=== PATIENT | female | born 2000 | race Caucasian/White ===

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

== ENCOUNTER → 2019-03-04 12:11 | Outpatient (CLI) | payer MEDICAID, SELFPAY ==
[2019-03-04 11:26] VITALS: BMI 25.8
[2019-03-04 13:21] LABS: Prolactin 5.4 ng/mL; Thyroid Stim Hormone (TSH) 1.01 uIU/mL (0.358-3.74)
== END ==
PROVIDERS: Family Provider Pediatrics; PCP Pediatrics; Referring Provider Nurse Practitioner Women's Health; Visit Provider Nurse Practitioner Women's Health
DX: N91.1 Secondary amenorrhea (principal)
CPT/HCPCS: 36415; 84146; 84443

== ENCOUNTER 2019-03-31 11:10 | Emergency (ER) | payer MEDICAID, SELFPAY ==
[2019-03-04 11:26] VITALS: BMI 25.8
[2019-03-31 11:11] VITALS: BP 130/73; PULSE 90; RESP 16; TEMP 36.8; BMI 23.1
--- NOTE | 2019-03-31 11:26 | ED.VIS.GEN ---
History of Present Illness Chief Complaint: Fatigue Informant: Patient Onset: Today Current Severity: Mild Maximum Severity: Mild Narrative: Patient felt slightly lightheaded this morning. She has had some dental pain for some time and it got worse over the past few days. She may have had decreased p.o. intake. She feels lightheaded. She has no chest pain shortness of breath fever or chills. She denies . She has no PE or DVT risk factors. She did not have a syncopal episode she does not have a headache but she does have right side of the face pain. Past Medical History - Allergies and Home Meds Allergies/Adverse Reactions: Allergies No Known Allergies Allergy (Verified 03/31/19 11:12) Primary Care Physician: Deysi Soriano MD [Primary Care Provider] - Past Medical History: - - Endometriosis Smoking Status: Unknown if ever smoked Review of Systems All systems negative except as indicated General: Denies: Fever Eyes: Denies: Visual changes - bilaterally ENT: Reports: - - Dental pain is in HPI Cardiovascular: Denies: Chest pain Respiratory: Denies: Dyspnea, Cough Gastrointestinal: Denies: Abdominal pain Genitourinary: Denies: Dysuria Musculoskeletal: Denies: Myalgias Skin: Denies: Rash, Abscess Neurological: Denies: Weakness Physical Exam Vital Signs/Narrative: Vital Signs Temp Pulse Resp BP 03/31/19 11:11 98.2 F 90 16 130/73 H General: Well nourished, Well developed Eyes: Perrl ENT: - - Slightly dry mucous membrane. She has right lower molar tenderness to palpation she has dental decay I cannot palpate any abscesses. There is no facial swelling. Cardiovascular: Regular rate, Regular rhythm Respiratory: No distress, CTA bilaterally Abdomen: Soft, Nontender Back: Nontender, Normal Inspection Extremities: Nontender Skin: Normal color Neurological: Alert Diagnostic/Tx/Re-eval - Medical Decision Making Patient has a normal exam, she is not tachycardic, she has slightly dry mucous membranes which is likely causing her to be lightheaded she opted for p.o. hydration. I will start antibiotics and give her Naprosyn for home. Bath discharge stable condition ED Disposition - Plan for ED Patient: Disposition: Home or Assisted Living Diagnosis: Mild dehydration, Pain, dental Prescriptions: Naproxen [Naprosyn] 500 mg PO BID PRN #20 tab Transmission Status: Pending to [facility] #30 Penicillin Vk [Pen-Vee K 250MG] 250 mg PO 4X/DAY #28 tab Transmission Status: Pending to [facility] #30 Ondansetron [Zofran Odt] 4 mg PO Q8H PRN PRN #10 tab PRN Reason: Nausea Transmission Status: Pending to [facility] #30 Referrals: Deysi Soriano MD [Primary Care Provider] - 3-5 Days
[2019-03-31 11:59] VITALS: BP 107/63; PULSE 72
== END 2019-03-31 12:09 | disposition home or self-care (01) ==
LOC: ED 12:01
PROVIDERS: Emergency Provider Emergency Medicine; Family Provider Pediatrics; PCP Pediatrics
DX: E86.0 Dehydration (principal); K08.89 Other specified disorders of teeth and supporting structures; K02.9 Dental caries, unspecified; Z79.899 Other long term (current) drug therapy
CPT/HCPCS: 99282

== ENCOUNTER 2019-05-21 15:31 | Emergency (ER) | payer MEDICAID, SELFPAY ==
[2019-05-21 15:31] VITALS: BP 118/79; PULSE 76; RESP 15; TEMP 36.7; O2SAT 98; BMI 22.3
--- NOTE | 2019-05-21 15:41 | CT_ITS ---
STUDY: CT ABDOMEN AND PELVIS WITH CONTRAST REASON FOR EXAM: Female, 19 years old. N/V, LOWER ABD PAIN SINCE SATURDAY NIGHT. FATIGUE. H/O ENDOMETRIOSIS, DIAGNOSED NOVEMBER 2018 AFTER LAPARSCOPY. RADIATION DOSAGE (If Supplied By Facility): CTDIvol = ( 8.33 ) mGy, DLP = ( 328.10 ) mGycm TECHNIQUE: Transaxial images were obtained from the dome of the diaphragm to the symphysis pubis without oral contrast. Oral and amp; IV Gastrografin and amp; 100mL Isovue-300 was administered. Sagittal and coronal images were reconstructed. Individualized dose optimization techniques were used for this CT. COMPARISON: None. FINDINGS: The visualized lung bases are unremarkable. The visualized portions of the heart are within normal limits. Normal liver. Normal gallbladder and extrahepatic biliary system. Normal spleen. Normal pancreas. Normal bilateral adrenal glands. Normal right kidney. Normal left kidney. Normal visualized stomach. Normal small intestine. Normal colon. There is non-visualization of the appendix. Normal abdominal aorta. Normal inferior vena cava. Normal retroperitoneum. Normal urinary bladder. There is a small umbilical hernia containing fat. Normal osseous structures. CT/Abdomen/Pelvis WITH Contrast IMPRESSION: Small fat-containing umbilical hernia. The appendix is not visualized. There is no evidence of pericecal inflammatory process. There is no evidence of free intra-abdominal or intrapelvic air or fluid. Electronically Signed: Taras Weber MD at 17:47 EST , Service support ,
--- NOTE | 2019-05-21 15:52 | ED.DCSUM_ITS ---
- ER Visit Summary Date of Service: 05/21/19 Chief Complaint: Nausea, vomiting History of Present Illness: The patient is a 19 F presenting with nausea, vomiting, diarrhea. This started on Saturday. She states she had several episodes of diarrhea overnight and she had 2 episodes of vomiting. She also complains of abdominal pain. She took a test yesterday which was negative. She states her period is 1 day late but her periods are typically irregular. She denies fever. Denies other complaints. Physical Examination: Vitals are stable. Patient is afebrile. Alert no acute distress. HEENT exam is unremarkable. Neck is supple. Lungs are clear and equal bilaterally. Heart is regular rate and rhythm. Abdomen is soft right lower quadrant, no rebound or guarding Extremities are unremarkable. Skin is warm and dry. No focal neurologic deficit. Remainder of exam is unremarkable. Emergency Department Course and Treatment: CBC, chemistries unremarkable other than potassium 3.0. Liver lipase are normal. hCG negative. Patient given IV fluids, Zofran, potassium oral replacement. CT abdomen pelvis shows small fat- containing umbilical hernia. The appendix is not visualized. There is no evidence of pericecal inflammatory process. There is no evidence of free intra- abdominal or intrapelvic air or fluid. On reevaluation, patient is resting comfortably. She was advised strict return instructions should her symptoms worsen. Advised to follow-up with primary care physician. She is given prescription for Zofran. Advised return to ED for worsening complaints. Disposition: Discharge home Impression: Vomiting and diarrhea This note was generated with [employer] dictation software. It may contain incorrect words, spelling, and punctuation that were not noted in review of the chart prior to signing ED Disposition - Plan for ED Patient: Instructions: VOMITING AND DIARRHEA, Nonspecific (Adult) Prescriptions: Ondansetron [Zofran Odt] 4 mg PO Q8H PRN PRN #10 tab PRN Reason: Nausea Prescription Printed Referrals: Deysi Soriano MD [Primary Care Provider] -
[2019-05-21 15:57] LABS: Absolute Lymphocyte Count 1.73 X10^3/uL (0.83-4.51); Absolute Neutrophil Count 3.4 X10^3/uL (2.0-7.7); Basophil# 0.03 X10^3/uL; Basophil% 0.5 % (0-1); Eosinophil# 0.06 X10^3/uL; Eosinophils% 1.1 % (0-5); Hematocrit 41.2 % (37-47); Hemoglobin 14.5 g/dL (12.0-15.0); Lymphocyte # 1.73 X10^3/ul (4.0); Lymphocyte % 30.5 % (19-41); Mean Corp Hgb Conc 35.2 g/dL (32-36); Mean Corpuscular Hgb 30.3 pg (27.0-32.0); Mean Platelet Vol. 10.5 fl (6.2-12.0); Monocyte# 0.47 X10^3/uL; Monocyte% 8.3 % (0-10); NRBC Flagged by Analyzer 0 % (0-5); Neutrophil # 3.37 X10^3/uL (2.7-7.7); Neutrophil % 59.4 % (47-70); Platelet Count 153 K/mm3 (150-450); RBC Distribution Width CV 11.8 % (11.6-14.6); RBC Distribution Width SD 37.2 fl (35.1-43.9); Red Blood Count 4.79 M/mm3 (4.2-5.4); White Blood Count 5.7 K/mm3 (4.4-11.0)
[2019-05-21 16:16] VITALS: RESP 16
[2019-05-21 16:16] LABS: ALB/GLOB Ratio 1.2 RATIO (0.9-2.4); AST(SGOT) 24 U/L (15-37); Alanine Aminotransfer ALT/SGPT 27 U/L (13-56); Albumin, Serum 3.9 g/dL (3.2-5.0); Alkaline Phosphatase 79 U/L (45-117); Anion Gap 5 (5-15); BUN 16 mg/dL (7-18); BUN/Creat Ratio 22.3 RATIO (10-20); Calcium,Total 8.8 mg/dL (8.5-10.1); Chloride 109 mmol/L (98-107); Creatinine, Serum 0.72 mg/dL (0.55-1.02); EST Glomerular Filtration Rate 110 mL/min (>60); Est Glom Filt Rate - Afr Amer 134 mL/min (>60); Estimated Creatinine Clearance 107.63 ml/min; Globulin 3.3 g/dL (2.2-4.2); Glucose 79 mg/dL (74-106); Lipase 165 U/L (73-393); Protein, Total 7.2 g/dL (6.4-8.2); Sodium Level 140 mmol/L (136-145)
[2019-05-21] MEDS: 0.9% Normal Saline 1,000 ML 1000 ML IV (16:16)
[2019-05-21] MEDS: Ondansetron 4 MG/2 ML Vial IV (16:16)
[2019-05-21 16:21] LABS: Internal QC Validated? YES +Cl - CLEAR BKGD; Pregnancy, Serum, hCG Quali. NEGATIVE Negative
--- NOTE | 2019-05-21 18:17 | ED.DEP ---
ED Disposition - Plan for ED Patient: Instructions: VOMITING AND DIARRHEA, Nonspecific (Adult) Prescriptions: Ondansetron [Zofran Odt] 4 mg PO Q8H PRN PRN #10 tablet PRN Reason: Nausea Referrals: Deysi Soriano MD [Primary Care Provider] -
[2019-05-21 18:29] VITALS: BP 116/75; PULSE 80; RESP 16; O2SAT 100
== END 2019-05-21 18:30 | disposition home or self-care (01) ==
LOC: ED 16:39
PROVIDERS: Emergency Provider Emergency Medicine; PCP Pediatrics
DX: R11.2 Nausea with vomiting, unspecified (principal); R19.7 Diarrhea, unspecified; K42.9 Umbilical hernia without obstruction or gangrene; Z79.899 Other long term (current) drug therapy
CPT/HCPCS: 74177; 80053; 83690; 84703; 85025; 96361; 96374; 99284; J7030; Q9967; A4216; J2405

== ENCOUNTER 2020-03-01 10:58 | Emergency (ER) | payer MEDICAID, SELFPAY ==
[2019-10-07 09:30] VITALS: BMI 22.3
[2020-03-01 10:59] VITALS: BP 131/66; PULSE 93; RESP 16; TEMP 36.3; BMI 22.8
--- NOTE | 2020-03-01 11:40 | US_ITS ---
STUDY: FIRST TRIMESTER OBSTETRICAL ULTRASOUND REASON FOR EXAM: Female, 19 years old PAIN W/EARLY PREG QUANT [id number] LMP: 01/17/2020 TECHNIQUE: Transvaginal TECHNICAL QUALITY: Adequate. PRIOR ULTRASOUND: None. FINDINGS: There is visualization of a single gestational sac in a normal intrauterine position. The mean sac diameter (MSD) measures 1.28 cm, indicating an estimated gestational age (EGA) of 6 weeks, 0 days. The gestational sac shape is within normal limits. There is a visualized yolk sac. The yolk sac measures 4.2 mm. The placenta is non-visualized. There is visualization of a live embryo. The crown-rump length (CRL) measures 2.5 mm, indicating an estimated gestational age (EGA) of 5 weeks, 6 days. There is demonstrated cardiac activity with a heart rate of 1:15 bpm. The estimated gestation age (EGA) by LMP is 6 weeks, 2 days. The estimated date of delivery (CHRISTIE) by LMP is 10/23/2020. The estimated gestation age (EGA) by US is 6 weeks, 0 days. The estimated date of delivery (CHRISTIE) by US is 10/25/2020. The uterus measures 7.7 cm x 6.5 cm x 5.1 cm. There is no demonstrated uterine fibroid. The cervix is closed. There is a 1.8 cm x 0.8 cm by 1.3 cm subchorionic bleed. The right ovary measures 4.3 cm x 2.8 cm x 2.0 cm. 2.1 cm x 1.6 cm x 1.9 cm hypoechoic nodule in the right ovary most likely representing a regressing cyst. There is no visualized right adnexal mass or complex lesion. The left ovary measures 2.4 cm x 2.6 cm x 1.3 cm. There is no left ovarian cyst. There is no visualized left adnexal mass or complex lesion. There is no fluid in the cul de sac. US/Transvaginal w/Preg US IMPRESSION: Single live uterine gestation with a mean gestational age of 6 weeks. Small subchorionic bleed. Electronically Signed: Santos Burnett, at 13:55 EDT , Service support ,
--- NOTE | 2020-03-01 11:41 | ED.DCSUM_ITS ---
- ER Visit Summary Date of Service: 03/01/20 Chief Complaint: [Abdominal pain] History of Present Illness: The patient is a 19 F [presents to the emergency department complaint of abdominal pain that started around 9:40 AM. Patient states that she had gone to the restroom and had some discomfort that she noted on the right side of her lower pelvis and a burning sensation in her abdomen. She has had that discomfort since that time. Patient is and her last menstrual period was January 16. She has taken multiple home test that been positive. She has a follow-up appointment with her NEWS VIDEOTAPE EDITOR but has had no care as of yet and no ultrasound. She denies any vaginal bleeding. She denies urinary symptoms. She had some mild nausea. Patient is normally a smoker but she quit when she found out she was .] Physical Examination: [HEENT-PERRLA, EOMI. Cranial nerves II through XII grossly intact. TMs clear. Mucous membranes moist. No adenopathy. Cardiovascular-regular rate and rhythm without murmur or ectopy Lungs-clear to auscultation, chest wall stable without crepitus or subcu emphysema Abdomen-normoactive bowel sounds, soft. Patient has some mild tenderness over the right lower quadrant into the right pelvis. There is no rebound, rigidity, or peritoneal signs. No masses palpated. Extremities-intact ?4, normal range of motion, normal pulses, atraumatic] Test Results: [CBC with differential obtained showed a white count 5.7, hemoglobin 13, hematocrit 40, plates 151. Urinalysis was normal. Blood type was a positive. Patient had a pelvic ultrasound that showed a single live intrauterine at 6 weeks with small subchorionic bleed. There was heart tones of 115 bpm.] Emergency Department Course and Treatment: [IV line established on arrival. Case was discussed with patient's NEWS VIDEOTAPE EDITOR who asked that she follow-up with our office.] On repeat examination at 1410 patient's abdominal pain essentially resolved. Treatment Plan: [Patient to follow-up with her NEWS VIDEOTAPE EDITOR at scheduled appointment. She is advised to return if worsening pain, fever, vomiting, vaginal bleeding, or condition should worsen anyway.] Disposition: [Discharged home in stable condition] Impression: [Abdominal pain-resolved First trimester ] This note was generated with [employer] software. It may contain incorrect words, spelling, and punctuation that were not noted in review of the chart prior to signing ED Disposition - Plan for ED Patient: Referrals: Deysi Soriano MD [Primary Care Provider] -
[2020-03-01 12:04] LABS: Absolute Lymphocyte Count 1.85 X10^3/uL (0.83-4.51); Absolute Neutrophil Count 3.3 X10^3/uL (2.0-7.7); Basophil# 0.04 X10^3/uL; Basophil% 0.7 % (0-1); Eosinophil# 0.05 X10^3/uL; Eosinophils% 0.9 % (0-5); Hematocrit 39.9 % (37-47); Hemoglobin 13.3 g/dL (12.0-15.0); Lymphocyte # 1.85 X10^3/ul (4.0); Lymphocyte % 32.3 % (19-41); Mean Corp Hgb Conc 33.3 g/dL (32-36); Mean Corpuscular Hgb 29.3 pg (27.0-32.0); Mean Corpuscular Volume 87.9 fL (81-99); Mean Platelet Vol. 10.9 fl (6.2-12.0); Monocyte# 0.47 X10^3/uL; Monocyte% 8.2 % (0-10); NRBC Flagged by Analyzer 0 % (0-5); Neutrophil # 3.31 X10^3/uL (2.7-7.7); Neutrophil % 57.7 % (47-70); Platelet Count 151 K/mm3 (150-450); RBC Distribution Width CV 12.3 % (11.6-14.6); RBC Distribution Width SD 39.9 fl (35.1-43.9); Red Blood Count 4.54 M/mm3 (4.2-5.4); White Blood Count 5.7 K/mm3 (4.4-11.0)
[2020-03-01 12:19] LABS: Mucous, Urine 0 SEEN /hpf (<or=2+); Red Blood Cells-Urine 0 SEEN /hpf (0-5)
[2020-03-01 12:42] LABS: Color, Urine Yellow (Yellow); Glucose, Dipstick Normal (Normal); Ketone-Dipstick Negative (Negative); Leukocyte Esterase-Dipstick Negative /ul (Negative); Nitrite-Dipstick Negative (Negative); Occult Blood-Urine Negative /ul (Negative); Protein-Dipstick Negative (Negative); Urine Bilirubin Dipstick Negative (Negative); Urine Clarity Clear (Clear); Urine Urobilinogen Normal (Normal)
[2020-03-01 12:55] LABS: Bacteria 1+ /hpf (None Seen); Squamous Epithelial Cells - UA 5-10 SEEN /hpf (5-10); White Blood Cells 0-5 SEEN /hpf (0-5)
[2020-03-01 13:10] LABS: hCG Titer Quant., Serum 16458 mIU/mL (1-3)
--- NOTE | 2020-03-01 14:09 | ED.DEP ---
ED Disposition - Plan for ED Patient: Instructions: ED Abdominal Pain Unkn Cause Fem Referrals: Deysi Soriano MD [Primary Care Provider] - Cathy Wakefield MD [STAFF PHYSICIAN] - 5-7 Days
[2020-03-01 14:15] VITALS: BP 113/70; PULSE 77; RESP 16; O2SAT 100
== END 2020-03-01 14:16 | disposition home or self-care (01) ==
LOC: ED 11:46
PROVIDERS: Emergency Provider Emergency Medicine; PCP Pediatrics
DX: O26.891 Other specified pregnancy related conditions, first trimester (principal); R10.31 Right lower quadrant pain; O20.9 Hemorrhage in early pregnancy, unspecified; Z87.891 Personal history of nicotine dependence; Z3A.01 Less than 8 weeks gestation of pregnancy
CPT/HCPCS: 76817; 81001; 84702; 85025; 86900; 86901; 99282; A4216

== ENCOUNTER 2020-03-13 13:12 | Emergency (ER) | payer MEDICAID, SELFPAY ==
[2020-03-13 13:12] VITALS: BP 128/73; PULSE 83; RESP 16; TEMP 36.7; O2SAT 99
[2020-03-13 13:13] VITALS: BP 128/73; PULSE 83; RESP 16; TEMP 36.7; BMI 24.0
--- NOTE | 2020-03-13 13:29 | ED.DCSUM_ITS ---
History of Present Illness Chief Complaint: Complaint Detail of Chief Complaint: Dysuria, frequency and hematuria Onset: Yesterday Context: Sudden Onset Timing: Intermittent Quality: Urinary symptoms Location: , lower Current Severity: - Maximum Severity: Moderate Worsened by: Urination Relieved by: Nothing Associated Symptoms: No associated symptoms Narrative: Patient is a G2, P1 Ab0 female who had an ultrasound on March 01 and revealed a single live intrauterine at approximately 6 weeks. She presents with dysuria, frequency and hematuria. She denies nausea or vomiting. She denies suprapubic or central low back pain. She denies right or left flank pain. She denies vaginal bleeding or vaginal discharge. She states she had no complications with first . She denies rash. She denies headache, visual, ocular auditory symptoms. Prior similar symptoms: Yes Recent Illness/Hospitalization: No - Abdominal pain, ER visit March 01, 2020 - Past Medical History (1) Anxiety and depression Status: Acute (2) Endometriosis Status: Acute Comment: confirmed with laparoscopy 2018 (3) Fatigue Status: Acute (4) Pilonidal cyst Status: Acute Past Medical History - Allergies and Home Meds Allergies/Adverse Reactions: Allergies No Known Allergies Allergy (Verified 03/13/20 13:15) Primary Care Physician: Deysi Soriano MD [Primary Care Provider] - Prior records reviewed: Yes Surgical History: noncontributory Lives: With Family Smoking Status: Former smoker Alcohol: None Drugs: None Review of Systems General: Denies: Chills, Fever, Malaise, Subjective, Sweats Eyes: Denies: Visual changes - bilaterally, Blurred Vision - bilaterally ENT: Denies: Rhinorrhea, Sore throat Cardiovascular: Denies: Chest pain, Palpitations Respiratory: Denies: Dyspnea, Cough, Dyspnea on exertion Gastrointestinal: Reports: Nausea - Morning sickness. Denies: Abdominal pain, Vomiting, Diarrhea Genitourinary: Reports: Dysuria, Hematuria, Frequency Musculoskeletal: Denies: Myalgias, Arthralgias, Neck pain, Back pain Neurological: Denies: Headache, Weakness Physical Exam Vital Signs/Narrative: Vital Signs Temp Pulse Resp BP Pulse Ox 03/13/20 13:13 98.1 F 83 16 128/73 H 03/13/20 13:12 98.1 F 83 16 128/73 H 99 Inital Vital Signs reviewed: Yes General: Well nourished, Well developed, No Acute Distress Head: Normocephalic, Atraumatic Eyes: Perrl, EOMI. Negative for: Pale conjunctiva, Scleral icterus ENT: Moist mucous membranes, No rhinorrhea Neck: Supple, Nontender, No lymphadenopathy, No JVD Cardiovascular: Regular rate, Regular rhythm, No murmurs, Normal S1, Normal S2 Respiratory: No distress, CTA bilaterally, Chest nontender Abdomen: Soft, Nontender, Nondistended, Normal bowel sounds. Negative for: No masses Back: Nontender, Normal Inspection. Negative for: CVA tenderness Skin: Negative for: Normal color, No rash Neurological: Alert, Oriented x3, Cranial nerves II-XII grossly intact, Normal Strength, Normal Sensation Psychological: Normal affect, Normal Mood Diagnostic/Tx/Re-eval Laboratory Results 03/13/20 11:20 Urine Color Yellow Urine Clarity Sl. Cloudy Urine pH 6.5 Ur Specific [place] 1.020 Urine Protein 30 H Urine Glucose (UA) Normal Urine Ketones Negative Urine Occult Blood 250 H Urine Nitrite Negative Urine Bilirubin Negative Urine Urobilinogen Normal Ur Leukocyte Esterase 500 H Urine RBC 25-50 SEEN Urine WBC 50-100 SEEN Ur Squamous Epith Cells 0-5 SEEN Urine Bacteria 2+ Urine Mucus 0 SEEN Urine is consistent with infection. She received a dose of Rocephin IV piggyback. She was discharged with prescription for antibiotics. She is to follow-up with her motor driver Dr. Gregorio Gutierrez in 2 to 3 days. - Medical Decision Making Presents with urinary symptoms. She is . Will obtain UA. If evidence of bacteria or prior urea will send culture and treat with antibiotics since she is . ED Disposition - Plan for ED Patient: Disposition: Home or Assisted Living Diagnosis: Acute cystitis during in first trimester Instructions: ED CYSTITIS Female Adult Prescriptions: Cephalexin [Keflex] 500 mg PO Q6 #28 cap Transmission Status: Pending to [facility]30 Phenazopyridine HCl [Pyridium] 200 mg PO TID #10 tab Transmission Status: Pending to [facility]30 Referrals: Deysi Soriano MD [Primary Care Provider] - Cathy Wakefield MD [STAFF PHYSICIAN] - 3-5 Days
[2020-03-13 13:39] LABS: Mucous, Urine 0 SEEN /hpf (<or=2+)
[2020-03-13 13:41] LABS: Color, Urine Yellow (Yellow); Glucose, Dipstick Normal (Normal); Ketone-Dipstick Negative (Negative); Leukocyte Esterase-Dipstick 500 /ul (Negative); Nitrite-Dipstick Negative (Negative); Occult Blood-Urine 250 /ul (Negative); Protein-Dipstick 30 mg/dl (Negative); Urine Bilirubin Dipstick Negative (Negative); Urine Clarity Sl. Cloudy (Clear); Urine Urobilinogen Normal (Normal); Urine pH 6.5 (5.0 - 8.0)
[2020-03-13 13:48] LABS: Bacteria 2+ /hpf (None Seen); Red Blood Cells-Urine 25-50 SEEN /hpf (0-5); Squamous Epithelial Cells - UA 0-5 SEEN /hpf (5-10); White Blood Cells 50-100 SEEN /hpf (0-5)
[2020-03-13 14:48] VITALS: BP 128/73; PULSE 83; RESP 16; TEMP 36.7; O2SAT 99
[2020-03-13] MEDS: Ceftriaxone 1 GM/50 ML BAG IV (14:51)
[2020-03-13 15:14] VITALS: BP 118/62; PULSE 79; RESP 18; O2SAT 99
== END 2020-03-13 15:15 | disposition home or self-care (01) ==
PROVIDERS: Emergency Provider Emergency Medicine; PCP Pediatrics
DX: O23.11 Infections of bladder in pregnancy, first trimester (principal); Z3A.01 Less than 8 weeks gestation of pregnancy; Z87.891 Personal history of nicotine dependence
CPT/HCPCS: 81001; 96365; 99283; A4216

== ENCOUNTER → 2020-03-15 17:00 | Outpatient (CLI) | payer MEDICAID, SELFPAY ==
[2020-03-15 11:31] VITALS: BMI 22.0
== END ==
PROVIDERS: PCP Pediatrics; Referring Provider Nurse Practitioner Women's Health; Visit Provider Nurse Practitioner Women's Health
DX: N39.0 Urinary tract infection, site not specified (principal)
CPT/HCPCS: 87086

== ENCOUNTER → 2020-03-17 | Outpatient (CLI) | payer MEDICAID, SELFPAY ==
[2020-03-17 11:43] VITALS: BMI 23.0
[2020-03-21 20:07] LABS: Chlamydia By Nucleic Acid AMP Negative (Negative)
[2020-03-21 21:08] LABS: Gonococcus By Nucleic Acid AMP Negative (Negative)
== END | disposition home or self-care (01) ==
LOC: LABSPEC 13:13
PROVIDERS: PCP Pediatrics; Visit Provider Obstetrics & Gynecology
DX: Z34.90 Encounter for supervision of normal pregnancy, unspecified, unspecified trimester (principal)
CPT/HCPCS: 87491; 87591

== ENCOUNTER → 2020-03-30 17:38 | Outpatient (CLI) | payer MEDICAID, SELFPAY ==
[2020-03-17 11:43] VITALS: BMI 23.0
== END ==
PROVIDERS: PCP Pediatrics
DX: R09.89 Other specified symptoms and signs involving the circulatory and respiratory systems (principal); G44.209 Tension-type headache, unspecified, not intractable
CPT/HCPCS: 87635; C9803; U0003

== ENCOUNTER → 2020-04-04 09:32 | Outpatient (CLI) | payer MEDICAID, SELFPAY ==
[2020-03-17 11:43] VITALS: BMI 23.0
[2020-04-04 10:35] LABS: Absolute Lymphocyte Count 1.63 X10^3/uL (0.83-4.51); Absolute Neutrophil Count 4.2 X10^3/uL (2.0-7.7); Basophil# 0.02 X10^3/uL; Basophil% 0.3 % (0-1); Eosinophil# 0.08 X10^3/uL; Eosinophils% 1.3 % (0-5); Hematocrit 40.8 % (37-47); Hemoglobin 13.3 g/dL (12.0-15.0); Lymphocyte # 1.63 X10^3/ul (4.0); Lymphocyte % 25.9 % (19-41); Mean Corp Hgb Conc 32.6 g/dL (32-36); Mean Corpuscular Hgb 28.7 pg (27.0-32.0); Mean Corpuscular Volume 87.9 fL (81-99); Mean Platelet Vol. 10.9 fl (6.2-12.0); Monocyte# 0.38 X10^3/uL; NRBC Flagged by Analyzer 0 % (0-5); Neutrophil # 4.17 X10^3/uL (2.7-7.7); Neutrophil % 66.3 % (47-70); Platelet Count 170 K/mm3 (150-450); RBC Distribution Width CV 12.8 % (11.6-14.6); RBC Distribution Width SD 41.6 fl (35.1-43.9); Red Blood Count 4.64 M/mm3 (4.2-5.4); White Blood Count 6.3 K/mm3 (4.4-11.0)
[2020-04-04 10:39] LABS: NATERA MAILED SPECIMEN
[2020-04-04 11:32] LABS: HIV - WCH Non-Reactive (Nonreactive); Hepatitis B Surface Antigen Non-Reactive (Nonreactive); Hepatitis C Antibody Non-Reactive (Nonreactive)
[2020-04-07 02:17] LABS: Rapid Plasmin Reagin (RPR) NONREACTIVE (NONREACTIVE)
== END ==
PROVIDERS: PCP Pediatrics; Referring Provider Obstetrics & Gynecology; Visit Provider Obstetrics & Gynecology
DX: Z34.81 Encounter for supervision of other normal pregnancy, first trimester (principal); Z31.430 Encounter of female for testing for genetic disease carrier status for procreative management
CPT/HCPCS: 36415; 85025; 86592; 86703; 86803; 86850; 86900; 86901; 87340

== ENCOUNTER → 2020-04-13 | Outpatient (CLI) | payer MEDICAID, SELFPAY ==
[2020-04-13 11:24] VITALS: BMI 22.7
== END | disposition home or self-care (01) ==
LOC: LABSPEC 12:46
PROVIDERS: PCP Pediatrics; Referring Provider Obstetrics & Gynecology; Visit Provider Obstetrics & Gynecology
DX: Z34.80 Encounter for supervision of other normal pregnancy, unspecified trimester (principal)
CPT/HCPCS: 87086; 87088

== ENCOUNTER → 2020-05-03 12:23 | Outpatient (CLI) | payer MEDICAID, SELFPAY ==
[2020-03-17 11:43] VITALS: BMI 23.0
[2020-04-13 11:24] VITALS: BMI 22.7
== END ==
PROVIDERS: PCP Pediatrics; Referring Provider Obstetrics & Gynecology; Visit Provider Obstetrics & Gynecology
DX: N63.20 Unspecified lump in the left breast, unspecified quadrant (principal)

== ENCOUNTER → 2020-05-23 | Outpatient (CLI) | payer MEDICAID, SELFPAY ==
[2020-05-23 15:33] VITALS: BMI 24.9
== END | disposition home or self-care (01) ==
LOC: LABSPEC 16:43
PROVIDERS: PCP Pediatrics; Visit Provider Obstetrics & Gynecology
DX: O26.899 Other specified pregnancy related conditions, unspecified trimester (principal); N89.8 Other specified noninflammatory disorders of vagina
CPT/HCPCS: 87070; 87205

== ENCOUNTER → 2020-08-04 10:42 | Outpatient (CLI) | payer MEDICAID, SELFPAY ==
[2020-07-08 11:02] VITALS: BMI 26.2
[2020-08-04 11:37] LABS: Absolute Lymphocyte Count 1.59 X10^3/uL (0.83-4.51); Absolute Neutrophil Count 6.7 X10^3/uL (2.0-7.7); Basophil# 0.03 X10^3/uL; Basophil% 0.3 % (0-1); Eosinophil# 0.11 X10^3/uL; Eosinophils% 1.2 % (0-5); Hematocrit 33.4 % (37-47); Hemoglobin 10.6 g/dL (12.0-15.0); Lymphocyte # 1.59 X10^3/ul (4.0); Lymphocyte % 17.5 % (19-41); Mean Corp Hgb Conc 31.7 g/dL (32-36); Mean Corpuscular Volume 88.4 fL (81-99); Monocyte# 0.61 X10^3/uL; Monocyte% 6.7 % (0-10); NRBC Flagged by Analyzer 0 % (0-5); Neutrophil # 6.73 X10^3/uL (2.7-7.7); Neutrophil % 73.9 % (47-70); Platelet Count 168 K/mm3 (150-450); Red Blood Count 3.78 M/mm3 (4.2-5.4); White Blood Count 9.1 K/mm3 (4.4-11.0)
[2020-08-04 11:58] LABS: Glucose Challenge Gest 1H 50g 127 mg/dL (70-140)
[2020-08-04 12:15] LABS: Rubella IgG Reactive (Nonreactive)
== END ==
PROVIDERS: Referring Provider Obstetrics & Gynecology; Visit Provider Obstetrics & Gynecology
DX: Z34.90 Encounter for supervision of normal pregnancy, unspecified, unspecified trimester (principal); Z13.1 Encounter for screening for diabetes mellitus
CPT/HCPCS: 36415; 82950; 85025; 86762

== ENCOUNTER → 2020-09-30 16:45 | Outpatient (CLI) | payer MEDICAID, SELFPAY ==
[2020-09-30 13:32] VITALS: BMI 27.3
== END ==
PROVIDERS: Referring Provider Obstetrics & Gynecology; Visit Provider Obstetrics & Gynecology
DX: Z34.80 Encounter for supervision of other normal pregnancy, unspecified trimester (principal)
CPT/HCPCS: 87081

== ENCOUNTER → 2020-10-21 14:27 | Outpatient (CLI) | payer MEDICAID, SELFPAY ==
[2020-09-30 13:32] VITALS: BMI 27.3
[2020-10-21 11:04] VITALS: BMI 27.3
== END ==
PROVIDERS: Visit Provider Obstetrics & Gynecology
DX: Z34.90 Encounter for supervision of normal pregnancy, unspecified, unspecified trimester (principal)
CPT/HCPCS: 87635; C9803; U0005; U0003

== ENCOUNTER 2020-10-24 13:15 | Outpatient (CLI) | payer MEDICAID, SELFPAY ==
[2020-10-21 11:04] VITALS: BMI 27.3
[2020-10-24 14:18] LABS: ROM Internal Control Test YES-OK TO RESULT pt. (Internal QC); ROM Patient Test Negative (Negative)
[2020-10-24 14:31] VITALS: BP 122/75; PULSE 90
[2020-10-24 14:32] VITALS: BMI 30.9
--- NOTE | 2020-10-25 03:32 | OB.TRI.PN ---
Progress Notes Date of Service: 10/24/20 Progress Note: Patient presents for triage evaluation secondary to possible rupture of membranes. Upon evaluation her ROM plus was negative and she did not have any persistent leaking. FHT: 130 Moderate variability reactive no decelerations category I tracing [place]: q 4-6 Contractions Assessment and plan: Amnionic membranes intact false labor no cervical change reactive NST, reassuring maternal and status patient discharged to home to follow-up as scheduled. See problem list details for additional plan information. Laboratory Studies: Laboratory Tests 10/24/20 Range/Units 13:35 Vag Amniotic Fld Detect Negative (Negative) Charges/Coding Procedures Urinary/Genital 52xxx-59xxx: [id number] non-stress test Interp Assessment & Plan (1) Intact amniotic membranes:
== END 2020-10-24 15:35 | disposition home or self-care (01) ==
LOC: WPOUT 13:20 → WP 13:22
PROVIDERS: Referring Provider Obstetrics & Gynecology; Visit Provider Obstetrics & Gynecology
DX: O47.9 False labor, unspecified (principal); Z3A.00 Weeks of gestation of pregnancy not specified
CPT/HCPCS: 59050; 84112; 99218; G0378

== ENCOUNTER 2020-10-25 23:15 | Inpatient (IN) | payer MEDICAID, SELFPAY ==
[2020-10-24 14:32] VITALS: BMI 30.9
[2020-10-25 22:51] VITALS: BMI 30.9
[2020-10-25 22:58] VITALS: BP 122/78; PULSE 96; TEMP 36.6
[2020-10-25] MEDS: Lactated Ringers 500 ML 999 ML IV (23:42)
[2020-10-25 23:54] LABS: Absolute Lymphocyte Count 1.69 X10^3/uL (0.83-4.51); Basophil# 0.03 X10^3/uL; Basophil% 0.3 % (0-1); Eosinophil# 0.09 X10^3/uL; Eosinophils% 0.9 % (0-5); Hematocrit 31.6 % (37-47); Lymphocyte # 1.69 X10^3/ul (0.83-4.51); Lymphocyte % 17.5 % (19-41); Mean Corp Hgb Conc 31.6 g/dL (32-36); Mean Corpuscular Hgb 25.4 pg (27.0-32.0); Mean Corpuscular Volume 80.2 fL (81-99); Monocyte# 0.85 X10^3/uL; Monocyte% 8.8 % (0-10); NRBC Flagged by Analyzer 0 % (0-5); Neutrophil # 6.95 X10^3/uL (2.7-7.7); Platelet Count 160 K/mm3 (150-450); RBC Distribution Width CV 15.9 % (11.6-14.6); RBC Distribution Width SD 46.1 fl (35.1-43.9); Red Blood Count 3.94 M/mm3 (4.2-5.4); White Blood Count 9.7 K/mm3 (4.4-11.0)
[2020-10-26] VITALS (52 sets, daily range): BP systolic 106–131; BP diastolic 62–86; PULSE 83–107; RESP 16–20; TEMP 36.4–37.1; O2SAT 88–100
[2020-10-26] MEDS: 0.9% Saline Lock 10 ML Syringe IV
[2020-10-26] MEDS: Lactated Ringers 1,000 ML 50 ML IV (00:13)
[2020-10-26] MEDS: fentaNYL-bupivacaine (epidural) 100 ML BAG EPIDURAL (00:45)
--- NOTE | 2020-10-26 01:46 | HP.PCM.OB_ITS ---
HPI - General General Date of Admission: 10/25/20 HPI Narrative FELICIA COLON, is a 20 F who presents in active labor is with cervical change to 6 cm, intact amniotic membranes small bleeding. Maternal Data Information CHRISTIE Calculator Estimated Delivery Date Method Current WG Current Estimate 10/23/20 Manual 40w 3d PFSH [facility] Medical History (Updated 10/26/20 @ 01:[address] Cathy Wakefield MD) Anxiety and depression Fatigue Pilonidal cyst Home Medications multivitamin no.47-iron fum 27 mg-folate no.1 1 mg-dha 300 mg capsule 1 cap PO DAILY 03/08/20 [History Last Taken 10/23/20] Allergy/AdvReac Type Severity Reaction Status Date / Time No Known Allergies Allergy Verified 10/24/20 14:34 Family History Father Arthritis Diabetes Hypertension High cholesterol Mother Arthritis Hypertension Lupus Surgical History History of laparoscopy Social History Smoking Status: Former smoker quit date: 07/16/17 second hand exposure: No alcohol intake: never substance use type: does not use caffeine: Yes what type of physical activity do you participate in: none seatbelt use: always do you feel safe at home: Yes 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 Date Name GA/Weeks Outcome Route Bth Weight Gen Labor Lgth Anesthesia Del Locatn Provider FOB 03/24/18 [place] 40 live - full term 7lbs 5oz Male 12 h ours epidural [facility] SM Delivery Date: 03/24/18 dec- internal monitor used. Tammy Singletary Visit Details Expected Delivery Route/Plan Labor Preferences- CB/BF classes: no labor support person: Lloyd labor intervention preferences: open to standard interventions pain management options preferred: considering natural but likely epidural cut cord/dad catch: yes : yes PP control planned: pill discussed possible routes of delivery and associated risks: discussed possible delivery modalities and possible indications for each including R/B/A of , VAVD, FAVD, and CS. questions answered. special requests: none Plans covid status: non immune flu vaccine: no tdap vaccine: given rhogam: na LARC form signed: yes movement and labor precautions reviewed. Problem list reviewed and updated with the most current plan of care details and appropriate orders placed. Relevant counseling for the gestational age provided. Continue routine care and follow up unless otherwise noted in visit notes/problem list details OB Flowsheet Initial Weight: 150 lb Date -?-?-?-?-?-?-?-?-?-?-?-?- EGA Weight BP Urine Prot -?-?-?-?-?-?-?-?-?-?-?-?- Glucose FHR FuHt Pres Dilation -?-?-?-?-?-?-?-?-?-?-?-?- Effaced St Visit Note 07/08/20 -?-?-?-?-?-?-?-?-?-?-?-?- 24w 5d 153 lb (+3 lb) 116/62 -?-?-?-?-?-?-?-?-?--?-?-?- 150 25 -?-?-?-?-?-?-?-?-?-?-?-?- SM- no vb lof go od fm no regular ctx 08/04/20 -?-?-?-?-?-?-?-?-?-?-?-?- 28w 4d 159 lb (+9 lb) 114/66 Trace -?-?-?-?-?-?-?-?-?-?-?-?- Negative 148 28 -?-?-?-?-?-?-?-?-?-?-?-?- MH-No Vb, LOF. G ood FM. 28 wk labs, rubella, tdap, larc. 08/19/20 -?-?-?-?-?-?-?-?-?-?-?-?- 30w 5d 159 lb (+9 lb) 128/82 Negative -?-?-?-?-?-?-?-?-?-?-?-?- Negative 145 30 Cephalic -?-?-?-?-?-?-?-?-?-?-?-?- SM- no vb lof go od fm no regular ctx 09/02/20 -?-?-?-?-?-?-?-?-?-?-?-?- 32w 5d 166 lb (+16 lb) 118/88 Negative -?-?-?-?-?-?-?-?-?-?-?-?- Negative 145 32 Cephalic -?-?-?-?-?-?-?-?-?-?-?-?- GP - no LOF, VB, DFM, ctx. Denies complaints. 09/16/20 -?-?-?-?-?-?-?-?-?-?-?-?- 34w 5d 167 lb 4 oz (+17 lb 4 oz) 120/80 -?-?-?-?-?-?-?-?-?-?-?-?- 140 34 Cephalic -?-?-?-?-?-?-?-?-?-?-?-?- GP - no LOF, VB, DFM, ctx. Denies complaints. Discussed labor preferences and routes of delivery. 09/30/20 -?-?-?-?-?-?-?-?-?-?-?-?- 36w 5d 169 lb 2 oz (+19 lb 2 oz) 120/80 Negative -?-?-?-?-?-?-?-?-?-?-?-?- Negative 125 36 Cephalic -?-?-?-?-?-?-?-?-?-?-?-?- GP - no LOF, VB, DFM, ctx. GBS today. 10/07/20 -?-?-?-?-?-?-?-?-?-?-?-?- 37w 5d 169 lb 6 oz (+19 lb 6 oz) 130/80 Negative -?-?-?-?-?-?-?-?-?--?-?-?- Negative 135 37 Cephalic 0 -?-?-?-?-?-?-?-?-?-?-?-?- 50 -2 GP - no LO F, VB, DFM, ctx. Denies complaints 10/14/20 -?-?-?-?-?-?-?-?-?-?-?-?- 38w 5d 176 lb (+26 lb) 130/86 Negative -?-?-?-?-?-?-?-?-?-?-?-?- Negative 135 38 Cephalic 3 -?-?-?-?-?-?-?-?-?-?-?-?- 50 -3 GP - no LO F, VB, DFM, ctx. Changed mind on name - planning on Thaddeus 10/21/20 -?-?-?-?-?-?-?-?-?-?-?-?- 39w 5d 175 lb (+25 lb) 124/78 Negative -?-?-?-?-?-?-?-?-?-?-?-?- Negative 140 39 Cephalic 3 -?-?-?-?-?-?-?-?-?-?-?-?- SM- no vb lof go od fm no regular ctx, uncomfortable 10/24/20 -?-?-?-?-?-?-?-?-?-?-?-?- 40w 1d 180 lb 5.41 oz (+30 lb 5.41 oz) 122/ -?-?-?-?-?-?-?-?-?-?-?-?- -?-?-?-?-?-?-?-?-?-?-?-?- 10/25/20 -?-?-?-?-?-?-?-?-?-?-?-?- 40w 2d 180 lb 3.2 oz (+30 lb 3.2 oz) 122/78 123/86 122/86 128/82 127/73 131/80 122/70 117/66 110/66 109/70 118/66 107/65 115/71 107/66 -?-?-?-?-?-?-?-?-?-?-?-?- -?-?-?-?-?-?-?-?-?-?-?-?- NST FHR Rate Baby A Baseline: 140 Variability:: Moderate Accelerations:: 15 x 15 Decelerations:: None NST Reactive:: Yes FHR Category:: Category I Uterine Activity:: q3-5 ROS Constitutional Constitutional: Reports systems reviewed and no addt'l complaints, except as documented ENT HEENT: Reports systems reviewed and no addt'l complaints, except as documented Cardiovascular Cardiovascular: Reports systems reviewed and no addt'l complaints, except as documented Respiratory/Chest Respiratory/Chest: Reports systems reviewed and no addt'l complaints, except as documented Gastrointestinal Gastrointestinal: Reports systems reviewed and no addt'l complaints, except as documented and nausea; Denies abdominal pain Genitourinary Genitourinary: Reports systems reviewed and no addt'l complaints, except as documented, contractions Details: present and frequency (regular ) and movement Details: present Musculoskeletal Musculoskeletal: Reports systems reviewed and no addt'l complaints, except as documented Integumentary Integumentary: Reports as per HPI Neurologic Neurologic: Reports systems reviewed and no addt'l complaints, except as documented Endocrine Endocrinology: Reports systems reviewed and no addt'l complaints, except as documented Vital Signs Vital Signs Vital Signs: 10/25/20 22:58 10/26/20 00:13 10/26/20 00:22 Temperature 97.9 F Temperature Source Temporal Pulse Rate 96 83 98 Blood Pressure 122/78 H 123/86 H BP Systolic 122 123 BP Diastolic 78 86 Pulse Ox 100 10/26/20 00:27 10/26/20 00:32 10/26/20 00:37 Temperature Temperature Source Pulse Rate 105 H 95 92 Blood Pressure 122/86 H 128/82 H BP Systolic 122 128 BP Diastolic 86 82 Pulse Ox 99 99 99 10/26/20 00:39 10/26/20 00:42 10/26/20 00:47 Temperature Temperature Source Pulse Rate 98 97 87 Blood Pressure 127/73 H 131/80 H BP Systolic 127 131 BP Diastolic 73 80 Pulse Ox 99 99 10/26/20 00:49 10/26/20 00:51 10/26/20 00:52 Temperature Temperature Source Pulse Rate 93 100 Blood Pressure 122/70 H 117/66 BP Systolic 122 117 BP Diastolic 70 66 Pulse Ox 99 10/26/20 00:53 10/26/20 00:57 10/26/20 00:58 Temperature Temperature Source Pulse Rate 96 98 99 Blood Pressure 110/66 109/70 BP Systolic 110 109 BP Diastolic 66 70 Pulse Ox 99 10/26/20 01:02 10/26/20 01:03 10/26/20 01:07 Temperature Temperature Source Pulse Rate 99 Blood Pressure 118/66 BP Systolic 118 BP Diastolic 66 Pulse Ox 99 99 10/26/20 01:08 10/26/20 01:12 10/26/20 01:13 Temperature Temperature Source Pulse Rate 96 102 H Blood Pressure 107/65 115/71 BP Systolic 107 115 BP Diastolic 65 71 Pulse Ox 99 10/26/20 01:17 10/26/20 01:22 10/26/20 01:27 Temperature Temperature Source Pulse Rate 97 94 95 Blood Pressure 107/66 BP Systolic 107 BP Diastolic 66 Pulse Ox 98 100 99 10/26/20 01:32 10/26/20 01:37 10/26/20 01:42 Temperature Temperature Source Pulse Rate 90 93 97 Blood Pressure BP Systolic BP Diastolic Pulse Ox 99 98 100 Weight Weight: 180 lb 3.2 oz Body Mass Index (BMI) 30.9 Physical Exam Const alert, oriented x3 and healthy appearing Constitutional Narrative: uncomfortable with contractions HEENT normocephalic and moist oral mucous membranes Head and Scalp: atraumatic Neck full ROM, no lymphadenopathy, supple and thyroid normal General: trachea midline Thyroid: thyroid normal Lymph Lymphatic: no lymphadenopathy noted Chest inspection of chest normal Resp normal respiratory effort Cardio regular rate GI normal to inspection, nondistended, normoactive bowel sounds, soft to palpation and non-tender Inspection: gravid external exam normal Bimanual Exam - Vag & Uterus: uterus non-tender Manual OB Exam: estimated gestational size appropriate, presentation cephalic, dilated, effaced and station Extremity normal to inspection General Extremity: Negative for edema Skin no rashes or lesions noted Neuro deep tendon reflexes 2+ bilaterally Motor Exam: strength 5/5 throughout and clonus absent Psych mental status grossly normal Labs Labs Labs: Blood Type A POSITIVE Antibody Screen NEGATIVE Hct 31.6 % (37-47) L Hgb 10.0 g/dL (12.0-15.0) L Obstetrics US Rubella IgG Antibody Reactive (Nonreactive) Hep Bs Antigen Non-Reactive (Nonreactive) Neisseria gonorrhoeae DNA (ASHLIE) Negative (Negative) HIV 1&2 Antibody Non-Reactive (Nonreactive) C.trachomatis DNA (PCR) Negative (Negative) Glucose 1 Hr 50 gm 127 mg/dL (70-140) Group B Strep DNA POSITIVE (Negative) H Rhogam given: No Miscellaneous Test Assessment & Plan (1) 37 weeks gestation of : COMMENT: electronic covid test ordered 10/04/20 (scheduled 10/21/20 at 1340) (2) Anemia affecting : COMMENT: iron added (3) History of tetanus, diphtheria, and acellular pertussis booster vaccination (Tdap): COMMENT: 08/04/20 (4) Supervision of other normal : COMMENT: PRR CHRISTIE 10/23/20 boy! Thaddeus PC: Jomar (Boy) BF: Lloyd (5) : QUALIFIERS: Weeks of gestation: 39 weeks Qualified Code(s): Z3A.39 - 39 weeks gestation of COMMENT: genetic- LR boy, carrier- neg and NTD, anatomy nl. GBS negative (6) Anxiety and depression: COMMENT: prozac. encouraged counseling. 08/04 stable (7) Active labor at term: PLAN: Patient presents IAL, plan expectant management for , pitocin/AROM if needed. Pain management: Plans epidural. GBS negative. Management of any complications: None I have reviewed the [facility] and made any clinically relevant updates.
[2020-10-26] MEDS: Lactated Ringers 500 ML 999 ML IV (03:18)
[2020-10-26] MEDS: Oxytocin 30 units/NS 500 ml 30 UNITS/500 ML IV.SOLN 334 UNITS IV (04:04)
[2020-10-26] MEDS: Ondansetron 4 MG/2 ML Vial IV ×2 (04:35)
[2020-10-27 00:02] VITALS: BP 120/67; PULSE 95
[2020-10-27 00:08] VITALS: BP 120/67; PULSE 95; RESP 16; TEMP 36.9
[2020-10-27 04:10] VITALS: BP 112/68; PULSE 81; RESP 16; TEMP 36.1
[2020-10-27 04:11] VITALS: BP 112/68; PULSE 81
[2020-10-27 07:28] VITALS: BP 114/79; PULSE 80
[2020-10-27 07:30] VITALS: BP 114/79; PULSE 80; RESP 16; TEMP 37.1
--- NOTE | 2020-10-27 08:12 | EX.PCM.OBRPT ---
Maternal Data Information CHRISTIE Calculator Estimated Delivery Date Method Current Current Estimate 10/23/20 Manual 40w 4d Vaginal Delivery Operative Information Date of Procedure: 10/27/20 Pre-Operative Diagnosis: IAL Post-Operative Diagnosis: same Surgery / Procedure Performed: Spontaneous Vaginal Delivery Type of Anesthesia: Epidural Special Medications: none Estimated Blood Loss: 100 Fluids Replaced: crystalloid Findings Description of Procedure: Patient began pushing and delivered the head in the FERNANDO presentation. The head was delivered atraumatically tight nuchal cord x1 was identified and the cord was clamped and cut and the infant delivered through.. The anterior and posterior shoulders delivered without complication followed by the rest of the and the was placed on the maternal abdomen. Delayed cord clamping was employed for approximately 60 seconds. Cord was clamped and cut and gentle traction was applied to the cord and the placenta delivered spontaneously immediately following it was noted to be intact with three-vessel cord. The perineum and vagina were inspected and noted to have no laceration. EBL was 100 cc. Patient and infant tolerated delivery well. Presentation: FERNANDO Amniotic Membrane Rupture Type: Artificial Amniotic Fluid Description: Clear Placental Delivery Description: Spontaneous Placenta Disposition: [facility] Cord Vessel Description: 3 Vessels Cord Entanglement: None Delayed Cord Clamping: Yes Post Vaginal Delivery Medications Given After Delivery: IV Pitocin Episiotomy Description: None Laceration: None Complication Complications: None Procedures Urinary/Genital [id number]: 20075 Vaginal Delivery+ Care([facility])
--- NOTE | 2020-10-27 08:13 | PCM.DC ---
Discharge Instructions Diet Discharge Diet: No restrictions Activity Discharge Activity: Return to Normal Activity, May Not Drive (while taking narcotic pain medications.) and May Shower May resume sexual activity in: 4-6 weeks Dressing / Incision Call your doctor if your incision/area has: Continuous Slow Oozing, Sudden Increased Bleeding, Increased Pain/ Swelling, Increased Redness and Foul Smelling Discharge Follow Up Care Please Follow Up With: Cathy Wakefield MD When: Call [phone] to make an appointment with your doctor in 6 weeks. If you had elevated blood pressure or 4th degree laceration, you will need to be seen in 2 weeks. Test Results: Test results from this visit will be discussed in further detail at your follow-up appointment, if applicable. Discharge Plan Admission Admit Date/Time: 10/25/20 23:15 Primary Reason for Your Visit: suzette Attending Provider: Cathy Wakefield Primary Care Provider: Care Physician,No Primary Discharge Orders/Prescriptions Prescriptions: No Action PNV-DHA 27 mg iron-1 mg -300 mg capsule 1 cap PO DAILY RF: 0 Referrals / Follow Up: Cathy Wakefield MD [STAFF PHYSICIAN] - Care Physician,No Primary [Primary Care Provider] - Disposition Disposition (needs filled in before D/C Order can be placed): Home, Self Care
--- NOTE | 2020-10-27 08:14 | PCM.PN.OB ---
Subjective Subjective Patient doing well without complaints. Tolerating PO. Ambulating and voiding without difficulty. feeding well. Denies chest pain, shortness of breath, calf pain/swelling, fevers, chills, lightheadedness. Objective Data Objective Data Vital Signs: Vital Signs Temp Pulse Resp BP Pulse Ox 98.7 F 80 16 114/79 100 10/27/20 07:30 10/27/20 07:30 10/27/20 07:30 10/27/20 07:30 10/26/20 04:22 Oxygen Delivery Method Room Air Weight: 180 lb 3.2 oz Body Mass Index (BMI) 30.9 Intake & Output: Intake and Output for Last 24 Hours 10/25/20 10/26/20 10/27/20 23:59 23:59 23:59 Intake Total 1690.83 / 1690.83 Output Total 1200 / 1200 Balance 490.83 / 490.83 Lab / Micro Data Result Diagrams: 10/25/20 23:35 ROS Constitutional Constitutional: Reports systems reviewed and no addt'l complaints, except as documented Cardiovascular Cardiovascular: Reports systems reviewed and no addt'l complaints, except as documented Respiratory/Chest Respiratory/Chest: Reports systems reviewed and no addt'l complaints, except as documented Gastrointestinal Gastrointestinal: Reports systems reviewed and no addt'l complaints, except as documented Physical Exam Const alert, oriented x3 and no apparent distress HEENT Head and Scalp: atraumatic Resp normal respiratory effort GI soft to palpation and non-tender Bimanual Exam - Vag & Uterus: uterus non-tender Uterus Palpation: uterus fundus firm (below Umbilicus) Assessment & Plan (1) Vaginal delivery: COMMENT: 39 Thaddeus boy PLAN: s/p PPD # 1 1. routine post delivery care 2. breast feeding- support given 3. rh positive 4. rubella immune
== END 2020-10-27 08:51 | disposition home or self-care (01) | DRG 560 ==
LOC: WPOUT 23:17 → WP 23:17
PROVIDERS: Admitting Provider Obstetrics & Gynecology; Visit Provider Obstetrics & Gynecology
DX: O69.1XX0 Labor and delivery complicated by cord around neck, with compression, not applicable or unspecified (principal); O99.344 Other mental disorders complicating childbirth; F32.9 Major depressive disorder, single episode, unspecified; F41.9 Anxiety disorder, unspecified; Z79.899 Other long term (current) drug therapy; Z87.891 Personal history of nicotine dependence; Z3A.37 37 weeks gestation of pregnancy; Z37.0 Single live birth
CPT/HCPCS: 59025; 59050; 84112; 85025; 86850; 86900; 86901; 99218; J7120; A4216; G0378; J2405

== ENCOUNTER 2020-11-01 17:13 | Emergency (ER) | payer MEDICAID, SELFPAY ==
[2020-11-01 17:14] VITALS: BP 126/82; PULSE 78; RESP 15; TEMP 37.3; O2SAT 97; BMI 27.1
--- NOTE | 2020-11-01 17:58 | US_ITS ---
INDICATION: pelvic pain EXAMINATION: US Transvaginal Non-OB TECHNIQUE: Transvaginal (for optimal evaluation of the adnexa) pelvic ultrasound was performed. Grayscale, spectral waveform, and color flow Doppler evaluation of the adnexa. COMPARISON: 10/23/2018. FINDINGS: UTERUS: Anteverted. The uterus measures 14.6 x 11.2 x 6.6 cm. There is no uterine mass. The endometrial stripe measures 9 mm in AP diameter which is within normal limits. Nabothian cysts. RIGHT OVARY: 2.4 x 1.7 x 1.7 cm. Non-enlarged, normal echogenicity. There is normal arterial inflow and venous outflow present in the right ovary. LEFT OVARY: 3.5 x 1.9 x 1.2 cm. Non-enlarged, normal echogenicity. There is normal arterial inflow and venous outflow present in the left ovary. FREE FLUID: None. US/Transvaginal Non- IMPRESSION: Normal pelvic ultrasound. Electronically Signed: Josh Kumar MD at 19:29 EDT Tel , Service support ,
[2020-11-01] MEDS: Ondansetron 4 MG/2 ML Vial IV (18:16)
[2020-11-01] MEDS: 0.9% Normal Saline 1,000 ML 1000 ML IV (18:16)
[2020-11-01 18:19] LABS: Absolute Lymphocyte Count 0.83 X10^3/uL (0.83-4.51); Absolute Neutrophil Count 5.9 X10^3/uL (2.0-7.7); Basophil# 0.04 X10^3/uL; Basophil% 0.5 % (0-1); Eosinophil# 0.14 X10^3/uL; Eosinophils% 1.9 % (0-5); Hematocrit 36.3 % (37-47); Hemoglobin 11.4 g/dL (12.0-15.0); Lymphocyte # 0.83 X10^3/ul (0.83-4.51); Mean Corp Hgb Conc 31.4 g/dL (32-36); Mean Corpuscular Hgb 24.9 pg (27.0-32.0); Mean Corpuscular Volume 79.4 fL (81-99); Mean Platelet Vol. 10.5 fl (6.2-12.0); Monocyte# 0.66 X10^3/uL; Monocyte% 8.7 % (0-10); NRBC Flagged by Analyzer 0 % (0-5); Neutrophil # 5.85 X10^3/uL (2.7-7.7); Neutrophil % 77.4 % (47-70); Platelet Count 195 K/mm3 (150-450); RBC Distribution Width CV 16.1 % (11.6-14.6); RBC Distribution Width SD 45.9 fl (35.1-43.9); Red Blood Count 4.57 M/mm3 (4.2-5.4); White Blood Count 7.6 K/mm3 (4.4-11.0)
[2020-11-01 18:26] LABS: Mucous, Urine 0 SEEN /hpf (<or=2+); Squamous Epithelial Cells - UA 0 SEEN /hpf (5-10)
[2020-11-01 18:30] LABS: Color, Urine Yellow (Yellow); Glucose, Dipstick Normal (Normal); Ketone-Dipstick Negative (Negative); Leukocyte Esterase-Dipstick 500 /ul (Negative); Nitrite-Dipstick Negative (Negative); Occult Blood-Urine 250 /ul (Negative); Protein-Dipstick Negative (Negative); Urine Bilirubin Dipstick Negative (Negative); Urine Clarity Clear (Clear); Urine Urobilinogen Normal (Normal)
--- NOTE | 2020-11-01 18:31 | ED.VIS.FEGU ---
HPI HPI - Female History of Present Illness Chief Complaint: Vag Bleeding Narrative Narrative: Patient presenting with vaginal spotting 6 days post post delivery. She is A0. Patient states that she has some mild cramping as well. Today she passed a large piece of tissue which did not appear to be clot. Patient states that she called her TELECOMMUNICATION TOWER TECHNICIAN who stated that she might want to do an ultrasound. Following that call patient states she felt much worse and came to the ER for evaluation. She denies fever. She does express that she has nausea without vomiting. PFSH PFS Medical History Anxiety and depression Fatigue Pilonidal cyst Home Medications multivitamin no.47-iron fum 27 mg-folate no.1 1 mg-dha 300 mg capsule 1 cap PO DAILY 03/08/20 [History Last Taken 10/23/20] Allergy/AdvReac Type Severity Reaction Status Date / Time No Known Allergies Allergy Verified 11/01/20 17:18 Family History Father Arthritis Diabetes Hypertension High cholesterol Mother Arthritis Hypertension Lupus Surgical History History of laparoscopy Social History Smoking Status: Former smoker quit date: 07/16/17 second hand exposure: No alcohol intake: never substance use type: does not use caffeine: Yes what type of physical activity do you participate in: none seatbelt use: always do you feel safe at home: Yes 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 history: Lloyd boyfriend- works on [employer] ROS ROS ED Constitutional Constitutional ED: Denies fever(s) or subjective Eyes Eyes: Denies blurry vision or diplopia ENT ENT ED: Denies rhinorrhea or sore throat Cardiovascular Cardiovascular: Denies chest pain or palpitations Respiratory/Chest Respiratory/Chest: Denies cough or dyspnea Gastrointestinal Gastrointestinal: Reports abdominal pain and nausea; Denies diarrhea or vomiting Genitourinary Genitourinary ED: Reports other Details: Vaginal spotting and tissue passage ; Denies dysuria or hematuria Musculoskeletal Musculoskeletal: Denies arthralgias or myalgias Integumentary Denies abscess or rash Neurologic Neurologic: Denies headache(s) or weakness Psychiatric Psychiatric: Denies anxiety or depression EXAM Physical Exam Const Vital Signs: 11/01/20 17:14 11/01/20 19:59 Temperature 99.2 F H Temperature Source Temporal Pulse Rate 78 80 Respiratory Rate 15 18 Blood Pressure 126/82 H 115/84 H Blood Pressure Mean 96 Pulse Ox 97 99 Oxygen Delivery Method Room Air Positive well nourished HEENT Reports moist mucous membranes Negative for trauma Eyes PERRL General Eye ED: Negative for pale conjunctiva Resp normal respiratory effort and clear to auscultation bilaterally Cardio regular rate and regular rhythm GI GI Narrative: Mild pelvic tenderness. Abdomen nonperitoneal. No adnexal tenderness. Neuro oriented x3 Sensorium / Orientation: alert Psych mental status grossly normal Skin no rashes or lesions noted and no wounds MDM MDM MDM Narrative Medical decision making narrative: Patient presenting with pelvic pain with nausea and vaginal spotting as well as passing tissue. Patient did call her TELECOMMUNICATION TOWER TECHNICIAN earlier who was possibly to do an ultrasound in the future however patient states she felt much worse and came to the ER. When she arrived she did show me a picture of what she had passed and it looks like a large piece of tissue. I did order a transvaginal ultrasound and prior to her going the sterile processing tech asked to be if Dr. Wakefield had approved this because she did not want to do an ultrasound less than 6 weeks after delivering. I did speak with Dr. Wakefield, who stated of course she wanted an ultrasound and this was performed. Patient's blood work is unremarkable. She does not have a white blood cell count elevation and her hemoglobin is actually elevated over her previous. Renal function and electrolytes are normal. Urinalysis shows 500 leukocyte esterase and 5-10 white blood cells there is rare bacteria seen however it appears that there is blood contamination and likely contamination from her vaginal bleeding. She is not having any urinary complaints currently. Transvaginal ultrasound shows nothing acute. Her ovaries have good vascular flow. There is no retained products of conception. Patient counseled on this finding. I did also speak with Dr. Wakefield regarding the results. Patient will follow up with her as needed. Impression: 1. vaginal bleeding 2. Past products of conception Lab Data Attestation: I reviewed the patient's lab results. Labs: Laboratory Results - last 24 hr 11/01/20 11/01/20 11/01/20 18:09 18:09 18:20 WBC 7.6 RBC 4.57 Hgb 11.4 L Hct 36.3 L MCV 79.4 L MCH 24.9 L MCHC 31.4 L RDW Std Deviation 45.9 H RDW Coeff of Zi 16.1 H Plt Count 195 MPV 10.5 Immature Gran % (Auto) 0.500 Neut % (Auto) 77.4 H Lymph % (Auto) 11.0 L [place] % (Auto) 8.7 Eos % (Auto) 1.9 Baso % (Auto) 0.5 Absolute Neuts (auto) 5.9 Absolute Lymphs (auto) 0.83 Nucleated RBC % 0 Sodium 140 Potassium 3.8 Chloride 108 H Carbon Dioxide 25.0 Anion Gap 7 BUN 9 Creatinine 0.53 L Estim Creat Clear Calc 144.99 Est GFR (MDRD) Af Amer 188 Est GFR (MDRD) Non-Af 155 BUN/Creatinine Ratio 17.1 Glucose 79 Calcium 8.6 Total Bilirubin 0.20 AST 23 ALT 38 Alkaline Phosphatase 166 H Total Protein 7.0 Albumin 2.9 L Globulin 4.1 Albumin/Globulin Ratio 0.7 L Urine Color Yellow Urine Clarity Clear Urine pH 7.0 Ur Specific [place] 1.010 Urine Protein Negative Urine Glucose (UA) Normal Urine Ketones Negative Urine Occult Blood 250 H Urine Nitrite Negative Urine Bilirubin Negative Urine Urobilinogen Normal Ur Leukocyte Esterase 500 H Urine RBC 0-5 SEEN Urine WBC 5-10 SEEN Ur Squamous Epith Cells 0 SEEN Urine Bacteria RARE Urine Mucus 0 SEEN Radiography Diagnostic Testing: Radiology Impression Transvaginal US 11/01/20 17:58 IMPRESSION: Normal pelvic ultrasound. Electronically Signed: Josh Kumar MD at 19:29 EDT Tel , Service support , Discharge Plan Triage Chief Complaint: Vag Bleeding ED Provider: Samir Townsend Dx/Rx/DC Orders Instructions: Understanding Uterine Bleeding Prescriptions: No Action PNV-DHA 27 mg iron-1 mg -300 mg capsule 1 cap PO DAILY RF: 0 Primary Care Provider: Care Physician,No Primary Referrals: Cathy Wakefield MD [STAFF PHYSICIAN] - As Needed Care Physician,No Primary [Primary Care Provider] - Disposition Disposition: Home, Self Care Discharge Date/Time: 11/01/20 20:01
[2020-11-01 18:37] LABS: ALB/GLOB Ratio 0.7 RATIO (0.9-2.4); AST(SGOT) 23 U/L (15-37); Alanine Aminotransfer ALT/SGPT 38 U/L (13-56); Albumin, Serum 2.9 g/dL (3.2-5.0); Alkaline Phosphatase 166 U/L (45-117); Anion Gap 7 (5-15); BUN 9 mg/dL (7-18); BUN/Creat Ratio 17.1 RATIO (10-20); Calcium,Total 8.6 mg/dL (8.5-10.1); Chloride 108 mmol/L (98-107); Creatinine, Serum 0.53 mg/dL (0.55-1.02); EST Glomerular Filtration Rate 155 mL/min (>60); Est Glom Filt Rate - Afr Amer 188 mL/min (>60); Estimated Creatinine Clearance 144.99 ml/min; Globulin 4.1 g/dL (2.2-4.2); Glucose 79 mg/dL (74-106); Potassium 3.8 mmol/L (3.5-5.1); Sodium Level 140 mmol/L (136-145)
[2020-11-01 18:38] LABS: Bacteria RARE /hpf (None Seen); Red Blood Cells-Urine 0-5 SEEN /hpf (0-5); White Blood Cells 5-10 SEEN /hpf (0-5)
[2020-11-01 19:59] VITALS: BP 115/84; PULSE 80; RESP 18; O2SAT 99
== END 2020-11-01 20:01 | disposition home or self-care (01) ==
PROVIDERS: Emergency Provider Student in an Organized Health Care Education/Training Program
DX: O72.2 Delayed and secondary postpartum hemorrhage (principal); Z87.891 Personal history of nicotine dependence
CPT/HCPCS: 76830; 80053; 81001; 85025; 93976; 96361; 96374; 99283; J7030; A4216; J2405

== ENCOUNTER → 2021-01-12 | Outpatient (CLI) | payer MEDICAID, SELFPAY ==
[2021-01-17 03:07] LABS: Chlamydia By Nucleic Acid AMP Negative (Negative)
[2021-01-17 08:03] LABS: Gonococcus By Nucleic Acid AMP Negative (Negative)
[2021-01-17 10:33] LABS: HPV Reflexed? NOT INDICATED
== END | disposition home or self-care (01) ==
LOC: LABSPEC 14:54
PROVIDERS: Referring Provider Nurse Practitioner Women's Health; Visit Provider Nurse Practitioner Women's Health
DX: Z12.4 Encounter for screening for malignant neoplasm of cervix (principal); Z11.3 Encounter for screening for infections with a predominantly sexual mode of transmission
CPT/HCPCS: 87491; 87591; 88175; G0145

== ENCOUNTER 2021-04-06 05:54 | Emergency (ER) | payer MEDICAID, SELFPAY ==
[2021-04-06 05:55] VITALS: BP 121/73; PULSE 73; RESP 16; TEMP 37.6; O2SAT 98; BMI 24.5
--- NOTE | 2021-04-06 06:10 | RAD_ITS ---
STUDY: X-RAY CHEST REASON FOR EXAM: Female, 20 years old. R chest pain, cough TECHNIQUE: Portable, upright AP chest radiograph COMPARISON: None. FINDINGS: The lungs are clear and expanded. There is no demonstrated pleural abnormality. Normal size heart. Normal mediastinum and mack. Normal visualized pulmonary arteries. Normal visualized aortic arch and descending thoracic aorta. There is no demonstrated abnormality of the visualized soft tissue structures of the upper abdomen. RAD/Chest 1 View (Portable) IMPRESSION: No acute abnormal cardiopulmonary finding. Electronically Signed: Pilo Headley MD at 6:37 EST Tel , Service support ,
[2021-04-06] MEDS: Ketorolac 30 MG/ML Syringe IV (06:19)
[2021-04-06 06:38] LABS: D-Dimer Quantitative (DVT/PE) 0.44 FEU/ug/m (0.27-0.49)
--- NOTE | 2021-04-06 06:39 | EDS_ITS ---
HPI History of Present Illness Chief Complaint: Chest Other Informant: patient Onset/Context/Timing Onset: Weeks (1) Activity at onset: gradual and onset Timing: Intermittent Quality: Positive for Aching Location: Right Chest Current Severity: Moderate Maximum Severity: Moderate Worsened By: Movement of Arm, Movement of Torso and Breathing; Not Worsened By Palpation Relieved By: Rest and Remaining Still Associated Symptoms: Positive for Cough; Negative for Nausea, Vomiting, Diaphoresis, Dyspnea, Fever, Lightheadedness, Acid Reflux and Palpitations Narrative Narrative: For the last week or so, patient has been having off-and-on pain in her right mid chest, behind her breast, it has become worse and now is more persistent. It is pleuritic, also worse with movement. She denies dyspnea. She denies any long travel lately, leg pain, swelling, history of DVT or PE. She has had a cough lately. She denies any fevers or chills. She has had some diarrhea. She has not been vaccinated against Covid nor has she had a that she knows of. [facility] Medical History Anxiety and depression Fatigue Pilonidal cyst Home Medications multivitamin no.47-iron fum 27 mg-folate no.1 1 mg-dha 300 mg capsule 1 cap PO DAILY 03/08/20 [History Last Taken 10/23/20] citalopram 20 mg tablet 20 mg PO DAILY #90 tab 01/12/21 [Rx Last Taken Unknown] naproxen 500 mg PO BID PRN #20 tab 04/06/21 [Rx Last Taken Unknown] Allergy/AdvReac Type Severity Reaction Status Date / Time No Known Allergies Allergy Verified 04/06/21 05:57 Family History Father Arthritis Diabetes Hypertension High cholesterol Mother Arthritis Hypertension Lupus Surgical History History of laparoscopy Social History Smoking Status: Former smoker quit date: 07/16/17 second hand exposure: No alcohol intake: never substance use type: does not use caffeine: Yes what type of physical activity do you participate in: none seatbelt use: always do you feel safe at home: Yes 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 ROS ED Constitutional Constitutional ED: Denies chills or fever(s) Eyes Eyes: Denies change in vision or diplopia ENT ENT ED: Denies rhinorrhea or sore throat Cardiovascular Cardiovascular: Reports chest pain; Denies palpitations Respiratory/Chest Respiratory/Chest: Reports cough; Denies dyspnea Gastrointestinal Gastrointestinal: Reports diarrhea; Denies abdominal pain, nausea or vomiting Genitourinary Genitourinary ED: Denies dysuria or hematuria Musculoskeletal Musculoskeletal: Denies back pain or neck pain Integumentary Denies abscess or rash Neurologic Neurologic: Denies headache(s), paresthesias or weakness Psychiatric Psychiatric: Denies anxiety or suicidal thoughts EXAM Physical Exam Const Vital Signs: 04/06/21 05:55 04/06/21 05:57 Temperature 99.6 F H Temperature Source Temporal Pulse Rate 73 Respiratory Rate 16 Respiratory Effort Normal Respiratory Pattern Normal Blood Pressure 121/73 H Blood Pressure Mean 89 Pulse Ox 98 Oxygen Delivery Method Room Air Positive well nourished and well developed General Appearance ED: well developed and NAD HEENT Reports moist mucous membranes normocephalic and atraumatic Eyes PERRL and EOMs intact bilaterally Neck full ROM and supple Chest Wall inspection of chest normal and palpation of chest normal Chest Narrative: No reproducible tenderness in the area of concern right chest inframammary/retromammary Resp normal respiratory effort and clear to auscultation bilaterally Cardio regular rate, regular rhythm and no murmurs GI non-tender and non-distended Auscultation: normoactive bowel sounds Palpation: soft Back/Spine no CVA tenderness General Back: other FROM Extremity normal to inspection General Extremety ED: Negative for edema, pulses abnormal or tenderness General Extremity: Negative for edema or pulses abnormal Neuro oriented x3, CN's II-XII intact bilaterally and no sensory deficits noted Sensorium / Orientation: awake and alert Motor Exam: strength 5/5 throughout Skin no rashes or lesions noted and no wounds MDM MDM MDM Narrative Medical decision making narrative: D-dimer is within normal limits, chest x-ray is unremarkable. Covid is negative. Patient was given Toradol for pain. This helped some. Consistent with pleurisy, especially in context of cough and low- grade fever that is probably all viral. Patient given appropriate instructions and prescription for Naprosyn, we discussed reasons to return she is comfortable with that plan. Lab Data Attestation: I reviewed the patient's lab results. Labs: Laboratory Results - last 24 hr 04/06/21 06:20 D-Dimer Quant (PE/DVT) 0.44 Radiography Diagnostic Testing: Clinical Impression(s) from Imaging Studies Chest X-Ray 04/06/21 06:10 IMPRESSION: No acute abnormal cardiopulmonary finding. Electronically Signed: Pilo Headley MD at 6:37 EST Tel , Service support , Discharge Plan Triage Chief Complaint: Chest Other ED Provider: Delfin Bashir Dx/Rx/DC Orders Clinical Impression: Pleurisy, Viral URI with cough Instructions: ED Pleurisy Prescriptions: New naproxen 500 MG tablet 500 mg PO BID PRN Qty: 20 RF: 0 No Action PNV-DHA 27 mg iron-1 mg -300 mg capsule 1 cap PO DAILY RF: 0 citalopram [Celexa] 20 mg tablet 20 mg PO DAILY Qty: 90 RF: 3 Primary Care Provider: Deysi Soriano Referrals: Deysi Soriano MD [Primary Care Provider] - 1 Week if not improving Disposition Disposition: Home, Self Care
[2021-04-06 07:16] VITALS: BP 111/67; PULSE 71; RESP 16; O2SAT 97
== END 2021-04-06 07:17 | disposition home or self-care (01) ==
PROVIDERS: Emergency Provider Emergency Medicine; PCP Pediatrics
DX: R09.1 Pleurisy (principal); J06.9 Acute upper respiratory infection, unspecified; Z20.822 Contact with and (suspected) exposure to COVID-19; F32.A Depression, unspecified; F41.9 Anxiety disorder, unspecified; Z79.899 Other long term (current) drug therapy; Z87.891 Personal history of nicotine dependence
CPT/HCPCS: 71045; 85379; 87426; 96374; 99282

== ENCOUNTER 2021-04-11 13:00 | Emergency (ER) | payer MEDICAID, SELFPAY ==
[2021-04-11 13:01] VITALS: BP 114/78; PULSE 74; RESP 18; TEMP 37.2; O2SAT 100; BMI 23.1
--- NOTE | 2021-04-11 13:10 | RAD_ITS ---
STUDY: X-RAY CHEST REASON FOR EXAM: Female, 20 years old. PAIN WITH DEEP BREATH -- ED HALLWAY TECHNIQUE: Single AP portable view of the chest. COMPARISON: Comparison is made with prior study dated 04/06/2021. FINDINGS: The lungs are clear and expanded. There is no demonstrated pleural abnormality. Normal size heart. Normal mediastinum and mack. Normal visualized pulmonary arteries. Normal visualized aortic arch and descending thoracic aorta. Normal visualized thoracic spine. Normal visualized ribs, clavicles, and shoulders. There is no demonstrated abnormality of the visualized soft tissue structures of the upper abdomen. RAD/Chest 1 View IMPRESSION: Normal x-ray examination of the chest. Electronically Signed: Santos Burnett MD at 15:41 EST , Service support ,
--- NOTE | 2021-04-11 15:08 | EDS_ITS ---
HPI History of Present Illness Chief Complaint: Chest Other Informant: patient Onset/Context/Timing Onset: Weeks Context: Gradual Onset Current Severity: Mild Maximum Severity: Moderate Narrative Narrative: Patient returns to the ER with continued right chest pain. Patient was seen in the ER last week with a 1 week history of intermittent sharp right- sided chest pain just beneath her right breast. Pain is worse with a deep breath. She had a recent cough that is now improving. No fever or chills. Last week her D-dimer was negative and her chest x-ray was clear. She was started on naproxen for pleurisy. Patient states in spite of taking that she continues to worsen. [facility] Medical History Anxiety and depression Fatigue Pilonidal cyst Home Medications citalopram 20 mg tablet 20 mg PO DAILY #90 tab 01/12/21 [Rx Last Taken Unknown] omeprazole magnesium [Prilosec OTC] 20 mg PO DAILY #14 tab 04/11/21 [Rx Last Taken Unknown] prednisone 40 mg PO DAILY #8 tab 04/11/21 [Rx Last Taken Unknown] Allergy/AdvReac Type Severity Reaction Status Date / Time No Known Allergies Allergy Verified 04/11/21 13:01 Family History Father Arthritis Diabetes Hypertension High cholesterol Mother Arthritis Hypertension Lupus Surgical History History of laparoscopy Social History Smoking Status: Former smoker quit date: 07/16/17 second hand exposure: No alcohol intake: never substance use type: does not use caffeine: Yes what type of physical activity do you participate in: none seatbelt use: always do you feel safe at home: Yes 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 ROS ED Constitutional Constitutional ED: Denies chills or fever(s) Eyes Eyes: Denies change in vision ENT ENT ED: Denies sore throat Cardiovascular Cardiovascular: Reports chest pain Respiratory/Chest Respiratory/Chest: Denies cough or dyspnea Gastrointestinal Gastrointestinal: Denies abdominal pain, diarrhea, nausea or vomiting Genitourinary Genitourinary ED: Denies dysuria Musculoskeletal Musculoskeletal: Denies back pain Integumentary Denies rash Neurologic Neurologic: Denies headache(s) or weakness Allergic/Immunologic Allergic/Immunologic ED: Denies urticaria EXAM Physical Exam Const Vital Signs: 04/11/21 13:01 04/11/21 16:03 04/11/21 16:06 Temperature 99.0 F Temperature Source Temporal Pulse Rate 74 Respiratory Rate 18 18 Respiratory Effort Normal Non-Labored Blood Pressure 114/78 Blood Pressure Mean 90 Pulse Ox 100 Oxygen Delivery Method Room Air Positive well nourished and well developed General Appearance ED: well developed HEENT Reports moist mucous membranes Eyes PERRL and EOMs intact bilaterally Neck supple Chest Wall inspection of chest normal and palpation of chest normal Resp normal respiratory effort and clear to auscultation bilaterally Cardio regular rate and regular rhythm GI normal to inspection, nondistended, normoactive bowel sounds and non-tender Palpation: soft Extremity normal to inspection Neuro oriented x3 Sensorium / Orientation: alert Skin no rashes or lesions noted MDM MDM MDM Narrative Medical decision making narrative: EKG, chest x-ray, D-dimer obtained. Lab Data Attestation: I reviewed the patient's lab results. Labs: Laboratory Results - last 24 hr 04/11/21 15:25 D-Dimer Quant (PE/DVT) 1.68 H* Radiography Chest X-Ray - ED: 1 View, Read by ED Physician, Normal, Heart, Lungs and Mediastinum Diagnostic Testing: Clinical Impression(s) from Imaging Studies Chest X-Ray 04/11/21 13:10 IMPRESSION: Normal x-ray examination of the chest. Electronically Signed: Santos Burnett MD at 15:41 EST , Service support , Chest CTA 04/11/21 16:21 IMPRESSION: Negative CTA chest. Electronically Signed: Marcio Hayes MD at 17:00 EST , Service support , EKG Initial EKG: Interpretation: Sinus Bradycardia (Sinus bradycardia at 49 bpm. No acute ischemia.) Treatment and Re-Evaluation Comments:: Patient's D-dimer is elevated at 1.68. In light of the CTA of the chest is obtained and negative. Test results discussed with the patient. She has been on anti-inflammatories without improvement. We will start her on prednisone. I will also write her for Prilosec to help protect her stomach. Discharge Plan Triage Chief Complaint: Chest Other ED Provider: Palmira Henao Dx/Rx/DC Orders Clinical Impression: Pleurisy Instructions: ED Pleurisy Prescriptions: New prednisone 20 mg tablet 40 mg PO DAILY Qty: 8 RF: 0 omeprazole magnesium [Prilosec OTC] 20 mg tablet,delayed release (DR/EC) 20 mg PO DAILY Qty: 14 RF: 0 No Action citalopram [Celexa] 20 mg tablet 20 mg PO DAILY Qty: 90 RF: 3 Primary Care Provider: Deysi Soriano Referrals: Deysi Soriano MD [Primary Care Provider] - 1 Week if not improving Disposition Disposition: Home, Self Care
--- NOTE | 2021-04-11 15:08 | EKG12_ITS ---
Test Reason : CHEST OTHER Blood Pressure : / mmHG Vent. Rate : 049 BPM Atrial Rate : 049 BPM P-R Int : 166 ms QRS Dur : 080 ms QT Int : 444 ms P-R-T Axes : 036 068 058 degrees QTc Int : 401 ms Sinus bradycardia with sinus arrhythmia Otherwise normal ECG Confirmed by ADELIA BULLARD, DOE ([id number]), pictures editor ALLISON BARRIOS ([id number]) on 04/13/2021 12:15:34 PM Referred By: NANCY Confirmed By:DOE DELVALLE MD
[2021-04-11 16:03] VITALS: RESP 18
--- NOTE | 2021-04-11 16:21 | CT_ITS ---
EXAM: CT ANGIOGRAPHY CHEST WITHOUT AND WITH INTRAVENOUS CONTRAST CLINICAL INDICATION: chest pain, elevated d-dimer Technologist Notes Right sided chest wall pain worse with deep breath starting 2 wks ago. TECHNIQUE: Helically acquired angiography images were obtained of the chest without and with intravenous contrast. This CT exam was performed using one or more of the following dose reduction techniques: automated exposure control, adjustment of the mA and/or kV according to patient size, and/or use of iterative reconstruction technique. This report was created using [employer] report generation technology. MIP reconstructed images were created and reviewed. CONTRAST: IV 75mL [id number] COMPARISON: None. FINDINGS: PULMONARY ARTERIES: Unremarkable. Normal in caliber. No evidence of pulmonary embolism. AORTA: Unremarkable. Normal in caliber. No evidence of dissection. GREAT VESSELS OF AORTIC ARCH: Unremarkable. Normal in caliber. No evidence of dissection. LUNGS AND PLEURAL SPACES: Unremarkable. No mass. No consolidation or edema. No pleural effusion or thickening. No pneumothorax. HEART: Unremarkable. Heart size is normal. No pericardial effusion. No signs of right heart strain, ratio of right ventricle to left ventricle measures less than 1. MEDIASTINUM: Unremarkable. No mediastinal or hilar adenopathy. Esophagus is unremarkable. No hiatal hernia. THYROID: Unremarkable. No thyroid lesions. BONES/JOINTS: Unremarkable. No suspicious lytic or blastic abnormality. CT/CTA Chest W/WO Contrast IMPRESSION: Negative CTA chest. Electronically Signed: Marcio Hayes MD at 17:00 EST , Service support ,
[2021-04-11 16:22] LABS: D-Dimer Quantitative (DVT/PE) 1.68 FEU/ug/m (0.27-0.49)
[2021-04-11] MEDS: predniSONE 20 MG Tablet 40 MG PO (17:24)
== END 2021-04-11 17:30 | disposition home or self-care (01) ==
PROVIDERS: Emergency Provider Emergency Medicine; PCP Pediatrics
DX: R09.1 Pleurisy (principal); F32.A Depression, unspecified; F41.9 Anxiety disorder, unspecified; Z79.899 Other long term (current) drug therapy; Z87.891 Personal history of nicotine dependence
CPT/HCPCS: 71045; 71275; 85379; 93005; 99283; Q9967

== ENCOUNTER 2021-07-07 17:07 | Outpatient (CLI) | payer MEDICAID, SELFPAY | END 2021-07-07 23:59 | disposition home or self-care (01) | PROVIDERS: PCP Pediatrics; Visit Provider Obstetrics & Gynecology | DX: N39.0 Urinary tract infection, site not specified (principal) | CPT/HCPCS: 87086; 87088 ==

== ENCOUNTER 2021-08-01 12:53 | Outpatient (CLI) | payer MEDICAID, SELFPAY ==
--- NOTE | 2021-08-01 12:57 | US_ITS ---
STUDY: ULTRASOUND OF THE FEMALE PELVIS - COMPLETE REASON FOR EXAM: Female, 21 years old. IUD placement LMP: 04/19/2021. TECHNIQUE: Transabdominal and Transvaginal TECHNICAL QUALITY: Adequate. COMPARISON: Comparison is made with prior examination dated 11/01/2020. FINDINGS: The uterus is anteverted and is in a midline position. The uterus measures 6.8 cm x 5.1 cm x 3.8 cm. Normal uterine cervix. The endometrium measures 6 mm in thickness, and is hyperechoic. There is no demonstrated endometrial mass. There is no demonstrated myometrial mass. I.U.D. - The patient does have an I.U.D. . The IUD is seen within the fundal portion of the uterus. The right ovary is visualized. The right ovary measures 3 cm x 3.4 cm x 1.7 cm. There is no right ovarian cyst or ovarian mass. There is no visualized right adnexal mass or complex lesion. There is normal arterial and normal venous vascularity. The left ovary is visualized. The left ovary measures 2.4 cm x 2.3 cm x 1.8 cm. A follicle is seen within the ovary measuring 1.3 cm x 1.2 cm x 1 cm. There is no visualized left adnexal mass or complex lesion. There is normal arterial and normal venous vascularity. There is no fluid in the cul-de-sac. The pre void volume of the bladder was 257 ml. US/Pelvic (Non ) IMPRESSION: IUD seen within the fundal portion of the uterus. 1.3 cm x 1.2 cm x 1 cm left follicle. Electronically Signed: Santos Brunett MD at 15:09 EDT ,
--- NOTE | 2021-08-01 12:57 | US_ITS ---
STUDY: ULTRASOUND OF THE FEMALE PELVIS - COMPLETE REASON FOR EXAM: Female, 21 years old. IUD placement LMP: 04/19/2021. TECHNIQUE: Transabdominal and Transvaginal TECHNICAL QUALITY: Adequate. COMPARISON: Comparison is made with prior examination dated 11/01/2020. FINDINGS: The uterus is anteverted and is in a midline position. The uterus measures 6.8 cm x 5.1 cm x 3.8 cm. Normal uterine cervix. The endometrium measures 6 mm in thickness, and is hyperechoic. There is no demonstrated endometrial mass. There is no demonstrated myometrial mass. I.U.D. - The patient does have an I.U.D. . The IUD is seen within the fundal portion of the uterus. The right ovary is visualized. The right ovary measures 3 cm x 3.4 cm x 1.7 cm. There is no right ovarian cyst or ovarian mass. There is no visualized right adnexal mass or complex lesion. There is normal arterial and normal venous vascularity. The left ovary is visualized. The left ovary measures 2.4 cm x 2.3 cm x 1.8 cm. A follicle is seen within the ovary measuring 1.3 cm x 1.2 cm x 1 cm. There is no visualized left adnexal mass or complex lesion. There is normal arterial and normal venous vascularity. There is no fluid in the cul-de-sac. The pre void volume of the bladder was 257 ml. US/Transvaginal Non- IMPRESSION: IUD seen within the fundal portion of the uterus. 1.3 cm x 1.2 cm x 1 cm left follicle. Electronically Signed: Santos Burnett MD at 15:09 EDT ,
== END 2021-08-01 23:59 | disposition home or self-care (01) ==
LOC: US 12:54
PROVIDERS: PCP Pediatrics; Referring Provider Obstetrics & Gynecology; Visit Provider Obstetrics & Gynecology
DX: R10.2 Pelvic and perineal pain (principal)
CPT/HCPCS: 76830; 76856; 93976

== ENCOUNTER 2021-10-04 11:01 | Emergency (ER) | payer MEDICAID, SELFPAY ==
[2021-10-04 11:02] VITALS: BP 104/73; PULSE 78; RESP 17; TEMP 36.7; O2SAT 98; BMI 21.9
--- NOTE | 2021-10-04 11:52 | CM.ED ---
SW Note Referral Source: No PCP SW met with patient as she has no PCP. SW provided patient with [facility] HealthCare Directory and Where to Go When Resources. No other issues or concerns voiced. Plan: Resources provided Sigrid LAMB
[2021-10-04 12:01] LABS: Bacteria 0 SEEN /hpf (None Seen); Red Blood Cells-Urine 0 SEEN /hpf (0-5)
[2021-10-04 12:03] LABS: Color, Urine Yellow (Yellow); Glucose, Dipstick Normal (Normal); Ketone-Dipstick 15 mg/dl (Negative); Leukocyte Esterase-Dipstick 100 /ul (Negative); Nitrite-Dipstick Negative (Negative); Occult Blood-Urine 10 /ul (Negative); Protein-Dipstick 15 mg/dl (Negative); Specific Gravity, Urine 1.015 (1.002-1.030); Urine Bilirubin Dipstick Negative (Negative); Urine Clarity Sl. Cloudy (Clear); Urine Urobilinogen 1 mg/dl (Normal); Urine pH 6.5 (5.0 - 8.0)
[2021-10-04] MEDS: 0.9% Normal Saline 1,000 ML 1000 ML IV (12:06)
[2021-10-04] MEDS: Ondansetron 4 MG/2 ML Vial IV (12:06)
[2021-10-04 12:07] LABS: Absolute Lymphocyte Count 1.06 X10^3/uL (0.83-4.51); Absolute Neutrophil Count 5.1 X10^3/uL (2.0-7.7); Basophil# 0.06 X10^3/uL; Basophil% 0.9 % (0-1); Eosinophil# 0.02 X10^3/uL; Eosinophils% 0.3 % (0-5); Hematocrit 41.4 % (37-47); Hemoglobin 14.1 g/dL (12.0-15.0); Lymphocyte # 1.06 X10^3/ul (0.83-4.51); Lymphocyte % 16.3 % (19-41); Mean Corp Hgb Conc 34.1 g/dL (32-36); Mean Corpuscular Hgb 30.3 pg (27.0-32.0); Mean Platelet Vol. 10.8 fl (6.2-12.0); Monocyte# 0.26 X10^3/uL; NRBC Flagged by Analyzer 0 % (0-5); Neutrophil # 5.11 X10^3/uL (2.7-7.7); Neutrophil % 78.3 % (47-70); Platelet Count 168 K/mm3 (150-450); RBC Distribution Width CV 12.6 % (11.6-14.6); RBC Distribution Width SD 40.9 fl (35.1-43.9); Red Blood Count 4.65 M/mm3 (4.2-5.4); White Blood Count 6.5 K/mm3 (4.4-11.0)
[2021-10-04 12:18] LABS: Mucous, Urine 1+ /hpf (<or=2+); Squamous Epithelial Cells - UA 0-5 SEEN /hpf (5-10); White Blood Cells 0-5 SEEN /hpf (0-5)
[2021-10-04 12:21] LABS: ALB/GLOB Ratio 1.2 RATIO (0.9-2.4); AST(SGOT) 14 U/L (15-37); Alanine Aminotransfer ALT/SGPT 20 U/L (13-56); Albumin, Serum 3.8 g/dL (3.2-5.0); Alkaline Phosphatase 74 U/L (45-117); Anion Gap 6 (5-15); BUN 7 mg/dL (7-18); BUN/Creat Ratio 11.6 RATIO (10-20); Calcium,Total 8.8 mg/dL (8.5-10.1); Chloride 109 mmol/L (98-107); EST Glomerular Filtration Rate 131 mL/min (>60); Est Glom Filt Rate - Afr Amer 159 mL/min (>60); Globulin 3.1 g/dL (2.2-4.2); Glucose 92 mg/dL (74-106); Potassium 3.5 mmol/L (3.5-5.1); Protein, Total 6.9 g/dL (6.4-8.2); Sodium Level 143 mmol/L (136-145)
--- NOTE | 2021-10-04 14:36 | EDS_ITS ---
HPI History of Present Illness Chief Complaint: Nausea/Vomiting Informant: patient Onset/Context/Timing Onset: Weeks (Problem for approximately 2 weeks) Timing: Intermittent (Worse in the morning) Quality: Nausea and vomiting several times in the morning Location: Home Current Severity: Mild (Patient presently complains of nausea) Maximum Severity: Severe Worsened by: Unknown Relieved by: Nothing Associated Symptoms Associated Symptoms: Nothing Narrative Narrative: Patient is a 21-year-old who presents because of nausea and vomiting for the past 2 weeks. The nausea vomit occurs during the morning. She did not have vomiting yesterday morning. She does complain of dry mouth and thirst. She intermittently complains of orthostatic symptoms. She denies hematemesis. She denies black or maroon-colored stool. She does report bilateral lower abdominal pain. She denies fever, chills night sweats. She denies headache. She denies ocular, visual or auditory symptoms. She denies cardiac or respiratory symptoms. Her last normal menses was back to 2 weeks ago. She does have an IUD. She has no signs or symptoms of . She denies dysuria, frequency, urgency or hematuria. She denies abnormal vaginal bleeding or discharge. Prior similar symptoms: No Recent Illness/Hospitalization: No PFSH PFSH Medical History Anxiety and depression Fatigue Pilonidal cyst Home Medications ondansetron 4 mg PO Q8H PRN PRN #10 tab 10/04/21 [Rx Last Taken Unknown] Allergy/AdvReac Type Severity Reaction Status Date / Time No Known Allergies Allergy Verified 10/04/21 11:02 Family History Father Arthritis Diabetes Hypertension High cholesterol Mother Arthritis Hypertension Lupus Surgical History History of laparoscopy Social History (Updated 10/04/21 @ 14:[address] 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 ROS ED Constitutional Constitutional ED: Denies chills, fever(s), subjective, sweats or weight loss Eyes Eyes: Denies blurry vision, change in vision or diplopia ENT ENT ED: Denies ear pain, rhinorrhea or sore throat Cardiovascular Cardiovascular: Denies chest pain, palpitations or racing heartbeat Respiratory/Chest Respiratory/Chest: Denies cough, dyspnea or dyspnea on exertion Gastrointestinal Gastrointestinal: Reports abdominal pain, nausea and vomiting; Denies constipation, diarrhea or melena Genitourinary Genitourinary ED: Denies dysuria, hematuria or urinary frequency Musculoskeletal Musculoskeletal: Denies arthralgias, back pain, myalgias or neck pain Integumentary Denies abscess, Abrasions or rash Neurologic Neurologic: Denies headache(s) or weakness Psychiatric Psychiatric: Reports anxiety and depression Endocrine Endocrinology: Denies polydipsia, polyphagia or polyuria EXAM Physical Exam Const Vital Signs: 10/04/21 11:02 Temperature 98.0 F Temperature Source Temporal Pulse Rate 78 Respiratory Rate 17 Blood Pressure 104/73 Blood Pressure Mean 83 Pulse Ox 98 Oxygen Delivery Method Room Air Positive well nourished and well developed General Appearance ED: well developed, pallor and other Patient appears slightly pale. Does not appear toxic. ; Negative for cyanotic, diaphoretic or NAD HEENT Reports dry mucous membranes; Denies TM's clear Negative for trauma or tenderness Tympanic Membrane ED: Negative for TM's clear Mouth ED: Yes dry mucous membranes Mouth: dry mucous membranes Eyes PERRL and EOMs intact bilaterally General Eye ED: Negative for pale conjunctiva or scleral icterus Neck no lymphadenopathy, supple and no JVD Resp normal respiratory effort and clear to auscultation bilaterally Cardio regular rate, regular rhythm, S1 normal heart sound, S2 normal heart sound and no murmurs GI normal to inspection, nondistended, normoactive bowel sounds, non-tender and non-distended Palpation: soft Back/Spine no CVA tenderness Thoracic Spine / Upper Back: Negative for thoracic spinal tenderness or paraspinal muscle tenderness Extremity normal to inspection General Extremety ED: Negative for edema or tenderness General Extremity: Negative for edema Neuro oriented x3, CN's II-XII intact bilaterally and no sensory deficits noted Sensorium / Orientation: alert Motor Exam: strength 5/5 throughout Psych Appearance: other Affect is flat Skin no rashes or lesions noted, no wounds and No skin turgor normal General Skin Exam: pallor; Negative for jaundice MDM MDM MDM Narrative Medical decision making narrative: Patient states she is performed 3 test and they are all negative. Will obtain CBC to assess for anemia and white count. Comprehensive metabolic panel to assess liver enzymes and renal function. Urinalysis to assess specific gravity and if patient has ketones consistent with poor p.o. intake. Patient was treated with Zofran and IV fluids. Patient was reassessed at 1435. She does appear better and reports feeling better. She asked if I may know what is the cause. She was asked if she is under significant stress and she admitted yes. I suspect this represents cyclic vomiting. Lab Data Attestation: I reviewed the patient's lab results. Labs: Laboratory Results - last 24 hr 10/04/21 10/04/21 10/04/21 11:52 11:55 11:55 WBC 6.5 RBC 4.65 Hgb 14.1 Hct 41.4 MCV 89.0 MCH 30.3 MCHC 34.1 RDW Std Deviation 40.9 RDW Coeff of Zi 12.6 Plt Count 168 MPV 10.8 Immature Gran % (Auto) 0.200 Neut % (Auto) 78.3 H Lymph % (Auto) 16.3 L [place] % (Auto) 4.0 Eos % (Auto) 0.3 Baso % (Auto) 0.9 Absolute Neuts (auto) 5.1 Absolute Lymphs (auto) 1.06 Nucleated RBC % 0 Sodium 143 Potassium 3.5 Chloride 109 H Carbon Dioxide 28.0 Anion Gap 6 BUN 7 Creatinine 0.60 Estim Creat Clear Calc 127.00 Est GFR (MDRD) Af Amer 159 Est GFR (MDRD) Non-Af 131 BUN/Creatinine Ratio 11.6 Glucose 92 Calcium 8.8 Total Bilirubin 0.40 AST 14 L ALT 20 Alkaline Phosphatase 74 Total Protein 6.9 Albumin 3.8 Globulin 3.1 Albumin/Globulin Ratio 1.2 Urine Color Yellow Urine Clarity Sl. Cloudy Urine pH 6.5 Ur Specific [place] 1.015 Urine Protein 15 H Urine Glucose (UA) Normal Urine Ketones 15 H Urine Occult Blood 10 H Urine Nitrite Negative Urine Bilirubin Negative Urine Urobilinogen 1 H Ur Leukocyte Esterase 100 H Urine RBC 0 SEEN Urine WBC 0-5 SEEN Ur Squamous Epith Cells 0-5 SEEN Urine Bacteria 0 SEEN Urine Mucus 1+ Discharge Plan Triage Chief Complaint: Nausea/Vomiting ED Provider: Beau Rebolledo Dx/Rx/DC Orders Clinical Impression: Cyclic vomiting syndrome, Dehydration, mild, Ketosis Instructions: ED Cyclic Vomiting Syndrome Prescriptions: New ondansetron [ondansetron] 4 MG tablet 4 mg PO Q8H PRN PRN (Reason: Nausea) Qty: 10 RF: 0 Primary Care Provider: Care Physician,No Primary Referrals: Claudia Fulton [NON-STAFF] - 5-7 Days Care Physician,No Primary [Primary Care Provider] - Disposition Disposition: Home, Self Care
[2021-10-04 15:18] VITALS: PULSE 82; RESP 17; O2SAT 99
== END 2021-10-04 15:19 | disposition home or self-care (01) ==
PROVIDERS: Emergency Provider Emergency Medicine; Visit Provider Emergency Medicine
DX: R11.15 Cyclical vomiting syndrome unrelated to migraine (principal); E86.0 Dehydration; E87.2 Acidosis; R10.32 Left lower quadrant pain; R10.31 Right lower quadrant pain; Z97.5 Presence of (intrauterine) contraceptive device; Z87.891 Personal history of nicotine dependence
CPT/HCPCS: 80053; 81001; 85025; 96361; 96374; 99283; J7030; J2405

== ENCOUNTER → 2022-09-04 | Outpatient (CLI) | payer MEDICAID, SELFPAY ==
--- NOTE | 2022-09-04 07:17 | US_ITS ---
STUDY: ULTRASOUND TRANSVAGINAL CLINICAL: Female, 22 years old patient presents for IUD placement check. TECHNIQUE: Transvaginal COMPARISON: Pelvic ultrasound dated November 01, 2020. FINDINGS: Normal uterine size measuring 8.1 cm in maximal craniocaudal dimension. There are no myometrial masses. Normal endometrial thickness measuring 6 mm. There are no endometrial masses. There is small volume of fluid in the endometrial cavity. IUD is documented within the endometrial cavity. Normal uterine cervix. Normal right ovary, measuring 3.5 x 1.6 x 2.0 cm. There are multiple follicles without a dominant cyst. Normal left ovary, measuring 2.9 x 1.5 x 2.9 cm. There are multiple follicles with a dominant cyst measuring 1.5 x 1.1 x 1.5 cm. There is no free fluid in the pelvis. Polycystic ovary disease: No. US/Transvaginal Non- IMPRESSION: 1. IUD is documented within the endometrial cavity. 2. Small volume of endometrial fluid. Electronically Signed: Galilea Soriano MD at 7:59 EDT ,
== END | disposition home or self-care (01) ==
LOC: US 07:17
PROVIDERS: Referring Provider Nurse Practitioner Women's Health; Visit Provider Nurse Practitioner Women's Health
DX: R10.2 Pelvic and perineal pain (principal)
CPT/HCPCS: 76830

== ENCOUNTER 2022-11-10 07:02 | Emergency (ER) | payer MEDICAID, SELFPAY ==
[2022-11-10 07:04] VITALS: BP 124/74; PULSE 79; RESP 16; TEMP 35.9; O2SAT 100; BMI 19.7
--- NOTE | 2022-11-10 07:17 | EDS_ITS ---
HPI HPI - Female History of Present Illness Chief Complaint: Complaint Informant: patient Pain Pain: Positive for Pelvic Pain Associated Symptoms Associated Symptoms: Positive for Dysuria, Frequency and Urgency; Negative for Hematuria Narrative Narrative: 22-year-old female feels like she has a UTI. She has been having symptoms for 6 days, she states usually they go away on their own without antibiotics but this 1 has been persistent so she presents because the discomfort is increasing. She has burning dysuria, frequency, urgency, hesitancy without hematuria. She had some suprapubic discomfort that is not severe, radiates into her mid low back, no fevers, nausea, vomiting, or vaginal symptoms. She has been taking Azo, injolly oreilly was helping but now it is not and she was up all night urinating off and on. PFSH [facility] Medical History Anxiety and depression Fatigue Pilonidal cyst Vaginal delivery Home Medications ondansetron 4 mg disintegrating tablet 4 mg PO Q8H PRN PRN Nausea #10 tabs 10/04/21 [Rx Last Taken Unknown] sulfamethoxazole 800 mg-trimethoprim 160 mg tablet 1 tab PO BID #6 TABLETS 11/10/22 [Rx Last Taken Unknown] Allergy/AdvReac Type Severity Reaction Status Date / Time No Known Allergies Allergy Verified 11/10/22 07:43 Family History Father Arthritis Diabetes Hypertension High cholesterol Mother Arthritis Hypertension Lupus Surgical History History of laparoscopy Social History household members: children Smoking Status: Former smoker quit date: 07/16/17 second hand exposure: No alcohol intake: never substance use type: does not use caffeine: Yes what type of physical activity do you participate in: none seatbelt use: always do you feel safe at home: Yes 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 ROS ED Constitutional Constitutional ED: Denies chills or fever(s) Gastrointestinal Gastrointestinal: Reports abdominal pain; Denies nausea or vomiting Genitourinary Genitourinary ED: Reports dysuria and urinary frequency; Denies hematuria Musculoskeletal Musculoskeletal: Reports as per HPI and back pain EXAM Physical Exam Const Vital Signs: 11/10/22 07:04 11/10/22 09:22 Temperature 96.6 F L 97.8 F Temperature Source Temporal Pulse Rate 79 64 Respiratory Rate 16 14 Blood Pressure 124/74 H 124/76 H Blood Pressure Mean 90 Pulse Ox 100 99 Oxygen Delivery Method Room Air Positive well nourished and well developed General Appearance ED: well developed and NAD HEENT Reports moist mucous membranes Eyes PERRL and EOMs intact bilaterally Resp normal respiratory effort GI soft to palpation and non-distended GI Narrative: Mild suprapubic tenderness, otherwise benign abdomen. No guarding or rebound. Back/Spine no CVA tenderness Neuro oriented x3, CN's II-XII intact bilaterally and gait normal Psych mental status grossly normal Skin no rashes or lesions noted and no wounds MDM MDM MDM Narrative Medical decision making narrative: negative, urinalysis consistent with infection although nitrate positive is probably due to the fact that her urine is orange from Azo. She does have pyuria and no need for a culture and is young healthy female with a history of UTIs and classic symptoms at this time will place on Bactrim. Lab Data Attestation: I reviewed the patient's lab results. Labs: Laboratory Results - last 24 hr 11/10/22 07:15 Urine Color Shira Urine Clarity Clear Urine pH 6.0 Ur Specific [place] 1.020 Urine Protein 30 H Urine Glucose (UA) Normal Urine Ketones Negative Urine Occult Blood 25 H Urine Nitrite Positive H Urine Bilirubin 3 H Urine Urobilinogen 8 H Ur Leukocyte Esterase 100 H Urine RBC 0-5 SEEN Urine WBC 25-50 SEEN Ur Squamous Epith Cells 0-5 SEEN Urine Bacteria 3+ Urine Mucus 0 SEEN Urine Test Negative Discharge Plan Triage Chief Complaint: Complaint ED Provider: Delfin Bashir Dx/Rx/DC Orders Clinical Impression: Acute cystitis without hematuria Instructions: ED Cystitis Female Adult Prescriptions: New sulfamethoxazole-trimethoprim [sulfamethoxazole-trimethoprim] 800-160 mg tablet 1 tab PO BID Qty: 6 0RF No Action ondansetron [ondansetron] 4 MG tablet 4 mg PO Q8H PRN PRN (Reason: Nausea) Qty: 10 0RF Primary Care Provider: Care Physician,No Primary Referrals: Doctor,Your [Non-Staff] - 3-5 Days if not improving Disposition Disposition: Home, Self Care Discharge Date/Time: 11/10/22 09:26
[2022-11-10 07:18] LABS: Mucous, Urine 0 SEEN /hpf (<or=2+)
[2022-11-10 07:20] LABS: Color, Urine Amber (Yellow); Glucose, Dipstick Normal (Normal); Ketone-Dipstick Negative (Negative); Leukocyte Esterase-Dipstick 100 /ul (Negative); Nitrite-Dipstick Positive (Negative); Occult Blood-Urine 25 /ul (Negative); Protein-Dipstick 30 mg/dl (Negative); Urine Clarity Clear (Clear); Urine Urobilinogen 8 mg/dl (Normal)
[2022-11-10] MEDS: Smz/Tmp Ds Tablet 1 TABLET PO (07:59)
[2022-11-10 09:03] LABS: Internal QC Validated? YES +Cl - CLEAR BKGD; Pregnancy, Urine Negative Negative
[2022-11-10 09:22] VITALS: BP 124/76; PULSE 64; RESP 14; TEMP 36.6; O2SAT 99
[2022-11-10 09:27] LABS: Urine Bilirubin Dipstick 3 mg/dL (Negative)
[2022-11-10 09:35] LABS: Bacteria 3+ /hpf (None Seen); Red Blood Cells-Urine 0-5 SEEN /hpf (0-5); Squamous Epithelial Cells - UA 0-5 SEEN /hpf (5-10); White Blood Cells 25-50 SEEN /hpf (0-5)
== END 2022-11-10 09:26 | disposition home or self-care (01) ==
LOC: ED 07:21
PROVIDERS: Emergency Provider Emergency Medicine; Visit Provider Emergency Medicine
DX: N30.00 Acute cystitis without hematuria (principal); R82.81 Pyuria; Z87.891 Personal history of nicotine dependence
CPT/HCPCS: 81001; 81025; 99283

== ENCOUNTER 2022-12-08 12:24 | Emergency (ER) | payer MEDICAID, SELFPAY ==
[2022-12-08 12:25] VITALS: BP 121/67; PULSE 83; RESP 14; TEMP 36.3; O2SAT 99; BMI 20.6
[2022-12-08 12:38] VITALS: BP 111/69; PULSE 75; RESP 16; TEMP 37.5; O2SAT 100
--- NOTE | 2022-12-08 12:49 | EDS_ITS ---
HPI History of Present Illness Chief Complaint: General Illness Detail of Chief Complaint: Back and abdomen pain and chills Informant: patient Narrative Narrative: Patient presents the emergency department with complaint of pain in her right lower back and right lower quadrant of her abdomen. Patient states initially started 3 days ago. She was seen at [facility] last evening and she had lab work including a CT scan of her abdomen pelvis. Patient was diagnosed with a UTI and started on cefdinir. Patient does complain of frequency. She complains of nausea. She complains of chills and sweats. She was told that if she got worse to come back to the emergency department but she came to our facility instead. [facility] Medical History Anxiety and depression Fatigue Pilonidal cyst Vaginal delivery Home Medications cefdinir 300 mg capsule 300 mg PO Q12H 12/08/22 [History Last Taken 12/08/22] Allergy/AdvReac Type Severity Reaction Status Date / Time No Known Allergies Allergy Verified 12/08/22 12:25 Family History Father Arthritis Diabetes Hypertension High cholesterol Mother Arthritis Hypertension Lupus Surgical History History of laparoscopy Social History (Updated 12/08/22 @ 12:33 by Tammy Singletary) household members: spouse and children Smoking Status: Current some day smoker tobacco type: e-cigarettes second hand exposure: No alcohol intake: never substance use type: does not use caffeine: Yes what type of physical activity do you participate in: none seatbelt use: always do you feel safe at home: Yes 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 ROS ED Review of Systems ROS Unobtainable: other Constitutional Constitutional ED: Reports chills, fever(s) and lethargy; Denies sweats or weight loss Eyes Eyes: Denies blurry vision, change in vision or diplopia ENT ENT ED: Denies rhinorrhea or sore throat Cardiovascular Cardiovascular: Denies chest pain, orthopnea or racing heartbeat Respiratory/Chest Respiratory/Chest: Denies cough, dyspnea, dyspnea on exertion, orthopnea or sputum Gastrointestinal Gastrointestinal: Reports abdominal pain; Denies diarrhea, nausea or vomiting Genitourinary Genitourinary ED: Denies dysuria, hematuria or urinary frequency Musculoskeletal Musculoskeletal: Reports back pain; Denies arthralgias, myalgias or neck pain Integumentary Denies abscess, Abrasions or rash Neurologic Neurologic: Denies headache(s) or weakness Psychiatric Psychiatric: Denies anxiety, depression or suicidal thoughts Endocrine Endocrinology: Denies polydipsia, polyphagia or polyuria Hematologic/Lymphatic Hematologic/Lymphatic: Denies easy bleeding, easy bruising or lymphadenopathy Allergic/Immunologic Allergic/Immunologic ED: Denies mouth swelling, tongue swelling or urticaria EXAM Physical Exam Const Vital Signs: 12/08/22 12:25 12/08/22 12:33 12/08/22 12:38 Temperature 97.4 F L 99.5 F H Temperature Source Temporal Temporal Pulse Rate 83 75 Respiratory Rate 14 16 Respiratory Effort Short of Breath Respiratory Pattern Normal Blood Pressure 121/67 H 111/69 Blood Pressure Mean 85 83 Pulse Ox 99 100 Oxygen Delivery Method Room Air Room Air 12/08/22 16:01 Temperature Temperature Source Pulse Rate Respiratory Rate 16 Respiratory Effort Respiratory Pattern Blood Pressure Blood Pressure Mean Pulse Ox Oxygen Delivery Method Positive well nourished and well developed General Appearance ED: well developed and NAD HEENT Reports TM's clear and moist mucous membranes normocephalic and atraumatic; Negative for trauma or tenderness Tympanic Membrane ED: Yes TM's clear Eyes PERRL and EOMs intact bilaterally General Eye ED: Negative for pale conjunctiva or scleral icterus Neck no lymphadenopathy, supple and no JVD General: Negative for tenderness Chest Wall inspection of chest normal and palpation of chest normal Chest: Negative for tenderness Resp normal respiratory effort and clear to auscultation bilaterally Effort and Inspection: Negative for respiratory distress or pain with movement Auscultation: Negative for rhonchi, wheezes or diminished lung sounds Cardio regular rate, regular rhythm, S1 normal heart sound, S2 normal heart sound and no murmurs Peripheral Pulses: pulses 2+ throughout GI normal to inspection, nondistended, normoactive bowel sounds, soft to palpation, non-distended and no masses GI Narrative: Tenderness palpation over the right lower quadrant and left lower quadrant with some guarding. There is no rebound, rigidity, or pedal signs. No mass palpated. She does have CVA tenderness on the right. Back/Spine no thoracic nor lumbar tenderness Back/Spine Narrative: CVA tenderness on the right. Extremity normal to inspection General Extremety ED: Negative for edema General Extremity: Negative for edema Neuro oriented x3, CN's II-XII intact bilaterally, no sensory deficits noted and gait normal Sensorium / Orientation: awake, alert, oriented to person, oriented to place and oriented to time Motor Exam: strength 5/5 throughout and strength abnormal Psych mental status grossly normal Skin no rashes or lesions noted and no wounds MDM MDM MDM Narrative Medical decision making narrative: Patient presents with right-sided lower abdomen and back pain. Seen at [facility] last evening. Did have an odor to her urine about a week ago. She has had some frequency. She had lab work and CT yesterday and I was able to get those results from [facility]. The CT did not definitively see the appendix. Lactate was normal other lab work unremarkable. Patient had blood cultures ordered and sent. CBC with differential obtained here showed a white count of 6.7 with hemoglobin 12.8 and platelet count of 108. Chemistries unremarkable. He had urinalysis had 0-5 WBCs and no bacteria and was negative for nitrites. I did order a CT scan of the abdomen pelvis with IV and p.o. contrast to evaluate further. CT was read by radiology as normal visualized appendix. She had stones in both kidneys but no urolithiasis. Nothing else significant. I did send urine for gonorrhea chlamydia and a urine culture. Clinically patient looks well. Her lactate was normal. Suspect likely this was UTI and recommended she continue with her antibiotics. Advised to push fluids. Advised to return if worsening pain, fever, vomiting, or condition should worsen anyway. Patient is and monogamous and is not concerned about PID. Lab Data Attestation: I reviewed the patient's lab results. Labs: Laboratory Results - last 24 hr 12/08/22 13:07 WBC 6.7 RBC 4.18 L Hgb 12.8 Hct 38.9 MCV 93.1 MCH 30.6 MCHC 32.9 RDW Std Deviation 41.2 RDW Coeff of Zi 12.0 Plt Count 108 L MPV 11.2 Immature Gran % (Auto) 0.100 Neut % (Auto) 73.7 H Lymph % (Auto) 14.2 L [place] % (Auto) 10.0 Eos % (Auto) 1.6 Baso % (Auto) 0.4 Absolute Neuts (auto) 4.9 Absolute Lymphs (auto) 0.95 Nucleated RBC % 0 Sodium 142 Potassium 3.6 Chloride 111 H Carbon Dioxide 27.0 Anion Gap 4 L BUN 10 Creatinine 0.47 L Estim Creat Clear Calc 160.50 Est GFR (MDRD) Af Amer 211 Est GFR (MDRD) Non-Af 174 BUN/Creatinine Ratio 21.4 H Glucose 86 Lactic Acid 0.8 Calcium 8.0 L Serum , Qual NEGATIVE Urine Color Yellow Urine Clarity Sl. Cloudy Urine pH 7.0 Ur Specific [place] 1.010 Urine Protein 30 H Urine Glucose (UA) Normal Urine Ketones 5 H Urine Occult Blood 10 H Urine Nitrite Negative Urine Bilirubin Negative Urine Urobilinogen 1 H Ur Leukocyte Esterase Negative Urine RBC 0 SEEN Urine WBC 0-5 SEEN Ur Squamous Epith Cells 5-10 SEEN Urine Bacteria 0 SEEN Urine Mucus 0 SEEN Radiography Diagnostic Testing: Clinical Impression(s) from Imaging Studies Abdomen/Pelvis CT 12/08/22 13:33 IMPRESSION: (NOT LISTED IN ORDER OF SIGNIFICANCE) The appendix is visualized and is normal. 1.7 mm solitary nodule in the right lower lobe. This is stable since April 11, 2021. Fleischner Society Guidelines (MacMahon, et al. Radiology 2017; 284(1):228-43) suggest that no follow-up is necessary for patients with a low or high risk of malignancy. There are bilateral renal calculi. There is no evidence for an obstruction. There is no hydronephrosis. Other findings as above. Electronically Signed: Marcio Hayes MD at 15:35 EDT Reading Location ID and State: [facility] / [place] , Service support , ADDENDUM: 12/08/22 [id number] IMPRESSION: undefined Discharge Plan Triage Chief Complaint: General Illness ED Provider: Radha Curtis Dx/Rx/DC Orders Clinical Impression: UTI (urinary tract infection), Fever Instructions: ED FUO Adult, ED Cystitis Female Adult Prescriptions: No Action cefdinir 300 mg capsule 300 mg PO Q12H Primary Care Provider: Care Physician,No Primary Referrals: Mera Perry MD [Med Staff - [employer]] - 3-5 Days Care Physician,No Primary [Primary Care Provider] - Disposition Disposition: Home, Self Care Discharge Date/Time: 12/08/22 16:02
[2022-12-08] MEDS: Ketorolac 30 MG/ML Syringe IV (13:02)
[2022-12-08] MEDS: 0.9% Normal Saline 1,000 ML 150 ML IV (13:05)
[2022-12-08 13:18] LABS: Bacteria 0 SEEN /hpf (None Seen); Mucous, Urine 0 SEEN /hpf (<or=2+); Red Blood Cells-Urine 0 SEEN /hpf (0-5)
[2022-12-08 13:21] LABS: Color, Urine Yellow (Yellow); Glucose, Dipstick Normal (Normal); Ketone-Dipstick 5 mg/dl (Negative); Leukocyte Esterase-Dipstick Negative /ul (Negative); Nitrite-Dipstick Negative (Negative); Occult Blood-Urine 10 /ul (Negative); Protein-Dipstick 30 mg/dl (Negative); Urine Bilirubin Dipstick Negative (Negative); Urine Clarity Sl. Cloudy (Clear); Urine Urobilinogen 1 mg/dl (Normal)
[2022-12-08 13:22] LABS: Absolute Lymphocyte Count 0.95 X10^3/uL (0.83-4.51); Absolute Neutrophil Count 4.9 X10^3/uL (2.0-7.7); Basophil# 0.03 X10^3/uL; Basophil% 0.4 % (0-1); Eosinophil# 0.11 X10^3/uL; Eosinophils% 1.6 % (0-5); Hematocrit 38.9 % (37-47); Hemoglobin 12.8 g/dL (12.0-15.0); Lymphocyte # 0.95 X10^3/ul (0.83-4.51); Lymphocyte % 14.2 % (19-41); Mean Corp Hgb Conc 32.9 g/dL (32-36); Mean Corpuscular Hgb 30.6 pg (27.0-32.0); Mean Corpuscular Volume 93.1 fL (81-99); Mean Platelet Vol. 11.2 fl (6.2-12.0); Monocyte# 0.67 X10^3/uL; NRBC Flagged by Analyzer 0 % (0-5); Neutrophil # 4.93 X10^3/uL (2.7-7.7); Neutrophil % 73.7 % (47-70); Platelet Count 108 K/mm3 (150-450); RBC Distribution Width SD 41.2 fl (35.1-43.9); Red Blood Count 4.18 M/mm3 (4.2-5.4); White Blood Count 6.7 K/mm3 (4.4-11.0)
[2022-12-08 13:28] LABS: Internal QC Validated? YES +Cl - CLEAR BKGD; Pregnancy, Serum, hCG Quali. NEGATIVE Negative; Squamous Epithelial Cells - UA 5-10 SEEN /hpf (5-10); White Blood Cells 0-5 SEEN /hpf (0-5)
[2022-12-08 13:33] LABS: Anion Gap 4 (5-15); BUN 10 mg/dL (7-18); BUN/Creat Ratio 21.4 RATIO (10-20); Chloride 111 mmol/L (98-107); Creatinine, Serum 0.47 mg/dL (0.55-1.02); EST Glomerular Filtration Rate 174 mL/min (>60); Est Glom Filt Rate - Afr Amer 211 mL/min (>60); Glucose 86 mg/dL (74-106); Potassium 3.6 mmol/L (3.5-5.1); Sodium Level 142 mmol/L (136-145)
--- NOTE | 2022-12-08 13:33 | CT_ITS ---
STUDY: CT Abdomen And Pelvis W/ Contrast Injection 12/08/2022 3:29 PM REASON FOR EXAM: Female, 22 years old. ABDOMINAL PAIN right lower quadrant abdominal pain TECHNIQUE: Transaxial images were obtained oral contrast, and Oral and amp; IV Gastrografin and amp; 100mL Isovue-370 intravenous contrast. Individualized dose optimization techniques were used for this CT. COMPARISON: 05.21.19 CT abdomen and pelvis and CT chest of April 11, 2021 FINDINGS: 1.7 mm solitary nodule in the right lower lobe. This is stable since April 11, 2021. The visualized portions of the heart are within normal limits. Unremarkable liver. Unremarkable gallbladder and extrahepatic biliary system. Unremarkable spleen. Unremarkable pancreas. Unremarkable bilateral adrenal glands. Non obstructive 3.8 mm right renal parenchymal stones. Non obstructive 3.9mm left renal parenchymal stones. Unremarkable visualized stomach. Unremarkable small intestine. Unremarkable colon. The appendix is visualized and appears unremarkable. There are no acute findings of the abdominal aorta. Unremarkable inferior vena cava. Subcentimeter mesenteric lymph nodes. Unremarkable urinary bladder. Normal visualized uterus. IUD visualized. There is an umbilical hernia containing fat. Unremarkable osseous structures. CT/Abdomen/Pelvis WITH Contrast IMPRESSION: (NOT LISTED IN ORDER OF SIGNIFICANCE) The appendix is visualized and is normal. 1.7 mm solitary nodule in the right lower lobe. This is stable since April 11, 2021. Fleischner Society Guidelines (MacMahon, et al. Radiology 2017; 284(1):228-43) suggest that no follow-up is necessary for patients with a low or high risk of malignancy. There are bilateral renal calculi. There is no evidence for an obstruction. There is no hydronephrosis. Other findings as above. Electronically Signed: Marcio Hayes MD at 15:35 EDT ,
[2022-12-08 13:44] LABS: Lactic Acid 0.8 mmol/L (0.4-1.9)
[2022-12-08 16:01] VITALS: RESP 16
== END 2022-12-08 16:02 | disposition home or self-care (01) ==
PROVIDERS: Emergency Provider Emergency Medicine; Visit Provider Emergency Medicine
DX: N39.0 Urinary tract infection, site not specified (principal); N20.0 Calculus of kidney; F17.290 Nicotine dependence, other tobacco product, uncomplicated
CPT/HCPCS: 74177; 80048; 81001; 83605; 84703; 85025; 87040; 87491; 87591; 96361; 96374; 99283; J7030; Q9967

== ENCOUNTER → 2022-12-19 | Outpatient (CLI) | payer MEDICAID, SELFPAY ==
--- NOTE | 2022-12-19 09:42 | RAD_ITS ---
EXAM: XR ABDOMEN, 1 VIEW CLINICAL INDICATION: KIDNEY STONES TECHNIQUE: 2 frontal supine views of the abdomen/pelvis. COMPARISON: Abdominal pelvic CT of 12/08/2022. FINDINGS: LOWER THORAX: Visualized lung bases are clear. GASTROINTESTINAL TRACT: Scattered gas and fecal material within the colon. No distended bowel loops. ORGANS: Projected over the mid to lower pole of the left kidney is a 7 mm ovoid calcification which correlates with a renal stone seen on the prior CT. Projected over the lower pole of the right kidney and stool-filled proximal transverse colon is a 3 mm ovoid calcific density. No organomegaly. BONES/JOINTS: Slight lumbar levoscoliosis. No acute osseous abnormality. SOFT TISSUES: IUD projected over the mid pelvis. RAD/Abdomen Single View IMPRESSION: Nonobstructing 7 mm left renal calculus. 3 mm calcification projected over the lower pole of the right kidney, which could represent a renal calculus or opaque material within the fecal stream. Normal bowel gas pattern. Electronically Signed: Graham Smith MD at 23:00 EDT ,
== END | disposition home or self-care (01) ==
PROVIDERS: Referring Provider Urology; Visit Provider Urology
DX: N20.0 Calculus of kidney (principal)
CPT/HCPCS: 74018

== ENCOUNTER 2023-01-10 09:41 | Day surgery (SDC) | payer MEDICAID, SELFPAY ==
[2023-01-10 10:08] VITALS: BP 110/72; PULSE 65; RESP 16; TEMP 36.7; O2SAT 100; BMI 19.3
[2023-01-10] MEDS: Lactated Ringers 1,000 ML 15 ML IV (10:11)
[2023-01-10 10:38] LABS: Internal QC Validated? YES +Cl - CLEAR BKGD; Pregnancy, Urine Negative Negative; Record Kit Lot#,Urine Preg HCG0000667200
[2023-01-10] MEDS: Cefazolin 2 GM in 0.9% Normal Saline 100 ML IV (11:54)
[2023-01-10 13:00] VITALS: BP 105/67; BP 110/72; PULSE 58; RESP 18; O2SAT 100
[2023-01-10 13:13] VITALS: BP 109/74; BP 110/72; PULSE 60; RESP 18; TEMP 36.6; O2SAT 99
[2023-01-10 13:15] VITALS: BP 100/68; BP 110/72; PULSE 56; RESP 18; O2SAT 100
[2023-01-10 13:25] VITALS: BP 110/72; BP 98/68; PULSE 56; RESP 18; TEMP 36.6; O2SAT 100
--- NOTE | 2023-01-10 13:31 | DCINST_ITS ---
Discharge Instructions Diet Discharge Diet: No restrictions Activity Discharge Activity: Return to Normal Activity Dressing / Incision Call your doctor if you observe: Fever of 101 or Higher, Inability to urinate and Inability to have a bowel movement Follow Up Care Please Follow Up With: Shy Henry MD When: The office will call to make arrangements for follow-up in 2 to 3 weeks with a KUB Test Results: Test results from this visit will be discussed in further detail at your follow- up appointment, if applicable. Discharge Plan Admission Attending Provider: Shy Henry Primary Care Provider: Care PhysicianJennifer Primary Discharge Orders/Prescriptions Prescriptions: New oxycodone-acetaminophen [Percocet] 5-325 mg tablet 1 tab PO Q8H PRN (Reason: pain) 3 Days Qty: 10 0RF cephalexin [cephalexin] 500 mg capsule 500 mg PO Q12 3 Days Qty: 6 0RF Continued cranberry 1,000 mg capsule 1,000 mg PO DAILY Rx Instructions: administer with a meal Referrals / Follow Up: Care Physician,Jennifer Primary [Primary Care Provider] - Disposition Disposition (needs filled in before D/C Order can be placed): Home, Self Care
--- NOTE | 2023-01-10 13:33 | PCM.OPRPT ---
Report of Operation Date of Procedure: 01/10/23 Pre-Operative Diagnosis: Left renal stone Post-Operative Diagnosis: Same Surgery/Procedure Performed:: Left renal extracorporal shockwave lithotripsy Surgeon: Shy Henry Type of Anesthesia: General Description of Procedure: The patient is a 22-year-old female with stones identified on a CT scan who now presents for definitive surgical intervention. Informed consent has been obtained. The patient was taken to the operating room and placed on the operating room table. Anesthesia monitored the head, neck, airway, IV access and vital signs throughout the case. Once anesthesia was appropriately administered, the patient was aligned with the lithotripter and the stone was easily visible. In total 2000 shocks were applied to the stone which appeared to be completely fragmented and was no longer visible. At this time the patient was awakened and taken to the recovery room in good condition. There were no complications during this procedure. Complications None Admit VTE Documentation VTE Present on Admission: Yes VTE Mechan Device Prophylaxis: SCD's VTE Pharm Prophylaxis ordered?: No Reason prophylaxis not ordered:: Treatment Not Indicated
[2023-01-10 13:41] VITALS: BP 110/72
== END 2023-01-10 14:02 | disposition home or self-care (01) ==
LOC: SDC 09:41 → AC 09:43
PROVIDERS: Anesthesiology; Referring Provider Urology; Visit Provider Urology
PROC: (CPT 50590; principal; 2023-01-10 11:10)
DX: N20.0 Calculus of kidney (principal); N39.3 Stress incontinence (female) (male); F17.290 Nicotine dependence, other tobacco product, uncomplicated
CPT/HCPCS: 50590; 00873; 81025; J7120; J2405

== ENCOUNTER → 2023-01-30 | Outpatient (CLI) | payer MEDICAID, SELFPAY ==
--- NOTE | 2023-01-30 15:00 | RAD_ITS ---
STUDY: X-RAY - ABDOMEN/PELVIS REASON FOR EXAM: Female, 22 years old. RENAL CALC TECHNIQUE: Frontal views COMPARISON: None. FINDINGS: Normal visualized lung bases. There is an unremarkable bowel gas pattern. There is no demonstrated free abdominal air. Retained gastric contents. IUD noted over the pelvis. Normal soft tissue structures. Normal visualized osseous structures. RAD/Abdomen Single View IMPRESSION: Normal x-ray examination of the abdomen and pelvis. Electronically Signed: Rafy Link DO at 17:25 EDT ,
== END | disposition home or self-care (01) ==
PROVIDERS: Referring Provider Urology; Visit Provider Urology
DX: N20.0 Calculus of kidney (principal)
CPT/HCPCS: 74018

== ENCOUNTER → 2023-04-03 | Outpatient (CLI) | payer MEDICAID, SELFPAY | END | disposition home or self-care (01) | LOC: LABSPEC 13:32 | PROVIDERS: Referring Provider Nurse Practitioner Women's Health; Visit Provider Nurse Practitioner Women's Health | DX: O23.40 Unspecified infection of urinary tract in pregnancy, unspecified trimester (principal); Z3A.00 Weeks of gestation of pregnancy not specified | CPT/HCPCS: 87086; 87088; 87186 ==

== ENCOUNTER → 2023-04-16 | Outpatient (CLI) | payer MEDICAID, SELFPAY ==
[2023-04-16 15:40] LABS: hCG Titer Quant., Serum 17187 mIU/mL (1-3)
[2023-04-18 21:07] LABS: Chlamydia By Nucleic Acid AMP Negative (Negative); Gonococcus By Nucleic Acid AMP Negative (Negative)
== END | disposition home or self-care (01) ==
PROVIDERS: Advanced Practice Midwife; Referring Provider Nurse Practitioner Women's Health; Visit Provider Nurse Practitioner Women's Health
DX: O23.40 Unspecified infection of urinary tract in pregnancy, unspecified trimester (principal); Z3A.00 Weeks of gestation of pregnancy not specified
CPT/HCPCS: 36415; 84702; 87086; 87491; 87591

== ENCOUNTER → 2023-04-18 | Outpatient (CLI) | payer MEDICAID, SELFPAY | END | disposition home or self-care (01) | LOC: LAB 13:19 | PROVIDERS: Referring Provider Advanced Practice Midwife; Visit Provider Advanced Practice Midwife | DX: Z34.90 Encounter for supervision of normal pregnancy, unspecified, unspecified trimester (principal); Z3A.00 Weeks of gestation of pregnancy not specified | CPT/HCPCS: 36415; 84702 ==

== ENCOUNTER → 2023-04-20 | Outpatient (CLI) | payer MEDICAID, SELFPAY | END | disposition home or self-care (01) | LOC: LAB 09:44 | PROVIDERS: Referring Provider Advanced Practice Midwife; Visit Provider Advanced Practice Midwife | DX: Z34.90 Encounter for supervision of normal pregnancy, unspecified, unspecified trimester (principal); Z3A.00 Weeks of gestation of pregnancy not specified | CPT/HCPCS: 36415; 84702 ==

== ENCOUNTER → 2023-04-24 | Outpatient (CLI) | payer MEDICAID, SELFPAY ==
--- NOTE | 2023-04-24 12:08 | US_ITS ---
STUDY: FIRST TRIMESTER OBSTETRICAL ULTRASOUND REASON FOR EXAM: Female, 23 years old viability LMP: March 03, 2023. TECHNIQUE: Transvaginal TECHNICAL QUALITY: Adequate. PRIOR ULTRASOUND: None. FINDINGS: There is visualization of a single gestational sac in a normal intrauterine position. The mean sac diameter (MSD) measures 2.06 cm, indicating an estimated gestational age (EGA) of 7 weeks, 0 days. The gestational sac shape is within normal limits. Small subchorionic bleed measuring 0.7 cm x 1.3 cm x 1.6 cm. There is a visualized yolk sac. The yolk sac measures 2.3 mm. The placenta is non-visualized. There is visualization of a live embryo. The crown-rump length (CRL) measures 9.5, indicating an estimated gestational age (EGA) of 7 weeks, 1 days. There is demonstrated cardiac activity with a heart rate of 124 bpm. The estimated gestation age (EGA) by LMP is 9 weeks, 3 days. The estimated date of delivery (CHRISTIE) by LMP is November 24, 2023. The estimated gestation age (EGA) by US is 7 weeks, 1 days. The estimated date of delivery (CHRISTIE) by US is December 10, 2023. The uterus measures 9.7 cm x 8.4 cm x 5.4 cm. There is no demonstrated uterine fibroid. The cervix is closed. The right ovary measures 2.9 cm x 1.8 cm x 1.3 cm. There is no right ovarian cyst. There is no visualized right adnexal mass or complex lesion. The left ovary measures 2.7 cm x 2 cm x 1.7 cm. There is no left ovarian cyst. There is no visualized left adnexal mass or complex lesion. There is no fluid in the cul de sac. US/Transvaginal w/Preg US IMPRESSION: Single live intrauterine gestation with a mean gestational age of 7 weeks and 1 day. Small subchorionic bleed measuring 0.7 cm x 1.3 cm x 1.6 cm. Electronically Signed: Santos Burnett MD at 15:35 EST ,
== END | disposition home or self-care (01) ==
LOC: US 12:07
PROVIDERS: Referring Provider Obstetrics & Gynecology; Visit Provider Obstetrics & Gynecology
DX: O09.91 Supervision of high risk pregnancy, unspecified, first trimester (principal); Z3A.00 Weeks of gestation of pregnancy not specified
CPT/HCPCS: 76817

== ENCOUNTER → 2023-05-14 | Outpatient (CLI) | payer MEDICAID, SELFPAY ==
--- OUTSIDE RECORDS SUMMARY | 2023-05-14 11:59 | XMS RPT_ITS | CCD ---
Author Name Unknown Address [facility] [address] [place] [address] Organization [facility] Care Team Providers Care Accounting File Clerk Name Role Phone GEOVANNY CLINTON Unavailable Unavailable NO FAMILY PHYSICIAN, [phone] Unavailable Unavail able ANASTACIO SUERO Primary Care Unavailable Results Test Name Value Interpretation Reference Range Facil ity Encounters Encounter Date Encounter Type Care Provider Facility Start: 12-07-2022 Emergency department patient visit ANASTACIO SUERO Facility:[facility] Start: 03-03-2017 End: 03-04-2017 Emergency department patient visit GEOVANNY CLINTON Facility:[id number] Payers Date Payer Category Payer Medicaid [id number] Summary Purpose Family History No Family History Records FoundNo Family History Records FoundNo Family History Records FoundNo Family History Records FoundNo Family History Records Found Advance Directives No Advanced Directives Records FoundNo Advanced Directives Records FoundNo Advanced Directives Records FoundNo Advanced Directives Records FoundNo Advanced Directives Records Found Procedure Findings Note HNO ID: [id number] Author: Candelario Mensah Service: Gynecology Author Type: Physician Type: Brief Op Note Filed: 11/27/2018 12:38 PM Note Text: BRIEF OPERATIVE / PROCEDURE NOTE LOG ID: [id number] SURGERY/PROCEDURE DATE: 11/27/2018 INCISION/PROCEDURE START TIME: 11:50 AM INCISION CLOSE/PROCEDURE END TIME: 12:13 PM SURGEON(S)/PROCEDURALIST(S) AND SCALEMAN(S): Surgeon(s) and Role: * Joe Mensah - Primary Registered Nurse Event Services Manager: Sahara (Rn) JANNA Hill; Shameka (Rn) JANNA Garcia SURGERY/PROCEDURE(S): Dx laparoscopy, fulguration of endometriosis ANESTHESIA: General FINDINGS: Normal uterus, ovaries and tubes. Minimal endometriosis on right uterosacral ligament and anterior cul-de-sac ESTIMATED BLOOD LOSS: 5 mls SPECIMENS: None COMPLICATIONS: None PRE-OP/PRE-PROCEDURE DIAGNOSIS: Pelvic pain POST-OP/POST-PROCEDURE DIAGNOSIS: endometriosis SIGNATURE: Joe Mensah MD PATIENT NAME: Kimani Pandya DATE: November 27, 2018 TIME: 12:31 PM PAGER/CONTACT #: Note HNO ID: [id number] Author: Candelario Mensah Service: Gynecology Author Type: Physician Type: Discharge Summary Filed: 11/27/2018 12:31 PM Note Text: POST-OPERATIVE INSTRUCTIONS FOR LAPAROSCOPIC SURGERY - Recovery from surgery is generally 2-4 weeks, but sometimes longer for more strenuous activity. It is normal to be very tired during this time. - It is OK to climb stairs as tolerated. - No driving while you are taking narcotic pain medication, or until you feel that you are ready. It is okay to ride in a car after surgery. Please wear your seatbelt. - You may return to work when directed by your physician. Please contact your doctor if you need any return to work letters or medical leave paperwork to be completed. - You will most likely experience gas pain, abdominal swelling, or shoulder pain for 24-72 hours after surgery. This is from the carbon dioxide gas put into your abdomen to better visualize your organs. A warm shower, heating pad, and/or walking may help. - You will be given (more content not included)... Hospital Course Note HNO ID: [id number] Author: Candelario Mensah Service: Gynecology Author Type: Physician Type: Discharge Summary Filed: 11/27/2018 12:31 PM Note Text: POST-OPERATIVE INSTRUCTIONS FOR LAPAROSCOPIC SURGERY - Recovery from surgery is generally 2-4 weeks, but sometimes longer for more strenuous activity. It is normal to be very tired during this time. - It is OK to climb stairs as tolerated. - No driving while you are taking narcotic pain medication, or until you feel that you are ready. It is okay to ride in a car after surgery. Please wear your seatbelt. - You may return to work when directed by your physician. Please contact your doctor if you need any return to work letters or medical leave paperwork to be completed. - You will most likely experience gas pain, abdominal swelling, or shoulder pain for 24-72 hours after surgery. This is from the carbon dioxide gas put into your abdomen to better visualize your organs. A warm shower, heating pad, and/or walking may help. - You will be given (more content not included)... Additional Source Comments INFORMATION SOURCE (unrecogn ized section and content) DATE CREATED AUTHOR AUTHOR'S ORGANIZ ATION 11/28/2018 [facility] DATE CREATED AUTHOR AUTHOR'S ORGANIZ ATION 06/02/2019 [facility] DATE CREATED AUTHOR AUTHOR'S ORGANIZ ATION 05/30/2020 [facility] DATE CREATED AUTHOR AUTHOR'S ORGANIZ ATION 12/14/2022 [facility] FOR RECORDS PERTAINING TO PATIENTS WHO ARE OR HAVE BEEN ENROLLED IN A CHEMICAL DEPENDENCY/SUBSTANCEABUSE PROGRAM, SOME INFORMATION MAY BE OMITTED. This clinical summary was aggregated from multiple sources. Caution should be exercised in using it in the provision of clinical care. This summary normalizes information from multiple sources, and as a consequence, information in this document may materially change the coding, format and clinical context of patient data. In addition, data may be omitted in some cases. CLINICAL DECISIONS SHOULD BE BASED ON THE PRIMARY CLINICAL RECORDS. [employer] provides no warranty or guarantee of the accuracy or completeness of information in this document.
[2023-05-14 12:07] LABS: NATERA MAILED SPECIMEN
== END | disposition home or self-care (01) ==
LOC: LAB 11:03
PROVIDERS: Referring Provider Registered Nurse; Visit Provider Registered Nurse
DX: Z34.81 Encounter for supervision of other normal pregnancy, first trimester (principal); Z3A.00 Weeks of gestation of pregnancy not specified
CPT/HCPCS: 36415

== ENCOUNTER 2023-05-20 19:46 | Emergency (ER) | payer MEDICAID, SELFPAY ==
[2023-05-20 19:48] VITALS: BP 117/76; PULSE 80; RESP 18; TEMP 36.2; O2SAT 100; BMI 22.2
--- OUTSIDE RECORDS SUMMARY | 2023-05-20 21:08 | XMS RPT_ITS | CCD ---
Author Name Unknown Address [facility] [address] [place] [address] Organization [facility] Care Team Providers Care Inhalation Therapy Aide Name Role Phone GEOVANNY CLINTON Unavailable Unavailable NO FAMILY PHYSICIAN, 837 Unavailable Unavail able ANASTACIO SUERO Primary Care Unavailable Results Test Name Value Interpretation Reference Range Facil ity Encounters Encounter Date Encounter Type Care Provider Facility Start: 12-07-2022 Emergency department patient visit ANASTACIO SUERO Facility:[facility] Start: 03-03-2017 End: 03-04-2017 Emergency department patient visit GEOVANNY CLINTON Facility:[id number] Payers Date Payer Category Payer Medicaid [id number] Summary Purpose Family History No Family History Records FoundNo Family History Records FoundNo Family History Records FoundNo Family History Records FoundNo Family History Records Found Advance Directives No Advanced Directives Records FoundNo Advanced Directives Records FoundNo Advanced Directives Records FoundNo Advanced Directives Records FoundNo Advanced Directives Records Found Procedure Findings Note HNO ID: [id number] Author: Candelario Mensah Service: Gynecology Author Type: Physician Type: Brief Op Note Filed: 11/27/2018 12:38 PM Note Text: BRIEF OPERATIVE / PROCEDURE NOTE LOG ID: [id number] SURGERY/PROCEDURE DATE: 11/27/2018 INCISION/PROCEDURE START TIME: 11:50 AM INCISION CLOSE/PROCEDURE END TIME: 12:13 PM SURGEON(S)/PROCEDURALIST(S) AND DEPUTY DIRECTOR OF PUBLIC WORKS(S): Surgeon(s) and Role: * Joe Mensah - Primary Registered Nurse Microfilm Duplicating Unit Supervisor: Sahara (Rn) JANNA Hill; Shameka (Rn) JANNA [...] 12:31 PM PAGER/CONTACT #: Note HNO ID: [id number] Author: Candelario Mensah Service: Gynecology Author Type: [...] not included)... Hospital Course Note HNO ID: [id number] Author: Candelario Mensah Service: Gynecology Author Type: [...] DATE CREATED AUTHOR AUTHOR'S ORGANIZ ATION 11/28/2018 [facility] DATE CREATED AUTHOR AUTHOR'S ORGANIZ ATION 06/02/2019 [facility] DATE CREATED AUTHOR AUTHOR'S ORGANIZ ATION 05/30/2020 [facility] DATE CREATED AUTHOR AUTHOR'S ORGANIZ ATION 12/14/2022 [facility] FOR RECORDS PERTAINING TO PATIENTS WHO ARE [...] BE BASED ON THE PRIMARY CLINICAL RECORDS. [employer] provides no warranty or guarantee of the accuracy or completeness of information in this document.
== END 2023-05-20 20:20 | disposition left against medical advice (07) ==
LOC: ED 20:59
DX: Z53.21 Procedure and treatment not carried out due to patient leaving prior to being seen by health care provider (principal)

== ENCOUNTER 2023-05-22 10:45 | Day surgery (SDC) | payer MEDICAID, SELFPAY ==
[2023-05-22] VITALS (9 sets, daily range): BP systolic 88–102; BP diastolic 53–68; PULSE 68–77; RESP 16; TEMP 36.6–37.3; O2SAT 97–100; BMI 21.9
[2023-05-22] MEDS: Lactated Ringers 1,000 ML 15 ML IV (11:28)
[2023-05-22] MEDS: Doxycycline 100 MG CAPSULE PO (11:29)
[2023-05-22 11:41] LABS: Hematocrit 37.5 % (37-47); Hemoglobin 12.7 g/dL (12.0-15.0); Mean Corp Hgb Conc 33.9 g/dL (32-36); Mean Corpuscular Hgb 31.2 pg (27.0-32.0); Mean Corpuscular Volume 92.1 fL (81-99); Mean Platelet Vol. 11.1 fl (6.2-12.0); Platelet Count 141 K/mm3 (150-450); RBC Distribution Width CV 12.5 % (11.6-14.6); RBC Distribution Width SD 42.1 fl (35.1-43.9); Red Blood Count 4.07 M/mm3 (4.2-5.4); White Blood Count 10.2 K/mm3 (4.4-11.0)
[2023-05-22] MEDS: Ondansetron 4 MG/2 ML Vial IV (12:37)
--- NOTE | 2023-05-22 12:43 | PCM.HP.BLA ---
History and Physical Date of Admission: 05/22/23 Intake Vital Signs 05/20/2418:48 05/21/2412:59 05/21/2413:00 Height 5 ft 4 in 5 ft 4 in 5 ft 4 in Weight: 129 lb 8 oz BMI 22.2 BP 124/78 H Intake Visit Reasons: Discuss options Recreation Programmer Required: No Is patient in pain?: No Allergies No Known Allergies Allergy (Verified 05/21/23 14:00) Medications cranberry 1,000 mg capsule 1,000 mg PO DAILY 12/31/22 [History Confirmed 05/21/23] docosahexaenoic acid 200 mg capsule ( DHA) mg PO 04/02/23 [History Confirmed 05/21/23] Post menopausal: No Patient : No : No PFSH Medical History Anxiety and depression Fatigue History of stress test Left renal stone Low iron Marijuana use Migraine headache Pilonidal cyst depression Vaginal delivery Vapes nicotine containing substance Surgical History History of laparoscopy Hx of wisdom tooth extraction Family History Father Arthritis Diabetes Hypertension High cholesterolMother Arthritis Hypertension Lupus Social History household members: spouse and children housing: house number of children: 2 current occupational status: employed current occupation: [employer] current occupational exposures/hazards: No pets and animals: Yes (2) pets and animals: dog(s) history of recent travel: No sexually active: Yes Smoking Status: Former smoker quit date: 07/16/17 second hand exposure: No alcohol intake: never substance use type: does not use diet: lactose free well-balanced diet: about half the time caffeine: No eating out: 1-3 times/week during the past year weight has: decreased > 10 lbs what type of physical activity do you participate in: none seatbelt use: always do you feel safe at home: Yes 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 history: [place]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 She went there late last night when noticed was bleeding and ultrasound was performed showing no heart tones. She is tearful today but states that the bleeding has slowed down. History 3 Elective abortions Hx Para 2 Spontaneous abortions Hx # Term Pregnancies 2 Ectopic pregnancies Hx # Pregnancies Multiple births # of living children 2 Past Pregnancies Del. Date Name GA/Weeks Outcome Route Bth Weight Gen Labor Lgth Anesthesia Del Locatn Provider FOB 03/24/18 [place] 40 live - full term 7lbs 5oz Male 12 hours epidural [facility] SM 10/27/20 Thaddeus 40 live - full term 7lbs 14oz Male epidural [facility] Marcanthony Delivery Date: 03/24/18 Last Updated by: Tammy Singletary dec- internal monitor used. ROS Const ROS Unobtainable: All systems reviewed & are unremarkable except as noted in H Resp Resp: Reports system reviewed and no additional complaints, except as documented; Denies cough GI GI: Reports as per HPI Psych Psych: Reports system reviewed and no additional complaints, except as documented Exam Const General: cooperative, healthy appearing, comfortable and no acute distress Resp Effort & Inspection: normal respiratory effort General: bimanual renal exam normal bilaterally External Female Exam: normal appearance of the urethra Urethra: normal appearance of the urethra Speculum Exam - Vagina: normal appearance of the vagina and vaginal bleeding Speculum Exam - Cervix: normal appearance of the cervix Bimanual Exam- Adnexa, other: normal adnexae and normal Pelvic Support: normal OB/External & Speculum: vaginal bleeding Speculum Exam: vaginal bleeding Other: ultrasound shows a 7 week 6 day iup without heart tones. Skin General: no rashes or lesions noted Psych Appearance: grossly normal Speech and Movement: speech and movement normal Coding Level of Care Code Off vis,est,level 4 Diagnoses Incomplete O03.4 Assessment and Plan Assessment and Plan (1) Incomplete : Status: Acute Plan: After discussing the patient's diagnosis and treatment plan options, patient wishes to proceed with surgical management. I have discussed with the patient the risks, benefits, and alternatives of the procedure which include but are not limited to risks of anesthesia, bleeding, infection, possible damage to bowel, bladder, or surrounding vasculature which could lead to additional surgery to evaluate any complications. Patient agrees to procedure and wishes to proceed. ACOG/uptodate references given for additional information regarding procedure. plan for suction dilation and curettage. patient declines Anora testing.
--- NOTE | 2023-05-22 12:45 | POC_PTH ---
PATHOLOGY RESULTS PATIENT: FELICIA VICTOR LOC: [facility] [place] U#:[id number] AGE/SX: 23/ ROOM: RE05/22/[address]: Dr. Palmira Duncan DO : 2000 BED: DIS: 05/22/2023 SPEC #: [id number] RECD: 05/23/23 08:10 STATUS: JOSLYN ELIER #: [id number] TAURUS: 05/22/23 12:[address]: Palmira Duncan DEPT: SURGICAL PATHOLOGY RECD BY: Opal Ayon ENTERED: 05/23/23 08:11 SP TYPE: PROD CONC OTHR DR: No Primary Care Phys Tissues: Product of conception, NOS Procedures: Surgery Specimen Level IV HEADER OPERATION: Suction dilation and curettage PRE-OP DIAGNOSIS: Incomplete TISSUE SUBMITTED: Products of conception MICROSCOPIC DIAGNOSIS Endometrium, curettage: Chorionic villi, decidualized stroma and trophoblastic cells (products of conception). AM:rashawn 05/24/2023 MICROSCOPIC DESCRIPTION Slides are reviewed. GROSS DESCRIPTION Received in fixative is one container labeled with the patient's name and designated products of conception. The specimen consists of multiple irregular fragments of light to dark guerra soft tissue that in aggregate measure 9.0 x 6.0 x 1.0 cm. parts are not grossly recognized. Window Trimmer Apprentice portions are submitted in one cassette. / AM:rashawn 05/23/2023 TC:5 CPT: 34332
--- NOTE | 2023-05-22 13:02 | DCINST_ITS ---
Discharge Instructions Diet Discharge Diet: No restrictions Activity Discharge Activity: Return to Normal Activity, May Shower and May Take a Tub Bath (after 1 week) May resume sexual activity in: 1-2 weeks Weight Bearing Status: Weight bearing as tolerated Lifting Restrictions: none Dressing / Incision Call your doctor if you observe: Fever of 101 or Higher, Using more than 1 pad per hour, Shortness of breath and Uncontrolled pain Follow Up Care Please Follow Up With: Palmira Duncan DO When: Call [phone] to schedule appointment. Test Results: Test results from this visit will be discussed in further detail at your follow- up appointment, if applicable. Discharge Plan Admission Primary Reason for Your Visit: dilation and curettage Attending Provider: Palmira Duncan Primary Care Provider: Care Physician,Jennifer Primary Discharge Orders/Prescriptions Prescriptions: New ibuprofen 800 mg tablet 800 mg PO Q8H PRN (Reason: pain) Qty: 30 0RF oxycodone-acetaminophen [Percocet] 5-325 mg tablet 1 tab PO Q4H PRN (Reason: pain) 7 Days Qty: 10 0RF Rx Instructions: 1-2 tabs q 4 hrs as needed for pain No Action DHA 200 mg capsule 200 mg PO DAILY Referrals / Follow Up: Care Physician,Jennifer Primary [Primary Care Provider] - Disposition Disposition (needs filled in before D/C Order can be placed): Home, Self Care
[2023-05-22] MEDS: Lidocaine 1% (20 ml mdv) 20 ML Vial (14:04)
--- NOTE | 2023-05-22 14:08 | OP.PCM_ITS ---
Problems Associated Problem List Diagnoses (1) Incomplete : Report of Operation Date of Procedure: 05/22/23 Pre-Operative Diagnosis: 7 week 6 day missed Post-Operative Diagnosis: 7 week 6 day missed Surgery/Procedure Performed:: suction dilation and curettage Description of Surgical Findings:: 10 cm uterus, normal cervix. moderate products of conception Surgeon: Palmira Duncan restaurant delivery driver: None Type of Anesthesia: MAC/Supplemental/Local Anesthesiologist: Francisco Muñoz Specimen's removed: products of conception Estimated Blood Loss (mL): 50cc Description of Procedure: Patient was taken to the operating room and placed under MAC local anesthesia. She was prepped and draped in the normal sterile fashion the dorsal lithotomy position. Bladder was drained of clear urine and anterior lip of the cervix was grasped and the uterus sounded to 10 cm. Cervix was progressively dilated to allow passage of a 9mm suction curette. Progressive passes were made removing the retained products of conception without complication. Sharp curettage confirmed complete removal of the retained products. All instruments were removed from the vagina and excellent hemostasis was noted and the patient was taken to recovery in stable condition. Procedure Start Time: 13:56 Procedure Stop Time: 14:06 Complications none Admit VTE Documentation VTE Present on Admission: No VTE Mechan Device Prophylaxis: SCD's VTE Pharm Prophylaxis ordered?: No Multi Select Codes Urinary/Genital Urinary/Genital CPT Codes: 31209 Surg Trtmt missed Ab 1TM
== END 2023-05-22 15:50 | disposition home or self-care (01) ==
LOC: SDC 10:46 → AC 10:46
PROVIDERS: Referring Provider Obstetrics & Gynecology; Visit Provider Obstetrics & Gynecology
PROC: (CPT 59820; principal; 2023-05-22 12:30)
DX: O03.4 Incomplete spontaneous abortion without complication (principal); O02.1 Missed abortion; Z87.891 Personal history of nicotine dependence
CPT/HCPCS: 59820; 01965; 85027; 86850; 86900; 86901; 88305; J7120; J2405

== ENCOUNTER → 2023-07-06 | Outpatient (CLI) | payer MEDICAID, SELFPAY ==
--- OUTSIDE RECORDS SUMMARY | 2023-07-06 08:18 | XMS RPT_ITS | CCD ---
Author Name Unknown Address [address] [place] [address] Organization [facility] Care Team Providers Care Magnet Maker Name Role Phone GEOVANNY CLINTON Unavailable Unavailable NO FAMILY PHYSICIAN, 837 Unavailable Unavail able ANASTACIO SUERO Primary Care Unavailable PHYSICIAN, NONE Primary Care Physician Unavailab mariza GRAVES MD, BROWN Attending Unavailable PHYSICIAN, NONE Primary Care Unavailable Medications Current Medications Medication Drug Class(es) Dates Sig (Normalized) Sig (Original) cephalexin 500 mg oral tablet (1 source) Cephalosporin Antibacterial Start: 05-20-2023 End: 05-27-2023 cephalexin 500 mg oral tablet Dose : 500 mg = 1 tab(s), PO, BID, X 7 day(s), # 14 tab(s), 0 Refill(s), 05/27/23 9:14:00 PM EST Start Date: 05/20/23 Stop Date: 05/27/23 Status: Ordered Problems Problem Classification Problem Date Documented Da te Episodic/Chronic Other and delivery including normal (1 source) 05-20-2023 Episodic Results Test Name Value Interpretation Reference Range Facil ity Vital Signs Date Time Vital Sign Value Performing Clinician Faci lity 05-20-2023 22:33-0500 Heart rate 88 /min BROWN GRAVES MD [facility] 05-20-2023 22:33-0500 Respiratory rate 18 /min BROWN GRAVES MD [facility] 05-20-2023 20:25-0500 Body temperature 98.06 [degF] BROWN GRAVES MD [facility] 05-20-2023 20:25-0500 Diastolic Blood Pressure Non-Invasive 81 mm[Hg] BROWN GRAVES MD [facility] 05-20-2023 20:25-0500 Heart rate 102 /min BROWN GRAVES MD [facility] 05-20-2023 20:25-0500 Respiratory rate 16 /min BROWN GRAVES MD [facility] 05-20-2023 20:25-0500 Systolic Blood Pressure Non-Invasive 131 mm[Hg] BROWN GRAVES MD [facility] Encounters Encounter Date Encounter Type Care Provider Facility Start: 05-20-2023 End: 05-21-2023 Emergency department patient visit BROWN GRAVES MD Facility:B Start: 05-20-2023 End: 05-20-2023 Emergency department patient visit BROWN GRAVES MD [facility] Start: 12-07-2022 Emergency department patient visit ANASTACIO SUERO Facility:[facility] Start: 03-03-2017 End: 03-04-2017 Emergency department [facility] Facility[facility] Payers Date Payer Category Payer Medicaid [id number] 2000 Unknown [id number] Social History Date Type Detail Facility Tobacco smoking status No Smoking Status Entered [facility] Sex Assigned At Female [facility] Functional Status Date Assessment Result Facility 05-20-2023 Functional Status ID band on, Call device within reach, Bed in low position [facility] Mental Status Date Assessment Result Facility 05-20-2023 Mental Status Orientation Oriented x 4 [facility] 05-20-2023 Mental Status [facility] Clinical Note 05-22-2023 Note Date & Type Note Facility 05-22-2023 Note . MICRO - Microbiology PROCEDURE: Urine Culture [*1] SOURCE: Urine, Clean Catch BODY SITE: COLLECTED DATE/TIME: 05/20/2023 21:05 EST RECEIVED DATE/TIME: 05/21/2023 14:45 EST START DATE/TIME: 05/21/2023 14:46 EST FREE TEXT SOURCE: FINAL REPORTS Final Report [] Verified Date/Time/Personnel: 05/22/2023 14:23 EST >100,000 cfu/ml Multiple bacterial morphotypes present. Probable Contamination. Suggest recollection if clinically indicated. Performing Locations *1: This test was performed at: [facility], [address] [place] [address], [facility] , [facility] Discharge instructions 05-21-2023 Note Date & Type Note Facility 05-21-2023 Hospital Discharg e instructions Patient Education 05/20/2023 22:21:48 Missed Miscarriage Missed Miscarriage Today's exams show your has ended suddenly. This can be emotionally difficult. There is little that can be done to change the way you feel. But understand that miscarriages are common. About 1 or 2 out of every [address] Some even end before you know you are . This happens for a number of reasons, and usually the cause is never known. It s important you know that it is not your fault. It didn t happen because you did anything wrong. Having sex or exercising does not cause a miscarriage. These activities are usually safe unless you have pain or bleeding or your doctor tells you to stop. Even minor falls won t cause a miscarriage. Miscarriages happen because things were not developing as they were supposed to. You still have some tissue from the in your uterus. Because of this, you may have some bleeding. It might be light spotting or as heavy as a period. You may also have some cramping. Usually all of the tissue will pass out by itself and nothing else needs to be done. But sometimes tissue stays in the uterus. In that case, it must be removed to stop bleeding and prevent infection. After you have recovered, you should still be able to get again. But before trying, talk with your healthcare provider. Home care Follow these tips to take of yourself at home: You can go back to your normal activities if you don t have heavy bleeding or pain. You may have some cramping and bleeding, but it shouldn t be severe. Until the bleeding stops completely and to prevent infection: Don t have sex until your healthcare provider says it s OK Use sanitary napkins instead of tampons. Don t douche. Having a miscarriage can be very difficult emotionally. It is natural to feel sadness or grief. It may help to talk about your feelings with family and friends, or with a counselor. Follow-up care Follow up with your healthcare provider, or as advised. You may pass tissue. If you see anything, it may appear as a 1-inch or larger piece of louis or pink flesh. If tissue has not passed from your vagina within the next 5 days, you need to see your healthcare provider for another exam. To prevent infection in the uterus, your provider might need to take out the tissue by surgery. Or you may be given medicine to take at home to help your body expel the rest of the tissue. If you had an ultrasound, a radiologist will review it. You will be told of any new findings that may affect your care. Call 911 Call 911 if you have: Severe pain and very heavy bleeding Severe lightheadedness, passing out, or fainting Rapid heart rate Difficulty breathing Confusion or difficulty waking up When to seek medical advice Call your healthcare provider right away if any of these occur: Heavy bleeding. This means soaking 1 new pad an hour over 3 hours. Foul-smelling vaginal discharge Fever of 100.4 F (38 C) or higher, or as directed by your healthcare provider Pain in your lower belly (abdomen) that gets worse Weakness or dizziness Passage of anything that resembles tissue. This would be pink or grayish membrane or solid material. Save the tissue in a clean container and bring it to your provider. 9587-1916 [employer]. [address] [place] [address], [place] [address]. All rights reserved. This information is not intended as a substitute for professional medical care. Always follow your healthcare professional's instructions. 05/20/2023 22:18:28 Urinary Tract Infections in Women Urinary Tract Infections in Women Urinary tract infections (UTIs) are most often caused by bacteria. These bacteria enter the urinary tract. The bacteria may come from outside the body. Or they may travel from the skin outside the rectum or vagina into the urethra. Female anatomy makes it easy for bacteria from the bowel to enter a woman s urinary tract, which is the most common source of UTI. This means women develop UTIs more often than men. Pain in or around the urinary tract is a common UTI symptom. But the only way to know for sure if you have a UTI for the healthcare provider to test your urine. The two tests that may be done are the urinalysis and urine culture. Types of UTIs Cystitis. A bladder infection (cystitis) is the most common UTI in women. You may have urgent or frequent urination. You may also have pain, burning when you urinate, and bloody urine. Urethritis. This is an inflamed urethra, which is the tube that carries urine from the bladder to outside the body. You may have lower stomach or back pain. You may also have urgent or frequent urination. Pyelonephritis. This is a kidney infection. If not treated, it can be serious and damage your kidneys. In severe cases, you may need to stay in the hospital. You may have a fever and lower back pain. Medicines to treat a UTI Most UTIs are treated with antibiotics. These kill the bacteria. The length of time you need to take them depends on the type of infection. It may be as short as 3 days. If you have repeated UTIs, you may need a low-dose antibiotic for several months. Take antibiotics exactly as directed. Don t stop taking them until all of the medicine is gone. If you stop taking the antibiotic too soon, the infection may not go away. You may also develop a resistance to the antibiotic. This can make it much harder to treat. Lifestyle changes to treat and prevent UTIs The lifestyle changes below will help get rid of your UTI. They may also help prevent future UTIs. Drink plenty of fluids. This includes water, juice, or other caffeine-free drinks. Fluids help flush bacteria out of your body. Empty your bladder. Always empty your bladder when you feel the urge to urinate. And always urinate before going to sleep. Urine that stays in your bladder can lead to infection. Try to urinate before and after sex as well. Practice good personal hygiene. Wipe yourself from front to back after using the toilet. This helps keep bacteria from getting into the urethra. Use condoms during sex. These help prevent UTIs caused by sexually transmitted bacteria. Also don't use spermicides during sex. These can increase the risk for UTIs. Choose other forms of control instead. For women who tend to get UTIs after sex, a low-dose of a preventive antibiotic may be used. Be sure to discuss this option with your healthcare provider. Follow up with your healthcare provider as directed. He or she may test to make sure the infection has cleared. If needed, more treatment may be started. 8318-3289 [employer]. [address] [place] [address]. All rights reserved. This information is not intended as a substitute for professional medical care. Always follow your healthcare professional's instructions. Follow Up Care 05/20/2023 20:25:22 With:TONY GLORIA Address: [address] [address] [phone] Business (1) When:1-2 days Comments:Schedule appointment for close follow-up.Tylenol for pain as needed.Use antibiotic (cephalexin) to treat presumed UTI.Return to the ED if symptoms worsen. [facility] Clinical Note 05-20-2023 Note Date & Type Note Facility 05-20-2023 Note Discharge Instructions Thank you for allowing [facility] to assist you with your healthcare needs. The following is important discharge information regarding your hospital visit. Diagnosis from Today's Visit Vaginal bleeding - 11 wks What to Do Next Instructions from Your Care Team No qualifying data available. Post Acute Orders No qualifying data available. You Need to Schedule the Following Appointments Follow Up with TONY GLORIA When Within 1-2 days Why: Schedule appointment for close follow-up. Tylenol for pain as needed. Use antibiotic (cephalexin) to treat presumed UTI. Return to the ED if symptoms worsen. Where: [address] [address] [phone] Business (1) Allergies NKA Medications Please ask your primary doctor or pharmacist before taking any other medication not listed, including over the counter drugs, herbal medications, vitamins and or supplements as they may interact with your home medications. What How Much When Instructions Last Dose New cephalexin (cephalexin 500 mg oral tablet) 1 tab(s) by mouth Two (2) times a day Duration: 7 Days Printed Prescription Please take this list to your next doctor s visit. Bring all medications you take, including over the counter medications, herbals and other supplements with you to your doctor s visit. Patients and families are reminded to discard old lists and to update any records with all medication providers or retail pharmacies. Education Materials Missed Miscarriage Today's exams show your has ended suddenly. This can be emotionally difficult. There is little that can be done to change the way you feel. But understand that miscarriages are common. About 1 or 2 out of every [address] Some even end before you know you are . This happens for a number of reasons, and usually the cause is never known. It s important you know that it is not your fault. It didn t happen because you did anything wrong. Having sex or exercising does not cause a miscarriage. These activities are usually safe unless you have pain or bleeding or your doctor tells you to stop. Even minor falls won t cause a miscarriage. Miscarriages happen because things were not developing as they were supposed to. You still have some tissue from the in your uterus. Because of this, you may have some bleeding. It might be light spotting or as heavy as a period. You may also have some cramping. Usually all of the tissue will pass out by itself and nothing else needs to be done. But sometimes tissue stays in the uterus. In that case, it must be removed to stop bleeding and prevent infection. After you have recovered, you should still be able to get again. But before trying, talk with your healthcare provider. Home care Follow these tips to take of yourself at home: You can go back to your normal activities if you don t have heavy bleeding or pain. You may have some cramping and bleeding, but it shouldn t be severe. Until the bleeding stops completely and to prevent infection: Don t have sex until your healthcare provider says it s OK Use sanitary napkins instead of tampons. Don t douche. Having a miscarriage can be very difficult emotionally. It is natural to feel sadness or grief. It may help to talk about your feelings with family and friends, or with a counselor. Follow-up care Follow up with your healthcare provider, or as advised. You may pass tissue. If you see anything, it may appear as a 1-inch or larger piece of louis or pink flesh. If tissue has not passed from your vagina within the next 5 days, you need to see your healthcare provider for another exam. To prevent infection in the uterus, your provider might need to take out the tissue by surgery. Or you may be given medicine to take at home to help your body expel the rest of the tissue. If you had an ultrasound, a radiologist will review it. You will be told of any new findings that may affect your care. Call 911 Call 911 if you have: Severe pain and very heavy bleeding Severe lightheadedness, passing out, or fainting Rapid heart rate Difficulty breathing Confusion or difficulty waking up When to seek medical advice Call your healthcare provider right away if any of these occur: Heavy bleeding. This means soaking 1 new pad an hour over 3 hours. Foul-smelling vaginal discharge Fever of 100.4 F (38 C) or higher, or as directed by your healthcare provider Pain in your lower belly (abdomen) that gets worse Weakness or dizziness Passage of anything that resembles tissue. This would be pink or grayish membrane or solid material. Save the tissue in a clean container and bring it to your provider. 8523-6920 [employer]. [address] [place] [address]. All rights reserved. This information is not intended as a substitute for professional medical care. Always follow your healthcare professional's instructions. Urinary Tract Infections in Women Urinary tract infections (UTIs) are most often caused by bacteria. These bacteria enter the urinary tract. The bacteria may come from outside the body. Or they may travel from the skin outside the rectum or vagina into the urethra. Female anatomy makes it easy for bacteria from the bowel to enter a woman s urinary tract, which is the most common source of UTI. This means women develop UTIs more often than men. Pain in or around the urinary tract is a common UTI symptom. But the only way to know for sure if you have a UTI for the healthcare provider to test your urine. The two tests that may be done are the urinalysis and urine culture. Types of UTIs Cystitis. A bladder infection (cystitis) is the most common UTI in women. You may have urgent or frequent urination. You may also have pain, burning when you urinate, and bloody urine. Urethritis. This is an inflamed urethra, which is the tube that carries urine from the bladder to outside the body. You may have lower stomach or back pain. You may also have urgent or frequent urination. Pyelonephritis. This is a kidney infection. If not treated, it can be serious and damage your kidneys. In severe cases, you may need to stay in the hospital. You may have a fever and lower back pain. Medicines to treat a UTI Most UTIs are treated with antibiotics. These kill the bacteria. The length of time you need to take them depends on the type of infection. It may be as short as 3 days. If you have repeated UTIs, you may need a low-dose antibiotic for several months. Take antibiotics exactly as directed. Don t stop taking them until all of the medicine is gone. If you stop taking the antibiotic too soon, the infection may not go away. You may also develop a resistance to the antibiotic. This can make it much harder to treat. Lifestyle changes to treat and prevent UTIs The lifestyle changes below will help get rid of your UTI. They may also help prevent future UTIs. Drink plenty of fluids. This includes water, juice, or other caffeine-free drinks. Fluids help flush bacteria out of your body. Empty your bladder. Always empty your bladder when you feel the urge to urinate. And always urinate before going to sleep. Urine that stays in your bladder can lead to infection. Try to urinate before and after sex as well. Practice good personal hygiene. Wipe yourself from front to back after using the toilet. This helps keep bacteria from getting into the urethra. Use condoms during sex. These help prevent UTIs caused by sexually transmitted bacteria. Also don't use spermicides during sex. These can increase the risk for UTIs. Choose other forms of control instead. For women who tend to get UTIs after sex, a low-dose of a preventive antibiotic may be used. Be sure to discuss this option with your healthcare provider. Follow up with your healthcare provider as directed. He or she may test to make sure the infection has cleared. If needed, more treatment may be started. 0896-7078 [employer]. [address] [place] [address], [place] [address]. All rights reserved. This information is not intended as a substitute for professional medical care. Always follow your healthcare professional's instructions. Additional Information VACCINATE! IT SAVES LIVES! Members of the community who have not yet received the COVID-19 vaccine and would like to receive it can visit one of [facility] vaccine clinics. There are many vaccine clinic locations within the [facility]. For locations and available times, please visit www.gettheshot.coronavirus.[place].gov/. It is important to note that some COVID mobile vaccine clinics are held outdoors and may be canceled in rainy or stormy conditions. To learn more about pediatric vaccinations (ages 5-11), we invite you to visit the [employer] webpage. [email or web address]/[email or web address]-Afdhpkgzlha-Frequently-[email or web address] -Questions.html To learn more about the COVID-19 vaccine, we invite you to visit the CDC website for a list of frequently asked questions. https://www.cdc.gov/coronavirus/2019-n cov/vaccines/faq.html [facility] Patient Portal Access Instructions: Stay connected with your healthcare team and access your personal medical information anytime with the [facility] Patient Portal. If you would like a full copy of your medical records please contact the [facility] Medical Records Department Saturday through Saturday between 8a.m. and 4:30p.m. Please follow the directions below to access the portal: 1.Access the email account you provided upon registration to the [facility].2.Look for an invitation email from [facility].3.Open the email and access the invitation link: Accept Invitation to [facility]4.Fill in the required cho to create your account. Sign into www.[email or web address] with your username and password that you created in the above steps to stay up to date. You can then view a summary of results, a summary of your visits, and the ability to download your summaries to your computer or send the information securely to a physician. Remember that your healthcare information is confidential, so carefully consider who you will allow to register on the [facility] Patient Portal for access to your information. You can also access the [facility] Patient Portal on the [employer] daquan. Simply click on Health Records under Health Data and then click on the [employer] logo. HOW TO SAFELY DISPOSE OF PRESCRIPTION MEDICATIONS Please use one of the following methods to safely dispose of your unused medications. 1.Use a drug disposal kit: the drug disposal pouch allows you to safely discard your old and unused drugs. Ask your nurse to give you one when you are discharged.2.Visit a local take-back location: Many local pharmacies and police departments have programs that collect old and unwanted prescription drugs. Call your local pharmacy or go to http://[employer]/4O5Zk9f to find one close to you.3.Make use of household items: Use cat litter or old coffee grounds to dispose medications if other options are not available. Mix your drugs with these household products, seal them in an airtight container and throw it into the garbage. Call [facility]: [phone] to be sure your drugs can be disposed of in this way. Some medicines may require a different approach.4.Never flush your medications down the toilet. IF YOU HAVE BEEN PRESCRIBED AN OPIOIDS FOR PAIN If you have been prescribed an opioid (such as hydrocodone, oxycodone or morphine), it is critical to understand the possible side effects and risks of opioid pain medications. Even when taken as directed, opioids can have several side effects including: Tolerance, meaning you might need to take more of a medication for the same pain relief. Nausea, vomiting and/or constipation. Sleepiness, dizziness, dry mouth, confusion, depression or itching. Physical dependence, meaning you have withdrawal symptoms when a medication is stopped ? this can develop within a few days. KNOW YOUR RESPONSIBILITIES It is important to know exactly how much and how often to take the opioid pain medications you are prescribed. Never take opioids in higher amounts or more often than prescribed. Do not combine opioids with alcohol or other drugs that cause drowsiness, such as benzodiazepines, also known as benzos, including diazepam and alprazolam, muscle relaxants or sleep aids. Never sell or share prescription opioids. This is illegal. Store opioids in a secure place and out of reach of others (including children, family, friends and visitors). The last page(s) of this document has been signed and retained as a CHART COPY Signatures Patient Education Materials Missed Miscarriage Urinary Tract Infections in Women Medication Leaflets My discharge plan and instructions have been reviewed and explained to me and I,KIAMNI VICTOR understand my current condition and have read and understand these discharge instructions. I have received a written copy of the plan/instructions. If I have questions, I am aware that I should contact my doctor. 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 Signature: _ Date/Time: Relationship to Patient: Witness Name/Signature: Date/Time: [facility] Evaluation + Plan note 05-20-2023 Note Date & Type Note Facility 05-20-2023 Evaluation + Plan note Diagnostic Tests PendingUrine Culture 05/20/23 [facility] Hospital course Narrative Note Date & Type Note Facility Hospital course Narrative No data available for this section [facility] Summary Purpose Family History No Family History Records FoundNo Family History Records FoundNo Family History Records FoundNo Family History Records FoundNo Family History Records Found No data available for this section No Family History Records Found Advance Directives No Advanced Directives Records FoundNo Advanced Directives Records FoundNo Advanced Directives Records FoundNo Advanced Directives Records FoundNo Advanced Directives Records FoundNo Advanced Directives Records Found Procedure Findings Note HNO ID: [id number] Author: Candelario Mensah Service: Gynecology Author Type: Physician Type: Brief Op Note Filed: 11/27/2018 12:38 PM Note Text: BRIEF OPERATIVE / PROCEDURE NOTE LOG ID: [id number] SURGERY/PROCEDURE DATE: 11/27/2018 INCISION/PROCEDURE START TIME: 11:50 AM INCISION CLOSE/PROCEDURE END TIME: 12:13 PM SURGEON(S)/PROCEDURALIST(S) AND INTEGRITY ENGINEER(S): Surgeon(s) and Role: * Joe Mensah - Primary Registered Nurse Landscape Laborer: Sahara (Rn) JANNA Hill; Shameka (Rn) JANNA [...] 12:31 PM PAGER/CONTACT #: Note HNO ID: [id number] Author: Candelario Mensah Service: Gynecology Author Type: [...] not included)... Hospital Course Note HNO ID: [id number] Author: Candelario Mensah Service: Gynecology Author Type: [...] DATE CREATED AUTHOR AUTHOR'S ORGANIZ ATION 11/28/2018 [facility] DATE CREATED AUTHOR AUTHOR'S ORGANIZ ATION 06/02/2019 [facility] DATE CREATED AUTHOR AUTHOR'S ORGANIZ ATION 05/30/2020 [facility] DATE CREATED AUTHOR AUTHOR'S ORGANIZ ATION 12/14/2022 [facility] DATE CREATED AUTHOR AUTHOR'S ORGANIZ ATION 05/26/2023 [facility] Patient Care team informatio n (unrecognized section and content) Care Team Personnel Name: PHYSICIAN, NONE Position: Physician Member Role: Primary Care Physician Name: BROWN GRAVES MD Position: ED Physician Member Role: ED Physician Address: Address: [facility] [address] [place], [place] [address] Name: Alisha Red RN Position: AO RN Member Role: ED RN FOR RECORDS PERTAINING TO PATIENTS WHO ARE [...] BE BASED ON THE PRIMARY CLINICAL RECORDS. [employer] [facility]. provides no warranty or guarantee of the accuracy or completeness of information in this document.
[2023-07-06 10:03] LABS: hCG Titer Quant., Serum < 1 mIU/mL (1-3)
== END | disposition home or self-care (01) ==
LOC: LAB 08:15
PROVIDERS: Referring Provider Obstetrics & Gynecology; Visit Provider Obstetrics & Gynecology
DX: N91.2 Amenorrhea, unspecified (principal)
CPT/HCPCS: 36415; 84702

== ENCOUNTER → 2023-07-23 | Outpatient (CLI) | payer MEDICAID, SELFPAY ==
[2023-07-23 11:21] LABS: Absolute Lymphocyte Count 2.08 X10^3/uL (0.83-4.51); Absolute Neutrophil Count 2.8 X10^3/uL (2.0-7.7); Basophil# 0.05 X10^3/uL; Basophil% 0.9 % (0-1); Eosinophil# 0.17 X10^3/uL; Hematocrit 40.5 % (37-47); Hemoglobin 13.6 g/dL (12.0-15.0); Lymphocyte # 2.08 X10^3/ul (0.83-4.51); Lymphocyte % 37.1 % (19-41); Mean Corp Hgb Conc 33.6 g/dL (32-36); Mean Corpuscular Hgb 29.8 pg (27.0-32.0); Mean Corpuscular Volume 88.6 fL (81-99); Monocyte# 0.47 X10^3/uL; Monocyte% 8.4 % (0-10); NRBC Flagged by Analyzer 0 % (0-5); Neutrophil # 2.83 X10^3/uL (2.7-7.7); Neutrophil % 50.4 % (47-70); Platelet Count 150 K/mm3 (150-450); RBC Distribution Width CV 11.7 % (11.6-14.6); RBC Distribution Width SD 37.2 fl (35.1-43.9); Red Blood Count 4.57 M/mm3 (4.2-5.4); White Blood Count 5.6 K/mm3 (4.4-11.0)
[2023-07-23 11:47] LABS: hCG Titer Quant., Serum 265 mIU/mL (1-3)
[2023-07-23 12:26] LABS: HIV - WCH Non-Reactive (Nonreactive); Hepatitis B Surface Antigen Non-Reactive (Nonreactive); Hepatitis C Antibody Non-Reactive (Nonreactive); Rubella IgG Reactive (Nonreactive); Syphilis Antibodies Non-reactive
== END | disposition home or self-care (01) ==
LOC: LAB 10:52
PROVIDERS: Nurse Practitioner Women's Health; Referring Provider Obstetrics & Gynecology; Visit Provider Obstetrics & Gynecology
DX: N91.2 Amenorrhea, unspecified (principal)
CPT/HCPCS: 36415; 84702; 85025; 86703; 86762; 86780; 86803; 86850; 86900; 86901; 87340

== ENCOUNTER → 2023-07-25 | Outpatient (CLI) | payer MEDICAID, SELFPAY ==
[2023-07-25 10:55] LABS: hCG Titer Quant., Serum 570 mIU/mL (1-3)
== END | disposition home or self-care (01) ==
LOC: LAB 09:55
PROVIDERS: Referring Provider Obstetrics & Gynecology; Visit Provider Obstetrics & Gynecology
DX: N91.2 Amenorrhea, unspecified (principal)
CPT/HCPCS: 36415; 84702

== ENCOUNTER 2023-07-29 14:17 | Emergency (ER) | payer MEDICAID, SELFPAY ==
[2023-07-29 14:17] VITALS: BP 126/87; PULSE 63; RESP 14; TEMP 36.2; O2SAT 99; BMI 20.5
--- NOTE | 2023-07-29 14:48 | US_ITS ---
STUDY: FIRST TRIMESTER OBSTETRICAL ULTRASOUND REASON FOR EXAM: Female, 23 years old RLQ pain LMP: March 27, 2024. TECHNIQUE: Transvaginal TECHNICAL QUALITY: Adequate. PRIOR ULTRASOUND: None. FINDINGS: There is visualization of a single gestational sac in a normal intrauterine position. The mean sac diameter (MSD) measures 6.9 mm, indicating an estimated gestational age (EGA) of 5 weeks, 3 days. The gestational sac shape is within normal limits. There is a visualized yolk sac. The yolk sac measures 1.7 mm. The placenta is non-visualized. There is no demonstrated embryo ( pole). The estimated gestation age (EGA) by LMP is 5 weeks, 3 days. The estimated date of delivery (CHRISTIE) by LMP is March 27, 2024. The estimated gestation age (EGA) by US is 5 weeks, 3 days. The estimated date of delivery (CHRISTIE) by US is March 27, 2024. The uterus measures 9.7 cm x 8 cm x 5.3 cm. 9 mm x 5 mm x 3 mm fluid collection surrounding the gestational sac There is no demonstrated uterine fibroid. The cervix is closed. The right ovary measures 2.3 cm x 1.2 cm x 1.5 cm. There is no right ovarian cyst. There is no visualized right adnexal mass or complex lesion. The left ovary measures 3 cm x 2.5 cm x 1.6 cm. There is a dominant 2.1 cm x 1.9 cm x 1.4 cm ovarian follicle. There is no visualized left adnexal mass or complex lesion. There is no fluid in the cul de sac. US/Transvaginal w/Preg US IMPRESSION: Intrauterine gestation with mean gestational age of 5 weeks and 3 days. No pole is seen at this time. Dominant follicle in the left ovary. Electronically Signed: Santos Burnett MD at 16:04 EDT ,
[2023-07-29 15:01] LABS: Mucous, Urine 0 SEEN /hpf (<or=2+); Red Blood Cells-Urine 0 SEEN /hpf (0-5)
[2023-07-29 15:02] LABS: Color, Urine Yellow (Yellow); Glucose, Dipstick Normal (Normal); Ketone-Dipstick Negative (Negative); Leukocyte Esterase-Dipstick 25 /ul (Negative); Nitrite-Dipstick Negative (Negative); Occult Blood-Urine Negative /ul (Negative); Protein-Dipstick 30 mg/dl (Negative); Specific Gravity, Urine 1.015 (1.002-1.030); Urine Bilirubin Dipstick Negative (Negative); Urine Clarity Clear (Clear); Urine Urobilinogen 1 mg/dl (Normal)
[2023-07-29 15:03] LABS: Absolute Lymphocyte Count 2.16 X10^3/uL (0.83-4.51); Absolute Neutrophil Count 3.4 X10^3/uL (2.0-7.7); Basophil# 0.05 X10^3/uL; Basophil% 0.8 % (0-1); Eosinophils% 1.6 % (0-5); Hematocrit 40.8 % (37-47); Hemoglobin 13.9 g/dL (12.0-15.0); Lymphocyte # 2.16 X10^3/ul (0.83-4.51); Lymphocyte % 35.4 % (19-41); Mean Corp Hgb Conc 34.1 g/dL (32-36); Mean Corpuscular Hgb 30.3 pg (27.0-32.0); Mean Corpuscular Volume 88.9 fL (81-99); Mean Platelet Vol. 11.3 fl (6.2-12.0); Monocyte# 0.37 X10^3/uL; Monocyte% 6.1 % (0-10); NRBC Flagged by Analyzer 0 % (0-5); Neutrophil # 3.42 X10^3/uL (2.7-7.7); Neutrophil % 55.9 % (47-70); Platelet Count 129 K/mm3 (150-450); RBC Distribution Width CV 11.8 % (11.6-14.6); RBC Distribution Width SD 37.3 fl (35.1-43.9); Red Blood Count 4.59 M/mm3 (4.2-5.4); White Blood Count 6.1 K/mm3 (4.4-11.0)
[2023-07-29 15:07] LABS: Bacteria 1+ /hpf (None Seen); Squamous Epithelial Cells - UA 0-5 SEEN /hpf (5-10); White Blood Cells 0-5 SEEN /hpf (0-5)
--- NOTE | 2023-07-29 15:09 | EX.ED.DYSGE1 ---
HPI History of Present Illness Chief Complaint: Flank Pain Detail of Chief Complaint: Right lower quadrant pain Informant: patient Narrative Narrative: Patient presents secondary to right lower quadrant. She is currently 5-1/2 weeks (G4, P2, Ab1). She states during the she has had some pain in the right lower quadrant that is progressively worsening. She had a miscarriage in May and is not sure if she is just anxious. She states that she has felt cold but not truly had the chills. No fever. No urinary symptoms. No bleeding or spotting. Her blood type is A positive. PFSH PFSH Medical History Anxiety and depression Easy bruising Fatigue History of stress test Left renal stone Low iron Marijuana use Migraine headache Pilonidal cyst depression Supervision of high-risk UTI in Vaginal delivery Vapes nicotine containing substance Home Medications docosahexaenoic acid 200 mg capsule ( DHA) 200 mg PO DAILY 04/02/23 [History Last Taken Unknown] ibuprofen 800 mg tablet 800 mg PO Q8H PRN pain #30 tabs 05/22/23 [Rx Last Taken Unknown] oxycodone-acetaminophen 5 mg-325 mg tablet (Percocet) 1 tab PO Q4H PRN pain 7 days #10 tabs 05/22/23 [Rx Last Taken Unknown] cephalexin 500 mg capsule 500 mg PO Q12 #14 CAPSULES 07/29/23 [Rx Last Taken Unknown] Allergy/AdvReac Type Severity Reaction Status Date / Time No Known Allergies Allergy Verified 05/22/23 11:23 Family History Father Arthritis Diabetes Hypertension High cholesterol Mother Arthritis Hypertension Lupus Surgical History History of laparoscopy Hx of wisdom tooth extraction Status post dilation and curettage Social History household members: spouse and children housing: house number of children: 2 current occupational status: employed current occupation: [employer] current occupational exposures/hazards: No pets and animals: Yes (2) pets and animals: dog(s) history of recent travel: No sexually active: Yes Smoking Status: Current every day smoker tobacco type: cigarettes second hand exposure: No alcohol intake: never substance use type: does not use diet: lactose free well-balanced diet: about half the time caffeine: No eating out: 1-3 times/week during the past year weight has: decreased > 10 lbs what type of physical activity do you participate in: none seatbelt use: always do you feel safe at home: Yes 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 history: [employer]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 ROS ROS ED Constitutional Constitutional ED: Denies chills or fever(s) Eyes Eyes: Denies discharge from eye(s) ENT ENT ED: Denies discharge from eye(s), rhinorrhea or sore throat Cardiovascular Cardiovascular: Denies chest pain or palpitations Respiratory/Chest Respiratory/Chest: Denies cough or dyspnea Gastrointestinal Gastrointestinal: Reports abdominal pain; Denies diarrhea, nausea or vomiting Genitourinary Genitourinary ED: Denies difficulty urinating, dysuria or hematuria Musculoskeletal Musculoskeletal: Denies back pain or extremity pain Integumentary Denies Abrasions or rash Neurologic Neurologic: Denies headache(s) or weakness Psychiatric Psychiatric: Denies anxiety or depression Allergic/Immunologic Allergic/Immunologic ED: Denies lip swelling or urticaria EXAM Physical Exam Const Vital Signs: 07/29/23 14:17 07/29/23 16:44 Temperature 97.2 F L Temperature Source Temporal Pulse Rate 63 98 Respiratory Rate 14 16 Blood Pressure 126/87 H 95/59 L Blood Pressure Mean 100 71 Pulse Ox 99 99 Oxygen Delivery Method Room Air Room Air Positive well nourished and well developed General Appearance ED: well developed HEENT Reports moist mucous membranes Eyes EOMs intact bilaterally Chest Wall inspection of chest normal and palpation of chest normal Resp normal respiratory effort and clear to auscultation bilaterally Cardio regular rate and regular rhythm GI GI Narrative: Abdomen soft with no reproducible tenderness. No guarding or rebound. Extremity normal to inspection Neuro oriented x3 and no sensory deficits noted Motor Exam: strength 5/5 throughout Psych mental status grossly normal Skin no rashes or lesions noted MDM MDM MDM Narrative Medical decision making narrative: IV line established. Labwork obtained to evaluate for leukocytosis, anemia, and electrolyte derangement. Urinalysis obtained to evaluate for infection/hematuria. Pelvic ultrasound obtained to evaluate for potential evidence of ectopic . Lab Data Attestation: I reviewed the patient's lab results. Labs: Laboratory Results - last 24 hr 07/29/23 07/29/23 14:44 14:55 WBC 6.1 RBC 4.59 Hgb 13.9 Hct 40.8 MCV 88.9 MCH 30.3 MCHC 34.1 RDW Std Deviation 37.3 RDW Coeff of Zi 11.8 Plt Count 129 L MPV 11.3 Immature Gran % (Auto) 0.200 Neut % (Auto) 55.9 Lymph % (Auto) 35.4 [place] % (Auto) 6.1 Eos % (Auto) 1.6 Baso % (Auto) 0.8 Absolute Neuts (auto) 3.4 Absolute Lymphs (auto) 2.16 Nucleated RBC % 0 Sodium 140 Potassium 3.8 Chloride 111 H Carbon Dioxide 25.0 Anion Gap 4 L BUN 8 Creatinine 0.50 L Estim Creat Clear Calc 149.00 Est GFR (MDRD) Af Amer 193 Est GFR (MDRD) Non-Af 159 BUN/Creatinine Ratio 15.9 Glucose 79 Calcium 8.8 HCG, Quant 2615 H Urine Color Yellow Urine Clarity Clear Urine pH 7.0 Ur Specific [place] 1.015 Urine Protein 30 H Urine Glucose (UA) Normal Urine Ketones Negative Urine Occult Blood Negative Urine Nitrite Negative Urine Bilirubin Negative Urine Urobilinogen 1 H Ur Leukocyte Esterase 25 H Urine RBC 0 SEEN Urine WBC 0-5 SEEN Ur Squamous Epith Cells 0-5 SEEN Urine Bacteria 1+ Urine Mucus 0 SEEN Radiography Diagnostic Testing: Clinical Impression(s) from Imaging Studies Obstetrics Ultrasound 07/29/23 14:48 IMPRESSION: Intrauterine gestation with mean gestational age of 5 weeks and 3 days. No pole is seen at this time. Dominant follicle in the left ovary. Electronically Signed: Santos Burnett MD at 16:04 EDT , Treatment and Re-Evaluation :: CBC normal white count 6.1 with a hemoglobin of 13.9. Chemistry studies unremarkable. Quant is 2615. Urinalysis reveals 1+ bacteria with 0-5 epithelial cells. Pelvic ultrasound reveals intrauterine gestation with mean gestational age of 5 weeks and 3 days. No pole seen at this time. Dominant follicle noted in the left ovary. Given the patient is and has bacteria in her urine, I will cover her with Keflex. Prescription will be sent to the pharmacy for her and she will receive her first dose here. Patient is to follow with [facility]. Discharge Plan Triage Chief Complaint: Flank Pain ED Provider: Palmira Henao Dx/Rx/DC Orders Clinical Impression: Bacteriuria, Pelvic pain, Early stage of Instructions: ED Abdominal Pain, Early Prescriptions: New cephalexin 500 mg capsule 500 mg PO Q12 Qty: 14 0RF No Action DHA 200 mg capsule 200 mg PO DAILY ibuprofen 800 mg tablet 800 mg PO Q8H PRN (Reason: pain) Qty: 30 0RF oxycodone-acetaminophen [Percocet] 5-325 mg tablet 1 tab PO Q4H PRN (Reason: pain) 7 Days Qty: 10 0RF Rx Instructions: 1-2 tabs q 4 hrs as needed for pain Primary Care Provider: Care Physician,No Primary Referrals: Cathy Wakefield MD [Med Staff - Active Staff] - 1 Week Care Physician,No Primary [Primary Care Provider] - Disposition Disposition: Home, Self Care
[2023-07-29 15:17] LABS: Anion Gap 4 (5-15); BUN 8 mg/dL (7-18); BUN/Creat Ratio 15.9 RATIO (10-20); Calcium,Total 8.8 mg/dL (8.5-10.1); Chloride 111 mmol/L (98-107); EST Glomerular Filtration Rate 159 mL/min (>60); Est Glom Filt Rate - Afr Amer 193 mL/min (>60); Glucose 79 mg/dL (74-106); Potassium 3.8 mmol/L (3.5-5.1); Sodium Level 140 mmol/L (136-145)
[2023-07-29 15:35] LABS: hCG Titer Quant., Serum 2615 mIU/mL (1-3)
[2023-07-29 16:44] VITALS: BP 95/59; PULSE 98; RESP 16; O2SAT 99
[2023-07-29 18:00] VITALS: BP 101/59; PULSE 92; RESP 16; TEMP 36.6; O2SAT 99
[2023-07-29] MEDS: Cephalexin 250 MG Capsule 500 MG PO (18:10)
== END 2023-07-29 18:23 | disposition home or self-care (01) ==
PROVIDERS: Emergency Provider Emergency Medicine; Visit Provider Emergency Medicine
DX: O26.891 Other specified pregnancy related conditions, first trimester (principal); R82.71 Bacteriuria; R10.2 Pelvic and perineal pain; R10.31 Right lower quadrant pain; Z3A.01 Less than 8 weeks gestation of pregnancy; O99.331 Smoking (tobacco) complicating pregnancy, first trimester; F17.210 Nicotine dependence, cigarettes, uncomplicated
CPT/HCPCS: 76817; 80048; 81001; 84702; 85025; 99283; A4216

== ENCOUNTER → 2023-08-12 | Outpatient (CLI) | payer MEDICAID, SELFPAY ==
[2023-08-12 11:22] LABS: hCG Titer Quant., Serum 21552 mIU/mL (1-3)
== END | disposition home or self-care (01) ==
LOC: LAB 10:06
PROVIDERS: Referring Provider Obstetrics & Gynecology; Visit Provider Obstetrics & Gynecology
DX: O09.299 Supervision of pregnancy with other poor reproductive or obstetric history, unspecified trimester (principal); Z3A.00 Weeks of gestation of pregnancy not specified
CPT/HCPCS: 36415; 84702

== ENCOUNTER → 2023-08-13 | Outpatient (CLI) | payer MEDICAID, SELFPAY ==
--- NOTE | 2023-08-13 10:48 | US_ITS ---
STUDY: FIRST TRIMESTER OBSTETRICAL ULTRASOUND REASON FOR EXAM: Female, 23 years old right sided pain in preg LMP: June 21, 2023. TECHNIQUE: Transvaginal TECHNICAL QUALITY: Adequate. PRIOR ULTRASOUND: Comparison is made with prior study dated July 29, 2023. FINDINGS: There is visualization of a single gestational sac in a normal intrauterine position. The mean sac diameter (MSD) measures 2.2 cm, indicating an estimated gestational age (EGA) of 7 weeks, 0 days. The gestational sac shape is within normal limits. There is a visualized yolk sac. The yolk sac measures 3.6 mm. The placenta is non-visualized. There is visualization of a live embryo. The crown-rump length (CRL) measures 1.2 cm, indicating an estimated gestational age (EGA) of 7 weeks, 3 days. There is demonstrated cardiac activity with a heart rate of 152 bpm. The estimated gestation age (EGA) by LMP is 7 weeks, 4 days. The estimated date of delivery (CHRISTIE) by LMP is March 27, 2024. The estimated gestation age (EGA) by US is 7 weeks, 2 days. The estimated date of delivery (CHRISTIE) by US is March 29, 2024. The uterus measures 10.2 cm x 1.2 cm x 1.3 cm. There is a 1.3 cm x 2.6 cm x 0.9 cm complex fluid collection superior to the gestational sac. There is no demonstrated uterine fibroid. The cervix is closed. The right ovary measures 2 cm x 1.2 cm x 1.3 cm. There is no right ovarian cyst. There is no visualized right adnexal mass or complex lesion. The left ovary measures 2 cm x 2.3 cm x 1.8 cm. There is a 1.6 cm x 1.7 cm x 1.6 cm dominant ovarian follicle. There is no visualized left adnexal mass or complex lesion. There is no fluid in the cul de sac. US/Transvaginal w/Preg US IMPRESSION: Single live intrauterine gestation with a mean gestational age of 7 weeks and 2 days. Electronically Signed: Santos Burnett MD at 12:15 EDT ,
== END | disposition home or self-care (01) ==
LOC: US 10:48
PROVIDERS: Referring Provider Nurse Practitioner Women's Health; Visit Provider Nurse Practitioner Women's Health
DX: O26.899 Other specified pregnancy related conditions, unspecified trimester (principal); O09.299 Supervision of pregnancy with other poor reproductive or obstetric history, unspecified trimester; R10.31 Right lower quadrant pain; Z3A.00 Weeks of gestation of pregnancy not specified
CPT/HCPCS: 76817

== ENCOUNTER → 2023-08-15 | Outpatient (CLI) | payer MEDICAID, SELFPAY ==
[2023-08-19 00:06] LABS: Chlamydia By Nucleic Acid AMP Negative (Negative); Gonococcus By Nucleic Acid AMP Negative (Negative)
[2023-08-21 19:46] LABS: HPV Reflexed? NOT INDICATED
== END | disposition home or self-care (01) ==
PROVIDERS: Referring Provider Advanced Practice Midwife; Visit Provider Advanced Practice Midwife
DX: O09.90 Supervision of high risk pregnancy, unspecified, unspecified trimester (principal); Z3A.00 Weeks of gestation of pregnancy not specified; Z12.4 Encounter for screening for malignant neoplasm of cervix
CPT/HCPCS: 87077; 87086; 87088; 87186; 87491; 87591; 88175; G0145

== ENCOUNTER → 2023-08-30 | Outpatient (CLI) | payer MEDICAID, SELFPAY ==
[2023-08-30 10:51] LABS: Absolute Neutrophil Count 6.6 X10^3/uL (2.0-7.7); Basophil# 0.05 X10^3/uL; Basophil% 0.5 % (0-1); Eosinophil# 0.54 X10^3/uL; Eosinophils% 5.7 % (0-5); Hematocrit 36.2 % (37-47); Hemoglobin 12.3 g/dL (12.0-15.0); Lymphocyte % 17.8 % (19-41); Mean Corpuscular Hgb 29.9 pg (27.0-32.0); Mean Corpuscular Volume 88.1 fL (81-99); Mean Platelet Vol. 10.8 fl (6.2-12.0); Monocyte# 0.61 X10^3/uL; Monocyte% 6.4 % (0-10); NRBC Flagged by Analyzer 0 % (0-5); Neutrophil # 6.59 X10^3/uL (2.7-7.7); Neutrophil % 69.2 % (47-70); Platelet Count 142 K/mm3 (150-450); RBC Distribution Width CV 12.2 % (11.6-14.6); RBC Distribution Width SD 39.8 fl (35.1-43.9); Red Blood Count 4.11 M/mm3 (4.2-5.4); White Blood Count 9.5 K/mm3 (4.4-11.0)
[2023-08-30 12:05] LABS: HIV - WCH Non-Reactive (Nonreactive); Hepatitis B Surface Antigen Non-Reactive (Nonreactive); Hepatitis C Antibody Non-Reactive (Nonreactive); Rubella IgG Reactive (Nonreactive); Syphilis Antibodies Non-reactive
== END | disposition home or self-care (01) ==
LOC: LAB 10:11
PROVIDERS: Referring Provider Advanced Practice Midwife; Visit Provider Advanced Practice Midwife
DX: O09.90 Supervision of high risk pregnancy, unspecified, unspecified trimester (principal); Z3A.00 Weeks of gestation of pregnancy not specified
CPT/HCPCS: 36415; 85025; 86703; 86762; 86780; 86803; 86850; 86900; 86901; 87340

== ENCOUNTER → 2023-10-31 | Outpatient (CLI) | payer MEDICAID, SELFPAY ==
[2023-10-31 10:52] LABS: Absolute Lymphocyte Count 1.56 X10^3/uL (0.83-4.51); Absolute Neutrophil Count 6.8 X10^3/uL (2.0-7.7); Basophil# 0.04 X10^3/uL; Basophil% 0.4 % (0-1); Eosinophil# 0.13 X10^3/uL; Eosinophils% 1.4 % (0-5); Hematocrit 36.5 % (37-47); Hemoglobin 12.2 g/dL (12.0-15.0); Lymphocyte # 1.56 X10^3/ul (0.83-4.51); Lymphocyte % 17.2 % (19-41); Mean Corp Hgb Conc 33.4 g/dL (32-36); Mean Corpuscular Hgb 30.4 pg (27.0-32.0); Mean Platelet Vol. 10.6 fl (6.2-12.0); Monocyte# 0.48 X10^3/uL; Monocyte% 5.3 % (0-10); NRBC Flagged by Analyzer 0 % (0-5); Neutrophil % 75.3 % (47-70); Platelet Count 157 K/mm3 (150-450); RBC Distribution Width CV 12.7 % (11.6-14.6); RBC Distribution Width SD 41.7 fl (35.1-43.9); Red Blood Count 4.01 M/mm3 (4.2-5.4); White Blood Count 9.1 K/mm3 (4.4-11.0)
== END | disposition home or self-care (01) ==
LOC: LAB 10:19
PROVIDERS: Referring Provider Obstetrics & Gynecology; Visit Provider Obstetrics & Gynecology
DX: O99.119 Other diseases of the blood and blood-forming organs and certain disorders involving the immune mechanism complicating pregnancy, unspecified trimester (principal); D69.6 Thrombocytopenia, unspecified; Z3A.00 Weeks of gestation of pregnancy not specified
CPT/HCPCS: 36415; 85025

== ENCOUNTER 2023-12-03 10:30 | Outpatient (CLI) | payer MEDICAID, SELFPAY ==
[2023-12-03 11:05] VITALS: BP 116/79; PULSE 84; RESP 16; TEMP 36.7; O2SAT 98
[2023-12-03 11:21] VITALS: BMI 24.3
[2023-12-03 11:39] LABS: ROM Internal Control Test YES-OK TO RESULT pt. (Internal QC); ROM Patient Test Negative (Negative); Record Kit Lot#, ROM+ K1866
--- NOTE | 2023-12-03 12:43 | OB.TRI.NOTE ---
HPI - General General Date of Service: 12/03/23 HPI Narrative FELICIA VICTOR, is a 23 F @ 23.4 weeks who presents to r/o [facility] Medical History (Updated 12/03/23 @ 12:[address] 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, antepartum Easy bruising Incomplete UTI in [place] Left renal stone Marijuana use Low iron Migraine headache Vapes nicotine containing substance History of stress test depression Fatigue Pilonidal cyst Anxiety and depression Home Medications ?Medication ?Instructions ?Recorded ?Last Taken ?Type multivitamin no.47-iron fum 27 1 cap PO DAILY 08/09/23 11/30/23 10:00 History mg-folate no.1 1 mg-dha 300 mg 1 cap capsule (PNV-DHA) ondansetron 4 mg disintegrating 4 mg PO Q6H PRN nausea and 10/07/23 Unknown Rx tablet vomiting #30 tabs Allergy/AdvReac Type Severity Reaction Status Date / Time No Known Allergies Allergy Verified 12/03/23 11:25 Family History Father Arthritis Diabetes Hypertension High cholesterol Mother Arthritis Hypertension Lupus Zhxie-Pxewrkajj-Jozkv (WPW) syndrome Grandmother Thyroid cancer, Onset Age: 70 Maternal Surgical History Status post dilation and curettage Hx of wisdom tooth extraction History of laparoscopy Social History adopted: No household members: spouse and children housing: house number of children: 2 current occupational status: unemployed current occupation: [employer] current occupational exposures/hazards: No pets and animals: Yes (2) pets and animals: dog(s) history of recent travel: No sexually active: Yes Smoking Status: Former smoker quit date: 07/22/23 second hand exposure: No alcohol intake: never substance use type: does not use diet: lactose free well-balanced diet: daily or most days caffeine: No eating out: 1-3 times/week during the past year weight has: remained stable what type of physical activity do you participate in: none amish/rastafarian: None seatbelt use: always do you feel safe at home: Yes 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 history: [employer] () History 4 Elective abortions Hx Para 2 Spontaneous abortions 1 Hx # Term Pregnancies 2 Ectopic pregnancies Hx # Pregnancies Multiple births # of living children 2 Past Pregnancies Del. Date Name GA/Weeks Outcome Route Bth Weight Infant Gen Labor Lgth Anesthesia Del Locatn Provider FOB 03/24/18 River 40 live - full term 7lbs 5oz Male 12 hours epidural [facility] SM 10/27/20 Thaddeus 40 live - full term 7lbs 14oz Male epidural [facility] Ashu 05/21/23 11 spontaneous Delivery Date: 03/24/18 Last Updated by: Tammy Singletary dec- internal monitor used. Delivery Date: 05/21/23 Last Updated by: Mony Oswald D&C @ 11WKS, BABY STOPPED DEVELOPING AT 7 WKS NST FHR Rate Baby A Baseline: 145 Variability:: Moderate Accelerations:: 10 x 10 Decelerations:: None NST Reactive:: Yes and Appropriate for gestational age FHR Category:: Category I Uterine Activity:: none Assessment & Plan (1) False labor before 37 completed weeks of gestation: PLAN: Plan @ 23.4 weeks, Membranes intact, not in labor 1) follow up in office as scheduled 2) NST reassuring for 23 week fetus 3) ROM plus was negative. 4) dc home
== END 2023-12-03 11:55 | disposition home or self-care (01) ==
LOC: WPOUT 10:55 → WP 10:55
PROVIDERS: Referring Provider Obstetrics & Gynecology; Visit Provider Obstetrics & Gynecology
DX: O47.02 False labor before 37 completed weeks of gestation, second trimester (principal); Z3A.23 23 weeks gestation of pregnancy
CPT/HCPCS: 59025; 59050; 84112; 99221; G0378

== ENCOUNTER 2024-01-17 09:29 | Emergency (ER) | payer MEDICAID, SELFPAY ==
[2024-01-17 09:30] VITALS: BP 125/76; PULSE 85; RESP 16; TEMP 36.4; O2SAT 100; BMI 25.4
[2024-01-17 09:44] VITALS: BP 127/83; PULSE 84; RESP 19; TEMP 36.9; O2SAT 97
--- NOTE | 2024-01-17 10:05 | EX.ED.DYSGE1 ---
HPI History of Present Illness Chief Complaint: General Illness Narrative Narrative: Patient is a 23-year-old female with 1 miscarriage at 30 weeks currently who presents to the emergency department with chief complaint of nausea vomiting not tolerating oral intake. Patient states that for the past week she has had a cough and then last night she noted that she had nausea vomiting prompting her to come here for the valuation management. States that she ran out of her Zofran at home. Patient states that last week she went to an urgent care and was given an inhaler however states that she felt like this was not helping her and stopped this several days ago. States that her children recently went back to school and had been bringing several viruses home and she feels like she is getting all of them. 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, antepartum Easy bruising Incomplete UTI in [place] Left renal stone Marijuana use Low iron Migraine headache Vapes nicotine containing substance History of stress test depression Fatigue Pilonidal cyst Anxiety and depression Home Medications ?Medication ?Instructions ?Recorded ?Last Taken ?Type multivitamin no.47-iron fum 27 1 cap PO DAILY 08/09/23 11/30/23 10:00 History mg-folate no.1 1 mg-dha 300 mg 1 cap capsule (PNV-DHA) ondansetron 4 mg disintegrating 4 mg PO Q6H PRN nausea and 10/07/23 Unknown Rx tablet vomiting #30 tabs cephalexin 500 mg capsule 500 mg PO BID 7 days #14 caps 01/17/24 Unknown Rx ondansetron 4 mg disintegrating 4 mg PO Q6H PRN nausea and 01/17/24 Unknown Rx tablet vomiting #20 tabs Allergy/AdvReac Type Severity Reaction Status Date / Time No Known Allergies Allergy Verified 12/03/23 11:25 Family History Father Arthritis Diabetes Hypertension High cholesterol Mother Arthritis Hypertension Lupus Mxfru-Weamotcqj-Oivuc (WPW) syndrome Grandmother Thyroid cancer, Onset Age: 70 Maternal Surgical History Status post dilation and curettage Hx of wisdom tooth extraction History of laparoscopy Social History adopted: No household members: spouse and children housing: house number of children: 2 current occupational status: unemployed current occupation: [employer] current occupational exposures/hazards: No pets and animals: Yes (2) pets and animals: dog(s) history of recent travel: No sexually active: Yes Smoking Status: Former smoker quit date: 07/22/23 second hand exposure: No alcohol intake: never substance use type: does not use diet: lactose free well-balanced diet: daily or most days caffeine: No eating out: 1-3 times/week during the past year weight has: remained stable what type of physical activity do you participate in: none amish/adventism: None seatbelt use: always do you feel safe at home: Yes 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 history: Lloyd () ROS ROS ED ROS Narrative Constitutional: Patient denies any fevers, chills, headaches, lightness Cardiovascular: Denies chest pain or palpitations Respiratory: Complains of cough as noted above Abdomen: Complains of nausea vomiting denies abdominal pain : Denies any painful urination, hematuria complains of increased frequency of urinating Neurological: Denies numbness, weakness, tingling Musculoskeletal: Denies back pain Skin: Denies rashes or lesions EXAM Physical Exam Narrative Exam Narrative: General: Patient was lying in bed rest comfortably did not appear to be acute distress Head: Atraumatic, normocephalic Eyes, ears, nose, throat: PERRL bilateral, EOMI bilateral, no conjunctival injection noted. Posterior pharynx visualized, uvula midline, no erythema noted no exudates noted Neck: Soft and supple, trachea midline Cardiovascular: Regular rate and rhythm no murmurs gallops rubs noted Respiratory: Clear to auscultation bilaterally no rales rhonchi or wheezes noted Abdomen: Soft, gravid abdomen, no tenderness palpation, bowel sounds present x 4 Extremities: +5/5 strength noted in the bilateral upper and lower extremities, no pedal edema neuroexam Neurological: Patient follow commands knew that she was at [facility] year is 2023 Skin: Warm, dry, tact Const Vital Signs: 01/17/24 09:30 01/17/24 09:42 01/17/24 09:44 Temperature 97.6 F L 98.4 F Temperature Source Temporal Oral Pulse Rate 85 84 Respiratory Rate 16 19 H Respiratory Effort Normal Non-Labored Respiratory Pattern Normal Blood Pressure 125/76 H 127/83 H Blood Pressure Mean 92 97 Pulse Ox 100 97 Oxygen Delivery Method Room Air Room Air 01/17/24 12:37 Temperature Temperature Source Pulse Rate 88 Respiratory Rate 21 H Respiratory Effort Respiratory Pattern Blood Pressure 127/78 H Blood Pressure Mean 94 Pulse Ox 100 Oxygen Delivery Method Room Air MDM MDM MDM Narrative Medical decision making narrative: Patient is a 23-year-old female who presented to the emerged part with a chief complaint of nausea vomiting not feeling well. Patient will have a workup performed here on the differential diagnose includes but not limited to UTI, viral gastroenteritis second of ideology, upper respiratory effect second viral etiology. Once workup is obtained reviewed she will be reevaluated. Patient given IV fluids, Zofran. Patient's urinalysis reviewed and show concerns for a urinary tract infection with positive nitrites 100 leukocyte esterase with 10-25 white cells noted with 3+ bacteria she was given a gram of Rocephin here. Patient's urine was sent for culture she was advised to follow-up on her culture results with her SENIOR CLINICAL PROJECT MANAGER and her [facility] primary care physician. She was encouraged return with worsening symptoms or other concerns. Patient's test for COVID flu and RSV were negative. She would like to go home at this point time. Prescription was sent for Keflex and Zofran. She was discharged home in stable condition with all concerns answered Lab Data Labs: Laboratory Results - last 24 hr 01/17/24 11:49 Urine Color Yellow Urine Clarity Cloudy Urine pH 7.0 Ur Specific [place] 1.010 Urine Protein 15 H Urine Glucose (UA) Normal Urine Ketones 150 A* Urine Occult Blood Negative Urine Nitrite Positive H Urine Bilirubin Negative Urine Urobilinogen 4 H Ur Leukocyte Esterase 100 H Urine RBC 0-5 SEEN Urine WBC 10-25 SEEN Ur Squamous Epith Cells 10-25 SEEN Urine Bacteria 3+ Urine Mucus 0 SEEN Discharge Plan Triage Chief Complaint: General Illness ED Provider: Duke Calhoun Dx/Rx/DC Orders Clinical Impression: Urinary tract infection Prescriptions: New cephalexin 500 mg capsule 500 mg PO BID 7 Days Qty: 14 0RF ondansetron 4 mg tablet,disintegrating 4 mg PO Q6H PRN (Reason: nausea and vomiting) Qty: 20 0RF No Action PNV-DHA 27 mg iron-1 mg -300 mg capsule 1 cap PO DAILY ondansetron 4 mg tablet,disintegrating 4 mg PO Q6H PRN (Reason: nausea and vomiting) Qty: 30 2RF Primary Care Provider: Care Physician,No Primary Referrals: Care Physician,No Primary [Primary Care Provider] - Activity Restrictions/Additional Instructions: Follow-up on culture result with your SENIOR CLINICAL PROJECT MANAGER and your primary care physician. Take antibiotics as prescribed. Return with worsening symptoms or other concerns. Print Language: Vietnamese Disposition Disposition: Home, Self Care
[2024-01-17] MEDS: Ondansetron 4 MG/2 ML Vial IV (11:01)
[2024-01-17] MEDS: 0.9% Normal Saline (1000mL) 1,000 ML 999 ML IV (11:01)
[2024-01-17 12:00] LABS: Mucous, Urine 0 SEEN /hpf (<or=2+)
[2024-01-17 12:09] LABS: Color, Urine Yellow (Yellow); Glucose, Dipstick Normal (Normal); Leukocyte Esterase-Dipstick 100 /ul (Negative); Nitrite-Dipstick Positive (Negative); Occult Blood-Urine Negative /ul (Negative); Protein-Dipstick 15 mg/dl (Negative); Urine Bilirubin Dipstick Negative (Negative); Urine Clarity Cloudy (Clear); Urine Urobilinogen 4 mg/dl (Normal)
[2024-01-17 12:11] LABS: Ketone-Dipstick 150 mg/dl (Negative)
[2024-01-17 12:37] VITALS: BP 127/78; PULSE 88; RESP 21; O2SAT 100
[2024-01-17 12:46] LABS: Bacteria 3+ /hpf (None Seen); Red Blood Cells-Urine 0-5 SEEN /hpf (0-5); Squamous Epithelial Cells - UA 10-25 SEEN /hpf (5-10); White Blood Cells 10-25 SEEN /hpf (0-5)
[2024-01-17] MEDS: Ceftriaxone 1 GM/50 ML BAG IV (14:00)
[2024-01-17 14:32] VITALS: BP 119/75; PULSE 81; RESP 22; TEMP 36.4; O2SAT 98
== END 2024-01-17 14:35 | disposition home or self-care (01) ==
PROVIDERS: Emergency Provider Emergency Medicine; Visit Provider Emergency Medicine
DX: O23.43 Unspecified infection of urinary tract in pregnancy, third trimester (principal); Z87.891 Personal history of nicotine dependence; Z3A.30 30 weeks gestation of pregnancy
CPT/HCPCS: 81001; 87077; 87086; 87088; 87186; 87631; 96361; 96365; 96375; 99283; J2405

== ENCOUNTER 2024-02-24 13:15 | Outpatient (CLI) | payer MEDICAID, SELFPAY ==
[2024-02-24 13:29] VITALS: BMI 24.5
[2024-02-24 13:37] VITALS: RESP 16; TEMP 36.6
[2024-02-24 13:39] VITALS: PULSE 97; O2SAT 99
[2024-02-24 13:40] VITALS: BP 113/72; PULSE 98; O2SAT 97
[2024-02-24 14:11] LABS: Mucous, Urine 0 SEEN /hpf (<or=2+); Red Blood Cells-Urine 0 SEEN /hpf (0-5)
[2024-02-24 14:12] LABS: Color, Urine Yellow (Yellow); Glucose, Dipstick Normal (Normal); Ketone-Dipstick 15 mg/dl (Negative); Leukocyte Esterase-Dipstick 100 /ul (Negative); Nitrite-Dipstick Positive (Negative); Occult Blood-Urine Negative /ul (Negative); Protein-Dipstick Negative (Negative); Urine Bilirubin Dipstick Negative (Negative); Urine Clarity Cloudy (Clear); Urine Urobilinogen 1 mg/dl (Normal)
[2024-02-24 14:28] VITALS: BP 138/91; PULSE 82; RESP 16; TEMP 36.9; O2SAT 99
[2024-02-24 14:44] LABS: Bacteria 1+ /hpf (None Seen); Squamous Epithelial Cells - UA 5-10 SEEN /hpf (5-10); White Blood Cells 0-5 SEEN /hpf (0-5)
--- NOTE | 2024-02-24 17:40 | OB.TRI.HP_ITS ---
HPI - General HPI Narrative FELICIA VICTOR, is a 23 F who presents for contractions and cramping. at 35w3. PFSH PFSH Medical History Circumvallate placenta Thrombocytopenia affecting History of miscarriage, currently Supervision of high-risk Abdominal pain of right lower quadrant during , antepartum Chromosome abnormality fetus, affect management of mother, antepartum Easy bruising Incomplete UTI in [place] Left renal stone Marijuana use Low iron Migraine headache Vapes nicotine containing substance History of stress test depression Fatigue Pilonidal cyst Anxiety and depression Home Medications ?Medication ?Instructions ?Recorded ?Last Taken ?Type multivitamin no.47-iron fum 27 1 cap PO DAILY 08/09/23 02/22/24 22:00 History mg-folate no.1 1 mg-dha 300 mg capsule (PNV-DHA) ondansetron 4 mg disintegrating 4 mg PO Q6H PRN nausea and 10/07/23 02/24/24 08:00 Rx tablet vomiting #30 tabs omeprazole 20 mg capsule,delayed 20 mg PO PRN 02/24/24 02/23/24 18:00 History release Allergy/AdvReac Type Severity Reaction Status Date / Time No Known Allergies Allergy Verified 02/24/24 13:47 Family History Father Arthritis Diabetes Hypertension High cholesterol Mother Arthritis Hypertension Lupus Fushc-Wrkwuphkh-Unvhz (WPW) syndrome Grandmother Thyroid cancer, Onset Age: 70 Maternal Surgical History Status post dilation and curettage Hx of wisdom tooth extraction History of laparoscopy Social History adopted: No household members: spouse and children housing: house number of children: 2 current occupational status: unemployed current occupation: [employer] current occupational exposures/hazards: No pets and animals: Yes (2) pets and animals: dog(s) history of recent travel: No sexually active: Yes Smoking Status: Former smoker quit date: 07/22/23 second hand exposure: No alcohol intake: never substance use type: does not use diet: lactose free well-balanced diet: daily or most days caffeine: No eating out: 1-3 times/week during the past year weight has: remained stable what type of physical activity do you participate in: none amish/synagogue: None seatbelt use: always do you feel safe at home: Yes 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 history: Lloyd () History 4 Elective abortions Hx Para 2 Spontaneous abortions 1 Hx # Term Pregnancies 2 Ectopic pregnancies Hx # Pregnancies Multiple births # of living children 2 Past Pregnancies Del. Date Name GA/Weeks Outcome Route Bth Weight Gen Labor Lgth Anesthesia Del Locatn Provider FOB 03/24/18 River 40 live - full term 7lbs 5oz Male [address] [facility] SM 10/27/20 Thadedus 40 live - full term 7lbs 14oz Male ep idural [facility] Marcanthony 05/21/23 11 spontaneous Delivery Date: 03/24/18 Last Updated by: Tammy Singletary dec- internal monitor used. Delivery Date: 05/21/23 Last Updated by: Mony Oswald D&C @ 11WKS, BABY STOPPED DEVELOPING AT 7 WKS NST FHR Rate Baby A Baseline: 125 Variability:: Moderate Accelerations:: 15 x 15 Decelerations:: None NST Reactive:: Yes Assessment & Plan (1) Urinary tract infection: COMMENT: 02/24/24 Macrobid PLAN: Plan 1) UA positive for nitrites and leukocytes. Macrobid 100mg PO BID x7 days 2) Urine culture sent 3) No signs of labor, D/C home
== END 2024-02-24 15:45 | disposition home or self-care (01) ==
LOC: WPOUT 13:21 → WP 13:22
PROVIDERS: Referring Provider Advanced Practice Midwife; Visit Provider Advanced Practice Midwife
DX: O23.43 Unspecified infection of urinary tract in pregnancy, third trimester (principal); Z3A.35 35 weeks gestation of pregnancy; Z87.891 Personal history of nicotine dependence
CPT/HCPCS: 59025; 59050; 81001; 87077; 87086; 87088; 87186; 99221; G0378

== ENCOUNTER 2024-03-25 07:26 | Inpatient (IN) | payer MEDICAID, SELFPAY ==
[2024-03-25] VITALS (61 sets, daily range): BP systolic 109–145; BP diastolic 62–100; PULSE 63–116; RESP 16–18; TEMP 36.1–37.1; O2SAT 80–100; BMI 27.9
--- NOTE | 2024-03-25 07:45 | HP.PCM.OB_ITS ---
HPI - General General Date of Admission: 03/25/24 HPI Narrative * FELICIA VICTOR, is a 23 F at 39.5 weeks gestation who presents for an elective induction of labor. Maternal Data Information CHRISTIE Calculator Estimated Delivery Date Method Current WG Current Estimate 03/27/24 Manual 39w 5d PFSH PFSH Medical History Circumvallate placenta Supervision of high-risk Thrombocytopenia affecting History of miscarriage, currently Abdominal pain of right lower quadrant during , antepartum Chromosome abnormality fetus, affect management of mother, antepartum Easy bruising Incomplete UTI in [place] Left renal stone Marijuana use Low iron Migraine headache Vapes nicotine containing substance History of stress test depression Fatigue Pilonidal cyst Anxiety and depression Home Medications ?Medication ?Instructions ?Recorded ?Last Taken ?Type multivitamin no.47-iron fum 27 1 cap PO DAILY 08/09/23 02/22/24 22:00 History mg-folate no.1 1 mg-dha 300 mg capsule (PNV-DHA) ondansetron 4 mg disintegrating 4 mg PO Q6H PRN nausea and 10/07/23 03/25/24 Rx tablet vomiting #30 tabs omeprazole 20 mg capsule,delayed 20 mg PO PRN heartburn 02/24/24 03/24/24 History release Allergy/AdvReac Type Severity Reaction Status Date / Time cephalexin (From Keflex) AdvReac Other Verified 03/25/24 07:46 Family History Father Arthritis Diabetes Hypertension High cholesterol Mother Arthritis Hypertension Lupus Litpd-Ewruqksix-Kuhxa (WPW) syndrome Grandmother Thyroid cancer, Onset Age: 70 Maternal Surgical History Status post dilation and curettage Hx of wisdom tooth extraction History of laparoscopy Social History adopted: No household members: spouse and children housing: house number of children: 2 current occupational status: unemployed 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 current occupational exposures/hazards: No pets and animals: Yes (2) pets and animals: dog(s) history of recent travel: No sexually active: Yes Smoking Status: Former smoker quit date: 07/22/23 second hand exposure: No alcohol intake: never substance use type: does not use diet: lactose free well-balanced diet: daily or most days caffeine: No eating out: 1-3 times/week during the past year weight has: remained stable what type of physical activity do you participate in: none amish/holiness: None seatbelt use: always do you feel safe at home: Yes 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 history: Lloyd () History 4 Elective abortions Hx Para 3 Spontaneous abortions 1 Hx # Term Pregnancies 2 Ectopic pregnancies Hx # Pregnancies Multiple births # of living children 2 Past Pregnancies Del. Date Name GA/Weeks Outcome Route Bth Weight Gen Labor Lgth Anesthesia Del Locatn Provider FOB 03/24/18 [place] 40 live - full term 7lbs 5oz Male 12 h ours epidural [facility] 10/27/20 Thaddeus 40 live - full term 7lbs 14oz Male ep idural [facility] Abdullahi newman 05/21/23 11 spontaneous Delivery Date: 03/24/18 Last Updated by: Tammy Singletary dec- internal monitor used. Delivery Date: 05/21/23 Last Updated by: Mony Oswald D&C @ 11WKS, BABY STOPPED DEVELOPING AT 7 WKS ROS Eyes Eyes: Denies blurry vision, change in vision or spots in vision ENT HEENT: Denies dizziness or headache(s) Cardiovascular Cardiovascular: Denies abdominal pain, chest pain or dyspnea Respiratory/Chest Respiratory/Chest: Denies cough, dyspnea, shortness of breath at rest or shortness of breath with exertion Gastrointestinal Gastrointestinal: Denies abdominal pain, diarrhea or vomiting Genitourinary Genitourinary: Denies change in urinary stream, difficulty urinating or dysuria Musculoskeletal Musculoskeletal: Reports none Integumentary Integumentary: Denies rash Neurologic Neurologic: Denies dizziness, headache(s), memory loss or weakness Psychiatric Psychiatric: Reports none Physical Exam Const alert, oriented x3 and no apparent distress General Appearance: cooperative Orientation / Consciousness: awake Exam Limitations: no limitations HEENT normocephalic Head and Scalp: normal to inspection Eyes General Eye: normal appearance of both eyes Neck full ROM and no lymphadenopathy Lymph Lymphatic: no lymphadenopathy noted Chest inspection of chest normal Resp normal respiratory effort, normal air movement and clear to auscultation bilaterally Effort and Inspection: able to speak in complete sentences and symmetric chest movement Cardio regular rate and regular rhythm GI normal to inspection, nondistended, normoactive bowel sounds Manual OB Exam: presentation cephalic Back/Spine normal ROM Extremity full ROM and no calf tenderness Skin no rashes or lesions noted General Skin Exam: no breakdown Neuro oriented x3 and CN's II-XII intact bilaterally Psych mental status grossly normal and thought process normal Labs Labs GBS negative on 02/27/24 Assessment & Plan (1) Supervision of high-risk : COMMENT: PRR , CHRISTIE 03/27/24, PC Thaddeus [place]ley, Del (2) Circumvallate placenta: COMMENT: growth scans q 4 weeks (3) Anxiety and depression: COMMENT: NO MEDS (4) Encounter for elective induction of labor: (5) 39 weeks gestation of : PLAN: Plan Admit to labor and delivery Routine labs Start IV and run fluids per orders GBS negative Start Pitocin at 2 mu/min and increase per orders Epidural when indicated Dr. Teixeira notified of admission and is collaborating physicain
[2024-03-25] MEDS: Lactated Ringers 1,000 ML 50 ML IV (07:50)
[2024-03-25 08:06] LABS: Absolute Neutrophil Count 6.6 X10^3/uL (2.0-7.7); Basophil# 0.04 X10^3/uL; Basophil% 0.4 % (0-1); Hematocrit 31.1 % (37-47); Hemoglobin 9.8 g/dL (12.0-15.0); Lymphocyte % 21.5 % (19-41); Mean Corp Hgb Conc 31.5 g/dL (32-36); Mean Corpuscular Hgb 25.5 pg (27.0-32.0); Mean Platelet Vol. 11.8 fl (6.2-12.0); Monocyte# 0.86 X10^3/uL; Monocyte% 8.8 % (0-10); NRBC Flagged by Analyzer 0 % (0-5); Neutrophil # 6.62 X10^3/uL (2.7-7.7); Neutrophil % 67.7 % (47-70); Platelet Count 180 K/mm3 (150-450); RBC Distribution Width CV 14.4 % (11.6-14.6); RBC Distribution Width SD 42.1 fl (35.1-43.9); Red Blood Count 3.84 M/mm3 (4.2-5.4); White Blood Count 9.8 K/mm3 (4.4-11.0)
[2024-03-25] MEDS: Oxytocin 15 Units/NS 250ml 15 UNITS/250 ML IV.SOLN 2 UNITS IV (08:20)
[2024-03-25] MEDS: Ondansetron 4 MG/2 ML Vial IV ×2 (08:46→13:21)
[2024-03-25] MEDS: 0.9% Saline Lock 10 ML Syringe IV ×2 (08:46→13:21)
[2024-03-25 10:45] LABS: Syphilis Antibodies Non-reactive
[2024-03-25 11:40] LABS: Amphetamine Urine VISTA NEGATIVE (<1000 ng/mL); Barbiturate Urine VISTA NEGATIVE (< 200 ng/mL); Benzodiazepine Urine VISTA NEGATIVE (< 200 ng/mL); Cocaine Urine VISTA NEGATIVE (< 300 ng/mL); Ecstacy Urine VISTA NEGATIVE (< 500 ng/mL); Methadone Urine VISTA NEGATIVE (< 300 ng/mL); PCP Urine VISTA NEGATIVE (< 25 ng/mL); THC Urine VISTA POSITIVE (< 50 ng/mL); Vista UDS pH Range 6
--- NOTE | 2024-03-25 12:18 | PN.OBGYN_ITS ---
Subjective Subjective Patient seen at bedside. Using nitrous oxide for pain management. Undecided about an epidural. Objective Data Objective Data Vital Signs: Vital Signs Temp Pulse Resp BP Pulse Ox 97.8 F 83 17 123/78 H 98 03/25/24 11:08 03/25/24 11:08 03/25/24 11:08 03/25/24 11:08 03/25/24 11:08 Weight: 163 lb Body Mass Index (BMI) 27.9 Intake & Output: Intake and Output for Last 24 Hours 03/23/24 03/24/24 03/25/24 23:59 23:59 23:59 Intake Total . / Balance / Lab / Micro Data 03/25/24 07:50 Labs: Laboratory Results - last 24 hr 03/25/24 07:50: WBC 9.8, RBC 3.84 L, Hgb 9.8 L, Hct 31.1 L, MCV 81.0, MCH 25.5 L , MCHC 31.5 L, RDW Std Deviation 42.1, RDW Coeff of Zi 14.4, Plt Count 180, MPV 11.8, Immature Gran % (Auto) 0.600, Neut % (Auto) 67.7, Lymph % (Auto) 21.5, [place] % (Auto) 8.8, Eos % (Auto) 1.0, Baso % (Auto) 0.4, Absolute Neuts (auto) 6.6, Absolute Lymphs (auto) 2.10, Nucleated RBC % 0, Syphilis Total Ab Non- reactive, Blood Type A POSITIVE, Antibody Screen NEGATIVE 03/25/24 11:00: Urine Opiates Screen NEGATIVE, Urine Methadone Screen NEGATIVE, Ur Barbiturates Screen NEGATIVE, Ur Phencyclidine Scrn NEGATIVE, Ur Amphetamines Screen NEGATIVE, MDMA (Ecstasy) Screen NEGATIVE, U Benzodiazepines Scrn NEGATIVE, Urine Cocaine Screen NEGATIVE, U Cannabinoids Screen POSITIVE H, Ur Drug Screen Comment NST FHR Rate Baby A Baseline: 125 Variability:: Moderate Accelerations:: 15 x 15 Decelerations:: None NST Reactive:: Yes FHR Category:: Category I Uterine Activity:: 1-3 minutes- palpate moderate and relaxed in between Assessment & Plan (1) Polyhydramnios affecting : (2) Meconium in amniotic fluid: (3) 39 weeks gestation of : (4) Encounter for elective induction of labor: (5) Circumvallate placenta: COMMENT: growth scans q 4 weeks (6) Anxiety and depression: COMMENT: NO MEDS PLAN: Plan CE- 3.5/70/-2 AROM for copious amount of meconium stained fluid Cat. 1 tracing Pitocin at 8 mu/min- continue to increase per orders Epidural if indicated Anticipate
[2024-03-25] MEDS: Lactated Ringers 1,000 ML 999 ML IV (14:10)
[2024-03-25] MEDS: fentaNYL-bupivacaine (epidural) 100 ML BAG EPIDURAL (15:47)
--- NOTE | 2024-03-25 16:48 | OB.VAGDELI_ITS ---
Assessment & Plan (1) Meconium in amniotic fluid: (2) (spontaneous vaginal delivery): (3) Anxiety and depression: COMMENT: NO MEDS Maternal Data Information CHRISTIE Calculator Estimated Delivery Date Method Current WG Current Estimate 03/27/24 Manual 39w 5d Vaginal Delivery Maternal Presentation Maternal Presentation: Elective Induction Type of Induction: Pitocin and Amniotomy Vaginal Delivery Information Procedure Performed: Spontaneous Vaginal Delivery Surgeon/Practitioner: Lucia Coleman Date of Procedure: 03/25/24 Pre-Procedure Diagnosis: Term gestation, Elective induction of labor Post-Procedure Diagnosis: , Live male infant Type of anesthesia: Epidural Estimated Blood Loss: 250 Time of Delivery: 16:35 Findings Description of procedure: Called to patient's bedside for feeling urge to bear down. Patient complete dila tion. Director Of Acquisition Marketing and RT at bedside for delivery. With good maternal effort, head delivered followed by anterior shoulder and remainder of body via somersault maneuver due to nuchal cord around neck and body. Vigorous male was delivered atraumatically and placed on maternal abdomen. Pitocin IV started for active management of the third stage of labor. 3 vessel cord clamped and cut after delay and infant placed immediately skin to skin with patient. Placenta delivered spontaneously and intact. Circumvallate placenta. After inspection, vagina and perineum are intact. Vaginal sweep performed. Fundus is firm 2 below U and bleeding is hemostatic. Sponge and sharps counts correct. Patient and bonding well at this time. Dr. Teixeira notified of delivery. Routine post orders placed. 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
[2024-03-25] MEDS: Oxytocin 15 Units/NS 250ml 15 UNITS/250 ML IV.SOLN 83 UNITS IV (17:10)
[2024-03-25] MEDS: Acetaminophen 500 MG Tablet 1000 MG PO (18:58)
[2024-03-26] VITALS (7 sets, daily range): BP systolic 118–131; BP diastolic 60–91; PULSE 78–95; RESP 14–16; TEMP 36.4–36.8; O2SAT 98
[2024-03-26] MEDS: Naproxen 500 MG Tablet PO (05:55)
--- NOTE | 2024-03-26 06:47 | DS.PCM_ITS ---
Providers Date of Admission: 03/25/24 Primary Care Physician: No Primary Care Phys Reason For Visit: VAGINAL DELIVERY Diagnosis Discharge Diagnosis (1) Meconium in amniotic fluid: Status: Acute Code(s): P96.83 - Meconium staining (2) (spontaneous vaginal delivery): Status: Acute Code(s): O80 - Encounter for full-term uncomplicated delivery (3) Anxiety and depression: Status: Acute Code(s): F41.8 - Other specified anxiety disorders Plan PPD 1 Routine care support D/C home after 24 hours per patient request Medications at Discharge Home Medications multivitamin no.47-iron fum 27 mg-folate no.1 1 mg-dha 300 mg capsule (PNV-DHA) 1 cap PO DAILY 08/09/23 naproxen 500 mg tablet 500 mg PO Q8H PRN PRN Pain Score 1-10 #0 tabs 03/26/24 Hospital Course Operations None Procedures None Summary of Care Provided Minutes Spent on Discharge: 15 Hospital Course: Patient had vaginal delivery. Hospital course was uneventful. Physical Exam Narrative Patient seen at bedside. Denies pain. Ambulating and voiding without difficulty. Lochia decreased. Desires discharge home today. Const alert and oriented x3 General Appearance: Negative for in distress HEENT normocephalic Eyes General Eye: normal appearance of both eyes Neck General: normal visual inspection Chest Chest: symmetrical chest wall rise Resp normal respiratory effort and normal air movement Effort and Inspection: symmetric chest movement; Negative for tachypneic Auscultation: clear to auscultation bilaterally Cardio regular rate and regular rhythm Peripheral Pulses: pulses 2+ throughout GI normal to inspection, nondistended, normoactive bowel sounds Narrative: Ice to perineum OB / External & Speculum: vaginal bleeding and other Lochia decreasing Uterus Palpation: uterus fundus firm (Below U) Extremity normal to inspection, full ROM and normal capillary refill Skin no rashes or lesions noted Neuro oriented x3, CN's II-XII intact bilaterally and gait normal Psych mental status grossly normal, thought process normal and activity/motor behavior normal Weight / BMI Weight Weight: 163 lb Body Mass Index (BMI) 27.9 ABG / Lab / Microbiology Data 03/25/24 07:50 Laboratory: Laboratory Results - last 24 hr 03/25/24 07:50: WBC 9.8, RBC 3.84 L, Hgb 9.8 L, Hct 31.1 L, MCV 81.0, MCH 25.5 L , MCHC 31.5 L, RDW Std Deviation 42.1, RDW Coeff of Zi 14.4, Plt Count 180, MPV 11.8, Immature Gran % (Auto) 0.600, Neut % (Auto) 67.7, Lymph % (Auto) 21.5, [place] % (Auto) 8.8, Eos % (Auto) 1.0, Baso % (Auto) 0.4, Absolute Neuts (auto) 6.6, Absolute Lymphs (auto) 2.10, Nucleated RBC % 0, Syphilis Total Ab Non- reactive, Blood Type A POSITIVE, Antibody Screen NEGATIVE 03/25/24 11:00: Urine Opiates Screen NEGATIVE, Urine Methadone Screen NEGATIVE, Ur Barbiturates Screen NEGATIVE, Ur Phencyclidine Scrn NEGATIVE, Ur Amphetamines Screen NEGATIVE, MDMA (Ecstasy) Screen NEGATIVE, U Benzodiazepines Scrn NEGATIVE, Urine Cocaine Screen NEGATIVE, U Cannabinoids Screen POSITIVE H, Ur Drug Screen Comment D/C Instructions Discharge Diet: No restrictions Discharge Activity: Return to Normal Activity, No Restrictions, May Drive, May Shower and May Take a Tub Bath (Warm water only. No bath salts, soaps, bubbles) May resume sexual activity in: 6-8 weeks Weight Bearing Status: Weight bearing as tolerated Call your doctor if you observe: Fever of 101 or Higher, Inability to urinate, Using more than 1 pad per hour, Shortness of breath, Dizziness, Chest pain, Calf discomfort and Uncontrolled pain DC O2, CPAP, BIPAP Needs Additional Home O2 Discharge instructions: No DC home with Oxygen: No Please Follow Up With: [facility] OLIVIA When: 2 weeks in office or virtual Meaningful Use Info Meaningful Use Meaningful Use Diagnoses (Choose all that apply): None applicable Ischemic Stroke Statin Dosing Therapy Reference: STATIN DOSE THERAPY REFERENCE: * Patients > 75 years receive moderate or high dose statin therapy. * Patients 75 years or YOUNGER should receive HIGH intensity statin dose unless contraindicated. You will be required to document reason for non-treatment if statin daily dose does not meet guidelines. HIGH DOSE STATIN THERAPY DAILY Atorvastatin > than or = to 40 mg Rosuvastatin > than or = to 20 mg Amlodipine + Atorvastatin > than or = to 2.5/40 mg Ezetimibe + Simvastatin 10/80 mg Simvastatin 80mg Discharge Plan Admission Admit Date/Time: 03/25/24 07:26 Primary Reason for Your Visit: Labor and Delivery Attending Provider: Lucia Coleman Primary Care Provider: Care Physician,No Primary Discharge Orders/Prescriptions Prescriptions: New naproxen 500 mg Tablet 500 mg PO Q8H PRN PRN (Reason: Pain Score 1-10) Qty: 0 0RF Continued PNV-DHA 27 mg iron-1 mg -300 mg capsule 1 cap PO DAILY Discontinued omeprazole 20 mg capsule,delayed release(DR/EC) 20 mg PO PRN ondansetron 4 mg tablet,disintegrating 4 mg PO Q6H PRN (Reason: nausea and vomiting) Qty: 30 2RF Referrals / Follow Up: Lucia Coleman CNM [Med Staff - Adv Practice Prof] - Care Physician,No Primary [Primary Care Provider] - Disposition Disposition (needs filled in before D/C Order can be placed): Home, Self Care
--- NOTE | 2024-03-26 11:31 | CASEMGMT ---
Social Work Assessment Labor and Delivery Unit Patient Address:[facility] [place] [address] Phone number: [phone] Date of Referral: 03/25/24 Time of Referral:? 2117 Referred By: Lucia Coleman Date of Intervention: ??03/26/24 Time of Intervention:?1034 Reason for Referral:? anxiety, depression, depression Sw completed chart review and acknowledges social work consult due to maternal mental health history. Sw presented to bedside and introduced self to mother of baby (LEONIE- Kimani) and father of baby (FODilcia- Lloyd). Sw explained reason for sw involvement and completed psychosocial assessment. History obtained from: medical records, MOB and FOB. ??? Household composition: Currently residing in the family home is LIZABETH HADLEY, their two older sons: Jomar (6) and Thaddeus (3). baby to be added to residence when ready for discharge. Parents deny any issues or concerns with current housing, stating that it is safe and secure. Patient's parent/guardian status:?Parents report that they have been together for 7 years, after starting to date each other while in high school. They had their first baby while they were both seniors. They have been for one year. baby is third child for both parents, together. No concerns reported of domestic violence or intimate partner violence. ? Medical History: ?LEONIE is 23 year old female who is 4, para 2- now 3 following labor and delivery of . LEONIE did experience a loss at 23 weeks gestation at which time her baby was at . LEONIE received routine care during with [place]. LEONIE presented to hospital for scheduled elective induction of labor at 39 weeks gestation. LEONIE delivered baby on 03/25/24 via vaginal delivery. Baby boy, named Herrera Kuhn, was born weighing 7lb 11oz with apgars of 8 and 9 at one and five minutes of life, respectfully. LEONIE states that she is breast feeding and baby will be followed by Dr. Soriano for pediatrics. Educational Status:? LIZABETH states that he graduated from high school, MOB completed 11th grade. No concerns with reading, learning or comprehension. 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 LEONIE is a stay at home mom. Infant Supplies: Parents report that they have obtained all necessary baby supplies, including: car seat, safe sleep space, clothes, diapers and wipes. Childcare/Caregiver(s):? LEONIE is a stay at home mom and will be the primary caregiver to baby, along with FOB when he is not working. Transportation:??Both parents drive and have reliable means of transportation. NO barriers at this time. Programs/Agencies Involved: LEONIE states that she and her other children are connected to insurance through [employer] ([facility]), and baby will also be added. MOB states that she is not receiving SNAP, but is considering WIC. Vickie informed MOB that it can take 4 weeks to be seen in [facility] and encouraged MOB to make an appointment sooner than later. ??? Children Services/Legal Issues:???Parents deny history of involvement with children services. Vickie explained to parents that sw will be making referral to [facility] Children Services due to maternal substance use of THC during . Parents express understanding. - Vickie called [facility] and spoke to hotline screener, Rubina Cespedes took the report and stated it would be submitted to the supervisor harvesting for review, if screened in the worker will follow up with family at home once discharged. Behavioral Health Issues: ??Mental Health History:LIZABETH denies mental health history. LEONIE states that she has been diagnosed with anxiety and depression. MOB states that those diagnoses are from her childhood when she struggled with feeling abandoned from her mother. MOB states that she has a relationship with her mom now. MOB states that she also struggled with depression following the delivery of her second baby. LEONIE has used medication in the past to help manage her mental health symptoms, but is not currently prescribed anything. ??? Substance Use History:?MOB states that she used marijuana during to help with nausea. MOB states that the frequency was about one time a week, with the last time being about a week or two ago. MOB states that now that baby is born she does not have any intentions of continuing to use. FOB states that she does smoke marijuana. He reports to smoking out in the detached garage away from the primary home and children. ? Family History:???FOB states that his father and step dad were both alcoholics. He has been mindful of this and does not drink. LEONIE reports that her mom had issues with alcohol, but does not any longer. Parents were reminded to be mindful of the genetic disposition and to not seek comfort from drugs or alcohol. Positive and healthy coping skills discussed. ?? Drug Screens: MOB urine screen at time of delivery was positive for THC. Baby's urine screen was negative and the meconium is still pending. Family/Social Stressors:? Parents deny any issues, concerns or stressors at this time. Support Systems: Parents report that each other is their biggest supports, along maternal grandma and paternal grandma. Depression/Shaken Baby/Safe Sleeping: Vickie educated parents on signs and symptoms of baby blues and mood and anxiety disorders to be mindful of. MOB states that when she struggled with her mental health after her second son was born, she had just lost her grandma and was grieving that loss, along with several other issues that they were working through at that time. MOB states that currently she feels really good mentally, and is not worried about struggling with her mental health during this period. MOB states that if she would struggle, she would talk to FOB and also reach out to her OBGYN. Vickie educated parents on shaken baby prevention and ABCs of safe sleep. Parents express understanding. ASSESSMENT:? MOB and baby admitted following labor and delivery of . MOB with history of mental health in the past and depression after her last baby was born. MOB states that she is feeling good so far after delivery, and has a plan going forward with this journey. MOB receptive to discussing healthy and appropriate coping skills that she feels comfortable utilizing if she were to struggle with her mental health. MOB also receptive to talking to FOB, family and OBGYN if she feels that she is not coping well. MOB admits to smoking marijuana once a week throughout , with the last time being a week or two ago. MOB urine screen positive for THC, baby was negative (meconium pending). FOB also admits to marijuana use on a regular basis outside of the home. Parents have everything that they need for baby and natural resources in place. Parents understanding of need for referral to be made to children services. Safe Plan of Care for infant related to substance use:? MOB denies intention of continuing to use now that baby has been born. PLAN:?? No other services requested or indicated. MOB and baby to be discharged when medically ready. Parents were provided literature regarding: signs and symptoms of baby blues and mood and anxiety disorders, Help Me Grow, shaken baby prevention, ABCs of safe sleep and a list of county resources that are available for them should any needs present themselves. Salvador Rae, ATTENDING PHYSICIAN, ENVIRONMENTAL MANAGEMENT SPECIALIST
[2024-03-26] MEDS: Ferrous Sulfate 325 MG Tablet PO (12:34)
[2024-03-26] MEDS: FLU VACC 2024-25(6MOS UP)/PF 45 MCG/0.5 ML SYRINGE IM (12:35)
--- NOTE | 2024-03-30 11:52 | NURSING ---
Follow up phone call made. Patients states she is doing well, having no pain and only minimal bleeding. Denies any headaches, visual disturbance, or Baby Blues. Patient states she switched to formula feeding and Herrera is doing well, eating every 2-3 hours. Denies any questions or concerns at this time.
== END 2024-03-26 17:40 | disposition home or self-care (01) | DRG 560 ==
PROVIDERS: Admitting Provider Advanced Practice Midwife; Referring Provider Advanced Practice Midwife; Visit Provider Advanced Practice Midwife
DX: O43.113 Circumvallate placenta, third trimester (principal); Z37.0 Single live birth; O40.3XX0 Polyhydramnios, third trimester, not applicable or unspecified; O69.1XX0 Labor and delivery complicated by cord around neck, with compression, not applicable or unspecified; O77.0 Labor and delivery complicated by meconium in amniotic fluid; Z3A.39 39 weeks gestation of pregnancy; Z87.891 Personal history of nicotine dependence
CPT/HCPCS: 59025; 59050; 80307; 85025; 86780; 86850; 86900; 86901; 90656; 99221; J7120; A4216; G0378; J2405

== ENCOUNTER 2024-09-30 10:12 | Emergency (ER) | payer MEDICAID, SELFPAY ==
[2024-09-30 10:13] VITALS: BP 117/84; PULSE 88; RESP 18; TEMP 36.8; O2SAT 98; BMI 18.8
--- NOTE | 2024-09-30 11:30 | EX.ED.DYSGE1 ---
HPI History of Present Illness Chief Complaint: General Illness Narrative Narrative: Chief complaint and HPI: 24-year-old female with recurrent UTI presents for evaluation of fever, body aches, and cough. Onset of symptoms 3 days ago. Associated symptom is also nasal congestion. Denies any headache, facial tenderness, ear pain, sore throat, shortness of breath, chest pain, abdominal pain, nausea, vomiting, diarrhea. States she has had some dysuria and smell to her urine. Concerned she could have a UTI. Normal menstrual cycles. Last had intercourse 2 days ago. No concern for STI. Does not believe herself to be . Review of systems: See HPI Medications: As listed on the chart Allergies: As listed on the chart PFSH: Per chart Vital signs: As listed on the chart. Reviewed. Physical exam: Gen: A&O x3, NAD Head: Normocephalic, atraumatic Eyes: No sclera icterus, conjunctiva clear, PERRL, EOMI ENT: TMs clear BL, moist mucous membranes, posterior oropharynx unremarkable, uvula midline, tonsils not enlarged, no tonsillar exudates Neck: Trachea midline, No JVD, Full ROM, No meningismus CV: RRR, no murmurs, no peripheral edema Resp: Lungs CTA BL, no w/r/c, + dry cough GI: Abd soft, non-distended, non-tender, no r/r/g : No CVA tenderness Musc: Full ROM, no deformity Skin: Warm, dry, no rash Neuro: Alert, oriented, grossly intact, sensation intact Psych: Cooperative, appropriate mood and affect [facility] Medical History (Updated 09/30/24 @ 12:[address] Ihsan Heart, ) (spontaneous vaginal delivery) Polyhydramnios depression Depression Anxiety Circumvallate placenta Thrombocytopenia affecting Abdominal pain of right lower quadrant during , antepartum History of miscarriage, currently Supervision of high-risk Chromosome abnormality fetus, affect management of mother, antepartum Easy bruising Incomplete UTI in [place] Left renal stone Marijuana use Low iron Migraine headache Vapes nicotine containing substance History of stress test depression Fatigue Pilonidal cyst Anxiety and depression Home Medications ?Medication ?Instructions ?Recorded ?Last Taken ?Type multivitamin no.47-iron fum 27 1 cap PO DAILY 08/09/23 02/22/24 22:00 History mg-folate no.1 1 mg-dha 300 mg capsule (PNV-DHA) naproxen 500 mg tablet 500 mg PO Q8H PRN PRN Pain Score 03/26/24 Unknown Rx 1-10 #0 tabs amoxicillin 875 mg-potassium 1 tab PO BID 5 days #10 tabs 09/30/24 Unknown Rx clavulanate 125 mg tablet Allergy/AdvReac Type Severity Reaction Status Date / Time cephalexin (From Keflex) AdvReac Other Verified 09/30/24 10:15 Family History Father Arthritis Diabetes Hypertension High cholesterol Mother Arthritis Hypertension Lupus Wxdqd-Jnwvrivkr-Tvvpp (WPW) syndrome Grandmother Thyroid cancer, Onset Age: 70 Maternal Surgical History Status post dilation and curettage Hx of wisdom tooth extraction History of laparoscopy Social History adopted: No household members: spouse and children housing: house number of children: 2 current occupational status: unemployed current occupation: [employer] current occupational exposures/hazards: No pets and animals: Yes (2) pets and animals: dog(s) history of recent travel: No sexually active: Yes Smoking Status: Former smoker quit date: 07/22/23 second hand exposure: No alcohol intake: never substance use type: does not use diet: lactose free well-balanced diet: daily or most days caffeine: No eating out: 1-3 times/week during the past year weight has: remained stable what type of physical activity do you participate in: none amish/muslim: None seatbelt use: always do you feel safe at home: Yes 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 history: Lloyd () EXAM Physical Exam Const Vital Signs: 09/30/24 10:12 09/30/24 10:13 09/30/24 12:12 Temperature 98.2 F Temperature Source Oral Pulse Rate 88 63 Respiratory Rate 18 Respiratory Effort Normal Non-Labored Respiratory Pattern Normal Blood Pressure 117/84 H 107/82 H Blood Pressure Mean 95 90 Pulse Ox 98 100 Oxygen Delivery Method Room Air 09/30/24 12:49 Temperature 98 F Temperature Source Pulse Rate 63 Respiratory Rate 16 Respiratory Effort Respiratory Pattern Blood Pressure 107/82 H Blood Pressure Mean 90 Pulse Ox 100 Oxygen Delivery Method MDM MDM MDM Narrative Medical decision making narrative: 24-year-old female with recurrent UTI presents for evaluation of fever, body aches, and cough. Onset of symptoms 3 days ago. Associated symptom is also nasal congestion and dysuria. No back pain. Patient is no acute distress, nontoxic. Vitals are stable. Physical exam is unremarkable. Differential diagnosis includes but is not limited to viral illness, COVID-19 infection, influenza, pneumonia, UTI. I do not think any laboratory workup is needed at this time. UA and urine ordered. COVID, flu, RSV and chest x-ray ordered. Chest x-ray was personally viewed interpreted by me, ED physician. No pneumonia, effusion, cardiomegaly, pneumothorax. Radiology in agreement. COVID, flu, RSV negative. UA is positive for UTI. Urine culture sent. On previous urine cultures, patient was positive for E. coli that was pansensitive. Patient has allergy to Keflex. Will place her on a 5-day course of Augmentin. Urine negative. This point in time, I suspect patient's symptoms are secondary to viral syndrome and UTI. Follow-up with PCP and urologist. Return back to the ED if symptoms change or worsen. She confirmed understanding of the plan. Patient stable to discharge home. Impression: 1. Viral syndrome 2. UTI Lab Data Labs: Laboratory Results - last 24 hr 09/30/24 11:12 Urine Color Yellow Urine Clarity Clear Urine pH 6.0 Ur Specific [place] 1.020 Urine Protein 100 H Urine Glucose (UA) Normal Urine Ketones 50 H Urine Occult Blood 10 H Urine Nitrite Positive H Urine Bilirubin Negative Urine Urobilinogen Normal Ur Leukocyte Esterase 25 H Urine RBC 0-5 SEEN Urine WBC 0-5 SEEN Ur Squamous Epith Cells 0-5 SEEN Urine Bacteria 2+ Urine Mucus 2+ Urine Test Negative Radiography Diagnostic Testing: Clinical Impression(s) from Imaging Studies Chest X-Ray 09/30/24 11:34 IMPRESSION: No acute cardiopulmonary process. Reading Location: [facility] Discharge Plan Triage Chief Complaint: General Illness ED Provider: Ihsan Heart Dx/Rx/DC Orders Clinical Impression: Viral syndrome, UTI (urinary tract infection) Instructions: Urinary Tract Infections in Women, ED Viral Syndrome (Adult) Prescriptions: New amoxicillin-pot clavulanate 875-125 mg tablet 1 tab PO BID 5 Days Qty: 10 0RF No Action PNV-DHA 27 mg iron-1 mg -300 mg capsule 1 cap PO DAILY naproxen 500 mg Tablet 500 mg PO Q8H PRN PRN (Reason: Pain Score 1-10) Qty: 0 0RF Primary Care Provider: Care Physician,No Primary Referrals: Shy Henry MD [Med Staff - Active Staff] - 3-5 Days Pilo Angeles MD [Med Staff - Active Staff] - 3-5 Days Activity Restrictions/Additional Instructions: Follow-up with primary care physician as well as urologist. Return back to the ED if symptoms change or worsen. If you do not have 1 follow-up with the 1 provided above. Print Language: Tajik Disposition Disposition: Home, Self Care Discharge Date/Time: 09/30/24 13:05
[2024-09-30 11:31] LABS: Color, Urine Yellow (Yellow); Glucose, Dipstick Normal (Normal); Ketone-Dipstick 50 mg/dl (Negative); Leukocyte Esterase-Dipstick 25 /ul (Negative); Nitrite-Dipstick Positive (Negative); Occult Blood-Urine 10 /ul (Negative); Protein-Dipstick 100 mg/dl (Negative); Urine Bilirubin Dipstick Negative (Negative); Urine Clarity Clear (Clear); Urine Urobilinogen Normal (Normal)
--- NOTE | 2024-09-30 11:34 | RAD_ITS ---
EXAM: XR Chest, 2 Views CLINICAL INDICATION: COUGH TECHNIQUE: Frontal and lateral views of the chest. COMPARISON: No relevant prior studies available. FINDINGS: LUNGS AND PLEURAL SPACES: Unremarkable. No consolidation. No pneumothorax. HEART: Unremarkable. No cardiomegaly. MEDIASTINUM: Unremarkable. Normal mediastinal contour. BONES/JOINTS: Unremarkable. No acute fracture. RAD/Chest PA and Lateral IMPRESSION: No acute cardiopulmonary process. Reading Location: [facility]
[2024-09-30 11:44] LABS: Internal QC Validated? YES +Cl - CLEAR BKGD; Pregnancy, Urine Negative Negative
[2024-09-30 12:12] VITALS: BP 107/82; PULSE 63; O2SAT 100
[2024-09-30 12:49] VITALS: BP 107/82; PULSE 63; RESP 16; TEMP 36.6; O2SAT 100
--- NOTE | 2024-09-30 12:49 | CM.ED ---
Social work Reason for referral: no PCP Referral source: case find This SW identified patient's lack of PCP and need for resources. Patient confirmed lacking a PCP and losing the [facility] paper that patient previously had. Patient received [facility] Provider Directory and new [facility] information sheet. Patient denied further needs at this time. Sri Stubbs, MANGANESE BREAKER, ACADEMIC INTERVENTIONIST
[2024-09-30 13:08] LABS: Bacteria 2+ /hpf (None Seen); Squamous Epithelial Cells - UA 0-5 SEEN /hpf (5-10)
[2024-09-30 13:10] LABS: White Blood Cells 0-5 SEEN /hpf (0-5)
[2024-09-30 13:11] LABS: Red Blood Cells-Urine 0-5 SEEN /hpf (0-5)
[2024-09-30 13:14] LABS: Mucous, Urine 2+ /hpf (<or=2+)
== END 2024-09-30 13:05 | disposition home or self-care (01) ==
PROVIDERS: Emergency Provider Surgery; Visit Provider Surgery
DX: B34.9 Viral infection, unspecified (principal); N39.0 Urinary tract infection, site not specified; Z87.891 Personal history of nicotine dependence
CPT/HCPCS: 71046; 81001; 81025; 87077; 87086; 87088; 87186; 87631; 99282; A4216

== ENCOUNTER 2025-05-02 11:55 | Outpatient (CLI) | payer MEDICAID, SELFPAY ==
--- OUTSIDE RECORDS SUMMARY | 2025-05-02 12:02 | XMS RPT_ITS | CCD ---
Author Organization [facility] ion [facility] Care Team Providers Care Settlement Clerk Name Role Phone GEOVANNY CLINTON Unavailable Unavailable NO FAMILY PHYSICIAN, [address] Deysi Soriano Primary Care Provider Dr. Deysi Soriano Referring Provider Dr. Tony Gloria Attending Provider Care Physician, No Primary Primary Care Provider Unavailable Care Physician, No Primary Referring Provider Un available Kenmare CARETAKER GROUNDS, CARETAKER GROUNDS-C Sandra Attending Provider CAM Cooper Attending Provider Care Physician, No Primary Primary Care Provider Unavailable Care Physician, No Primary Referring Provider Un available Bertha CARETAKER GROUNDS, CARETAKER GROUNDS-C Sandra Attending Provider [phone] JANNA Valencia Attending Provider Unavailabl JOLYNN Rodas Attending Provider [phone] JOLYNN Anderson Attending Provider PHYSICIAN, NONE Primary Care Physician Unavailab Dr. Palmira López Attending Provider [phone] Dr. Palmira Duncan Referring Provider [phone] Dr. Palmira Duncan Other Provider BROWN GRAVES MD Attending Unavailable PHYSICIAN, NONE Primary Care Unavailable Care Physician, No Primary Primary Care Provider Unavailable Care Physician, No Primary Referring Provider Un available Kenmare CARETAKER GROUNDS, CARETAKER GROUNDS-C Sandra Attending Provider Care Physician, No Primary Primary Care Provider Unavailable JANNA Valencia Attending Provider Unavailabl e Care Physician, No Primary Referring Provider Un available Bertha CARETAKER GROUNDS, CARETAKER GROUNDS-C Sandra Attending Provider [phone] JOLYNN Ramos Attending Provider [phone] JOLYNN Anderson Attending Provider Holly Oliva, Dr. Chavis Attending Provider [phone] Dr. Palmira Duncan Referring Provider [phone] Dr. Palmira Duncan Other Provider Care Physician, No Primary Primary Care Provider Unavailable Care Physician, No Primary Referring Provider Un available JOLYNN Ramos Attending Provider [phone] Care Physician, No Primary Primary Care Provider Unavailable Care Physician, No Primary Referring Provider Un available NO PRIMARY CARE, Primary Care Unavailable TONY GLORIA Referring Unavailabl e SAEED BRYANT Attending Unavailable Unavailable Primary Care Provider Unavailabl e BERTRAM CABRERA Attending Unavailable BERTRAM CABRERA Admitting Unavailable Care Physician, No Primary Primary Care Provider Unavailable Dr. Ihsan Heart DO Emergency Provider Care Physician, No Primary Primary Care Physicia n Unavailable Carl BULLARD, Dr. Begum Attending Physician Care Physician, No Primary Referring Provider Un available Chata Braun Attending Unavailable Chata Braun Referring Unavailable Care Physician, No Primary Primary Care Unava ilable PlotKaya london Admitting Unavailable PlotKaya london Attending Unavailable Plotts, Kaya Referring Unavailable Care Physician, No Primary Primary Care Unava ilable Ihsan Heart Attending Unavailabl e Care Physician, No Primary Primary Care Unava ilable Care Physician, No Primary Referring Unava ilable Shy Henry Attending Unavailable Care Physician, No Primary Primary Care Unava ilable MAICO SOSA Attending Unavailable MAICO SOSA Attending Unavailable PLOTTS, KAYA Referring Unavailable PLOTTSKAYA Attending Unavailable PLOTTSKAYA Attending Unavailable PLOTTS, KAYA Referring Unavailable DAFNE BRADLEY Attending Unavailable PALMIRA PALMER Attending Unavailable RUSTY LARA Attending Unavail able PLOTTSKAYA Attending Unavailable PLOTTS, KAYA Referring Unavailable JAN CANTU Attending Unavailable PLOTTS, KAYA Referring Unavailable MACARENA MEHTA Attending Unavailable PLOTTS, KAYA Referring Unavailable MURIEL ESTRADA Attending Unavailable PLOTTS, KAYA Referring Unavailable PLOTTS, KAYA Referring Unavailable PLOTTS, KAYA Referring Unavailable RAJGURU, DAFNE J Attending Unavailable RAJGURU, DAFNE J Referring Unavailable SELF Referring Unavailable PLOTTS, KAYA Attending Unavailable PLOTTS, KAYA Referring Unavailable PALMIRA PALMER Attending Unavailable RAJGURU, DAFNE J Referring Unavailable PLOTTS, KAYA Referring Unavailable JAN CANTU Attending Unavailable PALMIRA PALMER Attending Unavailable PLOTTS, KAYA Attending Unavailable PLOTTS, KAYA Referring Unavailable PLOTTS, KAYA Attending Unavailable PLOTTS, KAYA Attending Unavailable RAJGURU, DAFNE J Referring Unavailable RAJGURU, DAFNE J Attending Unavailable PLOTTS, KAYA Referring Unavailable MAXIMO GOETZ Attending Unavailable PLOTTS, KAYA Attending Unavailable JAMES HARGROVE Attending Unavailable RAJGURU, DAFNE J Referring Unavailable RAJGURU, DAFNE J Attending Unavailable Allergies Allergy Classification Reported Allergen(s) Allergy Type Date of Onset Reaction(s) Facility (20 sources) Cephalexin; Translations: [CEPHALEXIN] Drug Allergy 4 Other: See Comments [facility] Comment on above: thrombocytopenia (1 source) Cephalexin Drug Allergy 5 [facility] Repository Medications Current Medications Medication Drug Class(es) Dates Sig (Normalized) Sig (Original) acetaminophen 500 mg oral tablet (20 sources) take 2 tablets by mouth every eight hours as needed acetaminophen (TYLENOL EXTRA STRENGTH) 500 mg tablet Take 1,000 mg by mouth every 8 hours as needed. Active amoxicillin 875 mg / clavulanate 125 mg oral tablet (20 sources) Penicillin-class Antibacterial Start: 09-30-2024 End: 02-09-2025 take 1 tablet by mouth twice daily amoxicillin-clavul anate potassium (AUGMENTIN) 875-125 mg per tablet Take 1 tablet by mouth two times a day for 7 days. 14 tablet 11/28/2024 12/05/2024 Active Start: 09-18-2022 End: 09-28-2022 Amoxicillin-Pot Clavulanate 875-125 mg tablet Discontinued 1 {tbl} PO Q12H 20 10 0 September 18, 2022 12:00am September 27, 2022 12:00am September 28, 2022 12:04am Acute sinusitis, unspecified Start: 09-18-2022 End: 09-28-2022 take 1 tablet by mouth every twelve hours Amoxicillin-Pot Clavulanate Discontinued 1 TABLET PO Q12H 20 September 18, 2022 12:00am September 28, 2022 12:04am aspirin 81 mg delayed release oral tablet (15 sources) Platelet Aggregation Inhibitor, Nonsteroidal Anti-inflammatory Drug Start: 11-11-2024 take 1 tablet by mouth once daily aspirin, enteric coated (ECOTRIN LOW STRENGTH) 81 mg EC tablet Indications: with uncertain dates, antepartum (HCC) Take 1 tablet by mouth once daily. 90 tablet 3 11/11/2024 Active benzonatate 100 mg oral capsule (1 source) Non-narcotic Antitussive Start: 06-02-2019 benzonatate (TESSALON PERLES) 100 mg capsule Take 1-2 capsules tid prn, no more than 6 in 24 hours. 30 capsule 0 06/02/2019 Active cefdinir 300 mg oral capsule (1 source) Cephalosporin Antibacterial Start: 12-08-2022 take 300 mg by mouth every twelve hours Cefdinir Active 300 MG PO Q12H December 08, 2022 12:00am cephalexin 500 mg oral capsule (20 sources) Cephalosporin Antibacterial Start: 09-30-2024 take 1 capsule by mouth every twelve hours Cephalexin 500 mg capsule Active 500 mg PO EVERY 12 HOURS 02 07September 30, 2024 12:00am Start: 01-17-2024 End: 02-19-2024 cephALEXin (KEFLEX) 500 mg c apsule 01/17/2024 02/19/2024 Discontinued Start: 01-17-2024 End: 02-24-2024 take 1 capsule by mouth twice daily Cephalexin 500 mg capsule Discontinued 500 mg PO TWICE A DAY 14 7 0 January 17, 2024 12:00am February 24, 2024 1:47pm Start: 09-12-2023 End: 12-03-2023 take 1 capsule by mouth twice daily Cephalexin 500 mg capsule Discontinued 500 mg PO TWICE A DAY 60 6 September 12, 2023 11:28am December 03, 2023 11:25am Start: 08-20-2023 End: 11-21-2023 cephALEXin (KEFLEX) 250 mg c apsule Start: 07-29-2023 End: 09-12-2023 take 1 capsule by mouth every twelve hours Cephalexin 500 mg capsule Discontinued 500 mg PO EVERY 12 HOURS 14 0 July 29, 2023 12:00am September 12, 2023 11:16am Start: 05-20-2023 End: 05-27-2023 cephalexin 500 mg oral table t Dose : 500 mg = 1 tab(s), PO, BID, X 7 day(s), # 14 tab(s), 0 Refill(s), 05/27/23 9:14:00 PM EST Start Date: 05/20/23 Stop Date: 05/27/23 Status: Ordered Start: 01-10-2023 End: 04-03-2023 take 1 capsule by mouth every twelve hours Cephalexin 500 mg capsule Discontinued 500 mg PO EVERY 12 HOURS 6 3 0 January 10, 2023 12:00am April 03, 2023 1:08pm post-operative Start: 03-13-2020 End: 03-15-2020 take 1 capsule by mouth every six hours Cephalexin 500 MG capsule Discontinued 500 mg PO EVERY 6 HOURS 28 0 March 13, 2020 1:00am March 15, 2020 12:46pm cranberry preparation 1000 mg oral capsule (5 sources) Non-Standardized Food Allergenic Extract, Non-Standardized Plant Allergenic Extract Start: 12-31-2022 take 1000 mg by mouth once daily Cranberry Active 1000 MG PO DAILY December 30, 2022 11:00pm administer with a meal elagolix 150 mg oral tablet (1 source) Start: 02-25-2019 take 1 tablet by mouth once daily elagolix (ORILISSA) 150 mg tab Take 1 tablet by mouth once daily. 30 tablet 11 02/25/2019 Active FLUoxetine 20 mg oral capsule (20 sources) Serotonin Reuptake Inhibitor Start: 08-19-2024 End: 01-13-2025 take 1 capsule by mouth once daily FLUoxetine (PROZAC) 20 mg capsule Take 1 capsule by mouth once daily. 90 capsule 10/15/2024 Active Start: 05-07-2024 End: 07-06-2024 take 1 capsule by mouth once daily FLUoxetine (PROZAC) 20 mg capsule Take 1 capsule by mouth once daily. Start after 14 days of 10 mg dose. 30 capsule 1 05/07/2024 Active Start: 05-07-2024 End: 05-21-2024 take 1 capsule by mouth once daily FLUoxetine (PROZAC) 10 mg capsule Take 1 capsule by mouth once daily for 14 days. 14 capsule 05/07/2024 Active Start: 05-23-2017 End: 07-24-2017 take 1 capsule by mouth once daily Fluoxetine (Prozac) 40 mg capsule Discontinued 40 mg PO daily May 23, 2017 1:00am July 24, 2017 3:43pm End: 11-21-2023 FLUoxetine (PROZAC) 20 mg ca psule Take 20 mg by mouth. 0 11/21/2023 Discontinued 12 hr guaiFENesin 600 mg extended release oral tablet (1 source) Start: 06-02-2019 take 2 tablets by mouth twice daily guaiFENesin (MUCINEX) 600 mg 12 hr tablet Take 2 tablets by mouth twice daily. 24 tablet 0 06/02/2019 Active hydrocortisone 25 mg/ml topical cream (1 source) Corticosteroid Start: 03-19-2024 End: 03-26-2024 hydrocortisone (ANUSOL-HC) 2.5 % rectal cream by RECTAL route two times a day for 7 days. 28 g 03/19/2024 03/26/2024 Active medroxyPROGESTERone acetate 10 mg oral tablet (20 sources) Progestin Start: 01-23-2019 take 1 tablet by mouth once daily medroxyPROGESTERone (PROVERA) 10 mg tablet Take 1 tablet by mouth once daily for 10 days. 10 tablet 0 01/23/2019 Active Start: 09-17-2018 End: 09-17-2018 inject 150 mg by intramuscular injection once Depo-Provera (medroxyprogesterone) 150 mg/mL intramuscular syringe Discontinued 150 MG IM ONCE September 17, 2018 2:13pm September 17, 2018 2:26pm Start: 06-24-2018 End: 06-24-2018 inject 150 mg by intramuscular injection once Depo-Provera (medroxyprogesterone) 150 mg/mL intramuscular syringe Discontinued 150 MG IM ONCE June 24, 2018 3:45pm June 24, 2018 4:51pm Start: 06-24-2018 End: 03-04-2019 inject 150 mg by intramuscular injection every three months Medroxyprogesterone 150 mg/mL syringe Discontinued 150 mg IM every 3 months 1 June 24, 2018 4:11pm March 04, 2019 11:17am Start: 06-24-2018 End: 03-04-2019 inject 150 mg by intramuscular injection every three months Medroxyprogesterone Discontinued 150 MG IM every 3 months June 24, 2018 3:11pm March 04, 2019 10:17am Multivit 41-Xiwl-Stoodg 1-Dh a (Pnv-Dha) 27 mg iron-1 mg -300 mg capsule (6 sources) Start: 08-09-2023 Multivit 47-Ir on-Folate 1-Dha (Pnv-Dha) 27 mg iron-1 mg -300 mg capsule Active 1 NMA PO DAILY August 09, 2023 12:00am Complies with drug therapy Start: 08-09-2023 Multivit 47-Ir on-Folate 1-Dha (Pnv-Dha) 27 mg iron-1 mg -300 mg capsule Active 1 NMA PO DAILY August 09, 2023 12:00am Start: 08-09-2023 Multivit 47-Ir on-Folate 1-Dha (Pnv-Dha) 27 mg iron-1 mg -300 mg capsule Active CAP PO August 09, 2023 12:00am naproxen 500 mg oral tablet (20 sources) Nonsteroidal Anti-inflammatory Drug Start: 03-26-2024 take 1 tablet by mouth every eight hours as needed for pain Naproxen 500 mg Tablet Active 500 mg PO EVERY 8 HOURS NEEDED as needed for Pain Score 1-10 0 0 March 26, 2024 1:00am Complies with drug therapy Start: 03-31-2019 End: 10-07-2019 take 1 tablet by mouth twice daily as needed Naproxen 500 MG tablet Discontinued 500 mg PO TWICE DAILY NEEDED March 31, 2019 1:00am October 07, 2019 9:29am nitrofurantoin, macrocrystals 25 mg / nitrofurantoin, monohydrate 75 mg oral capsule (20 sources) Nitrofuran Antibacterial Start: 01-11-2025 End: 01-18-2025 take 1 capsule by mouth twice daily nitrofurantoin monohydrate and macrocrystal (MACROBID) 100 mg capsule Take 1 capsule by mouth two times a day for 7 days. 14 capsule 01/11/2025 01/18/2025 Active Start: 12-16-2024 End: 12-21-2024 take 1 capsule by mouth twice daily nitrofurantoin monohydrate and macrocrystal (MACROBID) 100 mg capsule Take 1 capsule by mouth two times a day for 5 days. 10 capsule 12/16/2024 12/21/2024 Start: 04-30-2024 End: 05-07-2024 take 1 capsule by mouth twice daily nitrofurantoin monohydrate and macrocrystal (MACROBID) 100 mg capsule Take 1 capsule by mouth two times a day for 7 days. 14 capsule 04/30/2024 05/07/2024 Start: 03-16-2024 End: 03-23-2024 take 1 capsule by mouth twice daily nitrofurantoin monohydrate and macrocrystal (MACROBID) 100 mg capsule Take 1 capsule by mouth two times a day for 7 days. 14 capsule 03/16/2024 03/23/2024 Active Start: 02-24-2024 End: 03-02-2024 take 1 capsule by mouth twice daily nitrofurantoin monohydrate and macrocrystal (MACROBID) 100 mg capsule Take 1 capsule by mouth two times a day for 7 days. 14 capsule 02/24/2024 03/02/2024 Active Start: 12-26-2023 End: 01-03-2024 take 1 capsule by mouth twice daily nitrofurantoin monohydrate and macrocrystal (MACROBID) 100 mg capsule Take 1 capsule by mouth two times a day. 14 capsule 12/26/2023 01/03/2024 Discontinued (Course of therapy completed) Start: 04-03-2023 End: 04-10-2023 take 1 capsule by mouth twice daily at mealtime Nitrofurantoin Monohyd/M-Cryst (Macrobid) 100 mg capsule Discontinued 100 mg PO TWICE A DAY 14 7 0 April 03, 2023 1:00am April 09, 2023 1:00am April 10, 2023 1:05am must administer with a meal/food Start: 07-07-2021 End: 07-14-2021 take 1 capsule by mouth every twelve hours at mealtime Nitrofurantoin Monohyd/M-Cryst (Macrobid) 100 mg capsule Discontinued 100 mg PO Q12H 14 7 0 July 07, 2021 1:00am July 13, 2021 1:00am July 14, 2021 1:03am administer with a meal/food; swallow whole; do not open, crush, dissolve , or chew ondansetron 4 mg oral tablet (20 sources) Serotonin-3 Receptor Antagonist Start: 12-21-2024 take 1 tablet by mouth every eight hours as needed for nausea ondansetron (ZOFRAN) 4 mg tablet Indications: Nausea and vomiting during (HCC) Take 1 tablet by mouth every 8 hours as needed for nausea/vomiting. 60 tablet 1 12/21/2024 Active Start: 09-06-2023 End: 04-15-2024 take 1 tablet by mouth every six hours as needed for nausea and vomiting Ondansetron 4 mg tablet,disintegrating Discontinued 4 mg PO EVERY 6 HOURS as needed for nausea and vomiting 30 2 October 07, 2023 8:15am March 26, 2024 7:48am Nausea and vomiting Nausea with vomiting, unspecified Start: 10-04-2021 End: 12-08-2022 take 1 tablet by mouth every eight hours as needed for nausea Ondansetron 4 MG tablet Discontinued 4 mg PO EVERY 8 HOURS NEEDED as needed for Nausea October 04, 2021 12:00am December 08, 2022 12:36pm Start: 03-31-2019 End: 10-07-2019 take 1 tablet by mouth every eight hours as needed for nausea Ondansetron 4 MG tablet Discontinued 4 mg PO EVERY 8 HOURS NEEDED as needed for Nausea May 21, 2019 1:00am October 07, 2019 9:29am Completed/Discontinued Medications Medication Drug Class(es) Dates Sig (Normalized) Sig (Original) acetaminophen 325 mg / oxyCODONE hydrochloride 5 mg oral tablet (20 sources) Opioid Agonist Start: 05-22-2023 End: 08-09-2023 take 1-2 tablets by mouth every four hours as needed for pain Oxycodone-Acetaminop hen (Percocet) 5-325 mg tablet Discontinued 1 {tbl} PO Q4H as needed for pain 10 7 0 May 22, 2023 August 09, 2023 9:59am Incomplete Status post dilation and curettage Incomplete spontaneous without complication Other specified postprocedural states 1-2 tabs q 4 hrs as needed for pain Start: 01-10-2023 End: 02-13-2023 Oxycodone-Acetaminophen (Per cocet) 5-325 mg tablet Discontinued 1 {tbl} PO Q8H as needed for pain 10 3 0 January 10, 2023 February 13, 2023 9:10am Calculus of left kidney Calculus of kidney [id number] actuat albuterol 0.09 mg/actuat metered dose inhaler (3 sources) beta2-Adrenergic Agonist Start: 01-14-2024 End: 01-22-2024 take 1-2 puff(s) by inhalation every four hours as needed for wheezing albuterol HFA (VENTOLIN HFA) 90 mcg/actuation inhaler Indications: Bronchitis Inhale 1-2 Puffs as instructed every 4 hours as needed for wheezing/shortness of breath. 1 Each 01/14/2024 01/22/2024 Discontinued (Discontinued by Patient) amoxicillin 875 mg oral tablet (20 sources) Penicillin-class Antibacterial Start: 11-25-2024 End: 11-30-2024 take 1 tablet by mouth twice daily amoxicillin (AMOXIL) 875 mg tablet Take 1 tablet by mouth two times a day for 5 days. 14 tablet 11/25/2024 11/28/2024 Discontinued Start: 11-02-2024 End: 11-09-2024 take 1 tablet by mouth twice daily amoxicillin (AMOXIL) 875 mg tablet Take 1 tablet by mouth two times a day for 7 days. 14 tablet 11/02/2024 11/09/2024 Active Start: 03-15-2020 End: 03-22-2020 take 1 tablet by mouth three times daily Amoxicillin 500 mg tablet Discontinued 500 mg PO THREE TIMES A DAY 21 7 0 March 15, 2020 1:00am March 21, 2020 1:00am March 22, 2020 1:03am cetirizine hydrochloride 10 mg oral tablet (3 sources) Histamine-1 Receptor Antagonist Start: 01-14-2024 End: 02-13-2024 take 1 tablet by mouth once daily cetirizine (ZYRTEC) 10 mg tablet Indications: Bronchitis Take 1 tablet by mouth once daily. 30 tablet 01/14/2024 01/22/2024 Discontinued (Discontinued by Patient) citalopram 20 mg oral tablet (20 sources) Serotonin Reuptake Inhibitor Start: 12-21-2020 End: 01-12-2021 take 1 tablet by mouth once daily Citalopram (Celexa) 20 mg tablet Discontinued 20 mg PO DAILY 30 December 21, 2020 12:00am January 12, 2021 1:51pm cyclobenzaprine hydrochloride 10 mg oral tablet (20 sources) Muscle Relaxant Start: 03-23-2018 End: 05-09-2018 take 1 tablet by mouth three times daily Cyclobenzaprine 10 MG tablet Discontinued 10 mg PO THREE TIMES A DAY March 24, 2018 8:52am May 09, 2018 11:35am nutrition docosahexaenoic acid 200 mg oral capsule (16 sources) Start: 04-02-2023 End: 08-09-2023 take 1 capsule by mouth once daily Docosahexaenoic Acid ( Dha) 200 mg capsule Discontinued 200 mg PO DAILY April 02, 2023 1:00am August 09, 2023 9:59am Levonorgestrel-Ethiny l Estrad (20 sources) Progestin, Estrogen, Progestin-contain ing Intrauterine Device Start: 02-13-2023 End: 04-02-2023 Levonorgestrel-Ethin yl Estrad (Altavera (28)) 0.15-0.03 mg tablet Discontinued 1 {tbl} PO DAILY 84 February 13, 2023 12:00am April 02, 2023 3:56pm Start: 02-13-2023 End: 04-02-2023 Levonorgestrel-Ethinyl Estra d (Altavera (28)) 0.15-0.03 mg tablet Discontinued 1 {tbl} PO DAILY February 13, 2023 12:00am April 02, 2023 3:56pm Start: 02-13-2023 End: 04-02-2023 Levonorgestrel-Ethinyl Estra d (Altavera (28)) 0.15-0.03 mg tablet Discontinued 1 TABLET PO DAILY February 13, 2023 12:00am April 02, 2023 3:56pm Start: 02-13-2023 End: 04-02-2023 Levonorgestrel-Ethinyl Estra d (Altavera (28)) 0.15-0.03 mg tablet Discontinued 1 TABLET PO DAILY February 12, 2023 11:00pm April 02, 2023 2:56pm Start: 03-09-2019 End: 10-07-2019 take 1 tablet by mouth once daily Levonorgestrel-Ethinyl Estrad Discontinued 1 TABLET PO DAILY March 09, 2019 11:49am October 07, 2019 9:29am Start: 03-09-2019 End: 10-07-2019 Levonorgestrel-Ethinyl Estra d 0.15-0.03 mg tablet Discontinued 1 {tbl} PO DAILY 31 07March 09, 2019 1:00am October 07, 2019 9:29am Start: 03-09-2019 End: 10-07-2019 Levonorgestrel-Ethinyl Estra d 0.15-0.03 mg tablet Discontinued 1 {tbl} PO DAILY March 09, 2019 1:00am October 07, 2019 9:29am Start: 03-09-2019 End: 10-07-2019 take 1 tablet by mouth once daily Levonorgestrel-Ethinyl Estrad Discontinued 1 TABLET PO DAILY March 09, 2019 12:00am October 07, 2019 8:29am Start: 03-09-2019 End: 10-07-2019 take 1 tablet by mouth once daily Levonorgestrel-Ethinyl Estrad Discontinued 1 TABLET PO DAILY March 09, 2019 1:00am October 07, 2019 9:29am Start: 03-04-2019 End: 03-09-2019 take 1 tablet by mouth once daily L Norgest/E.Estradiol-E.Estrad (Amethia) 0.15 mg-30 mcg (84)/10 mcg (7) tablets,dose pack,3 month Discontinued 1 TABLET PO DAILY March 04, 2019 11:54am March 09, 2019 11:49am Start: 03-04-2019 End: 03-09-2019 take 1 tablet by mouth once daily L Norgest/E.Estradiol-E.Estrad (Amethia) 0.15 mg-30 mcg (84)/10 mcg (7) tablets,dose pack,3 month Discontinued 1 {tbl} PO DAILY March 04, 2019 12:00am March 09, 2019 11:49am Start: 03-04-2019 End: 03-09-2019 take 1 tablet by mouth once daily L Norgest/E.Estradiol-E.Estrad (Amethia) 0.15 mg-30 mcg (84)/10 mcg (7) tablets,dose pack,3 month Discontinued 1 {tbl} PO DAILY March 04, 2019 12:00am March 09, 2019 11:49am Start: 03-04-2019 End: 03-09-2019 take 1 tablet by mouth once daily L Norgest/E.Estradiol-E.Estrad (Amethia) 0.15 mg-30 mcg (84)/10 mcg (7) tablets,dose pack,3 month Discontinued 1 TABLET PO DAILY March 03, 2019 11:00pm March 09, 2019 10:49am Start: 03-04-2019 End: 03-09-2019 take 1 tablet by mouth once daily L Norgest/E.Estradiol-E.Estrad (Amethia) 0.15 mg-30 mcg (84)/10 mcg (7) tablets,dose pack,3 month Discontinued 1 TABLET PO DAILY March 04, 2019 12:00am March 09, 2019 11:49am Norgestimate-Ethinyl Estradiol (20 sources) Progestin, Estrogen Start: 04-24-2018 End: 05-27-2018 take 1 tablet by mouth once daily Norgestimate-Ethinyl Estradiol (Sprintec (28)) 0.25-35 mg-mcg tablet Discontinued 1 TABLET PO daily April 24, 2018 5:45pm May 27, 2018 3:45pm Start: 04-24-2018 End: 05-27-2018 Norgestimate-Ethinyl Estradi ol (Sprintec (28)) 0.25-35 mg-mcg tablet Discontinued 1 {tbl} PO daily April 24, 2018 1:00am May 27, 2018 3:45pm Start: 04-24-2018 End: 05-27-2018 Norgestimate-Ethinyl Estradi ol (Sprintec (28)) 0.25-35 mg-mcg tablet Discontinued 1 {tbl} PO daily April 24, 2018 1:00am May 27, 2018 3:45pm Start: 04-24-2018 End: 05-27-2018 take 1 tablet by mouth once daily Norgestimate-Ethinyl Estradiol (Sprintec (28)) 0.25-35 mg-mcg tablet Discontinued 1 TABLET PO daily April 24, 2018 12:00am May 27, 2018 2:45pm Start: 04-24-2018 End: 05-27-2018 take 1 tablet by mouth once daily Norgestimate-Ethinyl Estradiol (Sprintec (28)) 0.25-35 mg-mcg tablet Discontinued 1 TABLET PO daily 84 April 24, 2018 1:00am May 27, 2018 3:45pm fluconazole 150 mg oral tablet (20 sources) Azole Antifungal Start: 07-25-2017 End: 08-16-2017 Fluconazole (Diflucan) 150 mg tablet Discontinued 150 mg PO .COMPLEX 2 0 July 25, 2017 12:00am August 16, 2017 10:11am 150 mg PO today and repeat in 3 days; fosfomycin 3000 mg powder for oral solution (4 sources) Start: 03-09-2024 End: 03-16-2024 fosfomycin (MONUROL) 3 g pack 03/09/2024 03/16/2024 Discontinued (Course of therapy completed) Start: 03-09-2024 End: 03-09-2024 take 1 dose by mouth once fosfomycin (MONUROL) 3 g pac k Take 1 Packet by mouth one time only for 1 dose. 1 Packet 03/09/2024 03/09/2024 Active hyoscyamine sulfate 0.12 mg / methenamine 118 mg / methylene blue 10 mg / phenyl salicylate 36 mg / sodium phosphate, monobasic 40.8 mg oral capsule (7 sources) Oxidation-Reduction Agent Start: 06-05-2024 End: 11-11-2024 URO-MP 118-10-40.8-36 mg as needed. 06/05/2024 11/11/2024 Discontinued (Discontinued by Patient) ibuprofen 800 mg oral tablet (15 sources) Nonsteroidal Anti-inflammatory Drug Start: 03-06-2019 End: 08-09-2023 take 1 tablet by mouth every eight hours as needed for pain Ibuprofen 800 mg tablet Discontinued 800 mg PO Q8H as needed for pain 30 0 May 22, 2023 1:00am August 09, 2023 9:59am Start: 11-27-2018 End: 11-21-2023 take 1 tablet by mouth every six hours as needed ibuprofen (MOTRIN) 600 mg tablet Take 1 tablet by mouth every 6 hours as needed. 30 tablet 0 11/27/2018 11/21/2023 Discontinued levonorgestrel 0.291715 mg/hr intrauterine system (5 sources) Progestin, Progestin-containing Intrauterine Device Start: 01-12-2021 End: 01-12-2021 levonorgestrel 20 mcg/24 hours (6 yrs) 52 mg intrauterine device Discontinued 1 INSERT INTRA-UTER ONCE 1 January 12, 2021 1:41pm January 12, 2021 1:59pm End: 11-21-2023 levonorgestrel (KYLEENA INTR AUTERINE) by INTRAUTERINE route. 0 11/21/2023 Discontinued levonorgestrel ( KYLEENA INTRAUTERINE) by INTRAUTERINE route. 0 Active norethindrone 0.35 mg oral tablet (20 sources) Start: 03-26-2018 End: 04-24-2018 take 1 tablet by mouth once daily Norethindrone (Contraceptive) 0.35 MG tablet Discontinued 0.35 mg PO DAILY 02 04March 26, 2018 1:00am April 24, 2018 5:46pm omeprazole 20 mg delayed release oral capsule (20 sources) Proton Pump Inhibitor Start: 02-19-2024 End: 04-15-2024 Omeprazole 20 mg capsule,delayed release(DR/EC) Discontinued 20 mg PO NEEDED February 24, 2024 12:00am March 26, 2024 7:48am heartburn Start: 02-19-2024 End: 02-19-2024 take 1 capsule by mouth twice daily omeprazole (PRILOSEC) 40 mg capsule Indications: Heartburn during in third trimester Take 1 capsule by mouth two times a day. 120 capsule 1 02/19/2024 02/19/2024 Discontinued Start: 02-19-2024 End: 02-19-2024 take 1 capsule by mouth once daily omeprazole (PRILOSEC) 40 mg capsule Take 1 capsule by mouth once daily. 90 capsule 1 02/19/2024 02/19/2024 Discontinued Start: 04-11-2021 take 1 tablet by harjinder th once daily Omeprazole Magnesium (Prilosec Otc) 20 mg tablet,delayed release (DR/EC) Active 20 MG PO DAILY April 11, 2021 6:17pm pantoprazole 40 mg delayed release oral tablet (11 sources) Proton Pump Inhibitor Start: 12-26-2023 End: 02-19-2024 take 1 tablet by mouth once daily pantoprazole DR (PROTONIX) 40 mg tablet Take 1 tablet by mouth once daily. 30 tablet 2 12/26/2023 02/19/2024 Discontinued penicillin v potassium 250 mg oral tablet (20 sources) Start: 03-31-2019 End: 10-07-2019 take 1 tablet by mouth four times daily Penicillin V Potassium 250 MG tablet Discontinued 250 mg PO 4 TIMES DAILY March 31, 2019 1:00am October 07, 2019 9:29am phenazopyridine hydrochloride 100 mg oral tablet (2 sources) End: 11-11-2024 take 2 tablets by mouth every eight hours as needed phenazopyridine (PYRIDIUM) 100 mg tablet Take 200 mg by mouth three times a day as needed. 11/11/2024 Discontinued potassium chloride 20 meq extended release oral tablet (14 sources) Start: 06-05-2024 End: 11-11-2024 potassium chloride 20 mEq TbER Take 2 tablets by mouth two times a day. Take 2 tabs 1x 2 tablet 06/05/2024 11/11/2024 Discontinued (Discontinued by Patient) predniSONE 20 mg oral tablet (20 sources) Start: 04-11-2021 End: 07-07-2021 take 2 tablets by mouth once daily Prednisone 20 mg tablet Discontinued 40 mg PO DAILY 8 April 11, 2021 1:00am July 07, 2021 2:41pm Start: 04-11-2021 End: 07-07-2021 take 40 mg by mouth once daily Prednisone Discontinued 40 MG PO DAILY April 11, 2021 1:00am July 07, 2021 2:41pm Prenat.Vits,Ryland,Eej-Amkn-Mcn ic (19 sources) Start: 01-14-2018 End: 05-27-2018 Prenat.Vits,Ryland,Pjl-Amuq-Qij ic Discontinued 1 EACH PO DAILY January 14, 2018 3:05pm May 27, 2018 3:45pm Start: 01-14-2018 End: 05-27-2018 Prenat.Vits,Ryland,Ncy-Dzsp-Oxu ic Discontinued 1 EACH PO DAILY January 13, 2018 11:00pm May 27, 2018 2:45pm Start: 01-14-2018 End: 05-27-2018 Prenat.Vits,Ryland,Bas-Tacs-Nvc ic Discontinued 1 EACH PO DAILY January 14, 2018 12:00am May 27, 2018 3:45pm Prenat.Vits,Ryland,Hto-Rqwx-Qth ic 1 EACH tablet (2 sources) Start: 01-14-2018 End: 05-27-2018 Prenat.Vits,Ryland,Plh-Djxi-Uvj ic 1 EACH tablet Discontinued 1 NMA PO DAILY January 14, 2018 12:00am May 27, 2018 3:45pm Start: 01-14-2018 End: 05-27-2018 Prenat.Vits,Ryland,Giz-Nqcx-Iwp ic 1 EACH tablet Discontinued 1 NMA PO DAILY January 14, 2018 12:00am May 27, 2018 3:45pm vit no.129/iron/fol ic ( ONE DAILY ORAL) (20 sources) End: 07-22-2024 vit no.129/iron/fol ic ( ONE DAILY ORAL) Take by mouth. 07/22/2024 Discontinued (Discontinued by Patient) vit no. 129/iron/folic ( ONE DAILY ORAL) Take by mouth. Active vit no. 129/iron/folic ( ONE DAILY ORAL) Take by mouth. 0 Active sulfamethoxazole 800 mg / trimethoprim 160 mg oral tablet (20 sources) Dihydrofolate Reductase Inhibitor Antibacterial, Sulfonamide Antimicrobial Start: 11-10-2022 End: 12-08-2022 Sulfamethoxazole-Trimethopri m 800-160 mg tablet Discontinued 1 {tbl} PO TWICE A DAY 6 0 November 10, 2022 12:00am December 08, 2022 12:36pm Start: 11-10-2022 End: 12-08-2022 take 1 tablet by mouth twice daily Sulfamethoxazole-Trimethoprim Discontinu ed 1 TABLET PO TWICE A DAY 6 November 10, 2022 12:00am December 08, 2022 12:36pm Start: 09-18-2018 End: 09-25-2018 Sulfamethoxazole-Trimethopri m (Bactrim Ds) 800-160 mg tablet Discontinued 1 {tbl} PO TWICE A DAY 14 7 0 September 18, 2018 12:00am September 24, 2018 12:00am September 25, 2018 12:06am terconazole 4 mg/ml vaginal cream (20 sources) Azole Antifungal Start: 05-26-2020 End: 06-02-2020 Terconazole 0.4 % cream Discontinued 1 NMA VAGINAL AT BEDTIME 45 7 0 May 26, 2020 1:00am June 01, 2020 1:00am June 02, 2020 1:03am Start: 05-26-2020 End: 06-02-2020 Terconazole Discontinued 1 A PPFUL VAGINAL AT BEDTIME 45 7 May 26, 2020 1:00am June 02, 2020 1:03am Problems Active Problems Problem Classification Problem Date Documented Da te Episodic/Chronic Adjustment disorders (2 sources) Complicated grieving; Translations: [Adjustment disorder with depressed mood] Onset: 5 05-07-2024 Chronic Anxiety disorders (20 sources) Mixed anxiety and depressive disorder; Translations: [Anxiety disorder, unspecified] Onset: 5 10-27-2020 Chronic Comment on above: NO MEDS Bacterial infection; unspecified site (20 sources) Bacteria present; Translations: [Streptococcus, group B, as the cause of diseases classified elsewhere] 05-09-2018 Episodic Comment on above: Plan for PCN for del jesenia. Calculus of urinary tract (20 sources) Kidney stone; Translations: [Calculus of kidney] Onset: 4 01-10-2023 Episodic Comment on above: in 2022 Chronic obstructive pulmonary disease and bronchiectasis (1 source) Bronchitis; Translations: [Bronchitis, not specified as acute or chronic] 01-14-2024 Episodic Contraceptive and procreative management (9 sources) Encounter for routine checking of intrauterine contraceptive device; Translations: [Surveillance of intrauterine contraceptive device] 09-04-2022 Episodic Disorders of teeth and jaw (20 sources) Toothache; Translations: [Other specified disorders of teeth and supporting structures] 04-01-2019 Episodic Endometriosis (20 sources) Endometriosis (clinical); Translations: [Endometriosis, unspecified] Onset: 9 03-17-2020 Chronic Comment on above: confirmed with lapar oscopy 2019 Esophageal disorders (1 source) Gastroesophageal reflux disease; Translations: [Gastro-esophageal reflux disease without esophagitis] Onset: 9 11-21-2018 Chronic Fever of unknown origin (17 sources) Fever; Translations: [Fever, unspecified] 12-08-2022 Episodic Genitourinary symptoms and ill-defined conditions (2 sources) Genuine stress incontinence; Translations: [Stress incontinence (female) (male)] 02-09-2025 Chronic Genitourinary symptoms and ill-defined conditions (20 sources) Bacteriuria; Translations: [Bacteriuria] Onset: 4 07-29-2023 Episodic Comment on above: On cephalexin 250 at HS Headache; including migraine (2 sources) Acute headache; Translations: [Acute nonintractable headache, unspecified headache type] 12-26-2023 Episodic Immunizations and screening for infectious disease (2 sources) Vaccination needed; Translations: [Encounter for immunization] 01-03-2024 Episodic Menstrual disorders (20 sources) Amenorrhea; Translations: [Amenorrhea, unspecified] Onset: 5 07-22-2023 Chronic Comment on above: serial HCG Miscellaneous mental health disorders (2 sources) Nightmares associated with chronic post-traumatic stress disorder; Translations: [Nightmare disorder] Onset: 5 10-15-2024 Chronic Miscellaneous mental health disorders (20 sources) depression; Translations: [ depression] 01-12-2021 Episodic Mood disorders (2 sources) Recurrent major depressive episodes, mild ; Translations: [Major depressive disorder, recurrent, mild] Onset: 5 05-07-2024 Chronic Nausea and vomiting (2 sources) Nausea and vomiting; Translations: [Nausea with vomiting, unspecified] 09-12-2023 Episodic Nonmalignant breast conditions (20 sources) Breast lump; Translations: [Unspecified lump in the left breast, unspecified quadrant] 07-08-2020 Episodic Comment on above: h/o fibrocystic tubbs ges, no lumps at exam 05/13 Other aftercare (1 source) Long-term current use of drug therapy; Translations: [Other 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 container terminal (current) drug therapy] 10-15-2024 Episodic Other complications of ; puerperium affecting management of mother (10 sources) Chromosomal abnormality in fetus affecting obstetrical care; Translations: [Chromosome abnormality fetus, affect management of mother, antepartum] 05-24-2023 Episodic Comment on above: miscarriage and nipt showed trisomy 21, gender girl Other complications of (20 sources) Anemia of ; Translations: [Anemia complicating , unspecified trimester] 10-27-2020 Chronic Comment on above: iron added Other complications of (20 sources) Asymptomatic bacteriuria in ; Translations: [Asymptomatic bacteriuria during in first trimester] 05-09-2018 Episodic Comment on above: macrobid, repeat uri ne culture/negative Other complications of (20 sources) Acute cystitis in , antepartum; Translations: [Infections of bladder in , first trimester] 03-14-2020 Episodic Other complications of (20 sources) High risk ; Translations: [Supervision of high risk , unspecified, unspecified trimester] Onset: 4 Resolved: 5 04-03-2023 Episodic Comment on above: , CHRISTIE 11/24/23, P Ashley [facility] & Thaddeus, - Lloyd PRR , CHRISTIE , Thaddeus Oliveira, Del Other complications of (20 sources) Urinary tract infection in ; Translations: [Unspecified infection of urinary tract in , unspecified trimester] Onset: 5 04-07-2023 Episodic Comment on above: increase Keflex to T ID x 7 days then increase keflex from once daily to twice daily for prophylaxes Other complications of (20 sources) Supervision of high risk , unspecified, unspecified trimester; Translations: [Supervision of unspecified high-risk ] 04-03-2023 Episodic Other complications of (19 sources) Unspecified infection of urinary tract in , unspecified trimester; Translations: [Infections of genitourinary tract in , unspecified as to episode of care or not applicable] Onset: 5 04-03-2023 Episodic Other complications of (6 sources) Abdominal pain in ; Translations: [Other specified related conditions, unspecified trimester] 08-13-2023 Episodic Other complications of (20 sources) H/O: miscarriage; Translations: [Supervision of with other poor reproductive or obstetric history, unspecified trimester] Onset: 4 08-09-2023 Episodic Comment on above: trisomy 21, girl Other complications of (3 sources) Other specified related conditions, unspecified trimester; Translations: [Other specified complications of , antepartum condition or complication] 08-15-2023 Episodic Other complications of (5 sources) Supervision of with other poor reproductive or obstetric history, unspecified trimester; Translations: [Supervision of high-risk with history of ] 08-15-2023 Episodic Other complications of (3 sources) Thrombocytopenic disorder; Translations: [Other diseases of the blood and blood-forming organs and certain disorders involving the immune mechanism complicating , unspecified trimester] 09-02-2023 Episodic Comment on above: PLT 142 at NOB cbc r epeat orderedrpt was 157 (normal) - this was likely due to 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 container terminal use of keflex, as thrombocytopenia is a known side effect and the platelets went back up with discontinuation. Other complications of (20 sources) Placenta circumvallata; Translations: [Circumvallate placenta, second trimester] Onset: 4 Resolved: 5 11-21-2023 Episodic Comment on above: growth scans q 4 wee ks Other complications of (1 source) Anomaly of placenta; Translations: [Malformation of placenta, unspecified, second trimester] 12-05-2023 Episodic Other complications of (1 source) Pain in female pelvis; Translations: [Other specified related conditions, unspecified trimester] 03-12-2024 Episodic Other complications of (3 sources) Vomiting of , unspecified; Translations: [Unspecified vomiting of , unspecified as to episode of care or not applicable] Onset: 5 12-21-2024 Episodic Other complications of (6 sources) Rubella non-immune; Translations: [Supervision of other high risk pregnancies, unspecified trimester] Onset: 5 12-17-2024 Episodic Other disorders of stomach and duodenum (20 sources) Cyclical vomiting syndrome; Translations: [Cyclical vomiting syndrome unrelated to migraine] 10-12-2021 Episodic Other female genital disorders (16 sources) Shankar; Translations: [Mittelschmerrosalinda] 02-13-2023 Chronic Comment on above: OCP Other female genital disorders (16 sources) Shankar; Translations: [Mittelschmerz] 02-13-2023 Chronic Other female genital disorders (2 sources) Pain in female genitalia on intercourse; Translations: [Unspecified dyspareunia] 02-09-2025 Chronic Other female genital disorders (1 source) Vaginal odor; Translations: [Other specified noninflammatory disorders of vagina] 03-09-2024 Episodic Other gastrointestinal disorders (2 sources) Diarrhea; Translations: [Diarrhea, unspecified] 02-09-2025 Episodic Other lower respiratory disease (1 source) Wheezing; Translations: [Wheezing] 01-14-2024 Episodic Other nutritional; endocrine; and metabolic disorders (20 sources) Ketosis; Translations: [Other specified metabolic disorders] 10-12-2021 Chronic Other nutritional; endocrine; and metabolic disorders (2 sources) Decrease in appetite; Translations: [Anorexia] 05-07-2024 Episodic Other nutritional; endocrine; and metabolic disorders (2 sources) Abnormal weight loss; Translations: [Abnormal weight loss] 05-07-2024 Episodic Other conditions (2 sources) Amniotic fluid -meconium stain ; Translations: [Meconium staining] 04-03-2024 Episodic Other and delivery including normal (20 sources) Vaginal delivery; Translations: [Encounter for full-term uncomplicated delivery] Onset: 4 Resolved: 5 09-04-2022 Episodic Comment on above: System added from do cumentation. Status documented as Yes on Admission SM 40 Thaddeus hernandez PRR CHRISTIE [address] [place] boyfriend Lloyd PRR CHRISTIE 10/23/20 boy! Thaddeus PC: Jomar (Boy) BF: Lloyd sequential screen ne gative. anatomy scan normal. genetic- LR boy, car rier- neg and NTD, anatomy nl. GBS negative Discussed genetic/ca rrier testing. desires. NIPT low risk Other screening for suspected conditions (not mental disorders or infectious disease) (20 sources) Patient encounter status; Translations: [Encounter for screening, unspecified] Onset: 4 03-24-2018 Episodic Comment on above: NT done 09/09/17- norm al OPTIMAL DRAW DATES 10/06/17-10/20/17- screening negative Other upper respiratory infections (20 sources) Viral upper respiratory tract infection; Translations: [Acute upper respiratory infection, unspecified] 04-14-2021 Episodic Otitis media and related conditions (4 sources) Acute left otitis media; Translations: [Otitis media, unspecified, left ear] 09-18-2022 Episodic Pleurisy; pneumothorax; pulmonary collapse (20 sources) Pleurisy; Translations: [Pleurisy] 04-14-2021 Episodic Polyhydramnios and other problems of amniotic cavity (20 sources) Polyhydramnios; Translations: [Polyhydramnios, third trimester, not applicable or unspecified] Onset: Resolved: 02-27-2024 Episodic Residual codes; unclassified (20 sources) Gestation period, 37 weeks; Translations: [37 weeks gestation of ] 10-27-2020 Episodic Comment on above: electronic covid tai t ordered 10/04/20 (scheduled 10/21/20 at 1340) Residual codes; unclassified (20 sources) History of vaccination; Translations: [Personal history of other drug therapy] 10-27-2020 Episodic Comment on above: 08/04/20 Residual codes; unclassified (20 sources) FH: Congenital heart disease; Translations: [Family history of other congenital malformations, deformations and chromosomal abnormalities] 05-09-2018 Episodic Comment on above: nt screening Residual codes; unclassified (1 source) Gestation period, 21 weeks; Translations: [21 weeks gestation of ] 11-21-2023 Episodic Residual codes; unclassified (2 sources) Gestation period, 23 weeks; Translations: [23 weeks gestation of ] 12-05-2023 Episodic Residual codes; unclassified (1 source) Gestation period, 24 weeks; Translations: [24 weeks gestation of ] 12-06-2023 Episodic Residual codes; unclassified (1 source) Gestation period, 26 weeks; Translations: [26 weeks gestation of ] 12-26-2023 Episodic Residual codes; unclassified (1 source) Gestation period, 28 weeks; Translations: [28 weeks gestation of ] 01-03-2024 Episodic Residual codes; unclassified (1 source) Gestation period, 30 weeks; Translations: [30 weeks gestation of ] 01-22-2024 Episodic Residual codes; unclassified (1 source) Gestation period, 32 weeks; Translations: [32 weeks gestation of ] 02-05-2024 Episodic Residual codes; unclassified (2 sources) Gestation period, 34 weeks; Translations: [34 weeks gestation of ] 02-19-2024 Episodic Residual codes; unclassified (1 source) Gestation period, 35 weeks; Translations: [35 weeks gestation of ] 02-27-2024 Episodic Residual codes; unclassified (1 source) Gestation period, 36 weeks; Translations: [36 weeks gestation of ] 03-03-2024 Episodic Residual codes; unclassified (2 sources) Gestation period, 38 weeks; Translations: [38 weeks gestation of ] 03-19-2024 Episodic Residual codes; unclassified (2 sources) Gestation period, 39 weeks; Translations: [39 weeks gestation of ] 04-03-2024 Episodic Residual codes; unclassified (3 sources) Gestation period, 7 weeks; Translations: [Less than 8 weeks gestation of ] 11-11-2024 Episodic Residual codes; unclassified (1 source) Gestation period, 12 weeks; Translations: [12 weeks gestation of ] 12-16-2024 Episodic Residual codes; unclassified (1 source) Gestation period, 15 weeks; Translations: [15 weeks gestation of ] 01-07-2025 Episodic Residual codes; unclassified (1 source) 20 weeks gestation of ; Translations: [20 weeks gestation of (HCC)] Onset: Episodic Residual codes; unclassified (1 source) 15 weeks gestation of ; Translations: [15 weeks gestation of (HCC)] Onset: Episodic Skin and subcutaneous tissue infections (20 sources) Pilonidal cyst; Translations: [Pilonidal cyst without abscess] 03-17-2020 Episodic Spontaneous (20 sources) with abortive outcome; Translations: [Incomplete spontaneous without complication] 05-21-2023 Episodic Substance-related disorders (2 sources) Smoker; Translations: [Nicotine dependence, unspecified, uncomplicated] Onset: 9 11-21-2018 Chronic Unclassified (1 source) right flank pain/abdominal pain/ Onset: 4 Unclassified (2 sources) NO SHOW 07-09-2024 Unclassified (1 source) Long-term current use of drug therapy 10-15-2024 Unclassified (15 sources) [facility] Education - COMMON Onset: 5 11-11-2024 Unclassified (15 sources) Education - [place] Onset: 07-0911-11-2024 Unclassified (1 source) APPOINTMENT CANCELLED 01-13-2025 Urinary tract infections (20 sources) Acute cystitis; Translations: [Acute cystitis without hematuria] Onset: 11-10-2022 Episodic Comment on above: 02/24/24 Macrobid cephalexin BID Viral infection (2 sources) Viral disease; Translations: [Viral infection, unspecified] 09-30-2024 Episodic Past or Other Problems Problem Classification Problem Date Documented Date Episodic/Chronic Abdominal pain (20 sources) Pain in pelvis; Translations: [Pelvic and perineal pain] Onset: 11-21-2018 Resolved: 11-21-2023 10-22-2018 Episodic Administrative/social admission (2 sources) Stress; Translations: [Other specified problems related to psychosocial circumstances] Onset: 10-15-2024 10-15-2024 Episodic E Codes: Adverse effects of medical drugs (2 sources) Adverse reaction to drug; Translations: [Adverse effect of unspecified drugs, medicaments and biological substances, initial encounter] Onset: 10-15-2024 10-15-2024 Episodic Early or threatened labor (20 sources) False labor; Translations: [False labor, unspecified] Onset: 03-18-2024 03-24-2018 Episodic Fluid and electrolyte disorders (20 sources) Mild dehydration; Translations: [Dehydration] Onset: 10-15-2024 10-12-2021 Episodic Malaise and fatigue (20 sources) Fatigue; Translations: [Other fatigue] Onset: 05-07-2024 03-17-2020 Episodic Other aftercare (1 source) Other 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 container terminal (current) drug therapy; Translations: [Encounter for long-term (current) use of medications] Onset: 10-15-2024 Episodic Other complications of (20 sources) Benign gestational thrombocytopenia; Translations: [Other diseases of the blood and blood-forming organs and certain disorders involving the immune mechanism complicating , second trimester] Onset: 12-05-2023 Resolved: 06-04-2024 12-05-2023 Episodic Other complications of (20 sources) Heartburn; Translations: [Other specified related conditions, second trimester] Onset: 02-19-2024 Resolved: 06-04-2024 12-26-2023 Episodic Other complications of (2 sources) Other mental disorders complicating the puerperium; Translations: [Mental disorders of mother, condition or complication] Onset: 05-07-2024 05-07-2024 Episodic Other complications of (1 source) Supervision of high risk , unspecified, third trimester; Translations: [Supervision of high risk , unspecified, third trimester] Onset: 03-30-2024 Episodic Other complications of (1 source) Circumvallate placenta, third trimester; Translations: [Circumvallate placenta during in third trimester, antepartum] Onset: 02-19-2024 Episodic Other nutritional; endocrine; and metabolic disorders (1 source) Anorexia; Translations: [Decreased appetite] Onset: 05-07-2024 Episodic Other nutritional; endocrine; and metabolic disorders (1 source) Abnormal weight loss; Translations: [Abnormal weight loss] Onset: 05-07-2024 Episodic Residual codes; unclassified (1 source) Illness, unspecified; Translations: [Illness, unspecified] Onset: 10-05-2024 Episodic Residual codes; unclassified (1 source) Less than 8 weeks gestation of ; Translations: [7 weeks gestation of (HCC)] Onset: 11-11-2024 Episodic Residual codes; unclassified (1 source) Personal history of other complications of , childbirth and the puerperium; Translations: [History of miscarriage] Onset: 11-21-2023 Episodic Residual codes; unclassified (1 source) 38 weeks gestation of ; Translations: [38 weeks gestation of ] Onset: 03-19-2024 Episodic Spondylosis; intervertebral disc disorders; other back problems (1 source) Low back pain; Translations: [Low back pain] Onset: 03-05-2017 11-21-2018 Episodic Substance-related disorders (2 sources) Marijuana user; Translations: [Cannabis use, unspecified, uncomplicated] Onset: 05-07-2024 05-07-2024 Episodic Unclassified (20 sources) Normal labor; Translations: [Active labor at term] 10-21-2018 Results Test Name Value Interpretation Reference Range Facility [facility] 02-11-2025 [facility] Telephone ([id number]) KIMANI OWENS ([id number]) 2000 F Date Time Provider Department 02/11/25 PALMIRA PITTS [id number] During your visit today, we recorded the following information about you: Palmira Pitts RN 02/11/2025 9:24 AM Signed 2nd risk assessment form submitted 02/11/2025. 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 Take with food. - ondansetron (ZOFRAN) 4 mg tablet Take 1 tablet by mouth every 8 hours as needed for nausea/vomiting. - aspirin, enteric coated (ECOTRIN LOW STRENGTH) 81 mg EC tablet Take 1 tablet by mouth once daily. - FLUoxetine (PROZAC) 20 mg capsule Take 1 capsule by mouth once daily. - acetaminophen (TYLENOL EXTRA STRENGTH) 500 mg tablet Take 1,000 mg by mouth every 8 hours as needed. Problem List As Of Date 02/11/2025 Noted Resolved Depression with anxiety [F41.8] Endometriosis [N80.9] 12/10/2018 Right flank pain [R10.A1] 11/12/2023 11/21/2023 [facility]11/21/2023 06/04/2024 History of recurrent UTI (urinary tract infecti*11/21/2023 History of miscarriage [Z87.59] 11/21/2023 Dysuria [R30.0] 11/21/2023 Circumvallate placenta, second trimester [O43.1*11/21/2023 06/04/2024 Encounter for supervision of high risk pregnanc*11/21/2023 06/04/2024 Benign gestational thrombocytopenia in second t*12/05/2023 06/04/2024 Recurrent UTI [N39.0] 12/18/2023 History of kidney stones [Z87.442] 12/18/2023 Heartburn during in third trimester [*02/19/2024 06/04/2024 Polyhydramnios in third trimester [O40.3XX0] 02/27/2024 06/04/2024 Missed menses [N92.6] 07/22/2024 Encounter for supervision of normal i*11/11/2024 with uncertain dates, antepartum (HCC*11/11/2024 01/07/2025 Rubella non-immune status, antepartum (HCC) [Z3*12/17/2024 UTI (urinary tract infection) in , ant*12/21/2024 Encounter Status:Closed by PALMIRA PITTS on 02/11/25 Normal [facility] Bacteria Ur Culton Bacteria identified Cx Nom (U) ORGANISM ID: 1 50,000-<100,000 CFU/ml Escherichia coli ORGANISM ID: 1 (ESCHERICHIA COLI) ------ ANTIBIOTIC INTERPRETATION REGINALDO STATUS REFERENCE RANGE ------ Ampicillin S 8 F Susceptible <=8 , Intermediate >8 , Resistant >16 Cefazolin S <=4 F Susceptible 0-16 , Intermediate <0 or >16 , Resistant >16 For uncomplicated urinary tract infections, cefazolin results can be used to predict susceptibility or resistance to cephalexin. Ceftriaxone S <=1 F Susceptible <=1 , Intermediate >1 , Resistant >=4 Cefepime S <=1 F Susceptible <=2 , Susceptible-Dose Dependent >2 , Resistant >=16 Ertapenem S <=0.5 F Susceptible <=0.5 , Intermediate >.5 , Resistant >1 Meropenem S <=0.25 F Susceptible <=1 , Intermediate >1 , Resistant >2 Ampicillin/Sulbact S <=2 F Susceptible <=8 , Intermediate >8 , Resistant >16 Piperacillin/Tazobac S <=4 F Susceptible <16 , Susceptible-Dose Dependent >=16 , Resistant >=32 Gentamicin S <=1 F Susceptible <=2 , Intermediate >2 , Resistant >=8 Tobramycin S <=1 F Susceptible <4 , Intermediate >=4 , Resistant >=8 Trimeth sulfameth S <=20 F Susceptible <=40 , Resistant >40 Ciprofloxacin S <=0.25 F Susceptible <0.5 , Intermediate >=.5 , Resistant >=1 Nitrofurantoin S <=16 F Susceptible <=32 , Intermediate >32 , Resistant >64 Abnormal [facility] Comment on above: Performed By: #### 6 30-4 ####[facility] LABCLIA [id number] [address] [place] MR/Leni 02-09-2025 MR/HUMA [facility] [address], [address] [place] [address] OFFICE VISIT Date of Service: 02/09/25 MR#: [id number] Acct: [id number] Name: KIMANI OWENS Rep #: [id number] : 2000 Provider: Dr. Shy Briseno i, MD Age/Sex: 24/F Location: [facility] Status: Signed Intake Vital Signs 09/30/24 10:13 02/09/25 11:35 Height 5 ft 4 in 5 ft 4 in Weight: 109 lb 11 oz BMI 18.8 BP 102/65 Pulse 83 Intake Visit Reasons: UTI Burning urgency Chief Complaint: uti symptoms Grocery Caddy Required: No Accompanied by: kids Is patient in pain?: No Allergies cephalexin (From Keflex) Adverse Reaction (Verified 02/09/25 11:33) Other Medications ???Medication ???Instructions ???Recorded ???Confirmed ???Type multivitamin no.47-iron fum 27 1 cap PO DAILY 08/09/23 02/09/25 History mg-folate no.1 1 mg-dha 300 mg capsule (PNV-DHA) naproxen 500 mg tablet 500 mg PO Q8H PRN PRN Pain Score 1 05/26/23 02/09/25 Rx 1-10 #0 tabs Nurse's Note: burning and malaised Patinet is 20weeks [facility] Medical History (Updated 02/09/25 @ 11:[address] Shy Henry MD) (spontaneous vaginal delivery) Polyhydramnios depression Depression Anxiety Circumvallate placenta Thrombocytopenia affecting Abdominal pain of right lower quadrant during , antepartum History of miscarriage, currently Supervision of high-risk Chromosome abnormality fetus, affect management of mother, antepartum Easy bruising Incomplete UTI in [place] Left renal stone Marijuana use Low iron Migraine headache Vapes nicotine containing substance History of stress test depression Fatigue Pilonidal cyst Anxiety and depression Surgical History Status post dilation and curettage Hx of wisdom tooth extraction History of laparoscopy Family History Father Arthritis Diabetes Hypertension High cholesterol Mother Arthritis Hypertension Lupus Mwfnr-Wghkhkzyf-Cpegm (WPW) syndrome Grandmother Thyroid cancer, Onset Age: 70 Maternal Social History adopted: No household members: spouse and children housing: house number of children: 2 current occupational status: unemployed current occupation: [employer] current occupational exposures/hazards: No pets and animals: Yes (2) pets and animals: dog(s) history of recent travel: No sexually active: Yes Smoking Status: Former smoker quit date: 07/22/23 second hand exposure: No alcohol intake: never substance use type: does not use diet: lactose free well-balanced diet: daily or most days caffeine: No eating out: 1-3 times/week during the past year weight has: remained stable what type of physical activity do you participate in: none amish/bahai: None seatbelt use: always do you feel safe at home: Yes 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 history: Lloyd () Female Reproductive History Menstrual Ab spontaneous: 1 HPI HPI Urology Chief Complaint: uti symptoms Details: KIMANI OWENS, is a 24 F. She is currently 20 weeks . She has had about 4 urinary tract infections. She has continued vitamin C, probiotics and cranberry tablets. She is taking 250mg once daily, we discussed increasing to 3 times a day. She is aware of the 500mg dose recommendation. She reports this is actually doing well for her. She is not allergic to cephalexin. She started to develop nausea and vomiting with it. She was also having platelet issues during this time. She took herself off it. She denies issues with bowels, she is taking fiber supplement. She is here for a possible acute urinary tract infection. Symptoms of an infection started about 2 days ago. She is having nausea and vomiting, she has zofran. She is also having dysuria. No fever. ROS Const Constitutional: No chills, fatigue, fever(s), headache(s), night sweats, weakness, weight change, abnormal sleep pattern or change in appetite Eyes Eyes: No change in vision ENT ENT: No headache(s) or dry mouth Resp Respiratory: No cough, chest congestion, shortness of breath or wheezing Cardio Cardiology: Positive for other (No chest pain.); No shortness of breath, irregular heart rhythm or lightheadedness Gastro GI: Positive for nausea/dyspepsia and vomiting; No abdominal pain, change in bowel habits, constipation or diarrhea Musc Musculoskeletal: No abnormal gait Skin Skin: No yellowing of the eye, lesions, itchy eyes, rash or skin ulcer Neuro Neurology: No abnormal gait, confusion, dizziness, weakness, headache(s) or memory loss Psych Psychiatric: No abnormal sl (more content not included)... Normal [facility] Bacteria Ur Culton 5 Bacteria identified Cx Nom (U) ORGANISM ID: 1 >=100,000 CFU/ml Escherichia coli ORGANISM ID: 1 (ESCHERICHIA COLI) ------ ANTIBIOTIC INTERPRETATION REGINALDO STATUS REFERENCE RANGE ------ Ampicillin S 8 F Susceptible <=8 , Intermediate >8 , Resistant >16 Cefazolin S <=4 F Susceptible 0-16 , Intermediate <0 or >16 , Resistant >16 For uncomplicated urinary tract infections, cefazolin results can be used to predict susceptibility or resistance to cephalexin. Ceftriaxone S <=1 F Susceptible <=1 , Intermediate >1 , Resistant >=4 Cefepime S <=1 F Susceptible <=2 , Susceptible-Dose Dependent >2 , Resistant >=16 Ertapenem S <=0.5 F Susceptible <=0.5 , Intermediate >.5 , Resistant >1 Meropenem S <=0.25 F Susceptible <=1 , Intermediate >1 , Resistant >2 Ampicillin/Sulbact S <=2 F Susceptible <=8 , Intermediate >8 , Resistant >16 Piperacillin/Tazobac S <=4 F Susceptible <16 , Susceptible-Dose Dependent >=16 , Resistant >=32 Gentamicin S <=1 F Susceptible <=2 , Intermediate >2 , Resistant >=8 Tobramycin S <=1 F Susceptible <4 , Intermediate >=4 , Resistant >=8 Trimeth sulfameth S <=20 F Susceptible <=40 , Resistant >40 Ciprofloxacin S <=0.25 F Susceptible <0.5 , Intermediate >=.5 , Resistant >=1 Nitrofurantoin S <=16 F Susceptible <=32 , Intermediate >32 , Resistant >64 Abnormal [facility] Comment on above: Performed By: #### 6 30-4 ####[facility] LABVISHNU [id number] [address] [address] [place] UA DIP, URINE (POC)on 2024 BILIRUBIN UA (POCT) Negative Negative [facility] CLARITY UA (POCT) Clear [facility] COLOR UA (POCT) Yellow [facility] GLUCOSE UA (POCT) Negative Negative mg/dL [facility] Hemoglobin Ql (U) Negative Negative [facility] Interpretation and review of laboratory results Abnormal [facility] KETONE UA (POCT) Negative Negative mg/dL [facility] LEUKOCYTES UA (POCT) Trace Abnormal Negative [facility] NITRITE UA (POCT) Negative Negative [facility] PH UA (POCT) 6.0 4.5 - 8.0 [facility] Protein Ql (U) Trace Abnormal Negative mg/dL [facility] SPECIFIC GRAVITY UA (POCT) 1.025 1.005 - 1.030 [facility] UROBILINOGEN UA (POCT) 0.2 Normal E.U./d L [facility] Location:[facility], [address], [place], [place], [id number] [place] [address] POINT OF CARE [facility] 12-21-2024 CNPN Telephone (OBGYWM) KIMANI OWENS ([id number]) 2000 F Date Time Provider Department 12/21/24 CHATA BRAUN OBGYWM During your visit today, we recorded the following information about you: Yarelis New RN 12/21/2024 2:41 PM Signed 12w6d Calling to see if she can get rx for Zofran. She has UTI and was prescribed Macrobid by [facility] urgent care provider. Stated that the medication is causing severe nausea. She doesn't always vomit with it, but has constant nausea after taking it. Pharmacy correct. Please advise. JANNA Bustillo Emily, APRN.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 12/21/2024 3:00 PM Signed Rx sent. Continue hydration and notify with fever, chills, worsening nausea/vomiting, or other worsening urinary symptoms Maximo Goetz APRN.Yarelis Dutta RN 12/21/2024 3:16 PM Signed Left voicemail to check [email or web address] message. Yarelis New RN Allergies As of Date: 12/21/2024 Noted Allergy Reaction KEFLEX (CEPHALEXIN) 03/09/2024 14 - Other: See Comments Comments: thrombocytopenia Date Reviewed: 12/14/2024 Reviewed by: Inna Moise LPN - Fully Assessed Reason for Visit: Nausea [70] Primary Visit Diagnosis:Nausea and vomiting during (HCC) [O21.9] Other Visit Diagnosis:UTI (urinary tract infection) in , antepartum (HCC) [O23.40] Order(s):ondansetron (ZOFRAN) 4 mg tabletTake 1 tablet by mouth every 8 hours as needed for nausea/vomiting.Disp: 60 tabletRfl: 1 Prescriptions as of 12/21/2024 - ondansetron (ZOFRAN) 4 mg tablet Take 1 tablet by mouth every 8 hours as needed for nausea/vomiting. - nitrofurantoin monohydrate and macrocrystal (MACROBID) 100 mg capsule Take 1 capsule by mouth two times a day for 5 days. - aspirin, enteric coated (ECOTRIN LOW STRENGTH) 81 mg EC tablet Take 1 tablet by mouth once daily. - FLUoxetine (PROZAC) 20 mg capsule Take 1 capsule by mouth once daily. - acetaminophen (TYLENOL EXTRA STRENGTH) 500 mg tablet Take 1,000 mg by mouth every 8 hours as needed. Problem List As Of Date 12/21/2024 Noted Resolved Depression with anxiety [F41.8] Endometriosis [N80.9] 12/10/2018 Right flank pain [R10.9] 11/12/2023 11/21/2023 with care elsewhere in [facility]*11/21/2023 06/04/2024 History of recurrent UTI (urinary tract infecti*11/21/2023 History of miscarriage [Z87.59] 11/21/2023 Dysuria [R30.0] 11/21/2023 Circumvallate placenta, second trimester [O43.1*11/21/2023 06/04/2024 Encounter for supervision of high risk pregnanc*11/21/2023 06/04/2024 Benign gestational thrombocytopenia in second t*12/05/2023 06/04/2024 Recurrent UTI [N39.0] 12/18/2023 History of kidney stones [Z87.442] 12/18/2023 Heartburn during in third trimester [*02/19/2024 06/04/2024 Polyhydramnios in third trimester [O40.3XX0] 02/27/2024 06/04/2024 Missed menses [N92.6] 07/22/2024 Encounter for supervision of normal i*11/11/2024 with uncertain dates, antepartum (HCC*11/11/2024 Rubella non-immune status, antepartum (HCC) [O0*12/17/2024 UTI (urinary tract infection) in , ant*12/21/2024 Prescriptions ordered this encounter Disp Refills Start End ONDANSETRON HCL 4 MG TABLET 60 t* 1 12/21/2024 Route: PO Sig: Take 1 tablet by mouth every 8 hours as needed for nausea/vomiting. Encounter Status:Closed by YARELIS NEW on 12/21/24 Normal [facility] CBC W Auto Differential pane l (Bld)on 12-16-2024 Basophils (Bld) [#/Vol] 0.05 10*3/uL Normal <0.11 [facility] Comment on above: Order Comment: Speci men Type: BLOOD SPECIMENOrdering Facility: [facility] Address: [address] [place] [address] Performed By: #### 5 7021-8 ####[facility] [id number] [place] [address] [place] Basophils/100 WBC (Bld) 0.6 % Normal [facility] Comment on above: Order Comment: Speci men Type: BLOOD SPECIMENOrdering Facility: [facility] Address: [address] [place] [address] Performed By: #### 5 7021-8 ####[facility] BHUPENDRAPLEASANT HILLMARILEELIA [id number] [place] [address] [place] Differential cell count method Nom (Bld) Auto Normal [facility] Comment on above: Order Comment: Speci men Type: BLOOD SPECIMENOrdering Facility: [facility] Address: [address] [place] [address] Performed By: #### 5 7021-8 ####[facility] [id number] [place] [address] [place] Eosinophils (Bld) [#/Vol] 0.18 10*3/uL Normal <0.46 [facility] Comment on above: Order Comment: Speci men Type: BLOOD SPECIMENOrdering Facility: [facility] Address: [address] [place] [address] Performed By: #### 5 7021-8 ####[facility] [id number] [place] [address] [place] Eosinophils/100 WBC (Bld) 2.1 % Normal [facility] Comment on above: Order Comment: Speci men Type: BLOOD SPECIMENOrdering Facility: [facility] Address: [address] [place] [address] Performed By: #### 5 7021-8 ####[facility] [id number] [place] [address] [place] Erythrocyte distribution width (RBC) [Ratio] 14.8 % Normal 11.5-15.0 [facility] Comment on above: Order Comment: Speci men Type: BLOOD SPECIMENOrdering Facility: [facility] Address: [address] [place] [address] Performed By: #### 5 7021-8 ####[facility] [id number] [place] [address] [place] Hematocrit (Bld) [Volume fraction] 35.5 % Low 36.0-46.0 [facility] Comment on above: Order Comment: Speci men Type: BLOOD SPECIMENOrdering Facility: [facility] Address: [address] [place] [address] Performed By: #### 5 7021-8 ####[facility] [id number] [place] [address] [place] Hemoglobin (Bld) [Mass/Vol] 11.8 g/dL Normal 11.5-15.5 [facility] Comment on above: Order Comment: Speci men Type: BLOOD SPECIMENOrdering Facility: [facility] Address: [address] [place] [address] Performed By: #### 5 7021-8 ####[facility] [id number] [place] [address] [place] Immature granulocytes (Bld) [#/Vol] 10*3/uL Normal <0.10 [facility] Comment on above: Order Comment: Speci men Type: BLOOD SPECIMENOrdering Facility: [facility] Address: [address] [place] [address] Performed By: #### 5 7021-8 ####[facility] [id number] [place] [address] [place] Immature granulocytes/100 WBC (Bld) 0.2 % Normal [facility] Comment on above: Order Comment: Speci men Type: BLOOD SPECIMENOrdering Facility: [facility] Address: [address] [place] [address] Performed By: #### 5 7021-8 ####[facility] [id number] [place] [address] [place] Lymphocytes (Bld) [#/Vol] 1.78 10*3/uL Normal 1.00-4.00 [facility] Comment on above: Order Comment: Speci men Type: BLOOD SPECIMENOrdering Facility: [facility] Address: [address] [place] [address] Performed By: #### 5 7021-8 ####[facility] BHUPENDRAPatNCGURWINDERA [id number] [place] [address] [place] [facility] Lymphocytes/100 WBC (Bld) 20.3 % Normal [facility] Comment on above: Order Comment: Speci men Type: BLOOD SPECIMENOrdering Facility: [facility] Address: [address] [place] [address] Performed By: #### 5 7021-8 ####[facility] BHUPENDRAPLEASANT HILLNCGURWINDERPeter [id number] [place] [address] [place] MCH (RBC) [Entitic mass] 28.3 pg Normal 26.0-34.0 [facility] Comment on above: Order Comment: Speci men Type: BLOOD SPECIMENOrdering Facility: [facility] Address: [address] [place] [address] Performed By: #### 5 7021-8 ####[facility] HOSPITALNCGURWINDERA [id number] [place] [address] [place] MCHC (RBC) [Mass/Vol] 33.2 g/dL Normal 30.5-36.0 Ap [facility] Comment on above: Order Comment: Speci men Type: BLOOD SPECIMENOrdering Facility: [facility] Address: [address] [place] [address] Performed By: #### 5 7021-8 ####[facility] BHUPENDRAPLEASANT HILLNCLIA [id number] [place] [address] [place] MCV (RBC) [Entitic vol] 85.1 fL Normal 80.0-100.0 C [facility] Comment on above: Order Comment: Speci men Type: BLOOD SPECIMENOrdering Facility: [facility] Address: [address] [place] [address] Performed By: #### 5 7021-8 ####[facility]ITALMARILEEUT[facility] [id number] [place] [address] [place] Monocytes (Bld) [#/Vol] 0.58 10*3/uL Normal <0.87 [facility] Comment on above: Order Comment: Speci men Type: BLOOD SPECIMENOrdering Facility: [facility] Address: [address] [place] [address] Performed By: #### 5 7021-8 ####[facility]ENTERA [id number] [place] [address] [place] Monocytes/100 WBC (Bld) 6.6 % Normal [facility] Comment on above: Order Comment: Speci men Type: BLOOD SPECIMENOrdering Facility: [facility] Address: [address] [place] [address] Performed By: #### 5 7021-8 ####[facility] [id number] [place] [address] [place] Neutrophils (Bld) [#/Vol] 6.17 10*3/uL Normal 1.45-7.50 [facility] Comment on above: Order Comment: Speci men Type: BLOOD SPECIMENOrdering Facility: [facility] Address: [address] [place] [address] Performed By: #### 5 7021-8 ####[facility] HOSPITALLIA [id number] [place] [address] [place] Neutrophils/100 WBC (Bld) 70.2 % Normal [facility] Comment on above: Order Comment: Speci men Type: BLOOD SPECIMENOrdering Facility: [facility] Address: [address] [place] [address] Performed By: #### 5 7021-8 ####[facility] HOSPITALLIA [id number] [place] [address] [place] Nucleated RBC (Bld) [#/Vol] 10*3/uL Normal <0.01 [facility] Comment on above: Order Comment: Speci men Type: BLOOD SPECIMENOrdering Facility: [facility] Address: [address] [place] [address] Performed By: #### 5 7021-8 ####[facility] HOSPITALNCGURWINDER [id number] [place] [address] [place] Nucleated RBC/100 WBC (Bld) [Ratio] 0.0 /100 WBC Normal [facility] Comment on above: Order Comment: Speci men Type: BLOOD SPECIMENOrdering Facility: [facility] Address: [address] [place] [address] Performed By: #### 5 7021-8 ####[facility]OSPITALNCLI [id number] [place] [address] [place] Platelet mean volume (Bld) [Entitic vol] 10.4 fL Normal 9.0-12.7 [facility] Comment on above: Order Comment: Speci men Type: BLOOD SPECIMENOrdering Facility: [facility] Address: [address] [place] [address] Performed By: #### 5 7021-8 ####[facility]ITALNCLIA [id number] [place] [address] [place] Platelets (Bld) [#/Vol] 171 10*3/uL Normal 150-400 [facility] Comment on above: Order Comment: Speci men Type: BLOOD SPECIMENOrdering Facility: [facility] Address: [address] [place] [address] Performed By: #### 5 7021-8 ####[facility]ITALNCLIA [id number] [place] [address] [place] RBC (Bld) [#/Vol] 4.17 10*6/uL Normal 3.90-5.20 [facility] Comment on above: Order Comment: Speci men Type: BLOOD SPECIMENOrdering Facility: [facility] Address: [facility] [place] [address] Performed By: #### 5 7021-8 ####[facility] ITZ CARBONE [id number] [place] [address] [place] WBC (Bld) [#/Vol] 8.78 10*3/uL Normal 3.70-11.00 [facility] Comment on above: Order Comment: Speci men Type: BLOOD SPECIMENOrdering Facility: [facility] Address: [address] [place] [address] Performed By: #### 5 7021-8 ####[facility] [id number] [place] [address] [place] CNCOon 12-16-2024 CNCO Letter Text Normal [facility] Examination level ultrasound on 12-16-2024 Indication First trimester anatomic survey Impression The patient is referred for a first trimester anatomy scan including nuchal translucency measurement as clinically indicated. - Single, live, intrauterine . - Weatherby rump length measurement is consistent with the established gestational age. - A qualitative screen of the nuchal translucency and other anatomic structures was unremarkable on a complete first trimester anatomic assessment. - Not all structural malformations can be detected by ultrasound examination. - An anatomic survey at 18-20 weeks is recommended given no identified risk factors. Recommendations - An anatomic survey at 18-20 weeks given no identified risk factors. - Additional follow up as clinically indicated. Maternal Assessment Height (ft) 5 ft Height (in) 2 in Physical Exam Initial weight (lb) 112 lb Maternal assessment other: 5 Para 3 REMOTE READ Method Transabdominal ultrasound examination [place] . Number of fetuses: 1 Dating LMP on: 09/13/2024 GA by LMP 13 w + 3 d CHRISTIE by LMP: 06/20/2025 GA by prior assessment 12 w + 1 d CHRISTIE by prior assessment: 06/29/2025 Ultrasound examination on: 12/16/2024 GA by U/S based upon: CRL GA by U/S 12 w + 4 d CHRISTIE by U/S: 06/26/2025 Assigned: based on stated CHRISTIE, selected on 12/16/2024 Assigned GA 12 w + 1 d Assigned CHRISTIE: 06/29/2025 General Evaluation Cardiac activity present Placenta: anterior Cord vessels: 3 vessel cord Amniotic fluid: normal amount Biometry Standard FHR 151 bpm CRL 60.2 mm 12w 4d 65% Hadlock NT 1.30 mm First Trimester Anatomy Calvarium: normal Falx cerebri: normal Choroid plexus: normal Profile: normal Nasal bone: normal Retronasal triangle: normal Maxilla: normal Mandible: normal Nuchal translucency: Unremarkable Situs: normal Cardiac position: normal Cardiac axis: normal 4-chamber view: normal 4-chamber view with color: normal 9-guqoja-gtehfdl view: normal Abdominal cord insertion: normal Stomach: normal Kidneys: normal Bladder: normal Color doppler of perivesical umbilical arteries: normal Vertebral alignment: normal Arms: normal Hands: normal Legs: normal Feet: normal Maternal Structures Uterus / Cervix Uterus: Visualized Uterus length 113 mm Uterus width 95 mm Uterus height 82 mm Uterus Vol 461.0 cm Ovaries / Tubes / Adnexa Rt ovary: Visualized Rt ovary D1 25 mm Rt ovary D2 15 mm Rt ovary D3 19 mm Rt ovary Vol 3.8 cm Lt ovary: Visualized Lt ovary D1 22 mm Lt ovary D2 14 mm Lt ovary D3 15 mm Lt ovary Vol 2.4 cm Performed By: Lakesha Tillman RDMS, RVT Read By: Laura Haines M.D. MATERNAL MEDICINE [facility] Radiology Study observation (narrative) [facility] HBV surface Ag Ser Qlon 12-04 HBV surface Ag Ql (S) Negative Normal Negative [facility] Comment on above: Order Comment: Speci men Type: BLOOD SPECIMENOrdering Facility: [facility] Address: [address] [place] [address] Performed By: #### 5 195-3, 00101-3, 51936-1 ####[facility] LABCLIA [id number] [place] [address] [place] HCV Ab Ser Qlon 12-16-2024 HCV Ab Ql (S) Negative Normal Negative [facility] Comment on above: Order Comment: Speci men Type: BLOOD SPECIMENOrdering Facility: [facility] Address: [address] [place] [address] Result Comment: The result suggests no evidence of infection with Hepatitis C virus. Should recent infection be suspected, repeat testing may be considered 4-6 weeks after this draw. Performed By: #### 1 6128-1 ####[facility] LABCLIA [id number] [place] [address] [place] HIV 1+2 Ab IA Qlon 5 HIV 1 and 2 Ab IA.rapid Nom (S/P/Bld) Normal [facility] Comment on above: Order Comment: Speci men Type: BLOOD SPECIMENOrdering Facility: [facility] Address: [address] [place] [address] Result Comment: Test not indicated. Performed By: #### 5 195-3, 17619-5, 22785-3 ####[facility] LABIA [id number] [place] [address] [place] HIV 1+2 Ab+HIV1 p24 Ag IA Ql Non-Reactive Normal Nonreactive [facility] Comment on above: Order Comment: Speci men Type: BLOOD SPECIMENOrdering Facility: [facility] Address: [address] [place] [address] Performed By: #### 5 195-3, 78748-7, 71245-6 ####[facility] [id number] [place] [address] [place] HIV immunoassay testing algorithm interpretation (S/P/Bld) [Interp] Normal [facility] Comment on above: Order Comment: Speci men Type: BLOOD SPECIMENOrdering Facility: [facility] Address: [address] [place] [address] Result Comment: No e vidence of HIV-1 or HIV-2 infection. Should recent infection be suspected, repeat testing may be considered 2-3 weeks after this draw. [place] Rev. Code 3701.243(E): This information has been disclosed to you from confidential records protected from disclosure by state law. You shall make no further disclosure of this information without the specific, written, and informed release of the individual to whom it pertains or as otherwise permitted by state law. A general authorization for the release of medical or other information is not sufficient for the purpose of the release of HIV test results or diagnoses. Performed By: #### 5 195-3, 48449-1, 64683-8 ####[facility] LABCLIA [id number] [place] [id number] [place] HbA1c (Bld)on 12-16-2024 Average glucose Estimated from glycated hemoglobin (Bld) [Mass/Vol] 97 mg/dL Normal [facility] Comment on above: Order Comment: Speci men Type: BLOOD SPECIMENOrdering Facility: [facility] Address: [address] [place] [address] Result Comment: eAG: (Estimated average glucose) is a calculated value from HgbA1c and is brewery representative of the average blood glucose level in the last 2-3 month period. Performed By: #### 5 5454-3 ####[facility] LABIA [id number] [place] HbA1c (Bld) [Mass fraction] 5.0 % Normal 4.3-5.6 [facility] Comment on above: Order Comment: Speci men Type: BLOOD SPECIMENOrdering Facility: [facility] Address: [address] [place] [address] Result Comment: Amer [place] Diabetes Association guidelines indicate that patients with HgbA1c in the range 5.7-6.4% are at increased risk for development of diabetes, and intervention by lifestyle modification may be beneficial. HgbA1c greater or equal to 6.5% is considered diagnostic of diabetes. Performed By: #### 5 5454-3 ####[facility] LABIA [id number] [place] [id number] [place] [id number] PLUSon 12-16-2024 Cell-free DNA./Cell-free DNA.total Dosage of chromosome-specific cfDNA (cfDNA) [Molar fraction] 13% Normal [facility] Comment on above: Order Comment: Speci men Type: BLOOD SPECIMENOrdering Facility: [facility] Address: [address] [place] [address] Performed By: #### M AT21 ####[facility] LABCLIA [id number] [place] [address] Chr 13+18+21+X+Y aneuploidy Dosage of chromosome-specific cfDNA Ql (cfDNA) Negative Normal [facility] Comment on above: Order Comment: Speci men Type: BLOOD SPECIMENOrdering Facility: [facility] Address: [address] [place] [address] Performed By: #### M AT21 ####[facility] LABCLIA [id number] [place] [address] Chr 21 trisomy Dosage of chromosome-specific cfDNA Ql (cfDNA) Negative Normal [facility] Comment on above: Order Comment: Speci men Type: BLOOD SPECIMENOrdering Facility: [facility] Address: [address] [place] [address] Performed By: #### M AT21 ####[facility] LABCLIA [id number] [place] [address] Chr X and Y aneuploidy risk Sequencing Ql (cfDNA) [Interp] Not detected Normal [facility] Comment on above: Order Comment: Speci men Type: BLOOD SPECIMENOrdering Facility: [facility] Address: [address] [place] [address] Result Comment: Not Detected Not Detected Performed By: #### M AT21 ####[facility] LABCLIA [id number] [place] [address] Citation Uzair (Reference lab test) Comment Normal [facility] Comment on above: Order Comment: Speci men Type: BLOOD SPECIMENOrdering Facility: [facility] Address: [address] [place] [address] Result Comment: 1. P geneva TERRY, et al. Bernarda Med. 2012;14(3):296-305. 2. Jose Alfredo GUTIÉRREZ et al. Prenat Diag. 2013;33(6):591-597. 3. Jose Cruz C, et al. Clin Chem. 2015 Apr;61(4):608-616. 4. nora Harrison al. [place] Med. 2011;13(11):913-920. 5. ACOG/SMFM Practice Bulletin No. 226, Feb 2020. Performed By: #### M AT21 ####[facility] LABCLIA [id number] [place] [address] Gestational age Estimated from conception date [place] Normal [facility] Comment on above: Order Comment: Speci men Type: BLOOD SPECIMENOrdering Facility: [facility] Address: [address] [place] [address] Performed By: #### M AT21 ####[facility] LABCLIA [id number] [place] [address] GESTATIONALAGE AGE > OR = 9W Yes Normal [facility] Comment on above: Order Comment: Alphonse herrera Type: BLOOD SPECIMENOrdering Facility: [facility] Address: [address] [place] [address] Performed By: #### M AT21 ####[facility] LABCLIA [id number] [place] [address] Laboratory comment Uzair (Report) Comment Normal [facility] Comment on above: Order Comment: Alphonse herrera Type: BLOOD SPECIMENOrdering Facility: [facility] Address: [address] [place] [address] Result Comment: The MaterniT(R) 21 PLUS laboratory-developed test (LDT) analyzes circulating cell-free DNA from a maternal blood sample. This test is used for screening purposes and not diagnostic. Clinical correlation is recommended. Validation data on twin pregnancies is limited and the ability of this test to detect aneuploidy in higher multiple gestations has not yet been validated. Performed By: #### M AT21 ####[facility] LABCLIA [id number] [place] [address] editorial director name Nom (Provider) Comment Normal [facility] Comment on above: Order Comment: Alphonse herrera Type: BLOOD SPECIMENOrdering Facility: [facility] Address: [address] [place] [address] Result Comment: This specimen showed an expected representation of chromosome 21, 18 and 13 material. Clinical correlation is suggested. Comment Geovanny Westbrook MD, PhD, Director, [employer] Performed By: #### M AT21 ####[facility] LABCLIA [id number] [place] [address] LIMITATIONS OF THE TEST Comment Normal C [facility] Comment on above: Order Comment: Speci men Type: BLOOD SPECIMENOrdering Facility: [facility] Address: [facility] [place] [address] Result Comment: Frank cuello the results of these tests are highly reliable, discordant results, including inaccurate sex prediction, may occur due to placental, maternal, or mosaicism or neoplasm; vanishing twin; prior maternal organ transplant; or other causes. These tests are screening tests and not diagnostic; they do not replace the accuracy and precision of diagnosis with CVS or amniocentesis. A patient with a positive test result should be referred for genetic counseling and offered invasive diagnosis for confirmation of test results.[5] The results of this testing, including the benefits and limitations, should be discussed with a qualified healthcare provider. management decisions, including termination of the , should not be based on the results of these tests alone. The healthcare provider is responsible for the use of this information in the management of their patient. Sex chromosomal aneuploidies are not reportable for known multiple gestations. A negative result does not ensure an unaffected nor does it exclude the possibility of other chromosomal abnormalities or defects which are not a part of these tests. An uninformative result may be reported, the causes of which may include, but are not limited to, insufficient sequencing coverage, noise or artifacts in the region, amplification or sequencing bias, or insufficient fraction. These tests are not intended to identify pregnancies at risk for neural tube defects or ventral wall defects. Testing for whole chromosome abnormalities (including sex chromosomes) and for subchromosomal abnormalities could lead to the potential discovery of both and maternal genomic abnormalities that could have major, minor, or no, clinical significance. Evaluating the significance of a positive or a non-reportable result may involve both invasive testing and additional studies on the mother. Such investigations may lead to a diagnosis of maternal chromosomal or subchromosomal abnormalities, which on occasion may be associated with benign or malignant maternal neoplasms. These tests may not accurately identify triploidy, balanced rearrangements, or the precise location of subchromosomal duplications or deletions; these may be detected by diagnosis with CVS or amniocentesis. The ability to report results may be impacted by maternal BMI, maternal weight, maternal systemic lupus erythematosus (SLE) and/or by certain pharmaceutical agents such as low molecular weight heparin (for example: Lovenox(R), Xaparin(R), Clexane(R) and Fragmin(R)). Performed By: #### M AT21 ####[facility] EnergyIA [id number] [place] [id number] Monosomy X risk Dosage of chromosome-specific cfDNA Ql (Plasma cell-free+WBC DNA) [Interp] Not detected Normal [facility] Comment on above: Order Comment: Alphonse herrera Type: BLOOD SPECIMENOrdering Facility: [facility] Address: [address] [place] [address] Performed By: #### M AT21 ####[employer] EnergyIA [id number] [place] [id number] NEGATIVE PREDICTIVE VALUE Note Normal [facility] Comment on above: Order Comment: Alphonse herrera Type: BLOOD SPECIMENOrdering Facility: [facility] Address: [address] [place] [address] Result Comment: The Negative Predictive Value (NPV) for trisomy 21, 18, and 13 is greater than 99%. The NPV for SCA and ESS cannot be calculated as SCA and ESS are only reported when an abnormality is detected. Performed By: #### M AT21 ####[employer] EnergyIA [id number] [place] [id number] PERFORMANCE CHARACTERISTICS Note Normal [facility] Comment on above: Order Comment: Alphonse herrera Type: BLOOD SPECIMENOrdering Facility: [facility] Address: [address] [place] [address] Result Comment: ! Sex ! Accuracy: 99.4% ! ! ! ! Region (associated syndrome) ! Est. Sens# ! Est. Spec ! ! ! ! Trisomy 21 (Down Syndrome) ! 99.1% ! 99.9% ! ! ! ! Trisomy 18 (Harp Syndrome) ! >99.9% ! 99.6% ! ! ! ! Trisomy 13 (Patau Syndrome) ! 91.7% ! 99.7% ! ! ! ! Sex Chromosome Aneuploidies## ! 96.2% ! 99.7% ! ! ! * As reported in [facility] database nstd37 [https://www.ncbi.nlm.nih.gov/dbvar/studies/nstd37/ ] # Estimated Sensitivity. Sensitivity estimated across the observed size distribution of each syndrome [per ISCA database nstd37] and across the range of fractions observed in routine clinical NIPT. Actual sensitivity can also be influenced by other factors such as the size of the event, total sequence counts, amplification bias, or sequence bias. ## [place] gestation only. Performed By: #### M AT21 ####[facility] LABCLIA [id number] [place] [address] POSITIVE PREDICTIVE VALUE N/A Normal [facility] Comment on above: Order Comment: Speci men Type: BLOOD SPECIMENOrdering Facility: [facility] Address: [address] [place] [address] Performed By: #### M AT21 ####[facility] LABCLIA [id number] [place] [address] Reference Lab Test Method Comment Normal [facility] Comment on above: Order Comment: Speci men Type: BLOOD SPECIMENOrdering Facility: [facility] Address: [address] [place] [address] Result Comment: Circ ulating cell-free DNA was purified from the plasma component of maternal blood. The extracted DNA was then converted into a genomic DNA library for aneuploidy analysis of chromosomes 21, 18, and 13 via next generation sequencing.[1] Optional findings based on the test order include sex chromosome aneuploidy (SCA)[2], and enhanced sequencing series (ESS)[3], which will only be reported on as an additional finding when an abnormality is detected. SCA testing includes information on X and Y representation, while ESS testing includes deletions in selected regions (22q, 15q, 11q, 8q, 5p, 4p, 1p) and trisomy of chromosomes 16 and 22. Performed By: #### M AT21 ####[facility] LABCLIA [id number] [place] [address] Service comment (Unsp spec) [Interp] Comment Normal [facility] Comment on above: Order Comment: Speci men Type: BLOOD SPECIMENOrdering Facility: [facility] Address: [address] [place] [address] Result Comment: [facility]. is a subsidiary of [employer], using the brand Evomail. This test was developed and its performance characteristics determined by [facility]. It has not been cleared or approved by the Food and Drug Administration. This laboratory is certified under the Clinical Laboratory Improvement Amendments (CLIA) as qualified to perform high complexity clinical laboratory testing and accredited by the [employer] (CAP). If there is future clinical need for adding MaterniT GENOME testing, this specimen will be available until term. [facility] samples will not be retained beyond 60 days. [facility] patients will have to send a new sample for re-sequencing ([facility] Test Code: 565860). Performed By: #### M AT21 ####[facility] LABCLIA [id number] [place] [address] Sex Dosage of chromosome-specific cfDNA Nom (cfDNA) Comment Normal [facility] Comment on above: Order Comment: Speci men Type: BLOOD SPECIMENOrdering Facility: [facility] Address: [address] [place] [address] Result Comment: Cons istent with Male Performed By: #### M AT21 ####[facility] LABCLIA [id number] [place] [address] Test performance information Uzair (Unsp spec) Comment Normal [facility] Comment on above: Order Comment: Speci men Type: BLOOD SPECIMENOrdering Facility: [facility] Address: [address] [place] [address] Result Comment: The performance characteristics of the MaterniT(R) 21 PLUS laboratory-developed test (LDT) have been determined in a clinical validation study with women at increased risk for chromosomal aneuploidy.[1-4] Performed By: #### M AT21 ####[facility] LABCLIA [id number] [place] [address] Trisomy 13 risk Dosage of chromosome-specific cfDNA Ql (cfDNA) [Interp] Negative Normal [facility] Comment on above: Order Comment: Speci men Type: BLOOD SPECIMENOrdering Facility: [facility] Address: [address] [place] [address] Performed By: #### M AT21 ####[facility] LABCLIA [id number] [place] [address] Trisomy 18 risk Dosage of chromosome-specific cfDNA Ql (Plasma cell-free+WBC DNA) [Interp] Negative Normal [facility] Comment on above: Order Comment: Alphonse hsaron Type: BLOOD SPECIMENOrdering Facility: [facility] Address: [address] [place] [address] Performed By: #### M AT21 ####[facility] LABCLIA [id number] [place] [address] RUBELLA IGG ANTIBODYon 12-16 RUBELLA IGG AB, QUAL Negative Abnormal Positive [facility] Comment on above: Order Comment: Alphonse sharon Type: BLOOD SPECIMENOrdering Facility: [facility] Address: [address] [place] [address] Result Comment: The result suggests no history of Rubella vaccination or exposure to Rubella virus, however, some individuals with past history of Rubella vaccination may test negative using this test as immunity to Rubella virus wanes over time after vaccination. Please correlate with vaccination history if applicable. Performed By: #### R UBIGG ####[facility] LABCLIA [id number] [place] [address] [place] Reagin and Treponema pallidu m IgG and IgM [Interp]on 12-16-2024 T. pallidum IgG+IgM IA Ql (S) Non-Reactive Normal Nonreactive [facility] Comment on above: Order Comment: Alphonse sharon Type: BLOOD SPECIMENOrdering Facility: [facility] Address: [address] [place] [address] Performed By: #### 5 195-3, 73005-7, 76039-5 ####[facility] LABCLIA [id number] [place] [address] [place] Reagin+T pallidum IgG+IgM Se rPl-Impon 12-16-2024 Reagin and Treponema pallidum IgG and IgM [Interp] Cannot exclude recent Treponemal infection if specimen collected within 7-10 days after appearance of suspect lesions or 2-3 weeks after an exposure. Clinical correlation is required. Normal [facility] Comment on above: Order Comment: Speci men Type: BLOOD SPECIMENOrdering Facility: [facility] Address: [address] [place] [address] Performed By: #### 5 195-3, 51422-9, 78840-4 ####[facility] LABCLIA [id number] [address] [place] TYPE + SCREEN PRENATALon ABO A Normal [facility] Comment on above: Order Comment: Speci men Type: BLOOD SPECIMENOrdering Facility: [facility] Address: [address] [place] [address] Performed By: #### T SPN ####[facility] BLOOD BANKCLIA [id number] [place] [address] [place] Rh Nom (Bld) Positive Normal [facility] Comment on above: Order Comment: Speci men Type: BLOOD SPECIMENOrdering Facility: [facility] Address: [address] [place] [address] Performed By: #### T SPN ####[facility] BLOOD BANKCLIA [id number] [address] TYPE AND SCREEN EXPIRATION 12/19/2024 23:59 Normal [facility] Comment on above: Order Comment: Speci men Type: BLOOD SPECIMENOrdering Facility: [facility] Address: [address] [place] [address] Performed By: #### T SPN ####[facility] BLOOD BANKCLIA [id number] [place] [address] [place] Bacteria Ur Culton Bacteria identified Cx Nom (U) ORGANISM ID: 1 >=100,000 CFU/ml Escherichia coli ORGANISM ID: 1 (ESCHERICHIA COLI) ------ ANTIBIOTIC INTERPRETATION REGINALDO STATUS REFERENCE RANGE ------ Ampicillin S 8 F Susceptible <=8 , Intermediate >8 , Resistant >16 Cefazolin S <=4 F Susceptible 0-16 , Intermediate <0 or >16 , Resistant >16 For uncomplicated urinary tract infections, cefazolin results can be used to predict susceptibility or resistance to cephalexin. Ceftriaxone S <=1 F Susceptible <=1 , Intermediate >1 , Resistant >=4 Cefepime S <=1 F Susceptible <=2 , Susceptible-Dose Dependent >2 , Resistant >=16 Ertapenem S <=0.5 F Susceptible <=0.5 , Intermediate >.5 , Resistant >1 Meropenem S <=0.25 F Susceptible <=1 , Intermediate >1 , Resistant >2 Ampicillin/Sulbact S <=2 F Susceptible <=8 , Intermediate >8 , Resistant >16 Piperacillin/Tazobac S <=4 F Susceptible <16 , Susceptible-Dose Dependent >=16 , Resistant >=32 Gentamicin S <=1 F Susceptible <=2 , Intermediate >2 , Resistant >=8 Tobramycin S <=1 F Susceptible <4 , Intermediate >=4 , Resistant >=8 Trimeth sulfameth S <=20 F Susceptible <=40 , Resistant >40 Ciprofloxacin S <=0.25 F Susceptible <0.5 , Intermediate >=.5 , Resistant >=1 Nitrofurantoin S <=16 F Susceptible <=32 , Intermediate >32 , Resistant >64 Abnormal [facility] Comment on above: Performed By: #### 6 30-4 ####[facility] LABCLIA [id number] [address] [place] CNOVon 12-14-2024 CNOV Office Visit ([facility]) KIMANI OWENS ([id number]) 2000 F Date Time Provider Department 12/14/24 3:30 PM MACARENA MEHTA During your visit today, we recorded the following information about you: Temperature Pulse Respiration Blood pressure 99.2 degrees 90/minute 18/minute 122/64 Weight 53.3 kg Macarena Mehta PA-C 12/14/2024 3:45 PM Signed [facility] Subjective Kimani Owens is a 24 year old female. Patient presents with: Urinary Frequency: Frequency and burning x 2 days Patient is a 24-year-old female who complains of burning with urination and urinary frequency that she has been experiencing for the past 2 days. Patient denies fever, chills, hematuria, flank pain, nausea or other symptoms. Patient reports no abnormal vaginal bleeding or discharge. Patient does have a history of recurrent urinary tract infection and her last UTI in November 2024 was positive for E. coli which was susceptible to Macrobid. Patient states that her symptoms fully resolved after completing the antibiotic course and that her current symptoms were present a new episode. Patient is in her first trimester of at approximately 11 weeks gestation. Patient states that she does have an appointment scheduled to see her DELIVERY DRIVER/CUSTOMER SERVICE on 16 December 2024. Review of Systems Genitourinary: Positive for dysuria, frequency and urgency. All other systems reviewed and are negative. Objective BP 122/64 Pulse 90 Temp 37.3 ?C (99.2 ?F) (Tympanic) Resp 18 Wt 53.3 kg (117 lb 8.1 oz) LMP 09/13/2024 SpO2 98% BMI 20.17 kg/m? Physical Exam Vitals and nursing note reviewed. Constitutional: Appearance: Normal appearance. She is normal weight. HENT: Head: Normocephalic and atraumatic. Right Ear: External ear normal. Left Ear: External ear normal. Nose: Nose normal. Mouth/Throat: Mouth: Mucous membranes are moist. Pharynx: Oropharynx is clear. Eyes: Extraocular Movements: Extraocular movements intact. Conjunctiva/sclera: Conjunctivae normal. Pupils: Pupils are equal, round, and reactive to light. Cardiovascular: Rate and Rhythm: Normal rate. Pulses: Normal pulses. Heart sounds: Normal heart sounds. Pulmonary: Effort: Pulmonary effort is normal. Breath sounds: Normal breath sounds. Abdominal: General: Abdomen is flat. Palpations: Abdomen is soft. Musculoskeletal: Cervical back: Normal range of motion and neck supple. Skin: General: Skin is warm and dry. Capillary Refill: Capillary refill takes less than 2 seconds. Neurological: General: No focal deficit present. Mental Status: She is alert and oriented to person, place, and time. Psychiatric: Mood and Affect: Mood normal. Behavior: Behavior normal. Thought Content: Thought content normal. Judgment: Judgment normal. MDM Physical exam findings as noted above. Urinalysis shows no evidence of leukocyte esterase, nitrite, protein or blood. Given the patient's recent history, urine culture was ordered. Patient declines testing for bacterial vaginosis and Nemo and states that she will follow-up with her DELIVERY DRIVER/CUSTOMER SERVICE at the appointment that is scheduled for 16 December 2024. CLINICAL IMPRESSION: Dysuria; Urinary Frequency ASSESSMENT/PLAN: 1. Urinary frequency - ICD9: 788.41, ICD10: R35.0 (primary diagnosis) - UA DIP, URINE (POC) - BACTERIAL CULTURE, URINE 2. Dysuria - ICD9: 788.1, ICD10: R30.0 MDM Amount and/or Complexity of Data Reviewed Clinical lab tests: ordered and reviewed Risk of Complications, Morbidity, and/or Mortality Presenting problems: low Diagnostic procedures: low Management options: nevin Mehta PA-C Allergies As of Date: 12/14/2024 Noted Allergy Reaction KEFLEX (CEPHALEXIN) 03/09/2024 14 - Other: See Comments Comments: thrombocytopenia Date Reviewed: 12/14/2024 Reviewed by: Inna Moise LPN - Fully Assessed Reason for Visit: Urinary Frequency [1086] Cmt: Frequency and burning x 2 days Primary Visit Diagnosis:Urinary frequency [R35.0] Other Visit Diagnosis:Dysuria [R30.0] Order(s):UA DIP, URINE (POC) [[id number]] Order #: [id number]. #:[id number] BACTERIAL CULTURE, URINE [SQURCUL] Order #: [id number]. #:[id number] Prescriptions as of 12/14/2024 - aspirin, enteric coated (ECOTRIN LOW STRENGTH) 81 mg EC tablet Take 1 tablet by mouth once daily. - FLUoxetine (PROZAC) 20 mg capsule Take 1 capsule by mouth once daily. - acetaminophen (TYLENOL EXTRA STRENGTH) 500 mg tablet Take 1,000 mg by mouth every 8 hours as needed. Problem List As Of Date 12/14/2024 Noted Resolved Depression with anxiety [F41.8] Endometriosis [N80.9] 12/10/2018 Right flank pain [R10.9] 11/12/2023 11/21/2023 with care elsewhere in [facility]*11/21/2023 06/04/2024 History of recurrent UTI (urinary tract infecti*11/21/2023 History of miscarriage [Z87.59] (more content not included)... Normal [facility] UA DIP, URINE (POC)on 2024 BILIRUBIN UA (POCT) Negative Negative [facility] CLARITY UA (POCT) Clear [facility] COLOR UA (POCT) Yellow [facility] GLUCOSE UA (POCT) Negative Negative mg/dL [facility] Hemoglobin Ql (U) Negative Negative [facility] KETONE UA (POCT) Negative Negative mg/dL [facility] LEUKOCYTES UA (POCT) Negative Negative [facility] NITRITE UA (POCT) Negative Negative [facility] PH UA (POCT) 7.0 4.5 - 8.0 [facility] Protein Ql (U) Negative Negative mg/dL [facility] SPECIFIC GRAVITY UA (POCT) 1.020 1.005 - 1.030 [facility] UROBILINOGEN UA (POCT) 0.2 Normal E.U./d L [facility] Location:[address], [place], [address] [facility] POINT OF CARE [facility] Examination level ultrasound on 11-26-2024 Indication routine viability scan Impression Normal appearing anteverted uterus measuring 90 mm x 108 mm x 95 mm. The central endometrial complex contains a gestational sac with a yolk sac and pole measuring 26 mm. cardiac activity is present. CRL is consistent with 9 weeks 2 days and CHRISTIE 06/29/2025. Both ovaries are visualized and appear normal with follicular change. No adnexal masses identified. There is no free fluid visualized in the peritoneal cavity. Recommendations [place] live intrauterine with CHRISTIE 06/29/2025. Method Transabdominal ultrasound examination, 3D ultrasound examination, Color Doppler examination. View: Adequate visualization [place] . Number of embryos: 1 Dating LMP on: 09/13/2024 GA by LMP 10 w + 4 d CHRISTIE by LMP: 06/20/2025 Ultrasound examination on: 11/26/2024 GA by U/S based upon: CRL GA by U/S 9 w + 3 d CHRISTIE by U/S: 06/28/2025 Assigned: based on ultrasound (CRL), selected on 11/11/2024 Assigned GA 9 w + 2 d Assigned CHRISTIE: 06/29/2025 Assessment Gestational sac: visualized Location: intrauterine Yolk sac: visualized YS 5.8 mm 86% Gr[place]ia Embryo: visualized CRL 26.0 mm 9w 3d 61% [place] Cardiac activity: present FHR 171 bpm Uterus Uterus: Visualized Uterus position: anteverted Description of uterine malformations: normally shaped Myometrium: normal Cervix details: normal Uterus length 90 mm Uterus width 108 mm Uterus height 95 mm Uterus Vol 483.3 cm Cul de Sac Visualized. no free fluid visualized Right Ovary Rt ovary: Visualized Rt ovary morphology: premenopausal normal follicular Rt ovary D1 24 mm Rt ovary D2 17 mm Rt ovary D3 20 mm Rt ovary Vol 4.2 cm Left Ovary Lt ovary: Visualized Lt ovary morphology: premenopausal normal follicular Lt ovary D1 33 mm Lt ovary D2 26 mm Lt ovary D3 16 mm Lt ovary Vol 7.3 cm Performed By: Perlita Tovar RDMS Read By: Tony Vital M.D. MATERNAL MEDICINE [facility] Radiology Study observation (narrative) Cameron pruitt [facility] Bacteria Ur Culton 5 Bacteria identified Cx Nom (U) ORGANISM ID: 1 >=100,000 CFU/ml Escherichia coli ORGANISM ID: 1 (ESCHERICHIA COLI) ------ ANTIBIOTIC INTERPRETATION REGINALDO STATUS REFERENCE RANGE ------ Ampicillin S 4 F Susceptible <=8 , Intermediate >8 , Resistant >16 Cefazolin S <=4 F Susceptible 0-16 , Intermediate <0 or >16 , Resistant >16 For uncomplicated urinary tract infections, cefazolin results can be used to predict susceptibility or resistance to cephalexin. Ceftriaxone S <=1 F Susceptible <=1 , Intermediate >1 , Resistant >=4 Cefepime S <=1 F Susceptible <=2 , Susceptible-Dose Dependent >2 , Resistant >=16 Ertapenem S <=0.5 F Susceptible <=0.5 , Intermediate >.5 , Resistant >1 Meropenem S <=0.25 F Susceptible <=1 , Intermediate >1 , Resistant >2 Ampicillin/Sulbact S <=2 F Susceptible <=8 , Intermediate >8 , Resistant >16 Piperacillin/Tazobac S <=4 F Susceptible <16 , Susceptible-Dose Dependent >=16 , Resistant >=32 Gentamicin S <=1 F Susceptible <=2 , Intermediate >2 , Resistant >=8 Tobramycin S <=1 F Susceptible <4 , Intermediate >=4 , Resistant >=8 Trimeth sulfameth S <=20 F Susceptible <=40 , Resistant >40 Ciprofloxacin S <=0.25 F Susceptible <0.5 , Intermediate >=.5 , Resistant >=1 Nitrofurantoin S <=16 F Susceptible <=32 , Intermediate >32 , Resistant >64 Abnormal [facility] Comment on above: Performed By: #### 6 30-4 ####[facility] LABIA [id number] [address] STATES OF [facility] CNOVon 11-25-2024 CNOV Office Visit (WOUCA) KIMANI OWENS ([id number]) 2000 F Date Time Provider Department 11/25/24 4:15 PM MAICO SOSA During your visit today, we recorded the following information about you: Temperature Pulse Respiration Blood pressure 98.7 degrees 88/minute 16/minute 102/60 Weight 50.2 kg Maico Sosa APRN.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 11/25/2024 4:29 PM Signed [facility]RGENT CARE ITZ Subjective Kimani Owens is a 24 year old female. Patient presents with: Urinary Frequency: burning with urination, nausea x today HPI Nontoxic-appearing 9-week female presents urgent care chief complaint possible UTI. Duration of symptoms 1 day. Associated symptoms nausea dysuria frequency and urgency. History of UTIs this is similar. Does follow with urology. No vaginal discharge itching or burning. No loss of fluid. No vomiting. No flank pain or fevers. No abdominal pain. Past medical history prescription medications allergies reviewed Review of Systems Constitutional: Negative for chills, fatigue and fever. Gastrointestinal: Positive for nausea. Negative for abdominal distention, abdominal pain, rectal pain and vomiting. Genitourinary: Positive for dysuria and frequency. Negative for difficulty urinating, dyspareunia, flank pain, genital sores, hematuria, urgency, vaginal bleeding, vaginal discharge and vaginal pain. Objective BP 102/60 Pulse 88 Temp 37.1 ?C (98.7 ?F) Resp 16 Wt 50.2 kg (110 lb 10.7 oz) LMP 09/13/2024 SpO2 97% BMI 19.00 kg/m? Physical Exam Constitutional: Appearance: Normal appearance. HENT: Mouth/Throat: Mouth: Mucous membranes are moist. Cardiovascular: Rate and Rhythm: Normal rate. Pulmonary: Effort: Pulmonary effort is normal. Breath sounds: Normal breath sounds. Abdominal: Tenderness: There is abdominal tenderness in the suprapubic area. There is no right CVA tenderness, left CVA tenderness, guarding or rebound. Comments: Mild Neurological: Mental Status: She is alert. {ASSESSMENT/PLAN: 1. Urinary frequency - ICD9: 788.41, ICD10: R35.0 - UA DIP, URINE (POC) - BACTERIAL CULTURE, URINE Small protein and ketones noted on urine dip negative for leukocytes nitrites blood. With presenting symptoms previous positive urine culture treat for acute cystitis. Placed on amoxicillin has tolerated this in the past. Follow-up with DELIVERY DRIVER/CUSTOMER SERVICE as scheduled tomorrow. Patient was educated on supportive therapies. Patient will follow up with primary care provider as needed. Patient was instructed to immediately proceed to emergency room for any new, worsening, or symptoms lasting longer than anticipated. The patient's clinical presentation is otherwise unremarkable at this time. Based on exam and clinical finding, the patient is stable for discharge. Plan of care was discussed with patient. Patient verbalizes understanding and agrees to plan of care. This note was generated using [employer] software. It may contain errors in wording, punctuation, or spelling. Maico Sosa APRN.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 MDM Procedures Allergies As of Date: 11/25/2024 Noted Allergy Reaction KEFLEX (CEPHALEXIN) 03/09/2024 14 - Other: See Comments Comments: thrombocytopenia Date Reviewed: 11/25/2024 Reviewed by: Maico Sosa APRN.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 - Fully Assessed Reason for Visit: Urinary Frequency [1086] Cmt: burning with urination, nausea x today Primary Visit Diagnosis:Urinary frequency [R35.0] Order(s):UA DIP, URINE (POC) [[id number]] Order #: [id number]. #:[id number] BACTERIAL CULTURE, URINE [SQURCUL] Order #: [id number]. #:[id number] amoxicillin (AMOXIL) 875 mg tabletTake 1 tablet by mouth two times a day for 5 days.Disp: 14 tabletRfl: 0 Prescriptions as of 11/25/2024 - amoxicillin (AMOXIL) 875 mg tablet Take 1 tablet by mouth two times a day for 5 days. - aspirin, enteric coated (ECOTRIN LOW STRENGTH) 81 mg EC tablet Take 1 tablet by mouth once daily. - FLUoxetine (PROZAC) 20 mg capsule Take 1 capsule by mouth once daily. - acetaminophen (TYLENOL EXTRA STRENGTH) 500 mg tablet Take 1,000 mg by mouth every 8 hours as needed. Problem List As Of Date 11/25/2024 Noted Resolved Depression with anxiety [F41.8] Endometriosis [N80.9] 12/10/2018 Right flank pain [R10.9] 11/12/2023 11/21/2023 [facility]11/21/2023 06/04/2024 History of recurrent UTI (urinary tract infecti*11/21/2023 History of miscarriage [Z87.59] 11/21/2023 Dysuria [R30.0] 11/21/2023 Circumvallate placenta, second trimester [O43.1*11/21/2023 06/04/2024 Encounter for supervision of high risk pregnanc*11/21/2023 06/04/2024 Benign gestational thrombocytopenia in second t*12/05/2023 06/04/2024 Recurrent UTI [N39.0] 12/18/2023 History of kidney stones [Z87.442] 12/18/2023 Heartburn during in third trimester [*02/19/2024 06/04/2024 Poly (more content not included)... Normal [facility] UA DIP, URINE (POC)on 2024 BILIRUBIN UA (POCT) Negative Negative [facility] CLARITY UA (POCT) Clear [facility] COLOR UA (POCT) Yellow [facility] GLUCOSE UA (POCT) Negative Negative mg/dL [facility] Hemoglobin Ql (U) Negative Negative [facility] Interpretation and review of laboratory results Abnormal [facility] KETONE UA (POCT) Trace Negative mg/dL [facility] LEUKOCYTES UA (POCT) Negative Negative [facility] NITRITE UA (POCT) Negative Negative [facility] PH UA (POCT) 7 4.5 - 8.0 [facility] Protein Ql (U) 30 mg/dL Abnormal Negative [facility] SPECIFIC GRAVITY UA (POCT) 1.02 1.005 - 1.030 [facility] UROBILINOGEN UA (POCT) 1 Normal E.U./d L [facility] Location:[facility], [address], [place], [address] [facility] POINT OF CARE [facility] CNPNon 11-12-2024 CNPN Telephone (OGFVWE) VALENTEKIMANI ([id number]) 2000 F Date Time Provider Department 11/12/24 NURSE DOCUMENTATION DESIGNER [facility] During your visit today, we recorded the following information about you: Dawson Pratt RN 11/12/2024 11:12 AM Signed 1st risk assessment form submitted 11/12. Dawson Pratt RN Allergies As of Date: 11/12/2024 Noted Allergy Reaction KEFLEX (CEPHALEXIN) 03/09/2024 14 - Other: See Comments Comments: thrombocytopenia Date Reviewed: 11/11/2024 Reviewed by: Anita Ley MA - Fully Assessed Reason for Visit: PRAF [4193] Prescriptions as of 11/12/2024 - aspirin, enteric coated (ECOTRIN LOW STRENGTH) 81 mg EC tablet Take 1 tablet by mouth once daily. - FLUoxetine (PROZAC) 20 mg capsule Take 1 capsule by mouth once daily. - acetaminophen (TYLENOL EXTRA STRENGTH) 500 mg tablet Take 1,000 mg by mouth every 8 hours as needed. Problem List As Of Date 11/12/2024 Noted Resolved Depression with anxiety [F41.8] Endometriosis [N80.9] 12/10/2018 Right flank pain [R10.9] 11/12/2023 11/21/2023 with care elsewhere in [facility]*11/21/2023 06/04/2024 History of recurrent UTI (urinary tract infecti*11/21/2023 History of miscarriage [Z87.59] 11/21/2023 Dysuria [R30.0] 11/21/2023 Circumvallate placenta, second trimester [O43.1*11/21/2023 06/04/2024 Encounter for supervision of high risk pregnanc*11/21/2023 06/04/2024 Benign gestational thrombocytopenia in second t*12/05/2023 06/04/2024 Recurrent UTI [N39.0] 12/18/2023 History of kidney stones [Z87.442] 12/18/2023 Heartburn during in third trimester [*02/19/2024 06/04/2024 Polyhydramnios in third trimester [O40.3XX0] 02/27/2024 06/04/2024 Missed menses [N92.6] 07/22/2024 Encounter for supervision of normal i*11/11/2024 with uncertain dates, antepartum (HCC*11/11/2024 Encounter Status:Closed by DAWSON PRATT on 11/12/24 Normal [facility] C. trachomatis+N. gonorrhoea e DNA ASHLIE+probe Ql (Unsp spec)on 11-11-2024 C. trachomatis rRNA ASHLIE+probe Ql (Unsp spec) Not detected Normal Not detected [facility] Comment on above: Order Comment: Speci men Type: SWABOrdering Facility: [facility] Address: [address] [place] [address] Performed By: #### 3 6902-5, TRVAMP ####[facility] LABIA [id number] [address] [place] N. gonorrhoeae rRNA ASHLIE+probe Ql (Unsp spec) Not detected Normal Not detected [facility] Comment on above: Order Comment: Speci men Type: SWABOrdering Facility: [facility] Address: [address] [place] [address] Performed By: #### 3 6902-5, TRVAMP ####[facility] LABIA [id number] [place] [id number] [place] POC ROLLOFF TRUCK DRIVER ULTRASOUNDon 11-12-19 Indication Viability; confirm cardiac activity, Uncertain dates Impression Single intrauterine gestational sac, CRL indicates discrepancy from clinical dates, CHRISTIE based on today's ultrasound Recommendations Follow-up ultrasound in at least 14 days. Method Transvaginal ultrasound examination [place] . Number of embryos: 1 Dating LMP on: 09/13/2024 GA by LMP 8 w + 3 d CHRISTIE by LMP: 06/20/2025 Ultrasound examination on: 11/11/2024 GA by U/S based upon: CRL GA by U/S 7 w + 1 d CHRISTIE by U/S: 06/29/2025 Assigned: based on ultrasound (CRL), selected on 11/11/2024 Assigned GA 7 w + 1 d Assigned CHRISTIE: 06/29/2025 Biometry Standard CRL 10.3 mm 7w 1d 86% [place] Assessment Gestational sac: visualized Location: intrauterine Yolk sac: visualized Embryo: visualized CRL 10.3 mm 7w 1d 86% [place] Cardiac activity: present General Evaluation Cardiac activity present Performed By: Kaya Coleman CNM Read By: Kaya Coleman CNM MATERNAL MEDICINE [facility] Radiology Study observation (narrative) Cameron pruitt [facility] TRICHOMONAS VAGINALIS NAATon 11-11-2024 T. vaginalis DNA ASHLIE+probe Ql (Unsp spec) Not detected Normal Not detected [facility] Comment on above: Order Comment: Speci men Type: SWABOrdering Facility: [facility] Address: [address] [place] [address] Performed By: #### 3 6902-5, HANANE ####[facility] LABCLIA [id number] [place] [address] [place] Bacteria Ur Culton 5 Bacteria identified Cx Nom (U) ORGANISM ID: 1 >=100,000 CFU/ml Escherichia coli ORGANISM ID: 1 (ESCHERICHIA COLI) ------ ANTIBIOTIC INTERPRETATION REGINALDO STATUS REFERENCE RANGE ------ Ampicillin S 8 F Susceptible <=8 , Intermediate >8 , Resistant >16 Cefazolin S <=4 F Susceptible 0-16 , Intermediate <0 or >16 , Resistant >16 For uncomplicated urinary tract infections, cefazolin results can be used to predict susceptibility or resistance to cephalexin. Ceftriaxone S <=1 F Susceptible <=1 , Intermediate >1 , Resistant >=4 Cefepime S <=1 F Susceptible <=2 , Susceptible-Dose Dependent >2 , Resistant >=16 Ertapenem S <=0.5 F Susceptible <=0.5 , Intermediate >.5 , Resistant >1 Meropenem S <=0.25 F Susceptible <=1 , Intermediate >1 , Resistant >2 Ampicillin/Sulbact S <=2 F Susceptible <=8 , Intermediate >8 , Resistant >16 Piperacillin/Tazobac S <=4 F Susceptible <16 , Susceptible-Dose Dependent >=16 , Resistant >=32 Gentamicin S <=1 F Susceptible <=2 , Intermediate >2 , Resistant >=8 Tobramycin S <=1 F Susceptible <4 , Intermediate >=4 , Resistant >=8 Trimeth sulfameth S <=20 F Susceptible <=40 , Resistant >40 Ciprofloxacin S <=0.25 F Susceptible <0.5 , Intermediate >=.5 , Resistant >=1 Nitrofurantoin S <=16 F Susceptible <=32 , Intermediate >32 , Resistant >64 Abnormal [facility] Comment on above: Performed By: #### 6 ####[facility] LABVISHNU [id number] [address] STATES OF [facility] Skyler 11-02-2024 CNOV Office Visit (UCWSTR ) VALENTEKIMANI Rosette ([id number]) 2000 F Date Time Provider Department 11/02/24 3:45 PM MAICO SOSA [facility] During your visit today, we recorded the following information about you: Temperature Pulse Respiration Blood pressure 97.5 degrees 66/minute 16/minute 100/60 Weight 49 kg Maico Sosa APRN.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 11/02/2024 4:12 PM Signed Subjective HPI Nontoxic-appearing 24-year-old 7-week female presents urgent care chief complaint possible UTI. Duration of symptoms 4 days. Associated symptoms malodorous urine and dysuria. History of UTIs or this feels similar. OTC medications none. No vaginal discharge itching. No abdominal pain nausea vomiting flank pain. Past medical history prescription medications allergies reviewed. .Patient presents with: Urinary Frequency: burning and strong odor of urine x 4 days PAST MEDICAL HISTORY Diagnosis Date Anemia Depression with anxiety Endometriosis 11/27/2018 Minimal Kidney stones depression Recurrent UTI Has seen Dr Henry Right flank pain 11/12/2023 - Right flank pain 5/10 since this afternoon. Worse with position changes. - Denies fever, chills, new or worsened nausea, emesis - Had does of rocephin at [place] ED, transferred to [facility] ED for further evaluation - History of kidney stones, recurrent UTIs - Received Lithotripsy in 2022 - No vaginal bleeding, leakage of fluid, decreased FM - Vitals WNL, doptones present and WNL - Ab PAST SURGICAL HISTORY Procedure Laterality Date DANDC, DIAG AND/OR THERAPEUTIC LAPAROSCOPY DIAGNOSTIC 11/27/2018 Minimal endometriosis LITHOTRIPSY XTRCORP SHOCK WAVE 2022 ALLERGIES Keflex [Cephalexin] MEDICATIONS FLUoxetine (PROZAC) 20 mg capsule Take 1 capsule by mouth once daily. potassium chloride 20 mEq TbER Take 2 tablets by mouth two times a day. Take 2 tabs 1x acetaminophen (TYLENOL EXTRA STRENGTH) 500 mg tablet Take 1,000 mg by mouth every 8 hours as needed. URO-MP 118-10-40.8-36 mg as needed. (Patient not taking: Reported on 11/02/2024) FAMILY HISTORY Problem Relation Age of Onset other (lupus) Mother Hypertension Father Diabetes Father No Known Problems Brother No Known Problems Brother No Known Problems Brother No Known Problems Maternal Grandmother Heart Maternal Grandfather Hypertension Paternal Grandmother Dementia Paternal Grandmother Parkinson's Paternal Grandmother Heart Attack Paternal Grandfather other (febrile seizures) Son Social History Tobacco Use Smoking status: Former Current packs/day: 0.00 Types: Cigarettes Start date: 03/2018 Quit date: 03/2023 Years since quittin.6 Smokeless tobacco: Former Types: Chew Quit date: 03/2023 Vaping Use Vaping status: Former Quit date: 06/06/2022 Substances: Nicotine Substance Use Topics Alcohol use: Never Drug use: Never Review of Systems Constitutional: Negative for chills, fever and malaise/fatigue. Cardiovascular: Negative for chest pain. Gastrointestinal: Negative for abdominal pain, constipation, diarrhea, nausea and vomiting. Genitourinary: Positive for dysuria. Negative for flank pain, frequency, hematuria and urgency. Musculoskeletal: Negative for myalgias. Objective Physical Exam Vitals and nursing note reviewed. Constitutional: General: She is not in acute distress. Appearance: She is not diaphoretic. HENT: Head: Jaw: No trismus. Right Ear: Hearing normal. No decreased hearing noted. No drainage, swelling or tenderness. Tympanic membrane is not perforated, erythematous or bulging. Left Ear: Hearing normal. No decreased hearing noted. No drainage, swelling or tenderness. Tympanic membrane is not perforated, erythematous or bulging. Mouth/Throat: Pharynx: Uvula midline. No uvula swelling. Tonsils: No tonsillar abscesses. Cardiovascular: Rate and Rhythm: Normal rate and regular rhythm. Pulses: Normal pulses. Pulmonary: Effort: Pulmonary effort is normal. No respiratory distress. Breath sounds: Normal breath sounds. Chest: Chest wall: No tenderness. Abdominal: General: Bowel sounds are normal. There is no distension. Palpations: Abdomen is soft. Abdomen is not rigid. Tenderness: There is no abdominal tenderness. There is no right CVA tenderness, left CVA tenderness, guarding or rebound. Negative signs include Keane's sign and McBurney's sign. Musculoskeletal: General: No tenderness. Lymphadenopathy: Head: Right side of head: No submental, submandibular, tonsillar, preauricular, posterior auricular or occipital adenopathy. Left side of head: No submental, submandibular, tonsillar, preauricular, posterior auricular or occipital adenopathy. Cervical: Right cervical: No superficial or posterior cervical adenopathy. Left cervical: No superficial or posterior cervical adenopathy. Skin: General: (more content not included)... Normal [facility] UA DIP, URINE (POC)on 2024 BILIRUBIN UA (POCT) Negative Negative [facility] CLARITY UA (POCT) Cloudy [facility] COLOR UA (POCT) Yellow [facility] GLUCOSE UA (POCT) Negative Negative mg/dL [facility] Hemoglobin Ql (U) Negative Negative [facility] Interpretation and review of laboratory results Abnormal [facility] KETONE UA (POCT) Negative Negative mg/dL [facility] LEUKOCYTES UA (POCT) Negative Negative [facility] NITRITE UA (POCT) Positive Abnormal Negative [facility] PH UA (POCT) 6 4.5 - 8.0 [facility] Protein Ql (U) 30 mg/dL Abnormal Negative [facility] SPECIFIC GRAVITY UA (POCT) >=1.030 1.005 - 1.030 [facility] UROBILINOGEN UA (POCT) 0.2 Normal E.U./d L [facility] Location:[facility], [address] [place] [address], [place], [place], [id number] [place] [address] POINT OF CARE [facility] CNPAnne-Marie 10-20-2024 CNPN Telephone (OBGYWM) KIMANI OWENS ([id number]) 2000 F Date Time Provider Department 10/20/24 RUSTY LARA OBNOY During your visit today, we recorded the following information about you: Palmira Del Angel, JANNA 10/20/2024 11:26 AM Signed Patient is scheduled in December for a pelvic US for endometriosis and pelvic pain. She took a +UPT over the weekend. LMP 09/13 approximately 5w2d. OK to keep the US appointment? She would like to and eventually establish with a specialist. NOB scheduled. Palmira Del Angel, Rusty Navarro MD 10/20/2024 12:11 PM Signed No that ultrasound should be canceled as there is nothing that can be done during . Congratulations. She will have to establish after /recovery Palmira Del Angel RN 10/20/2024 1:04 PM Signed Attempted to notify patient. No answer and unable to leave a voicemail. Palmira Del Angel RN Allergies As of Date: 10/20/2024 Noted Allergy Reaction KEFLEX (CEPHALEXIN) 03/09/2024 14 - Other: See Comments Comments: thrombocytopenia Date Reviewed: 10/14/2024 Reviewed by: Vilma Bennett MA - Fully Assessed Prescriptions as of 10/20/2024 - FLUoxetine (PROZAC) 20 mg capsule Take 1 capsule by mouth once daily. - URO-MP 118-10-40.8-36 mg as needed. - potassium chloride 20 mEq TbER Take 2 tablets by mouth two times a day. Take 2 tabs 1x - acetaminophen (TYLENOL EXTRA STRENGTH) 500 mg tablet Take 1,000 mg by mouth every 8 hours as needed. Problem List As Of Date 10/20/2024 Noted Resolved Depression with anxiety [F41.8] Endometriosis [N80.9] 12/10/2018 Right flank pain [R10.9] 11/12/2023 11/21/2023 with care elsewhere in [facility]*11/21/2023 06/04/2024 History of recurrent UTI (urinary tract infecti*11/21/2023 History of miscarriage [Z87.59] 11/21/2023 Dysuria [R30.0] 11/21/2023 Circumvallate placenta, second trimester [O43.1*11/21/2023 06/04/2024 Encounter for supervision of high risk pregnanc*11/21/2023 06/04/2024 Benign gestational thrombocytopenia in second t*12/05/2023 06/04/2024 Recurrent UTI [N39.0] 12/18/2023 History of kidney stones [Z87.442] 12/18/2023 Heartburn during in third trimester [*02/19/2024 06/04/2024 Polyhydramnios in third trimester [O40.3XX0] 02/27/2024 06/04/2024 Missed menses [N92.6] 07/22/2024 Encounter Status:Closed by YARELIS NEW on 10/20/24 [facility] CNOVon 10-14-2024 CNOV Office Visit (OBGYWM ) KIMANI OWENS ([id number]) 2000 F Date Time Provider Department 10/14/24 9:00 AM RUSTY LARA OBGYWNancy During your visit today, we recorded the following information about you: Blood pressure Weight Last Period 110/70 50.3 kg 09/13/24 Rusty Lara MD 10/14/2024 10:09 AM Signed Subjective The patient is a 24-year-old female with a history of endometriosis presenting for recurrent UTIs, suspected chemical pregnancies, and contraception counseling. Endometriosis - Diagnosed with endometriosis, previously treated with surgery by Dr. Mensah at [facility] in [place] in 2019. - Reports worsening endometriosis symptoms, including severe pain during ovulation and heavy, painful menstrual bleeding lasting 5 days. - Experiences diarrhea during menstruation. - Suspects endometriosis may be contributing to recurrent UTIs. - Interested in exploring the possibility of another surgery for endometriosis management. Recurrent UTIs - Reports recurrent UTIs since 2022, with three episodes so far this year and suspects another current infection. - Under the care of urologist Shy Quiroga, and is taking probiotics for bladder and vaginal health. - Family history of similar issues, with her mother also experiencing recurrent UTIs. Suspected Chemical Pregnancies - Reports two suspected chemical pregnancies this year - Finds these experiences emotionally challenging. - Inquires about the potential link between endometriosis and chemical pregnancies. Contraception Counseling - Has not used any form of control since the of her 6-month-old child. - Desires to conceive again in the future. Menstrual Cycle - Reports regular menstrual cycles, approximately 25-26 days in length. - Experiences severe aura migraines during ovulation. - Denies dyspareunia. Head: (+) migraine with aura Gastrointestinal: (+) diarrhea Genitourinary: (+) pelvic pain during ovulation, (+) heavy menstrual bleeding, (+) dysmenorrhea, (-) dyspareunia Objective Blood pressure 110/70, weight 50.3 kg (111 lb), last menstrual period 09/13/2024, not currently . GENERAL: Well-appearing; pleasant; in no apparent distress NEURO: alert and oriented x3 EXTREMITIES: normal Labs: - Urinalysis: Positive for E. coli 04/28 Tests: - (2019) Laparoscopic Surgery: Minimal endometriosis involvement in the right uterosacral area. Assessment AND Plan 1. Pelvic pain in female (R10.2) 2. Endometriosis (N80.9) 3. 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 Mensah at [facility] in [place] in 2019; currently experiencing worsening symptoms. - Discussed potential impact of endometriosis on fertility, including scarring of the fallopian tubes and inflammation. - Ordered pelvic ultrasound to evaluate current extent of endometriosis. - Will order MRI following ultrasound results to assess for deep infiltrating endometriosis, including potential bowel involvement. - Referred to Minimally Invasive Gynecologic Surgery (MIGS) - Discussed hormonal management options; patient prefers to wait for specialist evaluation. - Patient desires future conception; discussed implications for treatment options. - Patient understands and agrees with the plan. 4. Recurrent urinary tract infection (N39.0) - History of recurrent UTIs since 2022, with three episodes this year; current symptoms suggestive of another UTI. - Previous cultures positive for E. coli, a common uropathogen. 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 - Advised continuation of current probiotic regimen for bladder and vaginal health. - Patient is under the care of urologist Shy Quiroga, who has initiated appropriate prophylactic measures including D-mannose. - Patient understands and agrees with the plan. Recording using ambient [employer] software for draft documentation of the visit was discussed with the patient/authorized brewery representative; all questions welcomed and answered. Patient/authorized brewery representative agreed to proceed Medical Decision Making: Problems: Moderate: 1+ chronic illnesses with change Data: Unique test result(s) reviewed: 2 Unique test(s) ordered: 2 Medical Decision Making Level: 4 - Moderate Rusty Zhang MD Allergies As of Date: 10/14/2024 Noted Allergy Reaction KEFLEX (CEPHALEXIN) 03/09/2024 14 - Other: See Comments Comments: thrombocytopenia Date Reviewed: 10/14/2024 Reviewed by: Vilma Bennett MA - Fully Assessed Reason for Visit: Discussion [813] Primary Visit Diagnosis:Pelvic pain in female [R10.2] Other Visit Diagnoses:Endometrios is [N80.9] Endometriosis of uterosacral ligament [N80.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 Normal [facility] 10-14-2024 CNPN Telephone (OBGYWM) KIMANI OWENS ([id number]) 2000 F Date Time Provider Department 10/14/24 RUSTY LARA During your visit today, we recorded the following information about you: Shital Moraes 10/14/2024 9:25 AM Signed Please contact patient to schedule. Trang Alamo RN 10/14/2024 10:02 AM Signed Referral received and will be worked on. Trang Alamo RN Allergies As of Date: 10/14/2024 Noted Allergy Reaction KEFLEX (CEPHALEXIN) 03/09/2024 14 - Other: See Comments Comments: thrombocytopenia Date Reviewed: 10/14/2024 Reviewed by: Vilma Bennett MA - Fully Assessed Prescriptions as of 10/14/2024 - FLUoxetine (PROZAC) 20 mg capsule Take 1 capsule by mouth once daily. - URO-MP 118-10-40.8-36 mg as needed. - potassium chloride 20 mEq TbER Take 2 tablets by mouth two times a day. Take 2 tabs 1x - acetaminophen (TYLENOL EXTRA STRENGTH) 500 mg tablet Take 1,000 mg by mouth every 8 hours as needed. Problem List As Of Date 10/14/2024 Noted Resolved Depression with anxiety [F41.8] Endometriosis [N80.9] 12/10/2018 Right flank pain [R10.9] 11/12/2023 11/21/[facility]11/21/2023 06/04/2024 History of recurrent UTI (urinary tract infecti*11/21/2023 History of miscarriage [Z87.59] 11/21/2023 Dysuria [R30.0] 11/21/2023 Circumvallate placenta, second trimester [O43.1*11/21/2023 06/04/2024 Encounter for supervision of high risk pregnanc*11/21/2023 06/04/2024 Benign gestational thrombocytopenia in second t*12/05/2023 06/04/2024 Recurrent UTI [N39.0] 12/18/2023 History of kidney stones [Z87.442] 12/18/2023 Heartburn during in third trimester [*02/19/2024 06/04/2024 Polyhydramnios in third trimester [O40.3XX0] 02/27/2024 06/04/2024 Missed menses [N92.6] 07/22/2024 Encounter Status:Closed by TRANG RICH on 10/14/24 Normal [facility] Urine Cultureon 10-02-2024 [facility] Urine Culture Urine Culture Escherichia coli Bartlett Count >100,000 Escherichia coli Escherichia coli Escherichia coli: REACTION Ampicillin Islt REGINALDO 8 S Ampicillin+Sulbac Islt REGINALDO 4 Cefepime Islt REGINALDO <=0.12 S cefTRIAXone Islt REGINALDO <=0.25 S Ciprofloxacin Islt REGINALDO <=0.06 S B-Lactamase Extended Susc Islt NEG Gentamicin Islt REGINALDO <=1 S levoFLOXacin Islt REGINALDO <=0.12 S Meropenem Islt REGINALDO <=0.25 S Nitrofurantoin Islt REGINALDO <=16 S Pip+Tazo Islt REGINALDO <=4 S TMP SMX Islt REGINALDO <=20 S Escherichia coli: REACTION Ampicillin Islt REGINALDO 8 S Ampicillin+Sulbac Islt REGINALDO <=2 Cefepime Islt REGINALDO <=0.12 S cefTRIAXone Islt REGINALDO <=0.25 S Ciprofloxacin Islt REGINALDO <=0.06 S B-Lactamase Extended Susc Islt NEG Gentamicin Islt REGINALDO <=1 S levoFLOXacin Islt REGINALDO <=0.12 S Meropenem Islt REGINALDO <=0.25 S Nitrofurantoin Islt REGINALDO <=16 S Pip+Tazo Islt REGINALDO <=4 S TMP SMX Islt REGINALDO <=[address] [facility] Comment on above: Performed By: #### M 100.678 #### [facility] [address] [place], [address] Bilirubin Test strip Ql (U)O rdered By: Ihsan Heart on 09-30-2024 Bilirubin Ql (U) Negative Negative [facility] Chest PA and Lateralon 09-30 Chest PA and Lateral [facility] Imaging Services [address] [place], [place] [id number] Chest PA and Lateral MR#: [id number] Acct: [id number] Name: KIMANI OWENS Rep #: [id number] : 2000 F 24 From: Macarena Salazar MD PCP: Care Physician,No Primary Status: REG ER Study: Chest PA and Lateral Date of Exam: 09/30/24 Exam# [id number] Ordering Dr: Ihsan Heart DO EXAM: XR Chest, 2 Views CLINICAL INDICATION: COUGH TECHNIQUE: Frontal and lateral views of the chest. COMPARISON: No relevant prior studies available. FINDINGS: LUNGS AND PLEURAL SPACES: Unremarkable. No consolidation. No pneumothorax. HEART: Unremarkable. No cardiomegaly. MEDIASTINUM: Unremarkable. Normal mediastinal contour. BONES/JOINTS: Unremarkable. No acute fracture. RAD/Chest PA and Lateral IMPRESSION: No acute cardiopulmonary process. Reading [facility] CC: Dr. Ihsan Heart, DO; No Primary Care Physician Kiln Stacker: Signed Normal [facility] Emergency Department Summary on 09-30-2024 Emergency Department Summary [facility] Medical Records Department [address] [place] [address] Emergency Department Summary 09/30/24 MR#: [id number] Acct: [id number] Name: KIMANI OWENS Rep #: [id number] : 2000 24 From: Ihsan Heart DO PCP: Care Physician,No Primary Status:DEP ER Location: ED HPI History of Present Illness Chief Complaint: General Illness Narrative Narrative: Chief complaint and HPI: 24-year-old female with recurrent UTI presents for evaluation of fever, body aches, and cough. Onset of symptoms 3 days ago. Associated symptom is also nasal congestion. Denies any headache, facial tenderness, ear pain, sore throat, shortness of breath, chest pain, abdominal pain, nausea, vomiting, diarrhea. States she has had some dysuria and smell to her urine. Concerned she could have a UTI. Normal menstrual cycles. Last had intercourse 2 days ago. No concern for STI. Does not believe herself to be . Review of systems: See HPI Medications: As listed on the chart Allergies: As listed on the chart PFSH: Per chart Vital signs: As listed on the chart. Reviewed. Physical exam: Gen: A O x3, NAD Head: Normocephalic, atraumatic Eyes: No sclera icterus, conjunctiva clear, PERRL, EOMI ENT: TMs clear BL, moist mucous membranes, posterior oropharynx unremarkable, uvula midline, tonsils not enlarged, no tonsillar exudates Neck: Trachea midline, No JVD, Full ROM, No meningismus CV: RRR, no murmurs, no peripheral edema Resp: Lungs CTA BL, no w/r/c, + dry cough GI: Abd soft, non-distended, non-tender, no r/r/g : No CVA tenderness Musc: Full ROM, no deformity Skin: Warm, dry, no rash Neuro: Alert, oriented, grossly intact, sensation intact Psych: Cooperative, appropriate mood and affect [facility] Medical History (Updated 09/30/24 @ 12:[address] Ihsan Heart, ) (spontaneous vaginal delivery) Polyhydramnios depression Depression Anxiety Circumvallate placenta Thrombocytopenia affecting Abdominal pain of right lower quadrant during , antepartum History of miscarriage, currently Supervision of high-risk Chromosome abnormality fetus, affect management of mother, antepartum Easy bruising Incomplete UTI in [place] Left renal stone Marijuana use Low iron Migraine headache Vapes nicotine containing substance History of stress test depression Fatigue Pilonidal cyst Anxiety and depression Home Medications ???Medication ???Instructions ???Recorded ???Last Taken ???Type multivitamin no.47-iron fum 27 1 cap PO DAILY 08/09/23 02/22/24 22:00 History mg-folate no.1 1 mg-dha 300 mg capsule (PNV-DHA) naproxen 500 mg tablet 500 mg PO Q8H PRN PRN Pain Score 1 05/26/23 Unknown Rx 1-10 #0 tabs amoxicillin 875 mg-potassium 1 tab PO BID 5 days #10 tabs 09/30 Unknown Rx clavulanate 125 mg tablet Allergy/AdvReac Type Severity Reaction Status Date / Time cephalexin (From Keflex) AdvReac Other Verified 09/30/24 10:15 Family History Father Arthritis Diabetes Hypertension High cholesterol Mother Arthritis Hypertension Lupus Aosen-Qoxilqvif-Gcuaf (WPW) syndrome Grandmother Thyroid cancer, Onset Age: 70 Maternal Surgical History Status post dilation and curettage Hx of wisdom tooth extraction History of laparoscopy Social History adopted: No household members: spouse and children housing: house number of children: 2 current occupational status: unemployed current occupation: [employer] current occupational exposures/hazards: No pets and animals: Yes (2) pets and animals: dog(s) history of recent travel: No sexually active: Yes Smoking Status: Former smoker quit date: 07/22/23 second hand exposure: No alcohol intake: never substance use type: does not use diet: lactose free well-balanced diet: daily or most days caffeine: No eating out: 1-3 times/week during the past year weight has: remained stable what type of physical activity do you participate in: none amish/bahai: None seatbelt use: always do you feel safe at home: Yes 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 history: Lloyd () EXAM Physical Exam Const Vital Signs: 09/30/24 10:12 09/30/24 10:13 09/30/24 12:12 Temperature 98.2 F Temperature Source Oral Pulse Rate 88 63 Respiratory Rate 18 Respiratory Effort Normal Non-Labored Respiratory Pattern Normal Blood Pressure 117/84 H 107/82 H Blood Pressure Mean 95 90 Pulse Ox 98 100 Oxygen Delivery Method Room Air 09/30/24 12:49 Temperature 98 F Tempera (more content not included)... Normal [facility] Influenza virus A and B and SARS-CoV-2 (COVID-19) and Respiratory syncytial virus RNAOrdered By: Ihsan Heart on 09-30-2024 SARS-CoV-2 (COVID-19) RNA ASHLIE+probe Ql (Unsp spec) [facility] Ketones Test strip Ql (U)Ord ered By: Ihsan Heart on 09-30-2024 Ketones Ql (U) 50 mg/dl High Negative [facility] M100.678on 09-30-2024 M100.678 Pending SARS-CoV-2 (COVID 19) Negative INFLUENZA A Negative INFLUENZA B Negative RSV PCR Negative Normal [facility] Comment on above: Performed By: #### M 100.678 #### [facility] [address] [place] [address], [id number] Microscopic analysis of urin e for red blood cells (RBC)Ordered By: Ihsan Heart on 09-30-2024 Microscopic analysis of urine for red blood cells (RBC) 0 SEEN /hpf 0-5 [facility] Mucus LM Ql (Urine sed)Order ed By: Ihsan Heart on 09-30-2024 Mucus Ql (Urine sed) 0 SEEN /hpf [facility] Nitrite Test strip Ql (U)Ord ered By: Ihsan Heart on 09-30-2024 Nitrite Ql (U) Positive High Negative [facility] ,Urineon 09-30-2024 Beta HCG ( test) Ql (U) Negative Normal [facility] Comment on above: Result Comment: Very dilute urine specimens, as indicated by a low specific gravity, may not contain brewery representative levels of hCG. If is still suspected, a first morning urine specimen should be collected 48 hours later and tested. Performed By: #### L 400.0001, L400.7600 #### [facility] [address] [place], [address] Protein Test strip Ql (U)Ord ered By: Ihsan Heart on 09-30-2024 Protein Ql (U) 100 mg/dl High Negative [facility] Squamous epithelial cells de tection in urine sediment by light microscopyOrdered By: Ihsan Heart on 09-30-2024 Epithelial cells.squamous LM Ql (Urine sed) 0 SEEN /hpf 5-10 [facility] Urinalysis, Completeon 09-30 Mucus Ql (Urine sed) 2+ /hpf Normal [facility] Comment on above: Order Comment: ROGE LUJAN TO SPECIFY Result Comment: AMENDED REPORT 09/30/243 MUCUS, URINE previously reported as: 0 SEEN /hpf Performed By: #### L 400.0001, L400.7600 #### [facility] [address] [place], [address] RBC 0-5 SEEN Normal 0-5 [facility] Comment on above: Order Comment: ROGE LUJAN TO SPECIFY Result Comment: AMENDED REPORT 09/30/24 1310 RBC-UA previously reported as: 0 SEEN /hpf Performed By: #### L 400.0001, L400.7600 #### [facility] [address] [place], [address] WBC 0-5 SEEN Normal 0-5 [facility] Comment on above: Order Comment: ROGE LUJAN TO SPECIFY Result Comment: AMENDED REPORT 09/30/24 1310 WBC previously reported as: 0 SEEN /hpf Performed By: #### L 400.0001, L400.7600 #### [facility] [address] [place], [place], [id number] BACTERIA 2+ /hpf Normal None Seen [facility] Comment on above: Order Comment: ROGE LUJAN TO SPECIFY Result Comment: AMENDED REPORT 09/30/24 1308 BACTERIA previously reported as: 0 SEEN /hpf Performed By: #### L 400.0001, L400.7600 #### [facility] [address] [place], [address] EPI,SQUAMOUS 0-5 SEEN Normal 5-10 [facility] Comment on above: Order Comment: ROGE ROSARIOOR TO SPECIFY Result Comment: AMENDED REPORT 09/30/24 1307 SQUAM EPI previously reported as: 0 SEEN /hpf Performed By: #### L 400.0001, L400.7600 #### [facility] [address] [place], [place], [id number] Urine clarityOrdered By: Lanodn Heart on 09-30-2024 Clarity (U) Clear Clear [facility] Urine color determinationOrd ered By: Ihsan Heart on 09-30-2024 Color (U) Yellow Yellow [facility] Urine glucose detectionOrder ed By: Ihsan Heart on 09-30-2024 Glucose Ql (U) Normal mg/dl Normal [facility] Urine leukocyte esterase det ection by dipstickOrdered By: Ihsan Heart on 09-30-2024 Leukocyte esterase Test strip Ql (U) 25 /ul High Negative [facility] Urine pHOrdered By: Ihsan Bates on 09-30-2024 pH (U) 6.0 [pH] 5.0 - 8.0 [facility] Urine testOrdered By: Ihsan Heart on 09-30-2024 HCG ( test) Ql (U) Negative [facility] Comment on above: Very dilute urine sp ecimens, as indicated by a low specificgravity, may not contain brewery representative levels of hCG. If is still suspected, a first morning urinespecimen should be collected 48 hours later and tested. Urine sediment bacteria coun t by microscopy (number/high power field)Ordered By: Ihsan Heart on 09-30-2024 Bacteria LM.HPF (Urine sed) [#/Area] 0 /[HPF] None Seen [facility] Urine specific gravity measu rementOrdered By: [facility] on 09-30-2024 Specific gravity (U) [Rel density] 1.020 1.002-1.030 [facility] Urine urobilinogen measureme ntOrdered By: Vivian Sly on 09-30-2024 Urobilinogen Ql (U) Normal mg/dl Normal [facility] White blood cell countOrdere d By: Ihsan Heart on 09-30-2024 White blood cell count 0 SEEN /hpf 0-5 [facility] CNOVon 07-22-2024 CNOV Office Visit (OBGYWM ) KIMANI OWENS ([id number]) 2000 F Date Time Provider Department 07/22/24 10:45 AM KAYA COLEMAN OBGYWM During your visit today, we recorded the following information about you: Blood pressure Weight Last Period 108/60 54.3 kg 06/11/24 Kaya Coleman APRN.CNM 07/22/2024 2:00 PM Signed Kimani Owens is a 24 year old female who presents for problem visit missed menses , 06/11/2024 reported + HPT on 06/29/2024. HPI: 03/25/24. Stated first period since delivery came last month. Cycle was heavy. After period started feeling like symptoms and decided to take a HPT which was a faint positive. Patient does not desire at this time. Using condoms for control. Here today for urine HCG test. OB History Gravida4 Para3 Term3 Preterm0 AB1 Living3 SAB1 IAB0 Ectopic0 Multiple0 Live Births3 Punch Operator History LMP: 06/21/2023 (Exact Date), Unknown Age at Menarche: Age at First : Age at Menopause: Punch Operator History Comments: Sexual Activity: Yes; No partner data on record Contraception: No contraception data on record PAST MEDICAL HISTORY Diagnosis Date Anemia Depression with anxiety Endometriosis 11/27/2018 Minimal Kidney stones depression Recurrent UTI Has seen Dr Henry Right flank pain 11/12/2023 - Right flank pain 5/10 since this afternoon. Worse with position changes. - Denies fever, chills, new or worsened nausea, emesis - Had does of rocephin at [place] ED, transferred to [facility] ED for further evaluation - History of kidney stones, recurrent UTIs - Received Lithotripsy in 2022 - No vaginal bleeding, leakage of fluid, decreased FM - Vitals WNL, doptones present and WNL - Ab PAST SURGICAL HISTORY Procedure Laterality Date DANDC, DIAG AND/OR THERAPEUTIC LAPAROSCOPY DIAGNOSTIC 11/27/2018 Minimal endometriosis LITHOTRIPSY XTRCORP SHOCK WAVE 2022 FAMILY HISTORY Problem Relation Age of Onset other (lupus) Mother Hypertension Father Diabetes Father No Known Problems Brother No Known Problems Brother No Known Problems Brother No Known Problems Maternal Grandmother Heart Maternal Grandfather Hypertension Paternal Grandmother Dementia Paternal Grandmother Parkinson's Paternal Grandmother Heart Attack Paternal Grandfather other (febrile seizures) Son Social History Tobacco Use Smoking status: Former Current packs/day: 0.00 Types: Cigarettes Start date: 03/2018 Quit date: 03/2023 Years since quittin.3 Smokeless tobacco: Former Types: Chew Quit date: 03/2023 Vaping Use Vaping status: Former Quit date: 06/06/2022 Substances: Nicotine Substance Use Topics Alcohol use: Never Drug use: Never Current Outpatient Medications Medication Sig potassium chloride 20 mEq TbER Take 2 tablets by mouth two times a day. Take 2 tabs 1x FLUoxetine (PROZAC) 10 mg capsule Take 1 capsule by mouth once daily for 14 days. FLUoxetine (PROZAC) 20 mg capsule Take 1 capsule by mouth once daily. Start after 14 days of 10 mg dose. vit no.129/iron/folic ( ONE DAILY ORAL) Take by mouth. (Patient not taking: Reported on 06/04/2024) acetaminophen (TYLENOL EXTRA STRENGTH) 500 mg tablet Take 1,000 mg by mouth every 8 hours as needed. No current facility-administered medications for this visit. Allergies As of Date: 07/22/2024 Allergen Noted Reaction KEFLEX [CEPHALEXIN] 03/09/2024 Other: See Comments Fully Assessed 06/04/2024 REVIEW OF SYSTEMS Abdomen: No bloating, early satiety, indigestion, or increased flatulence. No abdominal pain, nausea, vomiting, diarrhea, or constipation. Bladder: No dysuria, gross hematuria, urinary frequency, urinary urgency, or incontinence. Breast: No breast lumps, nipple d/c, overlying skin changes, redness or skin retraction. Expanded ROS: N/A Allergies and current medication updated:Yes SENSITIVE EXAM: Sensitive exam not performed. EXAM: BP 108/60 Wt 119 lb 12.8 oz (54.3kg) LMP 06/11/2024 GENERAL: pleasant, female in no apparent distress HEENT: Normocephalic and atraumatic NECK: Supple and full range of motion DERMATOLOGY: Normal and without lesions BREAST: deferred CHEST: Normal inspiratory effort ABDOMEN: Deferred PELVIC: deferred BIMANUAL: deferred NEURO: alert and oriented x3,exam grossly non-focal EXTREMITIES: normal Assessment AND Plan Missed menses Orders: UA DIP,URINE HCG (POC) - HCG - negative - Declines offer for contraception - Discussed irregularities in cycles are common after delivery - Support provided - RTO as needed DHIRAJ Mclean Courtney, APRN.CNM 07/22/2024 12:35 PM Written Orders: UA DIP,URINE HCG (POC) Referring Provider: SELF [200] Allergies As of Date: 07/22/2024 Noted Allergy Reaction KEFLEX (CEPHALEXIN) 03/09/2024 14 - Other: See Comments Comments: thrombo (more content not included)... Normal [facility] UA DIP,URINE HCG (POC)on Beta HCG ( test) Ql (U) Negative Negative [facility] Comment on above: Location:[facility], [address], [place], [address] Clinical Operations Consultant (POCT) [facility] Location:[facility], [address], [place], [address] [facility] POINT OF CARE [facility] [place] 07-09-2024 CNPN Telephone (PSYWST) KIMANI OWENS ([id number]) 2000 F Date Time Provider Department 07/09/24 DAFNE BRADLEY PSYWST During your visit today, we recorded the following information about you: Kasey Nunes LPN 07/09/2024 9:55 AM Signed Call placed, message left reminding patient of VV with provider today. Kasey Nunes LPN Allergies As of Date: 07/09/2024 Noted Allergy Reaction KEFLEX (CEPHALEXIN) 03/09/2024 14 - Other: See Comments Comments: thrombocytopenia Date Reviewed: 06/04/2024 Reviewed by: Palmira Palmer MD - Fully Assessed Prescriptions as of 07/09/2024 - potassium chloride 20 mEq TbER Take 2 tablets by mouth two times a day. Take 2 tabs 1x - FLUoxetine (PROZAC) 10 mg capsule Take 1 capsule by mouth once daily for 14 days. - FLUoxetine (PROZAC) 20 mg capsule Take 1 capsule by mouth once daily. Start after 14 days of 10 mg dose. - vit no.129/iron/folic ( ONE DAILY ORAL) Take by mouth. - acetaminophen (TYLENOL EXTRA STRENGTH) 500 mg tablet Take 1,000 mg by mouth every 8 hours as needed. Problem List As Of Date 07/09/2024 Noted Resolved Depression with anxiety [F41.8] Endometriosis [N80.9] 12/10/2018 Right flank pain [R10.9] 11/12/2023 11/21/2023 with care elsewhere in [facility]*11/21/2023 06/04/2024 History of recurrent UTI (urinary tract infecti*11/21/2023 History of miscarriage [Z87.59] 11/21/2023 Dysuria [R30.0] 11/21/2023 Circumvallate placenta, second trimester [O43.1*11/21/2023 06/04/2024 Encounter for supervision of high risk pregnanc*11/21/2023 06/04/2024 Benign gestational thrombocytopenia in second t*12/05/2023 06/04/2024 Recurrent UTI [N39.0] 12/18/2023 History of kidney stones [Z87.442] 12/18/2023 Heartburn during in third trimester [*02/19/2024 06/04/2024 Polyhydramnios in third trimester [O40.3XX0] 02/27/2024 06/04/2024 Encounter Status:Closed by KASEY NUNES on 07/09/24 [facility] Tele[facility] (OBGYWM) KIMANI OWENS ([id number]) 2000 F Date Time Provider Department 07/03/24 JAN CANTU During your visit today, we recorded the following information about you: Bel Quintana LPN 07/03/2024 8:54 AM Signed Patient called stating that she had a positive test on Saturday but then had a couple negative tests. Patient repeated test this morning and had another positive home Patient asking if she can have blood test drawn? Lmp was 06/11/2024 Jan Cantu MD 07/03/2024 9:58 AM Signed If LMP was 06/11/24 this is very early to be doing a test. Usually advised to wait until after missed menses. Can offer her a visit (can be virtual) to discuss further thanks Lakesha Lentz RN 07/03/2024 10:39 AM Signed Patient notified and voiced understanding. Patient states she will wait and retake test. Denies wanting appointment at this time. Lakesha Fara, RN Allergies As of Date: 07/03/2024 Noted Allergy Reaction KEFLEX (CEPHALEXIN) 03/09/2024 14 - Other: See Comments Comments: thrombocytopenia Date Reviewed: 06/04/2024 Reviewed by: Palmira Palmer MD - Fully Assessed Reason for Visit: [587] Prescriptions as of 07/03/2024 - potassium chloride 20 mEq TbER Take 2 tablets by mouth two times a day. Take 2 tabs 1x - FLUoxetine (PROZAC) 10 mg capsule Take 1 capsule by mouth once daily for 14 days. - FLUoxetine (PROZAC) 20 mg capsule Take 1 capsule by mouth once daily. Start after 14 days of 10 mg dose. - vit no.129/iron/folic ( ONE DAILY ORAL) Take by mouth. - acetaminophen (TYLENOL EXTRA STRENGTH) 500 mg tablet Take 1,000 mg by mouth every 8 hours as needed. Problem List As Of Date 07/03/2024 Noted Resolved Depression with anxiety [F41.8] Endometriosis [N80.9] 12/10/2018 Right flank pain [R10.9] 11/12/2023 11/21/[facility]11/21/2023 06/04/2024 History of recurrent UTI (urinary tract infecti*11/21/2023 History of miscarriage [Z87.59] 11/21/2023 Dysuria [R30.0] 11/21/2023 Circumvallate placenta, second trimester [O43.1*11/21/2023 06/04/2024 Encounter for supervision of high risk pregnanc*11/21/2023 06/04/2024 Benign gestational thrombocytopenia in second t*12/05/2023 06/04/2024 Recurrent UTI [N39.0] 12/18/2023 History of kidney stones [Z87.442] 12/18/2023 Heartburn during in third trimester [*02/19/2024 06/04/2024 Polyhydramnios in third trimester [O40.3XX0] 02/27/2024 06/04/2024 Encounter Status:Closed by LAKESHA LENTZ on 07/03/24 [facility] [place] 06-30-2024 [facility] KIMANI OWENS ([id number]) 2000 F Date Time Provider Department 06/30/24 JAMES HARGROVE During your visit today, we recorded the following information about you: Alissa Pereyra RN 06/30/2024 9:11 AM Signed LMP 06/11/24. This is first period since giving in March 2024. Had IUD prior to this, so unsure of what normal cycles are like. Pt not , but states she is leaking breast milk. Pt calling she took test and some have had faint lines. After period, had unprotected sex after finished bleeding. Now having some lower back pain and having cravings. Advised Pt that it is too early to tell since her LMP was 06/11/24 and her periods may fluctuate post delivery. Advised Pt to continue to monitor and to notify the office if she begins with severe abdominal pain/heavy bleeding. Advised Pt that we typically see Pt's in office around 7-8 weeks . Pt states she will continue to monitor at this time. However, Pt taking medication post intercourse prescribed by Dr. Henry Uro-MP asking if this can cause false tests? Please advise. JANNA Merrill Karmon, MD 06/30/2024 9:36 AM Signed Antibiotics would not give a false positive test. In general tests should not be used until 4 weeks after LMP. MD Farzad Solomon Tara, RN 06/30/2024 10:05 AM Signed [employer] message sent to Pt. Alissa Pereyra RN Allergies As of Date: 06/30/2024 Noted Allergy Reaction KEFLEX (CEPHALEXIN) 03/09/2024 14 - Other: See Comments Comments: thrombocytopenia Date Reviewed: 06/04/2024 Reviewed by: Palmira Palmer MD - Fully Assessed Reason for Visit: Faint + tests [Other] Prescriptions as of 06/30/2024 - potassium chloride 20 mEq TbER Take 2 tablets by mouth two times a day. Take 2 tabs 1x - FLUoxetine (PROZAC) 10 mg capsule Take 1 capsule by mouth once daily for 14 days. - FLUoxetine (PROZAC) 20 mg capsule Take 1 capsule by mouth once daily. Start after 14 days of 10 mg dose. - vit no.129/iron/folic ( ONE DAILY ORAL) Take by mouth. - acetaminophen (TYLENOL EXTRA STRENGTH) 500 mg tablet Take 1,000 mg by mouth every 8 hours as needed. Problem List As Of Date 06/30/2024 Noted Resolved Depression with anxiety [F41.8] Endometriosis [N80.9] 12/10/2018 Right flank pain [R10.9] 11/12/2023 11/21/2023 [facility]11/21/2023 06/04/2024 History of recurrent UTI (urinary tract infecti*11/21/2023 History of miscarriage [Z87.59] 11/21/2023 Dysuria [R30.0] 11/21/2023 Circumvallate placenta, second trimester [O43.1*11/21/2023 06/04/2024 Encounter for supervision of high risk pregnanc*11/21/2023 06/04/2024 Benign gestational thrombocytopenia in second t*12/05/2023 06/04/2024 Recurrent UTI [N39.0] 12/18/2023 History of kidney stones [Z87.442] 12/18/2023 Heartburn during in third trimester [*02/19/2024 06/04/2024 Polyhydramnios in third trimester [O40.3XX0] 02/27/2024 06/04/2024 Encounter Status:Closed by ALISSA PEREYRA on 06/30/24 Normal [facility] B-HCG SerPl-aCncon 5 HCG.beta subunit Qn m[IU]/mL Normal <5.0 [facility] Comment on above: Order Comment: Speci men Type: BLOOD SPECIMENOrdering Facility: [facility] Address: [address] [place] [address] [place] [address] Result Comment: Nega tive Performed By: #### 2 1198-7 ####[facility] LABCLIA [id number] [facility] [id number] VIL[place] [id number] [place] CBC W Auto Differential pane l (Bld)on 06-04-2024 Basophils (Bld) [#/Vol] 0.08 10*3/uL Normal <0.11 [facility] Comment on above: Order Comment: Speci men Type: BLOOD SPECIMENOrdering Facility: [facility] Address: [address] [place] [address] Performed By: #### 5 7021-8 ####[facility] [id number] [place] [address] [place] Basophils/100 WBC (Bld) 1.2 % Normal C [facility] Comment on above: Order Comment: Speci men Type: BLOOD SPECIMENOrdering Facility: [facility] Address: [address] [place] [address] Performed By: #### 5 7021-8 ####[facility] HOSPITALLIA [id number] [place] [address] [place] Differential cell count method Nom (Bld) Auto Normal [facility] Comment on above: Order Comment: Speci men Type: BLOOD SPECIMENOrdering Facility: [facility] Address: [address] [place] [address] Performed By: #### 5 7021-8 ####[facility] [id number] [place] [address] [place] Eosinophils (Bld) [#/Vol] 0.67 10*3/uL High <0.46 [facility] Comment on above: Order Comment: Speci men Type: BLOOD SPECIMENOrdering Facility: [facility] Address: [address] [place] [address] Performed By: #### 5 7021-8 ####[facility] [id number] [place] [address] [place] Eosinophils/100 WBC (Bld) 10.1 % Normal [facility] Comment on above: Order Comment: Speci men Type: BLOOD SPECIMENOrdering Facility: [facility] Address: [address] [place] [address] Performed By: #### 5 7021-8 ####[facility] [id number] [place] [address] [place] Erythrocyte distribution width (RBC) [Ratio] 17.2 % High 11.5-15.0 [facility] Comment on above: Order Comment: Speci men Type: BLOOD SPECIMENOrdering Facility: [facility] Address: [address] [place] [address] Performed By: #### 5 7021-8 ####[facility] [id number] [place] [address] [place] Hematocrit (Bld) [Volume fraction] 41.9 % Normal 36.0-46.0 [facility] Comment on above: Order Comment: Speci men Type: BLOOD SPECIMENOrdering Facility: [facility] Address: [address] [place] [address] Performed By: #### 5 7021-8 ####[facility] [id number] [place] [address] [place] Hemoglobin (Bld) [Mass/Vol] 13.3 g/dL Normal 11.5-15.5 [facility] Comment on above: Order Comment: Speci men Type: BLOOD SPECIMENOrdering Facility: [facility] Address: [address] [place] [address] Performed By: #### 5 7021-8 ####[facility] [id number] [place] [address] [place] Immature granulocytes (Bld) [#/Vol] 10*3/uL Normal <0.10 [facility] Comment on above: Order Comment: Speci men Type: BLOOD SPECIMENOrdering Facility: [facility] Address: [address] [place] [address] Performed By: #### 5 7021-8 ####[facility]ITALTOM [id number] [place] [address] [place] Immature granulocytes/100 WBC (Bld) 0.2 % Normal [facility] Comment on above: Order Comment: Speci men Type: BLOOD SPECIMENOrdering Facility: [facility] Address: [address] [place] [address] Performed By: #### 5 7021-8 ####[facility] [id number] [place] [address] [place] Lymphocytes (Bld) [#/Vol] 1.89 10*3/uL Normal 1.00-4.00 [facility] Comment on above: Order Comment: Speci men Type: BLOOD SPECIMENOrdering Facility: [facility] Address: [address] [place] [address] Performed By: #### 5 7021-8 ####[facility] [id number] [place] [address] [place] [facility] Lymphocytes/100 WBC (Bld) 28.5 % Normal [facility] Comment on above: Order Comment: Speci men Type: BLOOD SPECIMENOrdering Facility: [facility] Address: [address] [place] [address] Performed By: #### 5 7021-8 ####[facility]ITALNCLIA [id number] [place] [address] [place] MCH (RBC) [Entitic mass] 24.5 pg Low 26.0-34.0 [facility] Comment on above: Order Comment: Speci men Type: BLOOD SPECIMENOrdering Facility: [facility] Address: [address] [place] [address] Performed By: #### 5 7021-8 ####[facility]ITALMARILEEA [id number] [place] [address] [place] MCHC (RBC) [Mass/Vol] 31.7 g/dL Normal 30.5-36.[address] [facility] Comment on above: Order Comment: Speci men Type: BLOOD SPECIMENOrdering Facility: [facility] Address: [address] [place] [address] Performed By: #### 5 7021-8 ####[facility] [id number] [place] [address] [place] MCV (RBC) [Entitic vol] 77.3 fL Low 80.0-100.0 C [facility] Comment on above: Order Comment: Speci men Type: BLOOD SPECIMENOrdering Facility: [facility] Address: [address] [place] [address] Performed By: #### 5 7021-8 ####[facility] [id number] [place] [address] [place] Monocytes (Bld) [#/Vol] 0.52 10*3/uL Normal <0.87 [facility] Comment on above: Order Comment: Speci men Type: BLOOD SPECIMENOrdering Facility: [facility] Address: [address] [place] [address] Performed By: #### 5 7021-8 ####[facility] [id number] [place] [address] [place] Monocytes/100 WBC (Bld) 7.8 % Normal C [facility] Comment on above: Order Comment: Speci men Type: BLOOD SPECIMENOrdering Facility: [facility] Address: [address] [place] [address] Performed By: #### 5 7021-8 ####[facility] [id number] [place] [address] [place] Neutrophils (Bld) [#/Vol] 3.47 10*3/uL Normal 1.45-7.50 [facility] Comment on above: Order Comment: Speci men Type: BLOOD SPECIMENOrdering Facility: [facility] Address: [address] [place] [address] Performed By: #### 5 7021-8 ####[facility] HOSPITALWOHLIA [id number] [place] [address] [place] Neutrophils/100 WBC (Bld) 52.2 % Normal [facility] Comment on above: Order Comment: Speci men Type: BLOOD SPECIMENOrdering Facility: [facility] Address: [address] [place] [address] Performed By: #### 5 7021-8 ####[facility] [id number] [place] [address] [place] Nucleated RBC (Bld) [#/Vol] 10*3/uL Normal <0.01 [facility] Comment on above: Order Comment: Speci men Type: BLOOD SPECIMENOrdering Facility: [facility] Address: [address] [place] [address] Performed By: #### 5 7021-8 ####[facility] [id number] [place] [address] [place] Nucleated RBC/100 WBC (Bld) [Ratio] 0.0 /100 WBC Normal [facility] Comment on above: Order Comment: Speci men Type: BLOOD SPECIMENOrdering Facility: [facility] Address: [address] [place] [address] Performed By: #### 5 7021-8 ####[facility] [id number] [place] [address] [place] Platelet mean volume (Bld) [Entitic vol] 11.2 fL Normal 9.0-12.7 [facility] Comment on above: Order Comment: Speci men Type: BLOOD SPECIMENOrdering Facility: [facility] Address: [address] [place] [address] Performed By: #### 5 7021-8 ####[facility] MADDYNCGURWINDERA [id number] [place] [address] [place] Platelets (Bld) [#/Vol] 188 10*3/uL Normal 150-400 [facility] Comment on above: Order Comment: Speci men Type: BLOOD SPECIMENOrdering Facility: [facility] Address: [address] [place] [address] Performed By: #### 5 7021-8 ####[facility]ITALNCLIA [id number] [place] [address] [place] RBC (Bld) [#/Vol] 5.42 10*6/uL High 3.90-5.20 [facility] Comment on above: Order Comment: Speci men Type: BLOOD SPECIMENOrdering Facility: [facility] Address: [address] [place] [address] Performed By: #### 5 7021-8 ####[facility] HOSPITALNCA [id number] [place] [address] [place] WBC (Bld) [#/Vol] 6.64 10*3/uL Normal 3.70-11.00 [facility] Comment on above: Order Comment: Speci men Type: BLOOD SPECIMENOrdering Facility: [facility] Address: [address] [place] [address] Performed By: #### 5 7021-8 ####[facility]ITALNCLIA [id number] [place] [address] [place] Comprehensive metabolic 2000 panelon 06-04-2024 Albumin [Mass/Vol] 4.5 g/dL Normal 3.9-4.9 [facility] Comment on above: Order Comment: Speci men Type: BLOOD SPECIMENOrdering Facility: [facility] Address: [address] [place] [address] Performed By: #### 2 4323-8 ####[facility] ITZ MILLTOWNCLIA [id number] [place] [address] [place] ALP [Catalytic activity/Vol] 85 U/L Normal 34-123 [facility] Comment on above: Order Comment: Speci men Type: BLOOD SPECIMENOrdering Facility: [facility] Address: [address] [place] [address] Performed By: #### 2 4323-8 ####[facility] MILLTOWNCLIA [id number] [place] [address] [place] ALT [Catalytic activity/Vol] 28 U/L Normal 7-38 [facility] Comment on above: Order Comment: Speci men Type: BLOOD SPECIMENOrdering Facility: [facility] Address: [address] [place] [address] Performed By: #### 2 4323-8 ####[facility] HOSPITALWNCLIA [id number] [place] [address] [place] Anion gap [Moles/Vol] 9 mmol/L Normal 8-[address] [facility] Comment on above: Order Comment: Speci men Type: BLOOD SPECIMENOrdering Facility: [facility] Address: [address] [place] [address] Performed By: #### 2 4323-8 ####[facility] MILLTOWNCLIA [id number] [place] [address] [place] AST [Catalytic activity/Vol] 24 U/L Normal 13-35 [facility] Comment on above: Order Comment: Speci men Type: BLOOD SPECIMENOrdering Facility: [facility] Address: [address] [place] [address] Performed By: #### 2 4323-8 ####[facility] MILLTOWNCLIA [id number] [place] [address] [place] Bilirubin [Mass/Vol] 0.3 mg/dL Normal 0.2-1.3 [facility] Comment on above: Order Comment: Speci men Type: BLOOD SPECIMENOrdering Facility: [facility] Address: [address] [place] [address] Performed By: #### 2 4323-8 ####[facility] ITZ MILLTOWNCLIA [id number] [place] [address] [place] Calcium [Mass/Vol] 9.5 mg/dL Normal 8.5-10.2 [facility] Comment on above: Order Comment: Speci men Type: BLOOD SPECIMENOrdering Facility: [facility] Address: [address] [place] [address] Performed By: #### 2 4323-8 ####[facility] HOS[facility]ITALWOHLIA [id number] [place] [address] [place] Chloride [Moles/Vol] 102 mmol/L Normal 98-107 [facility] Comment on above: Order Comment: Speci men Type: BLOOD SPECIMENOrdering Facility: [facility] Address: [address] [place] [address] Performed By: #### 2 4323-8 ####[facility]ITALNCLIA [id number] [place] [address] [place] CO2 [Moles/Vol] 26 mmol/L Normal 22-30 [facility] Comment on above: Order Comment: Speci men Type: BLOOD SPECIMENOrdering Facility: [facility] Address: [address] [place], [place] [address] Performed By: #### 2 4323-8 ####[facility] MILLPLEASANT HILLNCLIA [id number] [place] [address] [place] Creatinine [Mass/Vol] 0.62 mg/dL Normal 0.58-0.[address] [facility] Comment on above: Order Comment: Speci men Type: BLOOD SPECIMENOrdering Facility: [facility] Address: [address] [place] [address] Performed By: #### 2 4323-8 ####[facility] [id number] [place] [address] [place] Creatinine and Glomerular filtration rate.predicted panel (S/P/Bld) 127 mL/min/1.73m??? Normal >=60 [facility] Comment on above: Order Comment: Speci men Type: BLOOD SPECIMENOrdering Facility: [facility] Address: [address] [place] [address] Result Comment: Kenyatta mated Glomerular Filtration Rate (eGFR) is calculated using the 2020 CKD-EPI creatinine equation. This equation utilizes serum creatinine, sex, and age as parameters. The creatinine assay has traceable calibration to isotope dilution-mass spectrometry. Refer to KDIGO guidelines for clinical interpretation. In patients with unstable renal function, e.g. those with acute kidney injury, the eGFR may not accurately reflect actual GFR. Performed By: #### 2 4323-8 ####[facility] [id number] [place] [place] [address] [place] Glucose [Mass/Vol] 88 mg/dL Normal 74-99 [facility] Comment on above: Order Comment: Alphonse sharon Type: BLOOD SPECIMENOrdering Facility: [facility] Address: [address] [place] [address] Result Comment: The [place] Diabetes Association (ADA) provides guidance for cutoff values for fasting glucose and random glucose. The ADA defines fasting as no caloric intake for at least 8 hours. Fasting plasma glucose results between 100 to 125 mg/dL indicate increased risk for diabetes (prediabetes). Fasting plasma glucose results greater than or equal to 126 mg/dL meet the criteria for diagnosis of diabetes. In the absence of unequivocal hyperglycemia, results should be confirmed by repeat testing. In a patient with classic symptoms of hyperglycemia or hyperglycemic crisis, random plasma glucose results greater than or equal to 200 mg/dL meet the criteria for diagnosis of diabetes. Reference: Standards of Medical Care in Diabetes 2016, [place] Diabetes Association. Diabetes Care. 2016.39(Suppl 1). Performed By: #### 2 4323-8 ####[facility] MILLTOWNCLIA [id number] [place] [address] [place] Potassium [Moles/Vol] 3.3 mmol/L Low 3.7-5.[address] [facility] Comment on above: Order Comment: Speci men Type: BLOOD SPECIMENOrdering Facility: [facility] Address: [address] [place] [address] Performed By: #### 2 4323-8 ####[facility] MILLTOWNCLIA [id number] [place] [address] [place] Protein [Mass/Vol] 6.8 g/dL Normal 6.3-8.0 [facility] Comment on above: Order Comment: Speci men Type: BLOOD SPECIMENOrdering Facility: [facility] Address: [address] [place] [address] Performed By: #### 2 4323-8 ####[facility]ITALMARILEELIA [id number] [place] [address] [place] Sodium [Moles/Vol] 137 mmol/L Normal 136-144 [facility] Comment on above: Order Comment: Speci men Type: BLOOD SPECIMENOrdering Facility: [facility] Address: [address] [place] [address] Performed By: #### 2 4323-8 ####[facility] MILLTOWNCLIA [id number] [place] [address] [place] Urea nitrogen [Mass/Vol] 9 mg/dL Normal 7-21 [facility] Comment on above: Order Comment: Speci men Type: BLOOD SPECIMENOrdering Facility: [facility] Address: [address] [place], [place] [address] Performed By: #### 2 4323-8 ####[facility]ITALNCLIA [id number] [address] [place] PAP TESTon 06-04-2024 ADEQUACY Satisfactory for interpretation. Normal [facility] Comment on above: Order Comment: Speci men Type: FLUID SPECIMENOrdering Facility: [facility] Address: [address] [place] [address] Performed By: #### L [id number] ####[facility] LABORATORYCLIA [id number] [place] [id number] [place] CASE REPORT Normal [facility] Comment on above: Order Comment: Speci men Type: FLUID SPECIMENOrdering Facility: [facility] Address: [address] [place] [address] Result Comment: Gyne cologic Cytology Report Case: [id number] Authorizing Provider: Palmira Palmer MD Collected: 06/04/2024 01:31 PM Ordering Location: OB/Gynecology Received: 06/04/2024 02:56 PM First Screen: Sabrina, Julia, CT, ASCP Specimen: Pap Test, ThinPrep, Cervix Performed By: #### L [id number] ####[facility]ORATORYCLIA [id number] [place] [address] [place] CLINICAL HISTORY, CYTOLOGY, BLUING OVEN TENDER Routine Exam Normal [facility] Comment on above: Order Comment: Speci men Type: FLUID SPECIMENOrdering Facility: [facility] Address: [address] [place] [address] Result Comment: Post (Indicate Weeks) No Menses, Other (Specify) 6 weeks Performed By: #### L [id number] ####[facility] LABORATORYCLIA [id number] [place] [id number] [place] CYTOLOGY PAP OTHER INTERPRETATION Fungal organisms morphologically consistent with Nemo species. Normal [facility] Comment on above: Order Comment: Speci men Type: FLUID SPECIMENOrdering Facility: [facility] Address: [address] [place] [address] Performed By: #### L [id number] ####[facility] LABORATORYCLIA [id number] [place] [id number] [place] FINAL PERFORMING LAB Normal [facility] Comment on above: Order Comment: Speci men Type: FLUID SPECIMENOrdering Facility: [facility] Address: [address] [place] [address] Result Comment: Tech nical component, a/c technician screening performed at [facility], [address] [place] [address] CLIA# [id number] Diagnostic interpretation performed at [facility], [address] [place] [address] CLIA# [id number] Pediatrician Active Practice: Macarena Devries M.D. Performed By: #### L [id number] ####[facility] LABORATORYCLIA [id number] [place] [address] [place] INTERPRETATION, CYTOLOGY, BLUING OVEN TENDER Normal [facility] Comment on above: Order Comment: Speci men Type: FLUID SPECIMENOrdering Facility: [facility] Address: [address] [place] [address] Result Comment: Nega tive for intraepithelial lesion or malignancy. Performed By: #### L [id number] ####[facility]ORATORYCLIA [id number] [place] [id number] [place] PAP DISCLAIMER COMMENT The Pap Smear is a screening test for cervical cancer. False negative results occur with all screening tests, emphasizing the need for rescreening at recommended intervals, and clinical correlation. Normal [facility] Comment on above: Order Comment: Speci men Type: FLUID SPECIMENOrdering Facility: [facility] Address: [address] [place] [address] Performed By: #### L [id number] ####[facility] LABORATORYCLIA [id number] [place] [id number] [place] PAP GROUND INTELLIGENCE OFFICER COMMENT This specimen has been analyzed by the ThinPrep Imaging System, an automated imaging and review system, which assists the laboratory in evaluating cells on ThinPrep Pap tests. Following automated imaging, selected cho from every slide are reviewed by a a/c technician. Normal [facility] Comment on above: Order Comment: Speci men Type: FLUID SPECIMENOrdering Facility: [facility] Address: [address] [place] [address] Performed By: #### L [id number] ####[facility] LABORATORYCLIA [id number] [place] [address] [place] TSH SerPl-aCncon 06-04-2024 TSH Qn 0.395 m[IU]/L Normal 0.270-4.200 [facility] Comment on above: Order Comment: Speci men Type: BLOOD SPECIMENOrdering Facility: [facility] Address: [address] [place] [address] Result Comment: If t he patient is , TSH reference range varies by gestational period: First Trimester (weeks 9-12): 0.180-2.990 mIU/L Second Trimester: 0.110-3.980 mIU/L Third Trimester: 0.480-4.710 mIU/L Ethan Dinero et al. A Practical Approach for the Verifications and Determination of Site- and Trimester-Specific Reference Intervals for Thyroid Function tests in . Thyroid, 2019:29:3:412-420. Master Cuello, et al. 2017 Guidelines of the [place] Thyroid Association for the Diagnosis and Management of Thyroid Disease during and the . Thyroid, 2017:27:3:315-389. Performed By: #### 3 016-3 ####[facility] LABCLIA [id number] [place] [address] [place] Bacteria Ur Culton 4 Bacteria identified Cx Nom (U) ORGANISM ID: 2 >=100,000 CFU/ml Escherichia coli ORGANISM ID: 2 (ESCHERICHIA COLI) ------ ANTIBIOTIC INTERPRETATION REGINALDO STATUS REFERENCE RANGE ------ Ampicillin I 16 F Susceptible <=8 , Intermediate >8 , Resistant >16 Cefazolin S <=4 F Susceptible 0-16 , Intermediate <0 or >16 , Resistant >16 For uncomplicated urinary tract infections, cefazolin results can be used to predict susceptibility or resistance to cephalexin. Ceftriaxone S <=1 F Susceptible <=1 , Intermediate >1 , Resistant >=4 Cefepime S <=1 F Susceptible <=2 , Susceptible-Dose Dependent >2 , Resistant >=16 Ertapenem S <=0.5 F Susceptible <=0.5 , Intermediate >.5 , Resistant >1 Meropenem S <=0.25 F Susceptible <=1 , Intermediate >1 , Resistant >2 Ampicillin/Sulbact S 4 F Susceptible <=8 , Intermediate >8 , Resistant >16 Piperacillin/Tazobac S <=4 F Susceptible <16 , Susceptible-Dose Dependent >=16 , Resistant >=32 Gentamicin S <=1 F Susceptible <=2 , Intermediate >2 , Resistant >=8 Tobramycin S <=1 F Susceptible <4 , Intermediate >=4 , Resistant >=8 Trimeth sulfameth S <=20 F Susceptible <=40 , Resistant >40 Ciprofloxacin S <=0.25 F Susceptible <0.5 , Intermediate >=.5 , Resistant >=1 Nitrofurantoin S <=16 F Susceptible <=32 , Intermediate >32 , Resistant >64 Abnormal [facility] Comment on above: Performed By: #### 6 30-4 ####[facility] LABCLIA [id number] [address] [place] Skyler 04-30-2024 CNOV Office Visit (OBGYWM ) KIMANI OWENS ([id number]) 2000 F Date Time Provider Department 04/30/24 3:20 PM KAYA COLEMAN OBGYWNancy During your visit today, we recorded the following information about you: Blood pressure Weight 106/60 62.1 kg Kaya Coleman APRN.CNM 04/30/2024 3:51 PM Signed Kimani Owens is a 24 year old female who presents for problem visit of UTI. HPI: Patient reports for the past 2 days having symptoms of burning with urination and strong odor. She attempted to see Urologist but out of office and unable to get appointment. OB History T3 L3 SAB1 IAB0 Ectopic0 Multiple0 Live Births3 REVIEW OF SYSTEMS Abdomen: No bloating, early satiety, indigestion, or increased flatulence. No abdominal pain, nausea, vomiting, diarrhea, or constipation. Bladder: +Dysuria, urgency, odor. Breast: No breast lumps, nipple d/c, overlying skin changes, redness or skin retraction. Expanded ROS: N/A Allergies and current medication updated:Yes SENSITIVE EXAM: Sensitive exam not performed. EXAM: BP 106/60 Wt 137 lb (62.1kg) LMP 06/21/2023 GENERAL: pleasant, female in no apparent distress NEURO: alert and oriented x3,exam grossly non-focal EXTREMITIES: normal ASSESSMENT AND PLAN: Assessment AND Plan History of recurrent UTI (urinary tract infection) Orders: UA DIP,URINE HCG (POC) Dysuria Orders: UA DIP,URINE HCG (POC) URINE CULTURE - UA positive for NIRMALA, PRO, and Nitrates - Start Macrobid 100 mg PO BID x 7 days- RX sent - Pyridium 200 mg PO every 8 hours as needed for pain- patient has medication at home - Increase hydration - Will notify patient of urine culture results and any changes to antibiotics DHIRAJ Mclean Courtney, APRN.CNM 04/30/2024 3:42 PM Edited Orders: UA DIP,URINE HCG (POC) URINE CULTURE Kaya Coleman APRN.CNM 04/30/2024 3:42 PM Edited Orders: UA DIP,URINE HCG (POC) Allergies As of Date: 04/30/2024 Noted Allergy Reaction KEFLEX (CEPHALEXIN) 03/09/2024 14 - Other: See Comments Comments: thrombocytopenia Date Reviewed: 04/30/2024 Reviewed by: Vilma Bennett MA - Fully Assessed Reason for Visit: UTI [116] Primary Visit Diagnosis:History of recurrent UTI (urinary tract infection) [Z87.440] Other Visit Diagnosis:Dysuria [R30.0] Order(s):UA DIP,URINE HCG (POC) [[id number]] Order #: [id number] UA DIP, URINE (POC) [[id number]] Order #: [id number]. #:[id number] URINE CULTURE [SQURCUL] Order #: [id number] nitrofurantoin monohydrate and macrocrystal (MACROBID) 100 mg capsuleTake 1 capsule by mouth two times a day for 7 days.Disp: 14 capsuleRfl: 0 Prescriptions as of 04/30/2024 - nitrofurantoin monohydrate and macrocrystal (MACROBID) 100 mg capsule Take 1 capsule by mouth two times a day for 7 days. - vit no.129/iron/folic ( ONE DAILY ORAL) Take by mouth. - acetaminophen (TYLENOL EXTRA STRENGTH) 500 mg tablet Take 1,000 mg by mouth every 8 hours as needed. Problem List As Of Date 04/30/2024 Noted Resolved Depression with anxiety [F41.8] Endometriosis [N80.9] 12/10/2018 Right flank pain [R10.9] 11/12/2023 11/21/2023 with care elsewhere in [facility]*11/21/2023 History of recurrent UTI (urinary tract infecti*11/21/2023 History of miscarriage [Z87.59] 11/21/2023 Dysuria [R30.0] 11/21/2023 Circumvallate placenta, second trimester [O43.1*11/21/2023 Encounter for supervision of high risk pregnanc*11/21/2023 Benign gestational thrombocytopenia in second t*12/05/2023 Recurrent UTI [N39.0] 12/18/2023 History of kidney stones [Z87.442] 12/18/2023 Heartburn during in third trimester [*02/19/2024 Polyhydramnios in third trimester [O40.3XX0] 02/27/2024 Prescriptions ordered this encounter Disp Refills Start End NITROFURANTOIN MONOHYDRATE AND MACROCR* 14 c* 0 04/30/2024 05/07/2024 Route: ORAL Sig: Take 1 capsule by mouth two times a day for 7 days. Disposition: Return if symptoms worsen or fail to improve. Follow-up and Disposition History for Encounter Date Provider Department Center 04/30/2024 [id number] COLEMAN Encounter Status:Closed by KAYA COLEMAN on 04/30/24 Normal [facility] UA DIP, URINE (POC)on 2023 BILIRUBIN UA (POCT) Negative Negative [facility] CLARITY UA (POCT) Clear [facility] COLOR UA (POCT) Yellow [facility] GLUCOSE UA (POCT) Negative Negative mg/dL [facility] Hemoglobin Ql (U) Negative Negative [facility] Interpretation and review of laboratory results Abnormal [facility] KETONE UA (POCT) Negative Negative mg/dL [facility] LEUKOCYTES UA (POCT) Trace Abnormal Negative [facility] NITRITE UA (POCT) Positive Abnormal Negative [facility] PH UA (POCT) 6.0 4.5 - 8.0 [facility] Protein Ql (U) 100 mg/dL Abnormal Negative [facility] SPECIFIC GRAVITY UA (POCT) >=1.030 1.005 - 1.030 [facility] UROBILINOGEN UA (POCT) 0.2 Normal E.U./d L [facility] Location:[facility], [address], [place], [address] [facility] POINT OF CARE [facility] [place] 04-15-2024 KIMI Telephone (OBGYWM) KIMANI OWENS ([id number]) 2000 F Date Time Provider Department 04/15/24 KAYA COLEMAN During your visit today, we recorded the following information about you: Hill Van 04/15/2024 11:36 AM Signed Consult to Behavior Health, please assist and advice. Thank you Allergies As of Date: 04/15/2024 Noted Allergy Reaction KEFLEX (CEPHALEXIN) 03/09/2024 14 - Other: See Comments Comments: thrombocytopenia Date Reviewed: 04/15/2024 Reviewed by: Ayanna Brand LPN - Fully Assessed Prescriptions as of 04/26/2024 - vit no.129/iron/folic ( ONE DAILY ORAL) Take by mouth. - acetaminophen (TYLENOL EXTRA STRENGTH) 500 mg tablet Take 1,000 mg by mouth every 8 hours as needed. Problem List As Of Date 04/15/2024 Noted Resolved Depression with anxiety [F41.8] Endometriosis [N80.9] 12/10/2018 Right flank pain [R10.9] 11/12/2023 11/21/2023 with care elsewhere in [facility]*11/21/2023 History of recurrent UTI (urinary tract infecti*11/21/2023 History of miscarriage [Z87.59] 11/21/2023 Dysuria [R30.0] 11/21/2023 Circumvallate placenta, second trimester [O43.1*11/21/2023 Encounter for supervision of high risk pregnanc*11/21/2023 Benign gestational thrombocytopenia in second t*12/05/2023 Recurrent UTI [N39.0] 12/18/2023 History of kidney stones [Z87.442] 12/18/2023 Heartburn during in third trimester [*02/19/2024 Polyhydramnios in third trimester [O40.3XX0] 02/27/2024 Encounter Status:Closed by HILL VAN on 04/26/24 [facility] [place] 03-30-2024 KIMI Telephone (OBGYWM) KIMANI OWENS ([id number]) 2000 F Date Time Provider Department 03/30/24 CHATA BRAUN During your visit today, we recorded the following information about you: Palmira Del Angel RN 03/30/2024 10:10 AM Signed Patient delivered 03/25/24. Asking how she can dry up her milk supply. She is wearing a tight fitting bra and applying ice. She did hand express some milk due to engorgement. JANNA Hernandes Jessica, APRN.CNM 03/30/2024 10:35 AM Signed Can try taking Pseudofed for 2-3 days. Can add Claritin once daily as well. DHIRAJ Handy Tara, RN 03/30/2024 10:41 AM Signed Pt notified and advised to avoid nipple stimulation as well. Pt voiced understanding. Alissa Pereyra RN Allergies As of Date: 03/30/2024 Noted Allergy Reaction KEFLEX (CEPHALEXIN) 03/09/2024 14 - Other: See Comments Comments: thrombocytopenia Date Reviewed: 03/19/2024 Reviewed by: Vilma Bennett MA - Fully Assessed Reason for Visit: Question [Other] Prescriptions as of 03/30/2024 - omeprazole (PRILOSEC) 20 mg capsule Take 1 capsule by mouth two times a day. - ondansetron orally disintegrating (ZOFRAN ODT) 4 mg disintegrating tablet DISSOLVE 1 TABLET IN MOUTH EVERY 6 HOURS NEEDED FOR NAUSEA AND VOMITING - vit no.129/iron/folic ( ONE DAILY ORAL) Take by mouth. - acetaminophen (TYLENOL EXTRA STRENGTH) 500 mg tablet Take 1,000 mg by mouth every 8 hours as needed. Problem List As Of Date 03/30/2024 Noted Resolved Depression with anxiety [F41.8] Endometriosis [N80.9] 12/10/2018 Right flank pain [R10.9] 11/12/2023 11/21/2023 with care elsewhere in [facility]*11/21/2023 History of recurrent UTI (urinary tract infecti*11/21/2023 History of miscarriage [Z87.59] 11/21/2023 Dysuria [R30.0] 11/21/2023 Circumvallate placenta, second trimester [O43.1*11/21/2023 Encounter for supervision of high risk pregnanc*11/21/2023 Benign gestational thrombocytopenia in second t*12/05/2023 Recurrent UTI [N39.0] 12/18/2023 History of kidney stones [Z87.442] 12/18/2023 Heartburn during in third trimester [*02/19/2024 Polyhydramnios in third trimester [O40.3XX0] 02/27/2024 Encounter Status:Closed by ALISSA PEREYRA on 03/30/24 Normal [facility] CBC W/Diff, Automatedon 11-2 -2023 Absolute Lymph 2.10 X10 3/uL Normal 0.83-4.51 [facility] Comment on above: Performed By: #### L 100.0100, BTS #### [facility] [address] [place], [address] Absolute Neut 6.6 X10 3/uL Normal 2.0-7.7 [facility] Comment on above: Performed By: #### L 100.0100, BTS #### [facility] [address] [place], [address] Basophils/100 WBC (Bld) 0.4 % Normal 0-1 [facility] Comment on above: Performed By: #### L 100.0100, BTS #### [facility] [address] [place], [address] Eosinophils/100 WBC (Bld) 1.0 % Normal 0-5 [facility] Comment on above: Performed By: #### L 100.0100, BTS #### [facility] [address] [place], [address] Erythrocyte distribution width (RBC) [Ratio] 14.4 % Normal 11.6-14.6 [facility] Comment on above: Performed By: #### L 100.0100, BTS #### [facility] [address] [place], [address] Hematocrit (Bld) [Volume fraction] 31.1 % Low 37-47 [facility] Comment on above: Performed By: #### L 100.0100, BTS #### [facility] [address] [place], [address] Hemoglobin (Bld) [Mass/Vol] 9.8 g/dL Low 12.0-15.0 [facility] Comment on above: Performed By: #### L 100.0100, BTS #### [facility] [address] [place], [address] IG% 0.600 Normal 0.0-0.9 [facility] Comment on above: Result Comment: IG% - Immature Granulocytes (promyelocytes, myelocytes and metamyelocytes) > 1% indicates that a LEFT SHIFT is Present. Performed By: #### L 100.0100, BTS #### [facility] [address] [place], [address] Lymphocytes/100 WBC (Bld) 21.5 % Normal 19-41 [facility] Comment on above: Performed By: #### L 100.0100, BTS #### [facility] [address] [place], [address] MCH (RBC) [Entitic mass] 25.5 pg Low 27.0-32.0 [facility] Comment on above: Performed By: #### L 100.0100, BTS #### [facility] [address] [place], [address] MCHC (RBC) [Mass/Vol] 31.5 g/dL Low 32-36 [facility] Comment on above: Performed By: #### L 100.0100, BTS #### [facility] [address] [place], [id number] MCV (RBC) [Entitic vol] 81.0 fL Normal 81-99 [facility] Comment on above: Performed By: #### L 100.0100, BTS #### [facility] [address] [place], [address] Monocytes/100 WBC (Bld) 8.8 % Normal 0-10 [facility] Comment on above: Performed By: #### L 100.0100, BTS #### [facility] [address] [place], [address] Neutrophils/100 WBC (Bld) 67.7 % Normal 47-70 [facility] Comment on above: Performed By: #### L 100.0100, BTS #### [facility] [address] [place], [address] Nucleated RBC (Bld) [#/Vol] 0 10*3/uL Normal 0-5 [facility] Comment on above: Performed By: #### L 100.0100, BTS #### [facility] [address] [place], [address] Platelet mean volume (Bld) [Entitic vol] 11.8 fL Normal 6.2-12.0 [facility] Comment on above: Performed By: #### L 100.0100, BTS #### [facility] [address] [place], [address] Platelets (Bld) [#/Vol] 180 10*3/uL Normal 150-450 [facility] Comment on above: Performed By: #### L 100.0100, BTS #### [facility] [address] [place], [id number] RBC (Bld) [#/Vol] 3.84 10*6/uL Low 4.2-5.4 [facility] Comment on above: Performed By: #### L 100.0100, BTS #### [facility] [address] [place], [address] RDW SD 42.1 fl Normal 35.1-43.9 [facility] Comment on above: Performed By: #### L 100.0100, BTS #### [facility] [address] [place], [address] WBC (Bld) [#/Vol] 9.8 10*3/uL Normal 4.4-11.0 [facility] Comment on above: Performed By: #### L 100.0100, BTS #### [facility] [address] [place], [address] H AND P Exam - OB/GYNon 03-07 H&P Exam - DELIVERY DRIVER/CUSTOMER SERVICE [facility] Medical Records Department [address] [place] [address] H P Exam - DELIVERY DRIVER/CUSTOMER SERVICE 03/25/24 0745 MR#: [id number] Acct: [id number] Name: KIMANI OWENS Rep #: [id number] : 2000 23 From: Kaya Coleman CNM PCP: Care Physician,No Primary Status:ADM IN Location: [place] [address] HPI - General General Date of Admission: 03/25/24 HPI Narrative * KIMANI OWENS, is a 23 F at 39.5 weeks gestation who presents for an elective induction of labor. Maternal Data Information CHRISTIE Calculator Estimated Delivery Date Method Current WG Current Estimate 03/27/24 Manual 39w 5d PFSH PFSH Medical History Circumvallate placenta Supervision of high-risk Thrombocytopenia affecting History of miscarriage, currently Abdominal pain of right lower quadrant during , antepartum Chromosome abnormality fetus, affect management of mother, antepartum Easy bruising Incomplete UTI in [place] Left renal stone Marijuana use Low iron Migraine headache Vapes nicotine containing substance History of stress test depression Fatigue Pilonidal cyst Anxiety and depression Home Medications ???Medication ???Instructions ???Recorded ???Last Taken ???Type multivitamin no.47-iron fum 27 1 cap PO DAILY 08/09/23 02/22/24 22:00 History mg-folate no.1 1 mg-dha 300 mg capsule (PNV-DHA) ondansetron 4 mg disintegrating 4 mg PO Q6H PRN nausea and 10/07/23 03/25/24 Rx tablet vomiting #30 tabs omeprazole 20 mg capsule,delayed 20 mg PO PRN heartburn 02/24/24 03/24/24 History release Allergy/AdvReac Type Severity Reaction Status Date / Time cephalexin (From Keflex) AdvReac Other Verified 03/25/24 07:46 Family History Father Arthritis Diabetes Hypertension High cholesterol Mother Arthritis Hypertension Lupus Bhgxr-Zmoyymmov-Jcdvc (WPW) syndrome Grandmother Thyroid cancer, Onset Age: 70 Maternal Surgical History Status post dilation and curettage Hx of wisdom tooth extraction History of laparoscopy Social History adopted: No household members: spouse and children housing: house number of children: 2 current occupational status: unemployed current occupation: [employer] current occupational exposures/hazards: No pets and animals: Yes (2) pets and animals: dog(s) history of recent travel: No sexually active: Yes Smoking Status: Former smoker quit date: 07/22/23 second hand exposure: No alcohol intake: never substance use type: does not use diet: lactose free well-balanced diet: daily or most days caffeine: No eating out: 1-3 times/week during the past year weight has: remained stable what type of physical activity do you participate in: none amish/bahai: None seatbelt use: always do you feel safe at home: Yes 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 history: Lloyd () History 4 Elective abortions Hx Para 3 Spontaneous abortions 1 Hx # Term Pregnancies 2 Ectopic pregnancies Hx # Pregnancies Multiple births # of living children 2 Past Pregnancies Del. Date Name GA/Weeks Outcome Route Bth Weight Infant Gen Labor Lgth Anesthesia Del Locatn Provider FOB 03/24/18 River 40 live - full term 7lbs 5oz Male 12 hours epidural [facility] SM 10/27/20 Thaddeus 40 live - full term 7lbs 14oz Male epidural [facility] Ashu 05/21/23 11 spontaneous Delivery Date: 03/24/18 Last Updated by: Maximo Singletray dec- internal monitor used. Delivery Date: 05/21/23 Last Updated by: Mony Pruitt C @ 11WKS, BABY STOPPED DEVELOPING AT 7 WKS ROS Eyes Eyes: Denies blurry vision, change in vision or spots in vision ENT HEENT: Denies dizziness or headache(s) Cardiovascular Cardiovascular: Denies abdominal pain, chest pain or dyspnea Respiratory/Chest Respiratory/Chest: Denies cough, dyspnea, shortness of breath at rest or shortness of breath with exertion Gastrointestinal Gastrointestinal: Denies abdominal pain, diarrhea or vomiting Genitourinary Genitourinary: Denies change in urinary stream, difficulty urinating or dysuria Musculoskeletal Musculoskeletal: Reports none Integumentary Integumentary: Denies rash Neurologic Neurologic: Denies dizziness, headache(s), memory loss or weakness Psychiatric Psychiatric: Reports none Physical Exam Const alert, oriented x3 and no apparent distress General Appearance: cooperative Orientation / Consciousness: awake Exam Limitations: no limitations HEENT normocephalic Head and S (more content not included)... Normal [facility] L509.8000on 03-25-2024 Syphilis Abs Non-Reactive Normal [facility] Comment on above: Performed By: #### L 509.8000 #### [facility] [address] [place], [address] MR/OB.VAGDELIon 03-25-2024 [facility] Medical Records Department [address] [place] [address] OB VAGINAL DELIVERY 03/25/24 1648 MR#: [id number] Acct: [id number] Name: KIMANI OWENS Rep #: [id number] : 2000 23 From: Kaya Coleman CNM PCP: Care Physician,No Primary Status:ADM IN Location: [place] [id number] Assessment Plan (1) Meconium in amniotic fluid: (2) (spontaneous vaginal delivery): (3) Anxiety and depression: COMMENT: NO MEDS Maternal Data Information CHRISTIE Calculator Estimated Delivery Date Method Current WG Current Estimate 03/27/24 Manual 39w 5d Vaginal Delivery Maternal Presentation Maternal Presentation: Elective Induction Type of Induction: Pitocin and Amniotomy Vaginal Delivery Information Procedure Performed: Spontaneous Vaginal Delivery Surgeon/Practitioner: Kaya Coleman Date of Procedure: 03/25/24 Pre-Procedure Diagnosis: Term gestation, Elective induction of labor Post-Procedure Diagnosis: , Live male infant Type of anesthesia: Epidural Estimated Blood Loss: 250 Time of Delivery: 16:35 Findings Description of procedure: Called to patient's bedside for feeling urge to bear down. Patient complete dilation. Blood Bank Technician and RT at bedside for delivery. With good maternal effort, head delivered followed by anterior shoulder and remainder of infant body via somersault maneuver due to nuchal cord around neck and body. Vigorous male was delivered atraumatically and placed on maternal abdomen. Pitocin IV started for active management of the third stage of labor. 3 vessel cord clamped and cut after delay and infant placed immediately skin to skin with patient. Placenta delivered spontaneously and intact. Circumvallate placenta. After inspection, vagina and perineum are intact. Vaginal sweep performed. Fundus is firm 2 below U and bleeding is hemostatic. Sponge and sharps counts correct. Patient and bonding well at this time. Dr. Palma notified of delivery. Routine post orders placed. Presentation: Vertex Amniotic Membrane Rupture Type: Artificial Amniotic Fluid Description: Thick meconium Placental Delivery Description: Spontaneous Placenta Disposition: [facility] Specimen collected: No Cord Vessel Description: 3 Vessels Cord Entanglement: Around neck x 1, tight Nuchal Cord Compression: With compression A Gender: Male (1 minute): 9 (5 minute): 9 Delayed Cord Clamping: Yes Magnetizer tube former operator: No Post Vaginal Deli Medications given after delivery: IV Pitocin Episiotomy Description: None Laceration: None Complication Complications: No 03/25/241701 Cosigner Signature (if applicable): CC: JOLYNN Coleman; No Primary Care Physician Signed [facility] Type AND Screenon 03-25-2024 Ab SCREEN GEL Negative [facility] Comment on above: Order Comment: Labor Performed By: #### L 100.0100, BTS #### [facility] [address] [place], [address] Urine Drug Screen (VISTA)on 03-25-2024 AMPHETAMINES Negative Normal <1000 ng/mL [facility] Comment on above: Performed By: #### L 505.5000 #### [facility] [address] [place], [address] BARBITIURATES Negative Normal < 200 ng/mL [facility] Comment on above: Performed By: #### L 505.5000 #### [facility] [address] [place], [address] BENZODIAZIPINE Negative Normal < 200 ng/mL [facility] Comment on above: Performed By: #### L 505.5000 #### [facility] [address] [place], [address] COCAINE Negative Normal < 300 ng/mL [facility] Comment on above: Performed By: #### L 505.5000 #### [facility] [address] [place], [address] ECSTACY Negative Normal < 500 ng/mL [facility] Comment on above: Performed By: #### L 505.5000 #### [facility] [address] [place], [address] METHADONE Negative Normal < 300 ng/mL [facility] Comment on above: Performed By: #### L 505.5000 #### [facility] [address] [place], [address] OPIATES Negative Normal < 300 ng/mL [facility] Comment on above: Performed By: #### L 505.5000 #### [facility] [address] [place], [address] PCP Negative Normal < 25 ng/mL [facility] Comment on above: Performed By: #### L 505.5000 #### [facility] [address] [place], [address] THC Positive Abnormal < 50 ng/mL [facility] Comment on above: Performed By: #### L 505.5000 #### [facility] [address] [place], [address] VISTA UDS PH [address] [facility] Comment on above: Performed By: #### L 505.5000 #### [facility] [address] [place], [address] Examination level ultrasound on 03-19-2024 [facility] Radiology Study observation (narrative) [facility] URINE OB DIP B/OOrdered By: Vilma Bennett on 03-19-2024 Glucose Ql (U) Negative Neg mg/dL [facility] Protein.monoclonal (U) [Mass/Vol] Negative Neg mg/dL [facility] CNPNon 03-16-2024 CNPN Telephone (OBGYWM) KIMANI OWENS ([id number]) 2000 F Date Time Provider Department 03/16/24 KAYA COLEMAN During your visit today, we recorded the following information about you: Palmira Del Angel RN 03/16/2024 8:51 AM Signed ----- Message from Kaya Coleman APRN.CNM sent at 03/16/2024 7:58 AM EST ----- Urine culture reviewed. Recently treated with Fosfomycin 3gm. DHIRAJ Mclean Jennifer, RN 03/16/2024 8:52 AM Signed 38w3d Patient called to inquire about treatment for UTI. Reviewed message below. Patient states that it did not treat the infection. Still having dysuria and urine odor. JANNA Hernandes Courtney, APRN.CNM 03/16/2024 11:00 AM Signed Discussed with SW. Will send RX for Macrobid 100 mg PO BID x 7 days. Please notify patient she will need to finish all medications. DHIRAJ Mclean Lindsey, RN 03/16/2024 11:04 AM Signed Left message to call office. JANNA Koch Jennifer, RN 03/16/2024 11:11 AM Signed Patient notified. Palmira Del Angel RN Allergies As of Date: 03/16/2024 Noted Allergy Reaction KEFLEX (CEPHALEXIN) 03/09/2024 14 - Other: See Comments Comments: thrombocytopenia Date Reviewed: 03/12/2024 Reviewed by: Bonnie Bryan MA - Fully Assessed Reason for Visit: Results [95] Order(s):nitrofuranto in monohydrate and macrocrystal (MACROBID) 100 mg capsuleTake 1 capsule by mouth two times a day for 7 days.Disp: 14 capsuleRfl: 0 Prescriptions as of 03/16/2024 - nitrofurantoin monohydrate and macrocrystal (MACROBID) 100 mg capsule Take 1 capsule by mouth two times a day for 7 days. - omeprazole (PRILOSEC) 20 mg capsule Take 1 capsule by mouth two times a day. - ondansetron orally disintegrating (ZOFRAN ODT) 4 mg disintegrating tablet DISSOLVE 1 TABLET IN MOUTH EVERY 6 HOURS NEEDED FOR NAUSEA AND VOMITING - vit no.129/iron/folic ( ONE DAILY ORAL) Take by mouth. - acetaminophen (TYLENOL EXTRA STRENGTH) 500 mg tablet Take 1,000 mg by mouth every 8 hours as needed. Problem List As Of Date 03/16/2024 Noted Resolved Depression with anxiety [F41.8] Endometriosis [N80.9] 12/10/2018 Right flank pain [R10.9] 11/12/2023 11/21/2023 with care elsewhere in [facility]*11/21/2023 History of recurrent UTI (urinary tract infecti*11/21/2023 History of miscarriage [Z87.59] 11/21/2023 Dysuria [R30.0] 11/21/2023 Circumvallate placenta, second trimester [O43.1*11/21/2023 Encounter for supervision of high risk pregnanc*11/21/2023 Benign gestational thrombocytopenia in second t*12/05/2023 Recurrent UTI [N39.0] 12/18/2023 History of kidney stones [Z87.442] 12/18/2023 Heartburn during in third trimester [*02/19/2024 Polyhydramnios in third trimester [O40.3XX0] 02/27/2024 Prescriptions ordered this encounter Disp Refills Start End NITROFURANTOIN MONOHYDRATE AND MACROCR* 14 c* 0 03/16/2024 03/23/2024 Route: ORAL Sig: Take 1 capsule by mouth two times a day for 7 days. Medications Discontinued During This Encounter Prescriptions - fosfomycin (MONUROL) 3 g pack (Discontinued) Encounter Status:Closed by KAYA COLEMAN on 03/16/24 [facility] Bacteria Ur Culton Bacteria identified Cx Nom (U) ORGANISM ID: 1 50,000-<100,000 CFU/ml Escherichia coli ORGANISM ID: 1 (ESCHERICHIA COLI) ------ ANTIBIOTIC INTERPRETATION REGINALDO STATUS REFERENCE RANGE ------ Ampicillin I 16 F Susceptible <=8 , Intermediate >8 , Resistant >16 Cefazolin S <=4 F Susceptible 0-16 , Intermediate <0 or >16 , Resistant >16 For uncomplicated urinary tract infections, cefazolin results can be used to predict susceptibility or resistance to cephalexin. Ceftriaxone S <=1 F Susceptible <=1 , Intermediate >1 , Resistant >=4 Cefepime S <=1 F Susceptible <=2 , Susceptible-Dose Dependent >2 , Resistant >=16 Ertapenem S <=0.5 F Susceptible <=0.5 , Intermediate >.5 , Resistant >1 Meropenem S <=0.25 F Susceptible <=1 , Intermediate >1 , Resistant >2 Ampicillin/Sulbact S 4 F Susceptible <=8 , Intermediate >8 , Resistant >16 Piperacillin/Tazobac S <=4 F Susceptible <16 , Susceptible-Dose Dependent >=16 , Resistant >=32 Gentamicin S <=1 F Susceptible <=2 , Intermediate >2 , Resistant >=8 Tobramycin S <=1 F Susceptible <4 , Intermediate >=4 , Resistant >=8 Trimeth sulfameth S <=20 F Susceptible <=40 , Resistant >40 Ciprofloxacin S <=0.25 F Susceptible <0.5 , Intermediate >=.5 , Resistant >=1 Nitrofurantoin S <=16 F Susceptible <=32 , Intermediate >32 , Resistant >64 Abnormal [facility] Comment on above: Performed By: #### 6 30-4 ####[facility] LABIA [id number] [address] [place] 03-12-2024 [facility] Telephone (JOMARGYPatM) KIMANI OWENS ([id number]) 2000 F Date Time Provider Department 03/12/24 KAYA COLEMAN During your visit today, we recorded the following information about you: Alissa Pereyra, JANNA 03/12/2024 1:02 PM Signed 37w6d Pt calls stating she has not felt well all day. Has body aches. Denies fever, headache, leaking of fluid, RUQ pain. Pt does report blurred vision/spotty vision. Checked BP and 133/86. Appt scheduled with CP today. Alissa Peeryra RN Allergies As of Date: 03/12/2024 Noted Allergy Reaction KEFLEX (CEPHALEXIN) 03/09/2024 14 - Other: See Comments Comments: thrombocytopenia Date Reviewed: 03/11/2024 Reviewed by: Palmira Palmer MD - Fully Assessed Prescriptions as of 03/12/2024 - omeprazole (PRILOSEC) 20 mg capsule Take 1 capsule by mouth two times a day. - ondansetron orally disintegrating (ZOFRAN ODT) 4 mg disintegrating tablet DISSOLVE 1 TABLET IN MOUTH EVERY 6 HOURS NEEDED FOR NAUSEA AND VOMITING - vit no.129/iron/folic ( ONE DAILY ORAL) Take by mouth. - acetaminophen (TYLENOL EXTRA STRENGTH) 500 mg tablet Take 1,000 mg by mouth every 8 hours as needed. Problem List As Of Date 03/12/2024 Noted Resolved Depression with anxiety [F41.8] Endometriosis [N80.9] 12/10/2018 Right flank pain [R10.9] 11/12/2023 11/21/[facility]11/21/2023 History of recurrent UTI (urinary tract infecti*11/21/2023 History of miscarriage [Z87.59] 11/21/2023 Dysuria [R30.0] 11/21/2023 Circumvallate placenta, second trimester [O43.1*11/21/2023 Encounter for supervision of high risk pregnanc*11/21/2023 Benign gestational thrombocytopenia in second t*12/05/2023 Recurrent UTI [N39.0] 12/18/2023 History of kidney stones [Z87.442] 12/18/2023 Heartburn during in third trimester [*02/19/2024 Polyhydramnios in third trimester [O40.3XX0] 02/27/2024 Encounter Status:Closed by ALISSA PEREYRA on 03/12/24 Normal [facility] UA DIP, URINE (POC)on 2023 BILIRUBIN UA (POCT) Negative Negative [facility] CLARITY UA (POCT) Clear [facility] COLOR UA (POCT) Yellow [facility] GLUCOSE UA (POCT) Negative Negative mg/dL [facility] Hemoglobin Ql (U) Negative Negative [facility] KETONE UA (POCT) Negative Negative mg[facility]dL [facility] LEUKOCYTES UA (POCT) Negative Negative [facility] NITRITE UA (POCT) Negative Negative [facility] PH UA (POCT) 6.5 4.5 - 8.0 [facility] Protein Ql (U) Negative Negative mg/dL [facility] SPECIFIC GRAVITY UA (POCT) >=1.030 1.005 - 1.030 [facility] UROBILINOGEN UA (POCT) 1.0 Normal E.U./d L [facility] Location:[facility], [address] , [place], [place], [id number] [place] [address] POINT OF CARE [facility] URINE OB DIP B/Oon 4 Glucose Ql (U) Negative Neg mg/dL [facility] Protein.monoclonal (U) [Mass/Vol] trace Neg mg/dL [facility] [place] 03-10-2024 KIMI Telephone (OBGYWM) KIMANI OWENS ([id number]) 2000 F Date Time Provider Department 03/10/24 INGRID MATOS During your visit today, we recorded the following information about you: Ingrid Matos APRN.HAROLDO 03/10/2024 7:14 AM Signed Please notify patient that she does have a yeast infection. I would like her to use Monistat 7 (or generic) 1 of a applicator full every night for 7 nights. If symptoms do not improve please ryland the office. Ingrid Matos APRN.Palmira March RN 03/10/2024 8:24 AM Signed 37w4d Patient called in to the office. Notified of +yeast. States she is having severe side effects of the medication SW prescribed yesterday, MONUROL 3 g pack x1 dose for UTI. Patient has had more than a handful of times of diarrhea, rib pain which is sharp, nausea, and pelvic pain that is achy. Overall feeling miserable. She took an anit-diarrhea medication this morning which hasn't helped. Encouraged pushing fluids. Patient asking if these are side effects of this medication. JANNA Hernandes Jessica, APRN.CNM 03/10/2024 9:11 AM Signed Potential side effects but as long as no itching, throat swelling or signs of severe allergic reaction to monitor. Increase hydration, rest. If vaginal bleeding, fluid leakage or signs of labor to come in. If no improvement by tomorrow recommend evaluation or if worsening. DHIRAJ Handy Annalee, LPN 03/10/2024 10:24 AM Signed Patient notified of directions Allergies As of Date: 03/10/2024 Noted Allergy Reaction KEFLEX (CEPHALEXIN) 03/09/2024 14 - Other: See Comments Comments: thrombocytopenia Date Reviewed: 03/09/2024 Reviewed by: Allison Rosenberg MA - Fully Assessed Reason for Visit: Results [95] Prescriptions as of 03/10/2024 - omeprazole (PRILOSEC) 20 mg capsule Take 1 capsule by mouth two times a day. - ondansetron orally disintegrating (ZOFRAN ODT) 4 mg disintegrating tablet DISSOLVE 1 TABLET IN MOUTH EVERY 6 HOURS NEEDED FOR NAUSEA AND VOMITING - vit no.129/iron/folic ( ONE DAILY ORAL) Take by mouth. - acetaminophen (TYLENOL EXTRA STRENGTH) 500 mg tablet Take 1,000 mg by mouth every 8 hours as needed. Problem List As Of Date 03/10/2024 Noted Resolved Depression with anxiety [F41.8] Endometriosis [N80.9] 12/10/2018 Right flank pain [R10.9] 11/12/2023 11/21/2023 with care elsewhere in [facility]*11/21/2023 History of recurrent UTI (urinary tract infecti*11/21/2023 History of miscarriage [Z87.59] 11/21/2023 Dysuria [R30.0] 11/21/2023 Circumvallate placenta, second trimester [O43.1*11/21/2023 Encounter for supervision of high risk pregnanc*11/21/2023 Benign gestational thrombocytopenia in second t*12/05/2023 Recurrent UTI [N39.0] 12/18/2023 History of kidney stones [Z87.442] 12/18/2023 Heartburn during in third trimester [*02/19/2024 Polyhydramnios in third trimester [O40.3XX0] 02/27/2024 Encounter Status:Closed by BEL QUINTANA on 03/10/24 Normal [facility] BACTERIAL VAGINOSIS NAATon 1 05-09-2023 Lactobacillus crispatus+gasseri+jense maira + Gardnerella vaginalis + Atopobium vaginae rRNA ASHLIE+probe Ql (Vag fld) Negative Normal Negative for bacterial vaginosis [facility] Comment on above: Order Comment: Speci men Type: SWABOrdering Facility: [facility] Address: [address] [place] [address] Performed By: #### C VTV, BVAMP ####[facility] LABCLIA [id number] [place] [address] [place] Bacteria Ur Culton Bacteria identified Cx Nom (U) ORGANISM ID: 1 >=100,000 CFU/ml Escherichia coli ORGANISM ID: 1 (ESCHERICHIA COLI) ------ ANTIBIOTIC INTERPRETATION REGINALDO STATUS REFERENCE RANGE ------ Ampicillin S 8 F Susceptible <=8 , Intermediate >8 , Resistant >16 Cefazolin S <=4 F Susceptible 0-16 , Intermediate <0 or >16 , Resistant >16 For uncomplicated urinary tract infections, cefazolin results can be used to predict susceptibility or resistance to cephalexin. Ceftriaxone S <=1 F Susceptible <=1 , Intermediate >1 , Resistant >=4 Cefepime S <=1 F Susceptible <=2 , Susceptible-Dose Dependent >2 , Resistant >=16 Ertapenem S <=0.5 F Susceptible <=0.5 , Intermediate >.5 , Resistant >1 Meropenem S <=0.25 F Susceptible <=1 , Intermediate >1 , Resistant >2 Ampicillin/Sulbact S 4 F Susceptible <=8 , Intermediate >8 , Resistant >16 Piperacillin/Tazobac S <=4 F Susceptible <16 , Susceptible-Dose Dependent >=16 , Resistant >=32 Gentamicin S <=1 F Susceptible <=2 , Intermediate >2 , Resistant >=8 Tobramycin S <=1 F Susceptible <4 , Intermediate >=4 , Resistant >=8 Trimeth sulfameth S <=20 F Susceptible <=40 , Resistant >40 Ciprofloxacin S <=0.25 F Susceptible <0.5 , Intermediate >=.5 , Resistant >=1 Nitrofurantoin S <=16 F Susceptible <=32 , Intermediate >32 , Resistant >64 Abnormal [facility] Comment on above: Performed By: #### 6 30-4 ####[facility] LABCLIA [id number] [place] [address] [place] NEMO/TRICHOMONAS NAATon 1 05-09-2023 C. glabrata RNA ASHLIE+probe Ql (Vag fld) Negative Normal Negative for Nemo glabrata [facility] Comment on above: Order Comment: Speci men Type: SWABOrdering Facility: [facility] Address: [address] [place] [address] Performed By: #### C VTV, BVAMP ####[facility] LABCLIA [id number] [id number] [address] [place] Nemo sp DNA ASHLIE+probe Ql (Vag fld) Positive Abnormal Negative for Nemo species [facility] Comment on above: Order Comment: Speci men Type: SWABOrdering Facility: [facility] Address: [address] [place] [address] Performed By: #### C VTV, BVAMP ####[facility] LABCLIA [id number] [address] OF [place] T. vaginalis DNA ASHLIE+probe Ql (Unsp spec) Negative Normal Negative for Trichomonas vaginalis by amplification [facility] Comment on above: Order Comment: Speci men Type: SWABOrdering Facility: [facility] Address: [address] [place] [address] Performed By: #### C VTV, BVAMP ####[facility] LABCLIA [id number] [address] [place] UA DIP, URINE (POC)on 2023 BILIRUBIN UA (POCT) Negative Negative [facility] CLARITY UA (POCT) Cloudy [facility] COLOR UA (POCT) Dark yellow [facility] GLUCOSE UA (POCT) Negative Negative mg/dL [facility] Hemoglobin Ql (U) Negative Negative [facility] Interpretation and review of laboratory results Abnormal [facility] KETONE UA (POCT) Negative Negative mg/dL [facility] LEUKOCYTES UA (POCT) Small Abnormal Negative [facility] NITRITE UA (POCT) Positive Abnormal Negative [facility] PH UA (POCT) 6.0 4.5 - 8.0 [facility] Protein Ql (U) Trace Abnormal Negative mg/dL [facility] SPECIFIC GRAVITY UA (POCT) >=1.030 1.005 - 1.030 [facility] UROBILINOGEN UA (POCT) 1.0 Normal E.U./d L [facility] Location:[facility], [address] [facility], [place], [place], [address] [place] [address] POINT OF CARE [facility] URINE OB DIP B/Oon 4 Glucose Ql (U) Negative Neg mg/dL [facility] Interpretation and review of laboratory results Normal [facility] Protein.monoclonal (U) [Mass/Vol] Negative Neg mg/dL [facility] ROUTINE, GROUP B ST REP PCRon 02-27-2024 ROUTINE, GROUP B STREP PCR GROUP B STREP PCR: Negative for Group B Streptococcus by PCR. Normal [facility] Comment on above: Performed By: #### G BPCR ####[facility] LABCLIA [id number] [address] STATES OF [facility] Urine Cultureon 02-26-2024 [facility] Comments: sample in lab Escherichia coli Bartlett Count 80,000-100,000 Escherichia coli: REACTION Ampicillin Islt REGINALDO 8 Ampicillin+Sulbac Islt REGINALDO 4 S ceFAZolin Islt REGINALDO <=4 S Cefepime Islt REGINALDO <=0.12 S cefTRIAXone Islt REGINALDO <=0.25 S Ciprofloxacin Islt REGINALDO <=0.25 S B-Lactamase Extended Susc Islt NEG Gentamicin Islt REGINALDO <=1 S Imipenem Islt REGINALDO <=0.25 S levoFLOXacin Islt REGINALDO <=0.12 S Nitrofurantoin Islt REGINALDO <=16 S Pip+Tazo Islt REGINALDO <=4 S Tobramycin Islt REGINALDO <=1 S TMP SMX Islt REGINALDO <=[address] [facility] Comment on above: Performed By: #### M 100.2200 #### [facility] [address] [place], [address] [facility] 02-24-2024 [facility] Telephone (OBGYPatM) KIMANI OWENS ([id number]) 2000 F Date Time Provider Department 02/24/24 CHATA BRAUN During your visit today, we recorded the following information about you: Chata Braun APRN.CNM 02/24/2024 3:34 PM Signed Seen in [facility], ua positive for leuk and nitrites. Will send prescription for Macrobid 100mg PO BID x 7 days. Patient notified. Awaiting urine culture. Chata Braun APRN.Alissa Burgess RN 02/24/2024 3:40 PM Signed Pt currently on [facility] and aware. JANNA Merrill Trisha, RN 02/26/2024 8:57 AM Signed Urine culture report received and to MARGARITA to review. Patient comes in tomorrow to see CP. Yarelis New RN Allergies As of Date: 02/24/2024 (No Known Allergies) Date Reviewed: 02/19/2024 Reviewed by: Maximo Goetz APRN.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 - Fully Assessed Reason for Visit: Results [95] Order(s):nitrofuranto in monohydrate and macrocrystal (MACROBID) 100 mg capsuleTake 1 capsule by mouth two times a day for 7 days.Disp: 14 capsuleRfl: 0 Prescriptions as of 02/26/2024 - nitrofurantoin monohydrate and macrocrystal (MACROBID) 100 mg capsule Take 1 capsule by mouth two times a day for 7 days. - omeprazole (PRILOSEC) 20 mg capsule Take 1 capsule by mouth two times a day. - ondansetron orally disintegrating (ZOFRAN ODT) 4 mg disintegrating tablet DISSOLVE 1 TABLET IN MOUTH EVERY 6 HOURS NEEDED FOR NAUSEA AND VOMITING - vit no.129/iron/folic ( ONE DAILY ORAL) Take by mouth. - acetaminophen (TYLENOL EXTRA STRENGTH) 500 mg tablet Take 1,000 mg by mouth every 8 hours as needed. Problem List As Of Date 02/24/2024 Noted Resolved Depression with anxiety [F41.8] Endometriosis [N80.9] 12/10/2018 Right flank pain [R10.9] 11/12/2023 11/21/2023 with care elsewhere in [facility]*11/21/2023 History of recurrent UTI (urinary tract infecti*11/21/2023 History of miscarriage [Z87.59] 11/21/2023 Dysuria [R30.0] 11/21/2023 Circumvallate placenta, second trimester [O43.1*11/21/2023 Encounter for supervision of high risk pregnanc*11/21/2023 Benign gestational thrombocytopenia in second t*12/05/2023 Recurrent UTI [N39.0] 12/18/2023 History of kidney stones [Z87.442] 12/18/2023 Heartburn during in third trimester [*02/19/2024 Prescriptions ordered this encounter Disp Refills Start End NITROFURANTOIN MONOHYDRATE AND MACROCR* 14 c* 0 02/24/2024 03/02/2024 Route: ORAL Sig: Take 1 capsule by mouth two times a day for 7 days. Encounter Status:Closed by ALISSA PEREYRA on 02/24/24 Normal [facility] OB Triage Physician Noteon 1 OB Triage Physician Note [facility] Medical Records Department [address] [place] [address] OB Triage Physician Note 02/24/24 1740 MR#: [id number] Acct: [id number] Name: KIMANI OWENS Rep #: [id number] : 2000 23 From: Chata Braun CNM PCP: Care Physician,No Primary Status:DEP CLI Y Location: [facility] HPI - General HPI Narrative KIMANI OWENS, is a 23 F who presents for contractions and cramping. at 35w3. PFSH PFS Medical History Circumvallate placenta Thrombocytopenia affecting History of miscarriage, currently Supervision of high-risk Abdominal pain of right lower quadrant during , antepartum Chromosome abnormality fetus, affect management of mother, antepartum Easy bruising Incomplete UTI in [place] Left renal stone Marijuana use Low iron Migraine headache Vapes nicotine containing substance History of stress test depression Fatigue Pilonidal cyst Anxiety and depression Home Medications ???Medication ???Instructions ???Recorded ???Last Taken ???Type multivitamin no.47-iron fum 27 1 cap PO DAILY 08/09/23 02/22/24 22:00 History mg-folate no.1 1 mg-dha 300 mg capsule (PNV-DHA) ondansetron 4 mg disintegrating 4 mg PO Q6H PRN nausea and 06/03/24 10/21/24 08:00 Rx tablet vomiting #30 tabs omeprazole 20 mg capsule,delayed 20 mg PO PRN 02/24/24 02/23/24 18:00 History release Allergy/AdvReac Type Severity Reaction Status Date / Time No Known Allergies Allergy Verified 02/24/24 13:47 Family History Father Arthritis Diabetes Hypertension High cholesterol Mother Arthritis Hypertension Lupus Ndvcf-Zruytrlhx-Dabyk (WPW) syndrome Grandmother Thyroid cancer, Onset Age: 70 Maternal Surgical History Status post dilation and curettage Hx of wisdom tooth extraction History of laparoscopy Social History adopted: No household members: spouse and children housing: house number of children: 2 current occupational status: unemployed current occupation: [employer] current occupational exposures/hazards: No pets and animals: Yes (2) pets and animals: dog(s) history of recent travel: No sexually active: Yes Smoking Status: Former smoker quit date: 07/22/23 second hand exposure: No alcohol intake: never substance use type: does not use diet: lactose free well-balanced diet: daily or most days caffeine: No eating out: 1-3 times/week during the past year weight has: remained stable what type of physical activity do you participate in: none amish/bahai: None seatbelt use: always do you feel safe at home: Yes 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 history: Lloyd () History 4 Elective abortions Hx Para 2 Spontaneous abortions 1 Hx # Term Pregnancies 2 Ectopic pregnancies Hx # Pregnancies Multiple births # of living children 2 Past Pregnancies Del. Date Name GA/Weeks Outcome Route Bth Weight Infant Gen Labor Lgth Anesthesia Del Locatn Provider FOB 03/24/18 [place] 40 live - full term 7lbs 5oz Male 12 hours epidural [facility] RODGER 10/27/20 Thaddeus 40 live - full term 7lbs 14oz Male epidural [facility] Ashu 05/21/23 11 spontaneous Delivery Date: 03/24/18 Last Updated by: Maximo Singletary dec- internal monitor used. Delivery Date: 05/21/23 Last Updated by: Mony Pruitt C @ 11WKS, BABY STOPPED DEVELOPING AT 7 WKS NST FHR Rate Baby A Baseline: 125 Variability:: Moderate Accelerations:: 15 x 15 Decelerations:: None NST Reactive:: Yes Assessment Plan (1) Urinary tract infection: COMMENT: 02/24/24 Macrobid PLAN: Plan 1) UA positive for nitrites and leukocytes. Macrobid 100mg PO BID x7 days 2) Urine culture sent 3) No signs of labor, D/C home 02/24/24 1744 Date Chata Villanuevaignagueda Signature (if applicable): Date CC: JOLYNN Braun; No Primary Care Physician Signed Normal [facility] Urinalysis, Completeon 02-23 BACTERIA 1+ /hpf Normal None Seen [facility] Comment on above: Order Comment: CLEAN CATCH Performed By: #### L 400.0001 #### [facility] [address] [place], [address] EPI,SQUAMOUS 5-10 SEEN Normal 5-10 [facility] Comment on above: Order Comment: CLEAN CATCH Performed By: #### L 400.0001 #### [facility] [address] [place], [address] WBC 0-5 SEEN Normal 0-5 [facility] Comment on above: Order Comment: CLEAN CATCH Performed By: #### L 400.0001 #### [facility] [address] [place], [address] Mucus Ql (Urine sed) 0 SEEN Normal [facility] Comment on above: Order Comment: CLEAN CATCH Performed By: #### L 400.0001 #### [facility] [address] [place], [address] RBC 0 SEEN Normal 0-5 [facility] Comment on above: Order Comment: CLEAN CATCH Performed By: #### L 400.0001 #### [facility] [address] [place] [place], [address] Examination level ultrasound on 02-19-2024 [facility] Radiology Study observation (narrative) [facility] UA DIP, URINE (POC)on 2023 BILIRUBIN UA (POCT) Negative Negative [facility] CLARITY UA (POCT) Clear [facility] COLOR UA (POCT) Yellow [facility] GLUCOSE UA (POCT) Negative Negative mg/dL [facility] Hemoglobin Ql (U) Negative Negative [facility] Interpretation and review of laboratory results Abnormal [facility] KETONE UA (POCT) Negative Negative [facility] LE[facility] (POCT) Negative Negative [facility] NITRITE UA (POCT) Positive Abnormal Negative [facility] PH UA (POCT) 6.5 4.5 - 8.0 [facility] Protein Ql (U) Negative Negative mg/dL [facility] SPECIFIC GRAVITY UA (POCT) 1.025 1.005 - 1.030 [facility] UROBILINOGEN UA (POCT) 0.2 Normal E.U./d L [facility] Location:[facility], [address], [place], [address] [facility] POINT OF CARE [facility] Examination level ultrasound on 12-05-2023 Indication Standard anatomic survey, follow up circumvallate placenta from outside scan Impression The patient is referred for a detailed anatomic survey. - Single, live, intrauterine . - biometry is consistent with the established gestational age. - No malformations were visualized on a complete detailed anatomic survey. - The amniotic fluid volume is normal amount. - The placenta is anterior, possibly circumvallate although this needs to be confirmed after delivery as ultrasound alone is not diagnostic. - The Transabdominal cervical length measures 47 mm with no evidence of funneling or other dynamic changes. - Not all structural malformations can be detected by ultrasound examination. Recommendations Additional follow-up as clinically indicated. Maternal Assessment Height 5 cm Height (ft) 0 ft Height (in) 2 in Physical Exam Initial weight (lb) 115 lb Initial BMI 23.00 kg/m Method Transabdominal ultrasound examination. View: Adequate visualization [place] . Number of fetuses: 1 Dating LMP on: 06/21/2023 GA by LMP 23 w + 6 d CHRISTIE by LMP: 03/27/2024 Ultrasound examination on: 12/05/2023 GA by U/S based upon: AC, BPD, Femur, HC GA by U/S 24 w + 3 d CHRISTIE by U/S: 03/23/2024 Assigned: based on the LMP, selected on 12/05/2023 Assigned GA 23 w + 6 d Assigned CHRISTIE: 03/27/2024 General Evaluation Cardiac activity present. FHR 161 bpm. movements: present. Presentation: breech Placenta: Placental site: anterior, circumvallate Umbilical cord: Cord vessels: 3 vessel cord, normal insertion Amniotic fluid: Amount of AF: normal amount. MVP 5.0 cm Growth Overview Exam date GA BPD (mm) HC (mm) AC (mm) FL (mm) HL (mm) EFW (g) 12/05/2023 23w 6d 60.3 70% 224.6 64% 205.7 80% 40.7 38% 39.6 48% 688 65% Biometry Standard BPD 60.3 mm 24w 4d 70% Hadlock OFD 79.9 mm 24w 2d 80% Nicolaides HC 224.6 mm 24w 2d 64% Cecilia Cerebellum tr 26.6 mm 23w 6d 68% Hill AC 205.7 mm 25w 1d 80% Hadlock Femur 40.7 mm 23w 3d 38% Cecilia Humerus 39.6 mm 24w 1d 48% Cecilia EFW 688 g 24w 1d 65% Hadlock EFW (lb) 1 lb EFW (oz) 8 oz EFW by: Hadlock (HC-AC-FL) Extended Statistical Consultant 7.5 mm CM 8.5 mm 97% Nicolaides Nasal bone 8.6 mm Extremities / Bony Struc FL / HC 0.18 Other Structures FHR 161 bpm Anatomy Cranium: normal Lateral ventricles: normal Choroid plexus: normal Midline falx: normal Cavum septi pellucidi: normal Cerebellum: normal Cisterna magna: normal Head / Neck Vermis: Normal but not required for a standard anatomy exam Neck: Normal but not required for a standard anatomy exam Nuchal fold: Normal but not required for a standard anatomy exam Lips: normal Profile: Normal but not required for a standard anatomy exam Nose: Normal but not required for a standard anatomy exam Face Maxilla: Normal but not required for a standard anatomy exam Mandible: Normal but not required for a standard anatomy exam Orbits: Normal but not required for a standard anatomy exam Lens: Normal but not required for a standard anatomy exam 4-chamber view: normal RVOT view: normal LVOT view: normal 3-vessel view: normal 6-dvvbck-gbobrdu view: normal Heart / Thorax Situs: situs solitus (normal) Aortic arch view: Normal but not required for a standard anatomy exam SVC: Normal but not required for a standard anatomy exam IVC: Normal but not required for a standard anatomy exam Cardiac axis: normal Rt lung: Normal but not required for a standard anatomy exam Lt lung: Normal but not required for a standard anatomy exam Diaphragm: Normal but not required for a standard anatomy exam Cord insertion: normal Stomach: normal Kidneys: normal Bladder: normal Genitals: normal Abdomen Abdom. wall: normal Cervical spine: normal Thoracic spine: normal Lumbar spine: normal Sacral spine: normal Arms: normal Legs: normal Rt upper arm: normal Rt forearm: normal Rt hand: normal Rt fingers: normal Lt upper arm: normal Lt forearm: normal Lt hand: normal Lt fingers: normal Rt upper leg: normal Rt lower leg: normal Rt foot: normal Lt upper leg: normal Lt lower leg: normal Lt foot: normal Maternal Structures Uterus / Cervix Uterus: Visualized Cervix: Visualized Approach: Transabdominal Cervical length 47.0 mm Ovaries / Tubes / Adnexa Rt ovary: Visualized Rt ovary morphology: normal Lt ovary: Visualized Lt ovary morphology: normal Performed By: Remedios Granger RDMS Read By: Marley Elizalde M.D. MATERNAL MEDICINE [facility] Radiology Study observation (narrative) Cameron pruitt [facility] CBC W Auto Differential pane l (Bld)on 11-12-2023 Basophils (Bld) [#/Vol] 10*3/uL Normal <0.11 [place] Comment on above: Order Comment: Speci men Type: BLOOD SPECIMEN Ordering Facility: [facility] Address: [address] [place], [place] [address] Performed By: #### 5 7021-8 #### [facility] CLIA [id number] [address] [place] [address] [facility] Basophils/100 WBC (Bld) 0.2 % Normal [place] Comment on above: Order Comment: Speci men Type: BLOOD SPECIMEN Ordering Facility: [facility] Address: [address] [place] [address] Performed By: #### 5 7021-8 #### [facility] CLIA [id number] [address] [place] [address] [facility] [place] Differential cell count method Nom (Bld) Auto Normal [facility] Comment on above: Order Comment: Speci men Type: BLOOD SPECIMEN Ordering Facility: [facility] Address: [address] [place] [address] Performed By: #### 5 7021-8 #### [facility] CLIA [id number] [address] [place] [address] [place] Eosinophils (Bld) [#/Vol] 0.24 10*3/uL Normal <0.46 [facility] Comment on above: Order Comment: Speci men Type: BLOOD SPECIMEN Ordering Facility: [facility] Address: [address] [place] [address] Performed By: #### 5 7021-8 #### [facility] CLIA [id number] [address] [place] [address] [facility] Eosinophils/100 WBC (Bld) 2.5 % Normal [facility] Comment on above: Order Comment: Speci men Type: BLOOD SPECIMEN Ordering Facility: [facility] Address: [address] [place] [address] Performed By: #### 5 7021-8 #### [facility] CLIA [id number] [address] [place] [address] [facility] [place] Erythrocyte distribution width (RBC) [Ratio] 12.7 % Normal 11.5-15.0 [facility] Comment on above: Order Comment: Speci men Type: BLOOD SPECIMEN Ordering Facility: [facility] Address: [address] [place] [address] Performed By: #### 5 7021-8 #### [facility] CLIA [id number] [address] [place] [address] [place] Hematocrit (Bld) [Volume fraction] 32.6 % Low 36.0-46.0 [facility] Comment on above: Order Comment: Speci men Type: BLOOD SPECIMEN Ordering Facility: [facility] Address: [address] [place] [address] Performed By: #### 5 7021-8 #### [facility] CLIA [id number] [address] [place] [address] [place] Hemoglobin (Bld) [Mass/Vol] 11.1 g/dL Low 11.5-15.5 [facility] Comment on above: Order Comment: Speci men Type: BLOOD SPECIMEN Ordering Facility: [facility] Address: [address] [place] [address] Performed By: #### 5 7021-8 #### [facility] CLIA [id number] [address] [place] [address] [place] Immature granulocytes (Bld) [#/Vol] 10*3/uL Normal <0.10 [facility] Comment on above: Order Comment: Speci men Type: BLOOD SPECIMEN Ordering Facility: [facility] Address: [address] [place] [address] Performed By: #### 5 7021-8 #### [facility] CLIA [id number] [address] [place] [address] [place] Immature granulocytes/100 WBC (Bld) 0.1 % Normal [facility] Comment on above: Order Comment: Speci men Type: BLOOD SPECIMEN Ordering Facility: [facility] Address: [address] [place] [address] Performed By: #### 5 7021-8 #### [facility] CLIA [id number] [address] [place] [address] [place] Lymphocytes (Bld) [#/Vol] 1.67 10*3/uL Normal 1.00-4.00 [facility] Comment on above: Order Comment: Speci men Type: BLOOD SPECIMEN Ordering Facility: [facility] Address: [address] [place] [address] Performed By: #### 5 7021-8 #### [facility] CLIA [id number] [address] [place] [address] [facility] Lymphocytes/100 WBC (Bld) 17.7 % Normal [facility] Comment on above: Order Comment: Speci men Type: BLOOD SPECIMEN Ordering Facility: [facility] Address: [address] [place] [address] Performed By: #### 5 7021-8 #### [facility] CLIA [id number] [address] [place] [address] [place] MCH (RBC) [Entitic mass] 31.2 pg Normal 26.0-34.0 [facility] Comment on above: Order Comment: Speci men Type: BLOOD SPECIMEN Ordering Facility: [facility] Address: [address] [place] [address] Performed By: #### 5 7021-8 #### [facility] CLIA [id number] [address] [place] [address] [place] MCHC (RBC) [Mass/Vol] 34.0 g/dL Normal 30.5-36.0 [facility] Comment on above: Order Comment: Speci men Type: BLOOD SPECIMEN Ordering Facility: [facility] Address: [address] [place] [address] Performed By: #### 5 7021-8 #### [facility] CLIA [id number] [address] [place] [address] [place] MCV (RBC) [Entitic vol] 91.6 fL Normal 80.0-100.0 [facility] Comment on above: Order Comment: Speci men Type: BLOOD SPECIMEN Ordering Facility: [facility] Address: [address] [place] [address] Performed By: #### 5 7021-8 #### [facility] CLIA [id number] [address] [place] [address] [place] Monocytes (Bld) [#/Vol] 0.85 10*3/uL Normal <0.87 [facility] Comment on above: Order Comment: Speci men Type: BLOOD SPECIMEN Ordering Facility: [facility] Address: [address] [place] [address] Performed By: #### 5 7021-8 #### [facility] CLIA [id number] [address] [place] [address] [place] Monocytes/100 WBC (Bld) 9.0 % Normal [facility] [place] Comment on above: Order Comment: Speci men Type: BLOOD SPECIMEN Ordering Facility: [facility] Address: [address] [place] [address] Performed By: #### 5 7021-8 #### [facility] CLIA [id number] [address] [place] [address] [place] Neutrophils (Bld) [#/Vol] 6.66 10*3/uL Normal 1.45-7.50 [facility] Comment on above: Order Comment: Speci men Type: BLOOD SPECIMEN Ordering Facility: [facility] Address: [address] [place] [address] Performed By: #### 5 7021-8 #### [facility] CLIA [id number] [address] [place] [address] [place] Neutrophils/100 WBC (Bld) 70.5 % Normal [facility] Comment on above: Order Comment: Speci men Type: BLOOD SPECIMEN Ordering Facility: [facility] Address: [address] [place] [address] Performed By: #### 5 7021-8 #### [facility] CLIA [id number] [address] [place] [address] [place] Nucleated RBC (Bld) [#/Vol] Normal [facility] Comment on above: Order Comment: Speci men Type: BLOOD SPECIMEN Ordering Facility: [facility] Address: [address] [place] [address] Performed By: #### 5 7021-8 #### [facility] CLIA [id number] [address] [place] [address] [place] Nucleated RBC/100 WBC (Bld) [Ratio] Normal [facility] Comment on above: Order Comment: Speci men Type: BLOOD SPECIMEN Ordering Facility: [facility] Address: [address] [place] [address] Performed By: #### 5 7021-8 #### [facility] CLIA [id number] [address] [place] [address] [place] Platelet mean volume (Bld) [Entitic vol] 10.7 fL Normal 9.0-12.7 [facility] Comment on above: Order Comment: Speci men Type: BLOOD SPECIMEN Ordering Facility: [facility] Address: [address] [place] [address] Performed By: #### 5 7021-8 #### [facility] CLIA [id number] [address] [place] [address] [place] Platelets (Bld) [#/Vol] 143 10*3/uL Low 150-400 [facility] Comment on above: Order Comment: Speci men Type: BLOOD SPECIMEN Ordering Facility: [facility] Address: [address] [place] [address] Performed By: #### 5 7021-8 #### [facility] CLIA [id number] [address] [place] [address] [place] RBC (Bld) [#/Vol] 3.56 10*6/uL Low 3.90-5.20 [facility] Comment on above: Order Comment: Speci men Type: BLOOD SPECIMEN Ordering Facility: [facility] Address: [address] [place] [address] Performed By: #### 5 7021-8 #### [facility] CLIA [id number] [address] [place] [address] [place] WBC (Bld) [#/Vol] 9.45 10*3/uL Normal 3.70-11.00 [facility] Comment on above: Order Comment: Speci men Type: BLOOD SPECIMEN Ordering Facility: [facility] Address: [address] [place] [address] Performed By: #### 5 7021-8 #### [facility] CLIA [id number] [address] [facility] [place] [address] [facility] Comprehensive metabolic 2000 panelon 11-12-2023 Albumin [Mass/Vol] 3.2 g/dL Low 3.9-4.9 [facility] Comment on above: Order Comment: Speci men Type: BLOOD SPECIMEN Ordering Facility: [facility] Address: [address] [place] [address] Performed By: #### 2 4323-8, 3040-3 #### [facility] CLIA [id number] [address] [place] [address] [place] ALP [Catalytic activity/Vol] 79 U/L Normal 34-123 [facility] Comment on above: Order Comment: Speci men Type: BLOOD SPECIMEN Ordering Facility: [facility] Address: [address] [place] [address] Performed By: #### 2 4323-8, 3040-3 #### [facility] CLIA [id number] [address] [place] [address] [facility] ALT With P-5'-P [Catalytic activity/Vol] 11 U/L Normal 7-38 [facility] Comment on above: Order Comment: Speci men Type: BLOOD SPECIMEN Ordering Facility: [facility] Address: [address] [place], [place] [address] Performed By: #### 2 4323-8, 3040-3 #### [facility] CLIA [id number] [address] [place] [address] [place] Anion gap [Moles/Vol] 10 mmol/L Normal 8-15 [facility] Comment on above: Order Comment: Speci men Type: BLOOD SPECIMEN Ordering Facility: [facility] Address: [address] [place] [address] Performed By: #### 2 4323-8, 3040-3 #### [facility] CLIA [id number] [address] [place] [address] [place] AST With P-5'-P [Catalytic activity/Vol] 14 U/L Normal 13-35 [facility] Comment on above: Order Comment: Speci men Type: BLOOD SPECIMEN Ordering Facility: [facility] Address: [address] [place] [address] Performed By: #### 2 4323-8, 3040-3 #### [facility] CLIA [id number] [address] [place] [address] [place] Bilirubin [Mass/Vol] mg/dL Low 0.2-1.3 [facility] Comment on above: Order Comment: Speci men Type: BLOOD SPECIMEN Ordering Facility: [facility] Address: [address] [place] [address] Performed By: #### 2 4323-8, 0-3 #### [facility] CLIA [id number] [address] [place] [address] [place] Calcium [Mass/Vol] 8.4 mg/dL Low 8.5-10.2 [facility] Comment on above: Order Comment: Speci men Type: BLOOD SPECIMEN Ordering Facility: [facility] Address: [address] [place] [address] Performed By: #### 2 4323-8, 0-3 #### [facility] CLIA [id number] [address] [place] [address] [place] Chloride [Moles/Vol] 106 mmol/L Normal 98-107 [facility] Comment on above: Order Comment: Speci men Type: BLOOD SPECIMEN Ordering Facility: [facility] Address: [address] [place] [address] Performed By: #### 2 4323-8, 3040-3 #### [facility] CLIA [id number] [address] [place] [address] [place] CO2 [Moles/Vol] 22 mmol/L Normal 22-30 [facility] Comment on above: Order Comment: Speci men Type: BLOOD SPECIMEN Ordering Facility: [facility] Address: [address] [place] [address] Performed By: #### 2 4323-8, 3040-3 #### [facility] CLIA [id number] [address] [place] [address] [place] Creatinine [Mass/Vol] 0.43 mg/dL Low 0.58-0.96 [facility] Comment on above: Order Comment: Speci men Type: BLOOD SPECIMEN Ordering Facility: [facility] Address: [address] [place] [address] Performed By: #### 2 4323-8, 3039-3 #### [facility] CLIA [id number] [address] [place] [address] [place] [facility] Creatinine and Glomerular filtration rate.predicted panel (S/P/Bld) 139 mL/min/1.73m??? Normal >=60 [facility] Comment on above: Order Comment: Speci men Type: BLOOD SPECIMEN Ordering Facility: [facility] Address: [address] [place] [address] Result Comment: Kenyatta mated Glomerular Filtration Rate (eGFR) is calculated using the 2020 CKD-EPI creatinine equation. This equation utilizes serum creatinine, sex, and age as parameters. The creatinine assay has traceable calibration to isotope dilution-mass spectrometry. Refer to KDIGO guidelines for clinical interpretation. In patients with unstable renal function, e.g. those with acute kidney injury, the eGFR may not accurately reflect actual GFR. Performed By: #### 2 4323-8, 0-3 #### [facility] CLIA [id number] [address] [place] [address] [place] Glucose [Mass/Vol] 80 mg/dL Normal 74-99 [facility] Comment on above: Order Comment: Speci men Type: BLOOD SPECIMEN Ordering Facility: [facility] Address: [address] [place] [address] Result Comment: The [place] Diabetes Association (ADA) provides guidance for cutoff values for fasting glucose and random glucose. The ADA defines fasting as no caloric intake for at least 8 hours. Fasting plasma glucose results between 100 to 125 mg/dL indicate increased risk for diabetes (prediabetes). Fasting plasma glucose results greater than or equal to 126 mg/dL meet the criteria for diagnosis of diabetes. In the absence of unequivocal hyperglycemia, results should be confirmed by repeat testing. In a patient with classic symptoms of hyperglycemia or hyperglycemic crisis, random plasma glucose results greater than or equal to 200 mg/dL meet the criteria for diagnosis of diabetes. Reference: Standards of Medical Care in Diabetes 2016, [place] [employer] Association. Diabetes Care. 2016.39(Suppl 1). Performed By: #### 2 4323-8, 3040-3 #### [facility] CLIA [id number] [address] [place] [address] [place] Potassium [Moles/Vol] 3.6 mmol/L Low 3.7-5.1 [facility] Comment on above: Order Comment: Alphonse herrera Type: BLOOD SPECIMEN Ordering Facility: [facility] Address: [address] [place] [address] Performed By: #### 2 43238, 0-3 #### [facility] CLIA [id number] [address] [place] [address] [place] Protein [Mass/Vol] 5.9 g/dL Low 6.3-8.0 [facility] Comment on above: Order Comment: Alphonse herrera Type: BLOOD SPECIMEN Ordering Facility: [facility] Address: [address] [place] [address] Performed By: #### 2 43238, 0-3 #### [facility] CLIA [id number] [address] [place] [address] [place] Sodium [Moles/Vol] 138 mmol/L Normal 136-144 [facility] Comment on above: Order Comment: Alphonse men Type: BLOOD SPECIMEN Ordering Facility: [facility] Address: [address] [place] [address] Performed By: #### 2 4323-8, 3040-3 #### [facility] CLIA [id number] [address] [place] [address] [facility] Urea nitrogen [Mass/Vol] 6 mg/dL Low 7-21 [facility] Comment on above: Order Comment: Speci men Type: BLOOD SPECIMEN Ordering Facility: [facility] Address: [facility] [place] [address] Performed By: #### 2 4323-8, 3040-3 #### [facility] CLIA [id number] [address] [place] [address] [facility] ED NOTEon 11-12-2023 ED NOTE HNO ID: [id number] Author: RIA CLAYTON RN Service: Emergency Medicine Author Type: Registered Nurse Type: ED Notes Filed: 11/12/2023 21:20 Note Text: Patient transferring by private vehicle at this time with patient's significant other to [facility] OB Triage at this time. [facility] ED NOTE HNO ID: [id number] Author: RIA CLAYTON RN Service: Emergency Medicine Author Type: Registered Nurse Type: ED Notes Filed: 11/12/2023 21:21 Note Text: Patient informed about the name of the medication(s), what the medication(s) is(are) for, and what to expect with/from med administration. Patient given opportunity to ask questions. Medication(s) include: Rocephin [facility] ED NOTE HNO ID: [id number] Author: RIA CLAYTON RN Service: Emergency Medicine Author Type: Registered Nurse Type: ED Notes Filed: 11/12/2023 19:29 Note Text: Change of shift report received from Terrie Fleming RN. I assumed patient care at this time. [facility] ED NOTE HNO ID: [id number] Author: TERRIE KING RN Service: ? Author Type: Registered Nurse Type: ED Notes Filed: 11/12/2023 19:16 Note Text: Report to a janna clayton [facility] ED NOTE HNO ID: [id number] Author: TERRIE KING RN Service: ? Author Type: Registered Nurse Type: ED Notes Filed: 11/12/2023 19:00 Note Text: heart tones obtained at lower abd and rate of 150 Normal [facility] ED PROV NOTEon 11-12-2023 ED PROV NOTE HNO ID: [id number] Author: APPLE CUMMINGS MD Service: Emergency Medicine Author Type: Physician Type: ED Provider Notes Filed: 11/12/2023 23:47 Note Text: ED Provider Note Patient Name: Kimani Owens : 2000 SERVICE DATE: 11/12/23 History Patient presents with: Abdominal Pain Flank Pain Patient is a 23-year-old female with history of recurrent UTIs, 20 weeks with her OB at [facility] presenting to the emergency room for evaluation of right-sided flank pain. States she had dysuria and change in smell of her urine yesterday saw her urologist today and was started on Keflex. She developed the flank pain acutely this afternoon. Associated with nausea however she has been nauseous throughout the . She only rarely feels baby move which is not atypical for her. No gush of fluid or abnormal vaginal bleeding. States that she had a normal anatomy scan very recently. She denies falls or trauma. No rashes or wounds. No drugs alcohol or smoking. G4, P2 with 1 miscarriage in her last . No reported fevers or chills. Denies other acute sick symptoms. Does have a history of laparoscopy for endometriosis. No history of appendectomy or cholecystectomy. Rates pain as 5 or 6 out of 10, without radiation. No loss of appetite. Does not want analgesia at this time. PAST MEDICAL HISTORY Diagnosis Date - Depression with anxiety - Endometriosis 11/27/2018 Minimal PAST SURGICAL HISTORY Procedure Laterality Date - LAPAROSCOPY DIAGNOSTIC 11/27/2018 Minimal endometriosis FAMILY HISTORY Problem Relation Age of Onset - Hypertension Father - Diabetes Father - Hypertension Paternal Grandmother - other (lupus) Mother - No Known Problems Brother - No Known Problems Brother - No Known Problems Brother Social History Tobacco Use - Smoking status: Former Types: Cigarettes - Smokeless tobacco: Former Types: Chew Vaping Use - Vaping Use: current everyday user Substance and Sexual Activity - Alcohol use: Never - Drug use: Never - Sexual activity: Yes ALLERGIES No Known Allergies Review of Systems Constitutional: Negative for activity change, chills and fever. HENT: Negative for ear discharge and ear pain. Eyes: Negative for pain and discharge. Respiratory: Negative for cough and shortness of breath. Cardiovascular: Negative for chest pain and palpitations. Gastrointestinal: Positive for abdominal pain and nausea. Negative for diarrhea and vomiting. Genitourinary: Positive for dysuria and flank pain. Negative for pelvic pain, vaginal bleeding and vaginal discharge. Musculoskeletal: Negative for back pain and neck pain. Skin: Negative for color change, rash and wound. Neurological: Negative for dizziness, seizures and numbness. Psychiatric/Behaviora l: Negative for self-injury and suicidal ideas. Physical Exam Vitals [11/12/23 1836] BP Pulse Temp Temp src Resp SpO2 Weight Height 115/77 (!) 93 36.3 ?C (97.3 ?F) Temporal 16 99 % 63.5 kg (140 lb) -- Physical Exam Vitals and nursing note reviewed. Constitutional: General: She is not in acute distress. Appearance: She is well-developed. She is not diaphoretic. Comments: Patient well-appearing sitting up in bed, nontoxic well-appearing HENT: Head: Normocephalic and atraumatic. Right Ear: External ear normal. Left Ear: External ear normal. Nose: Nose normal. Mouth/Throat: Mouth: Mucous membranes are moist. Pharynx: No oropharyngeal exudate or posterior oropharyngeal erythema. Eyes: General: No scleral icterus. Right eye: No discharge. Left eye: No discharge. Pupils: Pupils are equal, round, and reactive to light. Cardiovascular: Rate and Rhythm: Normal rate and regular rhythm. Heart sounds: Normal heart sounds. No murmur heard. No friction rub. No gallop. Pulmonary: Effort: Pulmonary effort is normal. No respiratory distress. Breath sounds: Normal breath sounds. No stridor. No wheezing or rales. Chest: Chest wall: No tenderness. Abdominal: Palpations: Abdomen is soft. Tenderness: There is abdominal tenderness in the right lower quadrant. There is right CVA tenderness. There is no left CVA tenderness, guarding or rebound. Negative signs include Keane's sign, Rovsing's sign and McBurney's sign. Comments: Gravid abdomen Musculoskeletal: General: No tenderness or deformity. Normal range of motion. Cervical back: Normal range of motion and neck supple. Skin: General: Skin is warm and dry. Capillary Refill: Capillary refill takes less than 2 seconds. Findings: No rash. Neurological: General: No focal deficit present. Mental Status: She is alert and oriented to person, place, and time. Cranial Nerves: No cranial nerve deficit. Sensory: No sensory deficit. Motor: No weakness. Psychiatric: Mood and Affect: Mood normal. Behavior: Behavior normal. Diagnostic Testing ED Labs Ordered and Reviewed - No data to display Pr (more content not included)... Normal [facility] HCG Preg Ur Qlon 11-12-2023 HCG ( test) Ql (U) Positive Abnormal Negative [facility] Comment on above: Order Comment: Alphonse herrera Type: URINE SPECIMEN Ordering Facility[facility] Address: [address] [place] [address] Result Comment: This test is intended to aid in the early detection of . Very dilute urine samples, as indicated by a low specific gravity, may not contain brewery representative levels of hCG. This test detects intact hCG only. This test does not reliably detect hCG degradation products, including free-beta subunit and beta-core fragment. Therefore, this test may show reduced reactivity in urine after 8 weeks gestation. A number of conditions other than , including trophoblastic disease and certain non-trophoblastic neoplasms cause elevated levels of hCG. As with any assay employing mouse antibodies, the possibility exists for interference by human anti-mouse antibodies (HAMA) in the specimen. The test provides a presumptive diagnosis for . Performed By: #### 2 106-3 #### [facility] CLIA [id number] [address] [place] [address] [place] Lipase SerPl-cCncon 11-12-19 24 Lipase [Catalytic activity/Vol] 26 U/L Normal 16-61 [facility] Comment on above: Order Comment: Alphonse herrera Type: BLOOD SPECIMEN Ordering Facility: [facility] Address: [address] [place] [address] Performed By: #### 2 4323-8, 3040-3 #### [facility] CLIA [id number] [address] [place] [address] [place] Urinalysis complete pnl Uron 11-12-2023 Urinalysis complete panel (U) COLOR: Yellow CLARITY: Slightly Cloudy GLUCOSE, URINE: Negative BILIRUBIN, URINE: Negative KETONES, URINE: Negative SPECIFIC GRAVITY, UR: 1.025 HEMOGLOBIN/BLOOD, UR: Negative PH, URINE: 6.5 PROTEIN, URINE: Negative UROBILINOGEN: 0.2 EU/dL NITRITES: Negative LEUKEST: Trace WBC, URINE: 11-25 /HPF RBC, URINE: 0-3 /HPF BACTERIA: Few SQUAMOUS EPITHELIAL CELLS: Moderate CULTURE, URINE: No growth (<1,000 CFU/ml) Abnormal [facility] Comment on above: Order Comment: Speci men Type: URINE SPECIMEN Ordering Facility[facility] Address: [address] [place] [address] Performed By: #### 2 4356-8 #### [facility] CLIA [id number] [address] [facility] CLIA [id number] [address] Absolute lymphocyte countOrd ered By: Neda Ramos on 08-30-2023 Lymphocytes Auto (Unsp spec) [#/Vol] 1.70 10*3/uL 0.83-4.51 [facility] Automated lymphocyte count a s percentage of total leukocytesOrdered By: Neda Ramos on 08-30-2023 Lymphocytes/100 WBC Auto (Unsp spec) 17.8 % 19-41 [facility] Basophil percentageOrdered B y: Neda Ramos on 08-30-2023 Basophils/100 WBC (Bld) 0.5 % 0-1 [facility] Eosinophils/100 WBC (Bld) 5.7 % 0-5 [facility] Hemoglobin (Bld) [Mass/Vol] 12.3 g/dL 12.0-15.0 [facility] Monocytes/100 WBC (Bld) 6.4 % 0-10 [facility] Neutrophils (Bld) [#/Vol] 6.6 10*3/uL 2.0-7.7 [facility] Neutrophils/100 WBC (Bld) 69.2 % 47-70 [facility] WBC (Bld) [#/Vol] 9.5 10*3/uL 4.4-11.0 [facility] Determination of erythrocyte mean corpuscular volume (MCV)Ordered By: Neda Ramos on 08-30-2023 MCV (RBC) [Entitic vol] 88.1 fL 81-99 [facility] Erythrocyte distribution wid th ratioOrdered By: Neda Ramos on 08-30-2023 Erythrocyte distribution width (RBC) [Ratio] 12.2 % 11.6-14.6 [facility] Erythrocyte distribution wid th standard deviationOrdered By: Neda Ramos on 08-30-2023 Erythrocyte distribution width (RBC) [Entitic vol] 39.8 fL 35.1-43.9 [facility] HIV 1 and HIV-2 antibody ass ay with HIV-1 p24 antigen detectionOrdered By: Neda Ramos on 08-30-2023 HIV 1+2 Ab+HIV1 p24 Ag IA Ql Non-Reactive Nonreactive [facility] Hematocrit Auto (Bld) [Volum e fraction]Ordered By: Neda Ramos on 08-30-2023 Hematocrit (Bld) [Volume fraction] 36.2 % 37-47 [facility] Immature granulocytes/100 WB C Auto (Bld)Ordered By: Neda Ramos on 08-30-2023 Immature granulocytes/100 WBC (Bld) 0.400 % 0.0-0.9 [facility] Comment on above: IG% - Immature Granu locytes (promyelocytes, myelocytes and metamyelocytes) > 1% indicates that a LEFT SHIFT is Present. Laboratory - Hematology and Cell countsOrdered By: Neda Ramos on 08-30-2023 MCH (RBC) [Entitic mass] 29.9 pg 27.0-32.0 [facility] MCHC (RBC) [Mass/Vol] 34.0 g/dL 32-36 [facility] Nucleated RBC/100 WBC (Bld) [Ratio] 0 % 0-5 [facility] Platelet mean volume (Bld) [Entitic vol] 10.8 fL 6.2-12.0 [facility] Platelets (Bld) [#/Vol] 142 10*3/uL 150-450 [facility] No Panel InformationOrdered By: Neda Ramos on 08-30-2023 Hepatitis B Surface Antigen Non-Reactive Nonreactive [facility] Hepatitis C Antibody Non-Reactive Nonreactive [facility] Comment on above: Non Reactive: < 0.8 Equivocal: >/= 0.8 to < 1.0 Reactive: >/= 1.0The CDC requires that a reactive/equivocal HCV antibody result be sent out for confirmation. HCV Quant by PCR testing. Miscellaneous Test Comment SEE SCANNED REPORT [facility] Rubella IgG Antibody Reactive Nonreactive [facility] Comment on above: Antibody Results Int erpretation of Immune Status Non Reactive Presumed Non-Immune Equivocal Equivocal Reactive Presumed Immune RBC Auto (Bld) [#/Vol]Ordere d By: Neda Ramos on 08-30-2023 RBC (Bld) [#/Vol] 4.11 10*6/uL 4.2-5.4 [facility] Serum Treponema species anti body detectionOrdered By: Neda Ramos on 08-30-2023 Treponema sp Ab Ql (S) Non-Reactive [facility] Laboratory - Chemistry and C hemistry - challengeon 08-23-2023 Glucose Ql (U) Negative [facility] Comment on above: Office Urine Glucose previously reported as Negative Laboratory - Urinalysison Protein Ql (U) Trace [facility] Comment on above: Office Urine Protein previously reported as Negative Cervical or vagninal specime n microscopic examination by cytology stain (reported asOrdered By: Neda Ramos on 08-15-2023 Cytology report Cyto stain Doc (Cvx/Vag) Comment . [facility] Comment on above: The Pap smear is a s creening test designed to aid in thedetection of premalignant and malignant conditions of theuterine cervix. It is not a diagnostic procedure andshould not be used as the sole means of detecting cervicalcancer. Both false-positive and false-negative reports dooccur. Chlamydia trachomatis rRNA d etection by probe and target amplification methodOrdered By: Neda Ramos on 08-15-2023 C. trachomatis rRNA ASHLIE+probe Ql (Unsp spec) Negative Negative [facility] Culture, urineOrdered By: Roc Ramos on 08-15-2023 Bacteria identified Cx Nom (U) Escherichia coli [facility] Laboratory - CytologyOrdered By: Neda Ramos on 08-15-2023 Air Hose Coupler Cyto stain Nom (Cvx/Vag) [ID] Comment . [facility] Comment on above: Cathi Cruz, Cyto technologist (ASCP) Laboratory - Microbiology an d Antimicrobial susceptibilityOrdered By: Neda Ramos on 08-15-2023 N. gonorrhoeae DNA ASHLIE+probe Ql (Unsp spec) Negative Negative [facility] Comment on above: Performed at: =G - [facility] [address] [id number] Director: Nellie Veloz MD, Phone: [phone] Laboratory - Miscellaneous t estsOrdered By: Neda Ramos on 08-15-2023 Service comment (Unsp spec) [Interp] . . [facility] No Panel InformationOrdered By: Neda Ramos on 08-15-2023 Human Papillomavirus Screen Comment . [facility] Comment on above: The HPV DNA reflex c hernesto were not met with this specimenresult therefore, no HPV testing was performed.Performed at: WB - [facility] [address] [id number] Director: Nellie Veloz MD, Phone: [phone] Thin prep Papanicolaou smear with manual screeningOrdered By: Neda Ramos on 08-15-2023 Thin prep Papanicolaou smear with manual screening Comment . [facility] Comment on above: NEGATIVE FOR INTRAEP ITHELIAL LESION OR MALIGNANCY. This liquid based Th inPrep(R) pap test was screened withthe use of an image guided system. Serum or plasma choriogonado tropin detectionOrdered By: Palmira Oliva on 08-12-2023 HCG ( test[place] [address] mIU/mL <4 [facility] Comment on above: hCG levels with Gest ational AgeGestational Age hCG mIU/mL (IU/L)0.2 - 1 week 5 - 501-2 weeks 50 - 5002-3 weeks 100 - 73553-2 weeks 500 - 161900-2 weeks 1000 - 919595-0 weeks 21855 - 100,0006-8 weeks 89767 - 200,0002-3 months 03229 - 100,000 Absolute lymphocyte countOrd ered By: Palmira Henao on 07-29-2023 Lymphocytes Auto (Unsp spec) [#/Vol] 2.16 10*3/uL 0.83-4.51 [facility] Automated lymphocyte count a s percentage of total leukocytesOrdered By: Palmira Henao on 07-29-2023 Lymphocytes/100 WBC Auto (Unsp spec) 35.4 % 19-41 [facility] Basophil percentageOrdered B y: Palmira Henao on 07-29-2023 Basophil percentage 0-5 SEEN /hpf 0-5 [facility] Basophils/100 WBC (Bld) 0.8 % 0-1 [facility] Chloride [Moles/Vol] 111 mmol/L 98-107 [facility] Eosinophils/100 WBC (Bld) 1.6 % 0-5 [facility] Glucose [Mass/Vol] 79 mg/dL 74-106 [facility] Hemoglobin (Bld) [Mass/Vol] 13.9 g/dL 12.0-15.0 [facility] Monocytes/100 WBC (Bld) 6.1 % 0-10 [facility] Neutrophils (Bld) [#/Vol] 3.4 10*3/uL 2.0-7.7 [facility] Neutrophils/100 WBC (Bld) 55.9 % 47-70 [facility] Potassium [Moles/Vol] 3.8 mmol/L 3.5-5.1 [facility] Comment on above: Moderate Hemolysis, Result may be falsely increased. Sodium [Moles/Vol] 140 mmol/L 136-145 [facility] WBC (Bld) [#/Vol] 6.1 10*3/uL 4.4-11.0 [facility] Bilirubin Test strip Ql (U)O rdered By: Palmira Henao on 07-29-2023 Bilirubin Ql (U) Negative Negative [facility] Determination of erythrocyte mean corpuscular volume (MCV)Ordered By: Palmira Henao on 07-29-2023 MCV (RBC) [Entitic vol] 88.9 fL 81-99 [facility] Erythrocyte distribution wid th ratioOrdered By: Palmira Henao on 07-29-2023 Erythrocyte distribution width (RBC) [Ratio] 11.8 % 11.6-14.6 [facility] Erythrocyte distribution wid th standard deviationOrdered By: Palmira Henao on 07-29-2023 Erythrocyte distribution width (RBC) [Entitic vol] 37.3 fL 35.1-43.9 [facility] Hematocrit Auto (Bld) [Volum e fraction]Ordered By: Palmira Henao on 07-29-2023 Hematocrit (Bld) [Volume fraction] 40.8 % 37-47 [facility] Immature granulocytes/100 WB C Auto (Bld)Ordered By: Palmira Henao on 07-29-2023 Immature granulocytes/100 WBC (Bld) 0.200 % 0.0-0.9 [facility] Comment on above: IG% - Immature Granu locytes (promyelocytes, myelocytes and metamyelocytes) > 1% indicates that a LEFT SHIFT is Present. Ketones Test strip Ql (U)Ord ered By: Palmira Henao on 07-29-2023 Ketones Ql (U) Negative Negative [facility] Laboratory - Chemistry and C hemistry - challengeOrdered By: Palmira Henao on 07-29-2023 CO2 [Moles/Vol] 25.0 mmol/L 21.0-32.0 [facility] Urea nitrogen/Creatinine [Mass ratio] 15.9 mg/mg 10-20 [facility] Laboratory - Hematology and Cell countsOrdered By: Palmira Henao on 07-29-2023 MCH (RBC) [Entitic mass] 30.3 pg 27.0-32.0 [facility] MCHC (RBC) [Mass/Vol] 34.1 g/dL 32-36 [facility] Nucleated RBC/100 WBC (Bld) [Ratio] 0 % 0-5 [facility] Platelet mean volume (Bld) [Entitic vol] 11.3 fL 6.2-12.0 [facility] Platelets (Bld) [#/Vol] 129 10*3/uL 150-450 [facility] Mucus LM Ql (Urine sed)Order ed By: Palmira Henao on 07-29-2023 Mucus Ql (Urine sed) 0 SEEN /hpf [facility] Nitrite Test strip Ql (U)Ord ered By: Palmira Henao on 07-29-2023 Nitrite Ql (U) Negative Negative [facility] No Panel InformationOrdered By: Palmira Henao on 07-29-2023 Urine RBC 0 SEEN /hpf 0-5 [facility] Estimated Creatinine Clearance Calc 149.00 ml/min [facility] Estimated GFR (MDRD) Amer 193 mL/min >60 [facility] Comment on above: GFR Calc Estimated GFR (MDRD) Non-Af Amer 159 mL/min >60 [facility] Comment on above: Non- GFR Calc Protein Test strip Ql (U)Ord ered By: Palmira Henao on 07-29-2023 Protein Ql (U) 30 mg/dl Negative [facility] RBC Auto (Bld) [#/Vol]Ordere d By: Palmira Henao on 07-29-2023 RBC (Bld) [#/Vol] 4.59 10*6/uL 4.2-5.4 [facility] Serum or plasma calcium leigh urement (mass/volume)Ordered By: Palmira Henao on 07-29-2023 Calcium [Mass/Vol] 8.8 mg/dL 8.5-10.1 [facility] Serum or plasma choriogonado tropin detectionOrdered By: Palmira Henao on 07-29-2023 HCG ( test) Ql 2615 mIU/mL <4 [facility] Comment on above: hCG levels with Gest ational AgeGestational Age hCG mIU/mL (IU/L)0.2 - 1 week 5 - 501-2 weeks 50 - 5002-3 weeks 100 - 56070-5 weeks 500 - 416166-2 weeks 1000 - 647247-4 weeks 14018 - 100,0006-8 weeks 31142 - 200,0002-3 months 47031 - 100,000 Serum or plasma creatinine m easurement (mass/volume)Ordered By: Palmira Henao on 07-29-2023 Creatinine [Mass/Vol] 0.50 mg/dL 0.55-1.02 [facility] Comment on above: The validity of the calculated GFR & GFRAA in patients over 70 years has not been determined. Clinical correlation is essential. Serum or plasma urea nitroge n measurement (mass/volume)Ordered By: Palmira Henao on 07-29-2023 Urea nitrogen [Mass/Vol] 8 mg/dL 7-18 [facility] Squamous epithelial cells de tection in urine sediment by light microscopyOrdered By: Palmira Henao on 07-29-2023 Epithelial cells.squamous LM Ql (Urine sed) 0-5 SEEN /hpf 5-10 [facility] Thin prep Papanicolaou smear with manual screeningOrdered By: Palmira Henao on 07-29-2023 Thin prep Papanicolaou smear with manual screening 4 5-15 [facility] Urine blood detectionOrdered By: Palmira Henao on 07-29-2023 RBC Ql (U) Negative Negative [facility] Urine clarityOrdered By: Hermelinda Henao on 07-29-2023 Clarity (U) Clear Clear [facility] Urine color determinationOrd ered By: Palmira Henao on 07-29-2023 Color (U) Yellow Yellow [facility] Urine glucose detectionOrder ed By: Palmira Henao on 07-29-2023 Glucose Ql (U) Normal mg/dl Normal [facility] Urine leukocyte esterase det ection by dipstickOrdered By: Palmira Henao on 07-29-2023 Leukocyte esterase Test strip Ql (U) 25 /ul Negative [facility] Urine pHOrdered By: Palmira Henao on 07-29-2023 pH (U) 7.0 [pH] 5.0 - 8.0 [facility] Urine sediment bacteria coun t by microscopy (number/high power field)Ordered By: Palmira Henao on 07-29-2023 Bacteria LM.HPF (Urine sed) [#/Area] 1 /[HPF] None Seen [facility] Urine specific gravity measu rementOrdered By: Palmira Henao on 07-29-2023 Specific gravity (U) [Rel density] 1.015 1.002-1.030 [facility] Urine urobilinogen measureme ntOrdered By: Palmira Henao on 07-29-2023 Urobilinogen Ql (U) 1 mg/dl Normal [facility] Serum or plasma choriogonado tropin detectionOrdered By: Toyn Gloria on 07-25-2023 HCG ( test) Ql 570 mIU/mL <4 [facility] Comment on above: hCG levels with Gest ational AgeGestational Age hCG mIU/mL (IU/L)0.2 - 1 week 5 - 501-2 weeks 50 - 5002-3 weeks 100 - 05271-4 weeks 500 - 396817-7 weeks 1000 - 234951-3 weeks 56849 - 100,0006-8 weeks 33976 - 200,0002-3 months 35924 - 100,000 Absolute lymphocyte countOrd ered By: Sandra Stone on 07-23-2023 Lymphocytes Auto (Unsp spec) [#/Vol] 2.08 10*3/uL 0.83-4.51 [facility] Automated lymphocyte count a s percentage of total leukocytesOrdered By: Sandra Stone on 07-23-2023 Lymphocytes/100 WBC Auto (Unsp spec) 37.1 % 19-41 [facility] Basophil percentageOrdered B y: Sandra Stone on 07-23-2023 Basophils/100 WBC (Bld) 0.9 % 0-1 [facility] Eosinophils/100 WBC (Bld) 3.0 % 0-5 [facility] Hemoglobin (Bld) [Mass/Vol] 13.6 g/dL 12.0-15.0 [facility] Monocytes/100 WBC (Bld) 8.4 % 0-10 [facility] Neutrophils (Bld) [#/Vol] 2.8 10*3/uL 2.0-7.7 [facility] Neutrophils/100 WBC (Bld) 50.4 % 47-70 [facility] WBC (Bld) [#/Vol] 5.6 10*3/uL 4.4-11.0 [facility] Determination of erythrocyte mean corpuscular volume (MCV)Ordered By: Sandra Stone on 07-23-2023 MCV (RBC) [Entitic vol] 88.6 fL 81-99 [facility] Erythrocyte distribution wid th ratioOrdered By: Sandra Stone on 07-23-2023 Erythrocyte distribution width (RBC) [Ratio] 11.7 % 11.6-14.6 [facility] Erythrocyte distribution wid th standard deviationOrdered By: Sandra Stone on 07-23-2023 Erythrocyte distribution width (RBC) [Entitic vol] 37.2 fL 35.1-43.9 [facility] HIV 1 and HIV-2 antibody ass ay with HIV-1 p24 antigen detectionOrdered By: Sandra Stone on 07-23-2023 HIV 1+2 Ab+HIV1 p24 Ag IA Ql Non-Reactive Nonreactive [facility] Hematocrit Auto (Bld) [Volum e fraction]Ordered By: Sandra Stone on 07-23-2023 Hematocrit (Bld) [Volume fraction] 40.5 % 37-47 [facility] Immature granulocytes/100 WB C Auto (Bld)Ordered By: Sandra Stone on 07-23-2023 Immature granulocytes/100 WBC (Bld) 0.200 % 0.0-0.9 [facility] Comment on above: IG% - Immature Granu locytes (promyelocytes, myelocytes and metamyelocytes) > 1% indicates that a LEFT SHIFT is Present. Laboratory - Hematology and Cell countsOrdered By: Sandra Stone on 07-23-2023 MCH (RBC) [Entitic mass] 29.8 pg 27.0-32.0 [facility] MCHC (RBC) [Mass/Vol] 33.6 g/dL 32-36 [facility] Nucleated RBC/100 WBC (Bld) [Ratio] 0 % 0-5 [facility] Platelet mean volume (Bld) [Entitic vol] 11.0 fL 6.2-12.0 [facility] Platelets (Bld) [#/Vol] 150 10*3/uL 150-450 [facility] No Panel InformationOrdered By: Sandra Stone on 07-23-2023 Hepatitis B Surface Antigen Non-Reactive Nonreactive [facility] Hepatitis C Antibody Non-Reactive Nonreactive [facility] Comment on above: Non Reactive: < 0.8 Equivocal: >/= 0.8 to < 1.0 Reactive: >/= 1.0The CDC requires that a reactive/equivocal HCV antibody result be sent out for confirmation. HCV Quant by PCR testing. Rubella IgG Antibody Reactive Nonreactive [facility] Comment on above: Antibody Results Int erpretation of Immune Status Non Reactive Presumed Non-Immune Equivocal Equivocal Reactive Presumed Immune RBC Auto (Bld) [#/Vol]Ordere d By: Sandra Stone on 07-23-2023 RBC (Bld) [#/Vol] 4.57 10*6/uL 4.2-5.4 [facility] Serum Treponema species anti body detectionOrdered By: Sandra Stone on 07-23-2023 Treponema sp Ab Ql (S) Non-Reactive [facility] Serum or plasma choriogonado tropin detectionOrdered By: Tony Gloria on 07-23-2023 HCG ( test) Ql 265 mIU/mL <4 [facility] Comment on above: hCG levels with Gest ational AgeGestational Age hCG mIU/mL (IU/L)0.2 - 1 week 5 - 501-2 weeks 50 - 5002-3 weeks 100 - 50473-3 weeks 500 - 109527-0 weeks 1000 - 448550-1 weeks 49308 - 100,0006-8 weeks 62965 - 200,0002-3 months 41085 - 100,000 Serum or plasma choriogonado tropin detectionOrdered By: Tony Gloria on 07-06-2023 HCG ( test) Ql < 1 mIU/mL <4 [facility] Comment on above: hCG levels with Gest ational AgeGestational Age hCG mIU/mL (IU/L)0.2 - 1 week 5 - 501-2 weeks 50 - 5002-3 weeks 100 - 10631-7 weeks 500 - 924923-7 weeks 1000 - 178583-6 weeks 71189 - 100,0006-8 weeks 58285 - 200,0002-3 months 32374 - 100,000 Basophil percentageOrdered B y: Palmira Oliva on 05-22-2023 Hemoglobin (Bld) [Mass/Vol] 12.7 g/dL 12.0-15.0 [facility] WBC (Bld) [#/Vol] 10.2 10*3/uL 4.4-11.0 [facility] Determination of erythrocyte mean corpuscular volume (MCV)Ordered By: Palmira Oliva on 05-22-2023 MCV (RBC) [Entitic vol] 92.1 fL 81-99 [facility] Erythrocyte distribution wid th ratioOrdered By: Palmira Oliva on 05-22-2023 Erythrocyte distribution width (RBC) [Ratio] 12.5 % 11.6-14.6 [facility] Erythrocyte distribution wid th standard deviationOrdered By: Palmira Oliva on 05-22-2023 Erythrocyte distribution width (RBC) [Entitic vol] 42.1 fL 35.1-43.9 [facility] Hematocrit Auto (Bld) [Volum e fraction]Ordered By: Palmira Oliva on 05-22-2023 Hematocrit (Bld) [Volume fraction] 37.5 % 37-47 [facility] Laboratory - Hematology and Cell countsOrdered By: Palmira Oliva on 05-22-2023 MCH (RBC) [Entitic mass] 31.2 pg 27.0-32.0 [facility] MCHC (RBC) [Mass/Vol] 33.9 g/dL 32-36 [facility] Platelets (Bld) [#/Vol] 141 10*3/uL 150-450 [facility] Platelet mean volume Nader-Ec ker (Bld) [Entitic vol]Ordered By: Palmira Oliva on 05-22-2023 Platelet mean volume (Bld) [Entitic vol] 11.1 fL 6.2-12.0 [facility] RBC Auto (Bld) [#/Vol]Ordere d By: Palmira Oliva on 05-22-2023 RBC (Bld) [#/Vol] 4.07 10*6/uL 4.2-5.4 [facility] .Urinalysis Microscopic (AO) on 05-20-2023 UA Bacteria 2+ /hpf Abnormal [facility] (ID) Comment on above: Performed By: #### U A UAMICAO #### [place] [address] UA RBC 0-5 Abnormal None Seen [facility] ([place]) Comment on above: Performed By: #### U A UAMICAO #### [address] [address] UA Squam Epithelial 0-5 Abnormal None Seen [facility] ([place]) Comment on above: Performed By: #### U A UAMICAO #### [place] [address] UA WBC 5-10 Abnormal None Seen [facility] ([place]) Comment on above: Performed By: #### U A, UAMICAO #### [place] [address] Gel ABOon 05-20-2023 ABO/Rh Interp Positive Invalid Interpretation Code [facility] ([place]) Comment on above: Performed By: #### A BOG #### [place] [address] LABORATORYOrdered By: Ramana Masters on 05-20-2023 Appearance (U) Slightly Cloudy *ABN* (05/20/23 8:50 PM) Invalid Interpretation Code Clear AO Auto Urine SS Bacteria LM.HPF (Urine sed) [#/Area] 2 /[HPF] Invalid Interpretation Code AO Auto Urine SS Bilirubin Ql (U) Negative (05/20/23 8:50 PM) Normal Negative AO Auto Urine SS Color (U) Yellow (05/20/23 8:50 PM) Normal AO Auto Urine SS Glucose Test strip (U) [Mass/Vol] Negative Normal Negative AO Auto Urine SS Hemoglobin Auto test strip (U) [Mass/Vol] Large *ABN* (05/20/23 8:50 PM) Invalid Interpretation Code Negative AO Auto Urine SS Ketones Ql (U) Negative Normal Negative AO Auto Urine SS UA Leuk Est Trace *ABN* (05/20/23 8:50 PM) Invalid Interpretation Code Negative AO Auto Urine SS UA Nitrite Positive *ABN* (05/20/23 8:50 PM) Invalid Interpretation Code Negative AO Auto Urine SS UA pH 6.0 (05/20/23 8:50 PM) Normal 5.0 - 8.0 AO Auto Urine SS UA Protein Negative Normal Negative AO Auto Urine SS UA RBC 0-5 /HPF Invalid Interpretation Code None Seen AO Auto Urine SS UA Spec Grav 1.025 (05/20/23 8:50 PM) Normal 1.015-1.025 AO Auto Urine SS UA Specimen Type Void (05/20/23 8:50 PM) Normal AO Auto Urine SS UA Squam Epithelial 0-5 /HPF Invalid Interpretation Code None Seen AO Auto Urine SS UA Urobilinogen 0.2 E.U./dL Normal 0.2-1.0 AO Auto Urine SS WBC LM.HPF (Urine sed) [#/Area] 5-10 /HPF Invalid Interpretation Code None Seen AO Auto Urine SS ABO/Rh Interp Positive Invalid Interpretation Code AO BB SS UAon 05-20-2023 Color (U) Yellow Normal [facility] ([place]) Comment on above: Performed By: #### U Peter UAMICCHIP #### [place] [address] [address] Glucose (U) [Mass/Vol] Negative Normal Negative [facility] (ID) Comment on above: Performed By: #### U A, UAMICAO #### [address] [address] Ketones Ql (U) Negative Normal Negative [facility] ([place]) Comment on above: Performed By: #### U A, UAMICAO #### [place] [address] UA Appear Slightly Cloudy Abnormal Clear [facility] ([place]) Comment on above: Performed By: #### U A, UAMICAO #### [place] [address] UA Blood Large Abnormal Negative [facility] ([place]) Comment on above: Performed By: #### U A, UAMICAO #### [place] [address] UA Leuk Est Trace Abnormal Negative [facility] ([place]) Comment on above: Performed By: #### U A, UAMICAO #### [place] [address] UA Nitrite Positive Abnormal Negative [facility] ([place]) Comment on above: Performed By: #### U A, UAMICAO #### [place] [address] UA pH 6.0 Normal 5.0 - 8.0 [facility] ([place]) Comment on above: Performed By: #### U A, UAMICAO #### [place] [address] UA Protein Negative Normal Negative [facility] ([place]) Comment on above: Performed By: #### U A, UAMICAO #### [place] [address] UA Spec Grav 1.025 Normal 1.015-1.025 [facility] ([place]) Comment on above: Performed By: #### U A, UAMICAO #### [place] [address] UA Specimen Type Void Normal [facility] ([place]) Comment on above: Performed By: #### U A, UAMICAO #### [place] [address] UA Urobilinogen 0.2 E.U./dL Normal 0.2-1.0 [facility] ([place]) Comment on above: Performed By: #### U A, UAMICAO #### [place] [address] [place], [place] [address] Urobilinogen (U) [Mass/Vol] Negative Normal Negative [facility] ([place]) Comment on above: Performed By: #### U A, UAMICAO #### [place] [address] [place], [place] [address] No Panel InformationOrdered By: Nini Anderson on 05-14-2023 Miscellaneous Test Comment MAILED SPECIMEN [facility] - Chemistry and C hemistry - challengeon 04-30-2023 Glucose Ql (U) Negative [facility] - Urinalysison Protein Ql (U) Negative [facility] Serum or plasma choriogonado tropin detectionOrdered By: Neda Ramos on 2023 HCG ( [place]) [place]l [address] mIU/mL <4 [facility] Comment on above: hCG levels with Gest ational AgeGestational Age hCG mIU/mL (IU/L)0.2 - 1 week 5 - 501-2 weeks 50 - 5002-3 weeks 100 - 08059-5 weeks 500 - 490018-0 weeks 1000 - 786603-2 weeks 52441 - 100,0006-8 weeks 54259 - 200,0002-3 months 78181 - 100,000 Serum or plasma choriogonado tropin detectionOrdered By: Neda Ramos on 04-18-2023 HCG ( [place]) [place]l [address] mIU/mL <4 [facility] Comment on above: hCG levels with Gest ational AgeGestational Age hCG mIU/mL (IU/L)0.2 - 1 week 5 - 501-2 weeks 50 - 5002-3 weeks 100 - 39490-6 weeks 500 - 021394-4 weeks 1000 - 388112-4 weeks 72262 - 100,0006-8 weeks 53369 - 200,0002-3 months 55678 - 100,000 Chlamydia trachomatis rRNA d etection by probe and target amplification methodOrdered By: Sandra Stone on 04-16-2023 C. trachomatis rRNA ASHLIE+probe Ql (Unsp spec) Negative Negative [facility] Culture, urineOrdered By: Agustin Stone on 04-16-2023 Bacteria identified Cx Nom (U) Culture exhibits no growth. [facility] Bacteria identified Cx Nom (U) Culture exhibits no growth. [facility] - Microbiology an d Antimicrobial susceptibilityOrdered By: Sandra Stone on 04-16-2023 N. gonorrhoeae DNA ASHLIE+probe Ql (Unsp spec) Negative Negative [facility] Comment on above: Performed at: =[address] [id number] Director: Nellie Veloz MD, Phone: [phone] Serum or plasma choriogonado tropin detectionOrdered By: Neda Ramos on 04-16-2023 HCG ( test) Ql [address]358 mIU/mL <4 [facility] Comment on above: hCG levels with Gest ational AgeGestational Age hCG mIU/mL (IU/L)0.2 - 1 week 5 - 501-2 weeks 50 - 5002-3 weeks 100 - 48997-1 weeks 500 - 283544-9 weeks 1000 - 195727-2 weeks 59065 - 100,0006-8 weeks 65103 - 200,0002-3 months 91663 - 100,000 Culture, urineOrdered By: Agustin Stone on 04-03-2023 Bacteria identified Cx Nom (U) Presumptive E. coli [facility] Bacteria identified Cx Nom (U) Presumptive E. coli [facility] Laboratory - Chemistry and C hemistry - challengeon 04-03-2023 Bilirubin Ql (U) Negative [facility] Glucose Ql (U) Negative [facility] Ketones Ql (U) Large (80+) [facility] Specific gravity (U) [Rel density] 1.010 [facility] Urobilinogen (U) [Mass/Vol] Negative [facility] Laboratory - Hematology and Cell countson 04-03-2023 Hemoglobin Ql (U) Moderate [facility] - Specimen inform ationon 04-03-2023 Clarity (U) Cloudy [facility] Color (U) ORANGE [facility] - Urinalysison Nitrite Ql (U) Negative [facility] Protein Ql (U) Negative [facility] No Panel Informationon 04-[address] [facility] Urine Non-Hemolyzed Blood [facility] - Chemistry and C hemistry - challengeOrdered By: Jaylon Nunes on 01-10-2023 HCG ( test) Ql (U) Negative [facility] Comment on above: Very dilute urine sp ecimens, as indicated by a low specificgravity, may not contain brewery representative levels of hCG. If is still suspected, a first morning urinespecimen should be collected 48 hours later and tested. Absolute lymphocyte countOrd ered By: Radha Curtis on 12-08-2022 Lymphocytes Auto (Unsp spec) [#/Vol] 0.95 10*3/uL 0.83-4.51 [facility] Basophil percentageOrdered B y: Radha Curtis on 12-08-2022 Basophil percentage 0-5 SEEN /hpf 0-5 [facility] Basophils/100 WBC (Bld) 0.4 % 0-1 [facility] Chloride [Moles/Vol] 111 mmol/L 98-107 [facility] Eosinophils/100 WBC (Bld) 1.6 % 0-5 [facility] Glucose [Mass/Vol] 86 mg/dL 74-106 [facility] Lactate [Moles/Vol] 0.8 mmol/L 0.4-2.0 [facility] Neutrophils (Bld) [#/Vol] 4.9 10*3/uL 2.0-7.7 [facility] Neutrophils/100 WBC (Bld) 73.7 % 47-70 [facility] Potassium [Moles/Vol] 3.6 mmol/L 3.5-5.1 [facility] Sodium [Moles/Vol] 142 mmol/L 136-145 [facility] WBC (Bld) [#/Vol] 6.7 10*3/uL 4.4-11.0 [facility] Beta hCG serum qualOrdered B y: Radha Curtis on 12-08-2022 Beta HCG ( test) Ql Negative [facility] Bilirubin Test strip Ql (U)O rdered By: Radha Curtis on 12-08-2022 Bilirubin Ql (U) Negative Negative [facility] Blood erythrocytes count (nu mber/volume)Ordered By: Radha Curtis on 12-08-2022 RBC (Bld) [#/Vol] 4.18 10*6/uL 4.2-5.4 [facility] Blood hemoglobin measurement (mass/volume)Ordered By: Radha Curtis on 12-08-2022 Hemoglobin (Bld) [Mass/Vol] 12.8 g/dL 12.0-15.0 [facility] Blood lymphocytes/100 leukoc ytesOrdered By: Radha Curtis on 12-08-2022 Lymphocytes/100 WBC (Bld) 14.2 % 19-41 [facility] Blood monocytes/100 leukocyt esOrdered By: Radha Curtis on 12-08-2022 Monocytes/100 WBC (Bld) 10.0 % 0-10 [facility] Blood platelet mean volumeOr dered By: Radha Curtis on 12-08-2022 Platelet mean volume (Bld) [Entitic vol] 11.2 fL 6.2-12.0 [facility] Determination of erythrocyte mean corpuscular volume (MCV)Ordered By: Radha Curtis on 12-08-2022 MCV (RBC) [Entitic vol] 93.1 fL 81-99 [facility] Hematocrit Auto (Bld) [Volum e fraction]Ordered By: Radha Curtis on 12-08-2022 Hematocrit (Bld) [Volume fraction] 38.9 % 37-47 [facility] Ketones Test strip Ql (U)Ord ered By: Radha Curtis on 12-08-2022 Ketones Ql (U) 5 mg/dl Negative [facility] - Chemistry and C hemistry - challengeOrdered By: Radha Curtis on 12-08-2022 CO2 [Moles/Vol] 27.0 mmol/L 21.0-32.0 [facility] Urea nitrogen/Creatinine [Mass ratio] 21.4 mg/mg 10-20 [facility] - Hematology and Cell countsOrdered By: Radha Curtis on 12-08-2022 Erythrocyte distribution width (RBC) [Entitic vol] 41.2 fL 35.1-43.9 [facility] Erythrocyte distribution width (RBC) [Ratio] 12.0 % 11.6-14.6 [facility] Immature granulocytes/100 WBC (Bld) 0.100 % 0.0-0.9 [facility] Comment on above: IG% - Immature Granu locytes (promyelocytes, myelocytes and metamyelocytes) > 1% indicates that a LEFT SHIFT is Present. MCH (RBC) [Entitic mass] 30.6 pg 27.0-32.0 [facility] Nucleated RBC/100 WBC (Bld) [Ratio] 0 % 0-5 [facility] MCHC Auto (RBC) [Mass/Vol]Or dered By: Radha Curtis on 12-08-2022 MCHC (RBC) [Mass/Vol] 32.9 g/dL 32-36 [facility] Mucus LM Ql (Urine sed)Order ed By: Radha Curtis on 12-08-2022 Mucus Ql (Urine sed) 0 SEEN /hpf [facility] Nitrite Test strip Ql (U)Ord ered By: Radha Curtis on 12-08-2022 Nitrite Ql (U) Negative Negative [facility] No Panel InformationOrdered By: Radha Curtis on 12-08-2022 Estimated Creatinine Clearance Calc 160.50 ml/min [facility] Estimated GFR (MDRD) Amer 211 mL/min >60 [facility] Comment on above: GFR Calc Estimated GFR (MDRD) Non-Af Amer 174 mL/min >60 [facility] Comment on above: Non- GFR Calc Platelets bldOrdered By: Mandi Curtis on 12-08-2022 Platelets (Bld) [#/Vol] 108 10*3/uL 150-450 [facility] Protein Test strip Ql (U)Ord ered By: Radha Curtis on 12-08-2022 Protein Ql (U) 30 mg/dl Negative [facility] Serum or plasma calcium leigh urement (mass/volume)Ordered By: Radha Curtis on 12-08-2022 Calcium [Mass/Vol] 8.0 mg/dL 8.5-10.1 [facility] Serum or plasma creatinine m easurement (mass/volume)Ordered By: Radha Curtis on 12-08-2022 Creatinine [Mass/Vol] 0.47 mg/dL 0.55-1.02 [facility] Comment on above: The validity of the calculated GFR & GFRAA in patients over 70 years has not been determined. Clinical correlation is essential. Serum or plasma urea nitroge n measurement (mass/volume)Ordered By: Radha Curtis on 12-08-2022 Urea nitrogen [Mass/Vol] 10 mg/dL 7-18 [facility] Squamous epithelial cells de tection in urine sediment by light microscopyOrdered By: Radha Curtis on 12-08-2022 Epithelial cells.squamous LM Ql (Urine sed) 5-10 SEEN /hpf 5-10 [facility] Thin prep Papanicolaou smear with manual screeningOrdered By: Radha Curtis on 12-08-2022 Thin prep Papanicolaou smear with manual screening 4 5-15 [facility] Urine blood detectionOrdered By: Remus Curtis on 12-08-2022 RBC Ql (U) 10 /ul Negative [facility] RBC Ql (U) 0 SEEN /hpf 0-5 [facility] Urine clarityOrdered By: Mandi Curtis on 12-08-2022 Clarity (U) Sl. Cloudy Clear [facility] Urine color determinationOrd ered By: Radha Curtis on 12-08-2022 Color (U) Yellow Yellow [facility] Urine glucose detectionOrder ed By: Radha Curtis on 12-08-2022 Glucose Ql (U) Normal mg/dl Normal [facility] Urine leukocyte esterase det ection by dipstickOrdered By: Radha Curtis on 12-08-2022 Leukocyte esterase Test strip Ql (U) Negative Negative [facility] Urine pHOrdered By: Radha Morejon gur on 12-08-2022 pH (U) 7.0 [pH] 5.0 - 8.0 [facility] Urine sediment bacteria coun t by microscopy (number/high power field)Ordered By: Radha Curtis on 12-08-2022 Bacteria LM.HPF (Urine sed) [#/Area] 0 /[HPF] None Seen [facility] Urine specific gravity measu rementOrdered By: Radha Curtis on 12-08-2022 Specific gravity (U) [Rel density] 1.010 1.002-1.030 [facility] Urobilinogen Auto test strip Ql (U)Ordered By: Radha Curtis on 08-05-2023 Urobilinogen Ql (U) 1 mg/dl Normal [facility] Basophil percentageOrdered B y: Delfin Bashir on 11-10-2022 Basophil percentage 25-50 SEEN /hpf 0-5 [facility] Bilirubin Test strip Ql (U)O rdered By: Delfin Bashir on 11-10-2022 Bilirubin Ql (U) 3 mg/dL Negative [facility] Comment on above: COLOR OF URINE MAY A FFECT DIPSTICK RESULTS. Ketones Test strip Ql (U)Ord ered By: Delfin Bashir on 11-10-2022 Ketones Ql (U) Negative Negative [facility] Laboratory - Chemistry and C hemistry - challengeOrdered By: Delfin Bashir on 11-10-2022 HCG ( test) Ql (U) Negative [facility] Comment on above: Very dilute urine sp ecimens, as indicated by a low specificgravity, may not contain brewery representative levels of hCG. If is still suspected, a first morning urinespecimen should be collected 48 hours later and tested. Mucus LM Ql (Urine sed)Order ed By: Delfin Bashir on 11-10-2022 Mucus Ql (Urine sed) 0 SEEN /hpf [facility] Nitrite Test strip Ql (U)Ord ered By: Delfin Bashir on 11-10-2022 Nitrite Ql (U) Positive Negative [facility] Protein Test strip Ql (U)Ord ered By: Delfin Bashir on 11-10-2022 Protein Ql (U) 30 mg/dl Negative [facility] Squamous epithelial cells de tection in urine sediment by light microscopyOrdered By: Delfin Bashir on 11-10-2022 Epithelial cells.squamous LM Ql (Urine sed) 0-5 SEEN /hpf 5-10 [facility] Urine blood detectionOrdered By: Delfin Bashir on 11-10-2022 RBC Ql (U) 25 /ul Negative [facility] RBC Ql (U) 0-5 SEEN /hpf 0-5 [facility] Urine clarityOrdered By: Rah Bashir on 11-10-2022 Clarity (U) Clear Clear [facility] Urine color determinationOrd ered By: Delfin Bashir on 11-10-2022 Color (U) Shira Yellow [facility] Urine glucose detectionOrder ed By: Delfin Bashir on 11-10-2022 Glucose Ql (U) Normal mg/dl Normal [facility] Urine leukocyte esterase det ection by dipstickOrdered By: Delfin Bashir on 11-10-2022 Leukocyte esterase Test strip Ql (U) 100 /ul Negative [facility] Urine pHOrdered By: Delfin Bashir on 11-10-2022 pH (U) 6.0 [pH] 5.0 - 8.0 [facility] Urine sediment bacteria coun t by microscopy (number/high power field)Ordered By: Delfin Bashir on 11-10-2022 Bacteria LM.HPF (Urine sed) [#/Area] 3 /[HPF] None Seen [facility] Urine specific gravity measu rementOrdered By: Delfin Bashir on 11-10-2022 Specific gravity (U) [Rel density] 1.020 1.002-1.030 [facility] Urobilinogen Auto test strip Ql (U)Ordered By: Delfin Bashir on 11-10-2022 Urobilinogen Ql (U) 8 mg/dl Normal [facility] Absolute lymphocyte counton 10-04-2021 Lymphocytes Auto (Unsp spec) [#/Vol] 1.06 10*3/uL 0.83-4.51 [facility] Work Phone: Basophil percentageon 2021 Basophils/100 WBC (Bld) 0.9 % 0-1 [facility] Work Phone: [phone] Bilirubin [Mass/Vol] 0.40 mg/dL 0.20-1.00 [facility] Work Phone: Comment on above: For patients on eltr ombopag therapy, use of Dimension Waves TBIL is not recommended. Chloride [Moles/Vol] 109 mmol/L 98-107 [facility] Work Phone: Eosinophils/100 WBC (Bld) 0.3 % 0-5 [facility] Work Phone: Glucose [Mass/Vol] 92 mg/dL 74-106 [facility] Work Phone: Neutrophils (Bld) [#/Vol] 5.1 10*3/uL 2.0-7.7 [facility] Work Phone: [phone] Neutrophils/100 WBC (Bld) 78.3 % 47-70 [facility] Work Phone: [phone] Potassium [Moles/Vol] 3.5 mmol/L 3.5-5.1 [facility] Work Phone: Protein [Mass/Vol] 6.9 g/dL 6.4-8.2 [facility] Work Phone: [phone] Sodium [Moles/Vol] 143 mmol/L 136-145 [facility] Work Phone: WBC (Bld) [#/Vol] 6.5 10*3/uL 4.4-11.0 [facility] Work Phone: Basophil percentage 0-5 SEEN /hpf Wo [facility] Work Phone: Bilirubin Test strip Ql (U)o n 10-04-2021 Bilirubin Ql (U) Negative Negative [facility] Work Phone: Blood erythrocytes count (nu mber/volume)on 10-04-2021 RBC (Bld) [#/Vol] 4.65 10*6/uL 4.2-5.4 [facility] Work Phone: Blood hemoglobin measurement (mass/volume)on 10-04-2021 Hemoglobin (Bld) [Mass/Vol] 14.1 g/dL 12.0-15.0 [facility] Work Phone: [phone] Blood lymphocytes/100 leukoc yteson 10-04-2021 Lymphocytes/100 WBC (Bld) 16.3 % 19-41 [facility] Work Phone: [phone] Blood monocytes/100 leukocyt eson 10-04-2021 Monocytes/100 WBC (Bld) 4.0 % 0-10 [facility] Work Phone: [phone] Blood platelet mean volumeon 10-04-2021 Platelet mean volume (Bld) [Entitic vol] 10.8 fL 6.2-12.0 [facility] Work Phone: Determination of erythrocyte mean corpuscular volume (MCV)on 10-04-2021 MCV (RBC) [Entitic vol] 89.0 fL 81-99 [facility] Work Phone: Hematocrit Auto (Bld) [Volum e fraction]on 10-04-2021 Hematocrit (Bld) [Volume fraction] 41.4 % 37-47 [facility] Work Phone: Ketones Test strip Ql (U)on 10-04-2021 Ketones Ql (U) 15 mg/dl Negative [facility] Work Phone: Laboratory - Chemistry and C hemistry - challengeon 10-04-2021 ALP [Catalytic activity/Vol] 74 U/L 45-117 [facility] Work Phone: ALT [Catalytic activity/Vol] 20 U/L 13-56 [facility] Work Phone: CO2 [Moles/Vol] 28.0 mmol/L 21.0-32.0 [facility] Work Phone: Globulin (S) [Mass/Vol] 3.1 g/dL 2.2-4.2 [facility] Work Phone: Urea nitrogen/Creatinine [Mass ratio] 11.6 mg/mg 10-20 [facility] Work Phone: Laboratory - Hematology and Cell countson 10-04-2021 Erythrocyte distribution width (RBC) [Entitic vol] 40.9 fL 35.1-43.9 [facility] Work Phone: Erythrocyte distribution width (RBC) [Ratio] 12.6 % 11.6-14.6 [facility] Work Phone: Immature granulocytes/100 WBC (Bld) 0.200 % 0.0-0.9 [facility] Work Phone: Comment on above: IG% - Immature Granu locytes (promyelocytes, myelocytes and metamyelocytes) > 1% indicates that a LEFT SHIFT is Present. MCH (RBC) [Entitic mass] 30.3 pg 27.0-32.0 [facility] Work Phone: Nucleated RBC/100 WBC (Bld) [Ratio] 0 % 0-5 [facility] Work Phone: MCHC Auto (RBC) [Mass/Vol]on 10-04-2021 MCHC (RBC) [Mass/Vol] 34.1 g/dL 32-36 [facility] Work Phone: Mucus LM Ql (Urine sed)on Mucus Ql (Urine sed) 1+ /[facility] Work Phone: Nitrite Test strip Ql (U)on 10-04-2021 Nitrite Ql (U) Negative Negative [facility] Work Phone: No Panel Informationon 10-04 Estimated Creatinine Clearance Calc 127.00 ml/min [facility] Work Phone: Estimated GFR (MDRD) Amer 159 mL/min >60 [facility] Work Phone: Comment on above: GFR Calc Estimated GFR (MDRD) Non-Af Amer 131 mL/min >60 [facility] Work Phone: Comment on above: Non- GFR Calc Platelets bldon 10-04-2021 Platelets (Bld) [#/Vol] 168 10*3/uL 150-450 [facility] Work Phone: Protein Test strip Ql (U)on 10-04-2021 Protein Ql (U) 15 mg/dl Negative [facility] Work Phone: Serum or plasma albumin leigh urement (mass/volume)on 10-04-2021 Albumin [Mass/Vol] 3.8 g/dL 3.2-5.0 [facility] Work Phone: Serum or plasma albumin/glob ulin mass ratioon 10-04-2021 Albumin/Globulin [Mass ratio] 1.2 {ratio} 0.9-2.4 [facility] Work Phone: Serum or plasma calcium leigh urement (mass/volume)on 10-04-2021 Calcium [Mass/Vol] 8.8 mg/dL 8.5-10.1 [facility] Work Phone: Serum or plasma creatinine m easurement (mass/volume)on 10-04-2021 Creatinine [Mass/Vol] 0.60 mg/dL 0.55-1.02 [facility] Work Phone: Comment on above: The validity of the calculated GFR & GFRAA in patients over 70 years has not been determined. Clinical correlation is essential. Serum or plasma urea nitroge n measurement (mass/volume)on 10-04-2021 Urea nitrogen [Mass/Vol] 7 mg/dL 7-18 [facility] Work Phone: Squamous epithelial cells de tection in urine sediment by light microscopyon 10-04-2021 Epithelial cells.squamous LM Ql (Urine sed) 0-5 SEEN /hpf [facility] Work Phone: Thin prep Papanicolaou smear with manual screeningon 10-04-2021 Thin prep Papanicolaou smear with manual screening 14 U/L 15-37 [facility] Work Phone: Thin prep Papanicolaou smear with manual screening 6 5-15 [facility] Work Phone: Urine blood detectionon 06-0 RBC Ql (U) 10 /ul Negative [facility] Work Phone: RBC Ql (U) 0 SEEN /hpf [facility] Work Phone: Urine clarityon 10-04-2021 Clarity (U) Sl. Cloudy Clear [facility] Work Phone: Urine color determinationon 10-04-2021 Color (U) Yellow Yellow [facility] Work Phone: Urine glucose detectionon Glucose Ql (U) Normal mg/dl Normal [facility] Work Phone: Urine leukocyte esterase det ection by dipstickon 10-04-2021 Leukocyte esterase Test strip Ql (U) 100 /ul Negative [facility] Work Phone: Urine pHon 10-04-2021 pH (U) 6.5 [pH] [facility] Work Phone: Urine sediment bacteria coun t by microscopy (number/high power field)on 10-04-2021 Bacteria LM.HPF (Urine sed) [#/Area] 0 /[HPF] None Seen [facility] Work Phone: Urine specific gravity measu rementon 10-04-2021 Specific gravity (U) [Rel density] 1.015 [facility] Work Phone: Urobilinogen Auto test strip Ql (U)on 10-04-2021 Urobilinogen Ql (U) 1 mg/dl Normal [facility] Work Phone: Culture, urineon 07-07-2021 Bacteria identified Cx Nom (U) Mixed Gram Pos & Gram Neg Org [facility] Work Phone: Laboratory - Chemistry and C hemistry - challengeon 07-07-2021 Bilirubin Ql (U) Negative [facility] Work Phone: Glucose Ql (U) Negative [facility] Work Phone: Ketones Ql (U) Small (15+) [facility] Work Phone: Specific gravity (U) [Rel density] 1.010 [facility] Work Phone: Urobilinogen (U) [Mass/Vol] Negative [facility] Work Phone: Laboratory - Hematology and Cell countson 07-07-2021 Hemoglobin Ql (U) Moderate [facility] Work Phone: Laboratory - Specimen inform ationon 07-07-2021 Clarity (U) Cloudy [facility] Work Phone: Color (U) Straw [facility] Work Phone: Laboratory - Urinalysison Nitrite Ql (U) Negative [facility] Work Phone: Protein Ql (U) Negative [facility] Work Phone: No Panel Informationon 07-[address] [facility] Work Phone: Urine Non-Hemolyzed Blood [facility] Work Phone: No Panel Informationon 04-11 D-Dimer Quantitative (PE/DVT) 1.68 FEU/ug/m 0.27-0.49 [facility] Work Phone: Comment on above: D-Dimer ELEVATED (>0 .49): Additional studies and clinicalassessments are indicated to conclude diagnosis of:Deep Vein Thrombosis (DVT) or Pulmonary Embolism (PE)CRITICAL VALUE VERIFIED. CALLED TO [id number]/07/21 1621 Rowan Bernard.RESULTS READ BACK BY SAME . TREYS Stacey 11-27-2018 ANES POST HNO ID: [id number] Author: Julio César Carrera Service: ? Author Type: Physician Type: Anesthesia PostOp Filed: 11/27/2018 1:36 PM Note Text: POST ANESTHESIA EVALUATION NOTE SERVICE DATE: 11/27/2018 SERVICE TIME: 13:30 : 2000 Vitals: 11/27/18 0957 11/27/18 1225 11/27/18 1300 Temp: 36.8 ?C (98.2 ?F) 36.9 ?C (98.4 ?F) 36.8 ?C (98.2 ?F) 11/27/18 1225 11/27/18 1245 11/27/18 1300 11/27/18 1315 BP: 128/81 100/57 107/60 107/62 11/27/18 1225 11/27/18 1245 11/27/18 1300 11/27/18 1315 Pulse: 78 63 70 70 11/27/18 1225 11/27/18 1245 11/27/18 1300 11/27/18 1315 Resp: 16 17 18 16 11/27/18 1225 11/27/18 1245 11/27/18 1300 11/27/18 1315 SpO2: 100% 100% 99% 99% Validated Vital Signs: Yes POST ANES STATUS: No apparent anesthetic complications. The patient is appropriately hydrated with stable respiratory and cardiovascular status. Patient has safe and adequate airway control. The patient has appropriate pain relief and no significant post operative nausea or vomiting. The patient has achieved baseline mental status. Intra-Operative Events: No Significant Anesthesia Events Further assessment by Anesthesia Service: None Other Remarks: SIGNATURE: Julio César Carrera MD PATIENT NAME: Kimani Colon DATE: November 27, 2018 TIME: 1:35 PM PAGER/CONTACT #: [facility] ANES PREOPon 11-27-2018 ANES PREOP HNO ID: [id number] Author: Julio César Carrera Service: ? Author Type: Physician Type: Anesthesia PreOp Filed: 11/27/2018 10:51 AM Note Text: ANESTHESIOLOGY DAY OF SURGERY NOTE SERVICE DATE: 11/27/2018 SERVICE TIME: 10:50 : 2000 Procedure(s) (LRB): LAPAROSCOPY DIAGNOSTIC (N/A) Surgeon(s): Joe Mensah Estimated body mass index is 23 kg/m? as calculated from the following: Height as of this encounter: 162.6 cm (5' 4). Weight as of this encounter: 60.8 kg (134 lb). Most recent hematocrit and potassium results: Hematocrit 44.7 11/21/2018 Potassium 4.2 11/21/2018 ANES DOS/PREOP NOTE: Vitals: 11/27/18 0957 BP: 121/69 Pulse: 80 Resp: 18 Temp: 36.8 ?C (98.2 ?F) TempSrc: Temporal Artery SpO2: 98% Weight: 60.8 kg (134 lb) Height: 162.6 cm (5' 4) ACTIVE PROBLEM LIST Depression With Anxiety Low Back Pain Gerd (Gastroesophageal Reflux Disease) Current Smoker Pain Pelvic PAST MEDICAL HISTORY Diagnosis Date - Depression with anxiety PAST SURGICAL HISTORY Procedure Laterality Date - NONE FAMILY HISTORY Problem Relation Age of Onset - Hypertension Father - Diabetes Father - Hypertension Paternal Grandmother - other (lupus) Mother - No Known Problems Brother - No Known Problems Brother - No Known Problems Brother Social History: Social History Tobacco Use - Smoking status: Current Every Day Smoker Types: Cigarettes - Smokeless tobacco: Former User Types: Chew Substance Use Topics - Alcohol use: Never Frequency: Never - Drug use: Never No current facility-administered medications on file prior to encounter. Current Outpatient Medications on File Prior to Encounter: acetaminophen (TYLENOL EXTRA STRENGTH) 500 mg tablet Take 1,000 mg by mouth every 8 hours as needed. medroxyPROGESTERone (DEPO-PROVERA) 150 mg/mL injection Inject 1 mL intramuscularly as directed. Every 12 weeks. Current Facility-Administered Medications Medication Dose Route Frequency Provider Last Rate Last Dose - lidocaine 10 mg/mL (1 %) 1-2 mg injection (XYLOCAINE) 0.1-0.2 mL INTRADERMAL PRN Joe R Welda - lactated ringers infusion 125 mL/hr INTRAVENOUS CONTINUOUS Joe R Welda 125 mL/hr at 11/27/18 0955 125 mL/hr at 11/27/18 0955 Allergies: ALLERGIES No Known Allergies DOS EXAM: Adequate NPO status: Yes Anesthetic risks, benefits, alternatives, personnel and consent discussed: Yes Patient agrees to proceed: Yes Previous Anesthesia: No history of adverse event. Airway Assessment: MP 2; Neck ROM: Full ROM without neurologic symptoms; Airway Evaluation: No significant abnormalities Symptoms of Sleep Apnea: None Dentition: Teeth intact Additional Physical Exam: Lungs: normal vesicular breath sounds Cardiac: normal S1 and S2; no rubs, no murmurs, and no gallops Additional Pertinent Findings: N/A Blood Products: Not anticipated for this procedure. Anesthetic Plan: General, Standard ASA Monitors Pain Management Plan: Parenteral or Oral ASA Class: 2 Other Medical Problems: None Chronic Beta Suad medication administered within 24 hours: N/A I have interviewed and examined the patient. I have reviewed the medical record and/or the pre-anesthesia evaluation, pertinent labs, and test results. Significant changes in the patient's condition since the History and Physical, not otherwise documented in primary service progress notes: No This contains updated information obtained within 48 hours of Surgery/Procedure. SIGNATURE: Julio César Carrera MD PATIENT NAME: Kimani Colon DATE: November 27, 2018 TIME: 10:50 AM CSN: [id number] [facility] NURSING PROGon 11-27-2018 NURSING PROG HNO ID: [id number] Author: Franchesca (Rn) JANNA Odell Service: ? Author Type: Registered Nurse Type: Nursing Progress Note Filed: 11/27/2018 2:21 PM Note Text: Nursing Progress Note Patient Name: Kimani Colon Patient Location: [place] Surgery/[place] Surgery @1335 Report from JANNA Juan. States pt ambulated to restroom and unable to void. States bladder scan done and only 60 ml in bladder. JANNA Juan called Dr. Mensah. Office staff states they will have him call re: straight cath order. Discussed with pt. Pt states, I am refusing that for sure. I don't want a catheter. Pt states, she does not want family back yet and will have them come back after she dresses. @[address] Mensah's office called and state MD busy and unable to call but states Dr. Mensah states not to cath pt at this time and pt may be discharged. Asked that order be placed when MD able. Pt aware to come to ER if unable to void within 6-8 hours or feels like bladder is distended. @1415 No wound care instructions on d/c. Pt and family aware to keep sites clean and dry this evening. Mom told to call Dr. Waterman office in the morning for specific info re: care. Shower, s/s of infection discussed. Aware to avoid tub baths, swimming, etc. until rechecked by Dr. Mensah. This note was completed by: Franchesca Odell RN [facility] NURSING PROG HNO ID: [id number] Author: Yessica (Rn) JANNA Briceno Service: Nursing Author Type: Registered Nurse Type: Nursing Progress Note Filed: 11/27/2018 1:34 PM Note Text: Pt up to bathroom unable to void not distended only 60 cc by bladder scanner. [facility] NURSING PROG HNO ID: [id number] Author: Chata DukesRn) JANNA Johnson Service: Nursing Author Type: Registered Nurse Type: Nursing Progress Note Filed: 11/27/2018 10:04 AM Note Text: Nursing Progress Note Patient Name: Kimani Colon Patient Location: [place] Surgery/[place] Surgery pt ready for OR, call light in reach, family called to bedside. Dad will take wallet and cell phone This note was completed by: Chata Johnson RN Normal [facility] OPERATIVE NOon 11-27-2018 OPERATIVE NO HNO ID: [id number] Author: Joe Mensah Service: Gynecology Author Type: Physician Type: Operative Report Filed: 11/28/2018 8:57 AM Note Text: [facility] - Operative Report KIMANI COLON : 2000 AGE: 18. SEX: F PATIENT TYPE: A HOSP SVC: OBN LOCATION: [facility] ATTENDING PHYSICIAN: Joe Mensah M.D. CSN NUMBER: [id number] DATE OF SURGERY/PROCEDURE: 11/27/2018 INCISION/PROCEDURE START TIME: 11:50 a.m. INCISION CLOSE/PROCEDURE END TIME: 12:13 p.m. PREOPERATIVE DIAGNOSIS: Pelvic pain. POSTOPERATIVE DIAGNOSIS: Pelvic pain and endometriosis. SURGEON: Joe Mensah M.D. LICENSED JOURNEYMAN ELECTRICIAN: Sahara Hill and Tonya Garcia RN. SURGERY/PROCEDURE: Diagnostic laparoscopy and fulguration of endometriosis. ANESTHESIA: General endotracheal tube. FINDINGS: The patient is noted to have a normal uterus, ovaries, and tubes. There was noted to be minimal endometriosis involving the right uterosacral ligament and there were noted to be peritoneal defects in the anterior cul-de-sac consistent with endometriosis. INDICATIONS: Patient is a 18-year-old female who presented with persistent pelvic pain and wish to proceed with definitive diagnosis. DESCRIPTION OF PROCEDURE: Patient was taken to OR #5 and general anesthesia was induced. The patient was then placed in the lithotomy position. The abdomen, perineum, and vagina were prepped and draped in the usual sterile fashion. Attention was 1st directed to the vagina, where weighted speculum was placed in the posterior vault and an angled retractor was used to expose the cervix. The anterior lip of the cervix was then grasped with a single-tooth tenaculum. The cervix was easily dilated up to a #7 Hegar dilator and a Shahriar uterine manipulator was then secured to the anterior lip of the cervix. A Bailey catheter was then placed and attention was directed to the abdomen. A small infraumbilical incision was then made and a Veress needle was placed. Placement was confirmed by the saline water drop method. CO2 gas was instilled until an adequate pneumoperitoneum was created. At this point, a 5 mm laparoscope was placed under direct visualization. Once into the abdominal cavity, a small suprapubic incision was then made and a 5 mm trocar was placed under direct visualization. The pelvis was inspected. Please see the findings as listed above. At this time, the decision was made to fulgurate the endometriosis on the right uterosacral ligament. This was done using the [place] grasping forceps and the unipolar coag set at 35 douglas of power. The area was felt to be adequately fulgurated and the right ureter was seen peristalsing normally. At this point, the decision was made to terminate the procedure. All gas was allowed to escape from the abdomen. The trocar sheaths were then removed. The incisions were then closed with a subcuticular 4-0 Vicryl suture. Sponge and needle counts were correct at the end of the procedure. The patient tolerated the procedure well. PATHOLOGY: None. COMPLICATIONS: None. DISPOSITION: Patient was transferred to the recovery room in stable condition. ESTIMATED BLOOD LOSS: Noted to be 5 mL. Please note, [facility] does not have DELIVERY DRIVER/CUSTOMER SERVICE residents, thus none was available for this procedure. Joe Mensah M.D. CHARLES:[id number] /[id number] Normal [facility] PT EDon 11-27-2018 PT ED HNO ID: [id number] Author: Franchesca (Rn) JANNA Odell Service: ? Author Type: Registered Nurse Type: Patient Education Filed: 11/27/2018 2:17 PM Note Text: POST OP LEARNING RESPONSE INSTRUCTION PROVIDED TO: Patient and family member METHOD OF INSTRUCTION: Teach Back done Individual instruction Written instruction - handouts Verbal instruction PATIENT / FAMILY RESPONSE: Verbalizes understanding of: MEDICATION PRESCRIBED-Accurate knowledge of prescribed medication prior to discharge POST-OPERATIVE INSTRUCTIONS-Correct actions to take to reduce postoperative complications PATIENT SAFETY PRINCIPLES SYMPTOM MANAGEMENT-Correct actions to take to manage symptoms associated with his/her disease/illness WORSENING CONDITION-Signs and symptoms of a worsening condition that warrant a call to the physician WOUND CARE-Correct procedure to perform wound care FOLLOW-UP PLAN: Patient instructed to call with any further issues Contact information given. SUPPLEMENTAL MATERIAL: None REFERRAL (RECOMMENDATION): None Electronically Signed By: Franchesca Odell RN In Department: [facility] SURGERY [facility] PT ED HNO ID: [id number] Author: Chata (Rn) JANNA Johnson Service: Nursing Author Type: Registered Nurse Type: Patient Education Filed: 11/27/2018 10:03 AM Note Text: PRE OP LEARNING ASSESSMENT PROCEDURE/SURGERY: SURGERY: Diagnostic Lap READINESS TO LEARN COGNITIVE ABILITY: Alert and oriented MOTIVATION TO LEARN: Interested FAMILY SUPPORT: High - Very involved in pt care PATIENT LEARNS BEST BY: Written Instruction - Hand-outs Verbal Instruction FACTORS AFFECTING LEARNING: None PHYSICAL LIMITATIONS AFFECTING LEARNING: None Electronically Signed By: Chata Johnson RN In Department: [facility] SURGERY [facility] HISTORY PHYSICALon HISTORY PHYSICAL HNO ID: [id number] Author: Joe Mensah Service: Gynecology Author Type: Physician Type: HANDP Filed: 11/27/2018 11:25 AM Note Text: 18 year old White female presents with persistent pelvic pain. Patient's records were obtained and her ultrasound done in 10/2018 showed a negative female pelvis. The patient continues to have pain with symptoms consistent with endometriosis and wishes to proceed with diagnostic laparoscopy PAST MEDICAL HISTORY Diagnosis Date - Depression with anxiety PAST SURGICAL HISTORY Procedure Laterality Date - NONE Current Outpatient Medications on File Prior to Encounter: medroxyPROGESTERone (DEPO-PROVERA) 150 mg/mL injection Inject 1 mL intramuscularly as directed. Every 12 weeks. ?ALLERGIES No Known Allergies Social History Socioeconomic History Marital status: Single Spouse name: Not on file Number of children: Not on file Years of education: Not on file Highest education level: Not on file Occupational History Not on file Social Needs Financial resource strain: Not on file Food insecurity: Worry: Not on file Inability: Not on file Transportation needs: Medical: Not on file Non-medical: Not on file Tobacco Use Smoking status: Current Every Day Smoker Types: Cigarettes Smokeless tobacco: Former User Types: Chew Substance and Sexual Activity Alcohol use: Never Frequency: Never Drug use: Never Sexual activity: Yes Lifestyle Physical activity: Days per week: Not on file Minutes per session: Not on file Stress: Not on file Relationships Social connections: Talks on phone: Not on file Gets together: Not on file Attends mu-ism service: Not on file Active member of club or organization: Not on file Attends meetings of clubs or organizations: Not on file Relationship status: Not on file Intimate partner violence: Fear of current or ex partner: Not on file Emotionally abused: Not on file Physically abused: Not on file Forced sexual activity: Not on file Other Topics Concerns: Not on file Social History Narrative Not on file Family History Problem Relation Age of Onset - Hypertension Father - Diabetes Father - Hypertension Paternal Grandmother - other (lupus) Mother - No Known Problems Brother - No Known Problems Brother - No Known Problems Brother ROS: Noncontributory AANDO x 3. HEENT: Grossly normal, no evidence of thyromegaly. Lungs: Clear to auscultation. Cardiovascular: Regular rate and rhythm with no rubs, clicks or gallops. Breasts: Deferred. Abdomen: Soft, nontender with no evidence of hepatosplenomegaly. Keena: Deferred. Extremities: Normal. Neuro: Grossly intact. ? Impression: Pelvic pain, symptoms consistent with endometriosis. ? Plan: Diagnostic laparoscopy. ? Joe Mensah MD 11/27/2018 11:24 AM There have been no changes in this patient's medical history or physical exam. Joe Mensah MD [facility] NURSING PROGon 11-24-2018 NURSING PROG HNO ID: [id number] Author: Marnie Dominguez RN Service: ? Author Type: ? Type: Nursing Progress Note Filed: 11/24/2018 10:29 AM Note Text: PACC Nurse Progress Note History AND Physical: PACC Visit Date: 11/21/18 Original HANDP Date: N/A ED visit Date: N/A Outside HANDP Scanned Date: N/A Labs Within Last 6 Months: CBC: Date 11/21/18 WNL BMP/CMP: Date 11/21/18 Chloride 106, CO2 20 Imaging Within Last 12 Months: N/A Cardiac Testing: N/A Last Menstrual Period: LMP Date: 11/17/2018. Postmenopausal >1yr: No, S/P Hysterectomy: No BMI Percentile (PEDS): N/A Risk Assessment: N/A Anesthesia Review: N/A Narrative: N/A Pre-op Considerations: N/A Chart Check: COMPLETED Marnie Dominguez RN November 24, 2018 10:28 AM [facility] HOSPon 11-12-2018 HOSP Patient:Kimani Colon MRN: Height:5' 4(1.626 m) Weight:134 lb (60.782 kg) Outpatient Medications as of 11/27/18: acetaminophen (TYLENOL EXTRA STRENGTH) 500 mg tablet medroxyPROGESTERone (DEPO-PROVERA) 150 mg/mL injection Admission/Clinic Administered Medications as of 11/27/18: lidocaine 10 mg/mL (1 %) 1-2 mg injection (XYLOCAINE) lactated ringers infusion scopolamine 1 mg over 3 days 1 Patch (TRANSDERM-SCOP) scopolamine - VERIFY patch scopolamine - REMOVE PATCH Problem List: Depression with anxiety [F41.8] Low back pain [M54.5] GERD (gastroesophageal reflux disease) [K21.9] Current smoker [F17.200] Pain pelvic [R10.2] Allergies: No Known Allergies Date Verified:11/27/18 Lab Values Lab Value Units Date High Low POTA* 4.2 mmol/L 11/21/2018 5.1 3.7 YAMEL* 44.7 % 11/21/2018 46.0 36.0 Progress Notes (DOCUMENTATION DESIGNER [facility]): Joe Mensah MD 11/12/2018 3:52 PM Signed 18 year old White female presents today for follow-up of pelvic pain. Patient's records were obtained and her ultrasound done in 10/2018 showed a negative female pelvis. The patient continues to have pain with symptoms consistent with endometriosis and wishes to proceed with diagnostic laparoscopy AANDO x 3. HEENT: Grossly normal, no evidence of thyromegaly. Lungs: Clear to auscultation. Cardiovascular: Regular rate and rhythm with no rubs, clicks or gallops. Breasts: Deferred. Abdomen: Soft, nontender with no evidence of hepatosplenomegaly. Keena: Deferred. Extremities: Normal. Neuro: Grossly intact. Impression: Pelvic pain, symptoms consistent with endometriosis. Plan: Diagnostic laparoscopy. Joe Mensah MD Progress Notes (DOCUMENTATION DESIGNER [facility]): Muriel Romo Pss 11/07/2018 10:56 AM Signed Received records from [facility]. Placed on Dr. Mensah's desk. Muriel Demetrius Pss Normal [facility] ED Physician Reporton 2016 ED Physician Report Patient: KIMANI COLON Age: 16 years Sex: Female : 2000 Associated Diagnoses: Radiculopathy Author: GEOVANNY CLINTON MD Basic Information Time seen: Date & time 03/03/2017 19:58:00. History source: Patient, significant other, family. Arrival mode: Private vehicle, walking. History limitation: None. Additional information: 16 yo co R>>L back pain at Lumbosacral level, each with assd numb feeling down each ipsi LE past knee. 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 Not weak. No bowel/bladder abnormality now, though had frequ/urgent urination, better w urgicenter 's abx, though the back pain no help. Subtherapeutic otc mary no help. History of Present Illness The onset was 7 days ago. The course/duration of symptoms is fluctuating in intensity. Location: Bilateral R is >'er. The character of symptoms is pain and numbness. The degree at onset was minimal. The degree at present is moderate. Risk factors consist of none. Therapy today: none. Associated symptoms: none. Review of Systems Constitutional symptoms: Negative except as documented in HPI. Skin symptoms: Negative except as documented in HPI. Eye symptoms: Negative except as documented in HPI. ENMT symptoms: Negative except as documented in HPI. Respiratory symptoms: Negative except as documented in HPI. Cardiovascular symptoms: Negative except as documented in HPI. Gastrointestinal symptoms: Negative except as documented in HPI. Genitourinary symptoms: Negative except as documented in HPI. Musculoskeletal symptoms: Negative except as documented in HPI. Psychiatric symptoms: Negative except as documented in HPI. Endocrine symptoms: Negative except as documented in HPI. Hematologic/Lymphatic symptoms: Negative except as documented in HPI. Allergy/immunologic symptoms: Negative except as documented in HPI. Neurologic symptoms Negative except as documented in HPI. Health Status Allergies: No known allergies. Medications: Per nurse's notes. Immunizations: Up to date. Menstrual history: not preg. Past Medical/ Family/ Social History Medical history: Negative, uti. Surgical history: Negative. Family history: Not significant. Social history: Not significant. Physical Examination Vital Signs Per nurse's notes. General: NAD but co worse R back pain when sitting. Skin: Dry, pink, intact. Head: Atraumatic. Neck: Supple, trachea midline, no tenderness. Eye: Extraocular movements are intact, normal conjunctiva. Ears, nose, mouth and throat: Oral mucosa moist. Cardiovascular: Normal peripheral perfusion. Respiratory: Respirations are non-labored, Symmetrical chest wall expansion. Gastrointestinal: Soft, Nontender, Non distended. Back: Normal range of motion, Normal alignment, R>>L moerate tenderness to paraL/S area. Low tone so spasm difficult though present R.. Musculoskeletal: Normal ROM, normal strength, no tenderness, no swelling, no deformity. Psychiatric: Cooperative, appropriate mood & affect, normal judgment, non-suicidal. Neurological Alert and oriented to person, place, time, and situation, No focal neurological deficit observed, CN II-XII intact, normal sensory observed, normal motor observed, normal speech observed, normal coordination observed, B L1-S2 Motor & sensory: entire ; R SLR 30 Deg reproduces R sided pain et al sxsRLE hypesthesia. Medical Decision Making Differential Diagnosis: lumbago. Impression and Plan Diagnosis Radiculopathy (VLU23-UM M54.10, Working, Medical) Plan Condition: Stable. Disposition: ED Discharge to Home was placed.(03/03/2017 22:43:12 EDT, Constant Order). Prescriptions: Launch prescriptions Pharmacy:ibuprofen 600 mg oral tablet (Prescribe): 600 mg = 1 tabs, ORAL, P2TGXSA, 30 tabs, 0 Refill(s)Robaxin-750 oral tablet (Prescribe): 1,500 mg = 2 tabs, ORAL, TID, for 14 days, 21 tabs, 0 Refill(s). Counseled: Family, Friend, Patient indicated understanding of instructions. Richardson CLINTON MD 03/04/2017 00:00 Normal [facility] ED Progress Noteon 7 ED Progress Note Patient arrives ambulatory. Complains of lower right back pain, which radiates down right leg. Pt states she was seen at an urgent care last week with these complaints and told she has a UTI.. Has been taking Bactrim at home. However, pain to right lower back/lumbar increase with movement. Urine sample obtained. Pt offered Motrin or Tylenol, declines at this time.Awaiting for MD exam.Assumed care of patient. Patient is sitting in recliner with family in the room.2255 - Mother given discharge instructions and prescriptions. Patient states that she has a PCP (Dr. Deysi Soriano). They will try to follow up in the next 3-5 days with PCP. Patient ambulates from ED room without incident. Normal [facility] U TESTon 7 Test, U Negative Normal [facility] Comment on above: Performed By: #### 1 [id number] ####[facility] [address] [place], [place] [id number]) [phone] Director: Rafa Sales MD U Preg Internal QC Present [facility] Comment on above: Performed By: #### 1 [id number] ####[facility] [id number] [place], [place] [id number]) [phone] Director: Rafa Sales MD UAon 03-03-2017 Appearance, U Slightly Cloudy [facility] Comment on above: Performed By: #### 1 [id number] ####[facility] [address] [place] [address] Medical Director: Rafa Sales MD Bilirubin (direct) Negative Normal Negative [facility] Comment on above: Performed By: #### 1 [id number] ####[facility] [address] [place], [place] [id number]) [phone] Director: Rafa Sales MD Blood, U Negative Normal Negative [facility] Comment on above: Performed By: #### 1 61542 ####[facility] [address] [place], [place] [id number]) [phone] Director: Rafa Sales MD Color, U Yellow [facility] Comment on above: Performed By: #### 1 [id number] ####[facility] [address] [place] [address] Medical Director: Rafa Sales MD Glucose Qual, U Negative Normal Negative [facility] Comment on above: Performed By: #### 1 23854 ####[facility] [address] [place] [address] Medical Director: Rafa Sales MD Ketones, U Negative Normal Negative [facility] Comment on above: Performed By: #### 1 [id number] ####[facility] [address] [place] [address] Medical Director: Rafa Sales MD Leukocyte Esterase, U Negative Normal Negative [facility] Comment on above: Performed By: #### 1 81137 ####[facility] [address] [place] [address] Medical Director: Rafa Sales MD Nitrite, U Negative Normal Negative [facility] Comment on above: Performed By: #### 1 [id number] ####[facility] [address] [place] [address] Medical Director: Rafa Sales MD pH, U 6.5 Normal 4.5-8.0 [facility] Comment on above: Performed By: #### 1 [id number] ####[facility] [address] [place] [address] Medical Director: Rafa Sales MD Protein, U Negative Normal Negative [facility] Comment on above: Performed By: #### 1 15014 ####[facility] [address] [place] [address] Medical Director: Rafa Sales MD Specific [place], U S>=1.030 Normal 1.001-1.035 [facility] Comment on above: Performed By: #### 1 42214 ####[facility] [address] [place] [address] Medical Director: Rafa Sales MD U MICRO Not Indicated Normal [facility] Comment on above: Performed By: #### 1 [id number] ####[facility] [address] [place], [place] [id number] Medical Director: Rafa Sales MD Urobilinogen Qual, U 0.2 EU/dl Normal 0.1-1.0 mg/dl S [facility] Comment on above: Result Comment: EU/d l and mg/dl are equivalent units. Performed By: #### 1 [id number] ####[facility] [address] [place] [address] Medical Director: Rafa Sales MD Vital Signs Date Time Vital Sign Value Performing Clinician Facility 02-09-2025 11:35-0400 Body height 162.56 cm No Primary Care Physician [facility] 02-09-2025 11:35-0400 Body mass index (BMI) [Ratio] 18.8 kg/m2 No Primary Care Physician [facility] 02-09-2025 11:35-0400 Body weight 49.75 kg No Primary Care Physician [facility] 02-09-2025 11:35-0400 Diastolic blood pressure 65 mm[Hg] No Primary Care Physician [facility] 02-09-2025 11:35-0400 Heart rate 83 /min No Primary Care Physician [facility] 02-09-2025 11:35-0400 Systolic blood pressure 102 mm[Hg] No Primary Care Physician [facility] 01-07-2025 11:04-0400 Body mass index (BMI) [Ratio] 21.28 kg/m2 Kaya Coleman APRN.CNM Work Phone: [facility] 01-07-2025 11:04-0400 Body weight 56.25 kg Kaya Coleman APRN.CNM Work Phone: [facility] 01-07-2025 11:04-0400 Diastolic blood pressure 60 mm[Hg] Kaya Coleman APRN.CNM Work Phone: [facility] 01-07-2025 11:04-0400 Systolic blood pressure 110 mm[Hg] Kaya Medsurya PARCEL CONTRACTOR.CNM Work Phone: [facility] 12-14-2024 15:31-0400 Body mass index (BMI) [Ratio] 20.17 kg/m2 Macarena Clutter PA-C Work Phone: [facility] 12-14-2024 15:31-0400 Body temperature 99.19 [degF] Macarena Clutter PA-C Work Phone: [facility] 12-14-2024 15:31-0400 Body weight 53.3 kg Macarena Clutter PA-C Work Phone: [facility] 12-14-2024 15:31-0400 Diastolic blood pressure 64 mm[Hg] Macarena Clutter PA-C Work Phone: [facility] 12-14-2024 15:31-0400 Heart rate 90 /min Macarena Clutter PA-C Work Phone: [facility] 12-14-2024 15:31-0400 Respiratory rate 18 /min Macarena Clutter PA-C Work Phone: [facility] 12-14-2024 15:31-0400 SaO2% (BldA) [Mass fraction] 98 % Macarena Clutter PA-C Work Phone: [facility] 12-14-2024 15:31-0400 Systolic blood pressure 122 mm[Hg] Macarena Clutter PA-C Work Phone: [facility] 11-25-2024 16:06-0400 Body mass index (BMI) [Ratio] 19 kg/m2 Maico Sosa PARCEL CONTRACTOR.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 Work Phone: [facility] 11-25-2024 16:06-0400 Body temperature 98.71 [degF] Maico Sosa PARCEL CONTRACTOR.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 Work Phone: [facility] 11-25-2024 16:06-0400 Body weight 50.2 kg Maico Sosa PARCEL CONTRACTOR.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 Work Phone: [facility] 11-25-2024 16:06-0400 Diastolic blood pressure 60 mm[Hg] Maico Sosa PARCEL CONTRACTOR.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 Work Phone: [facility] 11-25-2024 16:06-0400 Heart rate 88 /min Maico Sosa PARCEL CONTRACTOR.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 Work Phone: [facility] 11-25-2024 16:06-0400 Respiratory rate 16 /min Maico Sosa PARCEL CONTRACTOR.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 Work Phone: [facility] 11-25-2024 16:06-0400 SaO2% (BldA) [Mass fraction] 97 % Maico Sosa PARCEL CONTRACTOR.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 Work Phone: [facility] 11-25-2024 16:06-0400 Systolic blood pressure 102 mm[Hg] Maico Sosa PARCEL CONTRACTOR.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 Work Phone: [facility] 11-11-2024 08:47-0400 Body height 162.6 cm Kaya Coleman PARCEL CONTRACTOR.CNM Work Phone: [facility] 11-11-2024 08:47-0400 Body mass index (BMI) [Ratio] 19.22 kg/m2 Kaya Coleman PARCEL CONTRACTOR.CNM Work Phone: [facility] 11-11-2024 08:47-0400 Body weight 50.8 kg Kaya Coleman PARCEL CONTRACTOR.CNM Work Phone: [facility] 11-11-2024 08:47-0400 Diastolic blood pressure 66 mm[Hg] Kaya Coleman PARCEL CONTRACTOR.CNM Work Phone: [facility] 11-11-2024 08:47-0400 Systolic blood pressure 98 mm[Hg] Kaya Plotsurya PARCEL CONTRACTOR.CNM Work Phone: [facility] 11-02-2024 15:50-0400 Body mass index (BMI) [Ratio] 18.54 kg/m2 Maico Sosa PARCEL CONTRACTOR.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 Work Phone: [facility] 11-02-2024 15:50-0400 Body temperature 97.5 [degF] Maico Sosa PARCEL CONTRACTOR.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 Work Phone: [facility] 11-02-2024 15:50-0400 Body weight 49 [facility] PARCEL CONTRACTOR.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 Work Phone: [facility] 11-02-2024 15:50-0400 Diastolic blood pressure 60 mm[Hg] [facility] PARCEL CONTRACTOR.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 Work Phone: [facility] 11-02-2024 15:50-0400 Heart rate 66 /min [facility] PARCEL CONTRACTOR.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 Work Phone: [facility] 11-02-2024 15:50-0400 Respiratory rate 16 /min [facility] PARCEL CONTRACTOR.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 Work Phone: [facility] 11-02-2024 15:50-0400 SaO2% (BldA) [Mass fraction] 97 % [facility]um [facility] PARCEL CONTRACTOR.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 Work Phone: [facility] 11-02-2024 15:50-0400 Systolic blood pressure 100 mm[Hg] [facility] PARCEL CONTRACTOR.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 Work Phone: [facility] 10-14-2024 08:59-0400 Body mass index (BMI) [Ratio] 19.05 kg/m2 Rusty Palma MD Work Phone: [facility] 10-14-2024 08:59-0400 Body weight 50.35 kg Rusty Palma MD Work Phone: [facility] 10-14-2024 08:59-0400 Diastolic blood pressure 70 mm[Hg] Rusty Palma MD Work Phone: [facility] 10-14-2024 08:59-0400 Systolic blood pressure 110 mm[Hg] Rusty Palma MD Work Phone: [facility] 09-30-2024 12:49-0400 Body temperature 98 [degF] No Primary Care Physician [facility] 09-30-2024 12:49-0400 Diastolic blood pressure 82 mm[Hg] No Primary Care Physician [facility] 09-30-2024 12:49-0400 Heart rate 63 /min No Primary Care Physician [facility] 09-30-2024 12:49-0400 Respiratory rate 16 /min No Primary Care Physician [facility] 09-30-2024 12:49-0400 SaO2% (BldA) [Mass fraction] 100 % No Primary Care Physician [facility] 09-30-2024 12:49-0400 Systolic blood pressure 107 mm[Hg] No Primary Care Physician [facility] 09-30-2024 10:13-0400 Body height 162.56 cm No Primary Care Physician [facility] 09-30-2024 10:13-0400 Body mass index (BMI) [Ratio] 18.8 kg/m2 No Primary Care Physician [facility] 09-30-2024 10:13-0400 Body weight 49.75 kg No Primary Care Physician [facility] 07-22-2024 10:54-0400 Body mass index (BMI) [Ratio] 20.56 kg/m2 Kaya Coleman PARCEL CONTRACTOR.CNM Work Phone: [facility] 07-22-2024 10:54-0400 Body weight 54.34 kg Kaya Coleman PARCEL CONTRACTOR.CNM Work Phone: [facility] 07-22-2024 10:54-0400 Diastolic blood pressure 60 mm[Hg] Kaya Coleman PARCEL CONTRACTOR.CNM Work Phone: [facility] 07-22-2024 10:54-0400 Systolic blood pressure 108 mm[Hg] Kaya Coleman PARCEL CONTRACTOR.CNM Work Phone: [facility] 06-04-2024 13:12-0500 Body mass index (BMI) [Ratio] 22.14 kg/m2 Palmira Palmer MD Work Phone: [facility] 06-04-2024 13:12-0500 Body weight 58.51 kg Palmira Palmer MD Work Phone: [facility] 06-04-2024 13:12-0500 Diastolic blood pressure 66 mm[Hg] Palmira Palmer MD Work Phone: [facility] 06-04-2024 13:12-0500 Systolic blood pressure 114 mm[Hg] Palmira Palmer MD Work Phone: [facility] 04-30-2024 15:34-0500 Body mass index (BMI) [Ratio] 23.52 kg/m2 Kaya Plotts PARCEL CONTRACTOR.CNM Work Phone: [facility] 04-30-2024 15:34-0500 Body weight 62.14 kg Kaya Plotts PARCEL CONTRACTOR.CNM Work Phone: [facility] 04-30-2024 15:34-0500 Diastolic blood pressure 60 mm[Hg] Kaya Plotts PARCEL CONTRACTOR.CNM Work Phone: [facility] 04-30-2024 15:34-0500 Systolic blood pressure 106 mm[Hg] Kaya Plotts PARCEL CONTRACTOR.CNM Work Phone: [facility] 04-15-2024 11:04-0500 Body mass index (BMI) [Ratio] 24.41 kg/m2 Kaya Plotts PARCEL CONTRACTOR.CNM Work Phone: [facility] 04-15-2024 11:04-0500 Body weight 64.5 kg Kaya Plotts PARCEL CONTRACTOR.CNM Work Phone: [facility] 04-15-2024 11:04-0500 Diastolic blood pressure 64 mm[Hg] Kaya Plotts PARCEL CONTRACTOR.CNM Work Phone: [facility] 04-15-2024 11:04-0500 Systolic blood pressure 122 mm[Hg] Kaya Plotts PARCEL CONTRACTOR.CNM Work Phone: [facility] 03-19-2024 11:34-0500 Body mass index (BMI) [Ratio] 27.98 kg/m2 Kaya Plotts PARCEL CONTRACTOR.CNM Work Phone: [facility] 03-19-2024 11:34-0500 Body weight 73.94 kg Kaya Plotts PARCEL CONTRACTOR.CNM Work Phone: [facility] 03-19-2024 11:34-0500 Diastolic blood pressure 64 mm[Hg] Kaya Plotts PARCEL CONTRACTOR.CNM Work Phone: [facility] 03-19-2024 11:34-0500 Systolic blood pressure 118 mm[Hg] Kaya Plotts PARCEL CONTRACTOR.CNM Work Phone: [facility] 03-12-2024 13:24-0500 Body mass index (BMI) [Ratio] 27.64 kg/m2 Kaya Plotts PARCEL CONTRACTOR.CNM Work Phone: [facility] 03-12-2024 13:24-0500 Body temperature 99.3 [degF] Kaya Plotts PARCEL CONTRACTOR.CNM Work Phone: [facility] 03-12-2024 13:24-0500 Body weight 73.03 kg Kaya Plotts PARCEL CONTRACTOR.CNM Work Phone: [facility] 03-12-2024 13:24-0500 Diastolic blood pressure 72 mm[Hg] Kaya Plotts PARCEL CONTRACTOR.CNM Work Phone: [facility] 03-12-2024 13:24-0500 Systolic blood pressure 124 mm[Hg] Kaya Plotts PARCEL CONTRACTOR.CNM Work Phone: [facility] 03-11-2024 10:19-0500 Body mass index (BMI) [Ratio] 27.64 kg/m2 Palmira Palmer MD Work Phone: [facility] 03-11-2024 10:19-0500 Body weight 73.03 kg Palmira Palmer MD Work Phone: [facility] 03-11-2024 10:19-0500 Diastolic blood pressure 70 mm[Hg] Palmira Palmer MD Work Phone: [facility] 03-11-2024 10:19-0500 Systolic blood pressure 118 mm[Hg] Palmira Palmer MD Work Phone: [facility] 03-09-2024 13:42-0500 Body mass index (BMI) [Ratio] 27.33 kg/m2 Jan Cantu MD Work Phone: [facility] 03-09-2024 13:42-0500 Body weight 72.21 kg Jan Cantu MD Work Phone: [facility] 03-09-2024 13:42-0500 Diastolic blood pressure 60 mm[Hg] Jan Cantu MD Work Phone: [facility] 03-09-2024 13:42-0500 Systolic blood pressure 102 mm[Hg] Jan Cantu MD Work Phone: [facility] 03-03-2024 10:37-0400 Body mass index (BMI) [Ratio] 27.26 kg/m2 James Hargrove MD Work Phone: [facility] 03-03-2024 10:37-0400 Body weight 72.03 kg James Hargrove MD Work Phone: [facility] 03-03-2024 10:37-0400 Diastolic blood pressure 73 mm[Hg] James Hargrove MD Work Phone: [facility] 03-03-2024 10:37-0400 Systolic blood pressure 117 mm[Hg] James Hargrove MD Work Phone: [facility] 02-27-2024 14:27-0400 Body mass index (BMI) [Ratio] 27.46 kg/m2 Kaya Coleman PARCEL CONTRACTOR.CNM Work Phone: [facility] 02-27-2024 14:27-0400 Body weight 72.58 kg Kaya Plotsurya PARCEL CONTRACTOR.CNM Work Phone: [facility] 02-27-2024 14:27-0400 Diastolic blood pressure 68 mm[Hg] Kaya Plotts PARCEL CONTRACTOR.CNM Work Phone: [facility] 02-27-2024 14:27-0400 Systolic blood pressure 112 mm[Hg] Kaya Plotts PARCEL CONTRACTOR.CNM Work Phone: [facility] 02-19-2024 14:27-0400 Body mass index (BMI) [Ratio] 27.12 kg/m2 Maximo Goetz PARCEL CONTRACTOR.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 Work Phone: [facility] 02-19-2024 14:27-0400 Body weight 71.67 kg Maximo Reyesury PARCEL CONTRACTOR.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 Work Phone: [facility] 02-19-2024 14:27-0400 Diastolic blood pressure 60 mm[Hg] Maximo Haury PARCEL CONTRACTOR.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 Work Phone: [facility] 02-19-2024 14:27-0400 Systolic blood pressure 110 mm[Hg] Maximo Haury PARCEL CONTRACTOR.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 Work Phone: [facility] 02-05-2024 10:23-0400 Body mass index (BMI) [Ratio] 26.95 kg/m2 Kaya Plotts PARCEL CONTRACTOR.CNM Work Phone: [facility] 02-05-2024 10:23-0400 Body weight 71.22 kg Kaya Plotts PARCEL CONTRACTOR.CNM Work Phone: [facility] 02-05-2024 10:23-0400 Diastolic blood pressure 58 mm[Hg] Kaya Plotts PARCEL CONTRACTOR.CNM Work Phone: [facility] 02-05-2024 10:23-0400 Systolic blood pressure 110 mm[Hg] Kaya Plotts PARCEL CONTRACTOR.CNM Work Phone: [facility] 01-22-2024 09:57-0400 Body mass index (BMI) [Ratio] 25.58 kg/m2 Kaya Plotts PARCEL CONTRACTOR.CNM Work Phone: [facility] 01-22-2024 09:57-0400 Body weight 67.59 kg Kaya Plotts PARCEL CONTRACTOR.CNM Work Phone: [facility] 01-22-2024 09:57-0400 Diastolic blood pressure 62 mm[Hg] Kaya Plotts PARCEL CONTRACTOR.CNM Work Phone: [facility] 01-22-2024 09:57-0400 Systolic blood pressure 110 mm[Hg] Kaya Plotts PARCEL CONTRACTOR.CNM Work Phone: [facility] 01-14-2024 10:06-0400 Body mass index (BMI) [Ratio] 25.35 kg/m2 Niaaston Chan PARCEL CONTRACTOR.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 Work Phone: [facility] 01-14-2024 10:06-0400 Body temperature 98.91 [degF] Nia Chan PARCEL CONTRACTOR.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 Work Phone: [facility] 01-14-2024 10:06-0400 Body weight 67 kg Naiaston Chan PARCEL CONTRACTOR.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 Work Phone: [facility] 01-14-2024 10:06-0400 Diastolic blood pressure 78 mm[Hg] Nia Chan PARCEL CONTRACTOR.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 Work Phone: [facility] 01-14-2024 10:06-0400 Heart rate 79 /min Nia Chan PARCEL CONTRACTOR.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 Work Phone: [facility] 01-14-2024 10:06-0400 Respiratory rate 18 /min Nia Chan PARCEL CONTRACTOR.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 Work Phone: [facility] 01-14-2024 10:06-0400 SaO2% (BldA) [Mass fraction] 98 % Niaaston Chan PARCEL CONTRACTOR.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 Work Phone: [facility] 01-14-2024 10:06-0400 Systolic blood pressure 121 mm[Hg] Nia Chan PARCEL CONTRACTOR.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 Work Phone: [facility] 01-03-2024 09:59-0400 Body mass index (BMI) [Ratio] 25.23 kg/m2 Kaya Coleman PARCEL CONTRACTOR.CNM Work Phone: [facility] 01-03-2024 09:59-0400 Body weight 66.68 kg Kaya Coleman PARCEL CONTRACTOR.CNM Work Phone: [facility] 01-03-2024 09:59-0400 Diastolic blood pressure 66 mm[Hg] Kaya Plotts PARCEL CONTRACTOR.CNM Work Phone: [facility] 01-03-2024 09:59-0400 Systolic blood pressure 100 mm[Hg] Kaya Jovelts PARCEL CONTRACTOR.CNM Work Phone: [facility] 12-26-2023 09:37-0400 Body mass index (BMI) [Ratio] 26.09 kg/m2 Kaya Plotts PARCEL CONTRACTOR.CNM Work Phone: [facility] 12-26-2023 09:37-0400 Body weight 68.95 kg Kaya Plotts PARCEL CONTRACTOR.CNM Work Phone: [facility] 12-26-2023 09:37-0400 Diastolic blood pressure 64 mm[Hg] Kaya Plotts PARCEL CONTRACTOR.CNM Work Phone: [facility] 12-26-2023 09:37-0400 Systolic blood pressure 100 mm[Hg] Kaya Plotts PARCEL CONTRACTOR.CNM Work Phone: [facility] 12-05-2023 14:21-0400 Body mass index (BMI) [Ratio] 23.69 kg/m2 Palmira Palmer MD Work Phone: [facility] 12-05-2023 14:21-0400 Body weight 62.6 kg Palmira Palmer MD Work Phone: [facility] 12-05-2023 14:21-0400 Diastolic blood pressure 60 mm[Hg] Palmira Palmer MD Work Phone: [facility] 12-05-2023 14:21-0400 Systolic blood pressure 102 mm[Hg] Palmira Palmer MD Work Phone: [facility] 11-21-2023 11:16-0400 Body height 162.6 cm Maximo Goetz PARCEL CONTRACTOR.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 Work Phone: [facility] 11-21-2023 11:16-0400 Body mass index (BMI) [Ratio] 24.07 kg/m2 Maximo Hahomer PARCEL CONTRACTOR.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 Work Phone: [facility] 11-21-2023 11:16-0400 Body weight 63.59 kg Maximo Goetz PARCEL CONTRACTOR.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 Work Phone: [facility] 11-21-2023 11:16-0400 Diastolic blood pressure 70 mm[Hg] Maximocandelario Goetz PARCEL CONTRACTOR.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 Work Phone: [facility] 11-21-2023 11:16-0400 Systolic blood pressure 110 mm[Hg] Maximo Goetz JANELLE Work Phone: [facility] 08-23-2023 13:39-0400 Body height 162.56 cm No Primary Care Physician [facility] 08-23-2023 13:39-0400 Body mass index (BMI) [Ratio] 21.9 kg/m2 No Primary Care Physician [facility] 08-23-2023 13:39-0400 Body weight 58.05 kg No Primary Care Physician [facility] 08-23-2023 13:39-0400 Diastolic blood pressure 62 mm[Hg] No Primary Care Physician [facility] 08-23-2023 13:39-0400 Systolic blood pressure 104 mm[Hg] No Primary Care Physician [facility] 08-15-2023 13:06-0400 Body height 162.56 cm No Primary Care Physician [facility] 08-15-2023 13:04-0400 Body mass index (BMI) [Ratio] 21.7 kg/m2 No Primary Care Physician [facility] 08-15-2023 13:04-0400 Body weight 57.37 kg No Primary Care Physician [facility] 08-15-2023 13:04-0400 Diastolic blood pressure 80 mm[Hg] No Primary Care Physician [facility] 08-15-2023 13:04-0400 Systolic blood pressure 116 mm[Hg] No Primary Care Physician [facility] 07-29-2023 18:00-0400 Body temperature 97.8 [degF] No Primary Care Physician [facility] 07-29-2023 18:00-0400 Diastolic blood pressure 59 mm[Hg] No Primary Care Physician [facility] 07-29-2023 18:00-0400 Heart rate 92 /min No Primary Care Physician [facility] 07-29-2023 18:00-0400 Respiratory rate 16 /min No Primary Care Physician [facility] 07-29-2023 18:00-0400 Systolic blood pressure 101 mm[Hg] No Primary Care Physician [facility] 07-29-2023 14:17-0400 Body height 162.56 cm No Primary Care Physician [facility] 07-29-2023 14:17-0400 Body mass index (BMI) [Ratio] 20.5 kg/m2 No Primary Care Physician [facility] 07-29-2023 14:17-0400 Body temperature 97.2 [degF] No Primary Care Physician [facility] 07-29-2023 14:17-0400 Body weight 54.4 kg No Primary Care Physician [facility] 07-29-2023 14:17-0400 Diastolic blood pressure 87 mm[Hg] No Primary Care Physician [facility] 07-29-2023 14:17-0400 Heart rate 63 /min No Primary Care Physician [facility] 07-29-2023 14:17-0400 Respiratory rate 14 /min No Primary Care Physician [facility] 07-29-2023 14:17-0400 SaO2% (BldA) [Mass fraction] 99 % No Primary Care Physician [facility] 07-29-2023 14:17-0400 Systolic blood pressure 126 mm[Hg] No Primary Care Physician [facility] 05-22-2023 15:10-0500 Body temperature 98.5 [degF] No Primary Care Physician [facility] 05-22-2023 15:10-0500 Diastolic blood pressure 65 mm[Hg] No Primary Care Physician [facility] 05-22-2023 15:10-0500 Heart rate 76 /min No Primary Care Physician [facility] 05-22-2023 15:10-0500 Respiratory rate 16 /min No Primary Care Physician [facility] 05-22-2023 15:10-0500 SaO2% (BldA) [Mass fraction] 100 % No Primary Care Physician [facility] 05-22-2023 15:10-0500 Systolic blood pressure 101 mm[Hg] No Primary Care Physician [facility] 05-22-2023 11:24-0500 Body height 162.56 cm No Primary Care Physician [facility] 05-22-2023 11:24-0500 Body mass index (BMI) [Ratio] 21.9 kg/m2 No Primary Care Physician [facility] 05-22-2023 11:24-0500 Body weight 58 kg No Primary Care Physician [facility] 05-21-2023 13:59-0500 Body mass index (BMI) [Ratio] 22.2 kg/m2 No Primary Care Physician [facility] 05-21-2023 13:59-0500 Body weight 58.74 kg No Primary Care Physician [facility] 05-21-2023 13:59-0500 Diastolic blood pressure 78 mm[Hg] No Primary Care Physician [facility] 05-21-2023 13:59-0500 Systolic blood pressure 124 mm[Hg] No Primary Care Physician [facility] 05-20-2023 22:33-0500 Heart rate 88 /min BROWN GRAVES MD [facility] 05-20-2023 22:33-0500 Respiratory rate 18 /min BROWN GRAVES MD [facility] 05-20-2023 20:25-0500 Body temperature 98.06 [degF] BROWN GRAVES MD [facility] 05-20-2023 20:25-0500 Diastolic Blood Pressure Non-Invasive 81 mm[Hg] BROWN GRAVES MD [facility] 05-20-2023 20:25-0500 Heart rate 102 /min BROWN GRAVES MD [facility] 05-20-2023 20:25-0500 Respiratory rate 16 /min BROWN GRAVES MD [facility] 05-20-2023 20:25-0500 Systolic Blood Pressure Non-Invasive 131 mm[Hg] BROWN GRAVES MD [facility] 05-20-2023 19:48-0500 Body height 162.56 cm No Primary Care Physician [facility] 05-20-2023 19:48-0500 Body mass index (BMI) [Ratio] 22.2 kg/m2 No Primary Care Physician [facility] 05-20-2023 19:48-0500 Body temperature 97.2 [degF] No Primary Care Physician [facility] 05-20-2023 19:48-0500 Body weight 58.83 kg No Primary Care Physician [facility] 05-20-2023 19:48-0500 Diastolic blood pressure 76 mm[Hg] No Primary Care Physician [facility] 05-20-2023 19:48-0500 Heart rate 80 /min No Primary Care Physician [facility] 05-20-2023 19:48-0500 Respiratory rate 18 /min No Primary Care Physician [facility] 05-20-2023 19:48-0500 SaO2% (BldA) [Mass fraction] 100 % No Primary Care Physician [facility] 05-20-2023 19:48-0500 Systolic blood pressure 117 mm[Hg] No Primary Care Physician [facility] 04-30-2023 13:40-0500 Body height 162.56 cm No Primary Care Physician [facility] 04-30-2023 13:39-0500 Body mass index (BMI) [Ratio] 21.3 kg/m2 No Primary Care Physician [facility] 04-30-2023 13:39-0500 Body weight 56.35 kg No Primary Care Physician [facility] 04-30-2023 13:39-0500 Diastolic blood pressure 72 mm[Hg] No Primary Care Physician [facility] 04-30-2023 13:39-0500 Systolic blood pressure 118 mm[Hg] No Primary Care Physician [facility] 04-16-2023 13:15-0500 Body height 162.56 cm No Primary Care Physician [facility] 04-16-2023 13:14-0500 Body mass index (BMI) [Ratio] 20.1 kg/m2 No Primary Care Physician [facility] 04-16-2023 13:14-0500 Body weight 53.18 kg No Primary Care Physician [facility] 04-16-2023 13:14-0500 Diastolic blood pressure 77 mm[Hg] No Primary Care Physician [facility] 04-16-2023 13:14-0500 Systolic blood pressure 120 mm[Hg] No Primary Care Physician [facility] 04-03-2023 11:41-0500 Body mass index (BMI) [Ratio] 20 kg/m2 No Primary Care Physician [facility] 04-03-2023 11:41-0500 Body weight 53.07 kg No Primary Care Physician [facility] 04-03-2023 11:41-0500 Diastolic blood pressure 70 mm[Hg] No Primary Care Physician [facility] 04-03-2023 11:41-0500 Systolic blood pressure 104 mm[Hg] No Primary Care Physician [facility] 02-13-2023 09:11-0400 Body mass index (BMI) [Ratio] 20 kg/m2 No Primary Care Physician [facility] 02-13-2023 09:11-0400 Body weight 53.12 kg No Primary Care Physician [facility] 02-13-2023 09:11-0400 Diastolic blood pressure 62 mm[Hg] No Primary Care Physician [facility] 02-13-2023 09:11-0400 Systolic blood pressure 104 mm[Hg] No Primary Care Physician [facility] 01-10-2023 13:25-0400 Body temperature 98 [degF] No Primary Care Physician [facility] 01-10-2023 13:25-0400 Diastolic blood pressure 68 mm[Hg] No Primary Care Physician [facility] 01-10-2023 13:25-0400 Heart rate 56 /min No Primary Care Physician [facility] 01-10-2023 13:25-0400 Respiratory rate 18 /min No Primary Care Physician [facility] 01-10-2023 13:25-0400 SaO2% (BldA) [Mass fraction] 100 % No Primary Care Physician [facility] 01-10-2023 13:25-0400 Systolic blood pressure 98 mm[Hg] No Primary Care Physician [facility] 01-10-2023 10:08-0400 Body mass index (BMI) [Ratio] 19.3 kg/m2 No Primary Care Physician [facility] 01-10-2023 10:08-0400 Body weight 51 kg No Primary Care Physician [facility] 12-08-2022 16:01-0400 Respiratory rate 16 /min No Primary Care Physician [facility] 12-08-2022 12:38-0400 Body temperature 99.5 [degF] No Primary Care Physician [facility] 12-08-2022 12:38-0400 Diastolic blood pressure 69 mm[Hg] No Primary Care Physician [facility] 12-08-2022 12:38-0400 Heart rate 75 /min No Primary Care Physician [facility] 12-08-2022 12:38-0400 SaO2% (BldA) [Mass fraction] 100 % No Primary Care Physician [facility] 12-08-2022 12:38-0400 Systolic blood pressure 111 mm[Hg] No Primary Care Physician [facility] 12-08-2022 12:25-0400 Body height 162.56 cm No Primary Care Physician [facility] 12-08-2022 12:25-0400 Body mass index (BMI) [Ratio] 20.6 kg/m2 No Primary Care Physician [facility] 12-08-2022 12:25-0400 Body weight 54.61 kg No Primary Care Physician [facility] 11-10-2022 09:22-0400 Body temperature 97.8 [degF] No Primary Care Physician [facility] 11-10-2022 09:22-0400 Diastolic blood pressure 76 mm[Hg] No Primary Care Physician [facility] 11-10-2022 09:22-0400 Heart rate 64 /min No Primary Care Physician [facility] 11-10-2022 09:22-0400 Respiratory rate 14 /min No Primary Care Physician [facility] 11-10-2022 09:22-0400 SaO2% (BldA) [Mass fraction] 99 % No Primary Care Physician [facility] 11-10-2022 09:22-0400 Systolic blood pressure 124 mm[Hg] No Primary Care Physician [facility] 11-10-2022 07:04-0400 Body height 162.56 cm No Primary Care Physician [facility] 11-10-2022 07:04-0400 Body mass index (BMI) [Ratio] 19.7 kg/m2 No Primary Care Physician [facility] 11-10-2022 07:04-0400 Body weight 52.16 kg No Primary Care Physician [facility] 09-18-2022 11:29-0400 Body mass index (BMI) [Ratio] 20.2 kg/m2 No Primary Care Physician [facility] 09-18-2022 11:29-0400 Body temperature 98.4 [degF] No Primary Care Physician [facility] 09-18-2022 11:29-0400 Body weight 53.52 kg No Primary Care Physician [facility] 09-18-2022 11:29-0400 Diastolic blood pressure 70 mm[Hg] No Primary Care Physician [facility] 09-18-2022 11:29-0400 Heart rate 84 /min No Primary Care Physician [facility] 09-18-2022 11:29-0400 Respiratory rate 14 /min No Primary Care Physician [facility] 09-18-2022 11:29-0400 SaO2% (BldA) [Mass fraction] 99 % No Primary Care Physician [facility] 09-18-2022 11:29-0400 Systolic blood pressure 100 mm[Hg] No Primary Care Physician [facility] 09-04-2022 09:34-0400 Body height 162.56 cm No Primary Care Physician [facility] 09-04-2022 09:26-0400 Body mass index (BMI) [Ratio] 20.8 kg/m2 No Primary Care Physician [facility] 09-04-2022 09:26-0400 Body weight 55.05 kg No Primary Care Physician [facility] 09-04-2022 09:26-0400 Diastolic blood pressure 64 mm[Hg] No Primary Care Physician [facility] 09-04-2022 09:26-0400 Systolic blood pressure 102 mm[Hg] No Primary Care Physician [facility] 10-04-2021 15:18-0400 Heart rate 82 /min Dr. Deysi Soriano Work Phone: [facility] Work Phone: 10-04-2021 15:18-0400 Respiratory rate 17 /min Dr. Deysi Soriano Work Phone: [facility] Work Phone: 10-04-2021 15:18-0400 SaO2% (BldA) [Mass fraction] 99 % Dr. Deysi Soriano Work Phone: [facility] Work Phone: 10-04-2021 11:02-0400 Body height 162.[address] Deysi Soriano Work Phone: [facility] Work Phone: 10-04-2021 11:02-0400 Body mass index (BMI) [Ratio] 21.9 kg/m2 Dr. Deysi Soriano Work Phone: [facility] Work Phone: 10-04-2021 11:02-0400 Body temperature 98 [degF] Dr. Deysi Soriano Work Phone: [facility] Work Phone: 10-04-2021 11:02-0400 Body weight [address] Deysi Soriano Work Phone: [facility] Work Phone: 10-04-2021 11:02-0400 Diastolic blood pressure 73 mm[Hg] Dr. Deysi Soriano Work Phone: [facility] Work Phone: 10-04-2021 11:02-0400 Systolic blood pressure 104 mm[Hg] Dr. Deysi Soriano Work Phone: [facility] Work Phone: 07-07-2021 12:40-0500 Body height 162.[address] Deysi Soriano Work Phone: [facility] Work Phone: 07-07-2021 12:40-0500 Body mass index (BMI) [Ratio] 22.5 kg/m2 Dr. Deysi Soriano Work Phone: [facility] Work Phone: 07-07-2021 12:40-0500 Body weight 59.[address] Deysi Soriano Work Phone: [facility] Work Phone: 07-07-2021 12:40-0500 Diastolic blood pressure 78 mm[Hg] Dr. Deysi Soriano Work Phone: [facility] Work Phone: 07-07-2021 12:40-0500 Systolic blood pressure 102 mm[Hg] Dr. Deysi Soriano Work Phone: [facility] Work Phone: 04-11-2021 15:03-0500 Respiratory rate 18 /min Dr. Deysi Soriano Work Phone: [facility] Work Phone: 04-11-2021 12:01-0500 Body mass index (BMI) [Ratio] 23.1 kg/m2 Dr. Deysi Soriano Work Phone: [facility] Work Phone: 04-11-2021 12:01-0500 Body temperature 99 [degF] Dr. Deysi Soriano Work Phone: [facility] Work Phone: 04-11-2021 12:01-0500 Body weight 61.[address] Deysi Soriano Work Phone: [facility] Work Phone: 04-11-2021 12:01-0500 Diastolic blood pressure 78 mm[Hg] Dr. Deysi Soriano Work Phone: [facility] Work Phone: 04-11-2021 12:01-0500 Heart rate 74 /min Dr. Deysi Soriano Work Phone: [facility] Work Phone: 04-11-2021 12:01-0500 SaO2% (BldA) [Mass fraction] 100 % Dr. Deysi Soriano Work Phone: [facility] Work Phone: 04-11-2021 12:01-0500 Systolic blood pressure 114 mm[Hg] Dr. Deysi Soriano Work Phone: [facility] Work Phone: Encounters Encounter Date Encounter Type Care Provider Facility Start: 02-10-2025 End: 02-10-2025 ambulatory [facility] Facility:[facility] Start: 02-09-2025 End: 02-09-[address] Shy Henry MD -[facility] Work Phone: Start: 02-09-2025 End: 02-09-2025 ambulatory No Primary Care Physician -[facility] Start: 01-13-2025 End: 01-13-2025 ambulatory DAFNE BRADLEY Facility:[facility] Start: 01-13-2025 End: 01-13-2025 Patient encounter procedure Dafne Rothmanguru LUIS Work Phone: Psychiatry Comment on above: APPOINTMENT CANCELLE D (Primary Dx) Start: 01-13-2025 End: 01-13-2025 Telemedicine consultation with patient Dafne Perezvignesh LUIS Work Phone: Psychiatry Start: 01-07-2025 End: 01-13-2025 Patient encounter procedure Kayajennifer Coleman APRN.CNM Work Phone: OB/Gynecology Comment on above: Encounter for superv ision of normal in multigravida in first trimester ([facility]) (Primary Dx); 15 weeks gestation of ([facility]); Nausea and vomiting during ([facility]); PTSD (post-traumatic stress disorder); UTI (urinary tract infection) in , antepartum ([facility]) Refill Request Start: 01-07-2025 End: 01-07-2025 ambulatory KAYAJENNIFER COLEMAN Facility:[facility] Start: 12-21-2024 End: 12-21-2024 Telephone encounter Chataivana Braun APRN.CNM Work Phone: OB/Gynecology Comment on above: Nausea Start: 12-16-2024 End: 12-16-2024 Patient encounter procedure [employer] [employer] [facility] Comment on above: 12 weeks gestation o f ([facility]) (Primary Dx); Suspected anomaly not found Start: 12-16-2024 End: 12-16-2024 ambulatory Rusty Palma MD Work Phone: OB/Gynecology Comment on above: Nipt Start: 12-14-2024 End: 12-14-2024 Office outpatient visit 15 minutes Macarena Mehta PA-C Work Phone: [facility] Comment on above: Urinary frequency (P rimary Dx); Dysuria Start: 12-14-2024 End: 12-14-2024 ambulatory MACARENA MEHTA Facility:[facility] Start: 12-14-2024 End: 12-14-2024 ambulatory Dafne Palomino Stephankaterinavignesh LUIS Work Phone: Psychiatry Comment on above: NO SHOW (Primary Dx) Start: 12-14-2024 End: 12-14-2024 Telemedicine consultation with patient Dafne Bradley JANELLE Work Phone: Psychiatry Start: 11-28-2024 End: 11-28-2024 Follow-up encounter Teresita Hargrove APRN.CNP Work Phone: [facility] Start: 11-26-2024 End: 11-26-2024 [facility] Start: 11-26-2024 End: 11-26-2024 Patient encounter [facility] Work Phone: [facility] Comment on above: Missed menses; Encounter for supervision of normal in multigravida in first trimester ([facility]); with uncertain dates, antepartum ([facility]); 7 weeks gestation of ([facility]); PTSD (post-traumatic stress disorder); Depression with anxiety; History of miscarriage Start: 11-25-2024 End: 11-25-2024 Office outpatient visit 25 minutes Maico Sosa APRN.CNP Work Phone: [facility] Comment on above: Urinary frequency (P rimary Dx) Start: 11-25-2024 End: 11-25-2024 ambulatory MAICO SOSA Facility:[facility] Start: 11-12-2024 End: 11-12-2024 Telephone encounter Nurse Lawn Service Supervisor Ines Mejía Work Phone: Obstetrics/Gynecolog y Comment on above: PRAF Start: 11-11-2024 End: 01-11-2025 Follow-up encounter Kaya Coleman APRN.CNM Work Phone: OB/Gynecology Start: 11-11-2024 End: 11-11-2024 Patient encounter procedure Kaya Coleman APRN.CNM Work Phone: OB/Gynecology Comment on above: Encounter for superv ision of normal in multigravida in first trimester ([facility]) (Primary Dx); Missed menses; with uncertain dates, antepartum ([facility]); 7 weeks gestation of ([facility]); PTSD (post-traumatic stress disorder); Depression with anxiety; History of miscarriage Start: 11-11-2024 End: 11-11-2024 ambulatory [facility] Facility:[facility] Start: 11-05-2024 End: 01-05-2025 Follow-up encounter Elma Aguilar APRN.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 Work Phone: [facility] [employer] [facility] Start: 11-03-2024 Non-patient / Non-visit Dr. Shy stern MD -[facility] Work Phone: Start: 11-02-2024 End: 11-02-2024 Office outpatient visit 25 minutes Maico Sosa APRN.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 Work Phone: [employer] [facility] Comment on above: Urinary frequency (P rimary Dx) Start: 11-02-2024 End: [facility] Start: 10-20-2024 End: 10-20-2024 Telephone encounter Rusty Palma MD Work Phone: OB/Gynecology Start: 10-15-2024 End: 10-15-2024 [facility] Dafne Bradley APRN.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 Work Phone: Psychiatry Comment on above: PTSD (post-traumatic stress disorder) (Primary Dx); Panic disorder with agoraphobia; Social anxiety disorder; Medication side effect, initial encounter; Nightmares associated with chronic post-traumatic stress disorder; Psychosocial stressors; Abnormal weight loss; Decreased appetite; Low serum potassium level; Encounter for long-term (current) use of medications; History of miscarriage Start: 10-15-2024 End: 10-15-2024 [facility] DAFNE BRADLEY Facility:[facility] Start: 10-14-2024 End: 10-14-2024 Telephone encounter Rusty Palma MD Work Phone: OB/Gynecology Start: 10-14-2024 End: 10-14-2024 Patient encounter procedure Rusty Palma MD Work Phone: OB/Gynecology Comment on above: Pelvic pain in femal e (Primary Dx); Endometriosis; Endometriosis of uterosacral ligament; Recurrent urinary tract infection Start: 10-14-2024 End: 10-14-2024 ambulatory RUSTY PALMA Facility:[facility] Start: 09-30-2024 End: 09-30-2024 Emergency department patient visit No Primary Care Physician -Emergency Department Work Phone: Start: 07-22-2024 End: 07-22-2024 ambulatory SELF Facility:[facility] Start: 07-22-2024 End: 07-22-2024 Patient encounter procedure Kaya Coleman APRN.CNM Work Phone: OB/Gynecology Comment on above: Missed menses (Prima ry Dx) Start: 07-09-2024 End: 07-09-2024 Telephone encounter Dafne Bradley APRN.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 Work Phone: Neurology Start: 07-09-2024 End: 07-09-2024 ambulatory Dafne Bradley PARCEL CONTRACTOR.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 Work Phone: Psychiatry Comment on above: NO SHOW (Primary Dx) Start: 07-09-2024 End: 07-09-2024 Telemedicine consultation with patient Dafne Candelario Bradley APRN.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 Work Phone: Psychiatry Start: 07-03-2024 End: 07-03-2024 Telephone encounter Jan Cantu MD Work Phone: OB/Gynecology Comment on above: Start: 06-30-2024 End: 06-30-2024 ambulatory Kaya Coleman PARCEL CONTRACTOR.CNM Work Phone: OB/Gynecology Comment on above: Positive PT Start: 06-30-2024 End: 06-30-2024 Telephone encounter James Hargrove MD Work Phone: OB/Gynecology Comment on above: Faint + te sts Start: 06-16-2024 End: 08-16-2024 Follow-up encounter Palmira Palmer MD Work Phone: LOGIN ONLY Start: 06-05-2024 End: 06-05-2024 Orders Only Kaya Coleman APRN.CNM Work Phone: Itz Guerre[facility] Start: 06-04-2024 End: 06-04-2024 ambulatory DAFNE BRADLEY Facility:[facility] Start: 06-04-2024 End: 06-04-2024 Patient encounter procedure Palmira Palmer MD Work Phone: OB/Gynecology Comment on above: care and examination (Primary Dx); Screening for malignant neoplasm of cervix; Encounter for initial prescription of intrauterine contraceptive device (IUD) Start: 05-07-2024 End: 05-07-2024 [facility] Dafne Bradley APRN.CNP Work Phone: Psychiatry Comment on above: PTSD (post-traumatic stress disorder) (Primary Dx); Panic disorder with agoraphobia; Social anxiety disorder; anxiety; Mild episode of recurrent major depressive disorder (HCC); Decreased appetite; Malaise and fatigue; Abnormal weight loss; Marijuana use; Complicated grief Start: 04-30-2024 End: 04-30-2024 [facility] Start: 04-30-2024 End: 04-30-2024 Patient encounter procedure Kaya Coleman APRN.CNNancy Work Phone: OB/Gynecology Comment on above: History of recurrent UTI (urinary tract infection) (Primary Dx); Dysuria Start: 04-15-2024 End: 04-26-2024 Telephone encounter Kaya Coleman APRN.CNM Work Phone: OB/Gynecology Start: 04-15-2024 End: 04-15-2024 ambulatory KAYA COLEMAN Facility:[facility] Start: 04-15-2024 End: 04-15-2024 Patient encounter procedure Kaya Coleman APRN.CNNancy Work Phone: OB/Gynecology Comment on above: 2 weeks f ollow-up (Primary Dx); Post depression Start: 03-30-2024 End: 03-30-2024 Telephone encounter Chata Braun APRN.CNM Work Phone: OB/Gynecology Comment on above: Question Start: 03-25-2024 End: 03-30-2024 ambulatory Kaya Coleman PARCEL CONTRACTOR.SHANTELLM Work Phone: OB/Gynecology Comment on above: Ob Delivery Note Start: 03-25-2024 End: 03-26-2024 Evaluation and management of inpatient Kaya Coleman Facility:[facility] Start: 03-19-2024 End: 03-19-2024 Patient encounter procedure Whi Tech 1 Lawn Service Supervisor [facility]aternal [facility] Comment on above: Encounter for ultras ound to check growth (Primary Dx); Circumvallate placenta during in third trimester, antepartum; 38 weeks gestation of Encounter for superv ision of other normal in third trimester (Primary Dx); Circumvallate placenta during in third trimester, antepartum; 38 weeks gestation of ; Polyhydramnios in third trimester complication, single or unspecified fetus; Depression with anxiety Start: 03-19-2024 End: 03-19-2024 ambulatory KAYA COLEMAN Facility:[facility] Start: 03-16-2024 End: 03-16-2024 Telephone encounter Kaya Coleman PARCEL CONTRACTOR.SHANTELLM Work Phone: OB/Gynecology Comment on above: Results Start: 03-13-2024 End: 03-13-2024 ambulatory Allison Gonzalez MA [facility] Start: 03-13-2024 End: 03-13-2024 Patient encounter procedure Allison Gonzalez MA [facility] Comment on above: Population Health Na vigation Outreach (Ob/peds) Start: 03-12-2024 End: 03-12-2024 Telephone encounter Kaya Coleman PARCEL CONTRACTOR.CNM Work Phone: OB/Gynecology Start: 03-12-2024 End: 03-12-2024 ambulatory KAYA COLEMAN Facility:[facility] Start: 03-12-2024 End: 03-12-2024 Patient encounter procedure Kaya Coleman PARCEL CONTRACTOR.CNM Work Phone: OB/Gynecology Comment on above: Encounter for superv ision of other normal in third trimester (Primary Dx); Circumvallate placenta during in third trimester, antepartum; 37 weeks gestation of ; Pelvic pressure in Start: 03-11-2024 End: 03-11-2024 ambulatory PALMIRA PALMER Facility:[facility] Start: 03-11-2024 End: 03-11-2024 Office outpatient visit 15 minutes Palmira Palmer MD Work Phone: OB/Gynecology Comment on above: Encounter for superv ision of other normal in third trimester (Primary Dx); Circumvallate placenta during in third trimester, antepartum; 37 weeks gestation of Start: 03-10-2024 End: 03-10-2024 Telephone encounter Ingrid Matos APRN.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 Work Phone: OB/Gynecology Comment on above: Results Start: 03-09-2024 End: 03-09-2024 ambulatory JAN CANTU Facility:[facility] Start: 03-09-2024 End: 03-09-2024 Patient encounter procedure Jan Cantu MD Work Phone: OB/Gynecology Comment on above: Encounter for superv ision of other normal in third trimester (Primary Dx); 37 weeks gestation of ; Dysuria; Vaginal odor Start: 03-07-2024 End: 03-09-2024 ambulatory Kaya Coleman APRN.CNM Work Phone: OB/Gynecology Comment on above: Uti Start: 03-03-2024 End: 03-03-2024 ambulatory JAMES HARGROVE Facility:[facility] Start: 03-03-2024 End: 03-03-2024 Patient encounter procedure James Hargrove MD Work Phone: OB/Gynecology Comment on above: 36 weeks gestation o f (Primary Dx); Encounter for supervision of other normal in third trimester Start: 02-27-2024 End: 02-27-2024 ambulatory KAYA COLEMAN Facility:[facility] Start: 02-27-2024 End: 02-27-2024 Patient encounter procedure Kaya Coleman APRN.CNM Work Phone: OB/Gynecology Comment on above: Encounter for superv ision of other normal in third trimester (Primary Dx); Circumvallate placenta during in third trimester, antepartum; Heartburn during in third trimester; 35 weeks gestation of Start: 02-24-2024 End: 02-24-2024 Telephone encounter Chata Braun APRN.CNM Work Phone: OB/Gynecology Start: 02-24-2024 End: 02-24-2024 ambulatory Chata Braun Facility:[facility] Start: 02-19-2024 End: 02-19-2024 ambulatory Maximo Sofy LUIS Work Phone: OB/Gynecology Comment on above: RSV/Flu Start: 02-19-2024 End: 02-19-2024 E-mail encounter from caregiver Maximo Reyeshomer LUIS Work Phone: OB/Gynecology Start: 02-19-2024 End: 02-19-2024 Patient encounter procedure Maximo Goetz APRN.CNP Work Phone: OB/Gynecology Comment on above: Encounter for superv ision of other normal in third trimester (Primary Dx); 34 weeks gestation of ; Circumvallate placenta during in third trimester, antepartum; Heartburn during in third trimester Encounter for ultras ound to check growth (Primary Dx); Circumvallate placenta during in third trimester, antepartum; 34 weeks gestation of Start: 02-07-2024 End: 02-07-2024 Telephone encounter Nurse Lawn Service Supervisor Ines Mejía Work Phone: Obstetrics/Gynecolog y Comment on above: PRAF Start: 02-05-2024 End: 02-05-2024 Patient encounter procedure Kaya Coleman APRN.CNM Work Phone: OB/Gynecology Comment on above: 32 weeks gestation o f (Primary Dx); Circumvallate placenta during in third trimester, antepartum; Encounter for supervision of other normal in third trimester; Heartburn during in second trimester Start: 02-04-2024 End: 02-04-2024 Telephone encounter Muriel Estrada MD Work Phone: OB/Gynecology Comment on above: Care Start: 01-22-2024 End: 01-22-2024 Patient encounter procedure Kaya Coleman PARCEL CONTRACTOR.CNM Work Phone: OB/Gynecology Comment on above: Circumvallate placen ta during in third trimester, antepartum (Primary Dx); 30 weeks gestation of ; Encounter for supervision of other normal in third trimester; Need for vaccination Start: 01-17-2024 End: 01-17-2024 Telephone encounter Chata Kade PARCEL CONTRACTOR.CNM Work Phone: OB/Gynecology Comment on above: OB Shortness of [place] Start: 01-14-2024 End: 01-14-2024 Patient encounter procedure Nia Chan PARCEL CONTRACTOR.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 [facility] Comment on above: Bronchitis (Primary Dx); Wheezing Start: 01-07-2024 End: 01-07-2024 Telephone encounter Nurse Lawn Service Supervisor Ines Mejía Work Phone: Obstetrics/Gynecolog y Comment on above: PRAF Start: 01-03-2024 End: 01-03-2024 Patient encounter procedure Kaya Coleman APRN.CNM Work Phone: OB/Gynecology Comment on above: Heartburn during pre gnancy in second trimester (Primary Dx); Acute nonintractable headache, unspecified headache type; Encounter for supervision of other normal in third trimester; 28 weeks gestation of ; Need for vaccination Start: 12-26-2023 End: 12-26-2023 Telephone encounter Kaya Coleman APRN.CNM Work Phone: OB/Gynecology Comment on above: Results Start: 12-26-2023 End: 12-26-2023 Patient encounter procedure Kaya Coleman PARCEL CONTRACTOR.CNM Work Phone: OB/Gynecology Comment on above: Acute nonintractable headache, unspecified headache type (Primary Dx); Heartburn during in second trimester; 26 weeks gestation of Start: 12-06-2023 ambulatory Maximo BARTLETT RN.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 Work Phone: OB/Gynecology Comment on above: Ultrasound Start: 12-05-2023 End: 12-05-2023 Office outpatient visit 15 minutes Palmira Palmer MD Work Phone: OB/Gynecology Comment on above: 23 weeks gestation o f (Primary Dx); Encounter for supervision of high risk in second trimester, antepartum; Benign gestational thrombocytopenia in second trimester (HCC) Start: 12-05-2023 End: 12-05-2023 Patient encounter procedure Lawn Service Supervisor [facility] Work Phone: OB/Gynecology Comment on above: Encounter for anatomic survey (Primary Dx); Circumvallate placenta, second trimester; Placental abnormality in second trimester; 23 weeks gestation of Start: 11-26-2023 Telephone encounter Muriel Estrada MD Work Phone: OB/Gynecology Start: 11-22-2023 Telephone encounter Car Attendant RN Obstetrics/Gynecolog y Comment on above: PRAF Start: 11-21-2023 End: 11-21-2023 Patient encounter procedure Maximo Goetz APRN.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 Work Phone: OB/Gynecology Comment on above: Encounter for superv ision of high risk in second trimester, antepartum (Primary Dx); 21 weeks gestation of ; with care elsewhere in second trimester; Depression with anxiety; History of recurrent UTI (urinary tract infection); History of miscarriage; Circumvallate placenta, second trimester; Dysuria Start: 11-14-2023 ambulatory Josefina steen MD Work Phone: [place] [facility] Comment on above: Urine culture Start: 11-14-2023 E-mail encounter fro m caregiver Josefina Elias MD Work Phone: [place] [facility] Start: 11-12-2023 End: 11-13-2023 ambulatory [facility] Facility[facility] Start: 11-12-2023 Emergency department patient visit [facility] Start: 11-12-2023 End: 11-13-2023 Emergency department patient visit [facility] Facility[facility] Start: 10-31-2023 Telephone encounter Muriel Estrada MD Work Phone: OB/Gynecology Comment on above: Care Start: 10-29-2023 End: 10-29-2023 ambulatory MD NO PRIMARY CARE [facility] Start: 08-30-2023 End: 08-30-2023 ambulatory No Primary Care Physician [facility] Work Phone: Start: 08-30-2023 End: 08-30-2023 Patient encounter procedure No Primary Care Physician [facility]-Laboratory Work Phone: Start: 08-23-2023 End: 08-23-2023 Patient encounter procedure No Primary Care Physician [facility] [place] [facility] Work Phone: Start: 08-15-2023 End: 08-15-2023 ambulatory No Primary Care Physician [facility] Work Phone: Start: 08-15-2023 End: 08-15-2023 Patient encounter procedure No Primary Care Physician [facility]-Laboratory, Specimen Work Phone: Start: 08-15-2023 End: 08-15-2023 Patient encounter procedure No Primary Care Physician [facility] [place] [facility] Work Phone: Start: 08-13-2023 End: 08-13-2023 ambulatory No Primary Care Physician [facility] Work Phone: Start: 08-13-2023 End: 08-13-2023 Patient encounter procedure No Primary Care Physician [facility]-Ultrasound, [facility] Work Phone: Start: 08-12-2023 End: 08-12-2023 ambulatory No Primary Care Physician [facility] Work Phone: Start: 08-12-2023 End: 08-12-2023 Patient encounter procedure No Primary Care Physician [facility]Labor[facility] Work Phone: Start: 07-29-2023 End: 07-29-2023 Emergency department patient visit No Primary Care Physician [facility]-Emergency Department Work Phone: Start: 07-25-2023 End: 07-25-2023 ambulatory No Primary Care Physician [facility] Work Phone: Start: 07-25-2023 End: 07-25-2023 Patient encounter procedure No Primary Care Physician [facility] Work Phone: Start: 07-23-2023 End: 07-23-2023 ambulatory No Primary Care Physician [facility] Work Phone: Start: 07-23-2023 End: 07-23-2023 Patient encounter procedure No Primary Care Physician [facility] Work Phone: Start: 07-06-2023 End: 07-06-2023 ambulatory No Primary Care Physician [facility] Work Phone: Start: 07-06-2023 End: 07-06-2023 [facility] encounter procedure [facility] Start: 05-22-2023 Non-patient / Non-visit No [facility] terri Care Physician [facility] Start: 05-22-2023 End: 05-22-2023 Admission to same day surgery center No Primary Care Physician [facility]-Surgical Day Care Start: 05-22-2023 End: 05-22-2023 ambulatory No Primary Care Physician [facility] Work Phone: Start: 05-21-2023 End: 05-21-2023 Patient encounter procedure No Primary Care Physician [facility] Work Phone: Start: 05-20-2023 End: 05-21-2023 Emergency department patient visit BROWN GRAVES MD Facility:[facility] Start: 05-20-2023 End: 05-20-2023 Emergency department patient visit BROWN GRAVES MD [facility] Start: 05-14-2023 End: 05-14-2023 ambulatory No Primary Care Physician [facility] Work Phone: Start: 05-14-2023 End: 05-14-2023 Patient encounter procedure [facility] Start: 04-30-2023 End: 04-30-2023 Patient encounter procedure No Primary Care Physician [facility] Work Phone: Start: 04-24-2023 End: 04-24-2023 ambulatory No Primary Care Physician [facility] Work Phone: Start: 04-24-2023 End: 04-24-2023 Patient encounter procedure No Primary Care Physician [facility] Work Phone: Start: 2023 End: 2023 Patient encounter procedure No Primary Care Physician [facility] Work Phone: Start: 04-18-2023 End: 04-18-2023 ambulatory No Primary Care Physician [facility] Work Phone: Start: 04-18-2023 End: 04-18-2023 Patient encounter procedure No Primary Care Physician [facility]Labor[facility] Work Phone: Start: 04-16-2023 End: 04-16-2023 ambulatory No Primary Care Physician [facility] Work Phone: Start: 04-16-2023 End: 04-16-2023 Patient encounter procedure No Primary Care Physician [facility] Work Phone: Start: 04-03-2023 End: 04-03-2023 Patient encounter procedure No Primary Care Physician [facility]-Laboratory, Specimen Work Phone: Start: 04-03-2023 End: 04-03-2023 Patient encounter procedure No Primary Care Physician [facility] Work Phone: Start: 04-02-2023 Non-patient / Non-visit No [facility] Physician [facility] Work Phone: Start: 02-13-2023 End: 02-13-2023 Patient encounter procedure No Primary Care Physician [facility] Work Phone: Start: 01-30-2023 End: 01-30-2023 Patient encounter procedure No Primary Care Physician [facility]-Radiology, [place] Work Phone: Start: 01-10-2023 End: 01-10-2023 Admission to same day surgery center No Primary Care Physician [facility] Start: 12-08-2022 End: 12-08-2022 Emergency department patient visit No Primary Care Physician [facility]-Emergency Department Work Phone: Start: 11-10-2022 End: 11-10-2022 Emergency department patient visit No Primary Care Physician [facility]-Emergency Department Work Phone: Start: 09-18-2022 End: 09-18-2022 Patient encounter procedure No Primary Care Physician [facility] Work Phone: Start: 09-04-2022 End: 09-04-2022 Patient encounter procedure No Primary Care Physician [facility] Start: 09-04-2022 End: 09-04-2022 ambulatory No Primary Care Physician [facility] Work Phone: Start: 09-04-2022 End: 09-04-2022 Patient encounter procedure No Primary Care Physician [facility] [place], [facility] Start: 10-04-2021 End: 10-04-2021 Emergency department patient visit Dr. Deysi Soriano Work Phone: [facility]-Emergency Department Start: 08-01-2021 End: 08-01-[address] Deysi Soriano Work Phone: [facility]-Ultrasound, [facility] Start: 07-07-2021 End: 07-07-[address] Deysi Soriano Work Phone: [facility]-Laboratory, Specimen Start: 07-07-2021 End: 07-07-[address] Deysi Soriano Work Phone: [facility] Start: 04-11-2021 End: 04-11-2021 Emergency department patient visit Dr. Desyi Soriano Work Phone: [facility]-Emergency Department Start: 03-03-2017 End: 03-04-2017 Emergency department patient visit GEOVANNY CLINTON Facility:[id number] Procedures Date Procedure Procedure Detail Performing Clinician Start: 01-07-2025 Urnls dip stick/tabl et rgnt auto w/o microscopy Kaya Coleman PARCEL CONTRACTOR.CNM Work Phone: Start: 12-16-2024 Antibody screen MAICO SOSA Comment on above: Order Comment: Speci men Type: BLOOD SPECIMENOrdering Facility: [facility] Address: [address] [place] [address] Performed By: #### T SPN ####CC MAIN BLOOD BANKCLIA [id number] [place] [address] [place] Start: 12-16-2024 Us preg uterus after 1st trimest / gestation Kaya Coleman PARCEL CONTRACTOR.CNM Work Phone: Start: 12-14-2024 Urnls dip stick/tabl et rgnt auto w/o microscopy Chata Gamboa PARCEL CONTRACTOR.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 Work Phone: Start: 11-26-2024 Us preg uterus after 1st trimest 05/06 gestation Kaya Coleman PARCEL CONTRACTOR.CNM Work Phone: Start: 11-25-2024 Urnls dip stick/tabl et rgnt auto w/o microscopy Maico Sosa PARCEL CONTRACTOR.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 Work Phone: Start: 11-11-2024 Us uterus l imited 1/> fetuses Kaya Coleman PARCEL CONTRACTOR.CNM Work Phone: Start: 11-02-2024 Urnls dip stick/tabl et rgnt auto w/o microscopy Chata Gamboa PARCEL CONTRACTOR.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 Work Phone: Start: 09-30-2024 SARS-CoV-2, Influenz a & RSV (PCR) No Primary Care Physician Start: 09-30-2024 X-ray of chest, PA a nd lateral views No Primary Care Physician Start: 09-30-2024 Urnls dip stick/tabl et reagent auto microscopy No Primary Care Physician Start: 07-22-2024 UA DIP,URINE HCG (POC) Kaya Coleman PARCEL CONTRACTOR.CNM Work Phone: Start: 04-30-2024 Urnls dip stick/tabl et rgnt auto w/o microscopy Kaya Coleman PARCEL CONTRACTOR.CNM Work Phone: Start: 03-19-2024 Urnls dip stick/tabl et rgnt non-auto w/o micrscp Kaya Coleman PARCEL CONTRACTOR.CNM Work Phone: Start: 03-19-2024 Us preg uterus after 1st trimest 05/06 gestation Kaya Coleman PARCEL CONTRACTOR.CNM Work Phone: Start: 03-12-2024 Urnls dip stick/tabl et rgnt auto w/o microscopy Kaya Coleman PARCEL CONTRACTOR.CNM Work Phone: Start: 03-11-2024 Urnls dip stick/tabl et rgnt non-auto w/o micrscp Palmira Palmer MD Work Phone: Start: 03-09-2024 Urnls dip stick/tabl et rgnt auto w/o microscopy Jan Cantu MD Work Phone: Start: 03-03-2024 Urnls dip stick/tabl et rgnt non-auto w/o micrscp James Hargrove MD Work Phone: Start: 02-19-2024 Us preg uterus after 1st trimest 05/06 gestation Kaya Coleman PARCEL CONTRACTOR.CNM Work Phone: Start: 12-26-2023 Urnls dip stick/tabl et rgnt auto w/o microscopy Kaya Coleman PARCEL CONTRACTOR.CNM Work Phone: Start: 12-05-2023 Us preg uterus after 1st trimest 05/06 gestation Maximo Goetz PARCEL CONTRACTOR.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 Work Phone: Start: 08-15-2023 Urine culture No Primar y Care Physician Start: 08-13-2023 Transvaginal obstetr ic ultrasonography No Primary Care Physician Start: 07-29-2023 Transvaginal obstetr ic ultrasonography No Primary Care Physician Start: 05-22-2023 Dilation and curetta ge of uterus No Primary Care Physician Start: 04-24-2023 Transvaginal obstetr ic ultrasonography No Primary Care Physician Start: 04-16-2023 Urine culture No Primar y Care Physician Start: 04-03-2023 Urine culture No Primar y Care Physician Start: 01-30-2023 Diagnostic radiograp hy of abdomen No Primary Care Physician Start: 12-08-2022 Computed tomography of abdomen and pelvis with contrast No Primary Care Physician Start: 09-04-2022 Transvaginal echography No Primary Care Physician Start: 08-01-[address] Rosette Soriano Work Phone: Start: 08-01-[address] Deysi Soriano Work Phone: Start: 07-07-[address] Manohar Soriano Work Phone: Start: 04-11-2021 CT angiography of ch est with contrast Dr. Deysi Soriano Work Phone: Start: 04-11-2021 Plain chest X-ray Dr. Rosette Soriano Work Phone: H/O: surgery Status post dila tion and curettage No Primary Care Physician Comment on above: suction dilation and curettage for missed ab Plan of Treatment Date Care Activity Detail Author Start: 01-21-2034 Urine microalbumin profile DTaP,Tdap,Td Vaccine (12 - Td or Tdap) [facility] Start: 08-04-2030 Urine microalbumin profile DTaP,Tdap,Td Vaccine (11 - Td or Tdap) [facility] Start: 06-04-2027 Screening for malignant neoplasm of cervix Cervical Cancer Screening [facility] Start: 06-07-2025 End: 06-07-2025 Patient encounter procedure 06/07/2025 4:00 PM EST Office Visit OB/Gynecology [address] [place], [place] [id number] Kaya Coleman APRN.[facility] [address] [place] [id number] Annual OB/Gynecology Comment on above: Annual Start: 05-04-2025 RSV Vaccine (1 - Risk 1-dose series) RSV Vaccine (1 - Risk 1-dose series) [facility] Start: 02-10-2025 End: 02-10-2025 Patient encounter procedure Maternal Fet al Medicine Comment on above: Anatomy Anatomy/OB Anatomy/OB - urine T OC Start: 01-13-2025 End: 01-13-2025 Patient encounter procedure 01/13/2025 10:00 AM EDT Routine Office Visit OB/Gynecology [address] [place] [address] Kaya Coleman APRN.CNM [address] [place] [address] OB OB/Gynecology Comment on above: OB Start: 01-07-2025 End: 01-07-2025 Patient encounter procedure 01/07/2025 11:15 AM EDT Routine Office Visit OB/Gynecology [address] [address] Kaya Coleman APRN.CN [address] [place] [address] OB OB/Gynecology Comment on above: OB Start: 01-04-2025 [facility] Start: 12-24-2024 End: 12-24-2024 Patient encounter procedure 12/24/2024 2:40 PM EDT Routine Office Visit OB/Gynecology [address] [place] [address] Jan Cantu MD [address] [place] [address] OB OB/Gynecology Comment on above: OB Start: 12-16-2024 End: 03-16-2025 Chromosome 21 trisomy [Presence] in Blood or Tissue by Cytogenetics [facility] Work Phone: Comment on above: Expected: 12/16/2024, Expires: Start: 12-16-2024 End: 12-16-2024 Patient encounter procedure [facility] Fet al Medicine Comment on above: Nuchal Nuchal/OB Start: 12-14-2024 End: 12-14-2024 ambulatory 12/14/2024 9:30 AM EDT [facility] Psychiatry [address] [place] [phone] Dafne Bradley, PARCEL CONTRACTOR.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 [address] [place] [phone] Psychiatry Start: 11-30-2024 End: 11-30-2024 Patient encounter procedure 11/30/2024 3:15 PM EDT Routine Office Visit OB/Gynecology [address] [place] [address] Kaya Coleman APRN.CNM [address] [place] [address] OB OB/Gynecology Comment on above: OB Start: 11-26-2024 End: 11-26-2024 Patient encounter procedure 11/26/2024 1:10 PM EDT Routine Office Visit OB/Gynecology [address] [place] [address] Jan Cantu MD [address] [place] [address] Dating /OB OB/Gynecology Comment on above: Dating /OB Start: 11-26-2024 End: 11-26-2024 Patient encounter procedure OB/Gynecolog y Comment on above: Dating Start: 11-11-2024 End: 02-10-2025 ANEMIA REFLEX PANEL ANEMIA REFLEX PANEL Lab Routine with uncertain dates, antepartum (HCC) Expected: 11/11/2024, Expires: 02/10/2025 [facility] Work Phone: Comment on above: Expected: 11/11/2024, Expires: Start: 11-11-2024 End: 02-10-2025 Hemoglobin A1c in Blood HEMOGLOBIN A1C Lab Routine with uncertain dates, antepartum (HCC) Expected: 11/11/2024, Expires: 02/10/2025 [facility] Comment on above: Expected: 11/11/2024, Expires: Start: 11-11-2024 End: 02-10-2025 Hepatitis B virus surface Ag [Presence] in Serum HEPATITIS B SURFACE ANTIGEN Lab Routine with uncertain dates, antepartum (HCC) Expected: 11/11/2024, Expires: 02/10/2025 [facility] Comment on above: Expected: 11/11/2024, Expires: Start: 11-11-2024 End: 02-10-2025 Hepatitis C virus Ab [Presence] in Serum HEPATITIS C ANTIBODY IA WITH CONFIRMATION Lab Routine with uncertain dates, antepartum (HCC) Expected: 11/11/2024, Expires: 02/10/2025 [facility] Comment on above: Expected: 11/11/2024, Expires: Start: 11-11-2024 End: 02-10-2025 HIV 1+2 Ab [Presence] in Serum or Plasma by Immunoassay HIV 1/2 COMBO WITH REFLEX TO DIFFERENTIATION Lab Routine with uncertain dates, antepartum (HCC) Expected: 11/11/2024, Expires: 02/10/2025 [facility] Comment on above: Expected: 11/11/2024, Expires: Start: 11-11-2024 End: 11-11-2025 OBSTETRIC ULTRASOUND [facility] Comment on above: Expected: 11/11/2024, Expires: Start: 11-11-2024 End: 02-10-2025 RUBELLA IGG ANTIBODY RUBELLA IGG ANTIBODY Lab Routine with uncertain dates, antepartum (HCC) Expected: 11/11/2024, Expires: 02/10/2025 [facility] Comment on above: Expected: 11/11/2024, Expires: Start: 11-11-2024 End: 02-10-2025 SYPHILIS TREPONEMAL W/REFLEX SYPHILIS TREPONEMAL W/REFLEX Lab Routine with uncertain dates, antepartum (HCC) Expected: 11/11/2024, Expires: 02/10/2025 [facility] Comment on above: Expected: 11/11/2024, Expires: Start: 11-11-2024 End: 02-10-2025 TYPE + SCREEN TYPE + SCREEN Blood Bank Routine with uncertain dates, antepartum (HCC) Expected: 11/11/2024, Expires: 02/10/2025 [facility] Comment on above: Expected: 11/11/2024, Expires: Start: 11-11-2024 End: 11-11-2024 Patient encounter procedure 11/11/2024 8:45 AM EDT Initial Office Visit OB/Gynecology [address] [place] [address] Kaya Coleman APRN.CNM [address] [place] [address] NOB LMP 09/13 OB/Gynecology Comment on above: NOB LMP 09/13 Start: 10-22-2024 End: 10-22-2024 Manual pelvic examination 10/22/2024 3:30 PM EDT Procedure OB/Gynecology [address] [place] [address] Remote, Lawn Service Supervisor [facility] [address] [place] [address] Pelvic pain in female [R10.2]; Endometriosis [N80.9] OB/Gynecology Comment on above: Pelvic pain in female [R10.2]; Endometri osis [N80.9] Start: 10-15-2024 End: 01-14-2025 Comprehensive metabolic 2000 panel - Serum or Plasma COMPREHENSIVE METABOLIC PANEL Lab Routine Low serum potassium level Expected: 10/15/2024, Expires: 01/14/2025 [facility] Work Phone: Comment on above: Expected: 10/15/2024, Expires: Start: 10-15-2024 End: 01-14-2025 Folate [Mass/volume] in Serum or Plasma FOLATE, SERUM Lab Routine Encounter for long-term (current) use of medications Expected: 10/15/2024, Expires: 01/14/2025 [facility] Comment on above: Expected: 10/15/2024, Expires: Start: 10-15-2024 End: 10-15-2024 ambulatory 10/15/2024 9:00 AM EDT [facility] Psychiatry [address] [place] [phone] Dafne Bradley APRN.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 [address] [place] [phone] med check Psychiatry Comment on above: med check Start: 10-14-2024 End: 10-14-2025 US Pelvis PELVIC US [facility] Anc Imaging Routine Pelvic pain in female Endometriosis Expected: 10/14/2024, Expires: 10/14/2025 [facility] Work Phone: Comment on above: Expected: 10/14/2024, Expires: Start: 09-30-2024 Bacteria identified in Urine by Culture Urine Culture [facility] Start: 09-30-2024 [facility] Start: 09-30-2024 [facility] Start: 07-09-2024 End: 07-09-2024 Follow-up encounter 07/09/2024 11:00 AM EST [facility] [address] [place] [phone] Dafne Bradley APRN.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 [address] [place] [phone] 2 month follow up Psychiatry Comment on above: 2 month follow up Start: 06-25-2024 End: 06-25-2024 Patient encounter procedure 06/25/2024 2:45 PM EST Office Visit OB/Gynecology [address] [place] [address] Kaya Coleman APRN.CN [address] [place] [place] [address] Encounter for initial prescription of intrauterine contraceptive device (IUD) [Z30.014] OB/Gynecology Comment on above: Encounter for initial prescription of in trauterine contraceptive device (IUD) [Z30.014] Start: 05-21-2024 End: 05-21-2024 Patient encounter procedure 05/21/2024 2:45 PM EST Office Visit OB/Gynecology [address] [place] [address] Kaya Coleman APRN.CN [address] [place] [address] PP OB/Gynecology Comment on above: PP Start: 05-08-2024 End: 05-08-2024 Patient encounter procedure 05/08/2024 3:30 PM EST Office Visit OB/Gynecology [address] [place] [address] Kaya Coleman APRN.CN [address] [place] [address] PP OB/Gynecology Comment on above: PP Start: 05-07-2024 End: 08-06-2024 CBC W Auto Differential panel - Blood COMPLETE BLOOD COUNT AND DIFFERENTIAL Lab Routine Decreased appetite Malaise and fatigue Abnormal weight loss Expected: 05/07/2024, Expires: 08/06/2024 [facility] Comment on above: Expected: 05/07/2024, Expires: Start: 05-07-2024 End: 08-06-2024 Comprehensive metabolic 2000 panel - Serum or Plasma COMPREHENSIVE METABOLIC PANEL Lab Routine Decreased appetite Malaise and fatigue Abnormal weight loss Expected: 05/07/2024, Expires: 08/06/2024 [facility] Comment on above: Expected: 05/07/2024, Expires: Start: 05-07-2024 End: 08-06-2024 Thyrotropin [Units/volume] in Serum or Plasma THYROID STIMULATING HORMONE Lab Routine Decreased appetite Malaise and fatigue Abnormal weight loss Expected: 05/07/2024, Expires: 08/06/2024 [facility] Work Phone: Comment on above: Expected: 05/07/2024, Expires: Start: 05-07-2024 End: 05-07-2024 Patient encounter procedure 05/07/2024 10:00 AM EST [facility] Psych[facility] [address] [place] [phone] Dafne Braldey, MAICOL.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 [address] [place] [phone] [facility] Psych[facility] Comment on above: [facility] Start: 04-15-2024 End: 04-15-2024 Patient encounter procedure 04/15/2024 11:00 AM EST Office Visit OB/Gynecology [address] [place] [address] Kaya Coleman APRN.CN [address] [place] [address] PP OB/Gynecology Comment on above: PP Start: 03-25-2024 End: 03-25-2024 Patient encounter procedure 03/25/2024 10:15 AM EST Routine Office Visit OB/Gynecology [address] [place] [address] Kaya Coleman APRN.CN [address] [place] [address] OB OB/Gynecology Comment on above: OB Start: 03-19-2024 End: 03-19-2024 Patient encounter procedure OB/Gynecolog y Comment on above: OB growth OB/growth OB/growth - needs ur ine JOSHUA Start: 03-11-2024 End: 03-11-2024 Patient encounter procedure 03/11/2024 10:30 AM EST Routine Office Visit OB/Gynecology [address] [place] [address] Kaya Coleman APRN.CN [address] [place] [address] OB OB/Gynecology Comment on above: OB Start: 03-04-2024 End: 03-04-2024 Patient encounter procedure 03/04/2024 10:30 AM EDT Routine Office Visit OB/Gynecology [address] [place] [address] Kaya Coleman APRN.CNM [address] [place] [address] OB OB/Gynecology Comment on above: OB Start: 02-27-2024 End: 02-27-2024 Patient encounter procedure 02/27/2024 2:30 PM EDT Routine Office Visit OB/Gynecology [address] [place] [address] Kaya Coleman APRN.CNNancy [address] [place] [address] OB OB/Gynecology Comment on above: OB Start: 02-19-2024 End: 02-19-2024 Patient encounter procedure Maternal Fet al Medicine Comment on above: Growth US OB Routine Start: 02-05-2024 End: 02-05-2024 Patient encounter procedure 02/05/2024 10:30 AM EDT Routine Office Visit OB/Gynecology [address] [place] [address] Kaya Coleman APRN.CNM [address] [place] [address] 32 weeks OB/Gynecology Comment on above: 32 weeks Start: 01-31-2024 RSV Vaccine (1 - Risk 1-dose series) RSV Vaccine (1 - Risk 1-dose series) [facility] Start: 01-22-2024 End: 01-22-2024 Patient encounter procedure 01/22/2024 9:45 AM EDT Routine Office Visit OB/Gynecology [address] [place] [address] Kaya Coleman APRN.CNNancy [address] [place] [address] 30 weeks OB/Gynecology Comment on above: 30 weeks Start: 01-05-2024 End: 04-05-2024 CBC W Auto Differential panel - Blood COMPLETE BLOOD COUNT AND DIFFERENTIAL Lab Routine 23 weeks gestation of Encounter for supervision of high risk in second trimester, antepartum Expected: 01/05/2024 (Approximate), Expires: 04/05/2024 [facility] Comment on above: Expected: 01/05/2024 (Approximate), Expi res: 04/05/2024 Start: 01-05-2024 Covid-19 Vaccine () Covid-19 Vaccine () [facility] Start: 01-05-2024 Covid-19 Vaccine () Covid-19 Vaccine () [facility] Start: 01-05-2024 End: 04-05-2024 GESTATIONAL GLUCOSE SCREEN, 1-HOUR, 50 GRAM, NON-FASTING GESTATIONAL GLUCOSE SCREEN, 1-HOUR, 50 GRAM, NON-FASTING Lab Routine 23 weeks gestation of Encounter for supervision of high risk in second trimester, antepartum Expected: 01/05/2024 (Approximate), Expires: 04/05/2024 [facility] Work Phone: Comment on above: Expected: 01/05/2024 (Approximate), Expi res: 04/05/2024 Start: 01-05-2024 Influenza vaccination [facility] Start: 01-05-2024 End: 04-05-2024 SYPHILIS TOTAL W/REFLEX SYPHILIS TOTAL W/REFLEX Lab Routine 23 weeks gestation of Encounter for supervision of high risk in second trimester, antepartum Expected: 01/05/2024 (Approximate), Expires: 04/05/2024 [facility] Comment on above: Expected: 01/05/2024 (Approximate), Expi res: 04/05/2024 Start: 01-03-2024 End: 04-03-2024 TYPE + SCREEN [facility] Work Phone: Comment on above: Expected: 01/03/2024, Expires: 4 Start: 01-03-2024 End: 01-03-2024 Patient encounter procedure OB/Gynecolog y Comment on above: OB Start: 12-19-2023 End: 12-19-2023 Patient encounter procedure 12/19/2023 2:20 PM EDT Routine Office Visit OB/Gynecology [address] [place] [address] James Hargrove MD [address] [place] [address] OB OB/Gynecology Comment on above: OB Start: 12-09-2023 End: 12-09-2023 Patient encounter procedure 12/09/2023 2:00 PM EDT Office Visit Urology [address] [id number] Ramsey Aparicio APRN.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, DNP [address] [place] [address] Recurrent UTI [N39.0] Urology Comment on above: Recurrent UTI [N39.0] Start: 12-06-2023 End: 03-06-2024 HEMOGLOBIN EVALUATION CASCADE HEMOGLOBIN EVALUATION CASCADE Lab Routine 24 weeks gestation of Expected: 12/06/2023, Expires: 03/06/2024 [facility] Work Phone: Comment on above: Expected: 12/06/2023, Expires: 4 Start: 12-05-2023 End: 12-05-2023 Patient encounter procedure OB/Gynecolog y Comment on above: Growth OB Start: 11-21-2023 End: 11-20-2024 OBSTETRIC ULTRASOUND [facility] OBSTETRIC ULTRASOUND [facility] Anc Imaging Routine Encounter for supervision of high risk in second trimester, antepartum 21 weeks gestation of Circumvallate placenta, second trimester Expected: 11/21/2023, Expires: 11/20/2024 [facility] Work Phone: Comment on above: Expected: 11/21/2023, Expires: 5 Start: 11-21-2023 End: 11-21-2023 Patient encounter procedure 11/21/2023 11:00 AM EDT Initial Office Visit OB/Gynecology [address] [place] [address] Maximo Goetz APRN.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 [address] [place] [address] transfer of care from [place] phone note OB/Gynecology Comment on above: transfer of care from [place] ph one note Start: 08-15-20[address] Chlam[address] [facility] Start: 08-15-2023 Liquid based cervical cytology screening [facility] Start: 08-15-2023 [facility] Start: 08-15-2023 Urine culture Urine Culture [facility] Start: 07-29-2023 [facility] Start: 07-29-2023 Transvaginal obstetric ultrasonography Transvaginal w/Preg US [facility] Start: 07-29-[address] [facility] Start: 05-22-2023 Anesthesia incomplete/missed ANES INCOMPL/MISSED AB PX [facility] Start: 05-22-2023 Tx missed first trimester surgical CARE OF MISCARRIAGE [facility] Start: 05-22-[address] [facility] Start: 05-22-[address] [facility] Start: 05-22-2023 Medical regimen orders management [facility] Start: 05-22-[address] [facility] Start: 05-22-[address] [facility] Start: 05-22-2023 Taking patient vital signs [facility] Start: 05-22-2023 Vital signs measurements [facility] Start: 05-22-2023 [facility] Start: 01-10-2023 Anes lithotrp xtrcorp shock wave w/o water bath ANESTH KIDNEY STONE DESTRUCT [facility] Start: 01-10-2023 Lithotripsy xtrcorp shock wave FRAGMENTING OF KIDNEY STONE [facility] Start: 01-10-[address] [facility] Start: 01-04-2023 Covid-19 Vaccine ( season) Covid-19 Vaccine ( season) [facility] Start: 12-08-[address] [facility] Start: 12-08-2022 Bacteria identified in Blood by Culture Blood Culture [facility] Start: 12-08-2022 Chlamydia trachomatis (PCR) Chlamydia trachomatis (PCR) [facility] Start: 12-08-2022 Neisseria gonorrhoeae (PCR) Neisseria gonorrhoeae (PCR) [facility] Start: 12-08-2022 [facility] Start: 2020 Screening for malignant neoplasm of cervix Cervical Cancer Screening [facility] Start: 2017 Hepatitis C screening Hepatitis C Screening [facility] Start: 2017 HIV screening HIV Screening [facility] Start: 01-18-2016 HPV Vaccine (2 - 3-dose series) HPV Vaccine (2 - 3-dose series) [facility] Start: 2015 Meningococcal B Vaccine: Consider Based On Risk (1 of 2 - Patient Seeks Protection) Meningococcal B Vaccine: Consider Based On Risk (1 of 2 - Patient Seeks Protection) [facility] Start: 2013 Peds To Adult Transition Annual Assessment Peds To Adult Transition Annual Assessment [facility] Start: 2011 Peds To Adult Transition Initial Discussion Peds To Adult Transition Initial Discussion [facility] Anion gap measurement [facility] Bacteria identified in Urine by Culture URINE CULTURE Microbiology Routine History of recurrent UTI (urinary tract infection) 11/21/2023 11:41 AM EDT [facility] Bacteria identified in Urine by Culture URINE CULTURE Microbiology Routine Heartburn during in second trimester Acute nonintractable headache, unspecified headache type 26 weeks gestation of Ordered: 12/26/2023 [facility] Work Phone: Comment on above: Ordered: 12/26/2023 Bacteria identified in Urine by Culture URINE CULTURE Microbiology Routine Dysuria 03/09/2024 2:15 PM EST [facility] Bacteria identified in Urine by Culture URINE CULTURE Microbiology Routine Encounter for supervision of other normal in third trimester 37 weeks gestation of Pelvic pressure in 03/12/2024 3:25 PM [facility] Work Phone: Bacteria identified in Urine by Culture URINE CULTURE Microbiology Routine Dysuria 04/30/2024 3:54 PM EST [facility] Bacteria identified in Urine by Culture BACTERIAL CULTURE, URINE Microbiology Routine Urinary frequency 11/02/2024 4:27 PM EDT [facility] Work Phone: Bacteria identified in Urine by Culture BACTERIAL CULTURE, URINE Microbiology Routine Urinary frequency Ordered: 11/25/2024 [facility] Work Phone: Comment on above: Ordered: 11/25/2024 Bacteria identified in Urine by Culture BACTERIAL CULTURE, URINE Microbiology Routine Urinary frequency Ordered: 12/14/2024 [facility] Work Phone: Comment on above: Ordered: 12/14/2024 Bacteria identified in Urine by Culture BACTERIAL CULTURE, URINE Microbiology Routine 15 weeks gestation of ([facility]) 01/07/2025 12:16 PM EDT [facility] Work Phone: BACTERIAL VAGINOSIS NAAT BACTERI AL VAGINOSIS NAAT Lab Routine Vaginal odor 03/09/2024 2:15 PM EST [facility] Work Phone: Bilirubin measuremen t, urine [facility] BUN/Creatinine ratio [facility] Calcium [Mass/volume ] in Serum or Plasma [facility] NEMO/TRICHOMONAS NAAT NEMO /TRICHOMONAS NAAT Lab Routine Vaginal odor 03/09/2024 2:15 PM EST [facility] Carbon dioxide, tota l [Moles/volume] in Serum or Plasma [facility] CBC W Auto Different ial panel - Blood [facility] CBC W Auto Different ial panel - Blood [facility] Chlamydia trachomatis+Neisseria gonorrhoeae DNA [Presence] in Unspecified specimen by ASHLIE with probe detection GONORRHEA/CHLAMYDIA NAAT Lab Routine with uncertain dates, antepartum ([facility]) 11/11/2024 9:28 AM EDT [facility] Chloride [Moles/volu me] in Serum or Plasma [facility] Choriogonadotropin ( test) [Presence] in Serum or Plasma [facility] Choriogonadotropin ( test) [Presence] in Serum or Plasma [facility] Creatinine [Moles/vo lume] in Serum or Plasma [facility] Glucose [Mass/volume ] in Serum or Plasma [facility] Hemoglobin [Presence ] in Urine [facility] Hepatitis B surface antigen measurement [facility] Hepatitis B surface antigen measurement [facility] Hepatitis C antibody measurement [facility] Hepatitis C antibody measurement [facility] HIV 1+2 Ab+HIV1 p24 Ag [Presence] in Serum or Plasma by Immunoassay [facility] HIV 1+2 Ab+HIV1 p24 Ag [Presence] in Serum or Plasma by Immunoassay [facility] Insertion intrauteri ne device iud INSERT INTRAUTERINE DEVICE Procedures Routine Encounter for initial prescription of intrauterine contraceptive device (IUD) Ordered: 06/04/2024 [facility] Work Phone: Comment on above: Ordered: 06/04/2024 Measurement of keton es in urine using dipstick [facility] Measurement of renal function [facility] Microscopic urinalysis [facility] Neisseria gonorrhoea e DNA [Presence] in Genital specimen by ASHLIE with probe detection [facility] Neisseria gonorrhoea e rRNA [Presence] in Unspecified specimen by ASHLIE with probe detection [facility] End: 07-20-2024 OBSTETRIC ULTRASOUND [facility] OBSTETRIC ULTRASOUND [facility] Anc Imaging Routine Circumvallate placenta during in third trimester, antepartum Once per month for 5 Occurrences starting 01/22/2024 until 07/20/2024 [facility] Work Phone: Comment on above: Once per month for 5 Occurrences startin g 01/22/2024 until 07/20/2024 Organism count, micr oscopic method [facility] PAP TEST PAP TEST Lab Ramy bernstein Screening for malignant neoplasm of cervix 06/04/2024 1:31 PM EST [facility] Path report.final Dx Spec [facility] Patient Education [facility] Work Phone: Patient referral [facility] Work Phone: PCR test for Chlamyd ia trachomatis [facility] pH of Urine [facility] Potassium [Moles/vol ume] in Serum or Plasma [facility] Procedure [facility] ROUTINE, GR OUP B STREP PCR ROUTINE, GROUP B STREP PCR Microbiology Routine Encounter for supervision of other normal in third trimester Circumvallate placenta during in third trimester, antepartum Heartburn during in third trimester 35 weeks gestation of 02/27/2024 3:13 PM EDT [facility] Rubella IgG measurement [facility] Rubella IgG measurement [facility] Sodium [Moles/volume ] in Serum or Plasma [facility] Specific gravity of Urine [facility] Treponema sp Ab [Pre sence] in Serum [facility] Treponema sp Ab [Pre sence] in Serum [facility] TRICHOMONAS VAGINALIS NAAT TRICH OMONAS VAGINALIS NAAT Lab Routine with uncertain dates, antepartum (HCC) 11/11/2024 9:28 AM EDT [facility] UA DIP,URINE HCG (POC) UA DIP,UR INE HCG (POC) Lab Routine History of recurrent UTI (urinary tract infection) Dysuria Ordered: 04/30/2024 [facility] Work Phone: Comment on above: Ordered: 04/30/2024 UA DIP,URINE HCG (POC) UA DIP,UR INE HCG (POC) Lab Routine with uncertain dates, antepartum (HCC) Ordered: 11/11/2024 [facility] Comment on above: Ordered: 11/11/2024 Urea nitrogen [Mass/ volume] in Serum or Plasma [facility] Urinalysis, blood, qualitative [facility] Urine culture [facility] Urine dipstick for glucose [facility] Urine dipstick for leukocyte esterase [facility] Urine dipstick for nitrite [facility] Urine dipstick for protein [facility] Urine examination [facility] Urine microscopy: epithelial cells [facility] URINE OB DIP B/O URINE OB DIP B/ O Lab Routine Encounter for supervision of other normal in third trimester Circumvallate placenta during in third trimester, antepartum 34 weeks gestation of Ordered: 02/19/2024 [facility] Work Phone: Comment on above: Ordered: 02/19/2024 URINE OB DIP B/O URINE OB DIP B/ O Lab Routine Encounter for supervision of other normal in third trimester Circumvallate placenta during in third trimester, antepartum Heartburn during in third trimester 35 weeks gestation of Ordered: 02/27/2024 [facility] Work Phone: Comment on above: Ordered: 02/27/2024 Urobilinogen [Presen ce] in Urine [facility] White blood cell count [facility] Immunizations Immunization Date Immunization Notes Care Provider Janet manzano 03-26-2024 influenza, seasonal, injectable, preservative free Palmira Palmer MD Work Phone: [facility] 03-26-2024 influenza virus vacc ine, unspecified formulation Kaya Coleman PARCEL CONTRACTOR.CNM Work Phone: [facility] 01-22-2024 tetanus toxoid, redu elroy diphtheria toxoid, and acellular pertussis vaccine, adsorbed Kaya Virginia PARCEL CONTRACTOR.CNM Work Phone: [facility] 08-04-2020 diphtheria, tetanus toxoids and acellular pertussis vaccine, unspecified formulation Dr. Deysi Soraino Work Phone: [facility] Work Phone: 08-04-2020 tetanus toxoid, redu elroy diphtheria toxoid, and acellular pertussis vaccine, adsorbed Dr. Deysi Soriano Work Phone: [facility] 01-08-2018 diphtheria, tetanus toxoids and acellular pertussis vaccine, unspecified formulation Dr. Deysi Soriano Work Phone: [facility] Work Phone: 01-08-2018 tetanus toxoid, redu elroy diphtheria toxoid, and acellular pertussis vaccine, adsorbed Dr. Deysi Soriano Work Phone: [facility] 12-21-2015 hepatitis A vaccine, pediatric/adolescent dosage, 2 dose schedule Palmira Palmer MD Work Phone: [facility] 12-21-2015 Human Papillomavirus 9-valent vaccine Palmira Palmer MD Work Phone: [facility] 12-21-2015 meningococcal polysaccharide (groups A, C, Y and W-135) diphtheria toxoid conjugate vaccine (MCV4P) Palmira Palmer MD Work Phone: [facility] 12-21-2015 varicella virus vaccine Cheryl Palmer MD Work Phone: [facility] 03-11-2012 meningococcal polysaccharide (groups A, C, Y and W-135) diphtheria toxoid conjugate vaccine (MCV4P) Palmira Palmer MD Work Phone: [facility] 03-11-2012 tetanus toxoid, redu elroy diphtheria toxoid, and acellular pertussis vaccine, adsorbed Palmira Palmer MD Work Phone: [facility] 03-11-2012 varicella virus vaccine Cheryl Palmer MD Work Phone: [facility] 02-26-2005 diphtheria, tetanus toxoids and acellular pertussis vaccine, unspecified formulation Palmira Palmer MD Work Phone: [facility] 02-26-2005 hepatitis B vaccine, pediatric or pediatric/adolescent dosage Palmira Palmer MD Work Phone: [facility] 02-26-2005 measles, mumps and rubella virus vaccine Palmira Palmer MD Work Phone: [facility] 02-26-2005 poliovirus vaccine, inactivated Palmira Palmer MD Work Phone: [facility] 01-29-2004 diphtheria, tetanus toxoids and acellular pertussis vaccine, unspecified formulation Palmira Palmer MD Work Phone: [facility] 01-29-2004 measles, mumps and rubella virus vaccine Palmira Palmer MD Work Phone: [facility] 01-29-2004 poliovirus vaccine, inactivated Palmira Palmer MD Work Phone: [facility] 10-21-2000 diphtheria, tetanus toxoids and acellular pertussis vaccine, unspecified formulation Palmira Palmer MD Work Phone: [facility] 10-21-2000 pneumococcal conjuga te vaccine, 7 valent Palmira Palmer MD Work Phone: [facility] 1999 diphtheria, tetanus toxoids and acellular pertussis vaccine, unspecified formulation Palmira Palmer MD Work Phone: [facility] 1999 haemophilus influenz ae type b vaccine, PRP-T conjugate Palmira Palmer MD Work Phone: [facility] 1999 diphtheria, tetanus toxoids and acellular pertussis vaccine, unspecified formulation Palmira Palmer MD Work Phone: [facility] 1999 haemophilus influenz ae type b vaccine, PRP-T conjugate Palmira Palmer MD Work Phone: [facility] 1999 poliovirus vaccine, inactivated Palmira Palmer MD Work Phone: [facility] 1999 diphtheria, tetanus toxoids and acellular pertussis vaccine, unspecified formulation Palmira Palmer MD Work Phone: [facility] 1999 haemophilus influenz ae type b vaccine, PRP-T conjugate Palmira Palmer MD Work Phone: [facility] 1999 poliovirus vaccine, inactivated Palmira Palmer MD Work Phone: [facility] 1999 hepatitis B vaccine, pediatric or pediatric/adolescent dosage Palmira Palmer MD Work Phone: [facility] 1999 hepatitis B vaccine, pediatric or pediatric/adolescent dosage Palmira Palmer MD Work Phone: [facility] Payers Date Payer Category Payer Self-pay [id number] 2022 Medicaid [id number] 2022 Medicaid [id number] 2015 Private Health Insurance [id number] 1999 Unknown [id number] 1999 Unknown [id number] Unknown [id number] Unknown [id number] Unknown [id number] Unknown [id number] [id number] Unknown [id number] Unknown [id number] Social History Date Type Detail Facility [facility] Work Phone: Start: 07-07-2021 End: 04-16-[address] [facility] Unknown if ever smoked [facility] Start: 03-13-2020 None [facility] Start: 03-13-2020 With Family [facility] Start: 2000 Sex Assigned At Female W [facility] Tobacco smoking status No Smokin g Status Entered [facility] Start: 07-05-2023 [facility] Start: 12-07-2022 End: 09-30-2024 Tobacco smoking status NHIS Ex-smoker [facility] Start: 03-06-2018 End: 03-06-2023 History of tobacco use Current smoker [facility] Start: 03-06-2018 End: 03-06-2023 History of tobacco use Cigarette Smoker [facility] Start: 12-07-2022 End: 12-26-2023 Tobacco use and exposure Former smokeless tobacco user [facility] End: 03-06-2023 History of tobacco use Chews Tobacco [facility] Start: 12-07-2022 End: 12-14-2024 Alcohol intake Lifetime non-drinker (finding) [facility] Start: 11-05-2018 End: 12-08-2022 History of Social function [facility] Start: 11-05-2018 End: 12-08-2022 Alcohol Use Disorder Identification Test - Consumption [AUDIT-C] [facility] How often to you hav e a drink containing alcohol? Never [facility] Start: 04-06-2012 Average Number of Drinks Not on file [facility] Start: 2000 Sex Assigned At Not on file [facility] Start: 11-20-2023 Education 11 [facility] NEGATED: Highlighted row [facility] Goals Date Patient Goal Desired Activity /State Personal health goal Functional Status Date Assessment Result Facility 11-13-2023 Are you deaf, or do you have serious difficulty hearing No 11/13/2023 12:11 AM Juany Light RN No [facility] 11-13-2023 Are you blind, or do you have serious difficulty seeing, even when wearing glasses No 11/13/2023 12:11 AM Juany Light RN No [facility] 11-13-2023 Do you have serious difficulty walking or climbing stairs No 11/13/2023 12:11 AM Juany Light RN [facility] 11-13-2023 Do you have difficul ty dressing or bathing No 11/13/2023 12:11 AM Juany Light RN [facility] 11-13-2023 Because of a physica l, mental, or emotional condition, do you have difficulty doing errands alone such as visiting a physician's office or shopping No 11/13/2023 12:11 AM Juany Light RN No [facility] 05-20-2023 Functional Status ID band on, Call device within reach, Bed in low position [facility] Mental Status Date Assessment Result Facility 09-30-2024 Cognitive function Level Of Cons ciousness Awake;Alert;Appropriate;Fol lows Commands [facility] Work Phone: 11-13-2023 Because of a physica l, mental, or emotional condition, do you have serious difficulty concentrating, remembering, or making decisions No 11/13/2023 12:11 AM Juany Light RN No [facility] 05-22-2023 Cognitive function Voice/Name [facility] Work Phone: 05-20-2023 Mental Status Orientation Oriented x 4 [facility] 05-20-2023 [facility] 01-10-2023 Cognitive function Voice/Name [facility] Work Phone: 12-08-2022 Cognitive function Level Of Cons ciousness Awake;Alert;Appropriate;Fol lows Commands [facility] Work Phone: 04-11-2021 Cognitive function Level Of Cons ciousness Awake;Alert;Appropriate [facility] Work Phone: Clinical Notes 05-20-2023 to 01-13-2025 Dafne Bradley APRN.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 - 01/13/2025 10:09 AM EDTTelephone Encounter - Kasey Nunes LPN - 01/13/2025 8:24 AM EDTTelephone Encounter - Kasey Nunes LPN - 01/13/2025 8:24 AM EDT Note Date & Type Note Facility 01-13-2025 Note HNO ID: [id number] Author: DAFNE BRADLEY APRN.CNP Service: ? Author Type: Nurse Practitioner Type: Progress Notes Filed: 01/13/2025 10:18 Note Text: Patient appeared to have logged in for the virtual visit but did not join the visit. Unsure if she was experiencing technical difficulty. A direct link to join the visit was also sent to the patient. Will have someone reach out to reschedule the visit. [facility] 01-13-2025 History of Present illness Narrative Patient appeared to have logged in for the virtual visit but did not join the visit. Unsure if she was experiencing technical difficulty. A direct link to join the visit was also sent to the patient. Will have someone reach out to reschedule the visit. documented in this encounter [facility] 01-13-2025 Telephone encounter Note VV scheduled for today. Kasey Nunes LPN [facility] 01-13-2025 Miscellaneous Notes VV scheduled for today. Kasey Nunes LPN Refills can be authorized after follow up appointment is scheduled with the provider. Last: 10/15/24 TREATMENT PLAN: 1. 1. PTSD (post-traumatic stress disorder) Nightmares associated with chronic post-traumatic stress disorder Patient experiencing trauma-related nightmares, likely exacerbated by ongoing therapy sessions. - Advised patient to take Prozac 20 mg consistently in the morning to minimize vivid dreams. - Monitor frequency and intensity of nightmares; consider medication for PTSD-related nightmares if symptoms persist. 2. Panic disorder with agoraphobia - Continue Prozac 20 mg consistently. 3. Social anxiety disorder - Continue Prozac 20 mg consistently. 4. Medication side effect, initial encounter Vivid dreams and nightmares potentially linked to taking Prozac at bedtime and engagement in trauma focused therapy. - Advised taking Prozac in the morning to reduce side effects. 5. Psychosocial stressors Significant stressors include family conflicts, recent miscarriage, and health issues with family pets. Patient has cut off contact with certain family members due to unresolved trauma and recent events involving her children. - Continue weekly therapy sessions with Codie Fishman at [facility]. - Encouraged patient to explore and strengthen supportive relationships, particularly with her mother. 6. Abnormal weight loss Decreased appetite Patient reports significant weight loss, currently at 110 lbs, and decreased appetite, likely related to stress and psychosocial factors. - Recommended dietary supplementation with protein smoothies and breakfast essentials. - Ordered lab tests to check electrolytes and folate levels. 7. Low serum potassium level Previous low potassium levels noted. - OB provider had prescribed one time Potassium supplementation and recommended follow up with PCP. - Ordered lab tests to re-evaluate potassium levels. 8. Encounter for long-term (current) use of medications Currently on Prozac 20 mg, with inconsistent use reported. - Discussed potential adjustment of Prozac dosage during menstrual cycle to manage increased irritability and dysphoria in the future if needed after patient takes Prozac 20 mg consistently. 9. History of miscarriage Recent chemical in June, described as less traumatizing but still impactful. Follow up on 12/14/24 as scheduled 12/14/24 No show Next: [facility] msg sent to schedule documented in this encounter [facility] 01-07-2025 Telephone encounter Note Refills can be authorized after follow up appointment is scheduled with the provider. [facility] 01-07-2025 Telephone encounter Note Last: 10/15/24 TREATMENT PLAN: 1. 1. PTSD (post-traumatic stress disorder) Nightmares associated with chronic post-traumatic stress disorder Patient experiencing trauma-related nightmares, likely exacerbated by ongoing therapy sessions. - Advised patient to take Prozac 20 mg consistently in the morning to minimize vivid dreams. - Monitor frequency and intensity of nightmares; consider medication for PTSD-related nightmares if symptoms persist. 2. Panic disorder with agoraphobia - Continue Prozac 20 mg consistently. 3. Social anxiety disorder - Continue Prozac 20 mg consistently. 4. Medication side effect, initial encounter Vivid dreams and nightmares potentially linked to taking Prozac at bedtime and engagement in trauma focused therapy. - Advised taking Prozac in the morning to reduce side effects. 5. Psychosocial stressors Significant stressors include family conflicts, recent miscarriage, and health issues with family pets. Patient has cut off contact with certain family members due to unresolved trauma and recent events involving her children. - Continue weekly therapy sessions with Codie Fishman at [facility]. - Encouraged patient to explore and strengthen supportive relationships, particularly with her mother. 6. Abnormal weight loss Decreased appetite Patient reports significant weight loss, currently at 110 lbs, and decreased appetite, likely related to stress and psychosocial factors. - Recommended dietary supplementation with protein smoothies and breakfast essentials. - Ordered lab tests to check electrolytes and folate levels. 7. Low serum potassium level Previous low potassium levels noted. - OB provider had prescribed one time Potassium supplementation and recommended follow up with PCP. - Ordered lab tests to re-evaluate potassium levels. 8. Encounter for long-term (current) use of medications Currently on Prozac 20 mg, with inconsistent use reported. - Discussed potential adjustment of Prozac dosage during menstrual cycle to manage increased irritability and dysphoria in the future if needed after patient takes Prozac 20 mg consistently. 9. History of miscarriage Recent chemical in June, described as less traumatizing but still impactful. Follow up on 12/14/24 as scheduled 12/14/24 No show Next: [facility] msg sent to schedule T [facility] 01-07-2025 Progress note Formatting of t his note might be different from the original. S: Kimani Owens is a 24 year old female who presents at 15.2 weeks gestation for a routine visit. No movements to date. NIPT completed and was negative. Having another boy! Started counseling with new counselor. Feels mood is stable at this time. Occasional nausea. Denies headache, visual changes, chest pain, shortness of breath, vaginal bleeding, leakage of fluid, or dysuria. O: See flow sheet Gen: No apparent distress Abd: Gravid, nontender ASSESSMENT/PLAN: 1. Encounter for supervision of normal in multigravida in first trimester 2. 15 weeks gestation of 3. Nausea and vomiting during 4. PTSD (post-traumatic stress disorder) - JOSHUA urine culture today - Continue Prozac 20 mg PO Daily - Continue vitamin and ASA daily - RTO 4 weeks for anatomy US and CECILIA Coleman APRN.CNM T [facility] 01-07-2025 Miscellaneous Notes S: Kimani Owens is a 24 year old female who presents at 15.2 weeks gestation for a routine visit. No movements to date. NIPT completed and was negative. Having another boy! Started counseling with new counselor. Feels mood is stable at this time. Occasional nausea. Denies headache, visual changes, chest pain, shortness of breath, vaginal bleeding, leakage of fluid, or dysuria. O: See flow sheet Gen: No apparent distress Abd: Gravid, nontender ASSESSMENT/PLAN: 1. Encounter for supervision of normal in multigravida in first trimester 2. 15 weeks gestation of 3. Nausea and vomiting during 4. PTSD (post-traumatic stress disorder) - JOSHUA urine culture today - Continue Prozac 20 mg PO Daily - Continue vitamin and ASA daily - RTO 4 weeks for anatomy US and CECILIA Coleman APRN.CNM documented in this encounter [facility] 01-07-2025 Instructions Yelena Li MA - 01/07/2025 11:03 AM EDT SEQUENTIAL SCREENINGS The [facility] offers sequential screenings for women who are interested in screenings for chromosomal abnormalities and certain defects during a . The sequential screen combines ultrasound and blood tests to determine the risk of chromosomal abnormalities, including Down's Syndrome (Trisomy 21) and Trisomy 18, as well as open neural tube defects including spina bifida. Ultrasound examination is performed between 11 weeks and 13 weeks gestational age. Blood tests are drawn after the ultrasound and again later in the between 15 and 21 weeks gestational age. Please let your physician know if you are interested in this testing. It will require an appointment with our industrial technician. This is not an ultrasound performed by a physician in our office during a routine visit. SIGNS AND SYMPTOMS OF LABOR 1. Contractions every 10 minutes or more often 2. Clear, pink, or brownish fluid (water) leaking from vagina 3. Feeling that baby is pushing down, pressure 4. Low, dull backache 5. Cramps that feel like a period 6. Cramps with or without diarrhea If you notice any of the above symptoms, contact our office at [phone] and ask to speak with a nurse. After hours, you can call [employer] at [phone] OR call [facility] at [phone] and ask to have the doctor senior telecommunications engineer paged. If you consider this an emergency, dial 9-1-1 or go to your nearest emergency department. NEED HELP? Are you dealing with a violent or abusive relationship? Are you a victim of rape or sexual assult? Call [facility] 24 hour Crisis Hotline: 551.644.3197 or 798-836-3700. MANUAL Your Guide to a Healthy manual is now on-line. Visit [email or web address] [email or web address] to download your free copy documented in this encounter [facility] 12-21-2024 Telephone encounter Note Left voicemail to check mychart message. Yarelis New RN [facility] 12-21-2024 Miscellaneous Notes Left voicemail to check mychart message. Yarelis New RN Rx sent. Continue hydration and notify with fever, chills, worsening nausea/vomiting, or other worsening urinary symptoms Maximo Goetz APRN.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 12w6d Calling to see if she can get rx for Zofran. She has UTI and was prescribed Macrobid by [facility] urgent care provider. Stated that the medication is causing severe nausea. She doesn't always vomit with it, but has constant nausea after taking it. Pharmacy correct. Please advise. Yarelis New RN documented in this encounter [facility] 12-21-2024 Telephone encounter Note Rx sent. Continue hydration and notify with fever, chills, worsening nausea/vomiting, or other worsening urinary symptoms Maximo Goetz APRN.HAROLDO [facility] 12-21-2024 Telephone encounter Note 12w6d Calling to see if she can get rx for Zofran. She has UTI and was prescribed Macrobid by [facility] urgent care provider. Stated that the medication is causing severe nausea. She doesn't always vomit with it, but has constant nausea after taking it. Pharmacy correct. Please advise. Yarelis New RN [facility] 12-16-2024 Telephone encounter Note See other Mychart message. RR responded to patient. Palmira Del Angel RN [facility] 12-16-2024 Miscellaneous Notes See other Mychart message. RR responded to patient. Palmira Del Angel RN documented in this encounter [facility] 12-16-2024 Telephone encounter Note if wants VV today that is fine at end of my day. 420. Thanks. Muriel Estrada MD [facility] 12-16-2024 Miscellaneous Notes if wants VV today that is fine at end of my day. 420. Thanks. Muriel Estrada MD documented in this encounter [facility] 12-14-2024 Note HNO ID: [id number] Author: MACARENA MEHTA PA-C Service: ? Author Type: Physician Crimping Press Operator Type: Progress Notes Filed: 12/14/2024 15:45 Note Text: [facility] Brandy Owens is a 24 year old female. Patient presents with: Urinary Frequency: Frequency and burning x 2 days Patient is a 24-year-old female who complains of burning with urination and urinary frequency that she has been experiencing for the past 2 days. Patient denies fever, chills, hematuria, flank pain, nausea or other symptoms. Patient reports no abnormal vaginal bleeding or discharge. Patient does have a history of recurrent urinary tract infection and her last UTI in November 2024 was positive for E. coli which was susceptible to Macrobid. Patient states that her symptoms fully resolved after completing the antibiotic course and that her current symptoms were present a new episode. Patient is in her first trimester of at approximately 11 weeks gestation. Patient states that she does have an appointment scheduled to see her DELIVERY DRIVER/CUSTOMER SERVICE on 16 December 2024. Review of Systems Genitourinary: Positive for dysuria, frequency and urgency. All other systems reviewed and are negative. Objective BP 122/64 Pulse 90 Temp 37.3 ?C (99.2 ?F) (Tympanic) Resp 18 Wt 53.3 kg (117 lb 8.1 oz) LMP 09/13/2024 SpO2 98% BMI 20.17 kg/m? Physical Exam Vitals and nursing note reviewed. Constitutional: Appearance: Normal appearance. She is normal weight. HENT: Head: Normocephalic and atraumatic. Right Ear: External ear normal. Left Ear: External ear normal. Nose: Nose normal. Mouth/Throat: Mouth: Mucous membranes are moist. Pharynx: Oropharynx is clear. Eyes: Extraocular Movements: Extraocular movements intact. Conjunctiva/sclera: Conjunctivae normal. Pupils: Pupils are equal, round, and reactive to light. Cardiovascular: Rate and Rhythm: Normal rate. Pulses: Normal pulses. Heart sounds: Normal heart sounds. Pulmonary: Effort: Pulmonary effort is normal. Breath sounds: Normal breath sounds. Abdominal: General: Abdomen is flat. Palpations: Abdomen is soft. Musculoskeletal: Cervical back: Normal range of motion and neck supple. Skin: General: Skin is warm and dry. Capillary Refill: Capillary refill takes less than 2 seconds. Neurological: General: No focal deficit present. Mental Status: She is alert and oriented to person, place, and time. Psychiatric: Mood and Affect: Mood normal. Behavior: Behavior normal. Thought Content: Thought content normal. Judgment: Judgment normal. MDM Physical exam findings as noted above. Urinalysis shows no evidence of leukocyte esterase, nitrite, protein or blood. Given the patient's recent history, urine culture was ordered. Patient declines testing for bacterial vaginosis and [place] and states that she will follow-up with her DELIVERY DRIVER/CUSTOMER SERVICE at the appointment that is scheduled for 16 December 2024. CLINICAL IMPRESSION: Dysuria; Urinary Frequency ASSESSMENT/PLAN: 1. Urinary frequency - ICD9: 788.41, ICD10: R35.0 (primary diagnosis) - UA DIP, URINE (POC) - BACTERIAL CULTURE, URINE 2. Dysuria - ICD9: 788.1, ICD10: R30.0 MDM Amount and/or Complexity of Data Reviewed Clinical lab tests: ordered and reviewed Risk of Complications, Morbidity, and/or Mortality Presenting problems: low Diagnostic procedures: low Management options: nevin Mehta PA-C [facility] 12-14-2024 History of Present illness Narrative URGENT CARE [facility] Kimani Owens is a 24 year old female. Patient presents with: Urinary Frequency: Frequency and burning x 2 days Patient is a 24-year-old female who complains of burning with urination and urinary frequency that she has been experiencing for the past 2 days. Patient denies fever, chills, hematuria, flank pain, nausea or other symptoms. Patient reports no abnormal vaginal bleeding or discharge. Patient does have a history of recurrent urinary tract infection and her last UTI in November 2024 was positive for E. coli which was susceptible to Macrobid. Patient states that her symptoms fully resolved after completing the antibiotic course and that her current symptoms were present a new episode. Patient is in her first trimester of at approximately 11 weeks gestation. Patient states that she does have an appointment scheduled to see her DELIVERY DRIVER/CUSTOMER SERVICE on 16 December 2024. Review of Systems Genitourinary: Positive for dysuria, frequency and urgency. All other systems reviewed and are negative. Objective BP 122/64 Pulse 90 Temp 37.3 C (99.2 F) (Tympanic) Resp 18 Wt 53.3 kg (117 lb 8.1 oz) LMP 09/13/2024 SpO2 98% BMI 20.17 kg/m Physical Exam Vitals and nursing note reviewed. Constitutional: Appearance: Normal appearance. She is normal weight. HENT: Head: Normocephalic and atraumatic. Right Ear: External ear normal. Left Ear: External ear normal. Nose: Nose normal. Mouth/Throat: Mouth: Mucous membranes are moist. Pharynx: Oropharynx is clear. Eyes: Extraocular Movements: Extraocular movements intact. Conjunctiva/sclera: Conjunctivae normal. Pupils: Pupils are equal, round, and reactive to light. Cardiovascular: Rate and Rhythm: Normal rate. Pulses: Normal pulses. Heart sounds: Normal heart sounds. Pulmonary: Effort: Pulmonary effort is normal. Breath sounds: Normal breath sounds. Abdominal: General: Abdomen is flat. Palpations: Abdomen is soft. Musculoskeletal: Cervical back: Normal range of motion and neck supple. Skin: General: Skin is warm and dry. Capillary Refill: Capillary refill takes less than 2 seconds. Neurological: General: No focal deficit present. Mental Status: She is alert and oriented to person, place, and time. Psychiatric: Mood and Affect: Mood normal. Behavior: Behavior normal. Thought Content: Thought content normal. Judgment: Judgment normal. MDM Physical exam findings as noted above. Urinalysis shows no evidence of leukocyte esterase, nitrite, protein or blood. Given the patient's recent history, urine culture was ordered. Patient declines testing for bacterial vaginosis and Nemo and states that she will follow-up with her DELIVERY DRIVER/CUSTOMER SERVICE at the appointment that is scheduled for 16 December 2024. CLINICAL IMPRESSION: Dysuria; Urinary Frequency ASSESSMENT/PLAN: 1. Urinary frequency - ICD9: 788.41, ICD10: R35.0 (primary diagnosis) - UA DIP, URINE (POC) - BACTERIAL CULTURE, URINE 2. Dysuria - ICD9: 788.1, ICD10: R30.0 [facility] Amount and/or Complexity of Data Reviewed Clinical lab tests: ordered and reviewed Risk of Complications, Morbidity, and/or Mortality Presenting problems: low Diagnostic procedures: low Management options: nevin Mehta PA-C documented in this encounter [facility] 12-14-2024 Instructions Dafne Bradley, PARCEL CONTRACTOR.[facility] - 12/14/2024 9:46 AM EDT documented in this encounter [facility] 12-14-2024 Note HNO ID: [id number] Author: DAFNE BARDLEY APRN.CNP Service: ? Author Type: Nurse Practitioner Type: Progress Notes Filed: 12/14/2024 09:47 Note Text: Patient did not log in for her virtual visit with the provider today. [facility] 12-14-2024 History of Present illness Narrative Patient did not log in for her virtual visit with the provider today. documented in this encounter [facility] 11-28-2024 Telephone encounter Note Sent MyChart message, unable to call and VM box full. Andie Hatfield MA [facility] 11-28-2024 Miscellaneous Notes Sent [employer] message, unable to call and VM box full. Andie Hatfield MA Please call and let patient know that I changed her amoxicillin to an Augmentin. It is an amoxicillin based but stronger. And the best choice at this time due to early . If patient does not improve patient needs to follow-up with primary care Spoke with patient, states symptoms have mildly resolved but are still occurring and persisting. Andie Hatfield MA Please call patient make sure symptoms are improving. If symptoms are not improving please forward note back to provider to change antibiotic. Antibiotic that she is on is compatible with the urine culture. Due to would like patient to follow-up to make sure it UTI has completely cleared after treatment. documented in this encounter [facility] 11-28-2024 Telephone encounter Note Please call and let patient know that I changed her amoxicillin to an Augmentin. It is an amoxicillin based but stronger. And the best choice at this time due to early . If patient does not improve patient needs to follow-up with primary care [facility] 11-28-2024 Telephone encounter Note Spoke with patient, states symptoms have mildly resolved but are still occurring and persisting. Andie Hatfield MA [facility] 11-28-2024 Telephone encounter Note Please call patient make sure symptoms are improving. If symptoms are not improving please forward note back to provider to change antibiotic. Antibiotic that she is on is compatible with the urine culture. Due to would like patient to follow-up to make sure it UTI has completely cleared after treatment. [facility] 11-26-2024 Note HNO ID: [id number] Author: TONY VITAL MD Service: ? Author Type: Physician Type: Progress Notes Filed: 11/26/2024 13:56 Note Text: Kimani Owens is a 24 year old female who presented for tanning drum operator ultrasound today. Encounter Diagnosis ICD-10-CM 1. Missed menses N92.6 2. Encounter for supervision of normal in multigravida in first trimester ([facility]) Z34.81 3. with uncertain dates, antepartum ([facility]) Z34.90 4. 7 weeks gestation of ([facility]) Z3A.01 5. PTSD (post-traumatic stress disorder) F43.10 6. Depression with anxiety F41.8 7. History of miscarriage Z87.59 Please see report under imaging tab. 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 Encounter Diagnosis ICD-10-CM 1. Missed menses N92.6 2. Encounter for supervision of normal in multigravida in first trimester ([facility]) Z34.81 3. with uncertain dates, antepartum ([facility]) Z34.90 4. 7 weeks gestation of ([facility]) Z3A.01 5. PTSD (post-traumatic stress disorder) F43.10 6. Depression with anxiety F41.8 7. History of miscarriage Z87.59 Please see report under imaging tab. Tony Vital MD November 26, 2024 1:56 PM documented in this encounter [facility] 11-25-2024 Note HNO ID: [id number] Author: MAICO SOSA APRN.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 Service: ? Author Type: Nurse Practitioner Type: Progress Notes Filed: 11/25/2024 16:29 Note Text: URGENT CARE ITZ Subjective Kimani Owens is a 24 year old female. Patient presents with: Urinary Frequency: burning with urination, nausea x today HPI Nontoxic-appearing 9-week female presents urgent care chief complaint possible UTI. Duration of symptoms 1 day. Associated symptoms nausea dysuria frequency and urgency. History of UTIs this is similar. Does follow with urology. No vaginal discharge itching or burning. No loss of fluid. No vomiting. No flank pain or fevers. No abdominal pain. Past medical history prescription medications allergies reviewed Review of Systems Constitutional: Negative for chills, fatigue and fever. Gastrointestinal: Positive for nausea. Negative for abdominal distention, abdominal pain, rectal pain and vomiting. Genitourinary: Positive for dysuria and frequency. Negative for difficulty urinating, dyspareunia, flank pain, genital sores, hematuria, urgency, vaginal bleeding, vaginal discharge and vaginal pain. Objective BP 102/60 Pulse 88 Temp 37.1 ?C (98.7 ?F) Resp 16 Wt 50.2 kg (110 lb 10.7 oz) LMP 09/13/2024 SpO2 97% BMI 19.00 kg/m? Physical Exam Constitutional: Appearance: Normal appearance. HENT: Mouth/Throat: Mouth: Mucous membranes are moist. Cardiovascular: Rate and Rhythm: Normal rate. Pulmonary: Effort: Pulmonary effort is normal. Breath sounds: Normal breath sounds. Abdominal: Tenderness: There is abdominal tenderness in the suprapubic area. There is no right CVA tenderness, left CVA tenderness, guarding or rebound. Comments: Mild Neurological: Mental Status: She is alert. {ASSESSMENT/PLAN: 1. Urinary frequency - ICD9: 788.41, ICD10: R35.0 - UA DIP, URINE (POC) - BACTERIAL CULTURE, URINE Small protein and ketones noted on urine dip negative for leukocytes nitrites blood. With presenting symptoms previous positive urine culture treat for acute cystitis. Placed on amoxicillin has tolerated this in the past. Follow-up with DELIVERY DRIVER/CUSTOMER SERVICE as scheduled tomorrow. Patient was educated on supportive therapies. Patient will follow up with primary care provider as needed. Patient was instructed to immediately proceed to emergency room for any new, worsening, or symptoms lasting longer than anticipated. The patient's clinical presentation is otherwise unremarkable at this time. Based on exam and clinical finding, the patient is stable for discharge. Plan of care was discussed with patient. Patient verbalizes understanding and agrees to plan of care. This note was generated using [employer] software. It may contain errors in wording, punctuation, or spelling. Maico Sosa APRN.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 MDM Procedures [facility] 11-25-2024 History of Present illness Narrative URGENT CARE [facility] Kimani Owens is a 24 year old female. Patient presents with: Urinary Frequency: burning with urination, nausea x today HPI Nontoxic-appearing 9-week female presents urgent care chief complaint possible UTI. Duration of symptoms 1 day. Associated symptoms nausea dysuria frequency and urgency. History of UTIs this is similar. Does follow with urology. No vaginal discharge itching or burning. No loss of fluid. No vomiting. No flank pain or fevers. No abdominal pain. Past medical history prescription medications allergies reviewed Review of Systems Constitutional: Negative for chills, fatigue and fever. Gastrointestinal: Positive for nausea. Negative for abdominal distention, abdominal pain, rectal pain and vomiting. Genitourinary: Positive for dysuria and frequency. Negative for difficulty urinating, dyspareunia, flank pain, genital sores, hematuria, urgency, vaginal bleeding, vaginal discharge and vaginal pain. Objective BP 102/60 Pulse 88 Temp 37.1 C (98.7 F) Resp 16 Wt 50.2 kg (110 lb 10.7 oz) LMP 09/13/2024 SpO2 97% BMI 19.00 kg/m Physical Exam Constitutional: Appearance: Normal appearance. HENT: Mouth/Throat: Mouth: Mucous membranes are moist. Cardiovascular: Rate and Rhythm: Normal rate. Pulmonary: Effort: Pulmonary effort is normal. Breath sounds: Normal breath sounds. Abdominal: Tenderness: There is abdominal tenderness in the suprapubic area. There is no right CVA tenderness, left CVA tenderness, guarding or rebound. Comments: Mild Neurological: Mental Status: She is alert. {ASSESSMENT/PLAN: 1. Urinary frequency - ICD9: 788.41, ICD10: R35.0 - UA DIP, URINE (POC) - BACTERIAL CULTURE, URINE Small protein and ketones noted on urine dip negative for leukocytes nitrites blood. With presenting symptoms previous positive urine culture treat for acute cystitis. Placed on amoxicillin has tolerated this in the past. Follow-up with DELIVERY DRIVER/CUSTOMER SERVICE as scheduled tomorrow. Patient was educated on supportive therapies. Patient will follow up with primary care provider as needed. Patient was instructed to immediately proceed to emergency room for any new, worsening, or symptoms lasting longer than anticipated. The patient's clinical presentation is otherwise unremarkable at this time. Based on exam and clinical finding, the patient is stable for discharge. Plan of care was discussed with patient. Patient verbalizes understanding and agrees to plan of care. This note was generated using [employer] software. It may contain errors in wording, punctuation, or spelling. Maico Sosa APRN.HAROLDO MDM Procedures documented in this encounter [facility] 11-12-2024 Telephone encounter Note 1st risk assessment form submitted 11/12. Dawson Pratt RN [facility] 11-12-2024 Miscellaneous Notes 1st risk assessment form submitted 11/12. Dawson Pratt RN documented in this encounter [facility] 11-11-2024 Note Addended by: ANITA LEY on: 11/11/2024 09:28 AM Modules accepted: Orders [facility] 11-11-2024 Miscellaneous Notes Addended by: ANITA LEY on: 11/11/2024 09:28 AM Modules accepted: Orders Addended by: KAYA COLEMAN on: 11/11/2024 09:26 AM Modules accepted: Orders Addended by: ANITA LEY on: 11/11/2024 09:24 AM Modules accepted: Orders documented in this encounter [facility] 11-11-2024 Note Addended by: KAYA COLEMAN on: 11/11/2024 09:26 AM Modules accepted: Orders [facility] 11-11-2024 Note Addended by: ANITA LEY on: 11/11/2024 09:24 AM Modules accepted: Orders [facility] 11-11-2024 History of Present illness Narrative INITIAL OB ASSESSMENT HPI: Kimani is a 24 year old White here to establish Obstetrical Care. Patient's last menstrual period was 09/13/2024. from OB Dating Form. was planned Complaints: No OB History Gravida5 Para3 Term3 Preterm0 AB1 Living3 SAB1 IAB0 Ectopic0 Multiple0 Live Births3 Previous history: Prior : never History of 4th degree laceration: No History of shoulder dystocia: No History of Hypertensive disorders including pre-eclampsia or gestational hypertension: No History of gestational diabetes: No Patient's Risk Screening for delivery: Have you had a prior middleton between 20w and 36w6d? No How many pregnancies have you had before? 4 Did you have a previous baby with a GBS Infection? No Please select all that apply for any prior : N/A MEDICAL/PSYCHOSOCIAL HISTORY: History of hemorrhage or bleeding concerns: No Thyroid Disease: No History of chronic hypertension: No History of pre-existing diabetes: No No results found for: ABORHD BMI 19.22 kg/(m^2) Last Pap: 06/11/2024 History of abnormal pap: No Prior treatment for cervical dysplasia: none. Last HPV: N/A History of STDs: None Partner History of STDs: None Did you have a partner with Herpes? No Tobacco use: No E-Cigarette/Vaping Use: No Caffeine use: Small amount Drug use: No Alcohol use: No Multivitamin with Folic acid: Yes Would refuse blood transfusion if medically necessary: No Social Needs: How often does this describe you? I don't have enough money to pay my bills: Never Within the past 12 months, have you worried that your food would run out before you had money to buy more? Never In the past 12 months, has lack of reliable transportation kept you from going to medical appointments or work, or from getting things needed for daily living? Never In the past 12 months, have you had any concerns about having a place to live, or about the condition or quality of your housing? Never Would you like more information on any of the following (please check all that apply)? Tooling Inspector care Social History: Do you have any history of depression, anxiety, PTSD, or other mood problems? Yes, all of the above Do you have a history of abuse or trauma that may impact your experience? No Are you currently employed? No Depression/Anxiety Screening: denies symptoms of depression. OB Depression and Anxiety Screening- This Encounter Feeling down, depressed, or hopeless: Not at all Little interest or pleasure in doing things: Not at all Feeling nervous, anxious, or on edge Several days Not being able to stop or control worrying Not at all Anxiety Pre-Screening Total (If >/= 3 additional questions will be reviewed) 1 Genetic Screening: Partner present: No Patient verbalized knowledge of partner family health history: Yes Do you or your partner have any personal or family history of defects not previously discussed: No Do you have history of a complicated by anomaly, genetic condition, or demise: No Preeclampsia Risk Screening: Screening for prevention of preeclampsia: High risk factors: None Moderate risk ractors: None OB Risk Screening: Completed, no positive findings documented. 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 Worse with position changes. - Denies fever, chills, new or worsened nausea, emesis - Had does of rocephin at [place] ED, transferred to OB ED for further evaluation - History of kidney stones, recurrent UTIs - Received Lithotripsy in 2022 - No vaginal bleeding, leakage of fluid, decreased FM - Vitals WNL, doptones present and WNL - Ab PAST SURGICAL HISTORY Procedure Laterality Date D&C, DIAG AND/OR THERAPEUTIC LAPAROSCOPY DIAGNOSTIC 11/27/2018 Minimal endometriosis LITHOTRIPSY XTRCORP SHOCK WAVE 2022 Current Outpatient Medications Medication Sig Dispense Refill phenazopyridine (PYRIDIUM) 100 mg tablet Take 200 mg by mouth three times a day as needed. FLUoxetine (PROZAC) 20 mg capsule Take 1 capsule by mouth once daily. 90 capsule 0 acetaminophen (TYLENOL EXTRA STRENGTH) 500 mg tablet Take 1,000 mg by mouth every 8 hours as needed. aspirin, enteric coated (ECOTRIN LOW STRENGTH) 81 mg EC tablet Take 1 tablet by mouth once daily. 90 tablet 3 URO-MP 118-10-40.8-36 mg as needed. (Patient not taking: Reported on 11/02/2024) potassium chloride 20 mEq TbER Take 2 tablets by mouth two times a day. Take 2 tabs 1x (Patient not taking: Reported on 11/11/2024) 2 tablet 0 No current facility-administered medications for this visit. Allergies As of Date: 11/11/2024 Allergen Noted Reaction KEFLEX [CEPHALEXIN] 03/09/2024 Other: See Comments Fully Assessed 11/11/2024 Does patient have penicillin allergy: No REVIEW OF SYSTEMS: GENERAL: Negative for: Fever or Chills and Positive for: Fatigue HEENT: Negative for: Impaired Vision, Ringing in Ears, Nosebleeds Positive for headaches- hx of aura migraines- 1x week NECK: Negative for: Swelling, Pain, Stiffness RESPIRATORY: Negative for: Cough, Shortness of breath, Wheezing GASTROINTESTINAL: Negative for: Heartburn, Constipation, Diarrhea, Blood in stool, Vomiting and nausea MUSCULOSKELETAL: Negative for: Muscle or joint pain, stiffness, Joint swelling NEUROLOGIC/PSYCHIATRIC: Negative for: Weakness, Paralysis, Numbness, Tingling, Tremor, Anxiety, Depression, Memory loss SKIN: Negative for: Rash, Itching GENITOURINARY: Negative for: vaginal itching, vaginal discharge, hematuria or dysuria and Positive for: urinary frequency SENSITIVE EXAM: The sensitive examination was discussed with the Patient or Patient's Authorized Cap Jewel Plate Assembler. As applicable, any other physician, advance practice provider, medical student, or other health professional student that will be observing or involved in the sensitive examination for educational or training purposes was discussed with the Patient or Authorized Cap Jewel Plate Assembler. The Patient or Authorized Cap Jewel Plate Assembler has agreed to proceed with the sensitive examination. (Sensitive examination includes inspection and/or palpation of the breasts, pelvis, prostate and anorectal regions). PHYSICAL EXAM: BP 98/66 Ht 5' 4 (1.63m) Wt 112 lb (50.8kg) LMP 09/13/2024 BMI 19.22 kg/(m^2). GENERAL: pleasant in no apparent distress DERMATOLOGY: Normal and without lesions NECK: Supple and full range of motion CHEST: Normal inspiratory effort BREAST: deferred ABDOMEN: soft, non-tender, and no masses NEURO: alert and oriented x3,exam grossly non-focal PELVIS: External genitalia normal without lesions. Perineal body intact. No vaginal or cervical lesions. Clinical Pelvimetry: Pelvimetry clinically assessed as adequate Limited OB ultrasound exam: single intrauterine , positive cardiac activity, and crown-rump length 7.1 weeks SBIRT Kimani Owens was given the 4P's screening tool. Kimani answered as follows: OB Opioid Screening - Last Recorded (since 02/15/2024) None Based on the screen and further questions, she is considered at Low risk due to:No past or current use. Positive reinforcement of current behavior. Kaya Coleman APRN.CNM ASSESSMENT/PLAN: 1. Encounter for supervision of normal 2. Missed menses 3. with uncertain dates, antepartum 4. 7 weeks gestation of 5. PTSD (post-traumatic stress disorder) 6. Depression with anxiety 7. History of miscarriage PLAN: 1) Patient oriented to practice. Patient given new OB orientation folder. Discussed nutrition, folic acid supplementation, dietary guidelines, exercise, smoking, alcohol, caffeine, and drug use. Discussed gestational weight gain guidelines. Discussed routine OB labs including STD/HIV. Discussed how to access Your guide to a health and the Reagent Tender. Reviewed midwifery and wardrobe technician services that are available. 2) Screening: Hemoglobin A1C: ordered Baby Aspirin: The patient has been counseled about the potential benefits of low dose aspirin in and our recommendation that this be offered to all patients, regardless of whether they meet the high risk criteria specified above. She Accepts Aneuploidy Screening: Discussed aneuploidy screening, nuchal translucency/first trimester early anatomy ultrasound and NIPT. The risks/benefits and limitations of NIPT/aneuploidy screening were reviewed including the potential for false negative and false positive results. The availability of genetic counseling was reviewed. Information on aneuploidy screening was provided. The patient chooses to proceed with NIPT (10 weeks) Myriad Carrier Screening: Discussed myriad carrier screening. We discussed the availability of professional-society guided carrier screening and reviewed the conditions screened and limitations of screening. The availability of genetic counseling was reviewed. Information on carrier screening was provided. The patient Declines 3) Patient offered option of Virtual Visits. Patient prefers in person visits. Follow up in 2 weeks or sooner prn. Kaya Coleman APRN.CNM OB point of care ultrasound was performed. See imaging tab for details. Anita Ley MA documented in this encounter [facility] 11-11-2024 Note HNO ID: [id number] Author: KAYA COLEMAN APRN.CNM Service: ? Author Type: Tooling Inspector Type: Progress Notes Filed: 11/11/2024 09:22 Note Text: INITIAL OB ASSESSMENT HPI: Kimani is a 24 year old White here to establish Obstetrical Care. Patient's last menstrual period was 09/13/2024. from OB Dating Form. was planned Complaints: No OB History Gravida5 Para3 Term3 Preterm0 AB1 Living3 SAB1 IAB0 Ectopic0 Multiple0 Live Births3 Previous history: Prior : never History of 4th degree laceration: No History of shoulder dystocia: No History of Hypertensive disorders including pre-eclampsia or gestational hypertension: No History of gestational diabetes: No Patient's Risk Screening for delivery: Have you had a prior middleton between 20w and 36w6d? No How many pregnancies have you had before? 4 Did you have a previous baby with a GBS Infection? No Please select all that apply for any prior : N/A MEDICAL/PSYCHOSOCIAL HISTORY: History of hemorrhage or bleeding concerns: No Thyroid Disease: No History of chronic hypertension: No History of pre-existing diabetes: No No results found for: ABORHD BMI 19.22 kg/(m2) Last Pap: 06/11/2024 History of abnormal pap: No Prior treatment for cervical dysplasia: none. Last HPV: N/A History of STDs: None Partner History of STDs: None Did you have a partner with Herpes? No Tobacco use: No E-Cigarette/Vaping Use: No Caffeine use: Small amount Drug use: No Alcohol use: No Multivitamin with Folic acid: Yes Would refuse blood transfusion if medically necessary: No Social Needs: How often does this describe you? I don't have enough money to pay my bills: Never Within the past 12 months, have you worried that your food would run out before you had money to buy more? Never In the past 12 months, has lack of reliable transportation kept you from going to medical appointments or work, or from getting things needed for daily living? Never In the past 12 months, have you had any concerns about having a place to live, or about the condition or quality of your housing? Never Would you like more information on any of the following (please check all that apply)? Tooling Inspector care Social History: Do you have any history of depression, anxiety, PTSD, or other mood problems? Yes, all of the above Do you have a history of abuse or trauma that may impact your experience? No Are you currently employed? No Depression/Anxiety Screening: denies symptoms of depression. OB Depression and Anxiety Screening- This Encounter Feeling down, depressed, or hopeless: Not at all Little interest or pleasure in doing things: Not at all Feeling nervous, anxious, or on edge Several days Not being able to stop or control worrying Not at all Anxiety Pre-Screening Total (If >/= 3 additional questions will be reviewed) 1 Genetic Screening: Partner present: No Patient verbalized knowledge of partner family health history: Yes Do you or your partner have any personal or family history of defects not previously discussed: No Do you have history of a complicated by anomaly, genetic condition, or demise: No Preeclampsia Risk Screening: Screening for prevention of preeclampsia: High risk factors: None Moderate risk ractors: None OB Risk Screening: Completed, no positive findings documented. 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 Worse with position changes. - Denies fever, chills, new or worsened nausea, emesis - Had does of rocephin at [place] [facility], transferred to OB ED for further evaluation - History of kidney stones, recurrent UTIs - Received Lithotripsy in 2022 - No vaginal bleeding, leakage of fluid, decreased FM - Vitals WNL, doptones present and WNL - Ab PAST SURGICAL HISTORY Procedure Laterality Date DANDC, DIAG AND/OR THERAPEUTIC LAPAROSCOPY DIAGNOSTIC 11/27/2018 Minimal endometriosis LITHOTRIPSY XTRCORP SHOCK WAVE 2022 Current Outpatient Medications Medication Sig Dispense Refill phenazopyridine (PYRIDIUM) 100 mg tablet Take 200 mg by mouth three times a day as needed. FLUoxetine (PROZAC) 20 mg capsule Take 1 capsule by mouth once daily. 90 capsule 0 acetaminophen (TYLENOL EXTRA STRENGTH) 500 mg tablet Take 1,000 mg by mouth every 8 hours as needed. aspirin, enteric coated (ECOTRIN LOW STRENGTH) 81 mg EC tablet Take 1 tablet by mouth once daily. 90 tablet 3 URO-MP 118-10-40.8-36 mg as needed. (Patient not taking: Reported on 11/02/2024) potassium chloride 20 mEq TbER Take 2 (more content not included)... [facility] 11-11-2024 Instructions Anita Ley MA - 11/11/2024 8:06 AM EDT Please select the following link to access the [facility] Your Guide to a Healthy . [email or web address] documented in this encounter [facility] 11-02-2024 Note HNO ID: [id number] Author: MAICO SOSA APRN.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 Service: ? Author Type: Nurse Practitioner Type: Progress Notes Filed: 11/02/2024 16:12 Note Text: Subjective HPI Nontoxic-appearing 24-year-old 7-week female presents urgent care chief complaint possible UTI. Duration of symptoms 4 days. Associated symptoms malodorous urine and dysuria. History of UTIs or this feels similar. OTC medications none. No vaginal discharge itching. No abdominal pain nausea vomiting flank pain. Past medical history prescription medications allergies reviewed. .Patient presents with: Urinary Frequency: burning and strong odor of urine x 4 days PAST MEDICAL HISTORY Diagnosis Date Anemia Depression with anxiety Endometriosis 11/27/2018 Minimal Kidney stones depression Recurrent UTI Has seen Dr Henry Right flank pain 11/12/2023 - Right flank pain 5/10 since this afternoon. Worse with position changes. - Denies fever, chills, new or worsened nausea, emesis - Had does of rocephin at [place] [facility], transferred to OB ED for further evaluation - History of kidney stones, recurrent UTIs - Received Lithotripsy in 2022 - No vaginal bleeding, leakage of fluid, decreased FM - Vitals WNL, doptones present and WNL - Ab PAST SURGICAL HISTORY Procedure Laterality Date DANDC, DIAG AND/OR THERAPEUTIC LAPAROSCOPY DIAGNOSTIC 11/27/2018 Minimal endometriosis LITHOTRIPSY XTRCORP SHOCK WAVE 2022 ALLERGIES Keflex [Cephalexin] MEDICATIONS FLUoxetine (PROZAC) 20 mg capsule Take 1 capsule by mouth once daily. potassium chloride 20 mEq TbER Take 2 tablets by mouth two times a day. Take 2 tabs 1x acetaminophen (TYLENOL EXTRA STRENGTH) 500 mg tablet Take 1,000 mg by mouth every 8 hours as needed. URO-MP 118-10-40.8-36 mg as needed. (Patient not taking: Reported on 11/02/2024) FAMILY HISTORY Problem Relation Age of Onset other (lupus) Mother Hypertension Father Diabetes Father No Known Problems Brother No Known Problems Brother No Known Problems Brother No Known Problems Maternal Grandmother Heart Maternal Grandfather Hypertension Paternal Grandmother Dementia Paternal Grandmother Parkinson's Paternal Grandmother Heart Attack Paternal Grandfather other (febrile seizures) Son Social History Tobacco Use Smoking status: Former Current packs/day: 0.00 Types: Cigarettes Start date: 03/2018 Quit date: 03/2023 Years since quittin.6 Smokeless tobacco: Former Types: Chew Quit date: 03/2023 Vaping Use Vaping status: Former Quit date: 06/06/2022 Substances: Nicotine Substance Use Topics Alcohol use: Never Drug use: Never Review of Systems Constitutional: Negative for chills, fever and malaise/fatigue. Cardiovascular: Negative for chest pain. Gastrointestinal: Negative for abdominal pain, constipation, diarrhea, nausea and vomiting. Genitourinary: Positive for dysuria. Negative for flank pain, frequency, hematuria and urgency. Musculoskeletal: Negative for myalgias. Objective Physical Exam Vitals and nursing note reviewed. Constitutional: General: She is not in acute distress. Appearance: She is not diaphoretic. HENT: Head: Jaw: No trismus. Right Ear: Hearing normal. No decreased hearing noted. No drainage, swelling or tenderness. Tympanic membrane is not perforated, erythematous or bulging. Left Ear: Hearing normal. No decreased hearing noted. No drainage, swelling or tenderness. Tympanic membrane is not perforated, erythematous or bulging. Mouth/Throat: Pharynx: Uvula midline. No uvula swelling. Tonsils: No tonsillar abscesses. Cardiovascular: Rate and Rhythm: Normal rate and regular rhythm. Pulses: Normal pulses. Pulmonary: Effort: Pulmonary effort is normal. No respiratory distress. Breath sounds: Normal breath sounds. Chest: Chest wall: No tenderness. Abdominal: General: Bowel sounds are normal. There is no distension. Palpations: Abdomen is soft. Abdomen is not rigid. Tenderness: There is no abdominal tenderness. There is no right CVA tenderness, left CVA tenderness, guarding or rebound. Negative signs include Keane's sign and McBurney's sign. Musculoskeletal: General: No tenderness. Lymphadenopathy: Head: Right side of head: No submental, submandibular, tonsillar, preauricular, posterior auricular or occipital adenopathy. Left side of head: No submental, submandibular, tonsillar, preauricular, posterior auricular or occipital adenopathy. Cervical: Right cervical: No superficial or posterior cervical adenopathy. Left cervical: No superficial or posterior cervical adenopathy. Skin: General: Skin is warm and dry. Findings: No rash. Neurological: Mental Status: She is alert and oriented to person, place, and time. ASSESSMENT/PLAN: 1. Urinary frequency - ICD9: 788.41, ICD10: R35.0 - UA DIP, URINE (POC) - BACTERIAL CULTURE, URINE Urine dip positive for trace protein (more content not included)... [facility] 11-02-2024 History of Present illness Narrative Subjective HPI Nontoxic-appearing 24-year-old 7-week female presents urgent care chief complaint possible UTI. Duration of symptoms 4 days. Associated symptoms malodorous urine and dysuria. History of UTIs or this feels similar. OTC medications none. No vaginal discharge itching. No abdominal pain nausea vomiting flank pain. Past medical history prescription medications allergies reviewed. .Patient presents with: Urinary Frequency: burning and strong odor of urine x 4 days PAST MEDICAL HISTORY Diagnosis Date Anemia Depression with anxiety Endometriosis 11/27/2018 Minimal Kidney stones depression Recurrent UTI Has seen Dr Henry Right flank pain 11/12/2023 - Right flank pain 5/10 since this afternoon. Worse with position changes. - Denies fever, chills, new or worsened nausea, emesis - Had does of rocephin at [place] ED, transferred to OB ED for further evaluation - History of kidney stones, recurrent UTIs - Received Lithotripsy in 2022 - No vaginal bleeding, leakage of fluid, decreased FM - Vitals WNL, doptones present and WNL - Ab PAST SURGICAL HISTORY Procedure Laterality Date D&C, DIAG AND/OR THERAPEUTIC LAPAROSCOPY DIAGNOSTIC 11/27/2018 Minimal endometriosis LITHOTRIPSY XTRCORP SHOCK WAVE 2022 ALLERGIES Keflex [Cephalexin] MEDICATIONS FLUoxetine (PROZAC) 20 mg capsule Take 1 capsule by mouth once daily. potassium chloride 20 mEq TbER Take 2 tablets by mouth two times a day. Take 2 tabs 1x acetaminophen (TYLENOL EXTRA STRENGTH) 500 mg tablet Take 1,000 mg by mouth every 8 hours as needed. URO-MP 118-10-40.8-36 mg as needed. (Patient not taking: Reported on 11/02/2024) FAMILY HISTORY Problem Relation Age of Onset other (lupus) Mother Hypertension Father Diabetes Father No Known Problems Brother No Known Problems Brother No Known Problems Brother No Known Problems Maternal Grandmother Heart Maternal Grandfather Hypertension Paternal Grandmother Dementia Paternal Grandmother Parkinson's Paternal Grandmother Heart Attack Paternal Grandfather other (febrile seizures) Son Social History Tobacco Use Smoking status: Former Current packs/day: 0.00 Types: Cigarettes Start date: 03/2018 Quit date: 03/2023 Years since quittin.6 Smokeless tobacco: Former Types: Chew Quit date: 03/2023 Vaping Use Vaping status: Former Quit date: 06/06/2022 Substances: Nicotine Substance Use Topics Alcohol use: Never Drug use: Never Review of Systems Constitutional: Negative for chills, fever and malaise/fatigue. Cardiovascular: Negative for chest pain. Gastrointestinal: Negative for abdominal pain, constipation, diarrhea, nausea and vomiting. Genitourinary: Positive for dysuria. Negative for flank pain, frequency, hematuria and urgency. Musculoskeletal: Negative for myalgias. Objective Physical Exam Vitals and nursing note reviewed. Constitutional: General: She is not in acute distress. Appearance: She is not diaphoretic. HENT: Head: Jaw: No trismus. Right Ear: Hearing normal. No decreased hearing noted. No drainage, swelling or tenderness. Tympanic membrane is not perforated, erythematous or bulging. Left Ear: Hearing normal. No decreased hearing noted. No drainage, swelling or tenderness. Tympanic membrane is not perforated, erythematous or bulging. Mouth/Throat: Pharynx: Uvula midline. No uvula swelling. Tonsils: No tonsillar abscesses. Cardiovascular: Rate and Rhythm: Normal rate and regular rhythm. Pulses: Normal pulses. Pulmonary: Effort: Pulmonary effort is normal. No respiratory distress. Breath sounds: Normal breath sounds. Chest: Chest wall: No tenderness. Abdominal: General: Bowel sounds are normal. There is no distension. Palpations: Abdomen is soft. Abdomen is not rigid. Tenderness: There is no abdominal tenderness. There is no right CVA tenderness, left CVA tenderness, guarding or rebound. Negative signs include Keane's sign and McBurney's sign. Musculoskeletal: General: No tenderness. Lymphadenopathy: Head: Right side of head: No submental, submandibular, tonsillar, preauricular,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 of urologist Shy Quiroga, and is taking probiotics for bladder and vaginal health. - Family history of similar issues, with her mother also experiencing recurrent UTIs. Suspected Chemical Pregnancies - Reports two suspected chemical pregnancies this year - Finds these experiences emotionally challenging. - Inquires about the potential link between endometriosis and chemical pregnancies. Contraception Counseling - Has not used any form of control since the of her 6-month-old child. - Desires to conceive again in the future. Menstrual Cycle - Reports regular menstrual cycles, approximately 25-26 days in length. - Experiences severe aura migraines during ovulation. - Denies dyspareunia. Head: (+) migraine with aura Gastrointestinal: (+) diarrhea Genitourinary: (+) pelvic pain during ovulation, (+) heavy menstrual bleeding, (+) dysmenorrhea, (-) dyspareunia Objective Blood pressure 110/70, weight 50.3 kg (111 lb), last menstrual period 09/13/2024, not currently . GENERAL: Well-appearing; pleasant; in no apparent distress NEURO: alert and oriented x3 EXTREMITIES: normal Labs: - Urinalysis: Positive for E. coli 04/28 Tests: - (2019) Laparoscopic Surgery: Minimal endometriosis involvement in the right uterosacral area. Assessment AND Plan 1. Pelvic pain in female (R10.2) 2. Endometriosis (N80.9) 3. 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 Mensah at [facility] in [place] in 2019; currently experiencing worsening symptoms. - Discussed potential impact of endometriosis on fertility, including scarring of the fallopian tubes and inflammation. - Ordered pelvic ultrasound to evaluate current extent of endometriosis. - Will order MRI following ultrasound results to assess for deep infiltrating endometriosis, including potential bowel involvement. - Referred to Minimally Invasive Gynecologic Surgery (MIGS) - Discussed hormonal management options; patient prefers to wait for specialist evaluation. - Patient desires future conception; discussed implications for treatment options. - Patient understands and agrees with the plan. 4. Recurrent urinary tract infection (N39.0) - History of recurrent UTIs since 2022, with three episodes this year; current symptoms suggestive of another UTI. - Previous cultures positive for E. coli, a common uropathogen. 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 - Advised continuation of current probiotic regimen for bladder and vaginal health. - Patient is under the care of urologist Shy Quiroga, who has initiated appropriate prophylactic measures including D-mannose. - Patient understands and agrees with the plan. Recording using [employer] software for draft documentation of the visit was discussed with the patient/authorized brewery representative; all questions welcomed and answered. Patient/authorized brewery representative agreed to proceed Medical Decision Making: Problems: Moderate: 1+ chronic illnesses with change Data: Unique test result(s) reviewed: 2 Unique test(s) ordered: 2 Medical Decision Making Level: 4 - Moderate Rusty Zhang MD [facility] 10-14-2024 History of Present illness Narrative Subjective The patient is a 24-year-old female with a history of endometriosis presenting for recurrent UTIs, suspected chemical pregnancies, and contraception counseling. Endometriosis - Diagnosed with endometriosis, previously treated with surgery by Dr. Mensah at [facility] in [place] in 2019. - Reports worsening endometriosis symptoms, including severe pain during ovulation and heavy, painful menstrual bleeding lasting 5 days. - Experiences diarrhea during menstruation. - Suspects endometriosis may be contributing to recurrent UTIs. - Interested in exploring the possibility of another surgery for endometriosis management. Recurrent UTIs - Reports recurrent UTIs since 2022, with three episodes so far this year and suspects another current infection. - Under the care of urologist Shy Quiroga, and is taking probiotics for bladder and vaginal health. - Family history of similar issues, with her mother also experiencing recurrent UTIs. Suspected Chemical Pregnancies - Reports two suspected chemical pregnancies this year - Finds these experiences emotionally challenging. - Inquires about the potential link between endometriosis and chemical pregnancies. Contraception Counseling - Has not used any form of control since the of her 6-month-old child. - Desires to conceive again in the future. Menstrual Cycle - Reports regular menstrual cycles, approximately 25-26 days in length. - Experiences severe aura migraines during ovulation. - Denies dyspareunia. Head: (+) migraine with aura Gastrointestinal: (+) diarrhea Genitourinary: (+) pelvic pain during ovulation, (+) heavy menstrual bleeding, (+) dysmenorrhea, (-) dyspareunia Objective Blood pressure 110/70, weight 50.3 kg (111 lb), last menstrual period 09/13/2024, not currently . GENERAL: Well-appearing; pleasant; in no apparent distress NEURO: alert and oriented x3 EXTREMITIES: normal Labs: - Urinalysis: Positive for E. coli 04/28 Tests: - (2019) Laparoscopic Surgery: Minimal endometriosis involvement in the right uterosacral area. Assessment & Plan 1. Pelvic pain in female (R10.2) 2. Endometriosis (N80.9) 3. 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 Mensah at [facility] in [place] in 2019; currently experiencing worsening symptoms. - Discussed potential impact of endometriosis on fertility, including scarring of the fallopian tubes and inflammation. - Ordered pelvic ultrasound to evaluate current extent of endometriosis. - Will order MRI following ultrasound results to assess for deep infiltrating endometriosis, including potential bowel involvement. - Referred to Minimally Invasive Gynecologic Surgery (MIGS) - Discussed hormonal management options; patient prefers to wait for specialist evaluation. - Patient desires future conception; discussed implications for treatment options. - Patient understands and agrees with the plan. 4. Recurrent urinary tract infection (N39.0) - History of recurrent UTIs since 2022, with three episodes this year; current symptoms suggestive of another UTI. - Previous cultures positive for E. coli, a common uropathogen. 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 - Advised continuation of current probiotic regimen for bladder and vaginal health. - Patient is under the care of urologist Shy Quiroga, who has initiated appropriate prophylactic measures including D-mannose. - Patient understands and agrees with the plan. Recording using [employer] software for draft documentation of the visit was discussed with the patient/authorized brewery representative; all questions welcomed and answered. Patient/authorized brewery representative agreed to proceed Medical Decision Making: Problems: Moderate: 1+ chronic illnesses with change Data: Unique test result(s) reviewed: 2 Unique test(s) ordered: 2 Medical Decision Making Level: 4 - Moderate Rusty Zhang MD documented in this encounter [facility] 10-14-2024 Telephone encounter Note Referral received and will be worked on. Trang Alamo RN [facility] 10-14-2024 Miscellaneous Notes Referral received and will be worked on. Trang Alamo RN Please contact patient to schedule. documented in this encounter [facility] 10-14-2024 Telephone encounter Note Please contact patient to schedule. [facility] 09-30-2024 Radiology Diagnostic study note [facility] Imaging Services [address] [place] [address] [id number] Chest PA and Lateral MR#: [id number] Acct: [id number] Name: KIMANI OWENS Rep #: [id number] : 2000 F 24 From: Jaqui Salazar MD PCP: Care Physician,No Primary Status: [facility] Study:Chest PA and Lateral Date of Exam: 09/30/24 Exam# [id number] Ordering Dr: Ihsan Lou DO EXAM: XR Chest, 2 Views CLINICAL INDICATION: COUGH TECHNIQUE: Frontal and lateral views of the chest. COMPARISON: No relevant prior studies available. FINDINGS: LUNGS AND PLEURAL SPACES: Unremarkable. No consolidation. No pneumothorax. HEART: Unremarkable. No cardiomegaly. MEDIASTINUM: Unremarkable. Normal mediastinal contour. BONES/JOINTS: Unremarkable. No acute fracture. RAD/Chest PA and Lateral IMPRESSION: No acute cardiopulmonary process. [facility] CC: Dr[facility] Ihsan [facility], ; No Primary Care Physician ~ Kiln Stacker: Signed [facility] 07-22-2024 History of Present illness Narrative Kimani Owens is a 24 year old female who presents for problem visit missed menses , 06/11/2024 reported + HPT on 06/29/2024. HPI: 03/25/24. Stated first period since delivery came last month. Cycle was heavy. After period started feeling like symptoms and decided to take a HPT which was a faint positive. Patient does not desire at this time. Using condoms for control. Here today for urine HCG test. OB History Gravida4 Para3 Term3 Preterm0 AB1 Living3 SAB1 IAB0 Ectopic0 Multiple0 Live Births3 Punch Operator History LMP: 06/21/2023 (Exact Date), Unknown Age at Menarche: Age at First : Age at Menopause: Punch Operator History Comments: Sexual Activity: Yes; No partner data on record Contraception: No contraception data on record PAST MEDICAL HISTORY Diagnosis Date Anemia Depression with anxiety Endometriosis 11/27/2018 Minimal Kidney stones depression Recurrent UTI Has seen Dr Henry Right flank pain 11/12/2023 - Right flank pain 5/10 since this afternoon. Worse with position changes. - Denies fever, chills, new or worsened nausea, emesis - Had does of rocephin at [place] ED, transferred to OB ED for further evaluation - History of kidney stones, recurrent UTIs - Received Lithotripsy in 2022 - No vaginal bleeding, leakage of fluid, decreased FM - Vitals WNL, doptones present and WNL - Ab PAST SURGICAL HISTORY Procedure Laterality Date D&C, DIAG AND/OR THERAPEUTIC LAPAROSCOPY DIAGNOSTIC 11/27/2018 Minimal endometriosis LITHOTRIPSY XTRCORP SHOCK WAVE 2022 FAMILY HISTORY Problem Relation Age of Onset other (lupus) Mother Hypertension Father Diabetes Father No Known Problems Brother No Known Problems Brother No Known Problems Brother No Known Problems Maternal Grandmother Heart Maternal Grandfather Hypertension Paternal Grandmother Dementia Paternal Grandmother Parkinson's Paternal Grandmother Heart Attack Paternal Grandfather other (febrile seizures) Son Social History Tobacco Use Smoking status: Former Current packs/day: 0.00 Types: Cigarettes Start date: 03/2018 Quit date: 03/2023 Years since quittin.3 Smokeless tobacco: Former Types: Chew Quit date: 03/2023 Vaping Use Vaping status: Former Quit date: 06/06/2022 Substances: Nicotine Substance Use Topics Alcohol use: Never Drug use: Never Current Outpatient Medications Medication Sig potassium chloride 20 mEq TbER Take 2 tablets by mouth two times a day. Take 2 tabs 1x FLUoxetine (PROZAC) 10 mg capsule Take 1 capsule by mouth once daily for 14 days. FLUoxetine (PROZAC) 20 mg capsule Take 1 capsule by mouth once daily. Start after 14 days of 10 mg dose. vit no.129/iron/folic ( ONE DAILY ORAL) Take by mouth. (Patient not taking: Reported on 06/04/2024) acetaminophen (TYLENOL EXTRA STRENGTH) 500 mg tablet Take 1,000 mg by mouth every 8 hours as needed. No current facility-administered medications for this visit. Allergies As of Date: 07/22/2024 Allergen Noted Reaction KEFLEX [CEPHALEXIN] 03/09/2024 Other: See Comments Fully Assessed 06/04/2024 REVIEW OF SYSTEMS Abdomen: No bloating, early satiety, indigestion, or increased flatulence. No abdominal pain, nausea, vomiting, diarrhea, or constipation. Bladder: No dysuria, gross hematuria, urinary frequency, urinary urgency, or incontinence. Breast: No breast lumps, nipple d/c, overlying skin changes, redness or skin retraction. Expanded ROS: N/A Allergies and current medication updated:Yes SENSITIVE EXAM: Sensitive exam not performed. EXAM: BP 108/60 Wt 119 lb 12.8 oz (54.3kg) LMP 06/11/2024 GENERAL: pleasant, female in no apparent distress HEENT: Normocephalic and atraumatic NECK: Supple and full range of motion DERMATOLOGY: Normal and without lesions BREAST: deferred CHEST: Normal inspiratory effort ABDOMEN: Deferred PELVIC: deferred BIMANUAL: deferred NEURO: alert and oriented x3,exam grossly non-focal EXTREMITIES: normal Assessment & Plan Missed menses Orders: UA DIP,URINE HCG (POC) - HCG - negative - Declines offer for contraception - Discussed irregularities in cycles are common after delivery - Support provided - RTO as needed Kaya Coleman APRN.CNM documented in this encounter [facility] 07-22-2024 Note HNO ID: [id number] Author: KAYA COLEMAN APRN.CNM Service: ? Author Type: Tooling Inspector Type: Progress Notes Filed: 07/22/2024 14:00 Note Text: Kimani Owens is a 24 year old female who presents for problem visit missed menses , 06/11/2024 reported + HPT on 06/29/2024. HPI: 03/25/24. Stated first period since delivery came last month. Cycle was heavy. After period started feeling like symptoms and decided to take a HPT which was a faint positive. Patient does not desire at this time. Using condoms for control. Here today for urine HCG test. OB History Gravida4 Para3 Term3 Preterm0 AB1 Living3 SAB1 IAB0 Ectopic0 Multiple0 Live Births3 Punch Operator History LMP: 06/21/2023 (Exact Date), Unknown Age at Menarche: Age at First : Age at Menopause: Punch Operator History Comments: Sexual Activity: Yes; No partner data on record Contraception: No contraception data on record PAST MEDICAL HISTORY Diagnosis Date Anemia Depression with anxiety Endometriosis 11/27/2018 Minimal Kidney stones depression Recurrent UTI Has seen Dr Henry Right flank pain 11/12/2023 - Right flank pain 5/10 since this afternoon. Worse with position changes. - Denies fever, chills, new or worsened nausea, emesis - Had does of rocephin at [place] ED, transferred to OB ED for further evaluation - History of kidney stones, recurrent UTIs - Received Lithotripsy in 2022 - No vaginal bleeding, leakage of fluid, decreased FM - Vitals WNL, doptones present and WNL - Ab PAST SURGICAL HISTORY Procedure Laterality Date DANDC, DIAG AND/OR THERAPEUTIC LAPAROSCOPY DIAGNOSTIC 11/27/2018 Minimal endometriosis LITHOTRIPSY XTRCORP SHOCK WAVE 2022 FAMILY HISTORY Problem Relation Age of Onset other (lupus) Mother Hypertension Father Diabetes Father No Known Problems Brother No Known Problems Brother No Known Problems Brother No Known Problems Maternal Grandmother Heart Maternal Grandfather Hypertension Paternal Grandmother Dementia Paternal Grandmother Parkinson's Paternal Grandmother Heart Attack Paternal Grandfather other (febrile seizures) Son Social History Tobacco Use Smoking status: Former Current packs/day: 0.00 Types: Cigarettes Start date: 03/2018 Quit date: 03/2023 Years since quittin.3 Smokeless tobacco: Former Types: Chew Quit date: 03/2023 Vaping Use Vaping status: Former Quit date: 06/06/2022 Substances: Nicotine Substance Use Topics Alcohol use: Never Drug use: Never Current Outpatient Medications Medication Sig potassium chloride 20 mEq TbER Take 2 tablets by mouth two times a day. Take 2 tabs 1x FLUoxetine (PROZAC) 10 mg capsule Take 1 capsule by mouth once daily for 14 days. FLUoxetine (PROZAC) 20 mg capsule Take 1 capsule by mouth once daily. Start after 14 days of 10 mg dose. vit no.129/iron/folic ( ONE DAILY ORAL) Take by mouth. (Patient not taking: Reported on 06/04/2024) acetaminophen (TYLENOL EXTRA STRENGTH) 500 mg tablet Take 1,000 mg by mouth every 8 hours as needed. No current facility-administered medications for this visit. Allergies As of Date: 07/22/2024 Allergen Noted Reaction KEFLEX [CEPHALEXIN] 03/09/2024 Other: See Comments Fully Assessed 06/04/2024 REVIEW OF SYSTEMS Abdomen: No bloating, early satiety, indigestion, or increased flatulence. No abdominal pain, nausea, vomiting, diarrhea, or constipation. Bladder: No dysuria, gross hematuria, urinary frequency, urinary urgency, or incontinence. Breast: No breast lumps, nipple d/c, overlying skin changes, redness or skin retraction. Expanded ROS: N/A Allergies and current medication updated:Yes SENSITIVE EXAM: Sensitive exam not performed. EXAM: BP 108/60 Wt 119 lb 12.8 oz (54.3kg) LMP 06/11/2024 GENERAL: pleasant, female in no apparent distress HEENT: Normocephalic and atraumatic NECK: Supple and full range of motion DERMATOLOGY: Normal and without lesions BREAST: deferred CHEST: Normal inspiratory effort ABDOMEN: Deferred PELVIC: deferred BIMANUAL: deferred NEURO: alert and oriented x3,exam grossly non-focal EXTREMITIES: normal Assessment AND Plan Missed menses Orders: UA DIP,URINE HCG (POC) - HCG - negative - Declines offer for contraception - Discussed irregularities in cycles are common after delivery - Support provided - RTO as needed Kaya Coleman APRN.SHANTELLM [facility] 07-09-2024 Instructions Dafne Bradley APRN.[facility] - 07/09/2024 11:54 AM EST Dear Kimani, It has come to my attention you missed your appointment on July 09, 2024 without calling to cancel. Our first concern is your health. If your behavioral health concern prompting your appointment is still present, please reschedule soon so that you may receive the appropriate care by calling [phone]. It is important that you notify our office if you are unable to make an appointment. That time can then be used for other patients. If our information is incorrect, please call so we can correct our records. Since you may be new to our office, I want to alert you to our cancellation policy. Because there are many patients waiting for appointments, we request that you notify us at least 24 hours in advance of your visit if you are unable to attend. For example, if you are scheduled for 10:00am on a , you must cancel by 10:00am Saturday. According to our protocol, if a patient fails to show up for appointments, without calling to cancel, three (3) times within a rolling year period, he/she will be asked to seek care from a provider outside the Department of Psychiatry and Psychology at the [facility]. A rolling year begins with the date of your first No Show incident and goes forward for a 12 month period. This is the 1st time in twelve (12) months that without calling to cancel, you have failed to keep your appointment. It is your responsibility to keep appointments and to alert us in a timely manner when you are unable to do so. Again, if any of this information is incorrect, I apologize in advance. Please call the [facility] Office at [phone] if you have questions about this protocol or question the data on file. If there has been an error, your file will be corrected accordingly. Sincerely, Dafne Bradley APRN.HAROLDO documented in this encounter [facility] 07-09-2024 Note HNO ID: [id number] Author: DAFNE BRADLEY APRN.CNP Service: ? Author Type: Nurse Practitioner Type: Progress Notes Filed: 07/09/2024 11:54 Note Text: Patient did not log in for her virtual visit with the provider today. She did not answer her phone when she was contacted prior to the appointment. [facility] 07-09-2024 History of Present illness Narrative Patient did not log in for her virtual visit with the provider today. She did not answer her phone when she was contacted prior to the appointment. documented in this encounter [facility] 07-09-2024 Telephone encounter Note Call placed, message left reminding patient of VV with provider today. Kasey Nunes LPN [facility] 07-09-2024 Miscellaneous Notes Call placed, message left reminding patient of VV with provider today. Kasey Nunes LPN documented in this encounter [facility] 07-03-2024 Telephone encounter Note Patient notified and voiced understanding. Patient states she will wait and retake test. Denies wanting appointment at this time. Lakesha Lentz RN [facility] 07-03-2024 Miscellaneous Notes Patient notified and voiced understanding. Patient states she will wait and retake test. Denies wanting appointment at this time. Lakesha Lentz RN If LMP was 06/11/24 this is very early to be doing a test. Usually advised to wait until after missed menses. Can offer her a visit (can be virtual) to discuss further thanks Patient called stating that she had a positive test on Saturday but then had a couple negative tests. Patient repeated test this morning and had another positive home Patient asking if she can have blood test drawn? Lmp was 06/11/2024 documented in this encounter [facility] 07-03-2024 Telephone encounter Note If LMP was 06/11/24 this is very early to be doing a test. Usually advised to wait until after missed menses. Can offer her a visit (can be virtual) to discuss further thanks [facility] 07-03-2024 Telephone encounter Note Patient called stating that she had a positive test on Saturday but then had a couple negative tests. Patient repeated test this morning and had another positive home Patient asking if she can have blood test drawn? Lmp was 06/11/2024 [facility] 06-30-2024 Telephone encounter Note [employer] message sent to Pt. Alissa Pereyra RN [facility] 06-30-2024 Miscellaneous Notes Mychart message sent to Pt. Alissa Pereyra RN Antibiotics would not give a false positive test. In general tests should not be used until 4 weeks after LMP. James Hargrove MD LMP 06/11/24. This is first period since giving in March 2024. Had IUD prior to this, so unsure of what normal cycles are like. Pt not , but states she is leaking breast milk. Pt calling she took test and some have had faint lines. After period, had unprotected sex after finished bleeding. Now having some lower back pain and having cravings. Advised Pt that it is too early to tell since her LMP was 06/11/24 and her periods may fluctuate post delivery. Advised Pt to continue to monitor and to notify the office if she begins with severe abdominal pain/heavy bleeding. Advised Pt that we typically see Pt's in office around 7-8 weeks . Pt states she will continue to monitor at this time. However, Pt taking medication post intercourse prescribed by Dr. Henry Uro-MP asking if this can cause false tests? Please advise. Alissa Pereyra RN documented in this encounter [facility] 06-30-2024 Telephone encounter Note Antibiotics would not give a false positive test. In general tests should not be used until 4 weeks after LMP. James Hargrove MD [facility] Work Phone: 06-30-2024 Telephone encounter Note See phone encounter as this RN spoke to Pt on phone. Alissa Pereyra RN [facility] 06-30-2024 Miscellaneous Notes See phone encounter as this RN spoke to Pt on phone. Alissa Pereyra RN documented in this encounter [facility] 06-30-2024 Telephone encounter Note LMP 06/11/24. This is first period since giving in March 2024. Had IUD prior to this, so unsure of what normal cycles are like. Pt not , but states she is leaking breast milk. Pt calling she took test and some have had faint lines. After period, had unprotected sex after finished bleeding. Now having some lower back pain and having cravings. Advised Pt that it is too early to tell since her LMP was 06/11/24 and her periods may fluctuate post delivery. Advised Pt to continue to monitor and to notify the office if she begins with severe abdominal pain/heavy bleeding. Advised Pt that we typically see Pt's in office around 7-8 weeks . Pt states she will continue to monitor at this time. However, Pt taking medication post intercourse prescribed by Dr. Henry Uro-MP asking if this can cause false tests? Please advise. Alissa Pereyra RN [facility] 06-04-2024 Note HNO ID: [id number] Author: PALMIRA PALMER MD Service: ? Author Type: Physician Type: Progress Notes Filed: 06/04/2024 14:41 Note Text: VISIT Kimani Owens is a 24 year old year old here for visit. Delivery Summary: ROS/ Recovery: Feeding: Bottle feeding problems: Stopped after 1 weeks Menses since delivery: none Menstrual pattern prior to : No periods [place] since delivery: Resumed Depression: Has started therapy and is doing well. Now on prozac OB Depression and Anxiety Screening- This Encounter (since 06/03/2024) Over the past 2 weeks have you felt down, depressed, or hopeless? Negative Over the past two weeks, have you felt little interest or pleasure in doing things?? Negative Feeling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 Abnormal weight loss Marijuana use Complicated grief TREATMENT PLAN: Start Prozac 10 mg once daily for 2 weeks to start address the anxiety symptoms. Then increase the dose to 20 mg. Patient has reported benefit from this medication consistently in the past. Complete monitoring lab work due to patient reporting loss of appetite, weight loss, and fatigue. Schedule an appointment to start individual psychotherapy focused on helping her cope with the miscarriage as well as anxiety. See [email or web address] message with information for [facility] and [facility]. Schedule an appointment to establish care with a primary care provider. Follow up in 2 months. MEDICATION CHANGES: See above for changes Risks and benefits of the medication, including any black box warnings, were discussed with the patient. Patient is aware to reach out with any questions, concerns, or worsening of symptoms prior to the next appointment. Patient educated on risks of substance use in combination with medications and advised that any substance use along with medications may alter their effectiveness. Follow Up: See Treatment Plan I spent a total of 90 minutes on the date of the service which included preparing to see the patient, [id number] patient care, completing clinical documentation, obtaining and/or reviewing separately obtained history, counseling and educating the patient/family/caregiver, ordering medications, tests, or procedures, communicating with other HCPs (not separately reported), independently interpreting results (not separately reported), communicating results to the patient/family/caregiver, and care coordination (not separately reported). ADD ON PSYCHOTHERAPY CODE : No SIGNATURE: Dafne Bradley APRN.CNP PATIENT NAME: Kimani Owens DATE: May 07, 2024 TIME: 10:06 AM documented in this encounter [facility] 04-30-2024 Note HNO ID: [id number] Author: KAYA COLEMAN APRN.CNM Service: ? Author Type: Tooling Inspector Type: Progress Notes Filed: 04/30/2024 15:51 Note Text: Kimani Owens is a 24 year old female who presents for problem visit of UTI. HPI: Patient reports for the past 2 days having symptoms of burning with urination and strong odor. She attempted to see Urologist but out of office and unable to get appointment. OB History T3 L3 SAB1 IAB0 Ectopic0 Multiple0 Live Births3 REVIEW OF SYSTEMS Abdomen: No bloating, early satiety, indigestion, or increased flatulence. No abdominal pain, nausea, vomiting, diarrhea, or constipation. Bladder: +Dysuria, urgency, odor. Breast: No breast lumps, nipple d/c, overlying skin changes, redness or skin retraction. Expanded ROS: N/A Allergies and current medication updated:Yes SENSITIVE EXAM: Sensitive exam not performed. EXAM: BP 106/60 Wt 137 lb (62.1kg) LMP 06/21/2023 GENERAL: pleasant, female in no apparent distress NEURO: alert and oriented x3,exam grossly non-focal EXTREMITIES: normal ASSESSMENT AND PLAN: Assessment AND Plan History of recurrent UTI (urinary tract infection) Orders: UA DIP,URINE HCG (POC) Dysuria Orders: UA DIP,URINE HCG (POC) URINE CULTURE - UA positive for NIRMALA, PRO, and Nitrates - Start Macrobid 100 mg PO BID x 7 days- RX sent - Pyridium 200 mg PO every 8 hours as needed for pain- patient has medication at home - Increase hydration - Will notify patient of urine culture results and any changes to antibiotics Kaya Coleman APRN.[facility] 04-30-2024 History of Present illness Narrative Kimani Owens is a 24 year old female who presents for problem visit of UTI. HPI: Patient reports for the past 2 days having symptoms of burning with urination and strong odor. She attempted to see Urologist but out of office and unable to get appointment. OB History T3 L3 SAB1 IAB0 Ectopic0 Multiple0 Live Births3 REVIEW OF SYSTEMS Abdomen: No bloating, early satiety, indigestion, or increased flatulence. No abdominal pain, nausea, vomiting, diarrhea, or constipation. Bladder: +Dysuria, urgency, odor. Breast: No breast lumps, nipple d/c, overlying skin changes, redness or skin retraction. Expanded ROS: N/A Allergies and current medication updated:Yes SENSITIVE EXAM: Sensitive exam not performed. EXAM: BP 106/60 Wt 137 lb (62.1kg) LMP 06/21/2023 GENERAL: pleasant, female in no apparent distress NEURO: alert and oriented x3,exam grossly non-focal EXTREMITIES: normal ASSESSMENT AND PLAN: Assessment & Plan History of recurrent UTI (urinary tract infection) Orders: UA DIP,URINE HCG (POC) Dysuria Orders: UA DIP,URINE HCG (POC) URINE CULTURE - UA positive for NIRMALA, PRO, and Nitrates - Start Macrobid 100 mg PO BID x 7 days- RX sent - Pyridium 200 mg PO every 8 hours as needed for pain- patient has medication at home - Increase hydration - Will notify patient of urine culture results and any changes to antibiotics Kaya Coleman APRN.CNM documented in this encounter [facility] 04-15-2024 Telephone encounter Note Consult to Behavior Health, please assist and advice. Thank you [facility] 04-15-2024 Miscellaneous Notes Consult to Behavior Health, please assist and advice. Thank you documented in this encounter [facility] 04-15-2024 Instructions Kaya Coleman APRN.CNM - 04/15/2024 11:19 AM EST Here are some links for wonderful Providers here in the community and surrounding areas. Do not hesitate to contact their offices, many are offering virtual visits during this time. 1-311-3-UOTZ9FLEL - [facility] Mental Health Hotline If you are in suicidal crisis, please call or text 6-294-280-TALK ( ) or visit the National Suicide Prevention Lifeline website. mchb.[facility] hospital[facility].gov [facility] Behavioral [facility] Psychology, Psychiatry, Counseling Connect with therapist/ can do virtual visits [phone] Referral to the [facility] To schedule an appointment, please call the Center for Behavior[facility] Health Appointment Line: [phone] option 1 [facility] [place] [address] [address] [place], [place] [id number] [address] [address] [facility] [address] [place], [place] [address] [address] [address] Esthela Turner MD [address] [place], [place] [address] [facility] [address] [facility], [address] [place] [address] [facility] [address] [place] [address] [facility] [place] / [place] [phone]/ [phone] Andie Hobson [address] [facility] [phone] [facility] [place] / [place] [phone] Behavioral health services of [facility] [address] [place] [address]/ [place] [phone] Zohreh Monterroso, DILMA, CLC [facility] Workshops, telehealth and at home visits. [phone] Humanistic counseling center 20 locations [facility], [place], [place], [place], [place], [place], [facility], [place], [place], [place], [place], [place], [place], [facility], [place], [place] ,[facility], [place], [place],[facility], [facility], [place], [facility], [facility], [place] [email or web address] medical [email or web address] [phone] Psychotherapy resources outside of [facility] are listed below Pixable Psychotherapy Web: https://www.Mamaherb/ Support International Online Provider Directory https://SpinPunch/ [facility] https://DreamHeart.HealthLinkNow/ Partners [facility] and Wellness Web: https://ZhenXin/ Center for Effective Living Web: https://www.effectiveSimpleliving.HealthLinkNow/ LifeStance Web: https://tuta.co.HealthLinkNow/location/s espinosa/[place]/ [facility] Web: https://www.signaturehealthinc.or g/ The Centers Web: https://theEnvision Blue Green.org/ Recovery Resources Mental health and substance abuse help Web: https://www.WEEZEVENTsVaultize & RESOURCES Support International Direct peer support and connection to professional resources Non-Emergency Helpline Phone: / Text: [phone] Web: https://www..net/ Online Provider Directory: https://SpinPunch/ Online Support Meetings: https://www..net/get-he lp/uux-krestu-trdzfsm-meetings/ AP Baby and Appraiser Services Web: https://Aqua-tools.IMRIS Inc./ MotherToBaby Expert information on medication use during and Text: 818.880.8302 Web: https://Connectiva Systems/ NATIONAL REGISTRY FOR PSYCHIATRIC MEDICATIONS Currently studying the safety of antidepressants, ADHD medications and atypical antipsychotics taken during TO PARTICIPATE CALL TOLL-FREE: Web: https://womenentalhealth.org/re search/pregnancyregistry/ Support Groups: [facility]- Follow on facebook Baby Bistro support group led by [facility] department [facility] - Support Group [facility].org The POEM support group [phone] Www.poemonline.org Follow on facebook - POJOCLEYN wang chapter Online support meetings PSI https://www..net/get-he lp/uxd-podknt-bqihmqz-meetings/ [facility] mommy and me virtual support group 11:30-1pm Support for mothers and new babies and toddlers [place] childbirth education: Childbirth @ccf.org or call 826-936-1865 CRISIS: CRISIS HOTLINE [phone], 911 or go to the nearest . [facility] [phone] / [facility] [phone] https://www.whmhrb.org Crisis text line text the word HOME to [id number] [facility] [address] [facility] [address] [email or web address]t [employer] Sigrid Tolliver clinical counseling [address] [facility] [address] [place] [address] [email or web address] [phone] Holding space psychotherapy Annabelle Hawthorne DIRECTOR MICROBIOLOGY FIRER LOCOMOTIVE-S [address] [facility] www.[employer] [phone]/ [place] [phone] They all offer virtual. All work with trauma Support groups Online support meetings PSI https://www..net/get-he lp/mtd-mltnks-crpwgut-meetings/ Here are the support groups they offer: Support of parents of 1 to 4 years old children POEM ( Outreach and Encouragement for Moms) offers free support for mothers experiencing depression, anxiety, and other mood and anxiety disorders. Masks are recommended but not required. No pre-registration required. Babies in arms welcome. meetings now take place on the and Saturday of each month Location: [facility] [address] [place] [address] Room 122 (library room) 7-8:00 p.m. When you enter the [facility] parking lot off of [address] the entrance door closest to our meeting room is on the front of the building toward the right. For those who are more comfortable with a virtual platform, PO offers online support group options several days of the week. To register for an online group or to find out more about POEM, website at: https://mhaohio.org/get-help/[facility]-vcdiru-zxvwiy/poem-services/ offer a confidential helpline: private Facebook group is called CASIE Suarez Here are the groups they offer: Traumatic childbirth resources: Http://pattch.org/ https://www.alexSimpleai [employer]HealthLinkNow/ documented in this encounter [facility] 04-15-2024 Note HNO ID: [id number] Author: KAYA COLEMAN APRN.CNM Service: ? Author Type: Tooling Inspector Type: Progress Notes Filed: 04/15/2024 12:08 Note Text: EARLY VISIT Kimani Owens is a 23 year old here for 2 week visit. Delivery Summary: by Hema Coleman on 03/25/2024 at 4:35 PM. [place]- male 7lbs, 11 ozs. ROS: General: Denies any fever or chills Hypertension Screening: Headache? No. Visual Changes? No Epigastric Pain? No Increased Swelling? No Taking any BP medications at home? No If applicable, monitoring BP at home? (If Yes, include results) NA Mood: sad Depression: denies, admits to some feelings of depression. Stated tearful at times and feels sad. Denies any SI/HI. Able to care for self and . Feeding: Bottle feeding problems: x2 days then d/c Bladder: No dysuria, gross hematuria, urinary frequency, urinary urgency, or incontinence Bowel symptoms: Negative for abdominal discomfort, blood in stools or black stools and change in bowel habits Abdomen: N/A Bleeding: light flow, brown Bottom and Perineum: No issues Sleep: no sleep concerns and sleeps in bassinet/crib in parent's room, feels rested [place] since delivery: Not resumed Emotional support: Yes Exercise: N/A Other issues: None SENSITIVE EXAM: Sensitive exam not performed. PHYSICAL EXAMINATION: LMP 06/21/2023 (Exact Date) General: pleasant,female in no apparent distress, AANDO x 3. Skin warm and intact. Breast: Deferred Abdomen: Deferred /Incision: N/A Pelvic: Deferred Bimanual: Deferred [place] Depression Scale Total: 8 ASSESSMENT AND PLAN: 23 year old status post with course complicated by feelings of depression [place] score- 9 Consult to Women's behavioral health- patient interested in counseling/ evaluation for medications. MH handout provided for services/ phone numbers/ Crisis phone number provided Hx of taking Celexa and Prozac post - declines medications today 6. Support provided Follow up: Return to Clinic for 6 week visit and as needed Kaya Coleman APRN.CNM [facility] 04-15-2024 History of Present illness Narrative EARLY VISIT Kimani Owens is a 23 year old here for 2 week visit. Delivery Summary: by Hema Coleman on 03/25/2024 at 4:35 PM. [place]- male 7lbs, 11 ozs. ROS: General: Denies any fever or chills Hypertension Screening: Headache? No. Visual Changes? No Epigastric Pain? No Increased Swelling? No Taking any BP medications at home? No If applicable, monitoring BP at home? (If Yes, include results) NA Mood: sad Depression: denies, admits to some feelings of depression. Stated tearful at times and feels sad. Denies any SI/HI. Able to care for self and infant. Feeding: Bottle feeding problems: x2 days then d/c Bladder: No dysuria, gross hematuria, urinary frequency, urinary urgency, or incontinence Bowel symptoms: Negative for abdominal discomfort, blood in stools or black stools and change in bowel habits Abdomen: N/A Bleeding: light flow, brown Bottom and Perineum: No issues Sleep: no sleep concerns and sleeps in bassinet/crib in parent's room, feels rested [place] since delivery: Not resumed Emotional support: Yes Exercise: N/A Other issues: None SENSITIVE EXAM: Sensitive exam not performed. PHYSICAL EXAMINATION: LMP 06/21/2023 (Exact Date) General: pleasant,female in no apparent distress, A&O x 3. Skin warm and intact. Breast: Deferred Abdomen: Deferred /Incision: N/A Pelvic: Deferred Bimanual: Deferred [place] Depression Scale Total: 8 ASSESSMENT AND PLAN: 23 year old status post with course complicated by feelings of depression [place] score- 9 Consult to Women's behavioral health- patient interested in counseling/ evaluation for medications. MH handout provided for services/ phone numbers/ Crisis phone number provided Hx of taking Celexa and Prozac post - declines medications today 6. Support provided Follow up: Return to Clinic for 6 week visit and as needed Kaya Coleman APRN.CNM documented in this encounter [facility] 03-30-2024 Telephone encounter Note Pt notified and advised to avoid nipple stimulation as well. Pt voiced understanding. Alissa Pereyra RN [facility] 03-30-2024 Miscellaneous Notes Pt notified and advised to avoid nipple stimulation as well. Pt voiced understanding. Alissa Pereyra RN Can try taking Pseudofed for 2-3 days. Can add Claritin once daily as well. Chata Braun APRN.CNM Patient delivered 03/25/24. Asking how she can dry up her milk supply. She is wearing a tight fitting bra and applying ice. She did hand express some milk due to engorgement. Palmira Del Angel RN documented in this encounter [facility] 03-30-2024 Telephone encounter Note Can try taking Pseudofed for 2-3 days. Can add Claritin once daily as well. Chata Braun APRN.CNM [facility] Work Phone: 03-30-2024 Note HNO ID: [id number] Author: PALMIRA DEL ANGEL RN Service: ? Author Type: Registered Nurse Type: Progress Notes Filed: 03/30/2024 10:14 Note Text: Patient delivered via at [facility] on 03/25/24 per Kaya Coleman CNM . See OB Outcome note. Palmira Del Angel RN [facility] 03-30-2024 History of Present illness Narrative Patient delivered via at [facility] on 03/25/24 per Kaya Coleman CNM . See OB Outcome note. Palmira Del Angel RN documented in this encounter [facility] 03-30-2024 Telephone encounter Note Patient delivered 03/25/24. Asking how she can dry up her milk supply. She is wearing a tight fitting bra and applying ice. She did hand express some milk due to engorgement. Palmira Del Angel RN [facility] 03-26-2024 Note [facility] Medical Records Department [address] [place] [address] Discharge Summary 03/26/24 0647 MR#: [id number] Acct: [id number] Name: KIMANI OWENS Rep #: [id number] : 2000 23 From: Kaya Coleman CNM PCP: Care Physician,No Primary Status:ADM IN Location: [place] [id number] Providers Date of Admission: 03/25/24 Primary Care Physician: No Primary Care Phys Reason For Visit: VAGINAL DELIVERY Diagnosis Discharge Diagnosis (1) Meconium in amniotic fluid: Status: Acute Code(s): P96.83 - Meconium staining (2) (spontaneous vaginal delivery): Status: Acute Code(s): O80 - Encounter for full-term uncomplicated delivery (3) Anxiety and depression: Status: Acute Code(s): F41.8 - Other specified anxiety disorders Plan PPD 1 Routine care support D/C home after 24 hours per patient request Medications at Discharge Home Medications multivitamin no.47-iron fum 27 mg-folate no.1 1 mg-dha 300 mg capsule (PNV-DHA) 1 cap PO DAILY 08/09/23 naproxen 500 mg tablet 500 mg PO Q8H PRN PRN Pain Score 1-10 #0 tabs 03/26/24 Hospital Course Operations None Procedures None Summary of Care Provided Minutes Spent on Discharge: 15 Hospital Course: Patient had vaginal delivery. Hospital course was uneventful. Physical Exam Narrative Patient seen at bedside. Denies pain. Ambulating and voiding without difficulty. Lochia decreased. Desires discharge home today. Const alert and oriented x3 General Appearance: Negative for in distress HEENT normocephalic Eyes General Eye: normal appearance of both eyes Neck General: normal visual inspection Chest Chest: symmetrical chest wall rise Resp normal respiratory effort and normal air movement Effort and Inspection: symmetric chest movement; Negative for tachypneic Auscultation: clear to auscultation bilaterally Cardio regular rate and regular rhythm Peripheral Pulses: pulses 2+ throughout GI normal to inspection, nondistended, normoactive bowel sounds Narrative: Ice to perineum OB / External Speculum: vaginal bleeding and other Lochia decreasing Uterus Palpation: uterus fundus firm (Below U) Extremity normal to inspection, full ROM and normal capillary refill Skin no rashes or lesions noted Neuro oriented x3, CN's II-XII intact bilaterally and gait normal Psych mental status grossly normal, thought process normal and activity/motor behavior normal Weight / BMI Weight Weight: 163 lb Body Mass Index (BMI) 27.9 ABG / Lab / Microbiology Data 03/25/24 07:50 Laboratory: Laboratory Results - last 24 hr 03/25/24 07:50: WBC 9.8, RBC 3.84 L, Hgb 9.8 L, Hct 31.1 L, MCV 81.0, MCH 25.5 L, MCHC 31.5 L, RDW Std Deviation 42.1, RDW Coeff of Zi 14.4, Plt Count 180, MPV 11.8, Immature Gran % (Auto) 0.600, Neut % (Auto) 67.7, Lymph % (Auto) 21.5, [place] % (Auto) 8.8, Eos % (Auto) 1.0, Baso % (Auto) 0.4, Absolute Neuts (auto) 6.6, Absolute Lymphs (auto) 2.10, Nucleated RBC % 0, Syphilis Total Ab Non- reactive, Blood Type A POSITIVE, Antibody Screen NEGATIVE 03/25/24 11:00: Urine Opiates Screen NEGATIVE, Urine Methadone Screen NEGATIVE, Ur Barbiturates Screen NEGATIVE, Ur Phencyclidine Scrn NEGATIVE, Ur Amphetamines Screen NEGATIVE, MDMA (Ecstasy) Screen NEGATIVE, U Benzodiazepines Scrn NEGATIVE, Urine Cocaine Screen NEGATIVE, U Cannabinoids Screen POSITIVE H, Ur Drug Screen Comment D/C Instructions Discharge Diet: No restrictions Discharge Activity: Return to Normal Activity, No Restrictions, May Drive, May Shower and May Take a Tub Bath (Warm water only. No bath salts, soaps, bubbles) May resume sexual activity in: 6-8 weeks Weight Bearing Status: Weight bearing as tolerated Call your doctor if you observe: Fever of 101 or Higher, Inability to urinate, Using more than 1 pad per hour, Shortness of breath, Dizziness, Chest pain, Calf discomfort and Uncontrolled pain DC O2, CPAP, BIPAP Needs Additional Home O2 Discharge instructions: No DC home with Oxygen: No Please Follow Up With: [facility] When: 2 weeks in office or virtual Meaningful Use Info Meaningful Use Meaningful Use Diagnoses (Choose all that apply): None applicable Ischemic Stroke Statin Dosing Therapy Reference: STATIN DOSE THERAPY REFERENCE: * Patients > 75 years receive moderate or high dose statin therapy. * Patients 75 years or YOUNGER should receive HIGH intensity statin dose unless contraindicated. You will be required to document reason for non-treatment if statin daily dose does not meet guidelines. HIGH DOSE STATIN THERAPY DAILY Atorvastatin > than or = to 40 mg Rosuvastatin > than or = to 20 mg Amlodipine + Atorvastatin > than or = to 2.5/40 mg Ezetimibe + Simvastatin 10/80 mg Simvastatin 80mg Di (more content not included)... [facility] 03-19-2024 Note Indication Evaluation of growth, Evaluation of well-being circumvallate placenta from outside scan, Polyhydramnios Impression REMOTE READ - Single, live, intrauterine . - The biometry is consistent with the assigned gestational dating. - The EFW is 3811 g, at the 81%. AC is at the 94%. - The amniotic fluid volume is moderate polyhydramnios with an MVP of 10.2 cm and an JESSICA of 33.4 cm. - The placenta is anterior, fundal. - BPP 12/11. - No malformations visualized on a limited survey as detailed below. Recommendations Discuss delivery at 39 weeks due to moderate polyhydramnios If delivery is declined then twice weekly testing recommended (NST alternating with BPP) Maternal Assessment Height 5 cm Height (ft) 0 ft Height (in) 2 in Physical Exam Initial weight (lb) 115 lb Initial BMI 23.00 kg/m Maternal assessment other: 4 Para 2 Method Transabdominal ultrasound examination [place] . Number of fetuses: 1 Dating LMP on: 06/21/2023 GA by LMP 38 w + 6 d CHRISTIE by LMP: 03/27/2024 GA by prior assessment 38 w + 6 d CHRISTIE by prior assessment: 03/27/2024 Ultrasound examination on: 03/19/2024 GA by U/S based upon: AC, BPD, Femur GA by U/S 38 w + 6 d CHRISTIE by U/S: 03/27/2024 Assigned: based on stated CHRISTIE, selected on 03/19/2024 Assigned GA 38 w + 6 d Assigned CHRISTIE: 03/27/2024 General Evaluation Cardiac activity present. FHR 131 bpm. movements: present. Presentation: cephalic Placenta: Placental site: anterior, fundal. circumvallate placenta from outside scan Umbilical cord: Cord vessels: 3 vessel cord Amniotic fluid: Amount of AF: polyhydramnios. MVP 10.2 cm. JESSICA 33.4 cm. Q1 8.3 cm, Q2 8.4 cm, Q3 6.5 cm, Q4 10.2 cm Biophysical Profile 2: breathing movements 2: Gross body movements 2: tone 2: Amniotic fluid volume 8 Biophysical profile score Growth Overview Exam date GA BPD (mm) HC (mm) AC (mm) FL (mm) HL (mm) EFW (g) 12/05/2023 23w 6d 60.3 70% 224.6 64% 205.7 80% 40.7 38% 39.6 48% 688 65% 02/19/2024 34w 5d 93.2 >99% 338.9 93% 315.1 76% 63.5 17% 2629 61% 03/19/2024 38w 6d 97.9 96% 354.3 85% 362.6 94% 72.3 44% 3811 81% Biometry Standard BPD 97.9 mm 40w 1d 96% Hadlock OFD 124.3 mm -/- 92% Nicolaides HC 354.3 mm -/- 85% Cecilia AC 362.6 mm 40w 1d 94% Hadlock Femur 72.3 mm 36w 3d 44% Cecilia EFW 3,811 g -/- 81% Hadlock EFW (lb) 8 lb EFW (oz) 6 oz EFW by: Sita (HC-AC-FL) Extended Statistical Consultant 5.2 mm Extremities / Bony Struc FL / HC 0.20 Other Structures FHR 131 bpm Anatomy Lateral ventricles: normal Cavum septi pellucidi: normal Cerebellum: suboptimally visualized Cisterna magna: suboptimally visualized 4-chamber view: normal RVOT view: normal LVOT view: normal 3-vessel view: normal Heart / Thorax Situs: situs solitus (normal) Diaphragm: normal Stomach: normal Kidneys: normal Bladder: normal Performed By: Lakesha Tillman RDMS, RVT Read By: Marley Elizalde M.D. [facility] 03-19-2024 Progress note Formatting of t his note might be different from the original. S: Kimani Owens is a 23 year old female who presents at 38 weeks gestation for a routine visit. Just completed growth US and BPP. BPP 12/11, EFW 82%, JESSICA 33. Positive movement. Occasional contractions. Currently taking Macrobid for UTI. C/O issues with hemorrhoid. Has tried OTC cream without relief. Denies headache, visual changes, chest pain, shortness of breath, vaginal bleeding, leakage of fluid, or dysuria. O: See flow sheet Gen: No apparent distress Abd: Gravid, nontender: ASSESSMENT/PLAN: 1. Encounter for supervision of other normal in third trimester 2. Circumvallate placenta during in third trimester, antepartum 3. 38 weeks gestation of 4. Polyhydramnios in third trimester complication, single or unspecified fetus - Continue Macrobid 100 mg PO BID- complete all medications - Moderate polyhydramnios- induction of labor already scheduled for 39 weeks gestation - Reviewed labor precautions and when to notify office - Anusol rectally BID x 7 days- RX sent - RTO for PP visit Kaya Coleman APRN.CNM [facility] 03-19-2024 Miscellaneous Notes S: Kimani Owens is a 23 year old female who presents at 38 weeks gestation for a routine visit. Just completed growth US and BPP. BPP 12/11, EFW 82%, JESSICA 33. Positive movement. Occasional contractions. Currently taking Macrobid for UTI. C/O issues with hemorrhoid. Has tried OTC cream without relief. Denies headache, visual changes, chest pain, shortness of breath, vaginal bleeding, leakage of fluid, or dysuria. O: See flow sheet Gen: No apparent distress Abd: Gravid, nontender: ASSESSMENT/PLAN: 1. Encounter for supervision of other normal in third trimester 2. Circumvallate placenta during in third trimester, antepartum 3. 38 weeks gestation of 4. Polyhydramnios in third trimester complication, single or unspecified fetus - Continue Macrobid 100 mg PO BID- complete all medications - Moderate polyhydramnios- induction of labor already scheduled for 39 weeks gestation - Reviewed labor precautions and when to notify office - Anusol rectally BID x 7 days- RX sent - RTO for PP visit Kaya Coleman APRN.CNM documented in this encounter [facility] 03-19-2024 Instructions Ayanna Brand LPN - 03/19/2024 10:47 AM EST SEQUENTIAL SCREENINGS The [facility] offers sequential screenings for women who are interested in screenings for chromosomal abnormalities and certain defects during a . The sequential screen combines ultrasound and blood tests to determine the risk of chromosomal abnormalities, including Down's Syndrome (Trisomy 21) and Trisomy 18, as well as open neural tube defects including spina bifida. Ultrasound examination is performed between 11 weeks and 13 weeks gestational age. Blood tests are drawn after the ultrasound and again later in the between 15 and 21 weeks gestational age. Please let your physician know if you are interested in this testing. It will require an appointment with our industrial technician. This is not an ultrasound performed by a physician in our office during a routine visit. SIGNS AND SYMPTOMS OF LABOR 1. Contractions every 10 minutes or more often 2. Clear, pink, or brownish fluid (water) leaking from vagina 3. Feeling that baby is pushing down, pressure 4. Low, dull backache 5. Cramps that feel like a period 6. Cramps with or without diarrhea If you notice any of the above symptoms, contact our office at [phone] and ask to speak with a nurse. After hours, you can call doctors registry at [phone] OR call [facility] at [phone] and ask to have the doctor senior telecommunications engineer paged. If you consider this an emergency, dial 9-1 or go to your nearest emergency department. NEED HELP? Are you dealing with a violent or abusive relationship? Are you a victim of rape or sexual assult? Call [facility] 24 hour Crisis Hotline: 775.428.1436 or 808-526-5854. MANUAL Your Guide to a Healthy manual is now on-line. Visit [facility].org/HealthyPregna ncyGuide to download your free copy documented in this encounter [facility] 03-16-2024 Telephone encounter Note Patient notified. Palmira Del Angel RN [facility] 03-16-2024 Miscellaneous Notes Patient notified. Palmira Del Angel RN Left message to call office. Lakesha Lentz RN Discussed with SW. Will send RX for Macrobid 100 mg PO BID x 7 days. Please notify patient she will need to finish all medications. Kaya Coleman APRN.CNM 38w3d Patient called to inquire about treatment for UTI. Reviewed message below. Patient states that it did not treat the infection. Still having dysuria and urine odor. Palmira Del Angel RN ----- Message from Kaya Coleman APRN.CNM sent at 03/16/2024 7:58 AM EST ----- Urine culture reviewed. Recently treated with Fosfomycin 3gm. Kaya Coleman APRN.CNM documented in this encounter [facility] 03-16-2024 Telephone encounter Note Left message to call office. Lakesha Lentz RN [facility] 03-16-2024 Telephone encounter Note Discussed with SW. Will send RX for Macrobid 100 mg PO BID x 7 days. Please notify patient she will need to finish all medications. Kaya Coleman APRN.CNM [facility] 03-16-2024 Telephone encounter Note 38w3d Patient called to inquire about treatment for UTI. Reviewed message below. Patient states that it did not treat the infection. Still having dysuria and urine odor. Palmira Del Angel RN [facility] 03-16-2024 Telephone encounter Note ----- Message from Kaya Coleman APRN.CNM sent at 03/16/2024 7:58 AM EST ----- Urine culture reviewed. Recently treated with Fosfomycin 3gm. Kaya Coleman APRN.CNM [facility] 03-13-2024 Note HNO ID: [id number] Author: ALLISON GONZALEZ MA Service: ? 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 Reason for Outreach Medicaid OB/Peds Care Gaps due: N/A Patient Contacted: Spoke to patient/parent/or legal guardian Patient identified by name and : Yes Medicaid OB/Peds actions taken: Elizabeth/Blood Bank Technician added Navigation Signature: Allison Cisneros MA March 13, 2024 10:24 AM documented in this encounter [facility] 03-13-2024 Note Patient Outreach (NE TNAV) KIMANI OWENS ([id number]) 2000 F Date Time Provider Department 03/13/24 ALLISON GONZALEZ During your visit today, we recorded the following information about you: Allison Gonzalez MA 03/13/2024 10:26 AM Signed POPULATION HEALTH NAVIGATION OUTREACH Action/FYI 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 Reason for Outreach Medicaid OB/Peds Care Gaps due: N/A Patient Contacted: Spoke to patient/parent/or legal guardian Patient identified by name and : Yes Medicaid OB/Peds actions taken: Elizabeth/Blood Bank Technician added Navigation Signature: Allison Cisneros MA March 13, 2024 10:24 AM Allergies As of Date: 03/13/2024 Noted Allergy Reaction KEFLEX (CEPHALEXIN) 03/09/2024 14 - Other: See Comments Comments: thrombocytopenia Date Reviewed: 03/12/2024 Reviewed by: Bonnie Bryan MA - Fully Assessed Reason for Visit: Population Health Navigation Outreach [3910] Cmt: Ob/peds Prescriptions as of 03/13/2024 - fosfomycin (MONUROL) 3 g pack - omeprazole (PRILOSEC) 20 mg capsule Take 1 capsule by mouth two times a day. - ondansetron orally disintegrating (ZOFRAN ODT) 4 mg disintegrating tablet DISSOLVE 1 TABLET IN MOUTH EVERY 6 HOURS NEEDED FOR NAUSEA AND VOMITING - vit no.129/iron/folic ( ONE DAILY ORAL) Take by mouth. - acetaminophen (TYLENOL EXTRA STRENGTH) 500 mg tablet Take 1,000 mg by mouth every 8 hours as needed. Problem List As Of Date 03/13/2024 Noted Resolved Depression with anxiety [F41.8] Endometriosis [N80.9] 12/10/2018 Right flank pain [R10.9] 11/12/2023 11/21/2023 with care elsewhere in [facility]*11/21/2023 History of recurrent UTI (urinary tract infecti*11/21/2023 History of miscarriage [Z87.59] 11/21/2023 Dysuria [R30.0] 11/21/2023 Circumvallate placenta, second trimester [O43.1*11/21/2023 Encounter for supervision of high risk pregnanc*11/21/2023 Benign gestational thrombocytopenia in second t*12/05/2023 Recurrent UTI [N39.0] 12/18/2023 History of kidney stones [Z87.442] 12/18/2023 Heartburn during in third trimester [*02/19/2024 Polyhydramnios in third trimester [O40.3XX0] 02/27/2024 Encounter Status:Closed by ALLISON GONZALEZ on 03/13/24 [facility] 03-12-2024 Progress note Formatting of t his note might be different from the original. S: Kimani Owens is a 23 year old female who presents as an add on visit for not feeling right. Patient seen in office yesterday and earlier this week. Currently being treated for yeast (monistat 7 vaginally) and Took Fosfomycin 3gm x 1 dose for UTI. Patient reports she is feeling weak, achy, full body aches, and pain all over. Tearful during visit. Concerned over blood pressures- 124/72. Denies current headache, vision changes, SOB, or CP. O: See flow sheet Gen: No apparent distress Abd: Gravid, nontender ASSESSMENT/PLAN: 1. Encounter for supervision of other normal in third trimester 2. Circumvallate placenta during in third trimester, antepartum 3. 37 weeks gestation of 4. Pelvic pressure in 5. Polyhydramnios in - Repeat US next visit to measure JESSICA - Continue current treatment for yeast with Monistat 7 vaginally x 7 nights - Extra Strength Tylenol 1000 mg PO PRN for fever/ aches and pain - Increase hydration - Patient requesting elective induction of labor after 39 weeks gestation. - R/B/A to IOL reviewed and consent signed. Patient made aware that she may be postponed at anytime due to being elective. - Scheduled for 03/25/24 (patient's request) at 7am- Pitocin / Bailey - GBS negative - Labor precautions reviewed - RTO next week aKya Coleman APRN.CNM [facility] 03-12-2024 Miscellaneous Notes S: Kimani Owens is a 23 year old female who presents as an add on visit for not feeling right. Patient seen in office yesterday and earlier this week. Currently being treated for yeast (monistat 7 vaginally) and Took Fosfomycin 3gm x 1 dose for UTI. Patient reports she is feeling weak, achy, full body aches, and pain all over. Tearful during visit. Concerned over blood pressures- 124/72. Denies current headache, vision changes, SOB, or CP. O: See flow sheet Gen: No apparent distress Abd: Gravid, nontender ASSESSMENT/PLAN: 1. Encounter for supervision of other normal in third trimester 2. Circumvallate placenta during in third trimester, antepartum 3. 37 weeks gestation of 4. Pelvic pressure in 5. Polyhydramnios in - Repeat US next visit to measure JESSICA - Continue current treatment for yeast with Monistat 7 vaginally x 7 nights - Extra Strength Tylenol 1000 mg PO PRN for fever/ aches and pain - Increase hydration - Patient requesting elective induction of labor after 39 weeks gestation. - R/B/A to IOL reviewed and consent signed. Patient made aware that she may be postponed at anytime due to being elective. - Scheduled for 03/25/24 (patient's request) at 7am- Pitocin / Bailey - GBS negative - Labor precautions reviewed - RTO next week Kaya Coleman APRN.CNM documented in this encounter [facility] 03-12-2024 Instructions Kaya Coleman APRN.CNM - 03/12/2024 1:22 PM EST Images from the original note were not included. Preparing for labor: Eat dates to promote spontaneous labor! Has an oxytocin-like effect on the body, leading to increased sensitivity of the uterus. Stimulates uterine contractions. Reduces hemorrhage the way oxytocin does. Date fruit contains saturated and unsaturated fatty acids such as oleic, linoleic, and linolenic acids, which are involved in saving and supplying energy and construction of prostaglandins. In addition, serotonin, tannin, and calcium in date fruit contribute to the contraction of smooth muscles of the uterus. Date fruit also has a laxative effect, which stimulates uterine contractions. Six dates per day is the magic number--provided that you re eating smaller deglet noor dates. Deglet noor dates are about 1 inch long. Medjool dates can be up to 2 inches long. If you re eating medjool dates, you only need about 3 dates to reach the 75 grams recommended in the studies. Not sure which type of date you have in your refrigerator? It s probably a deglet noor. How to Eat Dates During Dates are a healthy and delicious snack, so how can you add them to your diet? Add dates during in this awesome oatmeal recipe. Add dates to replace sugar in your favorite recipe or to elier your homemade almond milk. Use dates and nuts to make an easy pie crust in the food and beverage attendant. Add soaked dates to homemade nut butter for a sweet treat. Add dates to elier homemade salad dressing. Add dates during easily with these yummy (paleo friendly) bars made from dates. What Is Red Raspberry Iliamna Tea? Red raspberry leaf tea comes from the leaves of the red raspberry plant. This herbal tea has been used for centuries to support respiratory, digestive and uterine health, particularly during and childbearing years. While usually known as a female herb, red raspberry leaf tea can also help support the prostate and various stomach ailments in children. How It Can Help and Red raspberry leaf tea can help to make labor faster and reduce complications and interventions during . One study found that women who consumed RRL tea regularly are less likely to go overdue or give prematurely. These women may also be less likely to receive an artificial rupture of their membranes or require a section, forceps, or vacuum than the women in the control group. Red raspberry leaf has many other benefits to , , and too. How Much Red Raspberry Iliamna Tea to Drink? With your doctor or portable machine cutter s approval, start with 1 cup of red raspberry leaf tea per day starting in the second trimester. Watch for any uterine cramping or other reactions. If you don t experience any, you can talk to your healthcare provider about increasing to 2 cups per day. Again, watch for any uterine cramping. If you notice any, cut back on your dosage for two weeks and try again. Keep in mind, some moms have irritable uteruses and can only drink red raspberry leaf tea once they reach their due date because of uterine cramping. Is Red Raspberry Iliamna Tea the Same as Raspberry Iliamna Tea? How About Plain Old Raspberry Tea? Sometimes. You really need to look at the ingredients to be sure. Note that there is no difference between red raspberry leaf and raspberry leaf. Pantheon or Weatlas Raspberry Iliamna Tea are two good brands. The red raspberry leaf teas that we recommend are 100% red raspberry leaf. Other teas labeled as raspberry are often a blend of rosehips, hibiscus, raspberry leaves, and raspberry flavor. So they may not be as effective. The teas to avoid are raspberry-flavored herbal teas, which may have ingredients like hibiscus, gildarod hips, apples, elderberries, natural and artificial raspberry flavors. Teas like this don t contain raspberry leaf at all and thus won t offer any of the potential benefits of RRLT outlined in this article. The [employer] www.[employer] I named this 'circuit' after my friend Reena Nikko, who shared and discussed it with me when I was working with a client whose labor seemed to be stalled out and no longer progressing... This circuit is useful to help get the baby lined up, ideally, in the Left Occiput Anterior (FERNANDO) Position, both before labor begins and when some corrections need to be done during labor. Prenatally, this position set can help to rotate a baby. As a natural method of induction, this can help get things going if baby just needed a gentle nudge of position to set things off. To the best of my knowledge, this group of positions will not hurt a baby that is already lined up correctly. - Tony Walker Before you Begin..... This circuit takes at least 90 minutes to complete so clear your schedule and make mental preparations so you can relax in your environment. The second step requires a lot of pillows so gather them up before beginning Before starting, you should empty your bladder! Have a nice drink nearby, and make sure it has a straw! If you are having contractions, this circuit should bedone through contractions, try not to change positions between steps Step One: Open-knee Chest Stay in this position for 30 minutes, start in cat/cow, then drop your chest as low as you can to the bed or the floor and your bottom as high as you can. Knees should be fairly wide apart, and the angle between the torso/thighs should be wider than 90 degrees. Wiggle around, prop with lots of pillows and use this time to get totally relaxed. This position allows the baby to scoot out of the pelvis a bit and gives them room to rotate, shift their head position, etc. If the person finds it helpful,careful positioning with a rebozo under the belly, with gentle tension from a support person behindcan help maintain this position for the full 30minutes. Step Two: Exaggerated Left Side Lying Roll to your left side, bringing your top leg as high as possible and keeping your bottom leg straight. Roll forward as much as possible,again using a lot of pillows. Sink into the bed and relax some more. If you fall asleep, that's totally okay and you can stay there! If not, stay here for at least another half an hour. Try and get your top right leg up towards your head and get as rolled over onto your belly as much as possible. If you repeat the circuit during labor, try alternating left and right sides. We know the photo the left is actually right side... just flip the image in your head. Step Three: Moving and Lunges Lunge, walk stairs facing sideways, 2 at a time, (have a logistics engineering manager downstairs of you!), take a walk outside with one foot on the curb and the other on the street, sit on a ball and hula- anything that's upright and putting your pelvis in open, asymmetrical positions. Spend at least 30 minutes doing this one as well to give your baby a chance to move down. If you are lunging or stair or curb walking, you should lunge/walk/go up stairs in the direction that feels better to you. The raphael with the lunge is that the toes of the higher leg and mom's belly button should be at right angles. Do not lunge over your knee, that closes the pelvis. Reena El: Circuit Creator - www.[facility].HealthLinkNow Tony Walker, CD, BDT (GURINDER), LCCE, FACCE: Supporting Content - www.tonyFederated Samplejonathan.HealthLinkNow Maximo Gracia: Photography - www.[employer].HealthLinkNow Terri Guerra CD/CDT (RAMU): Print and Manufacturing Inspector - www.[employer] Circuit Masterminds [employer] www.[employer].HealthLinkNow SEQUENTIAL SCREENINGS The [facility] offers sequential screenings for women who are interested in screenings for chromosomal abnormalities and certain defects during a . The sequential screen combines ultrasound and blood tests to determine the risk of chromosomal abnormalities, including Down's Syndrome (Trisomy 21) and Trisomy 18, as well as open neural tube defects including spina bifida. Ultrasound examination is performed between 11 weeks and 13 weeks gestational age. Blood tests are drawn after the ultrasound and again later in the between 15 and 21 weeks gestational age. Please let your physician know if you are interested in this testing. It will require an appointment with our industrial technician. This is not an ultrasound performed by a physician in our office during a routine visit. SIGNS AND SYMPTOMS OF LABOR 1. Contractions every 10 minutes or more often 2. Clear, pink, or brownish fluid (water) leaking from vagina 3. Feeling that baby is pushing down, pressure 4. Low, dull backache 5. Cramps that feel like a period 6. Cramps with or without diarrhea If you notice any of the above symptoms, contact our office at [phone] and ask to speak with a nurse. After hours, you can call doctors registry at [phone] OR call [facility] at [phone] and ask to have the doctor senior telecommunications engineer paged. If you consider this an emergency, dial 91-8 or go to your nearest emergency department. NEED HELP? Are you dealing with a violent or abusive relationship? Are you a victim of rape or sexual assult? Call [facility] ([place]) 24 hour Crisis Hotline: 367.679.9188 or 160-320-7030. MANUAL Your Guide to a Healthy manual is now on-line. Visit [email or web address] ncyGuide to download your free copy documented in this encounter [facility] 03-12-2024 Telephone encounter Note 37w6d Pt calls stating she has not felt well all day. Has body aches. Denies fever, headache, leaking of fluid, RUQ pain. Pt does report blurred vision/spotty vision. Checked BP and 133/86. Appt scheduled with CP today. Alissa Pereyra RN [facility] 03-12-2024 Miscellaneous Notes 37w6d Pt calls stating she has not felt well all day. Has body aches. Denies fever, headache, leaking of fluid, RUQ pain. Pt does report blurred vision/spotty vision. Checked BP and 133/86. Appt scheduled with CP today. Alissa Pereyra RN documented in this encounter [facility] 03-11-2024 Progress note Formatting of t his note might be different from the original. S: Kimani Owens is a 23 year old female who presents at 03/27/2024, by Last Menstrual Period for a routine visit. Denies headache, visual changes, chest pain, shortness of breath, vaginal bleeding, leakage of fluid, or dysuria. Feeling well, no complaints. Good movement. Intermittent contractions Having some spotting. O: See flow sheet Gen: No apparent distress Abd: Gravid, nontender ASSESSMENT/PLAN: 1. Encounter for supervision of other normal in third trimester - ICD9: V22.1, ICD10: Z34.83 (primary diagnosis) - URINE OB DIP B/O 2. Circumvallate placenta during in third trimester, antepartum - ICD9: 656.73, ICD10: O43.113 3. 37 weeks gestation of - ICD9: V22.2, ICD10: Z3A.37 Palmira Palmer MD [facility] 03-11-2024 Miscellaneous Notes S: Kimani Owens is a 23 year old female who presents at 03/27/2024, by Last Menstrual Period for a routine visit. Denies headache, visual changes, chest pain, shortness of breath, vaginal bleeding, leakage of fluid, or dysuria. Feeling well, no complaints. Good movement. Intermittent contractions Having some spotting. O: See flow sheet Gen: No apparent distress Abd: Gravid, nontender ASSESSMENT/PLAN: 1. Encounter for supervision of other normal in third trimester - ICD9: V22.1, ICD10: Z34.83 (primary diagnosis) - URINE OB DIP B/O 2. Circumvallate placenta during in third trimester, antepartum - ICD9: 656.73, ICD10: O43.113 3. 37 weeks gestation of - ICD9: V22.2, ICD10: Z3A.37 Palmira Palmer MD documented in this encounter [facility] 03-11-2024 Instructions Vilma Bennett MA - 03/11/2024 10:15 AM EST SEQUENTIAL SCREENINGS The [facility] offers sequential screenings for women who are interested in screenings for chromosomal abnormalities and certain defects during a . The sequential screen combines ultrasound and blood tests to determine the risk of chromosomal abnormalities, including Down's Syndrome (Trisomy 21) and Trisomy 18, as well as open neural tube defects including spina bifida. Ultrasound examination is performed between 11 weeks and 13 weeks gestational age. Blood tests are drawn after the ultrasound and again later in the between 15 and 21 weeks gestational age. Please let your physician know if you are interested in this testing. It will require an appointment with our industrial technician. This is not an ultrasound performed by a physician in our office during a routine visit. SIGNS AND SYMPTOMS OF LABOR 1. Contractions every 10 minutes or more often 2. Clear, pink, or brownish fluid (water) leaking from vagina 3. Feeling that baby is pushing down, pressure 4. Low, dull backache 5. Cramps that feel like a period 6. Cramps with or without diarrhea If you notice any of the above symptoms, contact our office at [phone] and ask to speak with a nurse. After hours, you can call doctors registry at [phone] OR call [facility] at [phone] and ask to have the doctor senior telecommunications engineer paged. If you consider this an emergency, dial [phone]- or go to your nearest emergency department. NEED HELP? Are you dealing with a violent or abusive relationship? Are you a victim of rape or sexual assult? Call [facility] ([facility] 24 hour Crisis Hotline: 793.963.5307 or 242-362-5819. MANUAL Your Guide to a Healthy manual is now on-line. Visit [email or web address] ncyGuide to download your free copy documented in this encounter [facility] 03-10-2024 Telephone encounter Note Patient notified of directions [facility] 03-10-2024 Miscellaneous Notes Patient notified of directions Potential side effects but as long as no itching, throat swelling or signs of severe allergic reaction to monitor. Increase hydration, rest. If vaginal bleeding, fluid leakage or signs of labor to come in. If no improvement by tomorrow recommend evaluation or if worsening. Chata Braun APRN.CNM 37w4d Patient called in to the office. Notified of +yeast. States she is having severe side effects of the medication SW prescribed yesterday, MONUROL 3 g pack x1 dose for UTI. Patient has had more than a handful of times of diarrhea, rib pain which is sharp, nausea, and pelvic pain that is achy. Overall feeling miserable. She took an anit-diarrhea medication this morning which hasn't helped. Encouraged pushing fluids. Patient asking if these are side effects of this medication. Palmira Del Angel RN Please notify patient that she does have a yeast infection. I would like her to use Monistat 7 (or generic) 1 of a applicator full every night for 7 nights. If symptoms do not improve please ryland the office. Ingrid Matos APRN.CNP documented in this encounter [facility] 03-10-2024 Telephone encounter Note Potential side effects but as long as no itching, throat swelling or signs of severe allergic reaction to monitor. Increase hydration, rest. If vaginal bleeding, fluid leakage or signs of labor to come in. If no improvement by tomorrow recommend evaluation or if worsening. Chata Braun APRN.CNM [facility] Work Phone: 03-10-2024 Telephone encounter Note 37w4d Patient called in to the office. Notified of +yeast. States she is having severe side effects of the medication SW prescribed yesterday, MONUROL 3 g pack x1 dose for UTI. Patient has had more than a handful of times of diarrhea, rib pain which is sharp, nausea, and pelvic pain that is achy. Overall feeling miserable. She took an anit-diarrhea medication this morning which hasn't helped. Encouraged pushing fluids. Patient asking if these are side effects of this medication. Palmira Del Angel, RN [facility] 03-10-2024 Telephone encounter Note Please notify patient that she does have a yeast infection. I would like her to use Monistat 7 (or generic) 1 of a applicator full every night for 7 nights. If symptoms do not improve please ryland the office. Ingrid Matos APRN.CNP [facility] Work Phone: 03-09-2024 Progress note Formatting of t his note might be different from the original. SW- add on visit for urinary symptoms. Having dysuria and pelvic pain with a urine odor. Having green mucous discharge. Having vaginal itching. No vaginal burning. No vb, lof. Denies fevers, chills, N/V. Good FM. Completed course of antibiotic for UTI 1 week ago, and symptoms improved initially. PE: Gen- NAD, well appearing Abd- Soft, gravid, NT See flowsheet A/p 37 wk gestation add on for dysuria - Given urine dip and her symptoms will start antibiotics. Thrombocytopenia with Keflex in past. Has urologist that she follows with outside of . Send urine cx. Push fluids - She reports no risk of STD's. Check BV, yeast Keep scheduled follow up Jan Cantu DO [facility] 03-09-2024 Miscellaneous Notes SW- add on visit for urinary symptoms. Having dysuria and pelvic pain with a urine odor. Having green mucous discharge. Having vaginal itching. No vaginal burning. No vb, lof. Denies fevers, chills, N/V. Good FM. Completed course of antibiotic for UTI 1 week ago, and symptoms improved initially. PE: Gen- NAD, well appearing Abd- Soft, gravid, NT See flowsheet A/p 37 wk gestation add on for dysuria - Given urine dip and her symptoms will start antibiotics. Thrombocytopenia with Keflex in past. Has urologist that she follows with outside of . Send urine cx. Push fluids - She reports no risk of STD's. Check BV, yeast Keep scheduled follow up Jan Cantu DO documented in this encounter [facility] 03-09-2024 Instructions Allison Rosenberg MA - 03/09/2024 1:34 PM EST SEQUENTIAL SCREENINGS The [facility] offers sequential screenings for women who are interested in screenings for chromosomal abnormalities and certain defects during a . The sequential screen combines ultrasound and blood tests to determine the risk of chromosomal abnormalities, including Down's Syndrome (Trisomy 21) and Trisomy 18, as well as open neural tube defects including spina bifida. Ultrasound examination is performed between 11 weeks and 13 weeks gestational age. Blood tests are drawn after the ultrasound and again later in the between 15 and 21 weeks gestational age. Please let your physician know if you are interested in this testing. It will require an appointment with our industrial technician. This is not an ultrasound performed by a physician in our office during a routine visit. SIGNS AND SYMPTOMS OF LABOR 1. Contractions every 10 minutes or more often 2. Clear, pink, or brownish fluid (water) leaking from vagina 3. Feeling that baby is pushing down, pressure 4. Low, dull backache 5. Cramps that feel like a period 6. Cramps with or without diarrhea If you notice any of the above symptoms, contact our office at [phone] and ask to speak with a nurse. After hours, you can call doctors registry at [phone] OR call [facility] at [phone] and ask to have the doctor senior telecommunications engineer paged. If you consider this an emergency, dial [phone] or go to your nearest emergency department. NEED HELP? Are you dealing with a violent or abusive relationship? Are you a victim of rape or sexual assult? Call [facility] ([place]) 24 hour Crisis Hotline: 649.764.6562 or 859-375-4758. MANUAL Your Guide to a Healthy manual is now on-line. Visit [email or web address] ncyGuide to download your free copy documented in this encounter [facility] 03-09-2024 Telephone encounter Note Called patient. Scheduled for a visit today. Palmira Del Angel RN [facility] 03-09-2024 Miscellaneous Notes Called patient. Scheduled for a visit today. Palmira Del Angel RN documented in this encounter [facility] 03-03-2024 Progress note Formatting of t his note might be different from the original. KJ - Patient presents with decreased FM. Once on th NST she reported good FM. VB No. LOF No. CTXS No. Other c/o: No. Medication list reviewed. Physical Exam See Flow Sheet Gen: no accute distress, well appearing A/P 36w4d Estimated Date of Delivery: 03/27/24 Mild polyhydramnios - repeat US in 2 weeks per MFM PTL precautions reviewed, Kick counts reviewed. James Hargrove MD [facility] 03-03-2024 Miscellaneous Notes KJ - Patient presents with decreased FM. Once on th NST she reported good FM. VB No. LOF No. CTXS No. Other c/o: No. Medication list reviewed. Physical Exam See Flow Sheet Gen: no accute distress, well appearing A/P 36w4d Estimated Date of Delivery: 03/27/24 Mild polyhydramnios - repeat US in 2 weeks per MFM PTL precautions reviewed, Kick counts reviewed. James Hargrove MD documented in this encounter [facility] 03-03-2024 Note HNO ID: [id number] Author: JAMES HARGROVE MD Service: ? Author Type: Physician Type: Progress Notes Filed: 03/03/2024 11:50 Note Text: NST SUMMARY PROVIDER ASSESSMENT AND INTERPRETATION Kimani Owens is a 23 year old female, , who is at 36w4d with an CHRISTIE of 03/27/2024, by Last Menstrual Period dating method. Indications for NST: Decreased Movement Baseline: 140 Variability: Moderate Accelerations: Present 15 X 15 Decelerations: Variable Contractions: TOCO: None Interpretation: Reactive SIGNATURE: James Hargrove MD [facility] 03-03-2024 History of Present illness Narrative NST SUMMARY PROVIDER ASSESSMENT AND INTERPRETATION Kimani Owens is a 23 year old female, , who is at 36w4d with an CHRISTIE of 03/27/2024, by Last Menstrual Period dating method. Indications for NST: Decreased Movement Baseline: 140 Variability: Moderate Accelerations: Present 15 X 15 Decelerations: Variable Contractions: TOCO: None Interpretation: Reactive SIGNATURE: James Hargrove MD documented in this encounter [facility] 03-03-2024 Instructions Allison RosenbergBEAN - 03/03/2024 10:37 AM EDT SEQUENTIAL SCREENINGS The [facility] offers sequential screenings for women who are interested in screenings for chromosomal abnormalities and certain defects during a . The sequential screen combines ultrasound and blood tests to determine the risk of chromosomal abnormalities, including Down's Syndrome (Trisomy 21) and Trisomy 18, as well as open neural tube defects including spina bifida. Ultrasound examination is performed between 11 weeks and 13 weeks gestational age. Blood tests are drawn after the ultrasound and again later in the between 15 and 21 weeks gestational age. Please let your physician know if you are interested in this testing. It will require an appointment with our industrial technician. This is not an ultrasound performed by a physician in our office during a routine visit. SIGNS AND SYMPTOMS OF LABOR 1. Contractions every 10 minutes or more often 2. Clear, pink, or brownish fluid (water) leaking from vagina 3. Feeling that baby is pushing down, pressure 4. Low, dull backache 5. Cramps that feel like a period 6. Cramps with or without diarrhea If you notice any of the above symptoms, contact our office at [phone] and ask to speak with a nurse. After hours, you can call doctors registry at [phone] OR call [facility] at [phone] and ask to have the doctor senior telecommunications engineer paged. If you consider this an emergency, dial 9--1 or go to your nearest emergency department. NEED HELP? Are you dealing with a violent or abusive relationship? Are you a victim of rape or sexual assult? Call [facility] ([place]) 24 hour Crisis Hotline: 888.369.4263 or 809-779-3532. MANUAL Your Guide to a Healthy manual is now on-line. Visit [email or web address] to download your free copy documented in this encounter [facility] 02-27-2024 Progress note Formatting of t his note might be different from the original. S: Kimani Owens is a 23 year old female who presents at 35.6 weeks gestation for a routine visit. Positive movement. Denies headache, visual changes, chest pain, shortness of breath, vaginal bleeding, leakage of fluid, or dysuria. Feeling well, no complaints. Most recent growth US was last week: The EFW is 2629 g, at the 61%. AC is at the 76%. Patient seen in L&D on 02/24/24 for UTI symptoms. O: See flow sheet Gen: No apparent distress TVUS - confirms vertex Abd: Gravid, non tender ASSESSMENT/PLAN: 1. Encounter for supervision of other normal in third trimester - ICD9: V22.1, ICD10: Z34.83 (primary diagnosis) 2. Circumvallate placenta during in third trimester, antepartum - ICD9: 656.73, ICD10: O43.113 3. Heartburn during in third trimester - ICD9: 646.83, 787.1, ICD10: O26.893, R12 4. 35 weeks gestation of - ICD9: V22.2, ICD10: Z3A.35 - GBS collected and sent - Continue Macrobid 100 mg PO BID- Urine culture was positive and bacteria susceptible - Continue Prilosec PO 1) PTL precautions reviewed and when to call 2) RTO 1 week Kaya Coleman APRN.CNM [facility] 02-27-2024 Miscellaneous Notes S: Kimani Owens is a 23 year old female who presents at 35.6 weeks gestation for a routine visit. Positive movement. Denies headache, visual changes, chest pain, shortness of breath, vaginal bleeding, leakage of fluid, or dysuria. Feeling well, no complaints. Most recent growth US was last week: The EFW is 2629 g, at the 61%. AC is at the 76%. Patient seen in L&D on 02/24/24 for UTI symptoms. O: See flow sheet Gen: No apparent distress TVUS - confirms vertex Abd: Gravid, non tender ASSESSMENT/PLAN: 1. Encounter for supervision of other normal in third trimester - ICD9: V22.1, ICD10: Z34.83 (primary diagnosis) 2. Circumvallate placenta during in third trimester, antepartum - ICD9: 656.73, ICD10: O43.113 3. Heartburn during in third trimester - ICD9: 646.83, 787.1, ICD10: O26.893, R12 4. 35 weeks gestation of - ICD9: V22.2, ICD10: Z3A.35 - GBS collected and sent - Continue Macrobid 100 mg PO BID- Urine culture was positive and bacteria susceptible - Continue Prilosec PO 1) PTL precautions reviewed and when to call 2) RTO 1 week Kaya Coleman APRN.CNM documented in this encounter [facility] 02-27-2024 Instructions Anita Ley MA - 02/27/2024 2:22 PM EDT SEQUENTIAL SCREENINGS The [facility] offers sequential screenings for women who are interested in screenings for chromosomal abnormalities and certain defects during a . The sequential screen combines ultrasound and blood tests to determine the risk of chromosomal abnormalities, including Down's Syndrome (Trisomy 21) and Trisomy 18, as well as open neural tube defects including spina bifida. Ultrasound examination is performed between 11 weeks and 13 weeks gestational age. Blood tests are drawn after the ultrasound and again later in the between 15 and 21 weeks gestational age. Please let your physician know if you are interested in this testing. It will require an appointment with our industrial technician. This is not an ultrasound performed by a physician in our office during a routine visit. SIGNS AND SYMPTOMS OF LABOR 1. Contractions every 10 minutes or more often 2. Clear, pink, or brownish fluid (water) leaking from vagina 3. Feeling that baby is pushing down, pressure 4. Low, dull backache 5. Cramps that feel like a period 6. Cramps with or without diarrhea If you notice any of the above symptoms, contact our office at [phone] and ask to speak with a nurse. After hours, you can call doctors registry at [phone] OR call [facility] at [phone] and ask to have the doctor senior telecommunications engineer paged. If you consider this an emergency, dial 9--1 or go to your nearest emergency department. NEED HELP? Are you dealing with a violent or abusive relationship? Are you a victim of rape or sexual assult? Call [facility] ([place]) 24 hour Crisis Hotline: 451.464.1874 or 073-992-4962. MANUAL Your Guide to a Healthy manual is now on-line. Visit [email or web address] to download your free copy documented in this encounter [facility] 02-24-2024 Telephone encounter Note Pt currently on L&D and aware. Alissa Pereyra RN [facility] 02-24-2024 Miscellaneous Notes Pt currently on L&D and aware. Alissa Pereyra, RN Seen in L&D, ua positive for leuk and nitrites. Will send prescription for Macrobid 100mg PO BID x 7 days. Patient notified. Awaiting urine culture. Chata Braun APRN.CNM documented in this encounter [facility] 02-24-2024 Telephone encounter Note Seen in L&D, ua positive for leuk and nitrites. Will send prescription for Macrobid 100mg PO BID x 7 days. Patient notified. Awaiting urine culture. Chata Braun APRN.CNM [facility] 02-19-2024 Note Indication Evaluation of growth follow up circumvallate placenta from outside scan Impression REMOTE READ - Single, live, intrauterine . - The biometry is consistent with the assigned gestational dating. - The EFW is 2629 g, at the 61%. AC is at the 76%. - Amniotic fluid volume is mild polyhydramnios with an MVP of 7.4 cm and JESSICA of 25.1 cm. - The placenta is anterior, fundal. - No malformations visualized on a limited survey as detailed below. Recommendations Growth in four weeks Maternal Assessment Height 5 cm Height (ft) 0 ft Height (in) 2 in Physical Exam Initial weight (lb) 115 lb Initial BMI 23.00 kg/m Maternal assessment other: 4 Para 2 Method Transabdominal ultrasound examination. View: Suboptimal view: limited by late gestational age [place] . Number of fetuses: 1 Dating LMP on: 06/21/2023 GA by LMP 34 w + 5 d CHRISTIE by LMP: 03/27/2024 GA by prior assessment 34 w + 5 d CHRISTIE by prior assessment: 03/27/2024 Ultrasound examination on: 02/19/2024 GA by U/S based upon: AC, BPD, Femur, HC GA by U/S 36 w + 2 d CHRISTIE by U/S: 03/16/2024 Assigned: based on stated CHRISTIE, selected on 02/19/2024 Assigned GA 34 w + 5 d Assigned CHRISTIE: 03/27/2024 General Evaluation Cardiac activity present. FHR 148 bpm. movements: present. Presentation: cephalic Placenta: Placental site: anterior, fundal. circumvallate placenta from outside scan Umbilical cord: Cord vessels: 3 vessel cord Amniotic fluid: Amount of AF: mild polyhydramnios. MVP 7.4 cm. JESSICA 25.1 cm. Q1 6.8 cm, Q2 7.4 cm, Q3 6.3 cm, Q4 4.7 cm Growth Overview Exam date GA BPD (mm) HC (mm) AC (mm) FL (mm) HL (mm) EFW (g) 12/05/2023 23w 6d 60.3 70% 224.6 64% 205.7 80% 40.7 38% 39.6 48% 688 65% 02/19/2024 34w 5d 93.2 >99% 338.9 93% 315.1 76% 63.5 17% 2629 61% Biometry Standard BPD 93.2 mm 37w 6d >99% Hadlock OFD 119.3 mm -/- 90% Nicolaides HC 338.9 mm 39w 0d 93% Cecilia AC 315.1 mm 35w 3d 76% Hadlock Femur 63.5 mm 32w 4d 17% Cecilia EFW 2,629 g 35w 1d 61% Hadlock EFW (lb) 5 lb EFW (oz) 13 oz EFW by: Hadlock (HC-AC-FL) Extended Statistical Consultant 5.4 mm Extremities / Bony Struc FL / HC 0.19 Other Structures FHR 148 bpm Anatomy Lateral ventricles: normal Cavum septi pellucidi: normal Cerebellum: normal Cisterna magna: normal 4-chamber view: normal RVOT view: normal LVOT view: normal 3-vessel view: normal Heart / Thorax Situs: situs solitus (normal) Diaphragm: normal Stomach: normal Kidneys: normal Bladder: normal Performed By: Lakesha Tillman RDMS, RVT Read By: Mraley Elizalde M.D. [facility] 02-19-2024 Note Addended by: MAXIMO GOETZ on: 02/19/2024 02:46 PM Modules accepted: Orders [facility] 02-19-2024 Miscellaneous Notes Addended by: MAXIMO GOETZ on: 02/19/2024 02:46 PM Modules accepted: Orders EH - S: Kimani is a 23 year old female who presents at 34w5d for a routine visit. Feeling movement. Denies headache, visual changes, chest pain, shortness of breath, vaginal bleeding, leakage of fluid, or dysuria. Continues to struggle with heartburn. O: See flow sheet Gen: No apparent distress Abd: Gravid, nontender, S>D ASSESSMENT/PLAN: 1. Encounter for supervision of other normal in third trimester - ICD9: V22.1, ICD10: Z34.83 (primary diagnosis) 2. 34 weeks gestation of - ICD9: V22.2, ICD10: Z3A.34 - GBS next visit at 36 weeks 3. Circumvallate placenta during in third trimester, antepartum - ICD9: 656.73, ICD10: O43.113 - Growth today, report pending 4.Heartburn during in third trimester - ICD9: 646.83, 787.1, ICD10: O26.893, R12 - No relief with Protonix - Rx for Prilosec BID sent to trial PTL precautions and kick counts reviewed. RTO in 2 weeks or sooner as needed. Maximo Goetz APRN.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 documented in this encounter [facility] 02-19-2024 Progress note Formatting of t his note might be different from the original. EH - S: Kimani is a 23 year old female who presents at 34w5d for a routine visit. Feeling movement. Denies headache, visual changes, chest pain, shortness of breath, vaginal bleeding, leakage of fluid, or dysuria. Continues to struggle with heartburn. O: See flow sheet Gen: No apparent distress Abd: Gravid, nontender, S>D ASSESSMENT/PLAN: 1. Encounter for supervision of other normal in third trimester - ICD9: V22.1, ICD10: Z34.83 (primary diagnosis) 2. 34 weeks gestation of - ICD9: V22.2, ICD10: Z3A.34 - GBS next visit at 36 weeks 3. Circumvallate placenta during in third trimester, antepartum - ICD9: 656.73, ICD10: O43.113 - Growth today, report pending 4.Heartburn during in third trimester - ICD9: 646.83, 787.1, ICD10: O26.893, R12 - No relief with Protonix - Rx for Prilosec BID sent to trial PTL precautions and kick counts reviewed. RTO in 2 weeks or sooner as needed. Maximo Goetz APRN.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 [facility] 02-19-2024 Instructions Yelena Li MA - 02/19/2024 2:05 PM EDT SEQUENTIAL SCREENINGS The [facility] offers sequential screenings for women who are interested in screenings for chromosomal abnormalities and certain defects during a . The sequential screen combines ultrasound and blood tests to determine the risk of chromosomal abnormalities, including Down's Syndrome (Trisomy 21) and Trisomy 18, as well as open neural tube defects including spina bifida. Ultrasound examination is performed between 11 weeks and 13 weeks gestational age. Blood tests are drawn after the ultrasound and again later in the between 15 and 21 weeks gestational age. Please let your physician know if you are interested in this testing. It will require an appointment with our industrial technician. This is not an ultrasound performed by a physician in our office during a routine visit. SIGNS AND SYMPTOMS OF LABOR 1. Contractions every 10 minutes or more often 2. Clear, pink, or brownish fluid (water) leaking from vagina 3. Feeling that baby is pushing down, pressure 4. Low, dull backache 5. Cramps that feel like a period 6. Cramps with or without diarrhea If you notice any of the above symptoms, contact our office at [phone] and ask to speak with a nurse. After hours, you can call doctors registry at [phone] OR call [facility] at [phone] and ask to have the doctor senior telecommunications engineer paged. If you consider this an emergency, dial 9-6-4 or go to your nearest emergency department. NEED HELP? Are you dealing with a violent or abusive relationship? Are you a victim of rape or sexual assult? Call [facility] ([facility] 24 hour Crisis Hotline: 857.888.3236 or 628-015-6433. MANUAL Your Guide to a Healthy manual is now on-line. Visit [email or web address] to download your free copy documented in this encounter [facility] 02-07-2024 Telephone encounter Note 3rd risk assessment form submitted 02/07/24 Kusum Anderson RN [facility] 02-07-2024 Miscellaneous Notes 3rd risk assessment form submitted 02/07/24 Kusum Anderson RN documented in this encounter [facility] 02-05-2024 Progress note Formatting of t his note might be different from the original. S: Kimani Owens is a 23 year old female who presents at 32 weeks gestation for a routine visit. Continues to have heart burn. Taking Protonix but only as needed. Positive movement. Denies headache, visual changes, chest pain, shortness of breath, vaginal bleeding, leakage of fluid, or dysuria. Feeling well, no complaints. O: See flow sheet Gen: No apparent distress Abd: Gravid, nontender ASSESSMENT/PLAN: 1. 32 weeks gestation of - ICD9: V22.2, ICD10: Z3A.32 (primary diagnosis) 2. Circumvallate placenta during in third trimester, antepartum - ICD9: 656.73, ICD10: O43.113 3. Encounter for supervision of other normal in third trimester - ICD9: V22.1, ICD10: Z34.83 4. Heartburn in - Protonix 40 mg PO daily- encouraged daily use - Follow up US next visit for circumvallate placenta - PTL precautions reviewed - RTO 2 weeks Kaya Coleman APRN.CNM [facility] 02-05-2024 Miscellaneous Notes S: Kimani Owens is a 23 year old female who presents at 32 weeks gestation for a routine visit. Continues to have heart burn. Taking Protonix but only as needed. Positive movement. Denies headache, visual changes, chest pain, shortness of breath, vaginal bleeding, leakage of fluid, or dysuria. Feeling well, no complaints. O: See flow sheet Gen: No apparent distress Abd: Gravid, nontender ASSESSMENT/PLAN: 1. 32 weeks gestation of - ICD9: V22.2, ICD10: Z3A.32 (primary diagnosis) 2. Circumvallate placenta during in third trimester, antepartum - ICD9: 656.73, ICD10: O43.113 3. Encounter for supervision of other normal in third trimester - ICD9: V22.1, ICD10: Z34.83 4. Heartburn in - Protonix 40 mg PO daily- encouraged daily use - Follow up US next visit for circumvallate placenta - PTL precautions reviewed - RTO 2 weeks Kaya Coleman APRN.CNM documented in this encounter [facility] 02-05-2024 Instructions Yelena Li MA - 02/05/2024 10:21 AM EDT SEQUENTIAL SCREENINGS The [facility] offers sequential screenings for women who are interested in screenings for chromosomal abnormalities and certain defects during a . The sequential screen combines ultrasound and blood tests to determine the risk of chromosomal abnormalities, including Down's Syndrome (Trisomy 21) and Trisomy 18, as well as open neural tube defects including spina bifida. Ultrasound examination is performed between 11 weeks and 13 weeks gestational age. Blood tests are drawn after the ultrasound and again later in the between 15 and 21 weeks gestational age. Please let your physician know if you are interested in this testing. It will require an appointment with our industrial technician. This is not an ultrasound performed by a physician in our office during a routine visit. SIGNS AND SYMPTOMS OF LABOR 1. Contractions every 10 minutes or more often 2. Clear, pink, or brownish fluid (water) leaking from vagina 3. Feeling that baby is pushing down, pressure 4. Low, dull backache 5. Cramps that feel like a period 6. Cramps with or without diarrhea If you notice any of the above symptoms, contact our office at [phone] and ask to speak with a nurse. After hours, you can call doctors registry at [phone] OR call [facility] at [phone] and ask to have the doctor senior telecommunications engineer paged. If you consider this an emergency, dial 01-04-0 or go to your nearest emergency department. NEED HELP? Are you dealing with a violent or abusive relationship? Are you a victim of rape or sexual assult? Call [facility] ([place]) 24 hour Crisis Hotline: 776.970.4713 or 138-195-6260. MANUAL Your Guide to a Healthy manual is now on-line. Visit [email or web address] to download your free copy documented in this encounter [facility] 02-04-2024 Telephone encounter Note Patient notified. Yarelis New RN [facility] 02-04-2024 Miscellaneous Notes Patient notified. Yarelis New RN Push fluids, warm bath. [place] diet today. If > 10 contractions in an hour that are not associated with episodes of diarrhea or gross leaking of fluid then to L&D. Muriel Estrada MD Ob patient is 32w4d called c/o diarrhea that began this morning. 5 episodes of diarrhea so far today. Took immodium this morning and has not had any improvement. Patient is c/o sharp pains in lower back and cramping in lower abd and that feel like contractions that have been occurring about every 10 to 15 min since about 1 pm. Patient has also noticed more mucus like vaginal discharge today. Baby is active. Denies LOF, no fever. documented in this encounter [facility] 02-04-2024 Telephone encounter Note Push fluids, warm bath. [place] diet today. If > 10 contractions in an hour that are not associated with episodes of diarrhea or gross leaking of fluid then to L&D. Muriel Estrada MD [facility] Work Phone: 02-04-2024 Telephone encounter Note Ob patient is 32w4d called c/o diarrhea that began this morning. 5 episodes of diarrhea so far today. Took immodium this morning and has not had any improvement. Patient is c/o sharp pains in lower back and cramping in lower abd and that feel like contractions that have been occurring about every 10 to 15 min since about 1 pm. Patient has also noticed more mucus like vaginal discharge today. Baby is active. Denies LOF, no fever. [facility] 01-22-2024 Progress note Formatting of t his note might be different from the original. S: Kimani Owens is a 23 year old female who presents at 30.5 weeks gestation for routine visit. Denies headache, visual changes, chest pain, shortness of breath, vaginal bleeding, leakage of fluid, or dysuria. Seen last week in ED- started on antibiotics for UTI. O: See flow sheet Gen: No apparent distress Abd: Gravid, nontender ASSESSMENT/PLAN: 1. Circumvallate placenta during in third trimester, antepartum - ICD9: 656.73, ICD10: O43.113 (primary diagnosis) 2. 30 weeks gestation of - ICD9: V22.2, ICD10: Z3A.30 3. Encounter for supervision of other normal in third trimester - ICD9: V22.1, ICD10: Z34.83 4. Need for vaccination - ICD9: V05.9, ICD10: Z23 - OBSTETRIC ULTRASOUND WHI- 34-36 weeks for circumvallate placenta - TDAP today - PTL precautions reviewed and when to call office - Reviewed s/s of yeast d/t currently taking antibiotics - RTO 2 weeks Kaya Coleman APRN.CNM [facility] 01-22-2024 Miscellaneous Notes S: Kimani Owens is a 23 year old female who presents at 30.5 weeks gestation for routine visit. Denies headache, visual changes, chest pain, shortness of breath, vaginal bleeding, leakage of fluid, or dysuria. Seen last week in ED- started on antibiotics for UTI. O: See flow sheet Gen: No apparent distress Abd: Gravid, nontender ASSESSMENT/PLAN: 1. Circumvallate placenta during in third trimester, antepartum - ICD9: 656.73, ICD10: O43.113 (primary diagnosis) 2. 30 weeks gestation of - ICD9: V22.2, ICD10: Z3A.30 3. Encounter for supervision of other normal in third trimester - ICD9: V22.1, ICD10: Z34.83 4. Need for vaccination - ICD9: V05.9, ICD10: Z23 - OBSTETRIC ULTRASOUND WHI- 34-36 weeks for circumvallate placenta - TDAP today - PTL precautions reviewed and when to call office - Reviewed s/s of yeast d/t currently taking antibiotics - RTO 2 weeks Kaya Coleman APRN.CNM documented in this encounter [facility] 01-17-2024 Telephone encounter Note 30w0d Patient seen at Urgent Care on Saturday, 01/13. She was given an inhaler. Reports that the inhaler is not helping. It was irritating her throat and made it red. She is overall feeling worse. Chest congestion, tightness, and SOB. Unsure if she has a fever, but doesn't believe so. Advised if she is having SOB to go to ER for evaluation. Patient voiced agreement. ARNULFO Del Angel RN [facility] 01-17-2024 Miscellaneous Notes 30w0d Patient seen at Urgent Care on Saturday, 01/13. She was given an inhaler. Reports that the inhaler is not helping. It was irritating her throat and made it red. She is overall feeling worse. Chest congestion, tightness, and SOB. Unsure if she has a fever, but doesn't believe so. Advised if she is having SOB to go to ER for evaluation. Patient voiced agreement. ARNULFO Del Angel RN documented in this encounter [facility] 01-14-2024 Instructions Nia Chan APRN.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 - 01/14/2024 10:22 AM EDT [facility] PATIENT INFO BRONCHITIS OVERVIEW Bronchitis develops when there is swelling and irritation of the bronchi, the large tubes that carry air to the lungs. There are two types of bronchitis: acute (sudden onset) and chronic (long-standing). Acute bronchitis often occurs with a viral infection, such as the common cold, and is sometimes called a chest cold. The most common symptom of acute bronchitis is a nagging cough. Treatment of acute bronchitis usually involves treating the symptoms, such as sore throat and congestion. Antibiotics do not help to eliminate acute bronchitis caused by a virus. Antiviral agents are useful in some cases of acute bronchitis due to influenza, but there are antiviral agents for other forms of viral bronchitis. BRONCHITIS CAUSES Most cases of bronchitis are caused by a viral infection of the upper airways, such as the common cold or the flu. Less commonly, a bacterium such as pertussis (whooping cough) is the cause. BRONCHITIS SYMPTOMS The most common symptoms of acute bronchitis include: A persistent cough; this may last 10 to 20 days Some people cough up mucus, which may be clear, yellow, or green in color Fever is not common in people with acute bronchitis. However, having a fever can be a sign of another condition, such as the flu or pneumonia. Conditions with similar features -- There are other conditions that have symptoms similar to those of acute bronchitis. Chronic cough -- A persistent cough that lasts more than eight weeks is considered a chronic cough, which is discussed in detail elsewhere. Chronic bronchitis -- Chronic bronchitis is defined as a cough that occurs on most days of the month for at least three months of the year during two consecutive years. Pneumonia -- Signs of pneumonia include fever and a fast heart and breathing rate. Postnasal drip -- Postnasal drip occurs when secretions drain from the sinuses into the throat. This can cause the throat to feel irritated, which causes you to feel like you need to clear your throat frequently. Postnasal drip can be caused by the common cold, allergies, sinusitis, or environmental irritants. BRONCHITIS DIAGNOSIS Most people who have a persistent cough after an upper respiratory infection (cold) do not need to see a healthcare provider. Diagnostic testing, such as x-rays, cultures, and blood tests, are not usually needed for people with acute bronchitis. However, testing may be recommended if your diagnosis is not clear based upon your examination or if another condition, such as pneumonia, is suspected. When to seek help -- You should call your healthcare provider if you have any of the following: Fever (temperature greater than 100.4 F or 38 C) A cough that lasts longer than 10 days Chest pain with coughing, difficulty breathing, or coughing up blood A barking cough that makes it hard to speak, especially if it persists Cough accompanied by unexplained weight loss People who are older than 75 do not always have a fever or other concerning symptoms. If you are over 75 years and you have a persistent cough, you should call your clinician to determine if and when an office visit is recommended. BRONCHITIS TREATMENT Relief of symptoms -- There is no specific treatment for bronchitis, but there are a few treatments available for the common cold. A nonsteroidal antiinflammatory drug (ibuprofen, naproxen), aspirin, or acetaminophen (Tylenol ) can help to relieve the pain of a sore throat or headache. Pseudoephedrine is a decongestant that can improve nasal congestion. Most drugstores in the [place] carry pseudoephedrine behind the counter, so you must ask for it from the pharmacist (a prescription is not required). Other decongestants, such as phenylephrine, are not as effective as pseudoephedrine. Antihistamines such as diphenhydramine (Benadryl ) may also help, but can cause side effects such as drowsiness and drying of the eyes, nose, and mouth. Heated, humidified, air can improve symptoms of nasal congestion and runny nose, and has few to no side effects. Cough suppressants such as dextromethorphan may be helpful. Antibiotics -- Antibiotics are NOT helpful for most people with bronchitis since the illness is typically caused by a virus. Antibiotics treat bacterial, not viral infections. Antibiotics may be helpful for some patients with other chronic diseases. Many people request antibiotics in the hopes that it will get rid of the cough, and some people even think that antibiotics have helped on previous occasions. However, there is no benefit of antibiotics for most cases of bronchitis. PREVENTING THE SPREAD OF ILLNESS Hand washing is an essential and highly effective way to prevent the spread of infection. Wet your hands with water and plain soap and rub them together for 15 to 30 seconds. Pay special attention to the fingernails, between the fingers, and the wrists. Rinse your hands thoroughly, and dry with a single use towel. Alcohol-based hand rubs are a good alternative for disinfecting hands if a sink is not available. Spread the hand rub over the entire surface of your hands, fingers, and wrists until dry. You can use hand rubs repeatedly without irritating the skin or losing effectiveness. Hand rubs are available as a liquid or wipe in small, portable sizes that are easy to carry in a pocket or handbag. When a sink is available, you should wash visibly soiled hands with soap and water. Wash your hands before preparing food and eating, and after going to the bathroom, and after coughing, blowing the nose, or sneezing. While it is not always possible to limit contact with people who are ill, avoid touching your eyes, nose, or mouth after direct contact, when possible. In addition, use a tissue to cover your mouth when sneezing or coughing. Throw away used tissues promptly and then wash your hands. Sneezing/coughing into the sleeve of your clothing (at the inner elbow) is another way of containing sprays of saliva and secretions and does not contaminate your hands. Sneezing and coughing without covering your mouth can spread infection to anyone within 6 feet. documented in this encounter [facility] 01-14-2024 History of Present illness Narrative This note was created using [employer]. Subjective Kimani Owens is a 23 year old female. Patient presents with chest congestion, productive cough, nasal congestion for 4 days Tried benadryl with minimal relief Review of Systems Constitutional: Positive for chills. Negative for fever. HENT: Positive for congestion and ear pain. Negative for sore throat. Respiratory: Positive for cough. Negative for shortness of breath and wheezing. Gastrointestinal: Positive for diarrhea, nausea and vomiting. Negative for abdominal pain. Objective BP 121/78 Pulse 79 Temp 37.2 C (98.9 F) Resp 18 Wt 67 kg (147 lb 11.3 oz) LMP 06/21/2023 (Exact Date) SpO2 98% BMI 25.35 kg/m Physical Exam Constitutional: General: She is not in acute distress. Appearance: Normal appearance. She is not toxic-appearing. HENT: Head: Normocephalic and atraumatic. Right Ear: Tympanic membrane and ear canal normal. Left Ear: Tympanic membrane and ear canal normal. Nose: Congestion present. No rhinorrhea. Mouth/Throat: Pharynx: Posterior oropharyngeal erythema present. No oropharyngeal exudate. Eyes: Conjunctiva/sclera: Conjunctivae normal. Cardiovascular: Rate and Rhythm: Normal rate and regular rhythm. Heart sounds: Normal heart sounds. Pulmonary: Effort: Pulmonary effort is normal. No respiratory distress. Breath sounds: No stridor. Wheezing present. No rhonchi or rales. Chest: Chest wall: No tenderness. Lymphadenopathy: Cervical: No cervical adenopathy. Neurological: Mental Status: She is alert. Assessment and Plan ASSESSMENT/PLAN: 1. Bronchitis - ICD9: 490, ICD10: J40 (primary diagnosis) Provided patient education on viral etiology and symptomatic treatment Patient is 29 weeks Provided patient education on medications as prescribed If problem persists or gets worse, please follow up with pcp - ALBUTEROL SULFATE HFA 90 MCG/ACTUATION AEROSOL INHALER - CETIRIZINE 10 MG TABLET 2. Wheezing - ICD9: 786.07, ICD10: R06.2 See above plan Nia Chan APRN.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 documented in this encounter [facility] 01-07-2024 Telephone encounter Note 2nd risk assessment form submitted 01/07/24 Kusum Anderson RN [facility] 01-07-2024 Miscellaneous Notes 2nd risk assessment form submitted 01/07/24 Kusum Anderson RN documented in this encounter [facility] 01-03-2024 Progress note Formatting of t his note might be different from the original. S: Kimani Owens is a 23 year old female who presents at 28 weeks for a routine visit. Just completed 1 hour GCT. Feeling nauseous since drink. Positive movement. Denies current headache, visual changes, chest pain, shortness of breath, vaginal bleeding, leakage of fluid, or dysuria. Heartburn resolved since starting Protonix PO. O: See flow sheet Gen: No apparent distress Abd: Gravid, nontender ASSESSMENT/PLAN: 1. Heartburn during in second trimester - ICD9: 646.83, 787.1, ICD10: O26.892, R12 (primary diagnosis) 2. Acute nonintractable headache, unspecified headache type - ICD9: 784.0, ICD10: R51.9 3. Encounter for supervision of other normal in third trimester - ICD9: V22.1, ICD10: Z34.83 4. 28 weeks gestation of - ICD9: V22.2, ICD10: Z3A.28 - Continue Protonix 40 mg XR daily - 1 hour GCT, CBC, and RPR today - Rh positive - TDAP - next visit - LARC form reviewed and signed. Patient declines - Depression screen negative - Opioid screen negative - plan form discussed and given to patient. Patient may be interested in water /laboring in tub- unsure - PTL precautions and kick counts reviewed - RTO- 2 weeks or sooner if needed Kaya Coleman APRN.CNM [facility] 01-03-2024 Miscellaneous Notes S: Kimani Owens is a 23 year old female who presents at 28 weeks for a routine visit. Just completed 1 hour GCT. Feeling nauseous since drink. Positive movement. Denies current headache, visual changes, chest pain, shortness of breath, vaginal bleeding, leakage of fluid, or dysuria. Heartburn resolved since starting Protonix PO. O: See flow sheet Gen: No apparent distress Abd: Gravid, nontender ASSESSMENT/PLAN: 1. Heartburn during in second trimester - ICD9: 646.83, 787.1, ICD10: O26.892, R12 (primary diagnosis) 2. Acute nonintractable headache, unspecified headache type - ICD9: 784.0, ICD10: R51.9 3. Encounter for supervision of other normal in third trimester - ICD9: V22.1, ICD10: Z34.83 4. 28 weeks gestation of - ICD9: V22.2, ICD10: Z3A.28 - Continue Protonix 40 mg XR daily - 1 hour GCT, CBC, and RPR today - Rh positive - TDAP - next visit - LARC form reviewed and signed. Patient declines - Depression screen negative - Opioid screen negative - plan form discussed and given to patient. Patient may be interested in water /laboring in tub- unsure - PTL precautions and kick counts reviewed - RTO- 2 weeks or sooner if needed Kaya Coleman APRN.CNM documented in this encounter [facility] 01-03-2024 Instructions Anita Ley MA - 01/03/2024 9:54 AM EDT SEQUENTIAL SCREENINGS The [facility] offers sequential screenings for women who are interested in screenings for chromosomal abnormalities and certain defects during a . The sequential screen combines ultrasound and blood tests to determine the risk of chromosomal abnormalities, including Down's Syndrome (Trisomy 21) and Trisomy 18, as well as open neural tube defects including spina bifida. Ultrasound examination is performed between 11 weeks and 13 weeks gestational age. Blood tests are drawn after the ultrasound and again later in the between 15 and 21 weeks gestational age. Please let your physician know if you are interested in this testing. It will require an appointment with our industrial technician. This is not an ultrasound performed by a physician in our office during a routine visit. SIGNS AND SYMPTOMS OF LABOR 1. Contractions every 10 minutes or more often 2. Clear, pink, or brownish fluid (water) leaking from vagina 3. Feeling that baby is pushing down, pressure 4. Low, dull backache 5. Cramps that feel like a period 6. Cramps with or without diarrhea If you notice any of the above symptoms, contact our office at [phone] and ask to speak with a nurse. After hours, you can call doctors registry at [phone] OR call [facility] at [phone] and ask to have the doctor senior telecommunications engineer paged. If you consider this an emergency, dial 01-04-1 or go to your nearest emergency department. NEED HELP? Are you dealing with a violent or abusive relationship? Are you a victim of rape or sexual assult? Call [facility] ([place]) 24 hour Crisis Hotline: 528.284.6981 or 201-830-9233. MANUAL Your Guide to a Healthy manual is now on-line. Visit [email or web address] ncyGuide to download your free copy documented in this encounter [facility] 12-26-2023 Telephone encounter Note Patient notified. Aware urine culture results will take 48 hours and there may be a need to change the antibiotic. Palmira Del Angel RN [facility] 12-26-2023 Miscellaneous Notes Patient notified. Aware urine culture results will take 48 hours and there may be a need to change the antibiotic. Palmira Del Angel RN Kaya Coleman APRN.CNM [facility] Ob-Punch Operator Pool Please notify patient of positive UA for nitrates. Will send RX for Macrobid 100 mg PO BID x 7 days. Urine culture sent. Kaya Coleman APRN.CNM documented in this encounter [facility] 12-26-2023 Telephone encounter Note Kaya Coleman APRN.CNM [facility] Ob-Punch Operator Pool Please notify patient of positive UA for nitrates. Will send RX for Macrobid 100 mg PO BID x 7 days. Urine culture sent. Kaya Coleman APRN.CNM [facility] 12-26-2023 Note Addended by: KAYA COLEMAN on: 12/26/2023 12:27 PM Modules accepted: Orders [facility] 12-26-2023 Miscellaneous Notes Addended by: KAYA COLEMAN on: 12/26/2023 12:27 PM Modules accepted: Orders Addended by: ANITA LEY on: 12/26/2023 11:57 AM Modules accepted: Orders S: Kimani Owens is a 23 year old female who presents at 26.6 weeks gestation as an add on visit for headache. Patient reports history of migraines. Current headache started a couple of days ago. Denies any visual changes. Reports having issues with sleep due to acid reflux and headache may be due to lack of sleep. Headache on left side of face around eye area. Taking Tylenol occasionally and gets relief. Positive movement. O: See flow sheet Gen: No apparent distress Abd: Gravid, nontender ASSESSMENT/PLAN: 1. Acute nonintractable headache, unspecified headache type - ICD9: 784.0, ICD10: R51.9 (primary diagnosis) 2. Heartburn during in second trimester - ICD9: 646.83, 787.1, ICD10: O26.892, R12 3. 26 weeks gestation of - ICD9: V22.2, ICD10: Z3A.26 - UA-+ Nitrates- Start Macrobid 100 mg PO BID/ Urine culture sent - BP normal today at 100/64 - No swelling noted - No RUQ pain - No s/s of preeclampsia - Suspect tension headache/ headache due to lack of sleep - Continue Tylenol 100 mg PO PRN for pain - Zyrtec 10 mg PO daily - Start Protonix 40 mg PO XR daily - Reviewed preeclampsia precautions - RTO 2 weeks for CECILIA with GCT Kaya Coleman APRN.CNM documented in this encounter [facility] 12-26-2023 Note Addended by: ANITA LEY on: 12/26/2023 11:57 AM Modules accepted: Orders [facility] 12-26-2023 Progress note Formatting of t his note might be different from the original. S: Kimani Owens is a 23 year old female who presents at 26.6 weeks gestation as an add on visit for headache. Patient reports history of migraines. Current headache started a couple of days ago. Denies any visual changes. Reports having issues with sleep due to acid reflux and headache may be due to lack of sleep. Headache on left side of face around eye area. Taking Tylenol occasionally and gets relief. Positive movement. O: See flow sheet Gen: No apparent distress Abd: Gravid, nontender ASSESSMENT/PLAN: 1. Acute nonintractable headache, unspecified headache type - ICD9: 784.0, ICD10: R51.9 (primary diagnosis) 2. Heartburn during in second trimester - ICD9: 646.83, 787.1, ICD10: O26.892, R12 3. 26 weeks gestation of - ICD9: V22.2, ICD10: Z3A.26 - UA-+ Nitrates- Start Macrobid 100 mg PO BID/ Urine culture sent - BP normal today at 100/64 - No swelling noted - No RUQ pain - No s/s of preeclampsia - Suspect tension headache/ headache due to lack of sleep - Continue Tylenol 100 mg PO PRN for pain - Zyrtec 10 mg PO daily - Start Protonix 40 mg PO XR daily - Reviewed preeclampsia precautions - RTO 2 weeks for CECILIA with GCT Kaya Coleman APRN.CNM [facility] 12-05-2023 Progress note Formatting of t his note might be different from the original. S: Kimani Owens is a 23 year old female who presents at 03/27/2024, by Last Menstrual Period for a routine visit. Denies headache, visual changes, chest pain, shortness of breath, vaginal bleeding, leakage of fluid, or dysuria. Feeling well, no complaints. Good movement, No contractions O: See flow sheet Gen: No apparent distress Abd: Gravid, nontender Growth US today - report pending Discussed labs for next visit. ASSESSMENT/PLAN: 1. 23 weeks gestation of - ICD9: V22.2, ICD10: Z3A.23 (primary diagnosis) - GESTATIONAL GLUCOSE SCREEN, 1-HOUR, 50 GRAM, NON-FASTING - COMPLETE BLOOD COUNT AND DIFFERENTIAL - SYPHILIS TOTAL W/REFLEX 2. Encounter for supervision of high risk in second trimester, antepartum - ICD9: V23.9, ICD10: O09.92 - GESTATIONAL GLUCOSE SCREEN, 1-HOUR, 50 GRAM, NON-FASTING - COMPLETE BLOOD COUNT AND DIFFERENTIAL - SYPHILIS TOTAL W/REFLEX Palmira Palmer MD T [facility] 12-05-2023 Miscellaneous Notes S: Kimani Owens is a 23 year old female who presents at 03/27/2024, by Last Menstrual Period for a routine visit. Denies headache, visual changes, chest pain, shortness of breath, vaginal bleeding, leakage of fluid, or dysuria. Feeling well, no complaints. Good movement, No contractions O: See flow sheet Gen: No apparent distress Abd: Gravid, nontender Growth US today - report pending Discussed labs for next visit. ASSESSMENT/PLAN: 1. 23 weeks gestation of - ICD9: V22.2, ICD10: Z3A.23 (primary diagnosis) - GESTATIONAL GLUCOSE SCREEN, 1-HOUR, 50 GRAM, NON-FASTING - COMPLETE BLOOD COUNT AND DIFFERENTIAL - SYPHILIS TOTAL W/REFLEX 2. Encounter for supervision of high risk in second trimester, antepartum - ICD9: V23.9, ICD10: O09.92 - GESTATIONAL GLUCOSE SCREEN, 1-HOUR, 50 GRAM, NON-FASTING - COMPLETE BLOOD COUNT AND DIFFERENTIAL - SYPHILIS TOTAL W/REFLEX Palmira Palmer MD documented in this encounter [facility] 12-05-2023 Instructions Allison Rosenberg MA - 12/05/2023 2:04 PM EDT SEQUENTIAL SCREENINGS The [facility] offers sequential screenings for women who are interested in screenings for chromosomal abnormalities and certain defects during a . The sequential screen combines ultrasound and blood tests to determine the risk of chromosomal abnormalities, including Down's Syndrome (Trisomy 21) and Trisomy 18, as well as open neural tube defects including spina bifida. Ultrasound examination is performed between 11 weeks and 13 weeks gestational age. Blood tests are drawn after the ultrasound and again later in the between 15 and 21 weeks gestational age. Please let your physician know if you are interested in this testing. It will require an appointment with our industrial technician. This is not an ultrasound performed by a physician in our office during a routine visit. SIGNS AND SYMPTOMS OF LABOR 1. Contractions every 10 minutes or more often 2. Clear, pink, or brownish fluid (water) leaking from vagina 3. Feeling that baby is pushing down, pressure 4. Low, dull backache 5. Cramps that feel like a period 6. Cramps with or without diarrhea If you notice any of the above symptoms, contact our office at [phone] and ask to speak with a nurse. After hours, you can call [facility] at [phone] OR call [facility] at [phone] and ask to have the doctor senior telecommunications engineer paged. If you consider this an emergency, dial 9-1-1 or go to your nearest emergency department. NEED HELP? Are you dealing with a violent or abusive relationship? Are you a victim of rape or sexual assult? Call [facility] ([place]) 24 hour Crisis Hotline: 934.445.1405 or 889-403-7124. MANUAL Your Guide to a Healthy manual is now on-line. Visit [email or web address] ncyGuide to download your free copy documented in this encounter [facility] 11-26-2023 Telephone encounter Note Noted James Hargrove MD [facility] Work Phone: 11-26-2023 Miscellaneous Notes Noted James Hargrove MD 22w4d Pt called stating yesterday she started with chills, chest heaviness/pain, throat hurting and ears hurting. Denies fever. States took Tylenol with minimal improvement. Advised with the chest pain to go to ER. Voiced understanding and agreeable. Alissa Pereyra RN documented in this encounter [facility] 11-26-2023 Telephone encounter Note 22w4d Pt called stating yesterday she started with chills, chest heaviness/pain, throat hurting and ears hurting. Denies fever. States took Tylenol with minimal improvement. Advised with the chest pain to go to ER. Voiced understanding and agreeable. Alissa Pereyra RN [facility] 11-22-2023 Telephone encounter Note 1st risk assessment form submitted 11/22/23 Kusum Anderson RN [facility] 11-22-2023 Miscellaneous Notes 1st risk assessment form submitted 11/22/23 Kusum Anderson RN documented in this encounter [facility] 11-21-2023 Instructions Maximo Goetz APRN.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 - 11/21/2023 11:29 AM EDT Images from the original note were not included. Thank you for your interest in [facility] at [facility]. Your provider has referred you for counseling services. Below you will find a list of options. Psychotherapy Services at [facility] Call Behavioral Health Access Line at [phone] to schedule Individual psychotherapy In-person or virtual Wait time for first evaluation may be 12 or more weeks. Wait list spots may be available. Due to the high volume of patients this option is recommended if you are looking for short term acute symptom coping strategies. 3-126-7-EUMG0WWYV - [place] [facility] Hotline If you are in suicidal crisis, please call or text 1-494-374-TALK ( ) or visit the National Suicide Prevention Lifeline website. mchb.hrsa.gov If you are in crisis, call 241 or go to your nearest Emergency Department Here are some links for wonderful Providers here in the community and surrounding areas. Do not hesitate to contact their offices, many are offering virtual visits during this time. Psychotherapy Services outside of [facility] Support International Online Provider Directory https://Metaset.HealthLinkNow/ - can assist in finding providers in your area that might be more extensive then the list below. [facility] [place], [place] [address] [place] [address] [facility] [address] [place] [address] [facility] [address] [place] [address] [facility] [address] [place] [address] Esthela Turner MD [address] [place] [address] [facility] [address] [facility], [address] [place] [address] [facility] [address] [place] [address] [facility] [place] [phone]/ [phone] [facility] [address] [facility] [phone] [facility] [place] [phone] [facility] [address] [place] [address]/ [place] [facility] [place] [phone] DILMA Dang, [facility], telehealth and at home visits. [phone] [facility] 20 locations [place], [place], [place], [place], [place], [place], [place], [facility], [place], [place], [place], [place], [place], [place], [facility], [place], [place] ,[facility], [place], [place],[facility], [facility], [place], [facility], [facility], [place] www.jfk medical centeristicfairfax hospitaler.[facility] [phone] Psychotherapy resources outside of [facility] are listed below Pixable Psychotherapy Web: https://www.Mamaherb/ Support International Online Provider Directory https://SpinPunch/ Insight [facility]ing https://DreamHeart.HealthLinkNow/ Partners for Behavioral Health and Wellness Web: https://ZhenXin/ Center for Effective Living Web: https://www.NP PhotonicsSnagFilms/ LifeStance Web: https://Pi-Cardia/location/s jesús/pushpa/ [facility] Web: https://www.[facility].or / [facility] Web: https://WooWho.SkillSurvey/ Recovery Resources Mental health and substance abuse help Web: https://www.TiVUS & RESOURCES Support International Direct peer support and connection to professional resources Non-Emergency Helpline Phone: / Text: [phone] Web: https://www..net/ Online Provider Directory: https://SpinPunch/ Online Support Meetings: https://www..net/get-he lp/yws-tazijl-qdfuzoo-meetings/ AP Baby and Appraiser Services Web: https://INFERNO FITNESS [place]/ Avtodoria Expert information on medication use during and Text: [phone] Web: https://Connectiva Systems/ NATIONAL REGISTRY FOR PSYCHIATRIC MEDICATIONS Currently studying the safety of antidepressants, ADHD medications and atypical antipsychotics taken during TO PARTICIPATE CALL TOLL-FREE: Web: https://womensmentalhealth.org/re search/pregnancyregistry/ Support Groups: [facility]- Follow on facebook Baby Bistro support group led by [facility] department Resilient Mamas - Support Group [facility].org The POEM support group [phone] Www.poemonline.org Follow on facebook - CASIE suarez Online support meetings PSI https://www..net/get-he lp/tvk-gvupph-tyyisva-meetings/ [facility] mommy and me virtual support group 11:30-1pm Support for mothers and new babies and toddlers [place] childbirth education: Childbirth @ccf.org or call [phone] CRISIS: CRISIS HOTLINE [phone], 911 or go to the nearest ER. [facility] [phone] / [facility] [phone] https://www.newyork-presbyterian hospitalrb.org Crisis text line text the word HOME to [id number] [facility] [address] jose [address] [facility] [address] www.CloudWalk Sigrid Tolliver clinical counseling [address] [address] www.Yoomba [phone] Holding space psychotherapy Annabelle Hawthorne DIRECTOR MICROBIOLOGY FIRER LOCOMOTIVE-S [address] [facility] www.Aegis Petroleum Technology [phone]/ [place] [phone] They all offer virtual. All work with trauma Support groups Online support meetings PSI https://www..net/get-he lp/jsy-avcwby-rhbmyws-meetings/ Here are the support groups they offer: Support of parents of 1 to 4 years old children POEM ( Outreach and Encouragement for Moms) offers free support for mothers experiencing depression, anxiety, and other mood and anxiety disorders. Masks are recommended but not required. No pre-registration required. Babies in arms welcome. meetings now take place on the and Saturday of each month Location: [facility] [address] [place] [address] Room 122 (library room) 7-8:00 p.m. When you enter the [facility] parking lot off of [address] the entrance door closest to our meeting room is on the front of the building toward the right. For those who are more comfortable with a virtual platform, POEM offers online support group options several days of the week. To register for an online group or to find out more about POEM, website at: https://mhaohio.org/get-help/edgewood state hospitalmwdt-ndtdux-dcvjav/poem-services/ offer a confidential helpline: private Facebook group is called CASIE Suarez Here are the groups they offer: Traumatic childbirth resources: Http://pattch.org/ https://www.horacecuate Fuse Powered Inc..HealthLinkNow/ Name Location (s) Phone # (s) Services Website Holding Space Psychotherapy [address] [facility], [place], [place] - [phone]; [address] [facility] [address] [place], [place]- [phone] In-Person GROUPS INDIVIDUAL THERAPY MATERNAL-INFANT MENTAL HEALTH MEDICATION MANAGEMENT PLAY AND ART THERAPY TELETHERAPY https://www.Mamaherb/s ervicrich/ Amita alvarenga [facility]? [address] [place], [place] [address] ? [address], [address] [place], [place] [address] ? [place] [id number]? Grief Support Groups Individual Grief Counseling Spiritual Care Memorial Events https://gering.[facility].org/grief-services [facility] [address] [place], [place] [address]; ; Email: mary [email or web address] Women's Mental Health; Couples Counseling; Trauma (EMDR); Stress Management; Mood and Anxiety Related Disorders- and much more https://www.playnik/ LifeStance Numerous as they have contract providers: access website to find specific providers near you Counseling including CBT and EMDR as well as many more modalities; Medication Management; Telehealth and In-Person https://Pi-Cardia/ Partners [facility]al Health [facility] Wellness [address] [place], [place] [address]; [phone] Personal, Family and Group Therapy; Psychological Testing and Diagnosis; Medication Management; Life and Career Coaching; Psychoanalysis; Literacy Testing; Yoga and Meditation https://SiCortex.HealthLinkNow/ Fit Mind Hyrum [address] [facility] [address] [address] [address] ; [address] [facility], [address] [place] [address]; Office # for both sites: Individual and Couples Counseling https://www.ConSentry Networks.HealthLinkNow/ paymentinsurance.html OCD & Anxiety [facility] [address] [place] [address], [address], [place] [address]; Specialize in Cognitive-Behavioral Therapy (CBT) for the treatment of anxiety disorders across the lifespan. TELEHEALTH ONLY. https://ocdandanxietycenterochildren's hospital of columbusv Materialise/faqs [facility] [address] [place], [address] [place] [address] [place], [address] [place] [address] [address] [place], [address] [place] [address] [place], [address], [address] [place] [address] [facility] [place], [address] [place] [address] [place], [address] Transportation Services To minimize patient barriers, [facility] provides transportation services to patients who qualify. If you are unable to get to your appointment at any of our facilities, please let us know. Need help now? Stop by one of our walk-in clinics to establish behavioral health care. Counseling Indvidual, Group, Couples and Family Counseling and EMDR. Medication Management Case Management benefits applications housing assistance Substance abuse treatment Medication assisted treatment https://www.[facility].or g/mental-health/ [facility] OFFICE AT [facility] [address] [place] [address] [facility] OFFICE [address] [place] [address] [facility] OFFICE [address] [place], [place] [id number] [facility] OFFICE (at [facility]) [address] [place] [address] [facility] SYRINGE EXCHANGE PROGRAM & HIV SCREENING [address] [place] [address] [place] SYRINGE EXCHANGE PROGRAM [address] [place] [address] Behavioral Health Urgent Care: [facility] Counseling Indvidual and Group Medication Management Case Management benefits applications housing assistance Substance abuse treatment Medication assisted treatment Employment Services/ Job Training https://WooWho.org/ Recovery Resources [address] [place], [place] [address]: P: [phone] [address] [facility], [address], [place], [place] [address] P: [phone] Our services include: Addiction Mental Health Treatment Assessment Psychiatry Medical Care Employment Housing Drug and Alcohol Prevention HIV/AIDS Prevention https://www.recres.org/ [facility] [place] [address] [place] [address] [place] [address] [place], [place] [address] [place] [address] [place] [address] [place] [address] [facility] [address] [place] [address] [place] [address] [address] [place] [address] TMS Therapy/ Counseling Psychocological Testing for ADHD Medication Management In-Person/ Telemedicine https://www.ZeePearl/sheldon ents-depression Memory & Psychological services [address] [place] [address], [place] [address] Neuropsychological Testing For ADHD https://www.memoryandpsych.com/ [facility] Office [address] [place] [address] [address] Providing dhcx-wy-zmml and telehealth services. Adult Case Management Community Education and Prevention Employment Outpatient Treatment - Counseling & Psychotherapy Psychiatric Services http://www.ccwhc.org/ [facility] [place] [address] [place] [address] [facility] [address] [place] [address] Virtual Appointments! Now offering safe and convenient virtual client appointments to anyone in [place]! Individual Therapy Couples/Relationship Therapy Trauma/EMDR Therapy Art Therapy Play Therapy Pet Crematory Worker Support: Parenting Skills, Parent Child Interaction Therapy, Parent Infant Interaction Therapy Meditation Dietitian/Django Developer Services Group Therapy Yoga https://www.Hearing Health Science. HealthLinkNow/ Sahara Paul [phone] Private Practice: Telehealth Only Specializes in EMDR for Trauma None MORNING SICKNESS IN by Estefania Freeman M.D. for Cardeeo As you may already know, morning sickness can often be more appropriately called evening sickness or yitss-glyfqm-rf-the-day sickness. While there are the mustapha few, most women (50-90%) experience some degree of nausea, some have vomiting, and a few develop a severe form of vomiting during called hyperemesis gravidarum. What causes the nausea and vomiting of ? We can't explain why some people feel fine and others are green for months. Even the same woman may feel vastly different in each . There is some relationship between nausea and the level of the hormone hCG. In twin pregnancies, and in other situations where the hCG is greater than expected, nausea and vomiting tend to be worse. In a destined for miscarriage, hCG levels tend to be low, and nausea is often less severe. This being said, a lack of nausea doesn't guarantee that the is destined for miscarriage. The fact that nausea and vomiting are often signs of a healthy can offer a silver lining in the dark cloud of miserable nausea. How long will the nausea last? Fortunately, for most women, nausea and vomiting are a first trimester event, peaking at week 9-10 and waning by week 14-16. When you are feeling bad the weeks can go by slowly but most moms do feel tremendously better by the middle of the . Whether morning sickness is a brief experience or lasts through most of the , there are treatments that can make the weeks or months more tolerable. What can you do about it? Diet: See what works for you. Try eating bland dry foods, and avoid fatty or spicy foods. It is okay to eat a less than perfectly balanced diet in the first trimester. Have your liquids separately from dry foods. Try sports drinks, water, clear juices, Eric-aid, or non-caffeinated tea. Avoid carbonated beverages that fill up your stomach. Try eating lots of little meals. If you tend to feel sick when you first wake up, leave crackers next to the bed for a quick snack before rising. Keeping healthy snacks with you all day to nibble when you feel queasy can sometimes even prevent nausea from starting. vitamins and nausea: Pre- vitamins can sometimes worsen nausea in . While folate is necessary, especially early in the , it comes as a smaller pill that many people find more tolerable than the complete vitamin pill. Ask your practitioner if it is okay to temporarily replace vitamins and iron with just a folate pill if you find a significant worsening in the level of your nausea from the vitamins. Alternative therapies: Acupressure may be used to treat nausea in , and is not known to have any risks for the fetus. Wristbands (marketed for seasickness) that put pressure on an acupressure point at the wrist are often available at drugstores or travel stores. Georgina root is used for nausea in many traditional cultures. Some women take fresh grated georgina or georgina tablets. It is possible that the pill form contains other ingredients or contaminants, so you may want to try fresh georgina first. Medications: Emetrol is the only nausea medication approved for use in . It is available over the counter and is soothing to the stomach. A prescription medication called Bendectin was available in the -1979's and was shown to be safe in , but the company stopped marketing it in the [place] due to the costs of liability coverage. Bendectin contained 10 milligrams of vitamin B6 and 10 milligrams of Doxylamine. Two tablets were given at bedtime and a total of up to 4 tablets could be used in a 24-hour period. Interestingly, Unisom , which contains a higher dose (25 mg.) of the same medication, Doxylamine, is currently marketed as an lugv-saw-psthghs sleeping pill. Ask your practitioner if creating a vitamin B6/Doxylamine combination with nzqw-qcl-rnqfnah medications would be safe for you. Prescription medications like Compazine and Phenergan can be used if the benefits outweigh possible risks, but these have not been clearly shown to be safe in . Zofran , an expensive anti-nausea medication often used to treat nausea from chemotherapy, can also be used. Can I throw up so much it harms the baby? The act of vomiting cannot hurt your fetus, which is protected inside the uterus. If you get dehydrated or develop a metabolic imbalance, this can be unhealthy. As long as you can keep down liquids, you and your baby will generally do all right. Eat when you feel able. If you are unable to keep anything down, or if you notice potential signs of dehydration such as lightheadedness, or concentrated and/or infrequent urination, call your practitioner. Some women need brief hospital admission for intravenous fluids and anti-nausea medications if their condition becomes severe. This severe form of nausea and vomiting is called Hyperemesis Gravidarum. As with many symptoms of , remind yourself that this, too, shall pass, and you'll have a wonderful baby to show for it! TREATMENT OPTIONS, SHORT VERSION: Frequent small meals Hydrate throughout day Sea-Bands wrist pressure point applicators Georgina root (powdered, in capsules) 250mg four times a day Vitamin B6 25 mg tablet three times a day Also may be taken with half a tablet of Unisom three times a day (Doxylamine 12.5 mg) If severe (weight loss, dehydration), call us and come in for IV hydration and possible medication in the form of injections. Prescription medications such as Phenergan, Compazine, Reglan documented in this encounter [facility] 11-20-2023 History of Present illness Narrative Images from the original note were not included. INITIAL OB ASSESSMENT HPI: Kimani is a 23 year old White here to establish Obstetrical Care. Patient's last menstrual period was 06/21/2023 (exact date). from OB Dating Form. was planned Complaints: (!) Pain on urination; nausea/vomiting (recently treated for UTI in - nausea has improved. OB History T2 L2 SAB1 IAB0 Ectopic0 Multiple0 Live Births2 # 1 - Date: 03/24/18, Sex: Male, Weight: 3.317 kg (7 lb 5 oz), GA: 43w2d, Delivery: Vaginal, Spontaneous, Apgar1: None, Apgar5: None, Living: Living, Comments: None # 2 - Date: 10/26/20, Sex: Male, Weight: 3.374 kg (7 lb 7 oz), GA: 40w3d, Delivery: Vaginal, Spontaneous, Apgar1: None, Apgar5: None, Living: Living, Comments: None # 3 - Date: 03/2023, Sex: Female, Weight: None, GA: 11w0d, Delivery: MISSED AB, Apgar1: None, Apgar5: None, Living: None, Comments: D&C, testing showed baby had Down Syndrome # 4 - Date: None, Sex: None, Weight: None, GA: None, Delivery: None, Apgar1: None, Apgar5: None, Living: None, Comments: None Previous history: Prior : never History of 4th degree laceration: No History of shoulder dystocia: No History of Hypertensive disorders including pre-eclampsia or gestational hypertension: No History of gestational diabetes: No Patient's Risk Screening for delivery: Have you had a prior midldeton between 20w and 36w6d? No How many pregnancies have you had before? 3 Did you have a previous baby with a GBS Infection? No Please select all that apply for any prior : N/A MEDICAL/PSYCHOSOCIAL HISTORY: History of hemorrhage or bleeding concerns: No Thyroid Disease: No History of chronic hypertension: No History of pre-existing diabetes: No No results found for: ABORHD BMI 24.07 kg/(m^2) Last Pap: History of abnormal pap: No Prior treatment for cervical dysplasia: none. Last HPV: History of STDs: None Partner History of STDs: None Did you have a partner with Herpes? No Tobacco use: No E-Cigarette/Vaping Use: No Caffeine use: Yes drinks a cup of coffee a month Drug use: No Alcohol use: No Multivitamin with Folic acid: Yes Would refuse blood transfusion if medically necessary: No Social Needs: How often does this describe you? I don't have enough money to pay my bills: Never Within the past 12 months, have you worried that your food would run out before you had money to buy more? Never In the past 12 months, has lack of reliable transportation kept you from going to medical appointments or work, or from getting things needed for daily living? Never In the past 12 months, have you had any concerns about having a place to live, or about the condition or quality of your housing? Never Would you like more information on any of the following (please check all that apply)? Not interested Social History: Do you have any history of depression, anxiety, PTSD, or other mood problems? Yes Do you have a history of abuse or trauma that may impact your experience? No Are you currently employed? No Depression/Anxiety Screening: admits to symptoms of depression. OB Depression and Anxiety Screening- This Encounter (since 11/19/2023) Over the past 2 weeks have you felt down, depressed, or hopeless? Positive - Further Testing Indicated Over the past two weeks, have you felt little interest or pleasure in doing things? Negative I have been able to laugh and see the funny side of things. As much as I always could I have looked forward with enjoyment to things. Rather less than I used to I have blamed myself unnecessarily when things went wrong. No, never I have been anxious or worried for no good reason. Yes, very often I have felt scared or panicky for no good reason. No, not much Things have been getting on top of me. No, most of the time I have coped quite well I have been so unhappy that I have had difficulty sleeping. Not at all I have felt sad or miserable. No, not at all I have been so unhappy that I have been crying. No, never The thought of harming myself has occurred to me. Never [place] Depression Scale Total 6 Feeling nervous, anxious or on edge 1-Several days Not being able to stop or control worrying 3-Nearly every day Anxiety Pre-Screening Total (If >/= 3 additional questions will be reviewed) 4 Worrying too much about different things 1-Several days Trouble relaxing 1-Several days Being so restless that it is hard to sit still 1-Several days Becoming easily annoyed or irritable 1-Several days Feeling afraid, as if something awful might happen 0-Not al all Anxiety (ZONIA) Full Screening Total 8 Genetic Screening: Partner present: No Patient verbalized knowledge of partner family health history: Yes Do you or your partner have any personal or family history of defects not previously discussed: No Do you have history of a complicated by anomaly, genetic condition, or demise: Yes, Down Syndrome OB Risk Screening: Completed, no positive findings documented. 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 Gender: Male PAST MEDICAL HISTORY Diagnosis Date Anemia Depression with anxiety Endometriosis 11/27/2018 Minimal Kidney stones depression Recurrent UTI Has seen Dr Henry PAST SURGICAL HISTORY Procedure Laterality Date D&C, DIAG AND/OR THERAPEUTIC LAPAROSCOPY DIAGNOSTIC 11/27/2018 Minimal endometriosis LITHOTRIPSY XTRCORP SHOCK WAVE 2022 Current Outpatient Medications Medication Sig Dispense Refill ondansetron orally disintegrating (ZOFRAN ODT) 4 mg disintegrating tablet DISSOLVE 1 TABLET IN MOUTH EVERY 6 HOURS NEEDED FOR NAUSEA AND VOMITING vit no.129/iron/folic ( ONE DAILY ORAL) Take by mouth. acetaminophen (TYLENOL EXTRA STRENGTH) 500 mg tablet Take 1,000 mg by mouth every 8 hours as needed. No current facility-administered medications for this visit. Allergies As of Date: 11/21/2023 (No Known Allergies) Fully Assessed 11/12/2023 Does patient have penicillin allergy: No REVIEW OF SYSTEMS: GENERAL: Negative for: Fever or Chills HEENT: Negative for: Headache, Impaired Vision, Ringing in Ears, Nosebleeds NECK: Negative for: Swelling, Pain, Stiffness RESPIRATORY: Negative for: Cough, Shortness of breath, Wheezing GASTROINTESTINAL: Negative for: Heartburn, Constipation, Diarrhea, Blood in stool + occasional nausea MUSCULOSKELETAL: Negative for: Muscle or joint pain, stiffness, Joint swelling NEUROLOGIC/PSYCHIATRIC: Negative for: Weakness, Paralysis, Numbness, Tingling, Tremor Memory loss + anxiety and depression SKIN: Negative for: Itching + recently rash to bilateral legs from wearing pants without washing, resolving GENITOURINARY: Negative for: vaginal itching, vaginal discharge, hematuria or dysuria PHYSICAL EXAM: BP 110/70 Ht 5' 4 (1.63m) Wt 140 lb 3.2 oz (63.6kg) LMP 06/21/2023 BMI 24.05 kg/(m^2). GENERAL: pleasant in no apparent distress DERMATOLOGY: Normal, without lesions, non-icteric, and non-hirsute NECK: Supple, full range of motion, no adenopathy, and thyroid normal CHEST: Normal inspiratory effort ABDOMEN: gravid, nontender NEURO: alert and oriented x3,exam grossly non-focal SBIRT Kimani L Cook was given the 4P's screening tool. Kimani answered as follows: OB Opioid Screening - Last Recorded (since 02/23/2023) Did any of your parents have a problem with alcohol or other drug use? Yes mother-ETOH and drugs Does your partner have a problem with alcohol or other drug use? No In the past, have you had difficulties in your life because of alcohol or other drugs, including prescription medications? No In the past month have you drunk any alcohol or used other drugs? No Are you taking medication for pain during the either prescribed or not? No Based on the screen and further questions, she is considered at Low risk due to:No past or current use. Positive reinforcement of current behavior. Plan to rescreen early third trimester. Maximo Goetz APRN.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 ASSESSMENT: 23 year old at 21w5d wks gestational age PLAN: 1) Patient oriented to practice. Patient given new OB orientation folder. Discussed nutrition, folic acid supplementation, dietary guidelines, exercise, smoking, alcohol, caffeine, and drug use. Discussed gestational weight gain guidelines. Discussed routine OB labs including STD/HIV. Discussed how to access Your guide to a health and the Reagent Tender. Discussed hemoglobin electrophoresis. Patient: wants to wait until 28 week labs Reviewed midwifery and wardrobe technician services that are available. 2) Screening: Hemoglobin A1C: Baby Aspirin: The patient has been counseled about the potential benefits of low dose aspirin in and our recommendation that this be offered to all patients, regardless of whether they meet the high risk criteria specified above. She is not taking. Aneuploidy Screening: Discussed aneuploidy screening, nuchal translucency/first trimester early anatomy ultrasound and NIPT. The risks/benefits and limitations of NIPT/aneuploidy screening were reviewed including the potential for false negative and false positive results. The availability of genetic counseling was reviewed. Information on aneuploidy screening was provided. The patient already had [id number]. Myriad Carrier Screening: Discussed myriad carrier screening. We discussed the availability of professional-society guided carrier screening and reviewed the conditions screened and limitations of screening. The availability of genetic counseling was reviewed. Information on carrier screening was provided. The patient Previously ordered 3) Patient offered option of Virtual Visits. Patient unsure. May consider in future. ACTIVE PROBLEM LIST Encounter for Supervision of High Risk in Second Trimester, Antepartum - 11/21/2023 Comment: Care Checklist Vaccines: [] Flu vaccine [] declined [] RSV vaccine 32 0/7 - 36 6/7 (Jan - Jun) [] declined [] COVID vaccine [] declined [] TDaP 27-36 [] declined First trimester: [x] Dating US [x] 1st tri labs [x] Pap smear [] Carrier screening [] declined [x] NIPT screening [] declined [] First trimester anatomy scan [] declined [] universal ASA ordered (start 12w-16w) [] declined [] M Power Consult [] not indicated [] declined Second trimester: [x] AFP [] declined [x] Anatomy scan [] Mode of Delivery - [] Feeding - [] Pump ordered [] Diabetes screen [] CBC, RPR Third trimester (28-30 weeks): [] Consent [] Contraception - [] Blood Bank Technician Third trimester (36-40 weeks): [] GBS [] Presentation - [] Scheduled [] yes - Hibiclens, pre-op instructions, CBC, T&S ordered [] no [] H&P With Care Elsewhere in Second Trimester - 11/21/2023 Comment: Transferring from [place] at 21w6d. Op records scanned. records scanned. History of Recurrent Uti (Urinary Tract Infection) - 11/21/2023 Seeing a urologist 12/09/23 History of Miscarriage - 11/21/2023 Comment: 05/2023 7w6d missed miscarriage. Dysuria - 11/21/2023 Comment: 11/21/23 Recently treated with Keflex for UTI. Repeat urine culture sent. Circumvallate Placenta, Second Trimester - 11/21/2023 Comment: Per anatomy scan from [place]. Repeat ultrasound first available. Depression With Anxiety Comment: 11/21/23 EDPS sore 6. ZONIA score 8. Does not have counselor. Reviewed local resources and mental health resources provided. Denies thoughts of self harm or harming others. Endometriosis - 12/10/2018 Follow up for first available ultrasound and OB visit. PTL precautions reviewed. Maximo Goetz APRN.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 documented in this encounter [facility] 11-12-2023 Note HNO ID: [id number] Author: BERTRAM CABRERA MD Service: Obstetrics Author Type: Physician Type: Progress Notes Filed: 12/18/2023 04:04 Note Text: OBSTETRICS OB ED PROGRESS NOTE SERVICE DATE: November 12, 2023 SERVICE TIME: 11:00 PM Subjective Patient's stated reason for arrival: severe right abdominal pain that feels like how it did when I had kidney stones CHIEF COMPLAINT: UTI with CVA tenderness HISTORY OF THE PRESENT ILLNESS: The patient is a 23 year old female, , who is at 20w5d with an CHRISTIE of 03/27/2024. Patient is here with lower back pain, concerning for pyelonephritis for [place] [facility]. Good movement. Denies vaginal bleeding. Denies leaking of fluid, painful contractions. Patient began having urinary symptoms: burning with urinating and foul-smelling urine, 3 days ago. She saw her urologist today and had a positive urine dipstick for UTI, and was provided with Keflex. She has taken 2 doses of Kelfex today. Her lower back pain worsened throughout the day, so she presented to [place] [facility] and she was transferred to the OB ED for workup of pyelonephritis. She has history of bilateral nephrolithiasis with pyelonephritis December, and since then has been having recurrent UTIs. She was seen by urology and has been on daily Keflex since January,. GI side effects of the Keflex became intolerable so she stopped taking Kelfex 1 month ago. Only 1 UTI in thus far. Medical history: Recurrent UTI, Nephrolithiasis, Endometriosis Medications: vitamin Surgical history: Laparoscopy for endometriosis Social history: No smoking, alcohol, marijuana REVIEW OF SYSTEMS: Constitutional: Denies fevers, chills. GI: Endorses nausea, intermittent diarrhea. Denies vomiting, constipation. : Endorses contractions, dysuria and malodorous urine. Denies leakage of fluid, abnormal vaginal discharge, vaginal bleeding, decreased movement. Objective LAST VITALS: Pulse: 88 BP: 117/78 Resp: 16 Temp: 36.4 ?C (97.5 ?F) PHYSICAL EXAM: General: no acute distress, comfortable appearing Cardio: normotensive, non-tachycardic, perfusing well Pulmonary: breathing comfortably and saturating well on room air Abdomen: gravid, soft, non-tender, non-peritoneal Back: paraspinal tenderness in the right lower lumbar region, no CVA tenderness bilaterally LABS Diagnostic tests reviewed for today's visit: Urine dipstick with negative nitrites, trace leukocyte esterase, moderate leukocytosis. CBC with non-elevated WBC. Assessment/Plan Patient is a 23 year old female at EGA:20w5d presenting for paraspinal lumbar tenderness in the context of UTI. Patient likely having MSK pain in the lower back, lower concern for pyelonephritis. Active Hospital Problems Diagnosis Date Noted Right flank pain 11/12/2023 Overview Note: - Right flank pain 5/10 since this afternoon. Worse with position changes. - Denies fever, chills, new or worsened nausea, emesis - Had does of rocephin at [place], transferred to OB ED for further evaluation - History of kidney stones, recurrent UTIs - Received Lithotripsy in 2022 - No vaginal bleeding, leakage of fluid, decreased FM - Vitals WNL, doptones present and WNL - Abdominal exam benign. - Negative CVA tenderness. Right lower lumbar area mildly tender. - UA at [place] borderline. Urine culture pending. WBC WNL. - Possible etiologies include nephrolithiasis, pyelonephritis, MSK, cystitis. With setting of pain worse with positioning likely MSK related pain. Pyelonephritis less likely with borderline UA, afebrile status, and WBC WNL. - Has had one UTI this per patient. Does not meet criteria for recurrent UTI at this time. - Will discharge home with return precautions. Recommend following up with regular OBGYN. Will send new urology referral as patient desires new urologist for management of recurrent UTIs. Plan of care discussed with: Provider, RN, Patient. Dr. Paulette Michaels, MS4 TEACHING PHYSICIAN NOTE OF PERSONAL INVOLVEMENT IN CARE: I have personally seen and examined the patient and performed the medical decision-making components. I have reviewed the medical student documentation and verified the findings in the note as written. Any additions or changes are noted in bold/italics. Signature: Nancy Nunn Date: 11/13/2023 Time: 1:01 AM Discharge Vital signs: .BP 117/78 Pulse 88 Temp 36.4 ?C (97.5 ?F) (Temporal) Resp 16 LMP 06/21/2023 Follow-up: with regular OBGYN next week, with new urologist Precautions: fever, chills, labor New or adjusted home medications: None Other recommendations/instructions: heating pads, tylenol for lower back pain Discussed with primary Ob Provider/Group: Dr. Paulette Nunn, DO I saw and evaluated the patient. Discussed with the resident and agree with resident's findings and plan as documented in the resident's note. (more content not included)... [facility] 10-31-2023 Telephone encounter Note Patient scheduled [facility] 10-31-2023 Miscellaneous Notes Patient scheduled No quinones on f/u US and MFM eval. Ok to schedule NOB intake and then will schedule MFM and US in 3-4 weeks for f/u of the placenta. Muriel Estrada MD Ob patient called requesting to transfer care from [facility]Is not happy with their practice) Is currently 18w6d CHRISTIE 03/27/2024. Patient had anatomy ultasound today and was told she had a Circumvallate placenta and needed to schedule with MFM. Patient reports that her other dx are recurrent UTIs and thromocytopenia. Patient reports that she is ok seeing MFM at [facility] if needed. Please advise if patient needs a consult w/ MFM or schedule initial ob appointment. documented in this encounter [facility] 10-31-2023 Telephone encounter Note No quinones on f/u US and MFM eval. Ok to schedule NOB intake and then will schedule MFM and US in 3-4 weeks for f/u of the placenta. Muriel Estrada MD [facility] Work Phone: 10-31-2023 Telephone encounter Note Ob patient called requesting to transfer care from [facility].(Is not happy with their practice) Is currently 18w6d CHRISTIE 03/27/2024. Patient had anatomy ultasound today and was told she had a Circumvallate placenta and needed to schedule with MFM. Patient reports that her other dx are recurrent UTIs and thromocytopenia. Patient reports that she is ok seeing MFM at [facility] if needed. Please advise if patient needs a consult w/ MFM or schedule initial ob appointment. [facility] 08-15-[address] [facility] Pap Smear Specimen Adequacy August 15, 2023 2:25pm Comment . Satisfactory for evaluation. Endocervical and/or squamous metaplasticcells (endocervical component) are present. Comment on above: Satisfactory for finesse luation. Endocervical and/or squamous metaplasticcells (endocervical component) are present. 08-15-[address] [facility] Pap Smear Specimen Adequacy August 15, 2023 2:25pm Comment . Satisfactory for evaluation. Endocervical and/or squamous metaplasticcells (endocervical component) are present. Comment on above: Satisfactory for finesse luation. Endocervical and/or squamous metaplasticcells (endocervical component) are present. 05-22-2023 Note . MICRO - Microbiology PROCEDURE: [...] Locations *1: This test was performed at: [facility], [address] [place] [address], [address] , [facility] ([place]) 05-22-2023 Discharge summary Note Date/Time May 22, 2023 1:02pm [facility] Medical Records Department [address] [place] [address] Instructions for Home/Discharge Instructions 05/22/23 1302 MR#: [id number] Acct: [id number] Name: KIMANI OWENS Rep #:[id number] : 2000 23 From: Palmira Duncan DO PCP: Miri Physician,No Primary Status :[facility] Discharge Instructions Diet Discharge Diet: No restrictions Activity Discharge Activity: Return to Normal Activity, May Shower and May Take a Tub Bath (after 1 week) May resume sexual activity in: 1-2 weeks Weight Bearing Status: Weight bearing as tolerated Lifting Restrictions: none Dressing / Incision Call your doctor if you observe: Fever of 101 or Higher, Using more than 1 pad per hour, Shortness of breath and Uncontrolled pain Follow Up Care Please Follow Up With: Palmira Duncan DO When: Call [phone] to schedule appointment. Test Results: Test results from this visit will be discussed in further detail at your follow-up appointment, if applicable. Discharge Plan Admission Primary Reason for Your Visit: dilation and curettage Attending Provider: Palmira Duncan Primary Care Provider: Miri Stroud,Jennifer Primary Discharge Orders/Prescriptions Prescriptions: New ibuprofen 800 mg tablet 800 mg PO Q8H PRN (Reason: pain) Qty: 30 0RF oxycodone-acetaminophen [Percocet] 5-325 mg tablet 1 tab PO Q4H PRN (Reason: pain) 7 Days Qty: 10 0RF Rx Instructions: 1-2 tabs q 4 hrs as needed for pain No Action DHA 200 mg capsule 200 mg PO DAILY Referrals / Follow Up: Care Physician,Jennifer Primary [Primary Care Provider] - Disposition Disposition (needs filled in before D/C Order can be placed): Home, Self Care 05/22/23 1306<Electronically signed by Palmira Duncan DO>Palmira Duncan DO CC: No Primary Care Physician ~ Signed [facility] Work Phone: 1(148) 758-977401-17-2024 History and physical note Author Palmira Oliva [facility] May 22, 2023 12:43pm Note Date/Time May 22, 2023 1 2:43pm [facility] Medical Records Department [address] [place] [address] History & Physical Exam 05/22/23 1243 MR#: [id number] Acct: [id number] Name: KIMANI OWENS Rep #:[id number] : 2000 From: Palmira Duncan DO PCP: Care Physician,No Primary Status :[facility] Location: [place] [address] History and Physical Date of Admission: 05/22/23 Intake Vital Signs 05/20/2418:48 05/21/2412:59 05/21/2413:00 Height 5 ft 4 in 5 ft 4 in 5 ft 4 in Weight: 129 lb 8 oz BMI 22.2 BP 124/78 H Intake Visit Reasons: Discuss options Grocery Caddy Required: No Is patient in pain?: No Allergies No Known Allergies Allergy (Verified 05/21/23 14:00) Medications cranberry 1,000 mg capsule 1,000 mg PO DAILY 12/31/22 [History Confirmed 05/21/23] docosahexaenoic acid 200 mg capsule ( DHA) mg PO 04/02/23 [History Confirmed 05/21/23] Post menopausal: No Patient : No : No PFSH Medical History Anxiety and depression Fatigue History of stress test Left renal stone Low iron Marijuana use Migraine headache Pilonidal cyst depression Vaginal delivery Vapes nicotine containing substance Surgical History History of laparoscopy Hx of wisdom tooth extraction Family History Father Arthritis Diabetes Hypertension High cholesterolMother Arthritis Hypertension Lupus Social History household members: spouse and children housing: house number of children: 2 current occupational status: employed 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 current occupational exposures/hazards: No pets and animals: Yes (2) pets and animals: dog(s) history of recent travel: No sexually active: Yes Smoking Status: Former smoker quit date: 07/16/17 second hand exposure: No alcohol intake: never substance use type: does not use diet: lactose free well-balanced diet: about half the time caffeine: No eating out: 1-3 times/week during the past year weight has: decreased > 10 lbs what type of physical activity do you participate in: none seatbelt use: always do you feel safe at home: Yes 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 history: [employer]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 She went there late last night when noticed was bleeding and ultrasound was performed showing no heart tones. She is tearful today but states that the bleeding has slowed down. History 3 Elective abortions Hx Para 2 Spontaneous abortions Hx # Term Pregnancies 2 Ectopic pregnancies Hx # Pregnancies Multiple births # of living children 2 Past Pregnancies Del. Date Name GA/Weeks Outcome Route Bth Weight Infant Gen Labor Lgth Anesthesia Del Locatn Provider FOB 03/24/18 [place] 40 live - full term 7lbs 5oz Male 1 2 hours epidural [facility] SM 10/27/20 Th[place] 40 live - full term 7lbs 14oz Male epidural [facility] Marcanthony Delivery Date: 03/24/18 Last Updated by: Maximo Singletary dec- internal monitor used. ROS Const ROS Unobtainable: All systems reviewed & are unremarkable except as noted in H Resp Resp: Reports system reviewed and no additional complaints, except as documented; Denies cough GI GI: Reports as per HPI Psych Psych: Reports system reviewed and no additional complaints, except as documented Exam Const General: cooperative, healthy appearing, comfortable and no acute distress Resp Effort & Inspection: normal respiratory effort General: bimanual renal exam normal bilaterally External Female Exam: normal appearance of the urethra Urethra: normal appearance of the urethra Speculum Exam - Vagina: normal appearance of the vagina and vaginal bleeding Speculum Exam - Cervix: normal appearance of the cervix Bimanual Exam- Adnexa, other: normal adnexae and normal Pelvic Support: normal OB/External & Speculum: vaginal bleeding Speculum Exam: vaginal bleeding Other: ultrasound shows a 7 week 6 day iup without heart tones. Skin General: no rashes or lesions noted Psych Appearance: grossly normal Speech and Movement: speech and movement normal Coding Level of Care Code Off vis,est,level 4 Diagnoses Incomplete O03.4 Assessment and Plan Assessment and Plan (1) Incomplete : Status: Acute Plan: After discussing the patient's diagnosis and treatment plan options, patient wishes to proceed with surgical management. I have discussed with the patient the risks, benefits, and alternatives of the procedure which include but are notlimited to risks of anesthesia, bleeding, infection, possible damage to bowel, bladder, or surrounding vasculature which could lead to additional surgery to evaluate any complications. Patient agrees to procedure and wishes to proceed. ACOG/uptodate references given for additional information regarding procedure. plan for suction dilation and curettage. patient declines Anora testing. 05/22/23 1243 <Electronically signed by Palmira Duncan DO> Cosigner Signature (if applicable): CC: Dr. Palmira Duncan, ; No Primary Care Physician~ Signed [facility] Work Phone: 1(424) 603-932201-17-2024 Procedure [facility] 05-21-2023 Hospital Discharge instructions Patient Education 05/20/2023 22:21:48 Missed Miscarriage [...] miscarriage. These activities are usually safe unless youhave pain or bleeding or your doctor tells you to stop. Even minor falls won t cause a miscarriage.Miscarriages happen because things were not developing as they were supposed to. You still have some tissue from the in your uterus. Because of this, you may have some bleeding. It might be light spotting or as heavy as a period. You may also have some cramping. Usuallyall of the tissue will pass out by [...] or pink flesh. If tissue has not passedfrom your vagina within the next 5 days, you need to see your healthcare provider for another exam.To prevent infection in the uterus, your provider [...] container and bring it to your provider. [id number] [employer]. [address] [place] [address]. All rights reserved. This information is not intended as a substitute for professional medical care. Always follow yourhealthcare professional's instructions. 05/20/2023 22:18:28 Urinary Tract Infections in Women Urinary Tract Infections in Women Urinary tract infections (UTIs) are most often caused by bacteria. These bacteria enter the urinarytract. The bacteria may come from outside the body. Or they may travel from the skin outside the rectum or vagina into the urethra. Female anatomy makes it easy for bacteria from the bowel to enter awoman s urinary tract, which is the most common source of UTI. This means women develop UTIs more often than men. Pain in or around the urinary tract is a common UTI symptom. But the only way to knowfor sure if you have a UTI for [...] feel the urge to urinate. And always urinatebefore going to sleep. Urine that stays in your bladder can lead to infection. Try to urinate before and after sex as well. Practice good personal hygiene. Wipe yourself from front to back after using the toilet. This helpskeep bacteria from getting into the urethra. Use condoms during sex. These help prevent UTIs caused by sexually transmitted bacteria. Also don'tuse spermicides during sex. These can increase the [...] If needed, more treatment may be started. [id number] [employer]. [address] [place] [address]. All rights reserved. This information is not intended as a substitute for professional medical care. Always follow yourhealthcare professional's instructions. Follow Up Care 05/20/2023 20:25:22 With:TONY GLORIA Address: [address] [place] [address] [place] [address]- [phone] Business (1) When:1-2 days Comments:Schedule appointment for close follow-up.Tylenol for pain as needed.Use antibiotic (cephalexin) to treat presumed UTI.Return to the ED if symptoms worsen. [facility] 01-15-2024 Note Discharge Instructions Thank you for allowing [facility] to assist you with your healthcare needs. The following is importantdischarge information regarding your hospital visit. Diagnosis from [...] to the ED if symptoms worsen. Where: [place] [address] [place] [address]- [phone] Business (1) Allergies NKA Medications Please ask your primary doctor or pharmacist before taking any other medication not listed, including over the counter drugs, herbal medications, vitamins and or supplements as they may interact withyour home medications. What How Much When Instructions [...] miscarriage. These activities are usually safe unless youhave pain or bleeding or your doctor tells you to stop. Even minor falls won t cause a miscarriage.Miscarriages happen because things were not developing as they were supposed to. You still have some tissue from the in your uterus. Because of this, you may have some bleeding. It might be light spotting or as heavy as a period. You may also have some cramping. Usuallyall of the tissue will pass out by [...] or pink flesh. If tissue has not passedfrom your vagina within the next 5 days, you need to see your healthcare provider for another exam.To prevent infection in the uterus, your provider [...] container and bring it to your provider. [id number] [employer]. [address] [place] [address], [place] [address]. All rights reserved. This information is not intended as a substitute for professional medical care. Always follow yourhealthcare professional's instructions. Urinary Tract Infections in Women Urinary tract infections (UTIs) are most often caused by bacteria. These bacteria enter the urinarytract. The bacteria may come from outside the body. Or they may travel from the skin outside the rectum or vagina into the urethra. Female anatomy makes it easy for bacteria from the bowel to enter awoman s urinary tract, which is the most common source of UTI. This means women develop UTIs more often than men. Pain in or around the urinary tract is a common UTI symptom. But the only way to knowfor sure if you have a UTI for [...] feel the urge to urinate. And always urinatebefore going to sleep. Urine that stays in your bladder can lead to infection. Try to urinate before and after sex as well. Practice good personal hygiene. Wipe yourself from front to back after using the toilet. This helpskeep bacteria from getting into the urethra. Use condoms during sex. These help prevent UTIs caused by sexually transmitted bacteria. Also don'tuse spermicides during sex. These can increase the [...] If needed, more treatment may be started. 9800-1429 [employer]. [address] [place] [address]. All rights reserved. This information is not intended as a substitute for professional medical care. Always follow yourhealthcare professional's instructions. Additional Information VACCINATE! IT SAVES LIVES! Members of the community who have not yet received the COVID-19 vaccine and would like to receive it can visit one of [facility] vaccine clinics. There are many vaccine clinic locations within the [facility]. For locations and available times, please visit www.gettheshot.coronavirus.[place].gov/. It is important to note that some COVID mobile vaccine clinics are held outdoors and may be canceled in rainy or stormy conditions. To learn more about pediatric vaccinations (ages 5-11), we invite you to visit the [facility] webpage. https://www.[employer].org/pages/2699-Suoip-Dtsfkcdcapo-Cnejtffpqg-Rhazi-Idq stions.htmlTo learn more about the COVID-19 vaccine, we invite you to visit the CDC website for a list of frequently asked questions. https://www.cdc.gov/coronavirus/2019-ncov/vaccines/faq.html [facility] Patient Portal Access Instructions: Stay connected with your healthcare team and access your personal medical information anytime with the [facility] Patient Portal. If you would like a full copy of your medical records please contact the [facility] Medical Records Department Saturday through Saturday between 8a.m. and 4:30p.m. Please follow the directions below to access the portal: 1.Access the email account you provided upon registration to the [facility].2.Look for an invitation email from [facility].3.Open the email and access the invitation link: Accept Invitation to [place] [facility].Fill in the required cho to create your account. Sign into [email or web address] with your username and password that you [...] you will allow to register on the [facility] Patient Portal for access to your information. You can also access the [facility] Patient Portal on the [employer]. Simply click on Health Records under [employer] and then click on the [employer] logo. HOW TO SAFELY DISPOSE OF PRESCRIPTION MEDICATIONS Please use one of the following methods to safely dispose of your unused medications. 1.Use a drug disposal kit: the drug disposal pouch allows you to safely discard your old and unuseddrugs. Ask your nurse to give you one when you are discharged.2.Visit a local take-back location: Many local pharmacies and police departments have programs that collect old and unwanted prescriptiondrugs. Call your local pharmacy or go to [email or web address] to find one close to you.3.Make use of household items: Use cat litter or old coffee grounds to dispose medications if other options arenot available. Mix your drugs with these household products, seal them in an airtight container andthrow it into the garbage. Call [facility]: [phone] to be sure your drugs can be [...] drowsiness, such as benzodiazepines, also known as benzos,including diazepam and alprazolam, muscle relaxants or sleep aids. Never sell or share prescriptionopioids. This is illegal. Store opioids in a secure place and out of reach of others (including children, family, friends and visitors). The last page(s) of this document has been signed and retained as a CHART COPY Signatures Patient Education Materials Missed Miscarriage Urinary Tract Infections in Women Medication Leaflets My discharge plan and instructions have been reviewed and explained to me and I,KIMANI OWENS understand my current condition and have read and understand these discharge instructions. I have received a written copy of the plan/instructions. If I have questions, I am aware that I should contact my d octor. 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 Work Phone: Evaluation note* Diagnosis Onset Date Resolution Status IUD check up noneactive [facility] Work Phone: Evaluation note* Diagnosis Onset Date Resolution Status IUD check up noneactive Acute left otitis media acut e [facility] Work Phone: Evaluation note* Diagnosis Onset Date Resolution Status [facility] acute Encounter for routine gynecological examination noneactive Encounter for IUD removal no neactive Supervision of high-risk acute UTI in acute Anxiety and depression acute Left renal stone acute [facility] acute acute Supervision of high-risk acute UTI in acute [facility] Work Phone: Evaluation note* Diagnosis Onset Date Resolution Status [facility] acute Encounter for routine gynecological examination noneactive Encounter for IUD removal no neactive Supervision of high-risk acute UTI in acute Anxiety and depression acute Left renal stone acute [facility] acute acute Supervision of high-risk acute UTI in acute Anxiety and depression acute Left renal stone acute acute Supervision of high-risk acute UTI in acute [facility] Work Phone: Evaluation note* Diagnosis Onset Date [facility] for routine gynecological examination noneactive Encounter for IUD removal no neactive Supervision of high-risk acute UTI in acute Anxiety and depression acute Left renal stone acute [facility] acute acute Supervision of high-risk acute UTI in acute Anxiety and depression acute Left renal stone acute acute Supervision of high-risk acute UTI in acute Incomplete acute Incomplete acute [facility] Work Phone: Evaluation note* Diagnosis Onset Date Resolution Status Anxiety and depression acute Left renal stone acute [facility] acute Anxiety and depression acute Left renal stone acute Incomplete acute Incomplete acute [facility] Work Phone: Evaluation note* Diagnosis Onset Date Resolution Status Anxiety and depression acute Left renal stone acute Abdominal pain of right lowe r quadrant during , antepartum acute Amenorrhea acute Anxiety and depression acute History of miscarriage, currently acute Left renal stone acute acute Recurrent UTI acute Supervision of high-risk acute [facility] Work Phone: Evaluation note* Diagnosis Onset Date Resolution Status Anxiety and depression acute Left renal stone acute UTI in acute Abdominal pain of right lowe r quadrant during , antepartum acute Amenorrhea acute Anxiety and depression acute History of miscarriage, currently acute Left renal stone acute acute Recurrent UTI acute Supervision of high-risk acute [facility] Work Phone: Evaluation note* Diagnosis Onset Date Resolution Status Amenorrhea acute Anxiety and depression acute History of miscarriage, currently acute Left renal stone acute acute Recurrent UTI acute Supervision of high-risk acute Amenorrhea acute Anxiety and depression acute History of miscarriage, currently acute Left renal stone acute acute Recurrent UTI acute Supervision of high-risk acute UTI in acute [facility] Work Phone: Evaluation note* Diagnosis Encounter for supervision of high risk in second trimester, antepartum- Primary 21 weeks gestation of state, incidental with care elsewhere in second trimester Depression with anxiety Dysthymic disorder History of recurrent UTI (urinary tract infection) Personal history of urinary (tract) infection History of miscarriage Personal history of other genital system and obstetric disorders Circumvallate placenta, second trimester Dysuria [facility]* Diagnosis 23 weeks gestation of - Primary state, incidental Encounter for supervision of high risk in second trimester, antepartum Benign gestational thrombocytopenia in second trimester (HCC) [facility]* Diagnosis Encounter for anatomic survey- Primary Circumvallate placenta, second trimester Placental abnormality in second trimester 23 weeks gestation of state, incidental [facility]* Diagnosis 24 weeks gestation of - Primary state, incidental documented in this encounter [facility] note* Diagnosis Pre-operative examination- Primary Preoperative examination, unspecified Pain pelvic Gastroesophageal reflux disease, esophagitis presence not specified Low back pain, unspecified back pain laterality, unspecified chronicity, unspecified whether sciatica present Depression with anxiety Dysthymic disorder Current smoker Tobacco use disorder Acute nonintractable headache, unspecified headache type- Primary Heartburn during in second trimester 26 weeks gestation of state, incidental [facility]* Diagnosis Pre-operative examination- Primary Preoperative examination, unspecified Pain pelvic Gastroesophageal reflux disease, esophagitis presence not specified Low back pain, unspecified back pain laterality, unspecified chronicity, unspecified whether sciatica present Depression with anxiety Dysthymic disorder Current smoker Tobacco use disorder Heartburn during in second trimester- Primary Acute nonintractable headache, unspecified headache type Encounter for supervision of other normal in third trimester 28 weeks gestation of state, incidental Need for vaccination Need for prophylactic vaccination and inoculation against unspecified single disease [facility]* Diagnosis Pre-operative examination- Primary Preoperative examination, unspecified Pain pelvic Gastroesophageal reflux disease, esophagitis presence not specified Low back pain, unspecified back pain laterality, unspecified chronicity, unspecified whether sciatica present Depression with anxiety Dysthymic disorder Current smoker Tobacco use disorder Bronchitis- Primary Bronchitis, not specified as acute or chronic Wheezing documented in this encounter [facility] note* Diagnosis Pre-operative examination- Primary Preoperative examination, unspecified Pain pelvic Gastroesophageal reflux disease, esophagitis presence not specified Low back pain, unspecified back pain laterality, unspecified chronicity, unspecified whether sciatica present Depression with anxiety Dysthymic disorder Current smoker Tobacco use disorder Circumvallate placenta during in third trimester, antepartum- Primary 30 weeks gestation of state, incidental Encounter for supervision of other normal in third trimester Need for vaccination Need for prophylactic vaccination and inoculation against unspecified single disease documented in this encounter [facility] note* Diagnosis Pre-operative examination- Primary Preoperative examination, unspecified Pain pelvic Gastroesophageal reflux disease, esophagitis presence not specified Low back pain, unspecified back pain laterality, unspecified chronicity, unspecified whether sciatica present Depression with anxiety Dysthymic disorder Current smoker Tobacco use disorder 32 weeks gestation of - Primary state, incidental Circumvallate placenta during in third trimester, antepartum Encounter for supervision of other normal in third trimester Heartburn during in second trimester documented in this encounter [facility] note* Diagnosis Pre-operative examination- Primary Preoperative examination, unspecified Pain pelvic Gastroesophageal reflux disease, esophagitis presence not specified Low back pain, unspecified back pain laterality, unspecified chronicity, unspecified whether sciatica present Depression with anxiety Dysthymic disorder Current smoker Tobacco use disorder Encounter for supervision of other normal in third trimester- Primary 34 weeks gestation of state, incidental Circumvallate placenta during in third trimester, antepartum Heartburn during in third trimester documented in this encounter [facility] note* Diagnosis Pre-operative examination- Primary Preoperative examination, unspecified Pain pelvic Gastroesophageal reflux disease, esophagitis presence not specified Low back pain, unspecified back pain laterality, unspecified chronicity, unspecified whether sciatica present Depression with anxiety Dysthymic disorder Current smoker Tobacco use disorder Encounter for ultrasound to check growth- Primary Encounter for routine screening for malformation using ultrasonics Circumvallate placenta during in third trimester, antepartum 34 weeks gestation of state, incidental documented in this encounter [facility] note* Diagnosis Pre-operative examination- Primary Preoperative examination, unspecified Pain pelvic Gastroesophageal reflux disease, esophagitis presence not specified Low back pain, unspecified back pain laterality, unspecified chronicity, unspecified whether sciatica present Depression with anxiety Dysthymic disorder Current smoker Tobacco use disorder Encounter for supervision of other normal in third trimester- Primary Circumvallate placenta during in third trimester, antepartum Heartburn during in third trimester 35 weeks gestation of state, incidental [facility]* Diagnosis Pre-operative examination- Primary Preoperative examination, unspecified Pain pelvic Gastroesophageal reflux disease, esophagitis presence not specified Low back pain, unspecified back pain laterality, unspecified chronicity, unspecified whether sciatica present Depression with anxiety Dysthymic disorder Current smoker Tobacco use disorder 36 weeks gestation of - Primary state, incidental Encounter for supervision of other normal in third trimester [facility]* Diagnosis Pre-operative examination- Primary Preoperative examination, unspecified Pain pelvic Gastroesophageal reflux disease, esophagitis presence not specified Low back pain, unspecified back pain laterality, unspecified chronicity, unspecified whether sciatica present Depression with anxiety Dysthymic disorder Current smoker Tobacco use disorder Encounter for supervision of other normal in third trimester- Primary 37 weeks gestation of state, incidental Dysuria Vaginal odor Unspecified symptom associated with female genital organs [facility]* Diagnosis Pre-operative examination- Primary Preoperative examination, unspecified Pain pelvic Gastroesophageal reflux disease, esophagitis presence not specified Low back pain, unspecified back pain laterality, unspecified chronicity, unspecified whether sciatica present Depression with anxiety Dysthymic disorder Current smoker Tobacco use disorder Encounter for supervision of other normal in third trimester- Primary Circumvallate placenta during in third trimester, antepartum 37 weeks gestation of state, incidental [facility]* Diagnosis Pre-operative examination- Primary Preoperative examination, unspecified Pain pelvic Gastroesophageal reflux disease, esophagitis presence not specified Low back pain, unspecified back pain laterality, unspecified chronicity, unspecified whether sciatica present Depression with anxiety Dysthymic disorder Current smoker Tobacco use disorder Encounter for supervision of other normal in third trimester- Primary Circumvallate placenta during in third trimester, antepartum 37 weeks gestation of state, incidental Pelvic pressure in Other specified complication, antepartum [facility]* Diagnosis Pre-operative examination- Primary Preoperative examination, unspecified Pain pelvic Gastroesophageal reflux disease, esophagitis presence not specified Low back pain, unspecified back pain laterality, unspecified chronicity, unspecified whether sciatica present Depression with anxiety Dysthymic disorder Current smoker Tobacco use disorder Encounter for ultrasound to check growth- Primary Encounter for routine screening for malformation using ultrasonics Circumvallate placenta during in third trimester, antepartum 38 weeks gestation of state, incidental documented in this encounter [facility] note* Diagnosis Pre-operative examination- Primary Preoperative examination, unspecified Pain pelvic Gastroesophageal reflux disease, esophagitis presence not specified Low back pain, unspecified back pain laterality, unspecified chronicity, unspecified whether sciatica present Depression with anxiety Dysthymic disorder Current smoker Tobacco use disorder Encounter for supervision of other normal in third trimester- Primary Circumvallate placenta during in third trimester, antepartum 38 weeks gestation of state, incidental Polyhydramnios in third trimester complication, single or unspecified fetus Depression with anxiety Dysthymic disorder documented in this encounter [facility] note* Diagnosis Pre-operative examination- Primary Preoperative examination, unspecified Pain pelvic Gastroesophageal reflux disease, esophagitis presence not specified Low back pain, unspecified back pain laterality, unspecified chronicity, unspecified whether sciatica present Depression with anxiety Dysthymic disorder Current smoker Tobacco use disorder 2 weeks follow-up- Primary Post depression Mental disorders of mother, documented in this encounter [facility] note* Diagnosis Pre-operative examination- Primary Preoperative examination, unspecified Pain pelvic Gastroesophageal reflux disease, esophagitis presence not specified Low back pain, unspecified back pain laterality, unspecified chronicity, unspecified whether sciatica present Depression with anxiety Dysthymic disorder Current smoker Tobacco use disorder History of recurrent UTI (urinary tract infection)- Primary Personal history of urinary (tract) infection Dysuria * Assessment & Plan Note - Kaya Coleman APRN.CNM - 04/30/2024 3:42 PM EST Associated Problem(s): History of recurrent UTI (urinary tract infection) Orders: UA DIP,URINE HCG (POC) * Assessment & Plan Note - Kaya Coleman APRN.CNM - 04/30/2024 3:42 PM EST Associated Problem(s): Dysuria Orders: UA DIP,URINE HCG (POC) URINE CULTURE [facility]* Diagnosis Pre-operative examination- Primary Preoperative examination, unspecified Pain pelvic Gastroesophageal reflux disease, esophagitis presence not specified Low back pain, unspecified back pain laterality, unspecified chronicity, unspecified whether sciatica present Depression with anxiety Dysthymic disorder Current smoker Tobacco use disorder History of recurrent UTI (urinary tract infection)- Primary Personal history of urinary (tract) infection Dysuria PTSD (post-traumatic stress disorder)- Primary Posttraumatic stress disorder Panic disorder with agoraphobia Agoraphobia with panic disorder Social anxiety disorder Social phobia anxiety Mental disorders of mother, Mild episode of recurrent major depressive disorder (HCC) Decreased appetite Anorexia Malaise and fatigue Other malaise and fatigue Abnormal weight loss Loss of weight Marijuana use Cannabis abuse, unspecified Complicated grief Adjustment disorder with depressed mood documented in this encounter [facility] note* Diagnosis Pre-operative examination- Primary Preoperative examination, unspecified Pain pelvic Gastroesophageal reflux disease, esophagitis presence not specified Low back pain, unspecified back pain laterality, unspecified chronicity, unspecified whether sciatica present Depression with anxiety Dysthymic disorder Current smoker Tobacco use disorder History of recurrent UTI (urinary tract infection)- Primary Personal history of urinary (tract) infection Dysuria care and examination- Primary Routine follow-up Screening for malignant neoplasm of cervix Screening for malignant neoplasm of the cervix Encounter for initial prescription of intrauterine contraceptive device (IUD) documented in this encounter [facility] note* Diagnosis Pre-operative examination- Primary Preoperative examination, unspecified Pain pelvic Gastroesophageal reflux disease, esophagitis presence not specified Low back pain, unspecified back pain laterality, unspecified chronicity, unspecified whether sciatica present Depression with anxiety Dysthymic disorder Current smoker Tobacco use disorder History of recurrent UTI (urinary tract infection)- Primary Personal history of urinary (tract) infection Dysuria NO SHOW- Primary documented in this encounter [facility] note* Diagnosis Pre-operative examination- Primary Preoperative examination, unspecified Pain pelvic Gastroesophageal reflux disease, esophagitis presence not specified Low back pain, unspecified back pain laterality, unspecified chronicity, unspecified whether sciatica present Depression with anxiety Dysthymic disorder Current smoker Tobacco use disorder History of recurrent UTI (urinary tract infection)- Primary Personal history of urinary (tract) infection Dysuria Missed menses- Primary Absence of menstruation * Assessment & Plan Note - Kaya Coleman APRN.CNM - 07/22/2024 12:35 PM EDT Associated Problem(s): Missed menses Orders: UA DIP,URINE HCG (POC) [facility]* Diagnosis Pre-operative examination- Primary Preoperative examination, unspecified Pain pelvic Gastroesophageal reflux disease, esophagitis presence not specified Low back pain, unspecified back pain laterality, unspecified chronicity, unspecified whether sciatica present Depression with anxiety Dysthymic disorder Current smoker Tobacco use disorder History of recurrent UTI (urinary tract infection)- Primary Personal history of urinary (tract) infection Dysuria Missed menses- Primary Absence of menstruation Pelvic pain in female- Primary Unspecified symptom associated with female genital organs Endometriosis Endometriosis, site unspecified Endometriosis of uterosacral ligament Recurrent urinary tract infection Urinary tract infection, site not specified [facility]* Diagnosis Pre-operative examination- Primary Preoperative examination, unspecified Pain pelvic Gastroesophageal reflux disease, esophagitis presence not specified Low back pain, unspecified back pain laterality, unspecified chronicity, unspecified whether sciatica present Depression with anxiety Dysthymic disorder Current smoker Tobacco use disorder History of recurrent UTI (urinary tract infection)- Primary Personal history of urinary (tract) infection Dysuria Missed menses- Primary Absence of menstruation PTSD (post-traumatic stress disorder)- Primary Posttraumatic stress disorder Panic disorder with agoraphobia Agoraphobia with panic disorder Social anxiety disorder Social phobia Medication side effect, initial encounter Nightmares associated with chronic post-traumatic stress disorder Other dysfunctions of sleep stages or arousal from sleep Psychosocial stressors Other psychological or physical stress, not elsewhere classified Abnormal weight loss Loss of weight Decreased appetite Anorexia Low serum potassium level Encounter for long-term (current) use of medications Encounter for long-term (current) use of other medications History of miscarriage Personal history of other genital system and obstetric disorders documented in this encounter [facility] note* Diagnosis Pre-operative examination- Primary Preoperative examination, unspecified Pain pelvic Gastroesophageal reflux disease, esophagitis presence not specified Low back pain, unspecified back pain laterality, unspecified chronicity, unspecified whether sciatica present Depression with anxiety Dysthymic disorder Current smoker Tobacco use disorder History of recurrent UTI (urinary tract infection)- Primary Personal history of urinary (tract) infection Dysuria Missed menses- Primary Absence of menstruation Urinary frequency- Primary documented in this encounter [facility] note* Diagnosis Pre-operative examination- Primary Preoperative examination, unspecified Pain pelvic Gastroesophageal reflux disease, esophagitis presence not specified Low back pain, unspecified back pain laterality, unspecified chronicity, unspecified whether sciatica present Depression with anxiety Dysthymic disorder Current smoker Tobacco use disorder History of recurrent UTI (urinary tract infection)- Primary Personal history of urinary (tract) infection Dysuria Missed menses- Primary Absence of menstruation Encounter for supervision of normal in multigravida in first trimester ([facility])- Primary Missed menses Absence of menstruation with uncertain dates, antepartum ([facility]) state, incidental 7 weeks gestation of ([facility] [facility]) state, incidental PTSD (post-traumatic stress disorder) Posttraumatic stress disorder Depression with anxiety Dysthymic disorder History of miscarriage Personal history of other genital system and obstetric disorders documented in this encounter [facility] note* Diagnosis Pre-operative examination- Primary Preoperative examination, unspecified Pain pelvic Gastroesophageal reflux disease, esophagitis presence not specified Low back pain, unspecified back pain laterality, unspecified chronicity, unspecified whether sciatica present Depression with anxiety Dysthymic disorder Current smoker Tobacco use disorder History of recurrent UTI (urinary tract infection)- Primary Personal history of urinary (tract) infection Dysuria Missed menses- Primary Absence of menstruation Urinary frequency- Primary documented in this encounter [facility] note* Diagnosis Pre-operative examination- Primary Preoperative examination, unspecified Pain pelvic Gastroesophageal reflux disease, esophagitis presence not specified Low back pain, unspecified back pain laterality, unspecified chronicity, unspecified whether sciatica present Depression with anxiety Dysthymic disorder Current smoker Tobacco use disorder History of recurrent UTI (urinary tract infection)- Primary Personal history of urinary (tract) infection Dysuria Missed menses- Primary Absence of menstruation Missed menses Absence of menstruation Encounter for supervision of normal in multigravida in first trimester ([facility]) with uncertain dates, antepartum ([facility]) state, incidental 7 weeks gestation of ([facility]) state, incidental PTSD (post-traumatic stress disorder) Posttraumatic stress disorder Depression with anxiety Dysthymic disorder History of miscarriage Personal history of other genital system and obstetric disorders [facility] Diagnosis Pre-operative examination- Primary Preoperative examination, unspecified Pain pelvic Gastroesophageal reflux disease, esophagitis presence not specified Low back pain, unspecified back pain laterality, unspecified chronicity, unspecified whether sciatica present Depression with anxiety Dysthymic disorder Current smoker Tobacco use disorder History of recurrent UTI (urinary tract infection)- Primary Personal history of urinary (tract) infection Dysuria Missed menses- Primary Absence of menstruation NO SHOW- Primary documented in this encounter [facility] note* Diagnosis Pre-operative examination- Primary Preoperative examination, unspecified Pain pelvic Gastroesophageal reflux disease, esophagitis presence not specified Low back pain, unspecified back pain laterality, unspecified chronicity, unspecified whether sciatica present Depression with anxiety Dysthymic disorder Current smoker Tobacco use disorder History of recurrent UTI (urinary tract infection)- Primary Personal history of urinary (tract) infection Dysuria Missed menses- Primary Absence of menstruation Urinary frequency- Primary Dysuria documented in this encounter [facility] note* Diagnosis Pre-operative examination- Primary Preoperative examination, unspecified Pain pelvic Gastroesophageal reflux disease, esophagitis presence not specified Low back pain, unspecified back pain laterality, unspecified chronicity, unspecified whether sciatica present Depression with anxiety Dysthymic disorder Current smoker Tobacco use disorder History of recurrent UTI (urinary tract infection)- Primary Personal history of urinary (tract) infection Dysuria Missed menses- Primary Absence of menstruation Encounter for supervision of normal in multigravida in first trimester ([facility])- Primary screening encounter ([facility]) Unspecified screening documented in this encounter [facility] note* Diagnosis Pre-operative examination- Primary Preoperative examination, unspecified Pain pelvic Gastroesophageal reflux disease, esophagitis presence not specified Low back pain, unspecified back pain laterality, unspecified chronicity, unspecified whether sciatica present Depression with anxiety Dysthymic disorder Current smoker Tobacco use disorder History of recurrent UTI (urinary tract infection)- Primary Personal history of urinary (tract) infection Dysuria Missed menses- Primary Absence of menstruation 12 weeks gestation of ([facility])- Primary state, incidental Suspected anomaly not found documented in this encounter [facility] note* Diagnosis Pre-operative examination- Primary Preoperative examination, unspecified Pain pelvic Gastroesophageal reflux disease, esophagitis presence not specified Low back pain, unspecified back pain laterality, unspecified chronicity, unspecified whether sciatica present Depression with anxiety Dysthymic disorder Current smoker Tobacco use disorder History of recurrent UTI (urinary tract infection)- Primary Personal history of urinary (tract) infection Dysuria Missed menses- Primary Absence of menstruation Nausea and vomiting during ([facility])- Primary UTI (urinary tract infection) in , antepartum ([facility]) Infections of genitourinary tract antepartum documented in this encounter [facility] note* Diagnosis Pre-operative examination- Primary Preoperative examination, unspecified Pain pelvic Gastroesophageal reflux disease, esophagitis presence not specified Low back pain, unspecified back pain laterality, unspecified chronicity, unspecified whether sciatica present Depression with anxiety Dysthymic disorder Current smoker Tobacco use disorder History of recurrent UTI (urinary tract infection)- Primary Personal history of urinary (tract) infection Dysuria Missed menses- Primary Absence of menstruation Encounter for supervision of normal in multigravida in first trimester ([facility])- Primary 15 weeks gestation of ([facility]) state, incidental Nausea and vomiting during ([facility]) PTSD (post-traumatic stress disorder) Posttraumatic stress disorder UTI (urinary tract infection) in , antepartum ([facility]) Infections of genitourinary tract antepartum documented in this encounter [facility] note* Diagnosis Pre-operative examination- Primary Preoperative examination, unspecified Pain pelvic Gastroesophageal reflux disease, esophagitis presence not specified Low back pain, unspecified back pain laterality, unspecified chronicity, unspecified whether sciatica present Depression with anxiety Dysthymic disorder Current smoker Tobacco use disorder History of recurrent UTI (urinary tract infection)- Primary Personal history of urinary (tract) infection Dysuria Missed menses- Primary Absence of menstruation APPOINTMENT CANCELLED- Primary documented in this encounter [facility] note* Diagnosis Onset Date Resolution Status Admit Date Diarrhea acute February 09 11:22am Dyspareunia, female acute Octob er 2024 11:22am Kidney stones acute February 11:22am Nocturia acute February 09 11:22am Recurrent UTI acute February 11:22am Stress incontinence acute Octob er 2024 11:22am [facility] Work Phone: Hospital course Narrative No data available for this section [facility] Discharge instructions Additional Instructions Follow-up with primary care physician as well as urologist. Return back to the ED if symptoms change or worsen. If you do not have 1 follow-up with the [address] [facility] Work Phone: Reason for referral (narrative)* Diagnostic Procedure Only (Routine) - Authorized Specialty Diagnoses / Procedures Referred By Contac t Referred To Contact [facility] Diagnoses Encounter for supervision of high risk in second trimester, antepartum 21 weeks gestation of Circumvallate placenta, second trimester Procedures OBSTETRIC ULTRASOUND WHI US PREG UTERUS AFTER 1ST TRIMEST GESTATION Maximo Goetz APRN.CNP [address] [place] [address] [facility] [address] [place] [address] Referral ID Status Reason Start Date Expiration Date Visits Requested Visits Authorized [id number] Authorized Auto-Generat ed Referral 11/21/2023 11/20/2024 1 1 T [facility] for referral (narrative)* Diagnostic Procedure Only (Routine) - Authorized Specialty Diagnoses / Procedures Referred By Contac t Referred To Contact [facility] Diagnoses Circumvallate placenta during in third trimester, antepartum Procedures OBSTETRIC ULTRASOUND WHI US PREG UTERUS AFTER 1ST TRIMEST GESTATION Kaya Coleman APRN.CNM [address] [place] [address] [facility] [address] [place] [address] Referral ID Status Reason Start Date Expiration Date Visits Requested Visits Authorized [id number] Authorized Auto-Generat ed Referral 01/22/2024 01/21/2025 5 1 T [facility] for referral (narrative)* Outpatient Procedure (Routine) - Authorized Specialty Diagnoses / Procedures Referred By Nelida barrett Referred To Contact [facility] Diagnoses Encounter for initial prescription of intrauterine contraceptive device (IUD) Procedures INSERT INTRAUTERINE DEVICE LEVONORGESTREL IU 52MG 5 YR INSERT INTRAUTERINE DEVICE Palmira Palmer MD [address] [place] [place] [address] [address] Referral ID Status Reason Start Date Expiration Date Visits Requested Visits Authorized [id number] Authorized Auto-Generat ed Referral 06/04/2024 06/04/2025 1 1 [facility] for referral (narrative)No reason for [facility] Work [facility]: Reason for visit Narrative* Diagnostic Procedure Only (Routine) - Closed Specialty Diagnoses / Procedures Referred By Nelida barrett Referred To Contact [facility] Diagnoses Missed menses Encounter for supervision of normal in multigravida in first trimester ([facility]) with uncertain dates, antepartum ([facility]) 7 weeks gestation of ([facility]) PTSD (post-traumatic stress disorder) Depression with anxiety History of miscarriage Procedures OBSTETRIC ULTRASOUND WHI US PREG UTERUS AFTER 1ST TRIMEST 1 GESTATION Kaya Coleman APRN.[facility] [address] [place] [place] [address] Phone: tel: fax: [address] [address] Referral ID Status Reason Start Date Expiration Date V isits Requested Visits Authorized [id number] Closed Auto-Generate d Referral 11/11/2024 11/11/2025 1 1 [facility] Summary Purpose Family History No Family History Records Found Relationship Condition Age at Onset Recorded Date/T melonie father Arthritis Unknown Diabetes mellitus Unknown Hypertension Unknown High blood cholesterol Unknown mother Arthritis Unknown Lupus Unknown Relationship Condition Age at Onset Recorded Date/T melonie father Arthritis Unknown Diabetes mellitus Unknown Hypertension Unknown High blood cholesterol Unknown mother Arthritis Unknown Lupus Unknown Mjpsp-Wozbaunoa-Fykbj (WPW) syndrome Unkn own grandmother Malignant neoplasm of thyroid gland 69 Advance Directives No Advanced Directives Records Found Advance Directive Response Recorded Date/ Time Living Will No April 11 5:06pm Power of Candy Catcher No April 11, 2021 5:06pm Advance Directive Response Recorded Date/ Time Living Will No October 04, 2021 1 2:07pm Power of Candy Catcher No October 04, 2021 12:07pm Advance Directive Response Recorded Date/ Time Living Will No September 03, 2022 9: 31am Power of Candy Catcher No September 03, 2022 9:31am Advance Directive Response Recorded Date/ Time Living Will No November 10, 2022 7 :06am Power of Candy Catcher No November 10, 2022 7:06am Advance Directive Response Recorded Date/ Time Living Will No December 08, 2022 12:33pm Power of Candy Catcher No December 08 12:33pm Advance Directive Response Recorded Date/ Time Living Will No December 31 2:11pm Power of Candy Catcher No December 31, 023 2:11pm Advance Directive Response Recorded Date/ Time Living Will No May 21 3:20pm Power of Candy Catcher No May 21, 2023 3:20pm Advance Directive Response Recorded Date/ Time Living Will No July 29, 2023 2:50pm Power of Candy Catcher No July 28 2:50pm Advance Directive Response Recorded Date/ Time Living Will No August 22, 2023 12:27pm Power of Candy Catcher No August 21 12:27pm Advance Directive Response Recorded Date/ Time Do you have a Healthcare Power of Candy Catcher? No September 30, 2024 10:12am Procedure Findings Note HNO ID: [id number] Author: Candelario Mensah Service: Gynecology Author Type: Physician Type: Brief Op Note Filed: 11/27/2018 12:38 PM Note Text: BRIEF OPERATIVE / PROCEDURE NOTE LOG ID: [id number] SURGERY/PROCEDURE DATE: 11/27/2018 INCISION/PROCEDURE START TIME: 11:50 AM INCISION CLOSE/PROCEDURE END TIME: 12:13 PM SURGEON(S)/PROCEDURALIST(S) AND LICENSED JOURNEYMAN ELECTRICIAN(S): Surgeon(s) and Role: * Joe Mensah - Primary Registered Nurse Income Auditor: Sahara (Rn) JANNA Hill; Shameka (Rn) JANNA Garcia SURGERY/PROCEDURE(S): Dx laparoscopy, fulguration of endometriosis ANESTHESIA: General FINDINGS: Normal uterus, ovaries and tubes. Minimal endometriosis on right uterosacral ligament and anterior cul-de-sac ESTIMATED BLOOD LOSS: 5 mls SPECIMENS: None COMPLICATIONS: None PRE-OP/PRE-PROCEDURE DIAGNOSIS: Pelvic pain POST-OP/POST-PROCEDURE DIAGNOSIS: endometriosis SIGNATURE: Joe Mensah MD PATIENT NAME: Kimani Colon DATE: November 27, 2018 TIME: 12:31 PM PAGER/CONTACT #: Note HNO ID: [id number] Author: Candelario Mensah Service: Gynecology Author Type: [...] not included)... Hospital Course Note HNO ID: [id number] Author: Candelario Mensah Service: Gynecology Author Type: [...] will be given (more content not included)... Chief Complaint and Reason for Visit Chief Complaint RIGHT SIDED CHEST WA LL PAIN Urinary tract infection IUD PLACEMENT PELVIC PAIN Chief Complaint Urinary tract infect ion IUD PLACEMENT PELVIC PAIN n/v Chief Complaint PELVIC AND PERINEAL PAIN IUD DISCOMFORT Reason for Visit IUD check up Chief Complaint PELVIC AND PERINEAL PAIN IUD DISCOMFORT SORE THROAT/SINUS CONCERNS uti sx Reason for Visit IUD check up Acute left otitis media Chief Complaint PELVIC AND PERINEAL PAIN IUD DISCOMFORT SORE THROAT/SINUS CONCERNS uti sx GENERAL ILLNESS Reason for Visit IUD check up Acute left otitis media Chief Complaint 12:20 ESWL KUB- RENAL CALCULUS Annual (BLUING OVEN TENDER) Amb Documentation early , possible UTI New OB E-ORDER Supervision of high risk , unspecified, f Reason for Visit [facility] Encounter for routine gynecological examination Encounter for IUD removal Supervision of high-risk UTI in Anxiety and depression Left renal stone [facility] Supervision of high-risk UTI in Chief Complaint 12:20 ESWL KUB- RENAL CALCULUS Annual (BLUING OVEN TENDER) Amb Documentation early , possible UTI New OB E-ORDER Supervision of high risk , unspecified, f early OB, rescan Reason for Visit [facility] Encounter for routine gynecological examination Encounter for IUD removal Supervision of high-risk UTI in Anxiety and depression Left renal stone [facility] Supervision of high-risk UTI in Anxiety and depression Left renal stone Supervision of high-risk UTI in Chief Complaint KUB- RENAL CALCULUS Annual (BLUING OVEN TENDER) Amb Documentation early , possible UTI New OB E-ORDER Supervision of high risk , unspecified, f early OB, rescan 2 ORDERING DRS/E ORDERS & PAPER Reason for Visit [facility] Encounter for routine gynecological examination Encounter for IUD removal Supervision of high-risk UTI in Anxiety and depression Left renal stone [facility] Supervision of high-risk UTI in Anxiety and depression Left renal stone Supervision of high-risk UTI in Chief Complaint KUB- RENAL CALCULUS Annual (BLUING OVEN TENDER) Amb Documentation early , possible UTI New OB E-ORDER Supervision of high risk , unspecified, f early OB, rescan 2 ORDERING DRS/E ORDERS & PAPER bleeding with Discuss options Reason for Visit [facility] Encounter for routine gynecological examination Encounter for IUD removal Supervision of high-risk UTI in Anxiety and depression Left renal stone [facility] Supervision of high-risk UTI in Anxiety and depression Left renal stone Supervision of high-risk UTI in Incomplete Incomplete Chief Complaint Amb Documentation early , possible UTI New OB E-ORDER Supervision of high risk , unspecified, f early OB, rescan 2 ORDERING DRS/E ORDERS & PAPER bleeding with Discuss options EORDER Reason for Visit Anxiety and depressi on Left renal stone [facility] Anxiety and depression Left renal stone Incomplete Incomplete Chief Complaint Amb Documentation early , possible UTI New OB E-ORDER Supervision of high risk , unspecified, f early OB, rescan 2 ORDERING DRS/E ORDERS & PAPER bleeding with Discuss options EORDER E ORDER E ORDERS FLANK Reason for Visit Anxiety and depressi on Left renal stone [facility] Anxiety and depression Left renal stone Incomplete Incomplete Chief Complaint Supervision of high risk , unspecified, f early OB, rescan 2 ORDERING DRS/E ORDERS & PAPER bleeding with Discuss options EORDER E ORDER E ORDERS FLANK PAIN IN NOB LMP 2/16 PAP Reason for Visit Anxiety and depressi on Left renal stone Abdominal pain of right lower quadrant during , antepartum Amenorrhea Anxiety and depression History of miscarriage, currently Left renal stone Recurrent UTI Supervision of high-risk Chief Complaint Supervision of high risk , unspecified, f early OB, rescan 2 ORDERING DRS/E ORDERS & PAPER bleeding with Discuss options EORDER E ORDER E ORDERS FLANK PAIN IN NOB LMP 2/16 PAP Reason for Visit Anxiety and depressi on Left renal stone UTI in Abdominal pain of right lower quadrant during , antepartum Amenorrhea Anxiety and depression History of miscarriage, currently Left renal stone Recurrent UTI Supervision of high-risk Chief Complaint 2 ORDERING DRS/E ORD ERS & PAPER bleeding with Discuss options EORDER E ORDER E ORDERS FLANK PAIN IN NOB LMP 2/16 PAP bleeding in early per SM Reason for Visit Amenorrhea Anxiety and depression History of miscarriage, currently Left renal stone Recurrent UTI Supervision of high-risk Amenorrhea Anxiety and depression History of miscarriage, currently Left renal stone Recurrent UTI Supervision of high-risk UTI in Chief Complaint KUB- RENAL CALCULUS Annual (BLUING OVEN TENDER) Amb Documentation early , possible UTI New OB E-ORDER Supervision of high risk , unspecified, f early OB, rescan 2 ORDERING DRS/E ORDERS & PAPER bleeding with Reason for Visit [facility] Encounter for routine gynecological examination Encounter for IUD removal Supervision of high-risk UTI in Anxiety and depression Left renal stone [facility] Supervision of high-risk UTI in Anxiety and depression Left renal stone Supervision of high-risk UTI in Chief Complaint 12:20 ESWL KUB- RENAL CALCULUS Annual (BLUING OVEN TENDER) Amb Documentation early , possible UTI New OB E-ORDER Reason for Visit [facility] Encounter for routine gynecological examination Encounter for IUD removal Supervision of high-risk UTI in Anxiety and depression Left renal stone [facility] Supervision of high-risk UTI in Chief Complaint Admit Date general illness September 30, 2024 10:12 am Chief Complaint Admit Date UTI Burning urgency February 09, 2025 11 :22am Reason for Visit Admit Date Diarrhea February 09, 2025 11 :22am Dyspareunia, female February 09, 2025 11 :22am Kidney stones February 09, 2025 11 :22am Nocturia February 09, 2025 11 :22am Recurrent UTI February 09, 2025 11 :22am Stress incontinence February 09, 2025 11 :22am Reason for Referral Specialty Diagnoses / Procedures Referred By Nelida barrett Referred To Contact Diagnoses Decreased appetite Malaise and fatigue Abnormal weight loss Procedures ESTABLISH WITH PRIMARY CARE NEW PATIENT OFFICE/OUTPATIENT NEW HIGH MDM 60 MINUTES Dafne Bradley, PARCEL CONTRACTOR.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 [address] [place] [address] Referral ID Status Reason Start Date Expiration Date Visits Requested Visits Authorized [id number] Authorized PCP Requested Referral 05/07/2024 05/07/2025 1 1 Specialty Diagnoses / Procedures Referred By Contac t Referred To Contact Diagnoses History of depression Procedures CONSULT TO [facility] OFFICE[facility]IENT [facility] MINUTES Kaya Coleman APRN.[facility] [address] [place] [address] Referral ID Status Reason Start Date Expiration Date Visits Requested Visits Authorized [id number] Authorized PCP Requested Referral 4 04/15/2025 1 1 Additional Source Comments INFORMATION SOURCE (unrecogn ized section and content) DATE CREATED AUTHOR 10/29/2017 [facility] DATE CREATED AUTHOR AUTHOR'S ORGANIZ ATION 11/28/2018 [facility] DATE CREATED AUTHOR AUTHOR'S ORGANIZ ATION 05/26/2023 [facility] (ID) DATE CREATED AUTHOR AUTHOR'S ORGANIZ ATION 10/30/2023 [facility] DATE CREATED AUTHOR AUTHOR'S ORGANIZ ATION 12/19/2023 [facility] DATE CREATED AUTHOR AUTHOR'S ORGANIZ ATION 02/11/2025 [facility] DATE CREATED AUTHOR AUTHOR'S ORGANIZ ATION 02/12/2025 [facility] Goals (unrecognized section and content) Type Care Experience Care Experience svdLabor Preferences -CB/BF classes: []labor support person: []labor intervention preferences: []pain management options preferred: []cut cord/dad catch: []: []PP control planned: []discussed possible routes of delivery and associated risks: []special requests: [] Care Experience SVDLabor Preferences -CB/BF classes: nolabor support person: Michaellabor intervention preferences: open to standard interventionspain management options preferred: considering natural but likely epiduralcut cord/dad catch: yesbreastfeeding: yesPP control planned: pilldiscussed possible routes of delivery and associated risks: discussed possible delivery modalities and possible indications for each including R/B/A of , VAVD, FAVD, and CS. questions answered.special requests: none Care Experience Labor Preferences-CB /BF classes: []labor support person: []labor intervention preferences: []pain management options preferred: []cut cord/dad catch: []: []PP control planned: []discussed possible routes of delivery and associated risks: []special requests: [] Care Teams (unrecognized sec tion and content) Team Status: Active Member Role Status Dates Dr. Deysi Soriano MD Family Provider Active No Primary Care Physician Primary Care Provider Active Team Status: Inactive Member Role Status Dates No Primary Care Physician Primary Care Provider, Refer ring Provider Active Sandra Stone CARETAKER GROUNDS, CARETAKER GROUNDS-C Attending Provider Active Team Status: Inactive Member Role Status Dates No Primary Care Physician Primary Care Provider Active Sandra Stone CARETAKER [employer]OUNDS, CARETAKER GROUNDS-C Attending Provider, Referring Provider Active Team Status: Inactive Member Role Status Dates No Primary Care Physician Primary Care Provider, Refer ring Provider Active Santosh Dia PA, PA Attending Provider Active Team Status: Inactive Member Role Status Dates No Primary Care Physician Primary Care Provider Active Dr. Delfin Bashir MD Emergency Provider Active Team Status: Inactive Member Role Status Dates No Primary Care Physician Primary Care Provider Active Dr. Delfin Bashir MD Attending Provider, Emergency Provider Active Team Status: Inactive Member Role Status Dates No Primary Care Physician Primary Care Provider Active Dr. Radha Curtis DO Emergency Provider Active Team Status: Inactive Member Role Status Dates No Primary Care Physician Primary Care Provider, Refer ring Provider Active Neda Ramos CNM Attending Provider Active Team Status: Active Member Role Status Dates No Primary Care Physician Primary Care Provider Active Rowan Valencia RN Attending Provider Active Team Status: Inactive Member Role Status Dates No Primary Care Physician Primary Care Provider Active Dr. Shy Henry MD Attending Provider, Referring P terri Active Team Status: Active Member Role Status Dates No Primary Care Physician Primary Care Provider Active Neda Ramos CNM Attending Provider, Referring Pro vider Active Team Status: Inactive Member Role Status Dates No Primary Care Physician Primary Care Provider Active Neda Ramos CNM Attending Provider, Referring Pro vider Active Team Status: Active Member Role Status Dates No Primary Care Physician Primary Care Provider Active Dr. Tony Gloria MD Attending Provider, Referr ing Provider Active Team Status: Inactive Member Role Status Dates No Primary Care Physician Primary Care Provider, Refer ring Provider Active Nini Anderson CNM Attending Provider Active Team Status: Inactive Member Role Status Dates No Primary Care Physician Primary Care Provider Active Dr. Tony Gloria MD Attending Provider, Referr ing Provider Active Team Status: Inactive Member Role Status Dates No Primary Care Physician Primary Care Provider Active Nini Anderson CNM Attending Provider, Referring Pr ovider Active Sandra Stone [employer], [employer] Other Provider Active Team Status: Inactive Member Role Status Dates No Primary Care Physician Primary Care Provider, Refer ring Provider Active Dr. Palmira Duncan DO Attending Provider Activ e Team Status: Active Member Role Status Dates No Primary Care Physician Primary Care Provider Active Dr. Palmira Duncan DO Attending Provider, Referring Provider, Other Provider Active Team Status: Inactive Member Role Status Dates No Primary Care Physician Primary Care Provider Active Ed Physician Provider Emergency Provider Active Team Status: Inactive Member Role Status Dates No Primary Care Physician Primary Care Provider Active Dr. Palmira Duncan DO Attending Provider, Refe rring Provider Active Team Status: Inactive Member Role Status Dates No Primary Care Physician Primary Care Provider Active Ed Physician Provider Attending Provider, Emergency Pr ovider Active Team Status: Active Member Role Status Dates No Primary Care Physician Primary Care Provider Active Dr. Palmira Henao MD Emergency Provider Active Team Status: Inactive Member Role Status Dates No Primary Care Physician Primary Care Provider Active Dr. Palmira Henao MD Emergency Provider Active Team Status: Inactive Member Role Status Dates No Primary Care Physician Primary Care Provider Active Dr. Palmira Henao MD Attending Provider, Emergency Provider Active Team Status: Active Member Role Status Dates No Primary Care Physician Primary Care Provider Active Sandra Stone [employer], [employer] Attending Provider, Referring Provider Active Team Status: Active Member Role Status Dates No Primary Care Physician Primary Care Provider Active Team Status: Inactive Member Role Status Dates No Primary Care Physician Primary Care Provider Active Start: September 30, 2024 End: September 30, 2024 Dr. Ihsan Heart DO Emergency Provider Activ e Start: September 30, 2024 End: September 30, 2024 Team Status: Active Member Role/Relationship Status Dates No Primary Care Physician Primary care physician Activ e Team Status: Inactive Member Role/Relationship Status Dates No Primary Care Physician Primary care physician Activ e Start: November 03, 2024 Dr. Shy Henry MD Attending physician Active Start: November 03, 2024 Team Status: Inactive Member Role/Relationship Status Dates No Primary Care Physician Primary care physician Activ e Start: February 09, 2025 End: February 09, 2025 No Primary Care Physician Referring Provider Active Start: February 09, 2025 End: February 09, 2025 Dr. Shy Henry MD Attending physician Active Start: February 09, 2025 End: February 09, 2025 Source Comments (unrecognize d section and content) In the event this informatio n is protected by the Federal Confidentiality of Alcohol and Drug Abuse Patient Records regulations: The Federal rules restrict any use of the information to criminally investigate or prosecute any alcohol or drug abuse patient.[facility] CenterIn the event this information is protected by the Federal Confidentiality of Alcohol and Drug Abuse Patient Records regulations: The Federal rules restrict any use of the information to criminally investigate or prosecute any alcohol or drug abuse patient.[facility] CenterIn the event this information is protected by the Federal Confidentiality of Alcohol and Drug Abuse Patient Records regulations: The Federal rules restrict any use of the information to criminally investigate or prosecute any alcohol or drug abuse patient.[facility] CenterIn the event this information is protected by the Federal Confidentiality of Alcohol and Drug Abuse Patient Records regulations: The Federal rules restrict any use of the information to criminally investigate or prosecute any alcohol or drug abuse patient.[facility] CenterIn the event this information is protected by the Federal Confidentiality of Alcohol and Drug Abuse Patient Records regulations: The Federal rules restrict any use of the information to criminally investigate or prosecute any alcohol or drug abuse patient.[facility] CenterIn the event this information is protected by the Federal Confidentiality of Alcohol and Drug Abuse Patient Records regulations: The Federal rules restrict any use of the information to criminally investigate or prosecute any alcohol or drug abuse patient.[facility] CenterIn the event this information is protected by the Federal Confidentiality of Alcohol and Drug Abuse Patient Records regulations: The Federal rules restrict any use of the information to criminally investigate or prosecute any alcohol or drug abuse patient.[facility] CenterIn the event this information is protected by the Federal Confidentiality of Alcohol and Drug Abuse Patient Records regulations: The Federal rules restrict any use of the information to criminally investigate or prosecute any alcohol or drug abuse patient.[facility] CenterIn the event this information is protected by the Federal Confidentiality of Alcohol and Drug Abuse Patient Records regulations: The Federal rules restrict any use of the information to criminally investigate or prosecute any alcohol or drug abuse patient.[facility] CenterIn the event this information is protected by the Federal Confidentiality of Alcohol and Drug Abuse Patient Records regulations: The Federal rules restrict any use of the information to criminally investigate or prosecute any alcohol or drug abuse patient.[facility] CenterIn the event this information is protected by the Federal Confidentiality of Alcohol and Drug Abuse Patient Records regulations: The Federal rules restrict any use of the information to criminally investigate or prosecute any alcohol or drug abuse patient.[facility] CenterIn the event this information is protected by the Federal Confidentiality of Alcohol and Drug Abuse Patient Records regulations: The Federal rules restrict any use of the information to criminally investigate or prosecute any alcohol or drug abuse patient.[facility] CenterIn the event this information is protected by the Federal Confidentiality of Alcohol and Drug Abuse Patient Records regulations: The Federal rules restrict any use of the information to criminally investigate or prosecute any alcohol or drug abuse patient.[facility] CenterIn the event this information is protected by the Federal Confidentiality of Alcohol and Drug Abuse Patient Records regulations: The Federal rules restrict any use of the information to criminally investigate or prosecute any alcohol or drug abuse patient.[facility] CenterIn the event this information is protected by the Federal Confidentiality of Alcohol and Drug Abuse Patient Records regulations: The Federal rules restrict any use of the information to criminally investigate or prosecute any alcohol or drug abuse patient.[facility] CenterIn the event this information is protected by the Federal Confidentiality of Alcohol and Drug Abuse Patient Records regulations: The Federal rules restrict any use of the information to criminally investigate or prosecute any alcohol or drug abuse patient.[facility] CenterIn the event this information is protected by the Federal Confidentiality of Alcohol and Drug Abuse Patient Records regulations: The Federal rules restrict any use of the information to criminally investigate or prosecute any alcohol or drug abuse patient.[facility] CenterIn the event this information is protected by the Federal Confidentiality of Alcohol and Drug Abuse Patient Records regulations: The Federal rules restrict any use of the information to criminally investigate or prosecute any alcohol or drug abuse patient.[facility] CenterIn the event this information is protected by the Federal Confidentiality of Alcohol and Drug Abuse Patient Records regulations: The Federal rules restrict any use of the information to criminally investigate or prosecute any alcohol or drug abuse patient.[facility] CenterIn the event this information is protected by the Federal Confidentiality of Alcohol and Drug Abuse Patient Records regulations: The Federal rules restrict any use of the information to criminally investigate or prosecute any alcohol or drug abuse patient.[facility] CenterIn the event this information is protected by the Federal Confidentiality of Alcohol and Drug Abuse Patient Records regulations: The Federal rules restrict any use of the information to criminally investigate or prosecute any alcohol or drug abuse patient.[facility] CenterIn the event this information is protected by the Federal Confidentiality of Alcohol and Drug Abuse Patient Records regulations: The Federal rules restrict any use of the information to criminally investigate or prosecute any alcohol or drug abuse patient.[facility] CenterIn the event this information is protected by the Federal Confidentiality of Alcohol and Drug Abuse Patient Records regulations: The Federal rules restrict any use of the information to criminally investigate or prosecute any alcohol or drug abuse patient.[facility] CenterIn the event this information is protected by the Federal Confidentiality of Alcohol and Drug Abuse Patient Records regulations: The Federal rules restrict any use of the information to criminally investigate or prosecute any alcohol or drug abuse patient.[facility] CenterIn the event this information is protected by the Federal Confidentiality of Alcohol and Drug Abuse Patient Records regulations: The Federal rules restrict any use of the information to criminally investigate or prosecute any alcohol or drug abuse patient.[facility] CenterIn the event this information is protected by the Federal Confidentiality of Alcohol and Drug Abuse Patient Records regulations: The Federal rules restrict any use of the information to criminally investigate or prosecute any alcohol or drug abuse patient.[facility] CenterIn the event this information is protected by the Federal Confidentiality of Alcohol and Drug Abuse Patient Records regulations: The Federal rules restrict any use of the information to criminally investigate or prosecute any alcohol or drug abuse patient.[facility] CenterIn the event this information is protected by the Federal Confidentiality of Alcohol and Drug Abuse Patient Records regulations: The Federal rules restrict any use of the information to criminally investigate or prosecute any alcohol or drug abuse patient.[facility] CenterIn the event this information is protected by the Federal Confidentiality of Alcohol and Drug Abuse Patient Records regulations: The Federal rules restrict any use of the information to criminally investigate or prosecute any alcohol or drug abuse patient.[facility] CenterIn the event this information is protected by the Federal Confidentiality of Alcohol and Drug Abuse Patient Records regulations: The Federal rules restrict any use of the information to criminally investigate or prosecute any alcohol or drug abuse patient.[facility] CenterIn the event this information is protected by the Federal Confidentiality of Alcohol and Drug Abuse Patient Records regulations: The Federal rules restrict any use of the information to criminally investigate or prosecute any alcohol or drug abuse patient.[facility] CenterIn the event this information is protected by the Federal Confidentiality of Alcohol and Drug Abuse Patient Records regulations: The Federal rules restrict any use of the information to criminally investigate or prosecute any alcohol or drug abuse patient.[facility] CenterIn the event this information is protected by the Federal Confidentiality of Alcohol and Drug Abuse Patient Records regulations: The Federal rules restrict any use of the information to criminally investigate or prosecute any alcohol or drug abuse patient.[facility] CenterIn the event this information is protected by the Federal Confidentiality of Alcohol and Drug Abuse Patient Records regulations: The Federal rules restrict any use of the information to criminally investigate or prosecute any alcohol or drug abuse patient.[facility] CenterIn the event this information is protected by the Federal Confidentiality of Alcohol and Drug Abuse Patient Records regulations: The Federal rules restrict any use of the information to criminally investigate or prosecute any alcohol or drug abuse patient.[facility] CenterIn the event this information is protected by the Federal Confidentiality of Alcohol and Drug Abuse Patient Records regulations: The Federal rules restrict any use of the information to criminally investigate or prosecute any alcohol or drug abuse patient.[facility] CenterIn the event this information is protected by the Federal Confidentiality of Alcohol and Drug Abuse Patient Records regulations: The Federal rules restrict any use of the information to criminally investigate or prosecute any alcohol or drug abuse patient.[facility] CenterIn the event this information is protected by the Federal Confidentiality of Alcohol and Drug Abuse Patient Records regulations: The Federal rules restrict any use of the information to criminally investigate or prosecute any alcohol or drug abuse patient.[facility] CenterIn the event this information is protected by the Federal Confidentiality of Alcohol and Drug Abuse Patient Records regulations: The Federal rules restrict any use of the information to criminally investigate or prosecute any alcohol or drug abuse patient.[facility] CenterIn the event this information is protected by the Federal Confidentiality of Alcohol and Drug Abuse Patient Records regulations: The Federal rules restrict any use of the information to criminally investigate or prosecute any alcohol or drug abuse patient.[facility] CenterIn the event this information is protected by the Federal Confidentiality of Alcohol and Drug Abuse Patient Records regulations: The Federal rules restrict any use of the information to criminally investigate or prosecute any alcohol or drug abuse patient.[facility] CenterIn the event this information is protected by the Federal Confidentiality of Alcohol and Drug Abuse Patient Records regulations: The Federal rules restrict any use of the information to criminally investigate or prosecute any alcohol or drug abuse patient.[facility] CenterIn the event this information is protected by the Federal Confidentiality of Alcohol and Drug Abuse Patient Records regulations: The Federal rules restrict any use of the information to criminally investigate or prosecute any alcohol or drug abuse patient.[facility] CenterIn the event this information is protected by the Federal Confidentiality of Alcohol and Drug Abuse Patient Records regulations: The Federal rules restrict any use of the information to criminally investigate or prosecute any alcohol or drug abuse patient.[facility] CenterIn the event this information is protected by the Federal Confidentiality of Alcohol and Drug Abuse Patient Records regulations: The Federal rules restrict any use of the information to criminally investigate or prosecute any alcohol or drug abuse patient.[facility] CenterIn the event this information is protected by the Federal Confidentiality of Alcohol and Drug Abuse Patient Records regulations: The Federal rules restrict any use of the information to criminally investigate or prosecute any alcohol or drug abuse patient.[facility] CenterIn the event this information is protected by the Federal Confidentiality of Alcohol and Drug Abuse Patient Records regulations: The Federal rules restrict any use of the information to criminally investigate or prosecute any alcohol or drug abuse patient.[facility] CenterIn the event this information is protected by the Federal Confidentiality of Alcohol and Drug Abuse Patient Records regulations: The Federal rules restrict any use of the information to criminally investigate or prosecute any alcohol or drug abuse patient.[facility] CenterIn the event this information is protected by the Federal Confidentiality of Alcohol and Drug Abuse Patient Records regulations: The Federal rules restrict any use of the information to criminally investigate or prosecute any alcohol or drug abuse patient.[facility] CenterIn the event this information is protected by the Federal Confidentiality of Alcohol and Drug Abuse Patient Records regulations: The Federal rules restrict any use of the information to criminally investigate or prosecute any alcohol or drug abuse patient.[facility] CenterIn the event this information is protected by the Federal Confidentiality of Alcohol and Drug Abuse Patient Records regulations: The Federal rules restrict any use of the information to criminally investigate or prosecute any alcohol or drug abuse patient.[facility] CenterIn the event this information is protected by the Federal Confidentiality of Alcohol and Drug Abuse Patient Records regulations: The Federal rules restrict any use of the information to criminally investigate or prosecute any alcohol or drug abuse patient.[facility] CenterIn the event this information is protected by the Federal Confidentiality of Alcohol and Drug Abuse Patient Records regulations: The Federal rules restrict any use of the information to criminally investigate or prosecute any alcohol or drug abuse patient.[facility] CenterIn the event this information is protected by the Federal Confidentiality of Alcohol and Drug Abuse Patient Records regulations: The Federal rules restrict any use of the information to criminally investigate or prosecute any alcohol or drug abuse patient.[facility] CenterIn the event this information is protected by the Federal Confidentiality of Alcohol and Drug Abuse Patient Records regulations: The Federal rules restrict any use of the information to criminally investigate or prosecute any alcohol or drug abuse patient.[facility] CenterIn the event this information is protected by the Federal Confidentiality of Alcohol and Drug Abuse Patient Records regulations: The Federal rules restrict any use of the information to criminally investigate or prosecute any alcohol or drug abuse patient.[facility] CenterIn the event this information is protected by the Federal Confidentiality of Alcohol and Drug Abuse Patient Records regulations: The Federal rules restrict any use of the information to criminally investigate or prosecute any alcohol or drug abuse patient.[facility] CenterIn the event this information is protected by the Federal Confidentiality of Alcohol and Drug Abuse Patient Records regulations: The Federal rules restrict any use of the information to criminally investigate or prosecute any alcohol or drug abuse patient.[facility] CenterIn the event this information is protected by the Federal Confidentiality of Alcohol and Drug Abuse Patient Records regulations: The Federal rules restrict any use of the information to criminally investigate or prosecute any alcohol or drug abuse patient.[facility] CenterIn the event this information is protected by the Federal Confidentiality of Alcohol and Drug Abuse Patient Records regulations: The Federal rules restrict any use of the information to criminally investigate or prosecute any alcohol or drug abuse patient.[facility] CenterIn the event this information is protected by the Federal Confidentiality of Alcohol and Drug Abuse Patient Records regulations: The Federal rules restrict any use of the information to criminally investigate or prosecute any alcohol or drug abuse patient.[facility] CenterIn the event this information is protected by the Federal Confidentiality of Alcohol and Drug Abuse Patient Records regulations: The Federal rules restrict any use of the information to criminally investigate or prosecute any alcohol or drug abuse patient.[facility] CenterIn the event this information is protected by the Federal Confidentiality of Alcohol and Drug Abuse Patient Records regulations: The Federal rules restrict any use of the information to criminally investigate or prosecute any alcohol or drug abuse patient.[facility] CenterIn the event this information is protected by the Federal Confidentiality of Alcohol and Drug Abuse Patient Records regulations: The Federal rules restrict any use of the information to criminally investigate or prosecute any alcohol or drug abuse patient.[facility] CenterIn the event this information is protected by the Federal Confidentiality of Alcohol and Drug Abuse Patient Records regulations: The Federal rules restrict any use of the information to criminally investigate or prosecute any alcohol or drug abuse patient.[facility] CenterIn the event this information is protected by the Federal Confidentiality of Alcohol and Drug Abuse Patient Records regulations: The Federal rules restrict any use of the information to criminally investigate or prosecute any alcohol or drug abuse patient.[facility] CenterIn the event this information is protected by the Federal Confidentiality of Alcohol and Drug Abuse Patient Records regulations: The Federal rules restrict any use of the information to criminally investigate or prosecute any alcohol or drug abuse patient.[facility] CenterIn the event this information is protected by the Federal Confidentiality of Alcohol and Drug Abuse Patient Records regulations: The Federal rules restrict any use of the information to criminally investigate or prosecute any alcohol or drug abuse patient.[facility] CenterIn the event this information is protected by the Federal Confidentiality of Alcohol and Drug Abuse Patient Records regulations: The Federal rules restrict any use of the information to criminally investigate or prosecute any alcohol or drug abuse patient.[facility] CenterIn the event this information is protected by the Federal Confidentiality of Alcohol and Drug Abuse Patient Records regulations: The Federal rules restrict any use of the information to criminally investigate or prosecute any alcohol or drug abuse patient.[facility] Reason for Visit (unrecogniz ed section and content) Reason Comments No Show Specialty Diagnoses / Procedures Referred By Contabhijit t Referred To Contact Diagnoses PTSD (post-traumatic stress disorder) Encounter for long-term (current) use of medications Procedures OFFICE/OUTPATIENT [facility] MDM 60 MINUTES Dafne Bradley APRN.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 [address] [place] [address] Phone: tel: fax: Referral ID Status Reason Start Date Expiration Date Visits Requested Visits Authorized [id number] Authorized PCP Requested Referral 10/15/2024 10/15/2025 1 1 Reason Comments Care Reason Comments Initial OB Visit [place] Reason Comments PRAF Reason Onset Date Comments Care 12/05/2023 Reason Comments US Specialty Diagnoses / Procedures Referred By Nelida t Referred To Contact [facility] Diagnoses Encounter for supervision of high risk in second trimester, antepartum 21 weeks gestation of Circumvallate placenta, second trimester Procedures OBSTETRIC ULTRASOUND WHI US PREG UTERUS AFTER 1ST TRIMEST GESTATION Maximo Goetz, PARCEL CONTRACTOR.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 [address] [place] [address] [facility] [address] [place] [address] Referral ID Status Reason Start Date Expiration Date V isits Requested Visits Authorized [id number] Closed Auto-Generate d Referral 11/21/2023 11/20/2024 1 1 Reason Comments Results Reason Onset Date Comments Care 01/03/2024 Reason Comments Cough Chest and nasal deidre estion, chest heaviness, wheeze x 1 week Reason Comments OB Shortness of Breath Reason Onset Date Comments Care 02/05/2024 Reason Onset Date Comments Care 02/19/2024 Specialty Diagnoses / Procedures Referred By Nelida t Referred To Contact [facility] Diagnoses Circumvallate placenta during in third trimester, antepartum Procedures OBSTETRIC ULTRASOUND WHI US PREG UTERUS AFTER 1ST TRIMEST GESTATION Kaya Coleman APRN.SHANTELL [address] [place] [address] [facility] [address] [place] [address] Referral ID Status Reason Start Date Expiration Date V isits Requested Visits Authorized [id number] Closed Auto-Generate d Referral 01/22/2024 01/21/2025 5 1 Reason Onset Date Comments Care 02/27/2024 Reason Onset Date Comments Care 03/03/2024 Reason Onset Date Comments Care 03/09/2024 Reason Onset Date Comments Care 03/11/2024 Reason Onset Date Comments Care 03/12/2024 Reason Onset Date Comments Population Health Navigation Outreach 03/13/2024 Ob/peds Reason Onset Date Comments Care 03/19/2024 Reason Comments Ob Delivery Note Reason Comments Question Reason Comments Early Reason Comments UTI Reason Comments New Patient Evaluation Specialty Diagnoses / Procedures Referred By Nelida barrett Referred To Contact Diagnoses History of depression Procedures CONSULT TO [facility] OFFICE/OUTPATIENT NEW HIGH MDM 60 MINUTES Kaya Coleman APRN.SHANTELL [address] [place] [address] Referral ID Status Reason Start Date Expiration Date V isits Requested Visits Authorized [id number] Closed PCP Requested Referral 04/15/2024 04/15/2025 1 1 Reason Comments Routine Reason Comments Faint + tests Reason Comments Specialty Diagnoses / Procedures Referred By Nelida t Referred To Contact Psychiatry / ADULT PSYCHIATRY Diagnoses 2 month follow up Procedures VIDEO PSYC/PSYL EST Dafne Bradley, PARCEL CONTRACTOR.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 [address] [place] [address] Phone: tel: fax: Dafne Bradley, PARCEL CONTRACTOR.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 [address] [place] [address] Phone: tel: fax: Referral ID Status Reason Start Date Expiration Date V isits Requested Visits Authorized [id number] New Request 07/09/2024 10/07/2024 1 1 Reason Comments Problem Visit Reason Comments Discussion Reason Comments Follow Up Specialty Diagnoses / Procedures Referred By Contac t Referred To Contact Psychiatry / ADULT PSYCHIATRY Diagnoses med check Procedures VIDEO PSYC/PSYL EST Dafne Bradley, PARCEL CONTRACTOR.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 [address] [place] [address] Phone: tel: fax: Dafne Bradley, PARCEL CONTRACTOR.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 [address] [place] [address] Phone: tel: fax: Referral ID Status Reason Start Date Expiration Date V isits Requested Visits Authorized [id number] New Request 10/15/2024 01/13/2025 1 1 Reason Comments Urinary Frequency burning and strong o marito of urine x 4 days-7 weeks Reason Comments Initial OB Visit Reason Comments Urinary Frequency burning with urinati on, nausea x today Reason Comments Urinary Frequency Frequency and burnin g x 2 days Specialty Diagnoses / Procedures Referred By Contac t Referred To Contact [facility] Diagnoses with uncertain dates, antepartum (HCC) Procedures OBSTETRIC ULTRASOUND WHI US PREG UTERUS AFTER 1ST TRIMEST GESTATION Kaya Coleman, PARCEL CONTRACTOR.CN [address] [place] [address] Phone: tel: fax: [facility] [address] [place] [address] Referral ID Status Reason Start Date Expiration Date V isits Requested Visits Authorized [id number] Closed Auto-Generate d Referral 11/11/2024 11/11/2025 1 1 Reason Comments Nausea Reason Onset Date Comments Care 01/07/2025 Reason Onset Date Comments Refill Request 01/07/2025 Reason Comments Appointment Rescheduled Specialty Diagnoses / Procedures Referred By Nelida t Referred To Contact Psychiatry / ADULT PSYCHIATRY Diagnoses Follow up for medication refills Procedures VIDEO PSYC/PSYL EST Dafne Bradley, PARCEL CONTRACTOR.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 [address] [place] [address] Phone: tel: fax: Dafne Bradley, PARCEL CONTRACTOR.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 [address] [place] [address] Phone: tel: fax: Referral ID Status Reason Start Date Expiration Date V isits Requested Visits Authorized [id number] New Request 01/13/2025 04/13/2025 1 1 FOR RECORDS PERTAINING TO PATIENTS WHO ARE [...] BE BASED ON THE PRIMARY CLINICAL RECORDS. [facility]. provides no warranty or guarantee of the accuracy or completeness of information in this document.
[2025-05-02 12:09] VITALS: BP 124/73; PULSE 88; RESP 16; TEMP 36.6
[2025-05-02 12:10] VITALS: PULSE 94; O2SAT 100
[2025-05-02 12:23] VITALS: BMI 27.0
[2025-05-02 12:51] LABS: Color, Urine Amber (Yellow); Glucose, Dipstick Normal (Normal); Ketone-Dipstick Negative (Negative); Leukocyte Esterase-Dipstick 100 /ul (Negative); Nitrite-Dipstick Negative (Negative); Occult Blood-Urine 250 /ul (Negative); Protein-Dipstick 100 mg/dl (Negative); Specific Gravity, Urine 1.015 (1.002-1.030); Urine Bilirubin Dipstick Negative (Negative)
[2025-05-02] MEDS: 0.9% Saline Lock 10 ML Syringe IV (13:54)
[2025-05-02] MEDS: Lactated Ringers 500 ML IV.SOLN. 50 ML IV (13:54)
[2025-05-02] MEDS: Gentamicin IV 270 MG in Dextrose 5%-Water (50mL Bag) 50 ML 100 MG IVPB (13:55)
--- NOTE | 2025-05-11 17:00 | OB.TRI.HP_ITS ---
HPI - General General Date of Service: 05/02/25 HPI Narrative FELICIA VICTOR, is a 25 F who presents with back pain and UTI concerns. Maternal Data Information CHRISTIE Calculator Estimated Delivery Date Method Current WG Current Estimate 06/29/25 Manual 33w 0d Gestational age: 31&5 at time of visit [facility] Medical History (spontaneous vaginal delivery) Polyhydramnios depression Depression Anxiety Circumvallate placenta Thrombocytopenia affecting Abdominal pain of right lower quadrant during , antepartum History of miscarriage, currently Supervision of high-risk Chromosome abnormality fetus, affect management of mother, antepartum Easy bruising Incomplete UTI in [place] Left renal stone Marijuana use Low iron Migraine headache Vapes nicotine containing substance History of stress test depression Fatigue Pilonidal cyst Anxiety and depression Home Medications ?Medication ?Instructions ?Recorded ?Last Taken ?Type multivitamin no.47-iron fum 27 1 cap PO DAILY pregnanc y 08/09/23 05/09/25 History mg-folate no.1 1 mg-dha 300 mg capsule (PNV-DHA) ondansetron 4 mg disintegrating 4 mg PO PRN nausea/vom iting 05/03/25 05/09/25 History tablet sulfamethoxazole 200 5 ml PO DAILY 05/07/2505/10 History mg-trimethoprim 40 mg/5 mL oral suspension tamsulosin 0.4 mg capsule 0.4 mg PO DAILY 05/07/2509/28 History Allergy/AdvReac Type Severity Reaction Status Date / Time cephalexin (From Keflex) AdvReac Other Verified 05/10/25 14:47 Family History Father Arthritis Diabetes Hypertension High cholesterol Mother Arthritis Hypertension Lupus Pjjks-Jjrhsfpug-Txdzc (WPW) syndrome Grandmother Thyroid cancer, Onset Age: 70 Maternal Surgical History Status post dilation and curettage Hx of wisdom tooth extraction History of laparoscopy Social History adopted: No household members: spouse and children housing: house number of children: 2 current occupational status: unemployed current occupation: [employer] current occupational exposures/hazards: No pets and animals: Yes (2) pets and animals: dog(s) history of recent travel: No sexually active: Yes Smoking Status: Former smoker quit date: 07/22/23 second hand exposure: No alcohol intake: never substance use type: does not use diet: lactose free well-balanced diet: daily or most days caffeine: No eating out: 1-3 times/week during the past year weight has: remained stable what type of physical activity do you participate in: none amish/amish: None seatbelt use: always do you feel safe at home: Yes 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 history: Lloyd () History 4 Elective abortions Hx Para 3 Spontaneous abortions 1 Hx # Term Pregnancies 2 Ectopic pregnancies Hx # Pregnancies Multiple births # of living children 2 Past Pregnancies Del. Date Name GA/Weeks Outcome Route Bth Weight Infant Gen Labor Lgth Anesthesia Del Locatn Provider FOB 03/24/18 River 40 live - full term 7lbs 5oz Male 12 h ours epidural [facility] SM 10/27/20 Thaddeus 40 live - full term 7lbs 14oz Male ep idural [facility] Ashu 05/21/23 11 spontaneous Delivery Date: 03/24/18 Last Updated by: Tammy Singletary dec- internal monitor used. Delivery Date: 05/21/23 Last Updated by: Mony Oswald D&C @ 11WKS, BABY STOPPED DEVELOPING AT 7 WKS NST FHR Rate Baby A Baseline: 135 Variability:: Moderate Accelerations:: 15 x 15 Decelerations:: Variable Uterine Activity:: quiet Assessment & Plan (1) Recurrent UTI: PLAN: Plan Reactive NST
== END 2025-05-02 16:10 | disposition home or self-care (01) ==
LOC: WPOUT 11:58 → WP 11:59
PROVIDERS: Visit Provider Obstetrics & Gynecology
DX: O23.43 Unspecified infection of urinary tract in pregnancy, third trimester (principal); Z3A.31 31 weeks gestation of pregnancy; Z87.891 Personal history of nicotine dependence
CPT/HCPCS: 96365; 59025; 59050; 81002; 87086; 87088; 99221; A4216; G0378

== ENCOUNTER 2025-05-03 10:32 | Outpatient (CLI) | payer MEDICAID, SELFPAY ==
[2025-05-03] VITALS (16 sets, daily range): BP systolic 119; BP diastolic 75; PULSE 75–112; RESP 16; TEMP 36.6; O2SAT 96–99; BMI 27.1
[2025-05-03] MEDS: Lactated Ringers 1,000 ML 999 ML IV (12:01)
[2025-05-03 12:04] LABS: Hematocrit 32.5 % (37-47); Hemoglobin 10.4 g/dL (12.0-15.0); Immature Granulocytes Count 0.070 X10^3/uL (0.0-0.0); Mean Corp Hgb Conc 32.0 g/dL (32-36); Mean Corpuscular Volume 83.1 fL (81-99); Mean Platelet Vol. 11.3 fl (6.2-12.0); NRBC Flagged by Analyzer 0 % (0-5); Platelet Count 122 K/mm3 (150-450); RBC Distribution Width CV 19.3 % (11.6-14.6); RBC Distribution Width SD 50.8 fl (35.1-43.9); Red Blood Count 3.91 M/mm3 (4.2-5.4); White Blood Count 11.2 K/mm3 (4.4-11.0)
--- NOTE | 2025-05-03 13:02 | CT_ITS ---
PROCEDURE: ABDOMEN/PELVIS WITHOUT CONT 05/03/2025 REASON FOR EXAM: POSSIBLE KIDNEY STONES TECHNIQUE: Procedure Code: CTABDPEL Modality: CT Procedure: ABDOMEN/PELVIS WITHOUT CONT Noncontrast technique limits evaluation of the abdominal and pelvic viscera. Coronal and Sagittal reconstruction series were provided. One or more dose reduction techniques were used (e.g., Automated exposure control, adjustment of the mA and/or kV according to patient size, use of iterative reconstruction technique). RADIATION DOSE SUMMARY: CTDlvol: 8.71 mGy DLP: 439.46 mGycm COMPARISON: None. FINDINGS: Lung bases: Clear. Liver: Unremarkable. Gallbladder: Unremarkable. No biliary dilation. Spleen: Unremarkable. Pancreas: Unremarkable. Adrenals: Unremarkable. Kidneys: A 7 mm stone at the distal right ureter causing severe right hydronephrosis. Punctate stones in the left kidney. No left hydronephrosis. Bladder: Decompressed but otherwise unremarkable. Reproductive Organs: Intrauterine . Bowel: No bowel wall obstruction. Appendix: Unremarkable. Lymph nodes: No lymphadenopathy. Vasculature: No aneurysm. Peritoneum / Retroperitoneum: No free air or free fluid. Bones: No acute bony abnormalities. CT/Abdomen/Pelvis without Cont IMPRESSION: A 7 mm obstructing stone in the distal right ureter causing severe right hydron ephrosis. Reading Location: [facility]
--- NOTE | 2025-05-03 14:12 | OB.TRI.NOTE ---
HPI - General General Date of Service: 05/03/25 HPI Narrative FELICIA VICTOR, is a 25 F @ 31.6 weeks- c/o lower back pain and cramping. denies VB, LOF. pt was treated recently macrobid but does not feel it is working. denies fever. pt reports is vomiting and not keeping anything down. pt reports has had kidney stones before. pt reports pain is 8/10. PFSH [facility] Medical History (Updated 05/03/25 @ 16:[address] Maryam Zhang MD) (spontaneous vaginal delivery) Polyhydramnios depression Depression Anxiety Circumvallate placenta Thrombocytopenia affecting Abdominal pain of right lower quadrant during , antepartum History of miscarriage, currently Supervision of high-risk Chromosome abnormality fetus, affect management of mother, antepartum Easy bruising Incomplete UTI in [place] Left renal stone Marijuana use Low iron Migraine headache Vapes nicotine containing substance History of stress test depression Fatigue Pilonidal cyst Anxiety and depression Home Medications ?Medication ?Instructions ?Recorded ?Last Taken ?Type multivitamin no.47-iron fum 27 1 cap PO DAILY 08/09/23 02/22/24 22:00 History mg-folate no.1 1 mg-dha 300 mg capsule (PNV-DHA) ondansetron 4 mg disintegrating 4 mg PO PRN nausea/vomiting 05/03/25 05/02/25 History tablet Allergy/AdvReac Type Severity Reaction Status Date / Time cephalexin (From Keflex) AdvReac Other Verified 05/03/25 11:16 Family History Father Arthritis Diabetes Hypertension High cholesterol Mother Arthritis Hypertension Lupus Spyzx-Scgagslgt-Majzl (WPW) syndrome Grandmother Thyroid cancer, Onset Age: 70 Maternal Surgical History Status post dilation and curettage Hx of wisdom tooth extraction History of laparoscopy Social History adopted: No household members: spouse and children housing: house number of children: 2 current occupational status: unemployed current occupation: [employer] current occupational exposures/hazards: No pets and animals: Yes (2) pets and animals: dog(s) history of recent travel: No sexually active: Yes Smoking Status: Former smoker quit date: 07/22/23 second hand exposure: No alcohol intake: never substance use type: does not use diet: lactose free well-balanced diet: daily or most days caffeine: No eating out: 1-3 times/week during the past year weight has: remained stable what type of physical activity do you participate in: none amish/adventism: None seatbelt use: always do you feel safe at home: Yes 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 history: Lloyd () History 4 Elective abortions Hx Para 3 Spontaneous abortions 1 Hx # Term Pregnancies 2 Ectopic pregnancies Hx # Pregnancies Multiple births # of living children 2 Past Pregnancies Del. Date Name GA/Weeks Outcome Route Bth Weight Gen Labor Lgth Anesthesia Del Locatn Provider FOB 03/24/18 River 40 live - full term 7lbs 5oz Male 12 hours epidural [facility] SM 10/27/20 Thaddeus 40 live - full term 7lbs 14oz Male epidural [facility] Ashu 05/21/23 11 spontaneous Delivery Date: 03/24/18 Last Updated by: Tammy Singletary dec- internal monitor used. Delivery Date: 05/21/23 Last Updated by: Mony Oswald D&C @ 11WKS, BABY STOPPED DEVELOPING AT 7 WKS Physical Exam Narrative VE: by RN 2/60/-3 posterior (same as previous day) Back: mild right CVA tenderness Const alert and oriented x3 General Appearance: cooperative HEENT normocephalic GI GI Narrative: Gravid, non tender to palpation. OB / External & Speculum: external exam normal Extremity normal to inspection Skin no rashes or lesions noted Neuro oriented x3 and CN's II-XII intact bilaterally Psych Appearance: grossly normal NST FHR Rate Baby A Baseline: 125 Variability:: Moderate Accelerations:: 15 x 15 Decelerations:: None NST Reactive:: Yes FHR Category:: Category I Uterine Activity:: irregular Assessment & Plan (1) Kidney stones: (2) Hydronephrosis concurrent with and due to calculi of kidney and ureter: PLAN: Plan @ 31.6 weeks- Nephrolithiasis 1) Still waiting for results of Ucx from previous visit 2) CT scan- 7mm obstructing stone and right hydronephrosis 3) continue Macrobid until in with Urology 4) urology unavailable today- both are out - was able to schedule appt for 05/07/25 at 1:[address] Henry 5) Flomax ordered 6) Zofran ordered 7) urine straining 8 ) ivf bolus 9) dose of Flomax .4mg before dc home 10) discussed with patient if she does not feel she can tolerate pain or symptoms getting worse would recommend she proceed to [facility] for Urology consultation. I did call and notify [facility] residents she may go for evaluation.
[2025-05-03] MEDS: LACTATED RINGERS 500 ML 999 ML IV (14:20)
== END 2025-05-03 17:15 | disposition home or self-care (01) ==
LOC: WPOUT 10:38 → WP 10:39
PROVIDERS: Referring Provider Obstetrics & Gynecology; Visit Provider Obstetrics & Gynecology
DX: O99.891 Other specified diseases and conditions complicating pregnancy (principal); Z3A.31 31 weeks gestation of pregnancy; N13.2 Hydronephrosis with renal and ureteral calculous obstruction
CPT/HCPCS: 96374; 96361; 59025; 59050; 74176; 85025; 99221; G0378; J2405